=== PATIENT | male | born 1960 | race Caucasian/White ===

== ENCOUNTER 2022-05-17 16:13 | Emergency (ER) | payer OTHER ==
[2022-05-17] MEDS ORDERED: HYDROCODONE/CHLORPHEN 5 ML/OSYR ONE (17:48)
[2022-05-17] MEDS ORDERED: ALBUTEROL 2.5 MG/3 ML NEB SOL ONE (17:49)
[2022-05-17] MEDS ORDERED: IPRATROPIUM BROM 0.5MG/2.5ML ONE (17:49)
--- NOTE | 2022-05-17 19:41 | ER ---
Nurse's Notes [facility] Name: Artem Pena Age: 61 yrs Sex: Male : 1960 Arrival Date: 05/17/2022 Time: 16:15 Bed 9 Private MD: Carlos Young E Diagnosis: Coronavirus infection, unspecified Presentation: 05/17 17:00 Chief complaint: Patient states: tested positive for Covid this morning with a home vg1 test; called [facility] and was told to come to ED for antibodies. Pt c/o headache, body aches, cough and runny nose; denies CP or difficulty breathing, NVD or fever. Coronavirus screen: Vaccine status: Patient reports receiving the 2nd dose of the covid vaccine. Client denies travel out of the [place] in the last 14 days. Ebola Screen: Patient denies exposure to infectious person. Patient denies travel to an Ebola-affected area in the 21 days before illness onset. Initial Sepsis Screen: Does the patient meet any 2 criteria? No. Patient's initial sepsis screen is negative. Does the patient have a suspected source of infection? No. Patient's initial sepsis screen is negative. Risk Assessment: Do you want to hurt yourself or someone else? Patient reports no desire to harm self or others. Onset of symptoms was May 17, 2022. 17:00 Method Of Arrival: Ambulatory vg1 17:00 Acuity: TANGELA 4 vg1 Triage Assessment: 17:03 General: Appears in no apparent distress. uncomfortable, Behavior is calm, cooperative. vg1 Pain: Denies pain. Neuro: Level of Consciousness is awake, alert, obeys commands, Oriented to person, place, time, situation. 21:33 Pain: Also complains of. tw5 Historical: - Allergies: 17:03 Tetanus Vaccines \T\ Toxoid; vg1 - Home Meds: 17:04 Amiodarone Oral [Active]; Furosemide Oral [Active]; vg1 17:06 Insulin [Active]; Jardiance oral [Active]; vg1 - PMHx: 17:03 Diabetes - IDDM; Hypertension; vg1 17:04 Congestive heart failure; vg1 - PSHx: 17:03 Coronary artery bypass graft; vg1 - Immunization history:: Client reports receiving the 2nd dose of the Covid vaccine. - Social history:: Smoking status: Patient denies any tobacco usage or history of. Screenin:21 Abuse screen: Denies threats or abuse. Nutritional screening: No deficits noted. jb4 Tuberculosis screening: No symptoms or risk factors identified. Fall Risk None identified. Assessment: 18:21 General: Appears in no apparent distress. comfortable, Behavior is calm, cooperative, jb4 appropriate for age. Pain: Denies pain. Neuro: Level of Consciousness is awake, alert, obeys commands, Oriented to person, place, time, situation. Cardiovascular: Patient's skin is warm and dry. Respiratory: Airway is patent Respiratory effort is even, unlabored, Respiratory pattern is regular, symmetrical. GI: No signs and/or symptoms were reported involving the gastrointestinal system. : No signs and/or symptoms were reported regarding the genitourinary system. EENT: No signs and/or symptoms were reported regarding the EENT system. Derm: Skin is intact, Skin is pink, warm \T\ dry. Musculoskeletal: Circulation, motion, and sensation intact. Range of motion:. 20:30 Reassessment: Patient appears in no apparent distress at this time. Patient is alert, lp1 oriented x 3, equal unlabored respirations, skin warm/dry/pink. Patient aware of continuing to monitor for s/s of adverse reaction 1 hour after IV infusion. 21:32 Reassessment: Patient states feeling better. Patient states symptoms have improved. tw5 Vital Signs: 17:00 BP 126 / 71; Pulse 78; Resp 16; Temp 98.2(O); Pulse Ox 99% on R/A; Weight 144.24 kg; vg1 Height 6 ft. 4 in. (193.04 cm); Pain 0/10; 19:03 BP 123 / 75; Pulse 85; Resp 16; Pulse Ox 100% on R/A; mb7 20:15 BP 156 / 77; Pulse 79; Resp 18; Temp 97.8(O); Pulse Ox 99% on R/A; lp1 21:32 BP 152 / 72; Pulse Ox 100% on R/A; tw5 17:00 Body Mass Index 38.71 (144.24 kg, 193.04 cm) vg1 ED Course: 16:15 Patient arrived in ED. rg4 16:16 Carlos Young MD is Private Physician. rg4 17:03 Triage completed. vg1 17:04 Arm band placed on. vg1 17:13 Johnathan Nava NP is PHCP. pm1 17:13 Shravan Headley MD is Attending Physician. pm1 17:35 Catrachito Higginbotham, RN is Primary Nurse. jb4 18:21 Patient has correct armband on for positive identification. Bed in low position. Call jb4 light in reach. Side rails up X 1. 19:03 Inserted saline lock: 20 gauge in right forearm, using aseptic technique. mb7 20:18 PHCP role handed off by Johnathan Nava NP [facility] 20:18 Hosea Tavarez PA is PHCP. jmm 20:33 No provider procedures requiring assistance completed. lp1 21:32 IV discontinued, intact, bleeding controlled, No redness/swelling at site. Pressure tw5 dressing applied. Administered Medications: 17:59 Drug: Tussionex Pennkinetic ER (chlorpheniramine-hydrocodone) Suspension 5 ml Route: PO;jb4 18:54 Follow up: Response: No adverse reaction jb4 17:59 Drug: Albuterol 2.5 mg Route: Inhalation; jb4 18:54 Follow up: Response: No adverse reaction jb4 17:59 Drug: AtroVENT (ipratropium) Aerosol 0.5 mg Route: Inhalation; jb4 18:55 Follow up: Response: No adverse reaction jb4 20:25 Drug: Tylenol 1000 mg Route: PO; lp1 20:25 Drug: Benadryl (diphenhydrAMINE) 50 mg Route: IVP; Site: right forearm; lp1 20:30 Drug: Bebtelovimab 175 mg Route: IVP; Site: right forearm; lp1 Medication: 18:21 VIS not applicable for this client. jb4 Outcome: 19:40 Discharge ordered by MD. pm1 21:32 Discharged to home ambulatory. tw5 21:32 Condition: improved 21:32 Discharge instructions given to patient, Instructed on discharge instructions, follow up and referral plans. Demonstrated understanding of instructions, follow-up care, medications, Prescriptions given X 1. 21:33 Patient left the ED. tw5 Signatures: Hosea Tavarez PA PA jmm Pena, Laura, RN RN lp1 Johnathan Nava NP SENIOR UX DEVELOPER pm1 Blanca Sevilla rg4 Catrachito Higginbotham RN RN jb4 Elvia Sevilla RN RN vg1 Celena Magallanes tw5 Cristina Lutz mb7 Corrections: (The following items were deleted from the chart) 17: 17:03 Home Meds: Metoprolol Tartrate Oral; vg1 vg1 17: 17:03 Home Meds: losartan oral; vg1 vg1
--- NOTE | 2022-05-17 19:41 | EDPHYS ---
Physician Documentation [facility] Name: Artem Pena Age: 61 yrs Sex: Male : 1960 Arrival Date: 05/17/2022 Time: 16:15 Bed 9 Private MD: Carlos Young E ED Physician Shravan Headley HPI: 05/17 17:29 This 61 yrs old Male presents to ER via Ambulatory with complaints of Covid+, Headache, pm1 Runny Nose, Cough. 17:29 The patient or guardian reports cough, with no sputum, flu symptoms. Onset: The pm1 symptoms/episode began/occurred yesterday. Modifying factors: The symptoms are alleviated by nothing. the symptoms are aggravated by nothing. Associated signs and symptoms: Pertinent positives: Runny nose, headache, cough, Pertinent negatives: chest pain, ear ache, fever, Shortness of breath. Severity of symptoms: in the emergency department the symptoms are unchanged. The patient has not experienced similar symptoms in the past. The patient has been recently seen by a physician: Patient seen for COVID symptoms by telehealth. Patient took home COVID test and tested positive. Patient was recommended by telehealth medicine to report to the ER for monoclonal antibodies. Historical: - Allergies: 17:03 Tetanus Vaccines \\T\\ Toxoid; vg1 - Home Meds: 17:04 Amiodarone Oral [Active]; Furosemide Oral [Active]; vg1 17:06 Insulin [Active]; Jardiance oral [Active]; vg1 - PMHx: 17:03 Diabetes - IDDM; Hypertension; vg1 17:04 Congestive heart failure; vg1 - PSHx: 17:03 Coronary artery bypass graft; vg1 - Immunization history:: Client reports receiving the 2nd dose of the Covid vaccine. - Social history:: Smoking status: Patient denies any tobacco usage or history of. ROS: 17:29 Cardiovascular: Negative for chest pain, palpitations, and edema. pm1 17:29 Abdomen/GI: Negative for abdominal pain, nausea, vomiting, diarrhea, and constipation, Back: Negative for injury and pain, MS/Extremity: Negative for injury and deformity, Skin: Negative for injury, rash, and discoloration. 17:29 Constitutional: Positive for body aches, Negative for fever, poor PO intake. 17:29 ENT: Positive for sore throat, Negative for ear pain. 17:29 Respiratory: Positive for cough, Negative for shortness of breath. 17:29 Neuro: Positive for headache. 17:29 All other systems are negative. Exam: 17:29 Constitutional: This is a well developed, well nourished patient who is awake, alert, pm1 and in no acute distress. Head/Face: Normocephalic, atraumatic. 17:29 Abdomen/GI: Soft, non-tender, with normal bowel sounds. No distension or tympany. No guarding or rebound. No evidence of tenderness throughout. Back: No spinal tenderness. No costovertebral tenderness. Full range of motion. Skin: Warm, dry with normal turgor. Normal color with no rashes, no lesions, and no evidence of cellulitis. MS/ Extremity: Pulses equal, no cyanosis. Neurovascular intact. Full, normal range of motion. 17:29 Cardiovascular: Exam negative for acute changes, Rate: normal, Rhythm: regular, Pulses: no pulse deficits are appreciated. 17:29 Respiratory: Exam negative for acute changes, respiratory distress, shortness of breath, Breath sounds: are clear throughout. 17:29 Neuro: Exam negative for acute changes, Orientation: is normal, Mentation: is normal, Motor: is normal, moves all fours. Vital Signs: 17:00 BP 126 / 71; Pulse 78; Resp 16; Temp 98.2(O); Pulse Ox 99% on R/A; Weight 144.24 kg; vg1 Height 6 ft. 4 in. (193.04 cm); Pain 0/10; 19:03 BP 123 / 75; Pulse 85; Resp 16; Pulse Ox 100% on R/A; mb7 20:15 BP 156 / 77; Pulse 79; Resp 18; Temp 97.8(O); Pulse Ox 99% on R/A; lp1 21:32 BP 152 / 72; Pulse Ox 100% on R/A; tw5 17:00 Body Mass Index 38.71 (144.24 kg, 193.04 cm) vg1 MDM: 17:15 Patient medically screened. pm1 18:56 ED course: Patient came to the ER with the recommendation from a physician via pm1 telehealth visit to come to the ER for monoclonal antibodies. Patient informed that the medication is authorized by the FDA for emergency use for treatment of high risk coronavirus patients who are not hospitalized and it is currently an investigational drug and not approved for any indication. Patient consents to receiving the medication. 19:38 Data reviewed: vital signs. Data interpreted: Pulse oximetry: on room air is 100 %. pm1 Interpretation: normal. Counseling: I had a detailed discussion with the patient and/or guardian regarding: the historical points, exam findings, and any diagnostic results supporting the discharge/admit diagnosis, lab results, the need for outpatient follow up, to return to the emergency department if symptoms worsen or persist or if there are any questions or concerns that arise at home. 05/17 17:14 Order name: COVID-19 SARS RT PCR (Document "Date of Onset" if Symptomatic); Complete pm1 Time: 18:51 05/17 17:14 Order name: Flu; Complete Time: 18:37 pm1 05/17 17:25 Order name: Strep; Complete Time: 18:37 pm1 05/17 18:09 Order name: Throat Culture EDMS 05/17 18:51 Order name: IV Saline Lock; Complete Time: 19:04 pm1 Administered Medications: 17:59 Drug: Tussionex Pennkinetic ER (chlorpheniramine-hydrocodone) Suspension 5 ml Route: PO;jb4 18:54 Follow up: Response: No adverse reaction jb4 17:59 Drug: Albuterol 2.5 mg Route: Inhalation; jb4 18:54 Follow up: Response: No adverse reaction jb4 17:59 Drug: AtroVENT (ipratropium) Aerosol 0.5 mg Route: Inhalation; jb4 18:55 Follow up: Response: No adverse reaction jb4 20:25 Drug: Tylenol 1000 mg Route: PO; lp1 20:25 Drug: Benadryl (diphenhydrAMINE) 50 mg Route: IVP; Site: right forearm; lp1 20:30 Drug: Bebtelovimab 175 mg Route: IVP; Site: right forearm; lp1 Disposition: 05/18 07:07 Co-signature as Attending Physician, Shravan Headley MD I agree with the assessment and kdr plan of care. Disposition Summary: 05/17/22 19:40 Discharge Ordered Location: Home pm1 Problem: new pm1 Symptoms: have improved pm1 Condition: Stable pm1 Diagnosis - Coronavirus infection, unspecified pm1 Followup: pm1 - With: Emergency Department - When: As needed - Reason: Worsening of condition Followup: pm1 - With: Private Physician - When: 2 - 3 days - Reason: Recheck today's complaints, Continuance of care, Re-evaluation by your physician Discharge Instructions: - Discharge Summary Sheet pm1 - COVID-19 pm1 - COVID-19 Frequently Asked Questions pm1 - 10 Things You Can Do to Manage Your COVID-19 Symptoms at Home - [facility] pm1 - COVID-19: Quarantine vs. Isolation - [facility] pm1 Forms: - Medication Reconciliation Form pm1 - Thank You Letter pm1 - Antibiotic Education pm1 - Prescription Opioid Use pm1 Prescriptions: - Guaifenesin AC 10-100 mg/5 mL Oral Liquid - take 5 milliliter by ORAL route every 4 hours As needed; 120 milliliter; m Refills: 0, Product Selection Permitted Signatures: Dispatcher [employer] EDMS Shravan Headley MD MD kdr Pena, Laura RN RN lp1 Johnathan Nava NP MEDICAL FRONT DESK COORDINATOR pm1 Catrachito Higginbotham, RA RN jb4 Elvia Sevilla, RN RN vg1 Corrections: (The following items were deleted from the chart) 05/17 17:04 17:03 Home Meds: Metoprolol Tartrate Oral; vg1 vg1 17:04 17:03 Home Meds: losartan oral; vg1 vg1
[2022-05-17] MEDS ORDERED: DIPHENHYDRAMINE 50 MG/ML VIAL ONE (20:06)
[2022-05-17] MEDS ORDERED: ACETAMINOPHEN 500 MG TAB ONE (20:06)
[2022-05-17] MEDS ORDERED: BEBTELOVIMAB 175 MG/2 ML VIAL IV ONE (20:24)
[2022-05-17 21:48] VITALS: TEMP 97.8
[2022-05-17 21:50] VITALS: BP 152/72; O2SAT 100
== END 2022-05-17 21:33 | disposition home or self-care (01) ==
LOC: ER 16:13
DX: U07.1 COVID-19 (principal); E11.9 Type 2 diabetes mellitus without complications; I10 Essential (primary) hypertension; I50.9 Heart failure, unspecified; Z79.4 Long term (current) use of insulin; Z88.7 Allergy status to serum and vaccine; Z95.1 Presence of aortocoronary bypass graft
CPT/HCPCS: 87070; 87081; 87804 ×2; 99284; U0003; J1200

== ENCOUNTER 2022-12-19 13:16 | Emergency (ER) | payer OTHER ==
--- OUTSIDE RECORDS SUMMARY | 2022-12-19 13:31 | XMS REPORT | Continuity of Care Document ---
:[address] [facility] t Address [address] [place] [address] Dr. Ju[address]. [address] [place] [address] Care Team Providers Name Role Phone Kj Lopez MD Primary Care Physician KJ LOPEZ Attending Clinician Unavailable MOI ESTRADA Attending Clinician Unavailable MOI ESTRADA Attending Clinician Unavailable MK PORTER Attending Clinician Unavailable KJ LOPEZ Attending Clinician Unavailable Dia Attending Clinician Unavailable Paulette Harris MA Attending Clinician Unavailable AIMEE MCGOWAN Attending Clinician Unavailable Danial KNAPP, Fany Attending Clinician Unavailable Doctor Unassigned, Gaston Attending Clinician Unavailable JUAREZ GAO Attending Clinician Unavailable RAEANN BRAND Attending Clinician Unavailable Juarez Gao MD Attending Clinician [phone] Huy Judge DO Attending Clinician Draw, [facility] Attending Clinician Unavailable Blaise Rebollar Attending Clinician BLAISE CROUCH Attending Clinician Unavailable Angelo KNAPP, Cristina Sheridan Attending Clinician Petrona Padilla Attending Clinician Maya Jessica RN Attending Clinician Jeramy SAFETY PHYSICIAN, Elisabet Rinaldi Attending Clinician Oleksandr Santiago MD Attending Clinician [phone] Dia Admitting Clinician Unavailable AIMEE MCGOWAN Admitting Clinician Unavailable Vishal ASENCIO, Moi Admitting Clinician Oleksandr Santiago MD Admitting Clinician [phone] Payers Payer Name Policy Type Policy Number Effective Date Expiration Date S megan [employer] [id number] 2021 2024 [facility] 00:00:00 00:00:00 OTHER CI [id number] [facility] [id number] [facility] FROM [facility] Problems Condition Condition Condition Status Onset Resolution Last Treating Co mments Source Name Details Category Date Date Treatment Clinician Date Morbid Morbid Problem Active [place] obesity Obesity 07-25 Family 00:00: Practic 00 e Retinopath Retinopath Problem Active [place] y due to y Due to 07-25 Family type 2 Type 2 00:00: Practic diabetes Diabetes 00 e mellitus Mellitus Bilateral Bilateral Problem Active Hilario jada cataracts Cataracts 04 Fami ly 00:00: Practic 00 e Long-term Long-term Problem Active Hilario jada current Current 304 Family use of Use of 00:00: Practic insulin Insulin 00 e 5 MONTH 5 MONTH Diagnosis Active 2022-07-18 Memoria FOLLOW UP FOLLOW UP 12-27 16:05:00 l Active 00:00: Max 12/27/2021 00 [facility] I25.10 I25.10 Diagnosis Active 2020-112021-12-04 Me moria ECHO ECHO 0-26 08:34:00 l COMPLETE COMPLETE 00:00: Riaz sullivan Active 00 09/10/2021 [facility] 3 MONTHS 3 MONTHS Diagnosis Active 2020-112021-12-27 [facility] FOLLOW FOLLOW 0-14 10:07:00 l UP/ECHO UP/ECHO 00:00: Max Active 00 08/29/2021 [facility] P22.0 - P22.0 - Diagnosis Active 2021-07-23 [facility] RESPIRATOR RESPIRATOR 9 14:01:00 l Y DISTRESS Y DISTRESS 00:01: He rmann SYNDROME SYNDROME 00 Active 07/23/2021 OPID [facility] SOB SOB Diagnosis Active 2021 Mem oria Active 07-16 15:20:00 l 07/16/2021 00:00: Riaz sullivan 00 [facility] N/A N/A Diagnosis Active 2021-07-28 Mem oria Active 07-16 12:53:00 l 07/16/2021 00:00: Riaz sullivan 00 [facility] Aspartate Aspartate Problem Active Hilario jada aminotrans Aminotrans 06-23 Fa eliz ferase ferase 00:00: Practic serum Serum 00 e level Level raised Raised I25.10 - I25.10 - Diagnosis Active 2021-06-26 [facility] ATHSCL ATHSCL 06-19 13:26:00 l HEART HEART 00:01: Max DISEASE OF DISEASE OF 00 GAKONA GAKONA Active 06/19/2021 OPID [facility] I25.10 I25.10 Diagnosis Active 2021-06-21 Me moria Active 06-19 09:32:00 l 06/19/2021 00:00: Riaz sullivan 00 [facility] Foot Foot Problem Active [place] callus Callus 06-18 Family 00:00: Practic 00 e Body mass Body Mass Problem Active Hilario jada index 40+ Index 40+ 8-03 Fami ly - severely - Severely 00:00: Pr actic obese Obese 00 e Atheroscle Atheroscle Problem Active [place] ill[place] rosis of rosis of 06-18 Family coronary Coronary 00:00: Practi c artery Artery 00 e without without angina Angina pectoris Pectoris Type 2 Type 2 Problem Active [place] diabetes Diabetes 06-18 Family mellitus Mellitus 00:00: Practi c 00 e Hyperlipid Hyperlipid Problem Active [place] illage emia emia 8- Family 00:00: Practic 00 e Hypertensi Hypertensi Problem Active V illage ve ve 06-18 Family disorder Disorder 00:00: Practi c 00 e Atrial Atrial Problem Active [place] fibrillati Fibrillati 06-18 Fa eliz on on 00:00: Practic 00 e 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 R07.9,I25 Diagnosis Active 2021-06-05 Memoria 10,I25.10, .10,I25.10 05-29 10:50:00 l I50.22 ,I50.22 00:00: Enochs Active 00 05/29/2021 [place] 6WK FOLLOW 6WK Diagnosis Active 2021-08-29 Memoria UP FOLLOW UP 05-23 14:00:00 l Active 00:00: Max 05/23/2021 00 [facility] NSTEMI NSTEMI Disease Active [place] (non-ST (non-ST 05-23 Health elevated elevated 00:00: myocardial myocardial 00 infarction infarction ) ) Acute Acute Disease Active [facility] congestive congestive 05-23 He alth heart heart 00:00: failure failure 00 New onset New onset Disease Active [facility] atrial atrial 05-23 Health fibrillati fibrillati 00:00: on on 00 I50.22 I50.22 Diagnosis Active 2021-05-22 Me moria I25.10 I25.10 05-08 08:25:00 l I48.91 I48.91 00:00: Enochs Active 00 05/08/2021 [facility] I25.10,I50 I25.10,I5 Diagnosis Active 2021-04-18 Memoria .22,I48.91 0.22,I48.9 04-02 07:40:00 l 1 Active 00:00: Max 04/02/2021 00 [place] 2 MO F/U 2 MO F/U Diagnosis Active 2021-05-23 Memoria Active 03-22 10:08:00 l 03/22/2021 00:00: Riaz sullivan [address] FRANCISCO J PT/ NEW Diagnosis Active 2021-03-22 [place] BECKER PT/ 03-04 10:48:00 l VANDERGRIF ROSITA 00:00: Riaz sullivan FT/CHF/UNS VANDERGRIF 00 PE FT/CHF/UNS PE Active 03/04/2021 [facility] Morbid Morbid Disease Active 2019-11 [place] obesity obesity 1-13 Health with body with body 00:00: mass index mass index 00 of of 40.0-49.9 40.0-49.9 Class 3 Class 3 Disease Active 2019-11 [place] severe severe 1-13 Health obesity obesity 00:00: due to due to 00 excess excess calories calories with body with body mass index mass index (BMI) of (BMI) of 40.0 to 40.0 to 44.9 in 44.9 in adult adult Chest pain Chest pain Disease Active 2019-11 U nivers 1-12 ity of 00:00: [address] Branch Congestive Congestiv Problem Resolve 2021-12-29 Memoria heart e heart d 23:48:14 l failure failure Max (disorder) (disorder) Resolved Problem 12/29/2021 [facility], Cammy Alcantar [facility], [facility] [place] Atheroscle Atheroscl Problem Active 2021-12-29 Memoria rosis of erosis of 23:48:14 l coronary coronary Riaz n artery artery (disorder) (disorder) Active Problem 12/29/2021 [facility], Cammy Alcantar [facility] Diabetes Diabetes Problem Active 2021-12-29 Memoria mellitus mellitus 23:48:14 l (disorder) (disorder) He rmann Active Problem 12/29/2021 [facility], NATALIYA Drake,M NATALIYA [facility], [facility] Neuropathy Neuropath Problem Active 2021-12-29 Memoria (disorder) y 23:48:14 l (disorder) Riaz n Active Problem 12/29/2021 [facility], NATALIYA Drake,M NATALIYA [facility], [facility] ATHSCL ATHSCL Diagnosis Active 2021-07-28 Hi moria HEART HEART 12:53:00 l DISEASE OF DISEASE OF He rmada GAKONA GAKONA CORONARY CORONARY Active [facility] Z95.1 - Z95.1 - Diagnosis Active 2021-12-23 Memoria PRESENCE PRESENCE 13:15:00 l OF OF Max AORTOCORON AORTOCORON NAVNEET BYPA NAVNEET BYPA Active NATALIYA Drake,M Radha AN [facility] Allergies, Adverse Reactions, Alerts Allergy Allergy Status Severity Reaction(s) Onset Inactive Treating Comm ents Source Name Type Date Date Clinician Metformi Propensi Active Nausea 2019-11 Univer s n ty to and/or 12-10 ity of adverse Vomiting 00:00: [place] reaction 00 [facility] METFORMI DRUG Active N/V 2019-11 Univers N INGREDI 25 ity of 00:00: [place] 00 Medical Branch Lisinopr Propensi Active Cough 2019-11 Univer s il ty to -14 ity of adverse 00:00: [place] reaction 00 Medical s [facility] LISINOPR DRUG Active COUGH 2019-11 Univers IL INGREDI 14 ity of 00:00: [place] 00 [facility] NO KNOWN Drug Active Univers ALLERGIE Class ity of S [facility] Trulicit Allergy Active Moderate Headache Hilario jada y to Family substanc Practic e e lisinopr lisinopr Active Memori a il il l Max metFORMI metFORMI Active Memori a N N l Max Social History Social Habit Start Date Stop Date Quantity Comments Source Exposure to Not sure [facility] SARS-CoV-2 (event) Alcohol intake 2021-08-08 2021-08-08 Ex-drinker [facility] 00:00:00 00:00:00 (finding) Social History 2021-05-23 2021-05-23 Radha triana 15:18:29 15:18:29 Tobacco use and 2021-05-23 2021-05-23 Smokeless tobacco [place] [facility] exposure 00:00:00 00:00:00 non-user Sex Ass[birth year] At [birth year] [facility] y of 00:00:00 00:00:00 [facility] Smoking Status Start Date Stop Date Source Tobacco smoking consumption unknown [facility] Never smoked tobacco [facility] Medications Ordered Filled Start Stop Current Ordering Indication Dosage Frequency Signature Comments Components Source Medication Medication Date Date Medication? Clinician (SIG) Name Name 24 HR Yes 100 mg = 1 Memori a Metoprolol 2-11 tab, PO, l Tartrate 17:36: Daily, # Debra nn 100 MG 00 90 tab, 3 Extended Refill(s), Release Pharmacy: [facility], 193.04, cm, 08/29/21 17:30:00 CDT, Height, 157.727, kg, 08/29/21 17:30:00 CDT, Weight atorvastati Yes 20 mg = 1 M emoria n 20 MG 2-11 tab, PO, l Oral Tablet 17:36: Bedtime, # Eno[place] [Lipitor] 00 90 tab, 3 Refill(s), Pharmacy: [facility], 193.04, cm, 08/29/21 17:30:00 CDT, Height, 157.727, kg, 08/29/21 17:30:00 CDT, Weight losartan 25 Yes 25 mg = 1 M emoria mg oral 2-11 tab, PO, l tablet 17:34: Daily, # Enochs 00 90 tab, 3 Refill(s), Pharmacy: [facility], 193.04, cm, 08/29/21 17:30:00 CDT, Height, 157.727, kg, 08/29/21 17:30:00 CDT, Weight AMIODarone Yes 200 mg = 1 M emoria 200 mg oral 2-11 tab, PO, l tablet 17:30: Daily, # Max 00 90 tab, 3 Refill(s), Pharmacy: [facility], 193.04, cm, 08/29/21 17:30:00 CDT, Height, 157.727, kg, 08/29/21 17:30:00 CDT, Weight apixaban 5 2021-0 Yes 5 mg = 1 Mem oria MG Oral 2-11 tab, PO, l Tablet 17:30: Q12H, # Max [Eliquis] 00 180 tab, 3 Refill(s), Pharmacy: [facility], 193.04, cm, 08/29/21 17:30:00 CDT, Height, 157.727, kg, 08/29/21 17:30:00 CDT, Weight Furosemide Yes 40 mg = 1 Me moria 40 MG Oral 2-11 tab, PO, l Tablet 17:30: BID Enochs 00 Diuretic, # 180 tab, 3 Refill(s), Pharmacy: [facility], 193.04, cm, 08/29/21 17:30:00 CDT, Height, 157.727, kg, 08/29/21 17:30:00 CDT, Weight apixaban 5 No 5 mg, PO, Me moria MG Oral 2-11 Q12H, tab, l Tablet 16:37: 0 Max [Eliquis] 00 Refill(s), For Atrial Fibrilatio n 3 ML Yes 2 unit, 0 Memoria Insulin, 2-11 Refill(s) l Aspart, 16:36: Enochs Human 100 00 UNT/ML Pen Injector [NovoLog] 3 ML Yes 40 unit, Memoria Insulin 2-11 SUB-Q, l Glargine 16:36: Bedtime, # Her baer 100 UNT/ML 00 12 mL, 3 Pen Refill(s) Injector [Basaglar] apixaban Yes 5mg Q.5D Take 5 mg UT (Eliquis) 5 2-01 by mouth 2 He alth MG tablet 11:31: (two) 02 times a day. empaglifloz Yes 1{tbl} QD Take 1 UT in 2-01 tablet by Health (Jardiance) 11:31: mouth 1 25 MG 02 (one) time each day. levothyroxi Yes 50ug Take 50 UT ne 2-01 mcg by Health (Synthroid, 11:31: mouth 1 Levoxyl) 50 02 (one) time MCG tablet each day before breakfast. apixaban Yes 5mg Q.5D Take 5 mg UT (Eliquis) 5 2-01 by mouth 2 He alth MG tablet 11:31: (two) 02 times a day. empaglifloz Yes 1{tbl} QD Take 1 UT in 2-01 tablet by Health (Jardiance) 11:31: mouth 1 25 MG 02 (one) time each day. levothyroxi Yes 50ug Take 50 UT ne 2-01 mcg by Health (Synthroid, 11:31: mouth 1 Levoxyl) 50 02 (one) time MCG tablet each day before breakfast. losartan 25 2020-11 Yes 25 mg = 1 M emoria mg oral 0-14 tab, PO, l tablet 20:40: Daily, # Enochs 00 90 tab, 1 Refill(s), Pharmacy: [facility], 193.04, cm, 07/25/21 3:56:00 CDT, Height, 161.534, kg, 07/23/21 9:12:00 CDT, Weight Furosemide 2020-11 Yes 40 mg = 1 Me moria 40 MG Oral 0-14 tab, PO, l Tablet 20:38: BID Enochs 00 Diuretic, # 180 tab, 3 Refill(s), Pharmacy: [facility], 193.04, cm, 07/25/21 3:56:00 CDT, Height, 161.534, kg, 07/23/21 9:12:00 CDT, Weight AMIODarone 2020-11 Yes 400 mg = 2 M emoria 200 mg oral 0-14 tab, PO, l tablet 20:38: BID, # 360 Debra nn 00 tab, 3 Refill(s), Pharmacy: [facility], 193.04, cm, 07/25/21 3:56:00 CDT, Height, 161.534, kg, 07/23/21 9:12:00 CDT, Weight clopidogrel 2020-11 Yes 75 mg = 1 M emoria 75 mg oral 0-14 tab, PO, l tablet 20:37: Daily, # Enochs 00 90 tab, 3 Refill(s), Pharmacy: [facility], 193.04, cm, 07/25/21 3:56:00 CDT, Height, 161.534, kg, 07/23/21 9:12:00 CDT, Weight levothyroxi 0 Yes 50ug Take 50 UT ne 9-23 mcg by Health (Synthroid, 09:14: mouth 1 Levoxyl) 50 13 (one) time MCG tablet each day before breakfast. levothyroxi 0 Yes 50ug Take 50 UT ne 9-23 mcg by Health (Synthroid, 09:14: mouth 1 Levoxyl) 50 13 (one) time MCG tablet each day before breakfast. No known No No known UT medications 9- medication He alth 09:14: s 13 levothyroxi 0 Yes 50ug Take 50 UT ne 9-23 mcg by Health (Synthroid, 09:14: mouth 1 Levoxyl) 50 13 (one) time MCG tablet each day before breakfast. levothyroxi 0 Yes 50ug Take 50 UT ne 9-23 mcg by Health (Synthroid, 09:14: mouth 1 Levoxyl) 50 13 (one) time MCG tablet each day before breakfast. No known No No known UT medications 9-23 medication He alth 09:14: s 13 levothyroxi 0 Yes 50ug Take 50 UT ne 9-23 mcg by Health (Synthroid, 09:14: mouth 1 Levoxyl) 50 13 (one) time MCG tablet each day before breakfast. levothyroxi 0 Yes 50ug Take 50 UT ne 9-23 mcg by Health (Synthroid, 09:14: mouth 1 Levoxyl) 50 13 (one) time MCG tablet each day before breakfast. apixaban 0 Yes 5mg Q.5D Take 5 mg UT (Eliquis) 5 - by mouth 2 He alth MG tablet 09:10: (two) 00 times a day. empaglifloz 0 Yes 1{tbl} QD Take 1 UT in 9- tablet by Health (Jardiance) 09:10: mouth 1 25 MG 00 (one) time each day. apixaban 0 Yes 5mg Q.5D Take 5 mg UT (Eliquis) 5 08-08 by mouth 2 He alth MG tablet 09:10: (two) 00 times a day. empaglifloz 2021-0 Yes 1{tbl} QD Take 1 UT in 08-08 tablet by [employer] (Posterousdiance) 09:10: mouth 1 25 MG 00 (one) time each day. apixaban 2021-0 Yes 5mg Q.5D Take 5 mg UT (Eliquis) 5 08-08 by mouth 2 He alth MG tablet 09:10: (two) 00 times a day. empaglifloz 2021-0 Yes 1{tbl} QD Take 1 UT in 08-08 tablet by [employer] (Within[employer]) 09:10: mouth 1 25 MG 00 (one) time each day. apixaban 2021-0 Yes 5mg Q.5D Take 5 mg UT (Eliquis) 5 08-08 by mouth 2 He alth MG tablet 09:10: (two) 00 times a day. empaglifloz 2021-0 Yes 1{tbl} QD Take 1 UT in 08-08 tablet by [employer] (Posterousdiance) 09:10: mouth 1 25 MG 00 (one) time each day. apixaban 2021-0 Yes 5mg Q.5D Take 5 mg UT (Eliquis) 5 08-08 by mouth 2 He alth MG tablet 09:10: (two) 00 times a day. empaglifloz 2021-0 Yes 1{tbl} QD Take 1 UT in 08-08 tablet by [employer] (Within[employer]) 09:10: mouth 1 25 MG 00 (one) time each day. apixaban 2021-0 Yes 5mg Q.5D Take 5 mg UT (Eliquis) 5 08-08 by mouth 2 He alth MG tablet 09:10: (two) 00 times a day. apixaban 2021-0 Yes 5mg Q.5D Take 5 mg UT (Eliquis) 5 08-08 by mouth 2 He alth MG tablet 09:10: (two) 00 times a day. apixaban 2021-0 Yes 5mg Q.5D Take 5 mg UT (Eliquis) 5 08-08 by mouth 2 He alth MG tablet 09:10: (two) 00 times a day. empaglifloz 2021-0 Yes 1{tbl} QD Take 1 UT in 08-08 tablet by [employer] ([employer]) 09:10: mouth 1 25 MG 00 (one) time each day. apixaban 2021-0 Yes 5mg Q.5D Take 5 mg UT (Eliquis) 5 08-08 by mouth 2 He alth MG tablet 09:10: (two) 00 times a day. empaglifloz 2021-0 Yes 1{tbl} QD Take 1 UT in - tablet by [employer] ([employer]) 09:10: mouth 1 25 MG 00 (one) time each day. apixaban 2021-0 Yes 5mg Q.5D Take 5 mg UT (Eliquis) 5 08-08 by mouth 2 He alth MG tablet 09:10: (two) 00 times a day. apixaban 2021-0 Yes 5mg Q.5D Take 5 mg UT (Eliquis) 5 08-08 by mouth 2 He alth MG tablet 09:10: (two) 00 times a day. empaglifloz 2021-0 Yes 1{tbl} QD Take 1 UT in 08-08 tablet by [employer] ([facility]) 09:10: mouth 1 25 MG 00 (one) time each day. apixaban 2021-0 Yes 5mg Q.5D Take 5 mg UT (Eliquis) 5 08-08 by mouth 2 He alth MG tablet 09:10: (two) 00 times a day. empaglifloz 2021-0 Yes 1{tbl} QD Take 1 UT in - tablet by [employer]) 09:10: mouth 1 25 MG 00 (one) time each day. apixaban 2021-0 Yes 5mg Q.5D Take 5 mg UT (Eliquis) 5 08-08 by mouth 2 He alth MG tablet 09:10: (two) 00 times a day. empaglifloz 2021-0 Yes 1{tbl} QD Take 1 UT in - tablet by [employer] ([facility]) 09:10: mouth 1 25 MG 00 (one) time each day. apixaban 2021-0 Yes 5mg Q.5D Take 5 mg UT (Eliquis) 5 08-08 by mouth 2 He alth MG tablet 09:10: (two) 00 times a day. empaglifloz 2021-0 Yes 1{tbl} QD Take 1 UT in - tablet by Health (Jardiance) 09:10: mouth 1 25 MG 00 (one) time each day. apixaban Yes 5mg Q.5D Take 5 mg UT (Eliquis) 5 08-08 by mouth 2 He alth MG tablet 09:10: (two) 00 times a day. empaglifloz Yes 1{tbl} QD Take 1 UT in 08-08 tablet by Health (Jardiance) 09:10: mouth 1 25 MG 00 (one) time each day. apixaban Yes 5mg Q.5D Take 5 mg UT (Eliquis) 5 08-08 by mouth 2 He alth MG tablet 09:10: (two) 00 times a day. Jardiance No Notes: Memori a -14 (Same as: l 14:00: Jardiance) Enochs 00 Lipitor No Notes: Memoria 14 (Same as: l 02:00: Lipitor) Max potassium No Notes: Memori a chloride 20 07-29 (Same as: l mEq oral 22:00: K-Dur 20) Herm ada tablet, 00 "Do Not extended Crush" release Give with (KCL) food and full glass of water For patients unable to swallow tablet, dissolve in one half glass of water. Allow about 2 minutes for the tablets to disintegra te. Stir before giving to prepare slurry and administer . Please exclude Patient s with feeding tube less than 14 Amharic (Dobhoff, J-tube etc) and pediatric and patients. Furosemide No Notes: Memor ia 07-29 (Same as: l 21:00: Lasix) May cause GI upset. Give with food or milk. tramadol Yes 50 mg = 1 Ross shannon hydrochlori 9-13 tab, PO, l de 50 MG 17:22: Q6H, # 10 Herm ada Oral Tablet 00 tab, 0 Refill(s), Pharmacy: [facility], 193.04, cm, 07/25/21 3:56:00 CDT, Height, 161.534, kg, 07/23/21 9:12:00 CDT, Weight levothyroxi Yes 50 Memori a ne 50 mcg 9-13 microgram l (0.05 mg) 15:04: = 1 tab, Herm ada oral tablet 00 PO, Q630AM, # 30 tab, 0 Refill(s), Pharmacy: [facility], 193.04, cm, 07/25/21 3:56:00 CDT, Height, 161.534, kg, 07/23/21 9:12:00 CDT, Weight sacubitril 2020-0 Yes 1 tab, PO, M emoria 24 MG / 9-13 Q12H, # 60 l valsartan 15:04: tab, 0 Riaz n 26 MG Oral 00 Refill(s), Tablet Pharmacy: [Entresto] [facility], 193.04, cm, 07/25/21 3:56:00 CDT, Height, 161.534, kg, 07/23/21 9:12:00 CDT, Weight tamsulosin 2020-0 Yes 0.4 mg = 1 M emoria 0.4 mg oral 9-13 cap, PO, l capsule 15:04: After Max 00 Breakfast, # 30 cap, 0 Refill(s), Pharmacy: [facility], 193.04, cm, 07/25/21 3:56:00 CDT, Height, 161.534, kg, 07/23/21 9:12:00 CDT, Weight Furosemide 2020-0 Yes 40 mg = 1 Me moria 40 MG Oral 9-13 tab, PO, l Tablet 15:03: BID Enochs 00 Diuretic, # 60 tab, 0 Refill(s), Pharmacy: [facility], 193.04, cm, 07/25/21 3:56:00 CDT, Height, 161.534, kg, 07/23/21 9:12:00 CDT, Weight carvedilol 2020-0 Yes 6.25 mg = Me moria 6.25 mg 9-13 1 tab, PO, l oral tablet 15:03: Q12H, # 60 Enochs 00 tab, 0 Refill(s), Pharmacy: [facility], 193.04, cm, 07/25/21 3:56:00 CDT, Height, 161.534, kg, 07/23/21 9:12:00 CDT, Weight clopidogrel Yes 75 mg = 1 M emoria 75 mg oral 9-13 tab, PO, l tablet 15:03: Daily, # Max 00 60 tab, 0 Refill(s), Pharmacy: [facility], 193.04, cm, 07/25/21 3:56:00 CDT, Height, 161.534, kg, 07/23/21 9:12:00 CDT, Weight ferrous Yes 325 mg = 1 Ross shannon sulfate 325 9-13 tab, PO, l MG Oral 15:03: Daily, # Riaz n Tablet 00 30 tab, 0 Refill(s), Pharmacy: [facility], 193.04, cm, 07/25/21 3:56:00 CDT, Height, 161.534, kg, 07/23/21 9:12:00 CDT, Weight apixaban 5 Yes 5 mg = 1 Mem oria mg oral 9-13 tab, PO, l tablet 15:02: Q12H, For Riaz n 00 Atrial Fibrillati on, # 60 tab, 0 Refill(s), Pharmacy: [facility], 193.04, cm, 07/25/21 3:56:00 CDT, Height, 161.534, kg, 07/23/21 9:12:00 CDT, Weight AMIODarone Yes 400 mg = 2 M emoria 200 mg oral 9-13 tab, PO, l tablet 15:01: BID, # 90 Riaz n 00 tab, 0 Refill(s), Pharmacy: [facility], 193.04, cm, 07/25/21 3:56:00 CDT, Height, 161.534, kg, 07/23/21 9:12:00 CDT, Weight Plavix No Notes: Memoria 9-13 (Same As: l 14:00: Plavix) ferrous No Notes: Memoria sulfate -13 Give with l 14:00: food. iron elemental [id number] as ferrous sulfate Dose=___mg elemental iron Furosemide No Notes: Memor ia 9-13 (Same as: l 13:09: Lasix) MEDICATION WASTE Product Size: 40 mg Product Wasted: ___ mg Potassium No Notes: Memori a Chloride 07-29 (Same as: l 13:04: K-Dur 20) "Do Not Crush" Give with food and full glass of water For patients unable to swallow tablet, dissolve in one half glass of water. Allow about 2 minutes for the tablets to disintegra te. Stir before giving to prepare slurry and administer . Please exclude Patient s with feeding tube less than 14 Amharic (Dobhoff, J-tube etc) and pediatric and patients. Lasix No Notes: Memoria 07-29 (Same as: l 02:00: Lasix) carvedilol Yes 1{tbl} Q12H Take 1 UT (Coreg) 9-13 tablet by Health 6.25 MG 00:00: mouth tablet 00 every 12 (twelve) hours. clopidogrel Yes 1{tbl} QD Take 1 UT (Plavix) 75 9-13 tablet by Hea lth MG tablet 00:00: mouth 1 00 (one) time each day. tamsulosin Yes 1{capsu QD Take 1 UT (Flomax) 9-13 le} capsule by Healt h 0.4 MG 24 00:00: mouth 1 hr capsule 00 (one) time each day. traMADol Yes 1{tbl} Q6H Take 1 UT (Ultram) 50 9-13 tablet by Hea lth MG tablet 00:00: mouth 00 every 6 (six) hours. carvedilol Yes 1{tbl} Q12H Take 1 UT (Coreg) 9-13 tablet by Health 6.25 MG 00:00: mouth tablet 00 every 12 (twelve) hours. clopidogrel Yes 1{tbl} QD Take 1 UT (Plavix) 75 9-13 tablet by Hea lth MG tablet 00:00: mouth 1 00 (one) time each day. tamsulosin Yes 1{capsu QD Take 1 UT (Flomax) 9-13 le} capsule by Healt h 0.4 MG 24 00:00: mouth 1 hr capsule 00 (one) time each day. traMADol 2021-0 Yes 1{tbl} Q6H Take 1 UT (Ultram) 50 9-13 tablet by Hea lth MG tablet 00:00: mouth 00 every 6 (six) hours. carvedilol 2021-0 Yes 1{tbl} Q12H Take 1 UT (Coreg) 9-13 tablet by Health 6.25 MG 00:00: mouth tablet 00 every 12 (twelve) hours. clopidogrel 202-0 Yes 1{tbl} QD Take 1 UT (Plavix) 75 9-13 tablet by Hea lth MG tablet 00:00: mouth 1 00 (one) time each day. tamsulosin 2020-0 Yes 1{capsu QD Take 1 UT (Flomax) 9-13 le} capsule by [facility] 0.4 MG 24 00:00: mouth 1 hr capsule 00 (one) time each day. traMADol 2020-0 Yes 1{tbl} Q6H Take 1 UT (Ultram) 50 9-13 tablet by [facility]a [facility] MG tablet 00:00: mouth 00 every 6 (six) hours. carvedilol 2020-0 Yes 1{tbl} Q12H Take 1 UT (Coreg) 9-13 tablet by Health 6.25 MG 00:00: mouth tablet 00 every 12 (twelve) hours. clopidogrel 2020-0 Yes 1{tbl} QD Take 1 UT (Plavix) 75 9-13 tablet by [facility] MG tablet 00:00: mouth 1 00 (one) time each day. tamsulosin 2020-0 Yes 1{capsu QD Take 1 UT (Flomax) 9-13 le} capsule by Healt [facility] 0.4 MG 24 00:00: mouth 1 hr capsule 00 (one) time each day. traMADol 202-0 Yes 1{tbl} Q6H Take 1 UT (Ultram) 50 9-13 tablet by [facility] MG tablet 00:00: mouth 00 every 6 (six) hours. carvedilol 2021-0 Yes 1{tbl} Q12H Take 1 UT (Coreg) 9-13 tablet by Health 6.25 MG 00:00: mouth tablet 00 every 12 (twelve) hours. clopidogrel 2020-0 Yes 1{tbl} QD Take 1 UT (Plavix) 75 9-13 tablet by [facility] MG tablet 00:00: mouth 1 00 (one) time each day. tamsulosin 2020-0 Yes 1{capsu QD Take 1 UT (Flomax) 9-13 le} capsule by Healt [facility] 0.4 MG 24 00:00: mouth 1 hr capsule 00 (one) time each day. traMADol 2020-0 Yes 1{tbl} Q6H Take 1 UT (Ultram) 50 9-13 tablet by [facility] MG tablet 00:00: mouth 00 every 6 (six) hours. carvedilol 2020-0 Yes 1{tbl} Q12H Take 1 UT (Coreg) 9-13 tablet by Health 6.25 MG 00:00: mouth tablet 00 every 12 (twelve) hours. clopidogrel 2020-0 Yes 1{tbl} QD Take 1 UT (Plavix) 75 9-13 tablet by [facility] MG tablet 00:00: mouth 1 00 (one) time each day. tamsulosin 2020-0 Yes 1{capsu QD Take 1 UT (Flomax) 9-13 le} capsule by Healt [facility] 0.4 MG 24 00:00: mouth 1 hr capsule 00 (one) time each day. traMADol 2020-0 Yes 1{tbl} Q6H Take 1 UT (Ultram) 50 9-13 tablet by [facility] MG tablet 00:00: mouth 00 every 6 (six) hours. carvedilol 2020-0 Yes 1{tbl} Q12H Take 1 UT (Coreg) 9-13 tablet by Health 6.25 MG 00:00: mouth tablet 00 every 12 (twelve) hours. clopidogrel 2020-0 Yes 1{tbl} QD Take 1 UT (Plavix) 75 9-13 tablet by [facility] MG tablet 00:00: mouth 1 00 (one) time each day. tamsulosin 2020-0 Yes 1{capsu QD Take 1 UT (Flomax) 9-13 le} capsule by Healt [facility] 0.4 MG 24 00:00: mouth 1 hr capsule 00 (one) time each day. traMADol 2020-0 Yes 1{tbl} Q6H Take 1 UT (Ultram) 50 9-13 tablet by [facility] MG tablet 00:00: mouth 00 every 6 (six) hours. carvedilol Yes 1{tbl} Q12H Take 1 UT (Coreg) 9-13 tablet by Health 6.25 MG 00:00: mouth tablet 00 every 12 (twelve) hours. clopidogrel Yes 1{tbl} QD Take 1 UT (Plavix) 75 9-13 tablet by [facility] MG tablet 00:00: mouth 1 00 (one) time each day. tamsulosin Yes 1{capsu QD Take 1 UT (Flomax) 9-13 le} capsule by Healt [facility] 0.4 MG 24 00:00: mouth 1 hr capsule 00 (one) time each day. traMADol Yes 1{tbl} Q6H Take 1 UT (Ultram) 50 9-13 tablet by [facility] MG tablet 00:00: mouth 00 every 6 (six) hours. Lasix No Notes: Memoria 9-12 (Same as: l 21:00: Lasix) May cause GI upset. Give with food or milk. Potassium No Notes: Memori a Chloride 9-12 (Same as: l 16:31: K-Dur 20) "Do Not Crush" Give with food and full glass of water For patients unable to swallow tablet, dissolve in one half glass of water. Allow about 2 minutes for the tablets to disintegra te. Stir before giving to prepare slurry and administer . Please exclude Patient s with feeding tube less than 14 Amharic (Dobhoff, J-tube etc) and pediatric and patients. Flomax No Notes: Memoria 9-12 (Same As: l 13:30: Flomax) Enochs "Do Not Crush" Eliquis No Notes: Memoria 9-12 Same as: l 02:00: Eliquis Max 00 Furosemide No Notes: Memor ia 9-11 (Same as: l 21:00: Lasix) Enochs 00 Thyroxine No Notes: Memori a 9-11 Take 1 l 11:30: hour Max 00 before or 2 hours after meal; Enteral feeds may interefere with the absorption of this medication .(Same as:Levothr oid, Synthroid) carvedilol No Notes: Memor ia 9-11 Give with l 02:00: food. (Same As: Coreg) sacubitril No Notes: Memor ia 24 MG / 9-11 (Same as: l valsartan 02:00: Entresto) Her baer 26 MG Oral 00 Avoid in Tablet patients [Entresto] with history of angioedema due to MIKE inhibitor or ARB therapy. Do not use concomitan tly or within 36 hours of MIKE inhibitors BD Normal No Notes: Memori a Saline 9-10 (Same as: l Flush 21:52: BD Posiflush) Sodium No 250 mL, Memoria Chloride - Route: l 0.9% IV 21:52: IVPB, Start date: 07/26/21 16:52:00 CDT, Duration: 30 day, Stop date: 08/25/21 16:51:00 CDT, PRN Line Flush, 0 heparin No Notes: Memoria sodium, 9-10 porcine l porcine 21:00: heparin Enochs 2500 UNT/ML 00 Injectable Solution Losartan No 25 mg, Memoria 9-10 Route: PO, l 20:27: Daily, Dosing Weight 161.534, kg, Priority: NOW, Start date: 07/26/21 15:27:00 CDT, Duration: 30 day, Stop date: 08/25/21 9:00:00 CDT Lasix No Notes: Memoria 9-10 (Same as: l 18:49: Lasix) Insulin No Notes: Memoria Lispro 9-10 (Same as: l 16:30: Humalog) Roll in palms of hands gently; Do not shake vigorously . WASTE: F/P - Black; E - Municipal Trash Bin Stable for 28 days at room temperatur e. Expires in days from ____Date carvedilol No Notes: Memor ia 9-10 Give with l 14:29: food. (Same As: Coreg) Insulin 2021-0 No 40 unit, Memori a Glargine 07-26 Route: l 14:00: SUB-Q, Daily, Dosing Weight 161.534, kg, Start date: 07/26/21 9:00:00 CDT, Duration: 30 day, Stop date: 08/24/21 9:00:00 CDT gabapentin No Notes: Memor ia 07-26 (Same as: l 14:00: Neurontin) Bisacodyl No Notes: Memori a 07-26 (Same As: l 13:57: Dulcolax, Bisco-Lax) Furosemide No Notes: Memor ia 07-26 (Same as: l 13:54: Lasix) atorvastati No Notes: Ross shannon n 07-26 (Same as: l 02:00: Lipitor) Insulin No Notes: Memoria Glargine 07-25 (Same as: l 23:15: Lantus) Do not hold insulin without contacting prescriber WASTE: F/P - Black; E - Municipal Trash Bin "single patient use only" Stable for 28 days at room temperatur e Expires in days from ____Date Dextrose No 12.5 gm, Memor ia 50% Syringe 07-25 25 mL, l (D50W) 22:43: Route: IVP, Drug Form: INJ, Dosing Weight 161.534, kg, PRN, PRN Blood Glucose Results, Start date: 07/25/21 17:43:00 CDT, Duration: 30 day, Stop date: 08/24/21 17:42:00 CDT, 0 Glucagon No 1 mg, Memoria 07-25 Route: IM, l 22:43: Drug form: PDR/INJ, PRN, Dosing Weight 161.534, kg, PRN Blood Glucose Results, Start date: 07/25/21 17:43:00 CDT, Duration: 30 day, Stop date: 08/24/21 17:42:00 CDT, 0 Insulin No Notes: Memoria Lispro 07-25 (Same as: l 22:43: Humalog) Enochs 00 Roll in palms of hands gently; Do not shake vigorously . WASTE: F/P - Black; E - Municipal Trash Bin Stable for 28 days at room temperatur e. Expires in days from ____Date Tramadol No Notes: Not Mem oria 07-25 to exceed l 21:00: 400mg/day. Max (Same As: Ultram) albumin No 250 mL, Memoria human 5% 07-25 Route: IV, l intravenous 17:32: Dosing Herm ada solution 00 Weight 161.534, kg, ONCE, Start date: 07/25/21 12:32:00 CDT, Stop date: 07/25/21 12:32:00 CDT, Indication : Non-hemorr hagic shock Reglan No Notes: Memoria 07-25 (Same as: l 17:00: Reglan) Max 00 Acetaminoph No Notes: Do M emoria en 07-25 not exceed l 15:51: 4 gm/day. Enochs (Same as: Tylenol) Zofran No Notes: Memoria 07-25 (Same as: l 15:51: Zofran) MEDICATION WASTE Product Size: 4 mg Product Wasted: ___ mg Fentanyl No 50 Memoria 07-25 microgram, l 15:48: Route: IV, Max 00 ONCE, Dosing Weight 161.534, kg, Start date: 07/25/21 10:48:00 CDT, Stop date: 07/25/21 10:48:00 CDT Ipratropium No Notes: SEE Memoria [place] 0.2 07-25 RT l MG/ML 15:06: DOCUMENTAT Riaz n Inhalant 00 ION (Same Solution as:Atroven t) Thyroxine No Notes: Memori a 07-25 (Same as: l 14:00: Synthroid) Enochs Reconstitu te with 5ml of NS. Final concentrat ion = 20 micrograms /ml. Use immediatel y after reconstitu tion and discard remaining solution. heparin No Notes: Memoria sodium, 07-25 porcine l porcine 14:00: heparin Enochs 2500 UNT/ML 00 Injectable Solution docusate No Notes: Memoria sodium 07-25 (Same as: l 14:00: Colace) Enochs 00 (Do Not Crush) Miralax No Notes: Memoria 07-25 Dissolve l 14:00: in 8 oz of Enochs 00 water or juice. (Same as: Miralax) sennosides, No Notes: Ross shannon [facility] 8.6 MG 07-25 (Same as: l Oral Tablet 14:00: Senokot) He rmann Aspirin 81 No Notes: Do Me moria MG Enteric 07-25 not crush l Coated 14:00: or chew. Enochs Tablet 00 (Same As: Ecotrin) Amiodarone No Notes: Memor ia 07-25 (Same as: l 14:00: Cordarone) Max 00 Flexeril No Notes: Memoria 07-25 (Same As: l 14:00: Flexeril) Enochs 00 Lasix No Notes: Memoria 07-25 (Same as: l 13:33: Lasix) Enochs 00 72 HR No Notes: Memoria Scopolamine 07-25 Remove old l 0.0139 13:22: patch Max MG/HR 00 before Transdermal applicatio Patch n of new patch Change patch every 72 hours (Same as: Transderm- Scop) Vasopressin No Notes: Ross shannon ([facility]URSING HOME) 07-25 (Same As: l 02:46: Pitressin, Max 00 Vasostrict ) albumin No Notes: Lot Ross shannon human 25% 07-25 #: l intravenous 02:46: Max solution 00 ___ Mfg: (Same as: Plasbumin- 25) "blood product derivative " WASTE: F/P - Red; E -Red MEDICATION WASTE Product Size: 25 gm Product Wasted: ___ gm vancomycin No 2000 mg: Me moria + Sodium 07-25 infuse l Chloride 02:00: over 2.5 Debra nn 0.9% IV 500 00 hours For mL adult patients only: Round to nearest 250 mg per Medical Staff approval MEDICATION WASTE Product Size: 1000 mg Product Wasted: ___ mg albumin No Notes: Tex human 5% 07-24 LOT#: l intravenous 23:45: Max solution 00 ___ Mfg: WASTE: F/P - Red; E -Red (Same as: Albuminar) "blood product derivative " Aspirin No Notes: Memoria 07-24 Take with l 23:22: food. Maxipime No Notes: Memoria 07-24 (Same As: l 23:00: Maxipime) MEDICATION WASTE Product Size: 1000 mg Product Wasted: ___ mg Fentanyl No 1,000 Memoria 07-24 microgram, l 22:00: 20 mL, Rate: Titrate, Start Dose: 50 microgram/ hr, Titration: 25 microgram/ hour every 15 minutes, Goal(s): RASS -1, Max Dose: 300 microgram/ hr, Route: IV, Dosing Weight 161.534 kg, Total Volume: 20, Start date: 07/24/21 17:00:00 CDT,... albumin No Notes: Tex human 25% 07-24 LOT#: l intravenous 21:39: Max solution 00 ___ Mfg: WASTE: F/P - Red; E -Red (Same as: Albuminar) "blood product derivative " albumin No Notes: Lot Ross ortega human 25% 07-24 #: l intravenous 21:30: Max solution 00 ___ Mfg: (Same as: Plasbumin- 25) "blood product derivative " WASTE: F/P - Red; E -Red MEDICATION WASTE Product Size: 25 gm Product Wasted: ___ gm DDAVP No Notes: Memoria 07-24 (Same As: l 21:00: DDAVP) MEDICATION WASTE Product Size: 4 microgram Product Wasted: ___ microgram sodium No Notes: Memoria bicarbonate 07-24 (sodium l 8.4% 21:00: bicarb 8.4% (1 mEq/ml) 50 ml syringe) Norepinephr No Notes: Ross shannon ine 07-24 Same as: l 20:30: Levophed. Administer by either central venous catheter or peripheral ly-inserte d central catheter (PICC) line. Epinephrine No Notes: Ross shannon 07-24 (Same as: l 20:30: Adrenalin) Suremed - Injectable drug used as inhalation treatment. MEDICATION WASTE Product Size: 1 mg Product Wasted: ___ mg Milrinone No Notes: Memori a 07-24 (Same l 20:30: as:Primaco r) Final conc = 0.2 mg/ml. Premix solution. Dexmedetomi No Notes: Use Memoria dine 07-24 the l 20:30: following cdm for [id number]. vecuronium No Route: IV, M emoria (ANES) 07-24 Drug form: l 20:20: INJ, ONCE, Stop date: 07/24/21 15:20:00 CDT Potassium No Notes: Memori a Chloride 07-24 (Same as: l 20:13: KCL) 10 mEq/100ml product recommende d for peripheral line administra tion. Infuse no faster than 10 mEq/hr if given peripheral ly. sodium No Notes: Memoria phosphate 07-24 Infuse l 20:13: over 4 hour. Do not infuse phosphorou s concurrent ly in the same line as TPN or IVF that contains calcium. For double lumen central lines, phosphorou s may be infused in a separate lumen from TPN. potassium No Notes: Memori a phosphate 07-24 (Same as: l 20:13: K Max 00 Phosphate. ) Do not infuse phosphorou s concurrent ly in the same line as TPN or IVF that contains calcium. For double lumen central lines, phosphorou s may be infused in a separate lumen from TPN. 1 mMol phoshate has 1.47 mEq potassium Infuse over 4 hours potassium No Notes: Memori a phosphate-s 07-24 (Same as: l odium 20:13: Phos-NaK) Max phosphate 00 Each 1.5 250 mg-280 gm pkt has mg-160 mg 250mg oral powder phosphorou for s. Mix reconstitut w/2.5oz ion water and stir. Magnesium No Notes: Memori a Sulfate 07-24 WASTE: F/P l 20:13: - Sink; E - Municipal Trash Bin Magnesium No Notes: Memori a Oxide 07-24 (Same as: l 20:13: Mag-Ox Enochs 00 400) Magnesium oxide [id number] g elemental magnesium Dose=____m g magnesium oxide (___mg elemental magnesium) Calcium No Notes: Memoria Gluconate 07-24 WASTE: F/P l 20:13: - Sink; E - Municipal Trash Bin calcium No Notes: Memoria carbonate 07-24 (Same As: l 500 mg (200 20:13: Tums) Debra nn mg 00 Calcium elemental Carbonate calcium) 500 mg = oral tablet 200 mg elemental calcium Dose = mg calcium carbonate ( mg elemental calcium) protamine No Route: IV, Me moria (ANES) 07-24 Drug form: l 19:54: INJ, ONCE, Max Stop date: 07/24/21 14:54:00 CDT potassium No Route: IV, Me moria chloride 07-24 Drug form: l (ANES) 19:28: INJ, ONCE, Debra nn Stop date: 07/24/21 14:28:00 CDT DDAVP No Notes: Memoria 07-24 (Same As: l 19:18: DDAVP) Enochs 00 MEDICATION WASTE Product Size: 4 microgram Product Wasted: ___ microgram cefepime No Route: IV, Mem oria (ANES) 07-24 Drug form: l 19:17: INJ, ONCE, Enochs Stop date: 07/24/21 14:17:00 CDT vancomycin No Route: IV, M emoria (ANES) 07-24 Drug form: l 19:17: INJ, ONCE, Max Stop date: 07/24/21 14:17:00 CDT Insulin No Notes: Memoria regular 100 07-24 (Same as: l unit + 19:14: Humulin R) Debra nn Sodium 00 Roll in Chloride palms of 0.9% hands (titrate) gently; Do 99 mL not shake vigorously . WASTE: F/P - Black; E - Municipal Trash Bin Stable for 31 days at room temperatur e Expires in days from ____Date Dextrose No 25 gm, 50 Ross shannon 50% Syringe 07-24 mL, Route: l (D50W) 19:14: IVP, Drug Riaz n Form: INJ, Dosing Weight 161.534, kg, PRN, PRN Blood Glucose Results, Start date: 07/24/21 14:14:00 CDT, Duration: 30 day, Stop date: 08/23/21 14:13:00 CDT, 0 norepinephr No Route: IV, Memoria ine (ANES) 07-24 Drug form: l 32 19:05: INJ, Start Max microgram date: 07/24/21 14:05:00 CDT, Stop date: 07/24/21 15:05:00 CDT calcium No Route: IV, Ross shannon chloride 07-24 Drug form: l (ANES) 18:51: INJ, ONCE, Debra nn 00 Stop date: 07/24/21 13:51:00 CDT protamine No Route: IV, Me moria (ANES) 10 07-24 Drug form: l mg 18:24: INJ, Start Enochs 00 date: 07/24/21 13:24:00 CDT, Stop date: 07/24/21 14:24:00 CDT EPINEPHrine No Route: IV, Memoria (ANES) 16 07-24 Drug form: l microgram 18:13: INJ, Start He rmann 00 date: 07/24/21 13:13:00 CDT, Stop date: 07/24/21 14:13:00 CDT sodium No Route: IV, Memor ia chloride 07-24 Drug form: l (ANES) 48 18:01: INJ, Start He rmann mL + 00 date: dexmedetomi 07/24/21 dine (ANES) 13:01:00 200 CDT, Stop microgram date: 07/24/21 14:01:00 CDT irrigation No Route: IV, M emoria solution 07-24 Total l (ANES) 1000 17:16: Volume: Her baer mL 00 1,000, Start date: 07/24/21 12:16:00 CDT, Stop date: 07/24/21 13:16:00 CDT Insulin No Route: IV, Ross shannon regular 07-24 Drug form: l (ANES) 16:22: INJ, ONCE, Stop date: 07/24/21 11:22:00 CDT heparin No Route: IV, Ross shannon (ANES) 07-24 Drug form: l 16:12: INJ, ONCE, Stop date: 07/24/21 11:12:00 CDT AMIODarone No Route: IV, M emoria (ANES) 50 07-24 Drug form: l mg 16:12: INJ, Start Max 00 date: 07/24/21 11:12:00 CDT, Stop date: 07/24/21 12:12:00 CDT phenylephri No Route: IV, Memoria ne (ANES) 07-24 Drug form: l 15:40: INJ, ONCE, Stop date: 07/24/21 10:40:00 CDT Amicar No Route: IV, Memor ia (ANES) 07-24 Drug form: l 15:40: INJ, ONCE, Stop date: 07/24/21 10:40:00 CDT propofol 0 No Route: IV, Mem oria (ANES) 07-24 Drug form: l 15:35: INJ, ONCE, Stop date: 07/24/21 10:35:00 CDT succinylcho No Route: IV, Memoria line (ANES) 07-24 Drug form: l 15:35: INJ, ONCE, Stop date: 07/24/21 10:35:00 CDT midazolam No Route: IV, Me moria (ANES) 07-24 Drug form: l 15:02: SOLN, ONCE, Stop date: 07/24/21 10:02:00 CDT fentaNYL No Route: IV, Mem oria (ANES) 07-24 Drug form: l 15:02: INJ, ONCE, Stop date: 07/24/21 10:02:00 CDT vecuronium No Route: IV, M emoria (ANES) 07-24 Drug form: l 15:02: INJ, ONCE, Stop date: 07/24/21 10:02:00 CDT AMIODarone No Route: IV, M emoria (ANES) 900 07-24 Drug form: l mg 14:08: INJ, Start date: 07/24/21 9:08:00 CDT, Stop date: 07/24/21 10:08:00 CDT milrinone No Route: IV, Me moria (ANES) 0.2 07-24 Drug form: l mg 13:54: INJ, Start date: 07/24/21 8:54:00 CDT, Stop date: 07/24/21 9:54:00 CDT Insulin 0 No Route: IV, Ross shannon regular 07-24 Drug form: l (ANES) 1 13:47: INJ, Start Her baer date: 07/24/21 8:47:00 CDT, Stop date: 07/24/21 9:47:00 CDT Amicar 0 No Route: IV, Memor ia (ANES) 5000 07-24 Drug form: l mg + sodium 13:26: INJ, Riaz n chloride 00 Dosing (ANES) 105 Weight mL 161.5, kg, Start date: 07/24/21 8:26:00 CDT, Stop date: 07/24/21 9:26:00 CDT AMIODarone No 2 mg/ml. Me moria 900 mg + 07-24 Use Glass l Dextrose 5% 12:49: Bottle or H ermann in Water IV 00 Non PVC 482 mL Bag "Use 0.22 micron in-line filter" MEDICATION WASTE Product Size: 900 mg Product Wasted: ___ mg Bupivacaine No Notes: Ross shannon 07-24 (Same as: l 12:39: Exparel) Enochs 00 NOT FOR IV use Postoperat hannah analgesia: Infiltrati on (local): Dose is based on surgical site and volume required to cover the area (in general, the maximum total dose is 266 mg). Bunionecto my: 7 mL into the tissues surroundin g the osteotomy and 1 mL into the subcutaneo us tissue of the surgical site (total dose = 8 mL [106 mg]) Hemorrhoid ectomy: 30 mL (20 mL vial diluted with 10 mL NS) divided and administer ed as 6 injections of 5 mL each (total dose = 30 mL [266 mg]) Interscale ne brachial plexus nerve block: Single dose: Total shoulder arthroplas ty or rotator cuff repair: 133 mg (10 mL) Isolyte S No Route: IV, Me moria PH 7.4 07-24 Total l (ANES) 1000 12:35: Volume: Her baer mL 00 1,000, Start date: 07/24/21 7:35:00 CDT, Stop date: 07/24/21 8:35:00 CDT Sodium No 250 mL, Memoria Chloride 07-23 Rate: To l 0.9% 14:47: prime line Max (titrate) 00 and flush 250 mL remaining blood products., Dosing Weight 161.534, kg, Route: IV, Total Volume: 250, Priority: Routine, Start Date: 07/23/21 9:47:00 CDT, Duration: 1 day, Stop date: 07/24/21 9:46:00 CDT, Replace Every: 24 hr, 0 empaglifloz Yes 25 mg = 1 M emoria in 25 MG 07-19 tab, PO, l Oral Tablet 15:36: QAM, 0 Herm ada [Jardiance] 00 Refill(s) 0.25 MG, Yes 0.5 mg =, Ross shannon 0.5 MG Dose 07-19 SUB-Q, l 1.5 ML 15:35: qWeek, 0 Enochs semaglutide 00 Refill(s) 1.34 MG/ML Pen Injector [Ozempic] Tresiba Yes 40 unit, Memori a 07-19 SUB-Q, l 15:34: Daily, 0 Max 00 Refill(s) empaglifloz 0 Yes 1{tbl} QD Take 1 UT in 07-16 tablet by [employer] (Posterousdiance) 14:23: mouth 1 25 MG 03 (one) time each day. empaglifloz 0 Yes 1{tbl} QD Take 1 UT in 07-16 tablet by [employer] (Posterousdiance) 14:23: mouth 1 25 MG 03 (one) time each day. empaglifloz 0 Yes 1{tbl} QD Take 1 UT in 07-16 tablet by [employer] (Jardiance) 14:23: mouth 1 25 MG 03 (one) time each day. apixaban 2020-0 Yes 5mg Q.5D Take 5 mg UT (Eliquis) 5 07-16 by mouth 2 He alth MG tablet 14:21: (two) 39 times a day. apixaban 2020-0 Yes 5mg Q.5D Take 5 mg UT (Eliquis) 5 - by mouth 2 He alth MG tablet 14:21: (two) 39 times a day. apixaban 2020-0 Yes 5mg Q.5D Take 5 mg UT (Eliquis) 5 - by mouth 2 He alth MG tablet 14:21: (two) 39 times a day. Insulin 2020-0 2021- No 20U Q.5D Inject 20 UT Regular 07-16- Units as [facility] 14:21: 00:00 directed 2 (RELION R 11 :00 (two) IJ) times a day. empaglifloz 2021-0 Yes 1{tbl} QD Take 1 UT in 8-31 tablet by [employer] (Posterousdiance) 09:23: mouth 1 25 MG 03 (one) time each day. empaglifloz 2021-0 Yes 1{tbl} QD Take 1 UT in 8-31 tablet by [employer] (Jardiance) 09:23: mouth 1 25 MG 03 (one) time each day. empaglifloz 2021-0 Yes 1{tbl} QD Take 1 UT in 8-31 tablet by [employer] (Jardiance) 09:23: mouth 1 25 MG 03 (one) time each day. empaglifloz 2021-0 Yes 1{tbl} QD Take 1 UT in 8-31 tablet by [employer] (Jardiance) 09:23: mouth 1 25 MG 03 (one) time each day. empaglifloz 2021-0 Yes 1{tbl} QD Take 1 UT in 8-31 tablet by [employer] (Jardiance) 09:23: mouth 1 25 MG 03 (one) time each day. empaglifloz 2021-0 Yes 1{tbl} QD Take 1 UT in 8-31 tablet by [employer] (Posterousdiance) 09:23: mouth 1 25 MG 03 (one) time each day. apixaban 2021-0 Yes 5mg Q.5D Take 5 mg UT (Eliquis) 5 8 by mouth 2 He alth MG tablet 09:21: (two) 39 times a day. apixaban 2021-0 Yes 5mg Q.5D Take 5 mg UT (Eliquis) 5 8 by mouth 2 He alth MG tablet 09:21: (two) 39 times a day. apixaban 2021-0 Yes 5mg Q.5D Take 5 mg UT (Eliquis) 5 8- by mouth 2 He alth MG tablet 09:21: (two) 39 times a day. apixaban 2021-0 Yes 5mg Q.5D Take 5 mg UT (Eliquis) 5 8- by mouth 2 He alth MG tablet 09:21: (two) 39 times a day. apixaban 2021-0 Yes 5mg Q.5D Take 5 mg UT (Eliquis) 5 8- by mouth 2 He alth MG tablet 09:21: (two) 39 times a day. apixaban 0 Yes 5mg Q.5D Take 5 mg UT (Eliquis) 5 8-31 by mouth 2 He alth MG tablet 09:21: (two) 39 times a day. Ozempic, Yes .5mg Inject 0.5 UT 0.25 or 0.5 8-24 mg under Heal th MG/DOSE, 2 00:00: the skin 1 MG/1.5ML 00 (one) time solution per week. pen-injecto r Ozempic, 0 Yes .5mg Inject 0.5 UT 0.25 or 0.5 8-24 mg under Heal th MG/DOSE, 2 00:00: the skin 1 MG/1.5ML 00 (one) time solution per week. pen-injecto r Ozempic, 0 Yes .5mg Inject 0.5 UT 0.25 or 0.5 8-24 mg under Heal th MG/DOSE, 2 00:00: the skin 1 MG/1.5ML 00 (one) time solution per week. pen-injecto r Ozempic, Yes .5mg Inject 0.5 UT 0.25 or 0.5 8-24 mg under Heal th MG/DOSE, 2 00:00: the skin 1 MG/1.5ML 00 (one) time solution per week. pen-injecto r Ozempic, Yes .5mg Inject 0.5 UT 0.25 or 0.5 8-24 mg under Heal th MG/DOSE, 2 00:00: the skin 1 MG/1.5ML 00 (one) time solution per week. pen-injecto r Ozempic, 0 Yes .5mg Inject 0.5 UT 0.25 or 0.5 8-24 mg under Heal th MG/DOSE, 2 00:00: the skin 1 MG/1.5ML 00 (one) time solution per week. pen-injecto r Ozempic, 0 Yes .5mg Inject 0.5 UT 0.25 or 0.5 8-24 mg under Heal th MG/DOSE, 2 00:00: the skin 1 MG/1.5ML 00 (one) time solution per week. pen-injecto r Ozempic, 0 Yes .5mg Inject 0.5 UT 0.25 or 0.5 8-24 mg under Heal th MG/DOSE, 2 00:00: the skin 1 MG/1.5ML 00 (one) time solution per week. pen-injecto r Ozempic, Yes .5mg Inject 0.5 UT 0.25 or 0.5 8-24 mg under Heal th MG/DOSE, 2 00:00: the skin 1 MG/1.5ML 00 (one) time solution per week. pen-injecto r Ozempic, Yes .5mg Inject 0.5 UT 0.25 or 0.5 8-24 mg under Heal th MG/DOSE, 2 00:00: the skin 1 MG/1.5ML 00 (one) time solution per week. pen-injecto r Ozempic, Yes .5mg Inject 0.5 UT 0.25 or 0.5 8-24 mg under Heal th MG/DOSE, 2 00:00: the skin 1 MG/1.5ML 00 (one) time solution per week. pen-injecto r Ozempic, Yes .5mg Inject 0.5 UT 0.25 or 0.5 8-24 mg under [facility] MG/DOSE, 2 00:00: the skin 1 MG/1.5ML 00 (one) time solution per week. pen-injecto r Ozempic, Yes .5mg Inject 0.5 UT 0.25 or 0.5 8-24 mg under [facility] MG/DOSE, 2 00:00: the skin 1 MG/1.5ML 00 (one) time solution per week. pen-injecto r Ozempic, Yes .5mg Inject 0.5 UT 0.25 or 0.5 8-24 mg under [facility] MG/DOSE, 2 00:00: the skin 1 MG/1.5ML 00 (one) time solution per week. pen-injecto r Ozempic, Yes .5mg Inject 0.5 UT 0.25 or 0.5 8-24 mg under [facility] MG/DOSE, 2 00:00: the skin 1 MG/1.5ML 00 (one) time solution per week. pen-injecto r Ozempic, Yes .5mg Inject 0.5 UT 0.25 or 0.5 8-24 mg under [facility] MG/DOSE, 2 00:00: the skin 1 MG/1.5ML 00 (one) time solution per week. pen-injecto r Ozempic, 0 Yes .5mg Inject 0.5 UT 0.25 or 0.5 8-24 mg under [facility] MG/DOSE, 2 00:00: the skin 1 MG/1.5ML 00 (one) time solution per week. pen-injecto r Ozempic, Yes .5mg Inject 0.5 UT 0.25 or 0.5 8-24 mg under [facility] MG/DOSE, 2 00:00: the skin 1 MG/1.5ML 00 (one) time solution per week. pen-injecto r Ozempic, Yes .5mg Inject 0.5 UT 0.25 or 0.5 8-24 mg under [facility] MG/DOSE, 2 00:00: the skin 1 MG/1.5ML 00 (one) time solution per week. pen-injecto r Ozempic, Yes .5mg Inject 0.5 UT 0.25 or 0.5 8-24 mg under [facility] MG/DOSE, 2 00:00: the skin 1 MG/1.5ML 00 (one) time solution per week. pen-injecto r Ozempic, Yes .5mg Inject 0.5 UT 0.25 or 0.5 8-24 mg under Heal [facility] MG/DOSE, 2 00:00: the skin 1 MG/1.5ML 00 (one) time solution per week. pen-injecto r Ozempic, 0 Yes .5mg Inject 0.5 UT 0.25 or 0.5 8-24 mg under [facility] MG/DOSE, 2 00:00: the skin 1 MG/1.5ML 00 (one) time solution per week. pen-injecto r Ozempic, 0 Yes .5mg Inject 0.5 UT 0.25 or 0.5 8-24 mg under [facility] MG/DOSE, 2 00:00: the skin 1 MG/1.5ML 00 (one) time solution per week. pen-injecto r semaglutide 0 Yes .5mg 0.5 mg. [facility] (Ozempic, 06-18 Health 0.25 or 0.5 00:00: MG/DOSE,) 2 00 MG/1.5ML solution pen-injecto r insulin 2021-0 Yes 38U QD Inject 38 UT degludec 8-03 Units Health ([place] 00:00: under the FlexTouch) 00 skin 1 200 UNIT/ML (one) time injection each day. semaglutide 2021-0 Yes .5mg 0.5 mg. UT (Ozempic, 06-18 Health 0.25 or 0.5 00:00: MG/DOSE,) 2 00 MG/1.5ML solution pen-injecto r insulin 2021-0 Yes 38U QD Inject 38 UT degludec 8-03 Units Health ([place] 00:00: under the FlexTouch) 00 skin 1 200 UNIT/ML (one) time injection each day. semaglutide 2021-0 Yes .5mg 0.5 mg. UT (Ozempic, 06-18 Health 0.25 or 0.5 00:00: MG/DOSE,) 2 00 MG/1.5ML solution pen-injecto r insulin 2021-0 Yes 38U QD Inject 38 UT degludec 8-03 Units Health ([place] 00:00: under the FlexTouch) 00 skin 1 200 UNIT/ML (one) time injection each day. semaglutide 2021-0 Yes .5mg 0.5 mg. UT (Ozempic, 06-18 Health 0.25 or 0.5 00:00: MG/DOSE,) 2 00 MG/1.5ML solution pen-injecto r insulin 2021-0 Yes 38U QD Inject 38 UT degludec 8-03 Units [facility] ([place] 00:00: under the FlexTouch) 00 skin 1 200 UNIT/ML (one) time injection each day. semaglutide 2021-0 Yes .5mg 0.5 mg. UT (Ozempic, 06-18 Health 0.25 or 0.5 00:00: MG/DOSE,) 2 00 MG/1.5ML solution pen-injecto r insulin 2021-0 Yes 38U QD Inject 38 UT degludec 8-03 Units [facility] ([place] 00:00: under the FlexTouch) 00 skin 1 200 UNIT/ML (one) time injection each day. semaglutide 2021-0 Yes .5mg 0.5 mg. UT (Ozempic, 06-18 Health 0.25 or 0.5 00:00: MG/DOSE,) 2 00 MG/1.5ML solution pen-injecto r insulin 2021-0 Yes 38U QD Inject 38 UT degludec 8-03 Units [facility] ([place] 00:00: under the FlexTouch) 00 skin 1 200 UNIT/ML (one) time injection each day. semaglutide 2021-0 Yes .5mg 0.5 mg. UT (Ozempic, 06-18 Health 0.25 or 0.5 00:00: MG/DOSE,) 2 00 MG/1.5ML solution pen-injecto r insulin 2021-0 Yes 38U QD Inject 38 UT degludec 8-03 Units [facility] ([place] 00:00: under the FlexTouch) 00 skin 1 200 UNIT/ML (one) time injection each day. semaglutide 2021-0 Yes .5mg 0.5 mg. UT (Ozempic, 06-18 Health 0.25 or 0.5 00:00: MG/DOSE,) 2 00 MG/1.5ML solution pen-injecto r insulin 2021-0 Yes 38U QD Inject 38 UT degludec 8-03 Units [facility] ([place] 00:00: under the FlexTouch) 00 skin 1 200 UNIT/ML (one) time injection each day. semaglutide 2021-0 Yes .5mg 0.5 mg. UT (Ozempic, 06-18 Health 0.25 or 0.5 00:00: MG/DOSE,) 2 00 MG/1.5ML solution pen-injecto r insulin 2021-0 Yes 38U QD Inject 38 UT degludec 8-03 Units [facility] ([place] 00:00: under the FlexTouch) 00 skin 1 200 UNIT/ML (one) time injection each day. semaglutide 2021-0 Yes .5mg 0.5 mg. UT (Ozempic, 8 Health 0.25 or 0.5 00:00: MG/DOSE,) 2 00 MG/1.5ML solution pen-injecto r insulin 2021-0 Yes 38U QD Inject 38 UT degludec 8-03 Units [facility] ([place] 00:00: under the FlexTouch) 00 skin 1 200 UNIT/ML (one) time injection each day. semaglutide 2021-0 Yes .5mg 0.5 mg. UT (Ozempic, 8 Health 0.25 or 0.5 00:00: MG/DOSE,) 2 00 MG/1.5ML solution pen-injecto r insulin 2021-0 Yes 38U QD Inject 38 UT degludec 8-03 Units [facility] ([place] 00:00: under the FlexTouch) 00 skin 1 200 UNIT/ML (one) time injection each day. semaglutide 2021-0 Yes .5mg 0.5 mg. UT (Ozempic, 8 Health 0.25 or 0.5 00:00: MG/DOSE,) 2 00 MG/1.5ML solution pen-injecto r insulin 2021-0 Yes 38U QD Inject 38 UT degludec 8-03 Units [facility] ([place] 00:00: under the FlexTouch) 00 skin 1 200 UNIT/ML (one) time injection each day. semaglutide 2021-0 Yes .5mg 0.5 mg. UT (Ozempic, 8 Health 0.25 or 0.5 00:00: MG/DOSE,) 2 00 MG/1.5ML solution pen-injecto r insulin 2021-0 Yes 38U QD Inject 38 UT degludec 8-03 Units [facility] ([place] 00:00: under the FlexTouch) 00 skin 1 200 UNIT/ML (one) time injection each day. semaglutide 2021-0 Yes .5mg 0.5 mg. UT (Ozempic, 803 Health 0.25 or 0.5 00:00: MG/DOSE,) 2 00 MG/1.5ML solution pen-injecto r insulin 2021-0 Yes 38U QD Inject 38 UT degludec 8-03 Units [facility] ([place] 00:00: under the FlexTouch) 00 skin 1 200 UNIT/ML (one) time injection each day. semaglutide 2021-0 Yes .5mg 0.5 mg. UT (Ozempic, 06-18 Health 0.25 or 0.5 00:00: MG/DOSE,) 2 00 MG/1.5ML solution pen-injecto r insulin 2021-0 Yes 38U QD Inject 38 UT degludec 8-03 Units [facility] ([place] 00:00: under the FlexTouch) 00 skin 1 200 UNIT/ML (one) time injection each day. semaglutide 2021-0 Yes .5mg 0.5 mg. UT (Ozempic, 06-18 Health 0.25 or 0.5 00:00: MG/DOSE,) 2 00 MG/1.5ML solution pen-injecto r insulin 2021-0 Yes 38U QD Inject 38 UT degludec 8-03 Units [facility] ([place] 00:00: under the FlexTouch) 00 skin 1 200 UNIT/ML (one) time injection each day. semaglutide 2021-0 Yes .5mg 0.5 mg. UT (Ozempic, 06-18 Health 0.25 or 0.5 00:00: MG/DOSE,) 2 00 MG/1.5ML solution pen-injecto r insulin 2021-0 Yes 38U QD Inject 38 UT degludec 8-03 Units [facility] ([place] 00:00: under the FlexTouch) 00 skin 1 200 UNIT/ML (one) time injection each day. semaglutide 2021-0 Yes .5mg 0.5 mg. UT (Ozempic, 06-18 Health 0.25 or 0.5 00:00: MG/DOSE,) 2 00 MG/1.5ML solution pen-injecto r insulin 2021-0 Yes 38U QD Inject 38 UT degludec 8-03 Units [facility] ([place] 00:00: under the FlexTouch) 00 skin 1 200 UNIT/ML (one) time injection each day. semaglutide 2021-0 Yes .5mg 0.5 mg. UT (Ozempic, 06-18 Health 0.25 or 0.5 00:00: MG/DOSE,) 2 00 MG/1.5ML solution pen-injecto r insulin 2021-0 Yes 38U QD Inject 38 UT degludec 8-03 Units [facility] ([place] 00:00: under the FlexTouch) 00 skin 1 200 UNIT/ML (one) time injection each day. semaglutide 2021-0 Yes .5mg 0.5 mg. UT (Ozempic, 8 Health 0.25 or 0.5 00:00: MG/DOSE,) 2 00 MG/1.5ML solution pen-injecto r insulin 2021-0 Yes 38U QD Inject 38 UT degludec 8-03 Units Health ([place] 00:00: under the FlexTouch) 00 skin 1 200 UNIT/ML (one) time injection each day. semaglutide 2021-0 Yes .5mg 0.5 mg. UT (Ozempic, 06-18 Health 0.25 or 0.5 00:00: MG/DOSE,) 2 00 MG/1.5ML solution pen-injecto r insulin 2021-0 Yes 38U QD Inject 38 UT degludec 8-03 Units Health ([place] 00:00: under the FlexTouch) 00 skin 1 200 UNIT/ML (one) time injection each day. semaglutide 2021-0 Yes .5mg 0.5 mg. UT (Ozempic, 06-18 Health 0.25 or 0.5 00:00: MG/DOSE,) 2 00 MG/1.5ML solution pen-injecto r insulin 2021-0 Yes 38U QD Inject 38 UT degludec 8-03 Units Health ([place] 00:00: under the FlexTouch) 00 skin 1 200 UNIT/ML (one) time injection each day. semaglutide 2021-0 Yes .5mg 0.5 mg. UT (Ozempic, 06-18 Health 0.25 or 0.5 00:00: MG/DOSE,) 2 00 MG/1.5ML solution pen-injecto r insulin 2021-0 Yes 38U QD Inject 38 UT degludec 8-03 Units Health ([place] 00:00: under the FlexTouch) 00 skin 1 200 UNIT/ML (one) time injection each day. apixaban 2021-0 Yes 5mg Q.5D Take 5 mg UT (Eliquis) 5 7-27 by mouth 2 He alth MG tablet 14:25: (two) 25 times a day. insulin 2020-0 Yes Inject UT N[facility]-insulin 7-27 under the [facility] regular 14:25: skin 2 (NovoLIN) 25 (two) (70-30) 100 times a UNIT/ML day before injection meals. Insulin 2020-0 Yes 20U Q.5D Inject 20 UT Regular 7-27 Units as [facility] 14:25: directed 2 (RELION R 25 (two) IJ) times a day. apixaban 1-0 Yes 5mg Q.5D Take 5 mg UT (Eliquis) 5 7-27 by mouth 2 He alth MG tablet 14:25: (two) 25 times a day. insulin 2020-0 Yes Inject UT NPH-insulin 7-27 under the [facility] regular 14:25: skin 2 (NovoLIN) 25 (two) (70-30) 100 times a UNIT/ML day before injection meals. Insulin 2020-0 Yes 20U Q.5D Inject 20 UT Regular 7-27 Units as [facility] 14:25: directed 2 (RELION R 25 (two) IJ) times a day. apixaban 2020-0 Yes 5mg Q.5D Take 5 mg UT (Eliquis) 5 7-27 by mouth 2 He alth MG tablet 14:25: (two) 25 times a day. insulin 2020-0 Yes Inject UT NPH-insulin 7-27 under the [facility] regular 14:25: skin 2 (NovoLIN) 25 (two) (70-30) 100 times a UNIT/ML day before injection meals. Insulin 2020-0 Yes 20U Q.5D Inject 20 UT Regular 7-27 Units as [facility] 14:25: directed 2 (RELION R 25 (two) IJ) times a day. apixaban 2020-0 Yes 5mg Q.5D Take 5 mg UT (Eliquis) 5 7-27 by mouth 2 He alth MG tablet 14:25: (two) 25 times a day. insulin 2020-0 Yes Inject UT NPH-insulin 7-27 under the [facility] regular 14:25: skin 2 (NovoLIN) 25 (two) (70-30) 100 times a UNIT/ML day before injection meals. Insulin 2020-0 Yes 20U Q.5D Inject 20 UT Regular 7-27 Units as [facility] 14:25: directed 2 (RELION R 25 (two) IJ) times a day. insulin 2020-0 Yes Inject UT NPH-insulin 7-27 under the [facility] regular 14:25: skin 2 (NovoLIN) 25 (two) (70-30) 100 times a UNIT/ML day before injection meals. insulin 2020-0 Yes Inject UT NPH-insulin 7-27 under the [facility] regular 14:25: skin 2 (NovoLIN) 25 (two) (70-30) 100 times a UNIT/ML day before injection meals. insulin 0 Yes Inject UT NPH-insulin 7-27 under the [facility] regular 14:25: skin 2 (NovoLIN) 25 (two) (70-30) 100 times a UNIT/ML day before injection meals. Insulin NPH 2020- No Inject UT Isophane & 7-27 07-27 under the [facility] Regular 14:21: 00:00 skin. (NOVOLIN 45 :00 70/30 SC) insulin 2020-0 Yes Inject UT NPH-insulin 7-27 under the [facility] regular 09:25: skin 2 (NovoLIN) 25 (two) (70-30) 100 times a UNIT/ML day before injection meals. insulin 0 Yes Inject UT NPH-insulin 7-27 under the [facility] regular 09:25: skin 2 (NovoLIN) 25 (two) (70-30) 100 times a UNIT/ML day before injection meals. insulin 2020-0 Yes Inject UT NPH-insulin 7-27 under the [facility] regular 09:25: skin 2 (NovoLIN) 25 (two) (70-30) 100 times a UNIT/ML day before injection meals. insulin 2020-0 Yes Inject UT NPH-insulin 7-27 under the [facility] regular 09:25: skin 2 (NovoLIN) 25 (two) (70-30) 100 times a UNIT/ML day before injection meals. insulin 2020-0 Yes Inject UT NPH-insulin 7-27 under the [facility] regular 09:25: skin 2 (NovoLIN) 25 (two) (70-30) 100 times a UNIT/ML day before injection meals. insulin 2020-0 Yes Inject UT NPH-insulin 7-27 under the [facility] regular 09:25: skin 2 (NovoLIN) 25 (two) (70-30) 100 times a UNIT/ML day before injection meals. insulin 2020-0 Yes Inject UT NPH-insulin 7-27 under the [facility] regular 09:25: skin 2 (NovoLIN) 25 (two) (70-30) 100 times a UNIT/ML day before injection meals. insulin 2020-0 Yes Inject UT NPH-insulin 7-27 under the [facility] regular 09:25: skin 2 (NovoLIN) 25 (two) (70-30) 100 times a UNIT/ML day before injection meals. insulin 2020-0 Yes Inject UT NPH-insulin 7-27 under the [facility] regular 09:25: skin 2 (NovoLIN) 25 (two) (70-30) 100 times a UNIT/ML day before injection meals. insulin 2020-0 Yes Inject UT NPH-insulin 7-27 under the [facility] regular 09:25: skin 2 (NovoLIN) 25 (two) (70-30) 100 times a UNIT/ML day before injection meals. insulin 2020-0 Yes Inject UT NPH-insulin 7-27 under the [facility] regular 09:25: skin 2 (NovoLIN) 25 (two) (70-30) 100 times a UNIT/ML day before injection meals. insulin 2020-0 Yes Inject UT NPH-insulin 7-27 under the [facility] regular 09:25: skin 2 (NovoLIN) 25 (two) (70-30) 100 times a UNIT/ML day before injection meals. insulin 2020-0 Yes Inject UT NPH-insulin 7-27 under the [facility] regular 09:25: skin 2 (NovoLIN) 25 (two) (70-30) 100 times a UNIT/ML day before injection meals. insulin 2020-0 Yes Inject UT NPH-insulin 7-27 under the [facility] regular 09:25: skin 2 (NovoLIN) 25 (two) (70-30) 100 times a UNIT/ML day before injection meals. insulin 2020-0 Yes Inject UT NPH-insulin 7-27 under the [facility] regular 09:25: skin 2 (NovoLIN) 25 (two) (70-30) 100 times a UNIT/ML day before injection meals. insulin 2020-0 Yes Inject UT NPH-insulin 7-27 under the [facility] regular 09:25: skin 2 (NovoLIN) 25 (two) (70-30) 100 times a UNIT/ML day before injection meals. insulin 2020-0 Yes Inject UT NPH-insulin 7-27 under the [facility] regular 09:25: skin 2 (NovoLIN) 25 (two) (70-30) 100 times a UNIT/ML day before injection meals. insulin 2020-0 Yes Inject UT NPH-insulin 7-27 under the [facility] regular 09:25: skin 2 (NovoLIN) 25 (two) (70-30) 100 times a UNIT/ML day before injection meals. insulin 2020-0 Yes Inject UT NPH-insulin 7-27 under the [facility] regular 09:25: skin 2 (NovoLIN) 25 (two) (70-30) 100 times a UNIT/ML day before injection meals. insulin 2020- Yes Inject UT NPH-insulin 7-27 under the [facility] regular 09:25: skin 2 (NovoLIN) 25 (two) (70-30) 100 times a UNIT/ML day before injection meals. insulin 2020- Yes Inject UT NPH-insulin 7-27 under the [facility] regular 09:25: skin 2 (NovoLIN) 25 (two) (70-30) 100 times a UNIT/ML day before injection meals. insulin 2020- Yes Inject UT NPH-insulin 7-27 under the [facility] regular 09:25: skin 2 (NovoLIN) 25 (two) (70-30) 100 times a UNIT/ML day before injection meals. insulin 2020- Yes Inject UT NPH-insulin 7-27 under the [facility] regular 09:25: skin 2 (NovoLIN) 25 (two) (70-30) 100 times a UNIT/ML day before injection meals. insulin 2020- Yes Inject UT NPH-insulin 7-27 under the [facility] regular 09:25: skin 2 (NovoLIN) 25 (two) (70-30) 100 times a UNIT/ML day before injection meals. Sodium 2020-0 No 750 mL, Memoria Chloride 06-05 Rate: 75 l 0.9% IV 750 17:42: ml/hr, Herm ada mL 00 Infuse over: 10 hr, Route: IV, Dosing Weight 166.273 kg, Total Volume: 750, Start date: 06/05/21 12:42:00 CDT, Duration: 10 hr, Stop date: 06/05/21 22:41:00 CDT, BSA: 3.02 m2, 0 NovoLIN Yes 50 unit, Memori a 70/30 7-21 SUB-Q, l 15:45: BID, 0 Enochs 00 Refill(s) Rhiannon No See Memoria 06-05 Instructio l 15:44: ns, PO, 0 Enochs 00 Refill(s) insulin Yes Inject [facility] NPH-insulin 7-20 under the [facility] regular 18:30: skin 2 (NovoLIN) 53 (two) (70-30) 100 times a UNIT/ML day before injection meals. Insulin NPH Yes Inject UT Isophane & 7-20 under the [facility] Regular 18:30: skin. (NOVOLIN 53 70/30 SC) apixaban Yes 5mg Q.5D Take 5 mg UT (Eliquis) 5 7-20 by mouth 2 He alth MG tablet 18:29: (two) 13 times a day. apixaban Yes 5mg Q.5D Take 5 mg UT (Eliquis) 5 7-08 by mouth 2 He alth MG tablet 16:36: (two) 01 times a day. atorvastati Yes 40mg Take 40 mg UT n (Lipitor) 6-13 by mouth Heal th 40 MG 00:00: every tablet 00 night. furosemide Yes 1{tbl} Q.5D Take 1 UT (Lasix) 80 6-13 tablet by Heal [facility] MG tablet 00:00: mouth 2 00 (two) times a day. losartan Yes .5{tbl} QD Take 0.5 UT (Cozaar) 25 6-13 tablets by He alth MG tablet 00:00: mouth 1 00 (one) time each day. atorvastati Yes 40mg Take 40 mg UT n (Lipitor) 6-13 by mouth Heal th 40 MG 00:00: every tablet 00 night. furosemide Yes 1{tbl} Q.5D Take 1 UT (Lasix) 40 6-13 tablet by Heal th MG tablet 00:00: mouth 2 00 (two) times a day. losartan Yes .5{tbl} QD Take 0.5 UT (Cozaar) 25 6-13 tablets by He alth MG tablet 00:00: mouth 1 00 (one) time each day. atorvastati 2020-0 Yes 40mg Take 40 mg UT n (Lipitor) 6-13 by mouth Heal th 40 MG 00:00: every tablet 00 night. furosemide 2020-0 Yes 1{tbl} Q.5D Take 1 UT (Lasix) 80 6-13 tablet by Heal th MG tablet 00:00: mouth 2 00 (two) times a day. losartan 2020-0 Yes .5{tbl} QD Take 0.5 UT (Cozaar) 25 6-13 tablets by He alth MG tablet 00:00: mouth 1 00 (one) time each day. atorvastati 2020-0 Yes 40mg Take 40 mg UT n (Lipitor) 6-13 by mouth Heal th 40 MG 00:00: every tablet 00 night. furosemide 2020-0 Yes 1{tbl} Q.5D Take 1 UT (Lasix) 80 6-13 tablet by Heal th MG tablet 00:00: mouth 2 00 (two) times a day. losartan 2020-0 Yes .5{tbl} QD Take 0.5 UT (Cozaar) 25 6-13 tablets by He alth MG tablet 00:00: mouth 1 00 (one) time each day. atorvastati 2020-0 Yes 40mg Take 40 mg UT n (Lipitor) 6-13 by mouth Heal th 40 MG 00:00: every tablet 00 night. furosemide 2020-0 Yes 1{tbl} Q.5D Take 1 UT (Lasix) 80 6-13 tablet by Heal th MG tablet 00:00: mouth 2 00 (two) times a day. losartan 2020-0 Yes .5{tbl} QD Take 0.5 UT (Cozaar) 25 6-13 tablets by He alth MG tablet 00:00: mouth 1 00 (one) time each day. atorvastati 2020-0 Yes 40mg Take 40 mg UT n (Lipitor) 6-13 by mouth Heal th 40 MG 00:00: every tablet 00 night. furosemide 2020-0 Yes 1{tbl} Q.5D Take 1 UT (Lasix) 80 6-13 tablet by Heal th MG tablet 00:00: mouth 2 00 (two) times a day. losartan 2021-0 Yes .5{tbl} QD Take 0.5 UT (Cozaar) 25 6-13 tablets by He alth MG tablet 00:00: mouth 1 00 (one) time each day. atorvastati 2020-0 Yes 40mg Take 40 mg UT n (Lipitor) 6-13 by mouth Heal th 40 MG 00:00: every tablet 00 night. furosemide 2020-0 Yes 1{tbl} Q.5D Take 1 UT (Lasix) 80 6-13 tablet by Heal th MG tablet 00:00: mouth 2 00 (two) times a day. losartan 2020-0 Yes .5{tbl} QD Take 0.5 UT (Cozaar) 25 6-13 tablets by He alth MG tablet 00:00: mouth 1 00 (one) time each day. atorvastati 0 Yes 40mg Take 40 mg UT n (Lipitor) 6-13 by mouth Heal th 40 MG 00:00: every tablet 00 night. furosemide 2020-0 Yes 1{tbl} Q.5D Take 1 UT (Lasix) 80 6-13 tablet by Heal th MG tablet 00:00: mouth 2 00 (two) times a day. losartan 2020-0 Yes .5{tbl} QD Take 0.5 UT (Cozaar) 25 6-13 tablets by He alth MG tablet 00:00: mouth 1 00 (one) time each day. atorvastati 0 Yes 40mg Take 40 mg UT n (Lipitor) 6-13 by mouth Heal th 40 MG 00:00: every tablet 00 night. furosemide 2020-0 Yes 1{tbl} Q.5D Take 1 UT (Lasix) 80 6-13 tablet by Heal th MG tablet 00:00: mouth 2 00 (two) times a day. losartan 2020-0 Yes .5{tbl} QD Take 0.5 UT (Cozaar) 25 6-13 tablets by He alth MG tablet 00:00: mouth 1 00 (one) time each day. atorvastati 0 Yes 40mg Take 40 mg UT n (Lipitor) 6-13 by mouth Heal th 40 MG 00:00: every tablet 00 night. furosemide 2020-0 Yes 1{tbl} Q.5D Take 1 UT (Lasix) 80 6-13 tablet by Heal th MG tablet 00:00: mouth 2 00 (two) times a day. losartan 2020-0 Yes .5{tbl} QD Take 0.5 UT (Cozaar) 25 6-13 tablets by He alth MG tablet 00:00: mouth 1 00 (one) time each day. atorvastati 2020-0 Yes 40mg Take 40 mg UT n (Lipitor) 6-13 by mouth Heal th 40 MG 00:00: every tablet 00 night. furosemide 2020-0 Yes 1{tbl} Q.5D Take 1 UT (Lasix) 80 6-13 tablet by Heal [facility] MG tablet 00:00: mouth 2 00 (two) times a day. losartan 2020-0 Yes .5{tbl} QD Take 0.5 UT (Cozaar) 25 6-13 tablets by He alth MG tablet 00:00: mouth 1 00 (one) time each day. atorvastati 2020-0 Yes 40mg Take 40 mg UT n (Lipitor) 6-13 by mouth Heal th 40 MG 00:00: every tablet 00 night. furosemide 2020-0 Yes 1{tbl} Q.5D Take 1 UT (Lasix) 80 6-13 tablet by Heal [facility] MG tablet 00:00: mouth 2 00 (two) times a day. losartan 2020-0 Yes .5{tbl} QD Take 0.5 UT (Cozaar) 25 6-13 tablets by He alth MG tablet 00:00: mouth 1 00 (one) time each day. atorvastati 2020-0 Yes 40mg Take 40 mg UT n (Lipitor) 6-13 by mouth Heal th 40 MG 00:00: every tablet 00 night. furosemide 2020-0 Yes 1{tbl} Q.5D Take 1 UT (Lasix) 80 6-13 tablet by Heal [facility] MG tablet 00:00: mouth 2 00 (two) times a day. losartan 2020-0 Yes .5{tbl} QD Take 0.5 UT (Cozaar) 25 6-13 tablets by He alth MG tablet 00:00: mouth 1 00 (one) time each day. atorvastati 2020-0 Yes 40mg Take 40 mg UT n (Lipitor) 6-13 by mouth Heal th 40 MG 00:00: every tablet 00 night. furosemide 2020-0 Yes 1{tbl} Q.5D Take 1 UT (Lasix) 80 6-13 tablet by Heal [facility] MG tablet 00:00: mouth 2 00 (two) times a day. losartan 2020-0 Yes .5{tbl} QD Take 0.5 UT (Cozaar) 25 6-13 tablets by He alth MG tablet 00:00: mouth 1 00 (one) time each day. atorvastati 2020-0 Yes 40mg Take 40 mg UT n (Lipitor) 6-13 by mouth Heal th 40 MG 00:00: every tablet 00 night. furosemide 2020-0 Yes 1{tbl} Q.5D Take 1 UT (Lasix) 80 6-13 tablet by Heal th MG tablet 00:00: mouth 2 00 (two) times a day. losartan 2020-0 Yes .5{tbl} QD Take 0.5 UT (Cozaar) 25 6-13 tablets by He alth MG tablet 00:00: mouth 1 00 (one) time each day. atorvastati 2020-0 Yes 40mg Take 40 mg UT n (Lipitor) 6-13 by mouth Heal th 40 MG 00:00: every tablet 00 night. furosemide 2020-0 Yes 1{tbl} Q.5D Take 1 UT (Lasix) 40 6-13 tablet by Heal th MG tablet 00:00: mouth 2 00 (two) times a day. losartan 2020-0 Yes .5{tbl} QD Take 0.5 UT (Cozaar) 25 6-13 tablets by He alth MG tablet 00:00: mouth 1 00 (one) time each day. atorvastati 2020-0 Yes 40mg Take 40 mg UT n (Lipitor) 6-13 by mouth Heal th 40 MG 00:00: every tablet 00 night. furosemide 2020-0 Yes 1{tbl} Q.5D Take 1 UT (Lasix) 40 6-13 tablet by Heal th MG tablet 00:00: mouth 2 00 (two) times a day. losartan 2020-0 Yes .5{tbl} QD Take 0.5 UT (Cozaar) 25 6-13 tablets by He alth MG tablet 00:00: mouth 1 00 (one) time each day. atorvastati 2020-0 Yes 40mg Take 40 mg UT n (Lipitor) 6-13 by mouth Heal th 40 MG 00:00: every tablet 00 night. furosemide 2020-0 Yes 1{tbl} Q.5D Take 1 UT (Lasix) 40 6-13 tablet by Heal th MG tablet 00:00: mouth 2 00 (two) times a day. losartan 0 Yes .5{tbl} QD Take 0.5 UT (Cozaar) 25 6-13 tablets by He alth MG tablet 00:00: mouth 1 00 (one) time each day. atorvastati 0 Yes 40mg Take 40 mg UT n (Lipitor) 6-13 by mouth Heal th 40 MG 00:00: every tablet 00 night. furosemide Yes 1{tbl} Q.5D Take 1 UT (Lasix) 40 6-13 tablet by Heal th MG tablet 00:00: mouth 2 00 (two) times a day. losartan 0 Yes .5{tbl} QD Take 0.5 UT (Cozaar) 25 6-13 tablets by He alth MG tablet 00:00: mouth 1 00 (one) time each day. atorvastati 0 Yes 40mg Take 40 mg UT n (Lipitor) 6-13 by mouth Heal th 40 MG 00:00: every tablet 00 night. furosemide Yes 1{tbl} Q.5D Take 1 UT (Lasix) 40 6-13 tablet by Heal th MG tablet 00:00: mouth 2 00 (two) times a day. losartan Yes .5{tbl} QD Take 0.5 UT (Cozaar) 25 6-13 tablets by He alth MG tablet 00:00: mouth 1 00 (one) time each day. atorvastati 0 Yes 40mg Take 40 mg UT n (Lipitor) 6-13 by mouth Heal th 40 MG 00:00: every tablet 00 night. furosemide 2020-0 Yes 1{tbl} Q.5D Take 1 UT (Lasix) 40 6-13 tablet by Heal th MG tablet 00:00: mouth 2 00 (two) times a day. losartan 0 Yes .5{tbl} QD Take 0.5 UT (Cozaar) 25 6-13 tablets by He alth MG tablet 00:00: mouth 1 00 (one) time each day. atorvastati 2020-0 Yes 40mg Take 40 mg UT n (Lipitor) 6-13 by mouth Heal th 40 MG 00:00: every tablet 00 night. furosemide 2020-0 Yes 1{tbl} Q.5D Take 1 UT (Lasix) 40 6-13 tablet by Heal th MG tablet 00:00: mouth 2 00 (two) times a day. losartan 2020-0 Yes .5{tbl} QD Take 0.5 UT (Cozaar) 25 6-13 tablets by He alth MG tablet 00:00: mouth 1 00 (one) time each day. atorvastati 2020-0 Yes 40mg Take 40 mg UT n (Lipitor) 6-13 by mouth [facility] 40 MG 00:00: every tablet 00 night. furosemide 2020-0 Yes 1{tbl} Q.5D Take 1 [facility] (Lasix) 40 6-13 tablet by [facility] MG tablet 00:00: mouth 2 00 (two) times a day. losartan 2020-0 Yes .5{tbl} QD Take 0.5 [facility] (Cozaar) 25 6-13 tablets by alth MG tablet 00:00: mouth 1 00 (one) time each day. atorvastati 2020-0 Yes 40mg Take 40 mg UT n (Lipitor) 6-13 by [facility] 40 MG 00:00: every tablet 00 night. furosemide 2020-0 Yes 1{tbl} Q.5D Take 1 [facility] (Lasix) 40 6-13 tablet by [facility] tablet 00:00: mouth 2 00 (two) times a day. losartan 2020-0 Yes .5{tbl} QD Take 0.5 [facility] (Cozaar) 25 6-13 tablets by alth MG tablet 00:00: mouth 1 00 (one) time each day. atorvastati 2020-0 Yes 40mg Take 40 mg [facility] (Lipitor) 6-13 by [facility] 40 MG 00:00: every tablet 00 night. furosemide 2020-0 Yes 1{tbl} Q.5D Take 1 [facility] (Lasix) 40 6-13 tablet by [facility] tablet 00:00: mouth 2 00 (two) times a day. losartan 2020-0 Yes .5{tbl} QD Take 0.5 [facility] (Cozaar) 25 6-13 tablets by [facility] MG tablet 00:00: mouth 1 00 (one) time each day. atorvastati 2020-0 Yes 40mg Take 40 mg [facility] (Lipitor) 6-13 by [facility] 40 MG 00:00: every tablet 00 night. furosemide 2020-0 Yes 1{tbl} Q.5D Take 1 [facility] (Lasix) 40 6-13 tablet by [facility] tablet 00:00: mouth 2 00 (two) times a day. losartan 2020-0 Yes .5{tbl} QD Take 0.5 [facility] (Cozaar) 25 6-13 tablets by [facility] MG tablet 00:00: mouth 1 00 (one) time each day. atorvastati 2020-0 Yes 40mg Take 40 mg [facility] (Lipitor) 6-13 by [facility] 40 MG 00:00: every tablet 00 night. furosemide 2020-0 Yes 1{tbl} Q.5D Take 1 [facility] (Lasix) 40 6-13 tablet by [facility] tablet 00:00: mouth 2 00 (two) times a day. losartan 2020-0 Yes .5{tbl} QD Take 0.5 [facility] (Cozaar) 25 6-13 tablets by [facility] MG tablet 00:00: mouth 1 00 (one) time each day. atorvastati 2020-0 Yes 40mg Take 40 mg [facility] (Lipitor) 6-13 by [facility] 40 MG 00:00: every tablet 00 night. furosemide 2020-0 Yes 1{tbl} Q.5D Take 1 [facility] (Lasix) 40 6-13 tablet by [facility] MG tablet 00:00: mouth 2 00 (two) times a day. losartan 2020-0 Yes .5{tbl} QD Take 0.5 [facility] (Cozaar) 25 6-13 tablets by [facility] MG tablet 00:00: mouth 1 00 (one) time each day. atorvastati 2020-0 Yes 40mg Take 40 mg [facility] (Lipitor) 6-13 by [facility] 40 MG 00:00: every tablet 00 night. furosemide 2020-0 Yes 1{tbl} Q.5D Take 1 [facility] (Lasix) 80 6-13 tablet by [facility] MG tablet 00:00: mouth 2 00 (two) times a day. losartan 2020-0 Yes .5{tbl} QD Take 0.5 [facility] (Cozaar) 25 6-13 tablets by [facility] MG tablet 00:00: mouth 1 00 (one) time each day. atorvastati 2020-0 Yes 40mg Take 40 mg [facility] (Lipitor) 6-13 by [facility] 40 MG 00:00: every tablet 00 night. furosemide 2020-0 Yes 1{tbl} Q.5D Take 1 [facility] (Lasix) 40 6-13 tablet by [facility] tablet 00:00: mouth 2 00 (two) times a day. losartan 0 Yes .5{tbl} QD Take 0.5 [facility] (Cozaar) 25 6-13 tablets by [facility] MG tablet 00:00: mouth 1 00 (one) time each day. atorvastati 0 Yes 40mg Take 40 mg [facility] (Lipitor) 6-13 by [facility] 40 MG 00:00: every tablet 00 night. furosemide 2020-0 Yes 1{tbl} Q.5D Take 1 [facility] (Lasix) 40 6-13 tablet by [facility] MG tablet 00:00: mouth 2 00 (two) times a day. losartan 2020-0 Yes .5{tbl} QD Take 0.5 [facility] (Cozaar) 25 6-13 tablets by [facility] MG tablet 00:00: mouth 1 00 (one) time each day. atorvastati 0 Yes 40mg Take 40 mg [facility] n (Lipitor) 6-13 by mouth [facility] 40 MG 00:00: every tablet 00 night. furosemide 2020-0 Yes 1{tbl} Q.5D Take 1 [facility] (Lasix) 40 6-13 tablet by [facility] MG tablet 00:00: mouth 2 00 (two) times a day. losartan 2020-0 Yes .5{tbl} QD Take 0.5 [facility] (Cozaar) 25 6-13 tablets by [facility] MG tablet 00:00: mouth 1 00 (one) time each day. atorvastati 2020-0 Yes 40mg Take 40 mg [facility] n (Lipitor) 6-13 by [facility] 40 MG 00:00: every tablet 00 night. furosemide 2020-0 Yes 1{tbl} Q.5D Take 1 [facility] (Lasix) 40 6-13 tablet by [facility] MG tablet 00:00: mouth 2 00 (two) times a day. losartan Yes .5{tbl} QD Take 0.5 [facility] (Cozaar) 25 6-13 tablets by [facility] MG tablet 00:00: mouth 1 00 (one) time each day. Saline No Notes: [facility] Flush 0.9% 6-03 (Same as: l 14:00: BD Enochs Posiflush) Saline No Notes: [facility] Flush 0.9% 6-03 (Same as: l 12:50: BD Max Posiflush) AMIODarone Yes 200 mg = 1 M emoria 200 mg oral 5-07 tab, PO, l tablet 17:58: Daily, # Enochs 00 90 tab, 1 Refill(s), Pharmacy: [id number], 185.42, cm, 03/22/21 11:01:00 CDT, Height, 164.545, kg, 03/22/21 11:01:00 CDT, Weight Regular Yes 10 unit, Memori a Insulin, 5-07 SUB-Q, l Human 100 16:09: BID, # 10 Her baer UNT/ML 00 mL, 0 Injectable Refill(s) Solution Aspirin 81 Yes 81 mg = 1 Me moria MG Enteric 5-07 tab, PO, l Coated 16:08: Daily, # Enochs Tablet 00 90 tab, 3 Refill(s) Metoprolol Yes 100 mg = 1 M emoria Succinate 5-07 tab, PO, l ER 100 mg 16:07: BID, # 90 Her baer oral 00 tab, 3 tablet, Refill(s) extended release losartan 25 Yes 12.5 mg = M emoria mg oral 5-07 0.5 tab, l tablet 16:07: PO, Daily, Debra nn 00 # 90 tab, 1 Refill(s) furosemide Yes 80 mg = 1 Me moria 80 mg oral 5-07 tab, PO, l tablet 16:07: BID, # 90 Riaz n 00 tab, 0 Refill(s) spironolact Yes 25 mg = 1 M emoria one 25 mg 5-07 tab, PO, l oral tablet 16:07: Daily, # He rmann 00 90 tab, 1 Refill(s) atorvastati Yes 40 mg = 1 M emoria n 40 MG 5-07 tab, PO, l Oral Tablet 16:06: Bedtime, # Enochs [Lipitor] 00 90 tab, 0 Refill(s) Digoxin 2020-0 Yes 125 Memoria 0.125 MG 5-07 microgram l Oral Tablet 16:06: = 1 tab, He rmann 00 PO, Daily, Hold if HR <50., # 90 tab, 1 Refill(s) apixaban 5 2020- Yes 5 mg, PO, Me moria MG Oral 5-07 Q12H, tab, l Tablet 16:04: 0 Max [Eliquis] 00 Refill(s), For Atrial Fibrilatio n Pacerone Yes 200mg QD Take 200 [facility] 200 MG 5-07 mg by Health tablet 00:00: mouth 1 00 (one) time each day. Pacerone 2020-0 Yes 200mg QD Take 200 [facility] 200 MG 5-07 mg by Health tablet 00:00: mouth 1 00 (one) time each day. Pacerone 2020-0 Yes 200mg QD Take 200 [facility] 200 MG 5-07 mg by Health tablet 00:00: mouth 1 00 (one) time each day. Pacerone 2020-0 Yes 200mg QD Take 200 UT 200 MG 5-07 mg by Health tablet 00:00: mouth 1 00 (one) time each day. Pacerone 2020-0 Yes 200mg QD Take 200 UT 200 MG 5-07 mg by Health tablet 00:00: mouth 1 00 (one) time each day. Pacerone 2020-0 Yes 200mg QD Take 200 UT 200 MG 5-07 mg by Health tablet 00:00: mouth 1 00 (one) time each day. Pacerone 2020-0 Yes 200mg QD Take 200 UT 200 MG 5-07 mg by Health tablet 00:00: mouth 1 00 (one) time each day. Pacerone 2020-0 Yes 200mg QD Take 200 UT 200 MG 5-07 mg by Health tablet 00:00: mouth 1 00 (one) time each day. Pacerone 2020-0 Yes 200mg QD Take 200 UT 200 MG 5-07 mg by Health tablet 00:00: mouth 1 00 (one) time each day. Pacerone 2021-0 Yes 200mg QD Take 200 UT 200 MG 5-07 mg by Health tablet 00:00: mouth 1 00 (one) time each day. Pacerone 2021-0 Yes 200mg QD Take 200 UT 200 MG 5-07 mg by Health tablet 00:00: mouth 1 00 (one) time each day. Pacerone 2021-0 Yes 200mg QD Take 200 UT 200 MG 5-07 mg by Health tablet 00:00: mouth 1 00 (one) time each day. Pacerone 2021-0 Yes 200mg QD Take 200 UT 200 MG 5-07 mg by Health tablet 00:00: mouth 1 00 (one) time each day. Pacerone 2021-0 Yes 200mg QD Take 200 [facility] 200 MG 5-07 mg by Health tablet 00:00: mouth 1 00 (one) time each day. Pacerone 2021-0 Yes 200mg QD Take 200 UT 200 MG 5-07 mg by Health tablet 00:00: mouth 1 00 (one) time each day. Pacerone 2021-0 Yes 200mg QD Take 200 UT 200 MG 5-07 mg by Health tablet 00:00: mouth 1 00 (one) time each day. Pacerone 2021-0 Yes 200mg QD Take 200 UT 200 MG 5-07 mg by Health tablet 00:00: mouth 1 00 (one) time each day. Pacerone 2021-0 Yes 200mg QD Take 200 UT 200 MG 5-07 mg by Health tablet 00:00: mouth 1 00 (one) time each day. Pacerone 2021-0 Yes 200mg QD Take 200 UT 200 MG 5-07 mg by Health tablet 00:00: mouth 1 00 (one) time each day. Pacerone 2021-0 Yes 200mg QD Take 200 UT 200 MG 5-07 mg by Health tablet 00:00: mouth 1 00 (one) time each day. Pacerone 2021-0 Yes 200mg QD Take 200 UT 200 MG 5-07 mg by Health tablet 00:00: mouth 1 00 (one) time each day. Pacerone 2021-0 Yes 200mg QD Take 200 UT 200 MG 5-07 mg by Health tablet 00:00: mouth 1 00 (one) time each day. Pacerone 2021-0 Yes 200mg QD Take 200 UT 200 MG 5-07 mg by Health tablet 00:00: mouth 1 00 (one) time each day. Pacerone 1-0 Yes 200mg QD Take 200 UT 200 MG 5-07 mg by Health tablet 00:00: mouth 1 00 (one) time each day. Pacerone 2020-0 Yes 200mg QD Take 200 UT 200 MG 5-07 mg by Health tablet 00:00: mouth 1 00 (one) time each day. Pacerone 2020-0 Yes 200mg QD Take 200 UT 200 MG 5-07 mg by Health tablet 00:00: mouth 1 00 (one) time each day. Pacerone 2020-0 Yes 200mg QD Take 200 UT 200 MG 5-07 mg by Health tablet 00:00: mouth 1 00 (one) time each day. Pacerone 2020-0 Yes 200mg QD Take 200 UT 200 MG 5-07 mg by Health tablet 00:00: mouth 1 00 (one) time each day. Pacerone 2020-0 Yes 200mg QD Take 200 UT 200 MG 5-07 mg by Health tablet 00:00: mouth 1 00 (one) time each day. Pacerone 2020-0 Yes 200mg QD Take 200 UT 200 MG 5-07 mg by Health tablet 00:00: mouth 1 00 (one) time each day. Pacerone 2020-0 Yes 200mg QD Take 200 UT 200 MG 5-07 mg by Health tablet 00:00: mouth 1 00 (one) time each day. Pacerone 2020-0 Yes 200mg QD Take 200 UT 200 MG 5-07 mg by Health tablet 00:00: mouth 1 00 (one) time each day. Pacerone 2020-0 Yes 200mg QD Take 200 UT 200 MG 5-07 mg by Health tablet 00:00: mouth 1 00 (one) time each day. aspirin 81 Yes [id number] 81mg Take 1 U nivers mg chewable 1-28 tablet by [facility] of tablet 00:00: mouth [place] 00 daily. [facility] atorvastati 0 Yes [id number] 40mg Take 1 [facility] n 40 mg 1-28 tablet by [facility] of tablet 00:00: mouth at [place] 00 bedtime. [facility] digoxin 125 2020-0 Yes [id number] 125ug Take 1 [facility] mcg (0.125 1-28 tablet by ity of mg) tablet 00:00: mouth [place] 00 daily. [facility] furosemide 2020-0 Yes [id number] 80mg Take 1 U nivers 80 mg 1-28 tablet by it[facility] of tablet 00:00: mouth [place] 00 every Medical morning Branch and evening. losartan 25 2020-0 Yes [id number] 12.5mg Take 0.5 [facility] mg tablet 1-28 tablets by ity of 00:00: mouth [place] 00 daily. [facility] metoprolol 2020-0 Yes [id number] 100mg Take 1 [facility] succinate 1-28 tablet by ity o f XL 100 mg 00:00: mouth 2 [place] 24 hr 00 (two) Medical tablet times Branch daily. spironolact 2020-0 Yes [id number] 25mg Take 1 [facility] one 25 mg 1-28 tablet by ity o f tablet 00:00: mouth [place] 00 daily. [facility] aspirin 81 0 Yes [id number] 81mg Take 1 U nivers mg chewable 1-28 tablet by ity of tablet 00:00: mouth [place] 00 daily. [facility] atorvastati 0 Yes [id number] 40mg Take 1 [facility] n 40 mg 1-28 tablet by [facility] of tablet 00:00: mouth at [place] 00 bedtime. [facility] digoxin 125 2020-0 Yes [id number] 125ug Take 1 [facility] mcg (0.125 1-28 tablet by [facility] of mg) tablet 00:00: mouth [place] 00 daily. [facility] furosemide 2020-0 Yes [id number] 80mg Take 1 U nivers 80 mg 1-28 tablet by it[facility] of tablet 00:00: mouth [place] 00 every Medical morning Branch and evening. losartan 25 2020-0 Yes [id number] 12.5mg Take 0.5 [facility] mg tablet 1-28 tablets by ity of 00:00: mouth [place] 00 daily. [facility] metoprolol 2020-0 Yes [id number] 100mg Take 1 [facility] succinate 1-28 tablet by ity o f XL 100 mg 00:00: mouth 2 [place] 24 hr 00 (two) Medical tablet times Branch daily. spironolact 2020-0 Yes [id number] 25mg Take 1 [facility] one 25 mg 1-28 tablet by ity o f tablet 00:00: mouth [place] 00 daily. [facility] aspirin 81 2021-0 Yes [id number] 81mg Take 1 U nivers mg chewable 1-28 tablet by ity of tablet 00:00: mouth [place] 00 daily. [facility] atorvastati Yes [id number] 40mg Take 1 [facility] n 40 mg 1-28 tablet by ity of tablet 00:00: mouth at [place] 00 bedtime. [facility] digoxin 125 2020-0 Yes [id number] 125ug Take 1 [facility] mcg (0.125 1-28 tablet by ity of mg) tablet 00:00: mouth [place] 00 daily. [facility] furosemide 0 Yes [id number] 80mg Take 1 U nivers 80 mg 1-28 tablet by ity of tablet 00:00: mouth [place] 00 every Medical morning Branch and evening. losartan 25 Yes [id number] 12.5mg Take 0.5 [facility] mg tablet 1-28 tablets by ity of 00:00: mouth [place] 00 daily. [facility] metoprolol Yes [id number] 100mg Take 1 [facility] succinate 1-28 tablet by ity o f XL 100 mg 00:00: mouth 2 [place] 24 hr 00 (two) Medical tablet times Branch daily. spironolact Yes [id number] 25mg Take 1 [facility] one 25 mg 1-28 tablet by ity o f tablet 00:00: mouth [place] 00 daily. [facility] aspirin 81 0 Yes [id number] 81mg Take 1 U nivers mg chewable 1-28 tablet by ity of tablet 00:00: mouth [place] 00 daily. [facility] atorvastati Yes [id number] 40mg Take 1 [facility] n 40 mg 1-28 tablet by ity of tablet 00:00: mouth at [place] 00 bedtime. [facility] digoxin 125 2020-0 Yes [id number] 125ug Take 1 [facility] mcg (0.125 1-28 tablet by ity of mg) tablet 00:00: mouth [place] 00 daily. [facility] furosemide 0 Yes [id number] 80mg Take 1 U nivers 80 mg 1-28 tablet by ity of tablet 00:00: mouth [place] 00 every Medical morning Branch and evening. losartan 25 0 Yes [id number] 12.5mg Take 0.5 [facility] mg tablet 1-28 tablets by ity of 00:00: mouth [place] 00 daily. [facility] metoprolol 2021-0 Yes [id number] 100mg Take 1 [facility] succinate 1-28 tablet by ity o f XL 100 mg 00:00: mouth 2 [place] 24 hr 00 (two) Medical tablet times Branch daily. spironolact Yes [id number] 25mg Take 1 [facility] one 25 mg 1-28 tablet by ity o f tablet 00:00: mouth [place] 00 daily. [facility] aspirin 81 Yes [id number] 81mg Take 1 U nivers mg chewable 1-28 tablet by ity of tablet 00:00: mouth [place] 00 daily. [facility] atorvastati Yes [id number] 40mg Take 1 [facility] n 40 mg 1-28 tablet by ity of tablet 00:00: mouth at [place] 00 bedtime. [facility] digoxin 125 Yes [id number] 125ug Take 1 [facility] mcg (0.125 1-28 tablet by ity of mg) tablet 00:00: mouth [place] 00 daily. [facility] furosemide Yes [id number] 80mg Take 1 U nivers 80 mg 1-28 tablet by ity of tablet 00:00: mouth [place] 00 every Medical morning Branch and evening. losartan 25 Yes [id number] 12.5mg Take 0.5 [facility] mg tablet 1-28 tablets by ity of 00:00: mouth [place] 00 daily. [facility] metoprolol Yes [id number] 100mg Take 1 [facility] succinate 1-28 tablet by ity o f XL 100 mg 00:00: mouth 2 [place] 24 hr 00 (two) Medical tablet times Branch daily. spironolact Yes [id number] 25mg Take 1 [facility] one 25 mg 1-28 tablet by ity o f tablet 00:00: mouth [place] 00 daily. [facility] aspirin 81 0 Yes [id number] 81mg Take 1 U nivers mg chewable 1-28 tablet by ity of tablet 00:00: mouth [place] 00 daily. [facility] atorvastati Yes [id number] 40mg Take 1 [facility] n 40 mg 1-28 tablet by ity of tablet 00:00: mouth at [place] 00 bedtime. [facility] digoxin 125 0 Yes [id number] 125ug Take 1 [facility] mcg (0.125 1-28 tablet by ity of mg) tablet 00:00: mouth [place] 00 daily. [facility] furosemide Yes [id number] 80mg Take 1 U nivers 80 mg 1-28 tablet by ity of tablet 00:00: mouth [place] 00 every Medical morning Branch and evening. losartan 25 Yes [id number] 12.5mg Take 0.5 [facility] mg tablet 1-28 tablets by ity of 00:00: mouth [place] 00 daily. [facility] metoprolol Yes [id number] 100mg Take 1 [facility] succinate 1-28 tablet by ity o f XL 100 mg 00:00: mouth 2 [place] 24 hr 00 (two) Medical tablet times Branch daily. spironolact Yes [id number] 25mg Take 1 [facility] one 25 mg 1-28 tablet by ity o f tablet 00:00: mouth [place] 00 daily. [facility] aspirin 81 Yes [id number] 81mg Take 1 U nivers mg chewable 1-28 tablet by ity of tablet 00:00: mouth [place] 00 daily. [facility] atorvastati Yes [id number] 40mg Take 1 [facility] n 40 mg 1-28 tablet by ity of tablet 00:00: mouth at [place] 00 bedtime. [facility] digoxin 125 0 Yes [id number] 125ug Take 1 [facility] mcg (0.125 1-28 tablet by ity of mg) tablet 00:00: mouth [place] 00 daily. [facility] furosemide Yes [id number] 80mg Take 1 U nivers 80 mg 1-28 tablet by ity of tablet 00:00: mouth [place] 00 every Medical morning Branch and evening. losartan 25 Yes [id number] 12.5mg Take 0.5 [facility] mg tablet 1-28 tablets by ity of 00:00: mouth [place] 00 daily. [facility] metoprolol Yes [id number] 100mg Take 1 [facility] succinate 1-28 tablet by ity o f XL 100 mg 00:00: mouth 2 [place] 24 hr 00 (two) Medical tablet times Branch daily. spironolact Yes [id number] 25mg Take 1 [facility] one 25 mg 1-28 tablet by ity o f tablet 00:00: mouth [place] 00 daily. [facility] aspirin 81 Yes [id number] 81mg Take 1 [facility] nivers mg chewable 1-28 tablet by ity of tablet 00:00: mouth [place] 00 daily. [facility] atorvastati 0 Yes [id number] 40mg Take 1 [facility] n 40 mg 1-28 tablet by [facility] of tablet 00:00: mouth at [place] 00 bedtime. [facility] digoxin 125 0 Yes [id number] 125ug Take 1 [facility] mcg (0.125 1-28 tablet by ity of mg) tablet 00:00: mouth [place] 00 daily. [facility] furosemide 0 Yes [id number] 80mg Take 1 [facility] nivers 80 mg 1-28 tablet by it[facility] of tablet 00:00: mouth [place] 00 every Medical morning Branch and evening. losartan 25 Yes [id number] 12.5mg Take 0.5 [facility] mg tablet 1-28 tablets by it[facility] of 00:00: mouth [place] 00 daily. [facility] metoprolol Yes [id number] 100mg Take 1 [facility] succinate 1-28 tablet by ity o f XL 100 mg 00:00: mouth 2 [place] 24 hr 00 (two) Medical tablet times Branch daily. spironolact Yes [id number] 25mg Take 1 [facility] one 25 mg 1-28 tablet by ity o f tablet 00:00: mouth [place] 00 daily. [facility] aspirin 81 0 Yes [id number] 81mg Take 1 [facility] nivers mg chewable 1-28 tablet by it[facility] of tablet 00:00: mouth [place] 00 daily. [facility] atorvastati Yes [id number] 40mg Take 1 [facility] n 40 mg 1-28 tablet by it[facility] of tablet 00:00: mouth at [place] 00 bedtime. [facility] digoxin 125 0 Yes [id number] 125ug Take 1 [facility] mcg (0.125 1-28 tablet by ity of mg) tablet 00:00: mouth [place] 00 daily. [facility] furosemide 0 Yes [id number] 80mg Take 1 [facility] nivers 80 mg 1-28 tablet by [facility] of tablet 00:00: mouth [place] 00 every Medical morning Branch and evening. losartan 25 2020-0 Yes [id number] 12.5mg Take 0.5 [facility] mg tablet 1-28 tablets by [facility] of 00:00: mouth [place] 00 daily. [facility] metoprolol Yes [id number] 100mg Take 1 [facility] succinate 1-28 tablet by ity o f XL 100 mg 00:00: mouth 2 [place] 24 hr 00 (two) Medical tablet times Branch daily. spironolact Yes [id number] 25mg Take 1 [facility] one 25 mg 1-28 tablet by it[facility] o f tablet 00:00: mouth [place] 00 daily. [facility] aspirin 81 0 Yes [id number] 81mg Take 1 [facility] nivers mg chewable 1-28 tablet by [facility] of tablet 00:00: mouth [place] 00 daily. [facility] atorvastati Yes [id number] 40mg Take 1 [facility] n 40 mg 1-28 tablet by [facility] of tablet 00:00: mouth at [place] 00 bedtime. [facility] digoxin 125 0 Yes [id number] 125ug Take 1 [facility] mcg (0.125 1-28 tablet by [facility] of mg) tablet 00:00: mouth [place] 00 daily. [facility] furosemide Yes [id number] 80mg Take 1 [facility] nivers 80 mg 1-28 tablet by [facility] of tablet 00:00: mouth [place] 00 every Medical morning Branch and evening. losartan 25 Yes [id number] 12.5mg Take 0.5 [facility] mg tablet 1-28 tablets by [facility] of 00:00: mouth [place] 00 daily. [facility] metoprolol Yes [id number] 100mg Take 1 [facility] succinate 1-28 tablet by it[facility] o f XL 100 mg 00:00: mouth 2 [place] 24 hr 00 (two) Medical tablet times Branch daily. spironolact Yes [id number] 25mg Take 1 [facility] one 25 mg 1-28 tablet by it[facility] o f tablet 00:00: mouth [place] 00 daily. [facility] aspirin 81 0 Yes 81mg QD Chew 81 mg U T MG chewable 1-28 1 (one) Healt h tablet 00:00: time each 00 day. metoprolol 0 Yes 100mg Q.5D Take 100 [facility] succinate 1-28 mg by [facility] XL 00:00: mouth 2 (Toprol-XL) 00 (two) 100 MG 24 times a hr tablet day. spironolact 0 Yes 25mg QD Take 25 mg [facility] one 1-28 by mouth 1 [facility] (Aldactone) 00:00: (one) time 25 MG 00 each day. tablet aspirin 81 Yes 81mg QD Chew 81 mg U T MG chewable 1-28 1 (one) Healt h tablet 00:00: time each 00 day. metoprolol 1-0 Yes 100mg Q.5D Take 100 [facility] succinate 1-28 mg by [facility] XL 00:00: mouth 2 (Toprol-XL) 00 (two) 100 MG 24 times a hr tablet day. spironolact 1-0 Yes 25mg QD Take 25 mg [facility] one 1-28 by mouth 1 [facility] (Aldactone) 00:00: (one) time 25 MG 00 each day. tablet aspirin 81 1-0 Yes 81mg Chew 81 [facility] MG chewable 1-28 mg. Health tablet 00:00: 00 metoprolol 1-0 Yes 100mg Q.5D Take 100 [facility] succinate 1-28 mg by Health XL 00:00: mouth 2 (Toprol-XL) 00 (two) 100 MG 24 times a hr tablet day. spironolact 2020-0 Yes 25mg QD Take 25 mg [facility] one 1-28 by mouth 1 [facility] (Aldactone) 00:00: (one) time 25 MG 00 each day. tablet aspirin 81 2020-0 Yes 81mg QD Chew 81 mg U T MG chewable 1-28 1 (one) Healt h tablet 00:00: time each 00 day. metoprolol 2020-0 Yes 100mg Q.5D Take 100 [facility] succinate 1-28 mg by Health XL 00:00: mouth 2 (Toprol-XL) 00 (two) 100 MG 24 times a hr tablet day. spironolact 1-0 Yes 25mg QD Take 25 mg [facility] one 1-28 by mouth 1 [facility] (Aldactone) 00:00: (one) time 25 MG 00 each day. tablet aspirin 81 1-0 Yes 81mg QD Chew 81 mg U T MG chewable 1-28 1 (one) Healt h tablet 00:00: time each 00 day. metoprolol 1-0 Yes 100mg Q.5D Take 100 [facility] succinate 1-28 mg by [facility] XL 00:00: mouth 2 (Toprol-XL) 00 (two) 100 MG 24 times a hr tablet day. spironolact 1-0 Yes 25mg QD Take 25 mg [facility] one 1-28 by mouth 1 [facility] (Aldactone) 00:00: (one) time 25 MG 00 each day. tablet aspirin 81 1-0 Yes 81mg QD Chew 81 mg U T MG chewable 1-28 1 (one) Healt h tablet 00:00: time each 00 day. metoprolol 2021-0 Yes 100mg Q.5D Take 100 [facility] succinate 1-28 mg by [facility] XL 00:00: mouth 2 (Toprol-XL) 00 (two) 100 MG 24 times a hr tablet day. spironolact 2021-0 Yes 25mg QD Take 25 mg [facility] one 1-28 by mouth 1 [facility] (Aldactone) 00:00: (one) time 25 MG 00 each day. tablet aspirin 81 2021-0 Yes 81mg QD Chew 81 mg U T MG chewable 1-28 1 (one) Healt h tablet 00:00: time each 00 day. metoprolol 2021-0 Yes 100mg Q.5D Take 100 [facility] succinate 1-28 mg by Health XL 00:00: mouth 2 (Toprol-XL) 00 (two) 100 MG 24 times a hr tablet day. spironolact 2021-0 Yes 25mg QD Take 25 mg [facility] one 1-28 by mouth 1 [facility] (Aldactone) 00:00: (one) time 25 MG 00 each day. tablet aspirin 81 2021-0 Yes 81mg QD Chew 81 mg U T MG chewable 1-28 1 (one) Healt h tablet 00:00: time each 00 day. metoprolol 2021-0 Yes 100mg Q.5D Take 100 [facility] succinate 1-28 mg by [facility] XL 00:00: mouth 2 (Toprol-XL) 00 (two) 100 MG 24 times a hr tablet day. spironolact 2021-0 Yes 25mg QD Take 25 mg [facility] one 1-28 by mouth 1 [facility] (Aldactone) 00:00: (one) time 25 MG 00 each day. tablet aspirin 81 2021-0 Yes 81mg QD Chew 81 mg U T MG chewable 1-28 1 (one) Healt h tablet 00:00: time each 00 day. metoprolol 2021-0 Yes 100mg Q.5D Take 100 [facility] succinate 1-28 mg by [facility] XL 00:00: mouth 2 (Toprol-XL) 00 (two) 100 MG 24 times a hr tablet day. spironolact 2021-0 Yes 25mg QD Take 25 mg [facility] one 1-28 by mouth 1 [facility] (Aldactone) 00:00: (one) time 25 MG 00 each day. tablet aspirin 81 2021-0 Yes 81mg QD Chew 81 mg U T MG chewable 1-28 1 (one) Healt h tablet 00:00: time each 00 day. metoprolol 2021-0 Yes 100mg Q.5D Take 100 [facility] succinate 1-28 mg by [facility] XL 00:00: mouth 2 (Toprol-XL) 00 (two) 100 MG 24 times a hr tablet day. spironolact 2021-0 Yes 25mg QD Take 25 mg [facility] one 1-28 by mouth 1 [facility] (Aldactone) 00:00: (one) time 25 MG 00 each day. tablet aspirin 81 2021-0 Yes 81mg QD Chew 81 mg U T MG chewable 1-28 1 (one) Healt h tablet 00:00: time each 00 day. metoprolol 2021-0 Yes 100mg Q.5D Take 100 [facility] succinate 1-28 mg by Health XL 00:00: mouth 2 (Toprol-XL) 00 (two) 100 MG 24 times a hr tablet day. spironolact 2021-0 Yes 25mg QD Take 25 mg [facility] one 1-28 by mouth 1 [facility] (Aldactone) 00:00: (one) time 25 MG 00 each day. tablet aspirin 81 2021-0 Yes 81mg QD Chew 81 mg U T MG chewable 1-28 1 (one) Healt h tablet 00:00: time each 00 day. metoprolol 2021-0 Yes 100mg Q.5D Take 100 [facility] succinate 1-28 mg by [facility] XL 00:00: mouth 2 (Toprol-XL) 00 (two) 100 MG 24 times a hr tablet day. spironolact 2021-0 Yes 25mg QD Take 25 mg [facility] one 1-28 by mouth 1 [facility] (Aldactone) 00:00: (one) time 25 MG 00 each day. tablet aspirin 81 2021-0 Yes 81mg QD Chew 81 mg U T MG chewable 1-28 1 (one) Healt h tablet 00:00: time each 00 day. metoprolol 2021-0 Yes 100mg Q.5D Take 100 [facility] succinate 1-28 mg by Health XL 00:00: mouth 2 (Toprol-XL) 00 (two) 100 MG 24 times a hr tablet day. spironolact 2021-0 Yes 25mg QD Take 25 mg [facility] one 1-28 by mouth 1 [facility] (Aldactone) 00:00: (one) time 25 MG 00 each day. tablet aspirin 81 2021-0 Yes 81mg QD Chew 81 mg U T MG chewable 1-28 1 (one) Healt h tablet 00:00: time each 00 day. metoprolol 2021-0 Yes 100mg Q.5D Take 100 [facility] succinate 1-28 mg by Health XL 00:00: mouth 2 (Toprol-XL) 00 (two) 100 MG 24 times a hr tablet day. spironolact 2021-0 Yes 25mg QD Take 25 mg [facility] one 1-28 by mouth 1 [facility] (Aldactone) 00:00: (one) time 25 MG 00 each day. tablet aspirin 81 2021-0 Yes 81mg QD Chew 81 mg U T MG chewable 1-28 1 (one) Healt h tablet 00:00: time each 00 day. metoprolol 2021-0 Yes 100mg Q.5D Take 100 [facility] succinate 1-28 mg by Health XL 00:00: mouth 2 (Toprol-XL) 00 (two) 100 MG 24 times a hr tablet day. spironolact 2021-0 Yes 25mg QD Take 25 mg [facility] one 1-28 by mouth 1 [facility] (Aldactone) 00:00: (one) time 25 MG 00 each day. tablet aspirin 81 1-0 Yes 81mg QD Chew 81 mg U T MG chewable 1-28 1 (one) Healt h tablet 00:00: time each 00 day. metoprolol 2021-0 Yes 100mg Q.5D Take 100 [facility] succinate 1-28 mg by [facility] XL 00:00: mouth 2 (Toprol-XL) 00 (two) 100 MG 24 times a hr tablet day. spironolact 2021-0 Yes 25mg QD Take 25 mg [facility] one 1-28 by mouth 1 [facility] (Aldactone) 00:00: (one) time 25 MG 00 each day. tablet aspirin 81 2021-0 Yes 81mg QD Chew 81 mg U T MG chewable 1-28 1 (one) [facility]alt h tablet 00:00: time each 00 day. metoprolol 2021-0 Yes 100mg Q.5D Take 100 [facility] succinate 1-28 mg by [facility] XL 00:00: mouth 2 (Toprol-XL) 00 (two) 100 MG 24 times a hr tablet day. spironolact 2021-0 Yes 25mg QD Take 25 mg [facility] one 1-28 by mouth 1 [facility] (Aldactone) 00:00: (one) time 25 MG 00 each day. tablet aspirin 81 2021-0 Yes 81mg QD Chew 81 mg U T MG chewable 1-28 1 (one) [facility]alt h tablet 00:00: time each 00 day. metoprolol 1-0 Yes 100mg Q.5D Take 100 [facility] succinate 1-28 mg by [facility] XL 00:00: mouth 2 (Toprol-XL) 00 (two) 100 MG 24 times a hr tablet day. spironolact 1-0 Yes 25mg QD Take 25 mg [facility] one 1-28 by mouth 1 [facility] (Aldactone) 00:00: (one) time 25 MG 00 each day. tablet aspirin 81 1-0 Yes 81mg QD Chew 81 mg U T MG chewable 1-28 1 (one) Healt h tablet 00:00: time each 00 day. metoprolol 1-0 Yes 100mg Q.5D Take 100 [facility] succinate 1-28 mg by [facility] XL 00:00: mouth 2 (Toprol-XL) 00 (two) 100 MG 24 times a hr tablet day. spironolact 1-0 Yes 25mg QD Take 25 mg [facility] one 1-28 by mouth 1 [facility] (Aldactone) 00:00: (one) time 25 MG 00 each day. tablet aspirin 81 1-0 Yes 81mg QD Chew 81 mg U T MG chewable 1-28 1 (one) [facility]alt h tablet 00:00: time each 00 day. metoprolol 2021-0 Yes 100mg Q.5D Take 100 [facility] succinate 1-28 mg by [facility] XL 00:00: mouth 2 (Toprol-XL) 00 (two) 100 MG 24 times a hr tablet day. spironolact 2021-0 Yes 25mg QD Take 25 mg [facility] one 1-28 by mouth 1 [facility] (Aldactone) 00:00: (one) time 25 MG 00 each day. tablet aspirin 81 2021-0 Yes 81mg QD Chew 81 mg U T MG chewable 1-28 1 (one) [facility]alt h tablet 00:00: time each 00 day. metoprolol 2021-0 Yes 100mg Q.5D Take 100 [facility] succinate 1-28 mg by [facility] XL 00:00: mouth 2 (Toprol-XL) 00 (two) 100 MG 24 times a hr tablet day. spironolact 2021-0 Yes 25mg QD Take 25 mg [facility] one 1-28 by mouth 1 [facility] (Aldactone) 00:00: (one) time 25 MG 00 each day. tablet aspirin 81 2021-0 Yes 81mg QD Chew 81 mg U T MG chewable 1-28 1 (one) Healt h tablet 00:00: time each 00 day. metoprolol 2021-0 Yes 100mg Q.5D Take 100 [facility] succinate 1-28 mg by [facility] XL 00:00: mouth 2 (Toprol-XL) 00 (two) 100 MG 24 times a hr tablet day. spironolact 2021-0 Yes 25mg QD Take 25 mg [facility] one 1-28 by mouth 1 [facility] (Aldactone) 00:00: (one) time 25 MG 00 each day. tablet aspirin 81 2021-0 Yes 81mg QD Chew 81 mg U T MG chewable 1-28 1 (one) Healt h tablet 00:00: time each 00 day. metoprolol 2021-0 Yes 100mg Q.5D Take 100 [facility] succinate 1-28 mg by [facility] XL 00:00: mouth 2 (Toprol-XL) 00 (two) 100 MG 24 times a hr tablet day. spironolact 2021-0 Yes 25mg QD Take 25 mg [facility] one 1-28 by mouth 1 [facility] (Aldactone) 00:00: (one) time 25 MG 00 each day. tablet aspirin 81 2021-0 Yes 81mg QD Chew 81 mg U T MG chewable 1-28 1 (one) Healt h tablet 00:00: time each 00 day. metoprolol 2021-0 Yes 100mg Q.5D Take 100 [facility] succinate 1-28 mg by [facility] XL 00:00: mouth 2 (Toprol-XL) 00 (two) 100 MG 24 times a hr tablet day. spironolact 2021-0 Yes 25mg QD Take 25 mg [facility] one 1-28 by mouth 1 [facility] (Aldactone) 00:00: (one) time 25 MG 00 each day. tablet aspirin 81 2021-0 Yes 81mg QD Chew 81 mg U T MG chewable 1-28 1 (one) Healt h tablet 00:00: time each 00 day. metoprolol 2021-0 Yes 100mg Q.5D Take 100 [facility] succinate 1-28 mg by [facility] XL 00:00: mouth 2 (Toprol-XL) 00 (two) 100 MG 24 times a hr tablet day. spironolact 2021-0 Yes 25mg QD Take 25 mg [facility] one 1-28 by mouth 1 [facility] (Aldactone) 00:00: (one) time 25 MG 00 each day. tablet aspirin 81 2021-0 Yes 81mg QD Chew 81 mg U T MG chewable 1-28 1 (one) Healt h tablet 00:00: time each 00 day. metoprolol 1-0 Yes 100mg Q.5D Take 100 [facility] succinate 1-28 mg by [facility] XL 00:00: mouth 2 (Toprol-XL) 00 (two) 100 MG 24 times a hr tablet day. spironolact 1-0 Yes 25mg QD Take 25 mg [facility] one 1-28 by mouth 1 [facility] (Aldactone) 00:00: (one) time 25 MG 00 each day. tablet aspirin 81 1-0 Yes 81mg QD Chew 81 mg U T MG chewable 1-28 1 (one) Healt h tablet 00:00: time each 00 day. metoprolol 1-0 Yes 100mg Q.5D Take 100 [facility] succinate 1-28 mg by [facility] XL 00:00: mouth 2 (Toprol-XL) 00 (two) 100 MG 24 times a hr tablet day. spironolact 1-0 Yes 25mg QD Take 25 mg [facility] one 1-28 by mouth 1 [facility] (Aldactone) 00:00: (one) time 25 MG 00 each day. tablet aspirin 81 1-0 Yes 81mg QD Chew 81 mg U T MG chewable 1-28 1 (one) Healt h tablet 00:00: time each 00 day. metoprolol 2021-0 Yes 100mg Q.5D Take 100 [facility] succinate 1-28 mg by [facility] XL 00:00: mouth 2 (Toprol-XL) 00 (two) 100 MG 24 times a hr tablet day. spironolact 2021-0 Yes 25mg QD Take 25 mg [facility] one 1-28 by mouth 1 [facility] (Aldactone) 00:00: (one) time 25 MG 00 each day. tablet aspirin 81 2021-0 Yes 81mg QD Chew 81 mg U T MG chewable 1-28 1 (one) Healt h tablet 00:00: time each 00 day. metoprolol 2021-0 Yes 100mg Q.5D Take 100 [facility] succinate 1-28 mg by [facility] XL 00:00: mouth 2 (Toprol-XL) 00 (two) 100 MG 24 times a hr tablet day. spironolact 2021-0 Yes 25mg QD Take 25 mg [facility] one 1-28 by mouth 1 [facility] (Aldactone) 00:00: (one) time 25 MG 00 each day. tablet aspirin 81 2021-0 Yes 81mg QD Chew 81 mg U T MG chewable 1-28 1 (one) Healt h tablet 00:00: time each 00 day. metoprolol 2021-0 Yes 100mg Q.5D Take 100 [facility] succinate 1-28 mg by [facility] XL 00:00: mouth 2 (Toprol-XL) 00 (two) 100 MG 24 times a hr tablet day. spironolact 2021-0 Yes 25mg QD Take 25 mg [facility] one 1-28 by mouth 1 [facility] (Aldactone) 00:00: (one) time 25 MG 00 each day. tablet aspirin 81 2021-0 Yes 81mg QD Chew 81 mg U T MG chewable 1-28 1 (one) Healt h tablet 00:00: time each 00 day. metoprolol 2021-0 Yes 100mg Q.5D Take 100 [facility] succinate 1-28 mg by [facility] XL 00:00: mouth 2 (Toprol-XL) 00 (two) 100 MG 24 times a hr tablet day. spironolact 2021-0 Yes 25mg QD Take 25 mg [facility] one 1-28 by mouth 1 [facility] (Aldactone) 00:00: (one) time 25 MG 00 each day. tablet aspirin 81 2021-0 Yes 81mg QD Chew 81 mg U T MG chewable 1-28 1 (one) Healt h tablet 00:00: time each 00 day. metoprolol 2021-0 Yes 100mg Q.5D Take 100 [facility] succinate 1-28 mg by [facility] XL 00:00: mouth 2 (Toprol-XL) 00 (two) 100 MG 24 times a hr tablet day. spironolact 2021-0 Yes 25mg QD Take 25 mg [facility] one 1-28 by mouth 1 [facility] (Aldactone) 00:00: (one) time 25 MG 00 each day. tablet aspirin 81 2021-0 Yes 81mg QD Chew 81 mg U T MG chewable -28 1 (one) Healt h tablet 00:00: time each 00 day. metoprolol Yes 100mg Q.5D Take 100 [facility] succinate 1-28 mg by [facility] XL 00:00: mouth 2 (Toprol-XL) 00 (two) 100 MG 24 times a hr tablet day. spironolact Yes 25mg QD Take 25 mg [facility] one -28 by mouth 1 [facility] (Aldactone) 00:00: (one) time 25 MG 00 each day. tablet metoprolol 2019-11 Yes 100mg Take 1 [facility] ers succinate 1-25 tablet by ity o f XL 100 mg 00:00: mouth 2 [place] 24 hr 00 (two) Medical tablet times Branch daily. metoprolol 2019-11 Yes 100mg Take 1 [facility] ers succinate 1-25 tablet by ity o f XL 100 mg 00:00: mouth 2 [place] 24 hr 00 (two) Medical tablet times Branch daily. metoprolol 2019-11 Yes 100mg Take 1 [facility] ers succinate 1-25 tablet by ity o f XL 100 mg 00:00: mouth 2 [place] 24 hr 00 (two) Medical tablet times Branch daily. metoprolol 2019-11 Yes 100mg Take 1 [facility] ers succinate 1-25 tablet by ity o f XL 100 mg 00:00: mouth 2 [place] 24 hr 00 (two) Medical tablet times Branch daily. metoprolol 2019-11 No 100mg Take 1 Uni vers succinate 1-25 -28 tablet by ity of XL 100 mg 00:00: 00:00 mouth 2 [place] 24 [place] 00 :00 (two) Medical tablet times Branch daily. metoprolol 2019-11 No 100mg Take 1 Uni vers succinate 1-25 -28 tablet by ity of XL 100 mg 00:00: 00:00 mouth 2 [place] 24 [place] 00 :00 (two) Medical tablet times Branch daily. metoprolol 2019-11 No 100mg Take 1 Uni vers succinate 1-25 -28 tablet by ity of XL 100 mg 00:00: 00:00 mouth 2 [place] 24 [place] 00 :00 (two) Medical tablet times Branch daily. digoxin 125 2019- Yes [id number] 125ug Take 1 [facility] mcg (0.125 1-20 tablet by ity of mg) tablet 00:00: mouth [place] 00 daily. Medical Branch digoxin 125 2019-11 Yes [id number] 125ug Take 1 [facility] mcg (0.125 1-20 tablet by ity of mg) tablet 00:00: mouth [place] 00 daily. [facility] Branch digoxin 125 2019-11 Yes [id number] 125ug Take 1 [facility] mcg (0.125 1-20 tablet by ity of mg) tablet 00:00: mouth [place] 00 daily. [facility] Branch digoxin 125 2019-11 Yes [id number] 125ug Take 1 [facility] mcg (0.125 1-20 tablet by ity of mg) tablet 00:00: mouth [place] 00 daily. [facility] Branch digoxin 125 2019-11 Yes [id number] 125ug Take 1 [facility] mcg (0.125 1-20 tablet by ity of mg) tablet 00:00: mouth [place] 00 daily. [facility] digoxin 125 2019-11- No [id number] 125ug Take 1 Univers mcg (0.125 1-20 01-28 tablet by ity of mg) tablet 00:00: 00:00 mouth [place] 00 :00 daily. [facility] digoxin 125 2019-11- No [id number] 125ug Take 1 [facility] mcg (0.125 1-20 -28 tablet by ity of mg) tablet 00:00: 00:00 mouth [place] 00 :00 daily. [facility] digoxin 125 2019-11- No [id number] 125ug Take 1 [facility] mcg (0.125 1-20 -28 tablet by ity of mg) tablet 00:00: 00:00 mouth [place] 00 :00 daily. [facility] spironolact 2019-11 Yes 12.5mg 12.5 mg, [facility] one 12-04 Oral, ity of (ALDACTONE) 15:00: DAILY, [place] half tablet 00 First dose Me dical 12.5 mg (after Branch last modificati on) on Mariaelena 10/04/20 at 0900, Until Discontinu ed, Routine insulin NPH 2019-11 Yes 40U 40 Units, U nivers and regular 12-04 Subcutaneo it y of human 70-30 02:00: us, BID, [place] (HUMULIN 00 First dose Medic al 70-30 U-100 (after Branch INSULIN) last 100 unit/mL modificati (70-30) on) on Wed injection 10/03/20 40 Units at 2000, Until Discontinu ed, Routine digoxin 125 2019-11 Yes [id number] .125mg Take 1 [facility] mcg tablet 1-19 tablet by ity of 00:00: mouth [place] 00 daily. Medical Branch losartan 25 2019-11 Yes [id number] 12.5mg Take 0.5 [facility] mg tablet 1-19 tablets by ity of 00:00: mouth [place] 00 daily. Medical Branch spironolact 2019-11 Yes [id number] 12.5mg Take 0.5 [facility] one 25 mg 1-19 tablets by ity of tablet 00:00: mouth [place] 00 daily. Medical Branch digoxin 125 2019-11 Yes [id number] .125mg Take 1 [facility] mcg tablet 1-19 tablet by ity of 00:00: mouth [place] 00 daily. Medical Branch losartan 25 2019-11 Yes [id number] 12.5mg Take 0.5 [facility] mg tablet 1-19 tablets by ity of 00:00: mouth [place] 00 daily. Medical Branch spironolact 2019-11 Yes [id number] 12.5mg Take 0.5 [facility] one 25 mg 1-19 tablets by ity of tablet 00:00: mouth [place] 00 daily. Medical Branch digoxin 125 2019-11 Yes [id number] .125mg Take 1 [facility] mcg tablet 1-19 tablet by ity of 00:00: mouth [place] 00 daily. Medical Branch losartan 25 2019-11 Yes [id number] 12.5mg Take 0.5 [facility] mg tablet 1-19 tablets by ity of 00:00: mouth [place] 00 daily. Medical Branch spironolact 2019-11 Yes [id number] 12.5mg Take 0.5 [facility] one 25 mg 1-19 tablets by ity of tablet 00:00: mouth [place] 00 daily. Medical Branch digoxin 125 2019-11 Yes [id number] .125mg Take 1 [facility] mcg tablet 1-19 tablet by ity of 00:00: mouth [place] 00 daily. Medical Branch losartan 25 2019-11 Yes [id number] 12.5mg Take 0.5 [facility] mg tablet 1-19 tablets by ity of 00:00: mouth [place] 00 daily. Medical Branch spironolact 2019-11 Yes [id number] 12.5mg Take 0.5 [facility] one 25 mg 1-19 tablets by ity of tablet 00:00: mouth [place] 00 daily. Medical Branch digoxin 125 2019-11 Yes [id number] .125mg Take 1 [facility] mcg tablet 1-19 tablet by ity of 00:00: mouth [place] 00 daily. Medical Branch losartan 25 2019-11 Yes [id number] 12.5mg Take 0.5 [facility] mg tablet 1-19 tablets by ity of 00:00: mouth [place] 00 daily. Medical Branch spironolact 2019-11 Yes [id number] 12.5mg Take 0.5 [facility] one 25 mg 1-19 tablets by ity of tablet 00:00: mouth [place] 00 daily. Medical Branch digoxin 125 2019-11 Yes [id number] .125mg Take 1 [facility] mcg tablet 1-19 tablet by ity of 00:00: mouth [place] 00 daily. Medical Branch losartan 25 2019-11 Yes [id number] 12.5mg Take 0.5 [facility] mg tablet 1-19 tablets by ity of 00:00: mouth [place] 00 daily. Medical Branch spironolact 2019-11 Yes [id number] 12.5mg Take 0.5 [facility] one 25 mg 1-19 tablets by ity of tablet 00:00: mouth [place] 00 daily. Medical Branch digoxin 125 2019-11 Yes [id number] .125mg Take 1 [facility] mcg tablet 1-19 tablet by ity of 00:00: mouth [place] 00 daily. Medical Branch losartan 25 2019-11 Yes [id number] 12.5mg Take 0.5 [facility] mg tablet 1-19 tablets by ity of 00:00: mouth [place] 00 daily. Medical Branch spironolact 2019-11 Yes [id number] 12.5mg Take 0.5 [facility] one 25 mg 1-19 tablets by ity of tablet 00:00: mouth [place] 00 daily. Medical Branch digoxin 125 2019-11 Yes [id number] .125mg Take 1 [facility] mcg tablet 1-19 tablet by ity of 00:00: mouth [place] 00 daily. Medical Branch losartan 25 2019-11 Yes [id number] 12.5mg Take 0.5 [facility] mg tablet 1-19 tablets by ity of 00:00: mouth [place] 00 daily. Medical Branch spironolact 2019-11 Yes [id number] 12.5mg Take 0.5 [facility] one 25 mg 1-19 tablets by ity of tablet 00:00: mouth [place] 00 daily. Medical Branch digoxin 125 2019-11- No [id number] .125mg Take 1 [facility] mcg tablet 1-19 12-13 tablet by ity of 00:00: 00:00 mouth [place] 00 :00 daily. Medical Branch losartan 25 2019-11- No [id number] 12.5mg Take 0.5 [facility] mg tablet 12-04 tablets by ity of 00:00: 00:00 mouth [place] 00 :00 daily. Medical Branch spironolact 2019-11- No [id number] 12.5mg Take 0.5 [facility] one 25 mg 12-04 tablets by ity of tablet 00:00: 00:00 mouth [place] 00 :00 daily. Medical Branch digoxin 125 2019-11- No [id number] .125mg Take 1 [facility] mcg tablet 12-04 tablet by ity of 00:00: 00:00 mouth [place] 00 :00 daily. Medical Branch losartan 25 2019-11- No [id number] 12.5mg Take 0.5 [facility] mg tablet 12-04 tablets by ity of 00:00: 00:00 mouth [place] 00 :00 daily. Medical Branch spironolact 2019-11- No [id number] 12.5mg Take 0.5 [facility] one 25 mg 12-04 tablets by ity of tablet 00:00: 00:00 mouth [place] 00 :00 daily. Medical Branch digoxin 125 2019-11- No [id number] .125mg Take 1 [facility] mcg tablet 12-04 tablet by ity of 00:00: 00:00 mouth [place] 00 :00 daily. Medical Branch losartan 25 2019-11- No [id number] 12.5mg Take 0.5 [facility] mg tablet 12-04 tablets by ity of 00:00: 00:00 mouth [place] 00 :00 daily. Medical Branch spironolact 2019-11- No [id number] 12.5mg Take 0.5 [facility] one 25 mg 12-04 tablets by ity of tablet 00:00: 00:00 mouth [place] 00 :00 daily. Medical Branch digoxin 125 2019-11- No [id number] .125mg Take 1 [facility] mcg tablet 12-04 tablet by ity of 00:00: 00:00 mouth [place] 00 :00 daily for Medical 90 days. Branch spironolact 2019-11- No [id number] 12.5mg Take 0.5 [facility] one 25 mg 12-04 tablets by ity of tablet 00:00: 00:00 mouth [place] 00 :00 daily for Medical 90 days. Branch losartan 25 2019-11 2020- No [id number] 12.5mg Take 0.5 [facility] mg tablet 19 -18 tablets by ity of 00:00: 00:00 mouth [place] 00 :00 daily for Medical 90 days. Branch Sliding 2019-11 Yes Subcutaneo Univ ers Scale -18 us, TIDAC, ity of Insulin - 20:00: First dose [place] Lispro 00 (after Medical (HumaLOG) + last Branch Fsbg modificati Testing on) on Thu10/03/20 at 1400, Until Discontinu ed, Routine insulin 2019-11 2020- No 5U 5 Units, Unive rs lispro 12-03 Subcutaneo ity of (human) 18:45: 17:45 us, ONCE, [place] (HumaLOG 00 :00 1 dose, Medical U-100) Thu Branch injection 5 10/03/20 Units at 1245, Routine KCL 2019-11- No 20meq 20 mEq, Univers (KLOR-CON -18 18 Oral, ity of M20) tablet 18:15: 17:47 ONCE, 1 [place] 20 mEq 00 :00 dose, [facility] Medical 10/03/20 Branch at 1215, Routine KCL 2019-11 Yes 20meq 20 mEq, Univers (KLOR-CON -18 Oral, ity of M20) tablet 15:00: DAILY, [place] 20 mEq 00 First dose Medical on Thu Branch 10/03/20 at 0900, Until Discontinu ed, Routine potassium 2019-11 2020- No 20meq 20 mEq, IV [facility] chloride 20 12-03 Piggyback, i ty of mEq/100 mL 13:30: 13:40 ONCE, 1 [place] as (KCL) 20 00 :00 dose, [facility] Medica l mEq/100 mL 10/03/20 Branc h 20 mEq at 0730 piggyback apixaban 5 2019-11 Yes [id number] 5mg Take 1 Unive rs mg tablet -18 tablet by ity o f 00:00: mouth 2 [place] 00 (two) Medical times Branch daily. Indication s: prevention of thromboemb olism in paroxysmal atrial fibrillati on aspirin 81 2019- Yes [id number] 81mg Take 1 U nivers mg chewable 1-18 tablet by ity of tablet 00:00: mouth [place] 00 daily. Medical Branch atorvastati 2019-11 Yes [id number] 40mg Take 1 Univers n 40 mg 1-18 tablet by ity of tablet 00:00: mouth at [place] 00 bedtime. Medical Branch furosemide 2019-11 Yes [id number] 80mg Take 2 U nivers 40 mg 1-18 tablets by ity of tablet 00:00: mouth [place] 00 every Medical morning Branch and evening. metoprolol 2019-11 Yes [id number] 75mg Take 1.5 [facility] succinate 1-18 tablets by ity of XL 50 mg 24 00:00: mouth 2 [place] hr tablet 00 (two) Medical times Branch daily. nitroglycer 2019-[id number] 1 [facility] in 0.4 mg 1-18 tablet ity of sublingual 00:00: under the [place] tablet 00 tongue Medical every 5 Branch (five) minutes as needed for Chest pain. apixaban 5 2019-11 Yes [id number] 5mg Take 1 Unive rs mg tablet 1-18 tablet by ity o f 00:00: mouth 2 [place] 00 (two) Medical times Branch daily. Indication s: prevention of thromboemb olism in paroxysmal atrial fibrillati on aspirin 81 2019-11 Yes [id number] 81mg Take 1 U nivers mg chewable 1-18 tablet by ity of tablet 00:00: mouth [place] 00 daily. Medical Branch atorvastati 2019-11 Yes [id number] 40mg Take 1 [facility] n 40 mg 1-18 tablet by ity of tablet 00:00: mouth at [place] 00 bedtime. Medical Branch furosemide 2019-11 Yes [id number] 80mg Take 2 U nivers 40 mg 1-18 tablets by ity of tablet 00:00: mouth [place] 00 every Medical morning Branch and evening. metoprolol 2019-11 Yes [id number] 75mg Take 1.5 [facility] succinate 1-18 tablets by ity of XL 50 mg 24 00:00: mouth 2 [place] hr tablet 00 (two) Medical times Branch daily. nitroglycer 2019-[id number] 1 [facility] in 0.4 mg 1-18 tablet ity of sublingual 00:00: under the [place] tablet 00 tongue Medical every 5 Branch (five) minutes as needed for Chest pain. apixaban 5 2019-11 Yes [id number] 5mg Take 1 Unive rs mg tablet 1-18 tablet by ity o f 00:00: mouth 2 [place] 00 (two) Medical times Branch daily. Indication s: prevention of thromboemb olism in paroxysmal atrial fibrillati on aspirin 81 2019-11 Yes [id number] 81mg Take 1 U nivers mg chewable 1-18 tablet by ity of tablet 00:00: mouth [place] 00 daily. Medical Branch atorvastati 2019-11 Yes [id number] 40mg Take 1 [facility] n 40 mg 1-18 tablet by ity of tablet 00:00: mouth at [place] 00 bedtime. Medical Branch furosemide 2019-11 Yes [id number] 80mg Take 2 U nivers 40 mg 1-18 tablets by ity of tablet 00:00: mouth [place] 00 every Medical morning Branch and evening. metoprolol 2019-11 Yes [id number] 75mg Take 1.5 [facility] succinate 1-18 tablets by ity of XL 50 mg 24 00:00: mouth 2 [place] hr tablet 00 (two) Medical times Branch daily. nitroglycer 2019-[id number] 1 [facility] in 0.4 mg 1-18 tablet ity of sublingual 00:00: under the [place] tablet 00 tongue Medical every 5 Branch (five) minutes as needed for Chest pain. apixaban 5 2019-11 Yes [id number] 5mg Take 1 Unive rs mg tablet 1-18 tablet by ity o f 00:00: mouth 2 [place] 00 (two) Medical times Branch daily. Indication s: prevention of thromboemb olism in paroxysmal atrial fibrillati on aspirin 81 2019-11 Yes [id number] 81mg Take 1 U nivers mg chewable 1-18 tablet by ity of tablet 00:00: mouth [place] 00 daily. Medical Branch atorvastati 2019-11 Yes [id number] 40mg Take 1 Univers n 40 mg 1-18 tablet by ity of tablet 00:00: mouth at [place] 00 bedtime. Medical Branch furosemide 2019-11 Yes [id number] 80mg Take 2 U nivers 40 mg 1-18 tablets by ity of tablet 00:00: mouth [place] 00 every Medical morning Branch and evening. nitroglycer 2019-[id number] 1 [facility] in 0.4 mg 1-18 tablet ity of sublingual 00:00: under the [place] tablet 00 tongue Medical every 5 Branch (five) minutes as needed for Chest pain. apixaban 2019-11 Yes [id number] 5mg Take 1 Unive rs mg tablet 1-18 tablet by ity o f 00:00: mouth 2 [place] 00 (two) Medical times Branch daily. Indication s: prevention of thromboemb olism in paroxysmal atrial fibrillati on aspirin 81 2019-11 Yes [id number] 81mg Take 1 U nivers mg chewable 1-18 tablet by ity of tablet 00:00: mouth [place] 00 daily. Medical Branch atorvastati 2019-11 Yes [id number] 40mg Take 1 Univers n 40 mg 1-18 tablet by ity of tablet 00:00: mouth at [place] 00 bedtime. Medical Branch furosemide 2019-11 Yes [id number] 80mg Take 2 U nivers 40 mg 1-18 tablets by ity of tablet 00:00: mouth [place] 00 every Medical morning Branch and evening. nitroglycer 2019-[id number] 1 [facility] in 0.4 mg 1-18 tablet ity of sublingual 00:00: under the [place] tablet 00 tongue Medical every 5 Branch (five) minutes as needed for Chest pain. apixaban 2019-11 Yes [id number] 5mg Take 1 Unive rs mg tablet 1-18 tablet by ity o f 00:00: mouth 2 (two) Medical times Branch daily. Indication s: prevention of thromboemb olism in paroxysmal atrial fibrillati on aspirin 2019-11 Yes [id number] 81mg Take 1 U nivers mg chewable 1-18 tablet by ity of tablet 00:00: mouth [place] 00 daily. Medical Branch atorvastati 2019-11 Yes [id number] 40mg Take 1 Univers n 40 mg 1-18 tablet by ity of tablet 00:00: mouth at [place] 00 bedtime. Medical Branch furosemide 2019-11 Yes [id number] 80mg Take 2 U nivers 40 mg 1-18 tablets by ity of tablet 00:00: mouth [place] 00 every Medical morning Branch and evening. nitroglycer 2019-[id number] 1 [facility] in 0.4 mg 1-18 tablet ity of sublingual 00:00: under the [place] tablet 00 tongue Medical every 5 Branch (five) minutes as needed for Chest pain. apixaban 2019-11 Yes [id number] 5mg Take 1 Unive rs mg tablet 1-18 tablet by ity o f 00:00: mouth 2 [place] 00 (two) Medical times Branch daily. Indication s: prevention of thromboemb olism in paroxysmal atrial fibrillati on aspirin 81 2019-11 Yes [id number] 81mg Take 1 U nivers mg chewable 1-18 tablet by ity of tablet 00:00: mouth [place] 00 daily. Medical Branch atorvastati 2019-11 Yes [id number] 40mg Take 1 Univers n 40 mg 1-18 tablet by ity of tablet 00:00: mouth at [place] 00 bedtime. Medical Branch furosemide 2019-11 Yes [id number] 80mg Take 2 U nivers 40 mg 1-18 tablets by ity of tablet 00:00: mouth [place] 00 every Medical morning Branch and evening. nitroglycer 2019-[id number] 1 [facility] in 0.4 mg 1-18 tablet ity of sublingual 00:00: under the [place] tablet 00 tongue Medical every 5 Branch (five) minutes as needed for Chest pain. apixaban 2019-11 Yes [id number] 5mg Take 1 Unive rs mg tablet 1-18 tablet by ity o f 00:00: mouth 2 (two) Medical times Branch daily. Indication s: prevention of thromboemb olism in paroxysmal atrial fibrillati on nitroglycer 2019-[id number] 1 [facility] in 0.4 mg 1-18 tablet ity of sublingual 00:00: under the [place] tablet 00 tongue Medical every 5 Branch (five) minutes as needed for Chest pain. apixaban 2019-11 Yes [id number] 5mg Take 1 Unive rs mg tablet 1-18 tablet by ity o f 00:00: mouth 2 (two) Medical times Branch daily. Indication s: prevention of thromboemb olism in paroxysmal atrial fibrillati on nitroglycer 2019-[id number] 1 [facility] in 0.4 mg 1-18 tablet ity of sublingual 00:00: under the [place] tablet 00 tongue Medical every 5 Branch (five) minutes as needed for Chest pain. apixaban 2019-11 Yes [id number] 5mg Take 1 Unive rs mg tablet 1-18 tablet by ity o f 00:00: mouth 2 (two) Medical times Branch daily. Indication s: prevention of thromboemb olism in paroxysmal atrial fibrillati on nitroglycer 2019-[id number] 1 [facility] in 0.4 mg 1-18 tablet ity of sublingual 00:00: under the [place] tablet 00 tongue Medical every 5 Branch (five) minutes as needed for Chest pain. apixaban 2019-11 Yes [id number] 5mg Take 1 Unive rs mg tablet 1-18 tablet by ity o f 00:00: mouth 2 [place] 00 (two) Medical times Branch daily. Indication s: prevention of thromboemb olism in paroxysmal atrial fibrillati on nitroglycer 2019-[id number] 1 [facility] in 0.4 mg 1-18 tablet ity of sublingual 00:00: under the [place] tablet 00 tongue Medical every 5 Branch (five) minutes as needed for Chest pain. apixaban 2019-11 Yes [id number] 5mg Take 1 Unive rs mg tablet 1-18 tablet by ity o f 00:00: mouth 2 [place] (two) Medical times Branch daily. Indication s: prevention of thromboemb olism in paroxysmal atrial fibrillati on nitroglycer 2019-[id number] 1 [facility] in 0.4 mg 1-18 tablet ity of sublingual 00:00: under the [place] tablet 00 tongue Medical every 5 Branch (five) minutes as needed for Chest pain. apixaban 2019-11 Yes [id number] 5mg Take 1 Unive rs mg tablet 1-18 tablet by ity o f 00:00: mouth 2 [place] (two) Medical times Branch daily. Indication s: prevention of thromboemb olism in paroxysmal atrial fibrillati on aspirin 81 2019-11 Yes [id number] 81mg Take 1 U nivers mg chewable 1-18 tablet by ity of tablet 00:00: mouth [place] 00 daily. Medical Branch apixaban 2019-11 Yes [id number] 5mg Take 1 Un[facility] rs mg tablet 1-18 tablet by ity o f 00:00: mouth 2 [place] 00 (two) Medical times Branch daily. Indication s: prevention of thromboemb olism in paroxysmal atrial fibrillati on nitroglycer 2019-[id number] 1 [facility] in 0.4 mg 1-18 tablet ity of sublingual 00:00: under the [place] tablet 00 tongue Medical every 5 Branch (five) minutes as needed for Chest pain. atorvastati 2019-11 Yes [id number] 40mg Take 1 [facility] n 40 mg 1-18 tablet by ity of tablet 00:00: mouth at [place] 00 bedtime. Medical Branch apixaban 2019-11 Yes [id number] 5mg Take 1 Un[facility] rs mg tablet 1-18 tablet by ity o f 00:00: mouth 2 [place] 00 (two) Medical times Branch daily. Indication s: prevention of thromboemb olism in paroxysmal atrial fibrillati on nitroglycer 2019-[id number] 1 [facility] in 0.4 mg 1-18 tablet ity of sublingual 00:00: under the [place] tablet 00 tongue Medical every 5 Branch (five) minutes as needed for Chest pain. apixaban 2019-11 Yes [id number] 5mg Take 1 Unive rs mg tablet 1-18 tablet by ity o f 00:00: mouth 2 [place] 00 (two) Medical times Branch daily. Indication s: prevention of thromboemb olism in paroxysmal atrial fibrillati on furosemide 2019-11 Yes [id number] 80mg Take 2 U nivers 40 mg 1-18 tablets by ity of tablet 00:00: mouth [place] 00 every Medical morning Branch and evening. nitroglycer 2019-[id number] 1 [facility] in 0.4 mg 1-18 tablet ity of sublingual 00:00: under the [place] tablet 00 tongue Medical every 5 Branch (five) minutes as needed for Chest pain. apixaban 2019-11 Yes [id number] 5mg Take 1 Un[facility] rs mg tablet 1-18 tablet by ity o f 00:00: mouth 2 [place] 00 (two) Medical times Branch daily. Indication s: prevention of thromboemb olism in paroxysmal atrial fibrillati on nitroglycer 2019-[id number] 1 [facility] in 0.4 mg 1-18 tablet ity of sublingual 00:00: under the [place] tablet 00 tongue Medical every 5 Branch (five) minutes as needed for Chest pain. metoprolol 2019-11 Yes [id number] 75mg Take 1.5 [facility] succinate 1-18 tablets by ity of XL 50 mg 24 00:00: mouth 2 [place] as hr tablet 00 (two) Medical times Branch daily. apixaban 2019-11 Yes [id number] 5mg Take 1 Unive rs mg tablet 1-18 tablet by ity o f 00:00: mouth 2 [place] 00 (two) Medical times Branch daily. Indication s: prevention of thromboemb olism in paroxysmal atrial fibrillati on nitroglycer 2019-[id number] 1 [facility] in 0.4 mg 1-18 tablet ity of sublingual 00:00: under the [place] tablet 00 tongue Medical every 5 Branch (five) minutes as needed for Chest pain. nitroglycer 2019-[id number] 1 [facility] in 0.4 mg 1-18 tablet ity of sublingual 00:00: under the [place] tablet 00 tongue Medical every 5 Branch (five) minutes as needed for Chest pain. apixaban 5 2019-11 Yes [id number] 5mg Take 1 Unive rs mg tablet 1-18 tablet by ity o f 00:00: mouth 2 [place] 00 (two) Medical times Branch daily. Indication s: prevention of thromboemb olism in paroxysmal atrial fibrillati on nitroglycer 2019-[id number] 1 [facility] in 0.4 mg 1-18 tablet ity of sublingual 00:00: under the [place] tablet 00 tongue Medical every 5 Branch (five) minutes as needed for Chest pain. aspirin 81 2019-11- No [id number] 81mg Take 1 [facility] mg chewable -12-13 tablet by it y of tablet 00:00: 00:00 mouth [place] 00 :00 daily. Medical Branch atorvastati 2019-11- No [id number] 40mg Take 1 [facility] n 40 mg -12-13 tablet by ity of tablet 00:00: 00:00 mouth at [place] 00 :00 bedtime. Medical Branch furosemide 2019-11- No [id number] 80mg Take 2 [facility] 40 mg 12-03 tablets by ity of tablet 00:00: 00:00 mouth [place] 00 :00 every Medical morning Branch and evening. aspirin 81 2019-11- No [id number] 81mg Take 1 [facility] mg chewable -12-13 tablet by it y of tablet 00:00: 00:00 mouth [place] 00 :00 daily. Medical Branch atorvastati 2019-11- No [id number] 40mg Take 1 [facility] n 40 mg -18 12-13 tablet by ity of tablet 00:00: 00:00 mouth at [place] 00 :00 bedtime. Medical Branch furosemide 2019-11- No [id number] 80mg Take 2 [facility] 40 mg -18 12-13 tablets by ity of tablet 00:00: 00:00 mouth [place] 00 :00 every Medical morning Branch and evening. aspirin 81 2019-11- No [id number] 81mg Take 1 [facility] mg chewable 12-03 tablet by it y of tablet 00:00: 00:00 mouth [place] 00 :00 daily. Medical Branch atorvastati 2019-11- No [id number] 40mg Take 1 [facility] n 40 mg 12-03 tablet by ity of tablet 00:00: 00:00 mouth at [place] 00 :00 bedtime. Medical Branch furosemide 2019-11 No [id number] 80mg Take 2 [facility] 40 mg 12-03 tablets by ity of tablet 00:00: 00:00 mouth [place] 00 :00 every Medical morning Branch and evening. metoprolol 2019-11 No [id number] 75mg Take 1.5 Univers succinate 12-03-25 tablets by ity of XL 50 mg 24 00:00: 00:00 mouth 2 [place] hr tablet 00 :00 (two) Medical times Branch daily. metoprolol 2019-11 No [id number] 75mg Take 1.5 [facility] succinate 12-0325 tablets by ity of XL 50 mg 24 00:00: 00:00 mouth 2 [place] hr tablet 00 :00 (two) Medical times Branch daily. apixaban 5 2019-11- No [id number] 5mg Take 1 Univ ers mg tablet 12-03 tablet by ity of 00:00: 00:00 mouth 2 [place] 00 :00 (two) Medical times Branch daily for 90 days. Indication s: prevention of thromboemb olism in paroxysmal atrial fibrillati on aspirin 81 2019-11- No [id number] 81mg Take 1 [facility] mg chewable 12-03 tablet by it y of tablet 00:00: 00:00 mouth [place] 00 :00 daily for Medical 90 days. Branch atorvastati 2019-11- No [id number] 40mg Take 1 Univers n 40 mg -10-03 tablet by ity of tablet 00:00: 00:00 mouth at [place] 00 :00 bedtime Medical for 90 Branch days. furosemide 2019-11- No [id number] 80mg Take 1 [facility] 80 mg -03 10- tablet by ity of tablet 00:00: 00:00 mouth [place] 00 :00 every Medical morning Branch and evening for 90 days. metoprolol 2019-11- No [id number] 75mg Take 3 [facility] succinate 12-03 tablets by ity of XL 25 mg 24 00:00: 00:00 mouth 2 [place] hr tablet 00 :00 (two) Medical times Branch daily for 90 days. nitroglycer 2019-11- No [id number] .4mg Place 1 [facility] in 0.4 mg 12-03 tablet ity of sublingual 00:00: 00:00 under the [place] tablet 00 :00 tongue Medical every 5 Branch (five) minutes as needed for Chest pain. Sliding 2019-11- No Subcutaneo Uni vers Scale 12-02 us, TID, ity of Insulin - 20:00: 19:16 First dose [place] Lispro 00 :39 (after Medical (HumaLOG) + last Branch Fsbg modificati Testing on) on Thu10/02/20 at 1400, Until Discontinu ed, Routine insulin NPH 2019-11 No 40U 40 Units, Univers and regular 12-02 Subcutaneo i ty of human 70-30 15:30: 19:16 , [place] (HUMULIN 00 :39 QAM+PM, Medical 70-30 U-100 First dose Br anch INSULIN) (after 100 unit/mL last (70-30) modificati injection on) on Thu 40 Units 10/02/20 at 0930, Until Discontinu ed, Routine furosemide 2019-11 Yes 80mg 80 mg, Unive rs (LASIX) 12-02 Oral, ity of tablet 80 15:00: QAM+PM, [place] mg 00 First dose Medical on [facility] 10/02/20 at 0900, Until Discontinu ed, Routine spironolact 2019-11- No 12.5mg 12.5 mg, Univers one 12-02 Oral, ity of (ALDACTONE) 15:00: 14:16 DAILY, [place] as half tablet 00 :21 First dose Me dical 12.5 mg on [facility] 10/02/20 at 0900, Until Discontinu ed, Routine furosemide 2019-11- No 80mg 80 mg, IV U nivers (LASIX) 12-01 Push, TID, ity o f injection 20:00: 14:59 First dose [place] 80 mg 00 :44 (after Medical last Branch modificati on) on 10/01/20 at 1400, Until Discontinu ed, ANTON tc 2019-11- No 35mCi 35 Univers 99m-tetrofo 12-01 millicurie i ty of smin 19:15: 19:05 , [place] (MYOVIEW) 00 :00 Intravenou Medi trinh injection s, ONCE, 1 Bran ch 35 dose, Mon millicurie 10/01/20 at 1315, Routine insulin NPH 2019-11- No 40U 40 Units, Univers and regular 12-01 Subcutaneo i ty of human 70-30 15:00: 15:21 , [place] (HUMULIN 00 :14 QAM+PM, Medical 70-30 U-100 First dose Br anch INSULIN) on Thu 100 unit/mL 10/01/20 (70-30) at 0900, injection Until 40 Units Discontinu ed, Routine KCL 2019-11 No 20meq 20 mEq, Univers (KLOR-CON 12-01 Oral, ity of M20) tablet 14:15: 13:43 ONCE, 1 [place] 20 mEq 00 :00 dose, [facility] Medical 10/01/20 Branch at 0815, Routine magnesium 2019-11- No 2g 2 g, IV Univ ers sulfate in 12-01 Piggyback, it y of water 2 14:00: 13:42 ONCE, 1 [place] gram/50 mL 00 :00 dose, [facility] Medi trinh (4 %) 10/01/20 Branch infusion 2 at 0800, g Routine metoprolol 2019-11 Yes 75mg 75 mg, Unive rs succinate 12-01 Oral, BID, ity of [place] (TOPROL 02:00: First dose [place] XL) tablet 00 (after Medical 75 mg last Branch modificati on) on 09/30/20 at 2000, Until Discontinu ed, Routine sulfur 2019-11- No 5mL 5 mL, Univers hexafluorid 11-30 Intravenou i ty of e microsphr 18:30: 16:00 s, ONCE, 1 [place] (LUMASON) 00 :00 dose, Sun Medic al injection 5 11/15/20 Bran ch mL at 1230, Routine
archeology faculty member approving Restricted medication : SHANITA EH, TAREQ digoxin 2019-11 Yes 125ug 125 mcg, Unive rs (LANOXIN) 15 Oral, ity of tablet 125 15:45: DAILY, [place] mcg 00 First dose Medical on [place] [facility] 09/30/20 at 0945, Until Discontinu ed, Routine metoprolol 2019-11- No 25mg 25 mg, Univ ers succinate 11-30 Oral, ity of XL (TOPROL 15:28: 15:46 ONCE, 1 [place] as XL) tablet 00 :00 dose, [place] Medi trinh 25 mg 09/30/20 Branch at 0930, Routine Polyethylen 2019-11- No 17g 17 g, Univ ers e Glycol 11-30 Oral, BID, ity of 3350 14:15: 20:22 First dose [place] (MIRALAX) 00 :36 on [place] Medical powder 17 g 09/30/20 Bran ch at 0815, Until Discontinu ed, Routine insulin 2019-11- No 16U 16 Units, [facility] ers glargine 11-30 Subcutaneo ity of (LANTUS 03:00: 14:16 us, [facility], [place] U-100) 00 :00 First dose Medical injection on [facility] [[email or web address] Branch 16 Units 09/29/20 at 2100, Until Discontinu ed, Routine apixaban 2019-11 Yes 5mg 5 mg, Univers (ELIQUIS) 11-30 Oral, BID, ity of tablet 5 mg 02:00: First dose [place] 00 on [facility] [[email or web address]] Medical 09/29/20 Branch at 2000, Until Discontinu ed, Routine furosemide 2019-11- No 80mg 80 mg, IV U nivers (LASIX) 11-30 Push, ity of injection 02:00: 17:11 Q12H, [place] 80 mg 00 :54 First dose Medical (after Branch last modificati on) on [facility] [[email or web address]] 09/29/20 at 2000, Until Discontinu ed, ANTON metoprolol 2019-11- No 50mg 50 mg, Univ ers succinate 11-30 Oral, BID, ity of XL (TOPROL 02:00: 15:28 First dose [place] XL) tablet 00 :45 (after Medical 50 mg last Branch modificati on) on [facility] [[email or web address]] 09/29/20 at 2000, Until Discontinu ed, Routine insulin 2019-11- No 4U 4 Units, Unive rs lispro -16 Subcutaneo ity of (human) 23:00: 14:16 us, TID [place] (HumaLOG 00 :00 MEALS, Medical U-100) First dose Branch injection 4 on Sat Units 09/29/20 at 1700, Until Discontinu ed, Routine Sliding 2019-11- No Subcutaneo Uni vers Scale 1-14 10-02 us, Q4H, ity of Insulin - 22:30: 14:18 First dose [place] Lispro 00 :31 on [facility] [[email or web address]] Medical (HumaLOG) + 09/29/20 Bran ch Fsbg at 1630, Testing Until Discontinu ed, Routine metoprolol 2019-11- No 12.5mg 12.5 mg, Univers succinate 11-29 Oral, ity of XL (TOPROL 17:04: 19:00 ONCE, 1 [place] as XL) tablet 00 :00 dose, Sat Medi trinh 12.5 mg 09/29/20 Branch at 1115, Routine furosemide 2019-11- No 40mg 40 mg, Univ ers (LASIX) 11-29 Slow IV ity of injection 15:41: 17:11 Push, [place] 40 mg 00 :00 ONCE, 1 Medical dose, Sat Branch 09/29/20 at 0945, Routine losartan 2019-11 Yes 12.5mg 12.5 mg, Uni vers (COZAAR) 11-29 Oral, ity of tablet 12.5 15:00: DAILY, [place] mg 00 First dose Medical on [facility] [[email or web address]] Branch 09/29/20 at 0900, Until Discontinu ed, Routine Sliding 2019-11- No Subcutaneo Uni vers Scale -14 09-29 us, TID ity of Insulin - 14:00: 22:24 MEALS+HS, [place] Lispro 00 :01 First dose Medical (HumaLOG) + (after Branch Fsbg last Testing modificati on) on [facility] [[email or web address]] 09/29/20 at 0800, Until Discontinu ed, Routine metoprolol 2019-11- No 37.5mg 37.5 mg, Univers succinate 11-29 Oral, BID, ity of XL (TOPROL 14:00: 17:04 First dose [place] XL) tablet 00 :42 (after Medical 37.5 mg last Branch modificati on) on 09/29/20 at 0800, Until Discontinu ed, Routine heparin STD 2019-11- No 1000U/h 1,000 U nivers 25,000 -14 11-14 Units/hr ity of units/250ml 13:33: 17:07 (10 [place] in NS 38 :11 mL/hr), IV Medical Infusion, Branch TITRATE, Parameters in Admin. Instr., Starting 09/29/20 at 0733, For 7 hours
C AUTION - If LMWH given in ER, AVOID bolus and start next dose/drip 12 hrs after ER dosage.&nb sp; M ust program rate using programmab le infusion pump.&nbsp ;&nbsp ;Check with the ordering provider first prior to any administra tion should the patient be on existing/a dditional anticoagul ant therapy. Rang e, Dosing and Testing: &nbs p;FOR [place], [facility], AND [facility] ONLY &nbs p; - aPTT < 35: & nbsp;Bolus 5000 units, increase rate 300 units/hr&n bsp; - aPTT 35-44:&nbs p; Jakob jesus 3000 units, increase rate 200 units/hr&n bsp; - aPTT 45-54:&nbs p; In crease rate 100 units/hr&n bsp; - aPTT 55-85:&nbs p; NO CHANGE&nbs p; - aPTT 86-95:&nbs p; De crease rate 100 units/hr&n bsp; - aPTT 96-120:&nb sp; H old 30 minutes, decrease rate 150 units/hr&n bsp; - aPTT > 120: Hold 60 minutes, decrease rate 200 units/hr&n bsp; Check aPTT 6 hours after initiation , then Q6H after every change, aPTT Q12H once therapeuti c levels are reached.&n bsp; &nbs p; __ &n bsp;FOR [facility] ONLY - aPTT < 40: & amp;nbsp;B olus 5000 units, increase rate 300 units/hr&n bsp; - aPTT 40-49:&nbs p; Jakob jesus 3000 units, increase rate 200 units/hr&n bsp; - aPTT 50-59:&nbs p; In crease rate 100 units/hr&n bsp; - aPTT 60-85:&nbs p; NO CHANGE&nbs p; - aPTT 86-95:&nbs p; De crease rate 100 units/hr&n bsp; - aPTT 96-120:&nb sp; H old 30 minutes, decrease rate 150 units/hr&n bsp; - aPTT > 120: Hold 60 minutes, decrease rate 200 units/hr&n bsp; Check aPTT 6 hours after initiation , then Q6H after every change, aPTT Q12H once therapeuti c levels are reached.&n bsp; DO NOT ADJUST INITIAL BOLUS OR INITIAL INFUSION RATE.
KCL 2019-11 2020- No 20meq 20 mEq, Univers (KLOR-CON 11-29 Oral, ity of M20) tablet 12:00: 11:35 ONCE, 1 [place] 20 mEq 00 :00 dose, Sat Medical 09/29/20 Branch at 0600, Routine acetaminoph 2019-11 Yes 325mg 325 mg, Un win en 1-14 Oral, ity of (TYLENOL) 00:30: Q6HPRN, [place] tablet 325 33 Starting Medic al mg Fri Branch 09/28/20 at 1830, Until Discontinu ed, Routine, headache heparin 2019-11- No Slow IV Univer s 1,000 11-28 Push, ity of unit/mL 18:32: 18:32 TITRATE - [place] injection 00 :00 FOR Medical PROCEDURE Branch USE, 1 dose, Starting Thu09/28/20 at 1232, Until Thu09/28/20 at 1232, Routine nitroglycer 2019-11- No Intravenou Univers in (TRIDIL) 11-28 s, TITRATE i ty of 2 mg in 10 18:32: 18:32 - FOR [place] mL D5W for 00 :00 PROCEDURE Medi trinh Cardiac USE, 1 Branch Cath dose, Starting Thu09/28/20 at 1232, Until Thu09/28/20 at 1232, Routine midazolam 2019-11- No IV Push, Uni vers (VERSED) 11-28 TITRATE - ity o f injection 18:31: 18:31 FOR [place] 00 :00 PROCEDURE Medical USE, 1 Branch dose, Starting Thu09/28/20 at 1231, Until Thu09/28/20 at 1231, Routine FENTanyl PF 2019-11- No Slow IV Un win (SUBLIMAZE 11-28 Push, ity of (PF)) 18:28: 18:28 TITRATE - [place] injection 20 :20 FOR Medical PROCEDURE Branch USE, 1 dose, Starting Thu09/28/20 at 1228, Until Thu09/28/20 at 1228, Routine lidocaine 2019-11- No Infiltrati U nivers 1% (PF) 11-28 on, ity of (XYLOCAINE) 18:14: 18:14 TITRATE - [place] injection 00 :00 FOR Medical PROCEDURE Branch USE, 1 dose, Starting Thu09/28/20 at 1214, Until Thu09/28/20 at 1214, Routine FENTanyl PF 2019-11- No Slow IV Un win (SUBLIMAZE 11-28 Push, ity of (PF)) 18:00: 18:00 TITRATE - [place] injection 00 :00 FOR Medical PROCEDURE Branch USE, 1 dose, Starting Thu09/28/20 at 1200, Until Thu09/28/20 at 1200, Routine midazolam 2019-11 IV Push, Uni vers (VERSED) 11-28 TITRATE - ity o f injection 18:00: 18:00 FOR [place] 00 :00 PROCEDURE Medical USE, 1 Branch dose, Starting Thu09/28/20 at 1200, Until Thu09/28/20 at 1200, Routine metoprolol 2019-11 No 25mg 25 mg, Univ ers succinate 11-28 Oral, BID, ity of XL (TOPROL 15:15: 13:32 First dose [place] XL) tablet 00 :40 on Thu Medical 25 mg 09/28/20 Branch at 0915, Until Discontinu ed, Routine aspirin 2019-11 Yes 81mg 81 mg, Univers chewable 11-28 Oral, ity of tablet 81 15:00: DAILY, [place] mg 00 First dose Medical on Thu09/28/20 at 0900, Until Discontinu ed, Routine pantoprazol 2019-11 Yes 40mg 40 mg, Univ ers e 11-28 Oral, ity of (PROTONIX) 15:00: DAILY, [place] EC tablet 00 First dose Medi trinh 40 mg on Thu Branch 09/28/20 at 0900, Until Discontinu ed, Routine atorvastati 2019-11 Yes 40mg 40 mg, Univ ers n (LIPITOR) 11-28 Oral, QHS, it y of tablet 40 08:15: First dose [place] mg 00 on Thu Medical 09/28/20 Branch at 0215, Until Discontinu ed, Routine nitroglycer 2019-11 Yes .4mg 0.4 mg, Uni vers in 11-28 Sublingual ity of (NITROSTAT) 08:02: , Q5MIN [place] as sublingual 39 PRN, Medical tablet 0.4 Starting Branc h mg Thu09/28/20 at 0202, Until Discontinu ed, Routine, Chest pain furosemide 2019-11 No 40mg 40 mg, IV U nivers (LASIX) 11-28 Push, ity of injection 08:00: 15:41 Q12H, [place] 40 mg 00 :59 First dose Medical (after Branch last reorder) on Thu09/28/20 at 0200, Until Discontinu ed, ANTON Sliding 2019-11 Subcutaneo Uni vers Scale 11-28 us, Q6H ity of Insulin - 06:00: 13:30 ABX, First [place] Lispro 00 :59 dose on Medical (HumaLOG) + Fri Branch Fsbg 09/28/20 Testing at 0000, Until Discontinu ed, Routine metoprolol 2019-11- No 25mg 25 mg, Univ ers tartrate 11-28 Oral, BID, ity of (LOPRESSOR) 05:00: 15:12 First dose [place] tablet 25 00 :41 on [place] Medical mg 09/27/20 Branch at 2300, Until Discontinu ed, Routine heparin STD 2019-11- No 1000U/h 1,000 U nivers 25,000 11-28 Units/hr ity of units/250ml 04:46: 13:33 (10 [place] in NS 23 :56 mL/hr), IV Medical Infusion, Branch TITRATE, Parameters in Admin. Instr., Starting [place] 09/27/20 at 2246
CA UTION - If LMWH given in ER, AVOID bolus and start next dose/drip 12 hrs after ER dosage.&nb sp; M ust program rate using programmab le infusion pump.&nbsp ; Leticia ck with the ordering provider first prior to any administra tion should the patient be on existing/a dditional anticoagul ant therapy. Rang e, Dosing and Testing: &nbs p;FOR [facility], AND [facility] ONLY - aPTT < 35: & nbsp;Bolus 5000 units, increase rate 300 units/hr&n bsp; - aPTT 35-44:&nbs p; Jakob jesus 3000 units, increase rate 200 units/hr&n bsp; - aPTT 45-54:&nbs p; In crease rate 100 units/hr&n bsp; - aPTT 55-85:&nbs p; NO CHANGE&nbs p; - aPTT 86-95:&nbs p; De crease rate 100 units/hr&n bsp; - aPTT 96-120:&nb sp; H old 30 minutes, decrease rate 150 units/hr&n bsp; - aPTT > 120:&n bsp; Hold 60 minutes, decrease rate 200 units/hr&n bsp; Check aPTT 6 hours after initiation , then Q6H after every change, aPTT Q12H once therapeuti c levels are reached.&n bsp;&n bsp; ____ &amp ;nbsp;&nbs p;FOR [facility] ONLY - aPTT < 40: & nbsp;Bolus 5000 units, increase rate 300 units/hr&n bsp; - aPTT 40-49:&nbs p; Jakob jesus 3000 units, increase rate 200 units/hr&n bsp; - aPTT 50-59:&nbs p; In crease rate 100 units/hr&a mp;nbsp; - aPTT 60-85:&nbs p; NO CHANGE&nbs p; - aPTT 86-95:&nbs p; De crease rate 100 units/hr&n bsp; - aPTT 96-120:&nb sp; H old 30 minutes, decrease rate 150 units/hr&n bsp; - aPTT > 120: Hold 60 minutes, decrease rate 200 units/hr&a mp;nbsp;&n bsp;Check aPTT 6 hours after initiation , then Q6H after every change, aPTT Q12H once therapeuti c levels are reached.&n bsp; DO NOT ADJUST INITIAL BOLUS OR INITIAL INFUSION RATE.
aspirin 2019-11- No 325mg 325 mg, Unive rs tablet 325 11-28 Oral, ity of mg 04:15: 03:38 ONCE, 1 [place] 00 :00 dose, [facility] Medical 09/27/20 Branch at 2215, Routine iohexol 2019-11- No 100mL 100 mL, Unive rs (OMNIPAQUE 11-27 Intravenou it y of 350 21:45: 21:45 s, ONCE, 1 [place] BULK-100 00 :00 dose, [facility] Medica l mL) 09/27/20 Branch injection at 1545, 100 mL Routine furosemide 2019-11- No 40mg 40 mg, IV U nivers (LASIX) 11-27 Push, ity of injection 21:45: 21:04 ONCE, 1 [place] 40 mg 00 :00 dose, [facility] Medical 09/27/20 Branch at 1545, ANTON heparin 2019-11- No 1000U/h 1,000 Unive rs 25,000 11-27 Units/hr ity of Units/250 21:38: 04:46 (10 [place] mL 12 :34 mL/hr), IV Medical (Premixed Infusion, Branc h Bag) in TITRATE, 0.45 % NS Parameters in Admin. Instr., Starting [facility] 09/27/20 at 1538
CA UTION - If LMWH given in ER, AVOID bolus and start next dose/drip 12 hrs after ER dosage.&nb sp; M ust program rate using programmab le infusion pump.&nbsp ; Leticia ck with the ordering provider first prior to any administra tion should the patient be on existing/a dditional anticoagul ant therapy. Rang e, Dosing and Testing: &nbs p;FOR [facility], [facility], AND [facility] ONLY - aPTT < 35: & nbsp;Bolus 5000 units, increase rate 300 units/hr&n bsp; - aPTT 35-44:&nbs p; Jakob jesus 3000 units, increase rate 200 units/hr&n bsp; - aPTT 45-54:&nbs p; In crease rate 100 units/hr&n bsp; - aPTT 55-85:&nbs p; NO CHANGE&nbs p; - aPTT 86-95:&nbs p; De crease rate 100 units/hr&n bsp; - aPTT 96-120:&nb sp; H old 30 minutes, decrease rate 150 units/hr&n bsp; - aPTT > 120:&n bsp; Hold 60 minutes, decrease rate 200 units/hr&n bsp; Check aPTT 6 hours after initiation , then Q6H after every change, aPTT Q12H once therapeuti c levels are reached.&n bsp;&n bsp; ____ &amp ;nbsp;&nbs p;FOR [facility] ONLY - aPTT < 40: & nbsp;Bolus 5000 units, increase rate 300 units/hr&n bsp; - aPTT 40-49:&nbs p; Jakob jesus 3000 units, increase rate 200 units/hr&n bsp; - aPTT 50-59:&nbs p; In crease rate 100 units/hr&a mp;nbsp; - aPTT 60-85:&nbs p; NO CHANGE&nbs p; - aPTT 86-95:&nbs p; De crease rate 100 units/hr&n bsp; - aPTT 96-120:&nb sp; H old 30 minutes, decrease rate 150 units/hr&n bsp; - aPTT > 120: Hold 60 minutes, decrease rate 200 units/hr&a mp;nbsp;&n bsp;Check aPTT 6 hours after initiation , then Q6H after every change, aPTT Q12H once therapeuti c levels are reached.&n bsp; DO NOT ADJUST INITIAL BOLUS OR INITIAL INFUSION RATE.
heparin 2019-11 2020- No 4000U 4,000 Univers 1000 -12 11-12 Units, IV ity of unit/mL 20:45: 20:45 Push, [place] injection 00 :00 ONCE, 1 Medical Soln 4,000 dose, [place] Bran ch Units 09/27/20 at 1445, Routine amiodarone amiodarone No amiodarone [place] 200 mg 200 mg 200 mg Family tablet TAKE tablet TAKE tablet [facility] 1 TABLET BY 1 TABLET BY TAKE 1 e MOUTH ONCE MOUTH ONCE TABLET BY DAILY DAILY MOUTH ONCE DAILY aspirin 81 aspirin 81 No 1capsul Q1D aspirin 81 [place] mg capsule mg capsule e(s) mg capsule Family Take 1 Take 1 Take 1 Practic capsule capsule capsule e every day every day every day by oral by oral by oral route. route. route. Basaglar Basaglar No Basaglar Hilario jada MarcusPen MarcusPen [facility] U-100 U-100 U-100 Practic Insulin 100 Insulin 100 Insulin e unit/mL (3 unit/mL (3 100 mL) mL) unit/mL (3 subcutaneou subcutaneou mL) s INJ 48 s INJ 48 subcutaneo UNITS IN UNITS IN us INJ 48 THE MORNING THE MORNING UNITS IN AND AND THE INCREASE INCREASE MORNING DIRECTED. DIRECTED. AND TDD50 TDD50 INCREASE DIRECTED. TDD50 BD BD No BD [facility] Ultra-Fine Ultra-Fine Ultra-Fine Family Short Pen Short Pen Short Pen Practic Needle 31 Needle 31 Needle 31 e gauge x gauge x gauge x 03/31" USE 03/31" USE 03/31" USE DIRECTED DIRECTED FIVE TIMES FIVE TIMES DIRECTED DAILY DAILY FIVE TIMES DAILY Eliquis 5 Eliquis 5 No Eliquis 5 [facility] mg tablet mg tablet mg tablet Family Take 1 Take 1 Take 1 Practic tablet tablet tablet e twice a day twice a day twice a by oral by oral day by route. route. oral route. FreeStyle FreeStyle No FreeStyle [facility] Tobin 2 Tobin 2 Tobin 2 Family Sensor kit Sensor kit Sensor kit Practic USE USE USE e DIRECTED DIRECTED DIRECTED CHANGE CHANGE CHANGE EVERY 14 EVERY 14 EVERY 14 DAYS DAYS DAYS furosemide furosemide No furosemide [facility] 80 mg 80 mg 80 mg Family tablet TAKE tablet TAKE tablet Practic 1 TABLET BY 1 TABLET BY TAKE 1 e MOUTH TWICE MOUTH TWICE TABLET BY DAILY DAILY MOUTH TWICE DAILY Jardiance Jardiance No 1 Q1D Jardiance [facility] 25 mg 25 mg 25 mg Family tablet Take tablet Take tablet Practic 1 tablet 1 tablet Take 1 e every day every day tablet by oral by oral every day route in route in by oral the morning the morning route in for 90 for 90 the days. days. morning for 90 days. levofloxaci levofloxaci No levofloxac [facility] n 250 mg n 250 mg in 250 mg Fa eliz tablet TAKE tablet TAKE tablet Practic 1 TABLET BY 1 TABLET BY TAKE 1 e MOUTH ONCE MOUTH ONCE TABLET BY DAILY WITH DAILY WITH MOUTH ONCE DINNER DINNER DAILY WITH DINNER losartan 25 losartan 25 No losartan [facility] mg tablet mg tablet 25 mg Fami ly TAKE 1 TAKE 1 tablet Practic TABLET BY TABLET BY TAKE 1 e MOUTH ONCE MOUTH ONCE TABLET BY DAILY DAILY MOUTH ONCE DAILY metoprolol metoprolol No metoprolol [facility] succinate succinate succinate Family Pract[facility] e Novolog Novolog No Novolog [facility] Flexpen Flexpen Flexpen Family U-100 U-100 U-100 Practic Insulin Insulin Insulin e aspart 100 aspart 100 aspart 100 unit/mL (3 unit/mL (3 unit/mL (3 mL) mL) mL) subcutaneou subcutaneou subcutaneo s Give s Give us Give before before before meals for meals for meals for glucose glucose glucose >200 >200 >200 using CF using CF using CF 1:20: TDD 1:20: TDD 1:20: TDD 50 50 50 Ozempic 1 Ozempic 1 No Ozempic 1 [facility] mg/dose (4 mg/dose (4 mg/dose (4 Family mg/3 mL) mg/3 mL) mg/3 mL) Pra ctic subcutaneou subcutaneou subcutaneo e s pen s pen us pen injector injector injector INJECT 1MG INJECT 1MG INJECT 1MG SUBCUTANEOU SUBCUTANEOU SUBCUTANEO SLY ONCE A SLY ONCE A USLY ONCE WEEK WEEK A WEEK Ozempic 2 Ozempic 2 No 2mg Q1W Ozempic 2 [facility] mg/dose (8 mg/dose (8 mg/dose (8 Family mg/3 mL) mg/3 mL) mg/3 mL) Pra ctic subcutaneou subcutaneou subcutaneo e s pen s pen us pen injector injector injector Inject 2 mg Inject 2 mg Inject 2 every week every week mg every by by week by subcutaneou subcutaneou subcutaneo s route for s route for us route 30 days. 30 days. for 30 days. spironolact spironolact No spironolac [facility] one 25 mg one 25 mg tone 25 mg Family tablet Take tablet Take tablet Practic 1 tablet 1 tablet Take 1 e every day every day tablet by oral by oral every day route. route. by oral route. Immunizations Ordered Immunization Filled Immunization Date Status Commen ts Source Name Name [id number] 2021-02-13 Completed [facility] [id number]<perez 00:00:00 Herm ada p>1</sup> COVID-19 COVID-19 2021-02-13 Completed [facility] Family (SARS-COV-2) (SARS-COV-2) 00:00:00 Practice vaccine, unspecified vaccine, unspecified COVID-19 COVID-19 2021-01-20 Completed [facility] Family (SARS-COV-2) (SARS-COV-2) 00:00:00 Practice vaccine, unspecified vaccine, unspecified Vital Signs Vital Name Observation Time Observation Value Comments Source Systolic blood 2021-06-11 14:21:00 131 mm[facility]Hg[facility] Diastolic blood 2021-06-11 14:21:00 74 mm[facility]Hg[facility] Heart rate 2021-06-11 14:21:00 65 [facility] height 2021-06-11 14:21:00 193 [facility] Body weight 2021-06-11 14:21:00 [facility]109 [facility] BMI 2021-06-11 14:21:00 44.31 [facility]m2 [facility] Systolic blood 2021-05-23 16:31:00 120 mm[Hg] [facility] Diastolic blood 2021-05-23 16:31:00 71 mm[Hg] [facility] Heart rate 2021-05-23 16:31:00 76 /min [facility] height 2021-05-23 16:31:00 193 [facility] Body weight 2021-05-23 16:31:00 [facility]377 [facility] BMI 2021-05-23 16:31:00 44.92 kg[facility]m2 [facility] Systolic blood 2021-06-04 18:30:00 132 mm[Hg] [facility] Diastolic blood 2021-06-04 18:30:00 81 mm[Hg] [facility] Heart rate 2021-06-04 18:30:00 80 /min [facility] Body height 2021-06-04 18:30:00 193 [facility] Body weight 2021-06-04 18:30:00 167[facility]377 [facility] BMI 2021-06-04 18:30:00 44.92 [facility]m2 [facility] BP Diastolic 2022-07-25 00:00:00 82 mm[Hg] [facility] Height 2022-07-25 00:00:00 76 [in_i] [facility] BMI (Body Mass 2022-07-25 00:00:00 37.7 kg/m2 [facility] BP Systolic 2022-07-25 00:00:00 134 mm[Hg] [facility] Body Weight 2022-07-25 00:00:00 310 [lb_av] [facility] BP Diastolic 2022-01-17 00:00:00 86 mm[Hg] [facility] Height 2022-01-17 00:00:00 76 [in_i] [facility] BMI (Body Mass 2022-01-17 00:00:00 41.1 kg/m2 [facility] BP Systolic 2022-01-17 00:00:00 149 mm[Hg] [facility] Body Weight 2022-01-17 00:00:00 338 [lb_av] [facility] Systolic blood 2021-12-17 17:27:00 139 mm[Hg] [facility] Diastolic blood 2021-12-17 17:27:00 77 mm[Hg] [facility] Heart rate 2021-12-17 17:27:00 87 /min [facility] Body temperature 2021-12-17 17:27:00 [facility].89 [facility] 2021-12-17 17:27:00 193 [facility] Body weight 2021-12-17 17:27:00 153.407 [facility] BMI 2021-12-17 17:27:00 41.17 kg[facility]m2 [facility] Systolic blood 2021-08-08 14:15:00 133 mm[Hg] [facility] Diastolic blood 2021-08-08 14:15:00 78 mm[Hg] [facility] Heart rate 2021-08-08 14:15:00 76 /min [facility] Body temperature 2021-08-08 14:15:00 36.72 [facility] height 2021-08-08 14:15:00 193 [facility] Body weight 2021-08-08 14:15:00 158.305 [facility] BMI 2021-08-08 14:15:00 42.48 kg[facility]m2 [facility] Systolic blood 2021-07-16 14:21:00 118 mm[Hg] [facility] Diastolic blood 2021-07-16 14:21:00 77 mm[Hg] [facility] Heart rate 2021-07-16 14:21:00 82 /min [facility] height 2021-07-16 14:21:00 193 [facility] Body weight 2021-07-16 14:21:00 163.295 [facility] BMI 2021-07-16 14:21:00 43.82 kg[facility]m2 [facility] Systolic blood 2021-07-16 14:21:00 118 mm[Hg] [facility] Diastolic blood 2021-07-16 14:21:00 77 mm[Hg] [facility] Heart rate 2021-07-16 14:21:00 82 /min [facility] height 2021-07-16 14:21:00 193 [facility] Body weight 2021-07-16 14:21:00 163.295 [facility] BMI 2021-07-16 14:21:00 43.82 kg[facility]m2 [facility] BP Diastolic 2021-06-18 00:00:00 64 mm[Hg] [facility] Height 2021-06-18 00:00:00 76 [in_i] [facility] Practice BMI (Body Mass 2021-06-18 00:00:00 44.1 kg/m2 [facility] Family Index) Practice BP Systolic 2021-06-18 00:00:00 106 mm[Hg] [facility] Body Weight 2021-06-18 00:00:00 362.2 [lb_av] [facility] Systolic blood 2021-06-11 14:21:00 131 mm[Hg] [facility] Diastolic blood 2021-06-11 14:21:00 74 mm[Hg] [facility] Heart rate 2021-06-11 14:21:00 65 /min [facility] height 2021-06-11 14:21:00 193 [facility] Body weight 2021-06-11 14:21:00 165.109 [facility] BMI 2021-06-11 14:21:00 44.31 kg[facility]m2 [facility] Systolic blood 2021-06-04 18:30:00 132 mm[Hg] [facility] Diastolic blood 2021-06-04 18:30:00 81 mm[Hg] [facility] Heart rate 2021-06-04 18:30:00 80 /min [facility] height 2021-06-04 18:30:00 193 [facility] Body weight 2021-06-04 18:30:00 167.377 [facility] BMI 2021-06-04 18:30:00 44.92 kg[facility]m2 [facility] Systolic blood 2021-05-23 16:31:00 120 mm[Hg] [facility] Diastolic blood 2021-05-23 16:31:00 71 mm[Hg] [facility] Heart rate 2021-05-23 16:31:00 76 /min [facility] height 2021-05-23 16:31:00 193 [facility] Body weight 2021-05-23 16:31:00 167[facility]377 [facility] BMI 2021-05-23 16:31:00 44.92 kg/m2 [facility] h Systolic blood 2021-01-09 20:45:00 132 mm[Hg] [facility] Diastolic blood 2021-01-09 20:45:00 82 mm[Hg] [facility] Heart rate 2021-01-09 20:45:00 78 /min [facility] Body temperature 2021-01-09 20:45:00 36.72 [place] [facility] Body height 2021-01-09 20:45:00 193 cm [facility] Body weight 2021-01-09 20:45:00 163.93 kg [facility] BMI 2021-01-09 20:45:00 43.99 kg/m2 [facility] Oxygen saturation in 2021-01-09 20:45:00 97 /min [facility] blood by [employer] trinh Pulse oximetry Branch Systolic blood 2021-01-09 20:45:00 132 mm[Hg] [facility] Diastolic blood 2021-01-09 20:45:00 82 mm[Hg] [facility] Heart rate 2021-01-09 20:45:00 78 /min [facility] Body temperature 2021-01-09 20:45:00 36.72 [place] [facility] Body height 2021-01-09 20:45:00 193 cm [facility] Body weight 2021-01-09 20:45:00 163.93 kg [facility] BMI 2021-01-09 20:45:00 43.99 kg/m2 [facility] Oxygen saturation in 2021-01-09 20:45:00 97 /min [facility] blood by [employer] trinh Pulse oximetry Branch Systolic blood 2020-12-13 21:25:00 128 mm[Hg] [facility] Diastolic blood 2020-12-13 21:25:00 82 mm[Hg] [facility] Heart rate 2020-12-13 21:25:00 95 /min [facility] Body temperature 2020-12-13 21:25:00 36.78 [place] [facility] Body height 2020-12-13 21:25:00 193 cm [facility] Body weight 2020-12-13 21:25:00 165.518 kg [facility] BMI 2020-12-13 21:25:00 44.42 kg/m2 [facility] Oxygen saturation in 2020-12-13 21:25:00 96 /min [facility] Systolic blood 2020-10-10 21:52:00 117 mm[Hg] [facility] Diastolic blood 2020-10-10 21:52:00 82 mm[Hg] [facility] Heart rate 2020-10-10 21:52:00 81 /min [facility] Body temperature 2020-10-10 21:52:00 36.39 [place] [facility] Respiratory rate 2020-10-10 21:52:00 18 /min [facility] Body height 2020-10-10 21:52:00 193 cm [facility] Body weight 2020-10-10 21:52:00 159.802 kg [facility] BMI 2020-10-10 21:52:00 42.88 kg/m2 [facility] Oxygen saturation in 2020-10-10 21:52:00 98 /min [facility] blood by [facility] trinh Pulse oximetry Branch Systolic blood 2020-10-03 21:56:00 105 mm[Hg] [facility] Diastolic blood 2020-10-03 21:56:00 56 mm[Hg] [facility] Heart rate 2020-10-03 21:56:00 87 /min [facility] Body temperature 2020-10-03 21:56:00 37 [place] [facility] Respiratory rate 2020-10-03 21:56:00 20 /min [facility] Oxygen saturation in 2020-10-03 21:56:00 96 /min [facility] Body weight 2020-10-03 01:52:00 156.31 kg [facility] BMI 2020-10-03 01:52:00 41.95 kg/m2 [facility] Body height 2020-10-02 20:10:00 193 cm [facility] Heart Rate 2021-12-27 18:23:00 [facility] Systolic (mm Hg) 2021-12-27 18:23:00 [facility] Max Diastolic (mm Hg) 2021-12-27 18:23:00 [facility] Height 2021-12-27 18:23:00 193.04 cm [facility] Weight 2021-12-27 18:23:00 [facility] BMI Calculated 2021-12-27 18:23:00 [facility] Systolic (mm Hg) 2021-08-29 22:30:00 [facility] Diastolic (mm Hg) 2021-08-29 22:30:00 [facility] Height 2021-08-29 22:30:00 193.04 cm [facility] Weight 2021-08-29 22:30:00 [facility] BMI Calculated 2021-08-29 22:30:00 [facility] Heart Rate 2021-07-29 17:00:00 [facility] Respitory Rate 2021-07-29 17:00:00 [facility] Systolic (mm Hg) 2021-07-29 17:00:00 Ross rial Max Diastolic (mm Hg) 2021-07-29 17:00:00 [facility] Heart Rate 2021-07-29 13:00:00 [facility] Respitory Rate 2021-07-29 13:00:00 Memori al Max Systolic (mm Hg) 2021-07-29 13:00:00 Ross rial Max Diastolic (mm Hg) 2021-07-29 13:00:00 Mem orial Max Temperature Oral (F) 2021-07-29 09:00:00 98.4 F [facility] Temperature Oral (F) 2021-07-29 05:00:00 97.4 F [facility] Heart Rate 2021-07-29 05:00:00 [facility] Respitory Rate 2021-07-29 05:00:00 [facility] Systolic (mm Hg) 2021-07-29 05:00:00 Ross [facility] Diastolic (mm Hg) 2021-07-29 05:00:00 [facility] Temperature Oral (F) 2021-07-29 01:00:00 97.9 F [facility] Heart Rate 2021-07-29 01:00:00 [facility] Respitory Rate 2021-07-29 01:00:00 [facility] Systolic (mm Hg) 2021-07-29 01:00:00 Ross rial Max Diastolic (mm Hg) 2021-07-29 01:00:00 [facility] Temperature Oral (F) 2021-07-28 20:55:00 97.9 F [facility] Heart Rate 2021-07-28 20:55:00 [facility] Respitory Rate 2021-07-28 20:55:00 Memori [facility] Max Systolic (mm Hg) 2021-07-28 20:55:00 Ross rial Max Diastolic (mm Hg) 2021-07-28 20:55:00 Mem orial Max Height 2021-07-25 08:56:00 193.04 cm [facility] Height 2021-07-25 04:45:00 193.04 cm [facility] Height 2021-07-25 00:56:00 193.04 cm [facility] Weight 2021-07-23 14:12:00 [facility] BMI Calculated 2021-07-23 14:12:00 [facility] Systolic (mm Hg) 2021-06-05 19:30:00 [facility] Diastolic (mm Hg) 2021-06-05 19:30:00 [facility] Respitory Rate 2021-06-05 19:30:00 [facility] Max Systolic (mm Hg) 2021-06-05 19:00:00 [facility] Diastolic (mm Hg) 2021-06-05 19:00:00 [facility] Respitory Rate 2021-06-05 19:00:00 Mem[facility] Max Systolic (mm Hg) 2021-06-05 18:30:00 Ross rial Max Diastolic (mm Hg) 2021-06-05 18:30:00 [facility] Respitory Rate 2021-06-05 18:30:00 [facility] Heart Rate 2021-06-05 17:30:00 [facility] Heart Rate 2021-06-05 17:25:00 [facility] Heart Rate 2021-06-05 17:20:00 [facility] Height 2021-06-05 15:33:00 193.04 cm [facility] Weight 2021-06-05 15:33:00 [facility] BMI Calculated 2021-06-05 15:33:00 Memori [facility] Max Systolic (mm Hg) 2021-05-23 15:14:00 Ross rial Max Diastolic (mm Hg) 2021-05-23 15:14:00 Mem o[facility] Max Heart Rate 2021-05-23 15:14:00 [facility] Height 2021-05-23 15:14:00 182.88 cm [facility] Weight 2021-05-23 15:14:00 [facility] BMI Calculated 2021-05-23 15:14:00 [facility] Systolic (mm Hg) 2021-04-18 17:15:00 Ross [facility] Max Diastolic (mm Hg) 2021-04-18 17:15:00 Mem o[facility] Max Systolic (mm Hg) 2021-04-18 17:00:00 Ross [facility] Max Diastolic (mm Hg) 2021-04-18 17:00:00 [facility] Systolic (mm Hg) 2021-04-18 16:45:00 Ross rial Max Diastolic (mm Hg) 2021-04-18 16:45:00 [facility] Respitory Rate 2021-04-18 16:30:00 [facility] Respitory Rate 2021-04-18 16:15:00 [facility] Respitory Rate 2021-04-18 16:00:00 [facility] Height 2021-04-18 12:47:00 152.4 cm [facility] Weight 2021-04-18 12:47:00 [facility] BMI Calculated 2021-04-18 12:47:00 Memori al Max Systolic (mm Hg) 2021-03-22 16:01:00 Ross [facility] Diastolic (mm Hg) 2021-03-22 16:01:00 [facility] Heart Rate 2021-03-22 16:01:00 Radha Santana Height 2021-03-22 16:01:00 185.42 cm Radha Santana Weight 2021-03-22 16:01:00 Radha Santana BMI Calculated 2021-03-22 16:01:00 Jorge Addison Procedures Procedure Date / Time Performing Clinician Source Performed ECG 12-LEAD 2021-08-29 19:24:52 System, Provider Not [facility] In ECG 12-LEAD 2021-08-29 19:24:52 System, Provider Not [facility] In ECG 12-LEAD 2021-08-08 00:00:00 Vishal [facility] XR CHEST 2 VIEWS 2021-08-07 14:03:54 Vishal [facility] XR CHEST 2 VIEWS 2021-08-07 14:03:54 Vishal [facility] XR CHEST 2 VIEWS 2021-07-23 17:27:31 Vishal [facility] XR CHEST 2 VIEWS 2021-07-23 17:27:31 Vishal [facility] BREATHING CAPACITY TEST 2021-07-23 15:25:28 Vishal Moi [facility]alth ECG 12-LEAD 2021-07-16 [facility]:00[facility] 2021-06-26 19:01:34 Vishal [facility] BILATERAL US CAROTID DOPPLER 2021-06-26 19:01:[facility]ST [facility] CONTRAST 2021-06-26 18:26:52 Vishal Moi [facility] CT CHEST WO CONTRAST 2021-06-26 18:26:52 Vishal Moi [facility] US DUP-SCAN HEMO COMPL UNI 2021-06-21 14:56:36 [facility] US DUP-SCAN HEMO COMPL UNI 2021-06-21 14:56:36 Vishal Mo[address] [facility] ECG 12-LEAD 2021-06-11 00:00:00 Vishal [facility] ECG 12-LEAD 2021-06-04 18:33:00 Mk Porter [facility] MRI CARDIAC MORPHOLOGY AND 2021-05-11 22:26:00 Kj Lopez [facility] FUNCTION W AND WO IV CONTRAST MRI CARDIAC MORPHOLOGY AND 2021-05-11 22:26:00 [facility] FUNCTION W AND WO IV CONTRAST DME/SUPPLY JUSTIFICATION 2021-04-25 05:01:00 Doctor Unassigned, [facility] Name [facility] DME/SUPPLY JUSTIFICATION 2021-04-10 05:01:00 Doctor Unassigned, [facility] Name [facility] ASSIGNMENT OF BENEFITS 2020-10-10 21:36:15 Doctor Unassigned, [facility] POCT GLUCOSE (AUTOMATED) 2020-10-03 22:51:00 [facility] POCT GLUCOSE (AUTOMATED) 2020-10-03 21:03:00 [facility] POCT GLUCOSE (AUTOMATED) 2020-10-03 20:02:00 [facility] POCT GLUCOSE (AUTOMATED) 2020-10-03 17:25:00 [facility] POCT GLUCOSE (AUTOMATED) 2020-10-03 13:40:00 [facility] MAGNESIUM 2020-10-03 11:08:00 [facility] BASIC METABOLIC PANEL (NA, 2020-10-03 11:08:00 Shira Lund [facility] K, CL, CO2, GLUCOSE, BUN, Medica l Branch CREATININE, CA) N-TERMINAL PRO-BNP 2020-10-03 11:08:00 [facility] ([facility]OMATED) 2020-10-03 02:16:00 [facility] POCT GLUCOSE (AUTOMATED) 2020-10-03 00:28:00 [facility] TRANSESOPHAGEAL ECHO 2020-10-02 21:32:30 Emily Kendall [facility] POCT GLUCOSE (AUTOMATED) 2020-10-02 20:07:00 [facility] POCT GLUCOSE (AUTOMATED) 2020-10-02 16:10:00 [facility] POCT GLUCOSE (AUTOMATED) 2020-10-02 14:11:00 [facility] MAGNESIUM 2020-10-02 11:34:00 Ashely, [facility] BASIC METABOLIC PANEL (NA, 2020-10-02 11:34:00 [facility], CO2, GLUCOSE, BUN, Medica l Branch CREATININE, CA) POCT GLUCOSE (AUTOMATED) 2020-10-02 10:34:00 [facility] POCT GLUCOSE (AUTOMATED) 2020-10-02 06:06:00 [facility] Echocardiogram<sup>1</sup> 2020-10-02 06:00:00 M heather Santana POCT GLUCOSE (AUTOMATED) 2020-10-02 02:19:00 [facility] POCT GLUCOSE (AUTOMATED) 2020-10-01 23:01:00 [facility] NM MYOCARDIAL VIABILITY 2020-10-01 21:55:48 [facility] POCT GLUCOSE (AUTOMATED) 2020-10-01 16:26:00 [facility] POCT GLUCOSE (AUTOMATED) 2020-10-01 13:39:00 [facility] MAGNESIUM 2020-10-01 11:14:00 Ashely [facility] BASIC METABOLIC PANEL (NA, 2020-10-01 11:14:00 [facility], [facility], CO2, GLUCOSE, BUN, Medica l Branch CREATININE, CA) POCT GLUCOSE (AUTOMATED) 2020-10-01 10:38:00 [facility] POCT GLUCOSE (AUTOMATED) 2020-10-01 05:48:00 [facility] POCT GLUCOSE (AUTOMATED) 2020-10-01 01:14:00 [facility] POCT GLUCOSE (AUTOMATED) 2020-09-30 22:43:00 [facility] POCT GLUCOSE (AUTOMATED) 2020-09-30 18:40:00 [facility] POCT GLUCOSE (AUTOMATED) 2020-09-30 15:22:00 [facility] ECHO ROUTINE W/DOPPLER 2020-09-30 15:07:37 Eva Limon [facility] MAGNESIUM 2020-09-30 10:50:00 [facility] BASIC METABOLIC PANEL (NA, 2020-09-30 10:50:00 Shira Lund [facility] K, CL, CO2, GLUCOSE, BUN, Medica l Branch CREATININE, CA) ACTIVATED PARTIAL THRMPLAS 2020-09-30 10:50:00 Huy [facility] POCT GLUCOSE (AUTOMATED) 2020-09-30 10:46:00 [facility] POCT GLUCOSE (AUTOMATED) 2020-09-30 05:37:00 [facility] POCT GLUCOSE (AUTOMATED) 2020-09-30 03:06:00 [facility] POCT GLUCOSE (AUTOMATED) 2020-09-30 00:32:00 [facility] POCT GLUCOSE (AUTOMATED) 2020-09-29 21:52:00 [facility] POCT GLUCOSE (AUTOMATED) 2020-09-29 18:30:00 [facility] POCT GLUCOSE (AUTOMATED) 2020-09-29 14:48:00 [facility] POCT GLUCOSE (AUTOMATED) 2020-09-29 11:31:00 [facility] POCT GLUCOSE (AUTOMATED) 2020-09-29 07:37:00 [facility] MAGNESIUM 2020-09-29 07:30:00 [facility] 2020-09-29 07:30[facility]00 [facility]OLIC PANEL (NA, 2020-09-29 07:30:00 Shira Lund [facility] K, CL, CO2, GLUCOSE, BUN, Medica l Branch CREATININE, CA) GLYCOSYLATED HEMOGLOBIN 2020-09-29 07:30:00 [facility] ACTIVATED PARTIAL THRMPLAS 2020-09-29 07:30:00 Eva Limon [facility] POCT GLUCOSE (AUTOMATED) 2020-09-29 04:36:00 [facility] POCT GLUCOSE (AUTOMATED) 2020-09-29 01:31:00 [facility] ACTIVATED PARTIAL THRMPLAS 2020-09-28 22:33:00 [facility] & RHYTHM 2020-09-28 20:09:53 Emily Kendall [facility] STRIP [facility] POCT GLUCOSE (AUTOMATED) 2020-09-28 12:15:00 [facility] TROPONIN I 2020-09-28 09:42:00 [facility] ACTIVATED PARTIAL THRMPLAS 2020-09-28 09:42:00 [facility]SE (AUTOMATED) 2020-09-28 06:29:00 [facility] Cardiac catheterization, 2020-09-28 06:00:00 Hali Santana left heart<sup>2</sup> EKG-12 LEAD 2020-09-28 04:44:41 Jack [facility] TROPONIN I 2020-09-28 03:26:00 [facility] LIPID PANEL ([id number])(TOTAL 2020-09-28 03:26:00 [facility] CHOLE[facility], [facility] TRIGLYCERIDES, HDL) ACTIVATED PARTIAL THRMPLAS 2020-09-28 03:26:00 [facility] 2020-09-27 21:31:11 Elisabet Deshpande [facility] ANGIOGRAM Medical Branch LACTATE DEHYDROGENASE 2020-09-27 21:05:00 Elisabet Deshpande [facility] LIPASE 2020-09-27 19:09:00 Elisabet Deshpande [facility] TROPONIN I 2020-09-27 19:09:00 Elisabet Deshpande [facility] HEPATIC FUNCTION PANEL 2020-09-27 19:09:00 Elisabet Deshpande [facility] ([id number]) (ALB,T.PRO,BILI [facility] T,BU/BC,ALT,AST,ALK PHOS) BASIC METABOLIC PANEL (NA, 2020-09-27 19:09:00 Elisabet Deshpande [facility] K, CL, CO2, GLUCOSE, BUN, Medica l Branch CREATININE, CA) CBC WITH DIFF 2020-09-27 19:09:00 Elisabet Deshpande [facility] PROTHROMBIN TIME / INR 2020-09-27 19:09:00 Elisabet Deshpande [facility] acute hospital D-DIMER 2020-09-27 19:09:00 Elisabet Deshpande [facility] ACTIVATED PARTIAL THRMPLAS 2020-09-27 19:09:00 Elisabet Deshpande [facility] N-TERMINAL PRO-BNP 2020-09-27 19:09:00 Elisabet Deshpande [facility] COVID-19 (ID NOW RAPID 2020-09-27 19:09:00 Elisabet Deshpande [facility] TESTING) Medical Branch LAB ONLY COVID 2020-09-27 19:09:00 Elisabet Deshpande [facility] INTERPRETATION [facility] HB ECG ROUTINE & RHYTHM 2020-09-27 18:52:44 Elisabet Deshpande [facility] XR CHEST 1 VW 2020-09-27 18:52:03 Elisabet Deshpande [facility] NOTICE OF PRIVACY 2020-09-27 18:03:30 Doctor Unassigned, [facility] PRACTICES [facility] CARDIAC CATHETERIZATION 2019-11-16 00:00:00 Ross Santana RIGHT SHOULDER SURGERY [facility] RIGHT FOOT SURGERY [facility] APPENDECTOMY [facility] Plan of Care Planned Activity Planned Date Details Comments Source Diagnostic Test 2022-07-25 glucose, fingerstick, Hilario elias Family Pending 00:00:00 blood [code = Practice glucose, fingerstick, blood] Diagnostic Test 2022-07-25 hemoglobin A1C, Village F key Pending 00:00:00 fingerstick [code = Practice hemoglobin A1C, fingerstick] Future Appointment 2023-01-22 Garth Rios, Genia Mcmahan Family 10:15:[address]; Practice [address], [place] [address] Future Appointment 2023-01-22 Genia Mehta Family 00:00:[address]; Practice [address], [place] [address] Encounters Start End Encounter Admission Attending Care Care Encounter Source Date/Time Date/Time Type Type Clinicians Facility Department ID 2022-08-27 Outpatient [facility] [id number] [place] 18:04:34 [id number] [facility] 2022-05-20 Outpatient ZOILA, [facility] CAR [id number] HH 18:18:22 [facility] 2022-02-14 Outpatient BAYTN BAYTN [id number] [place] 14:40:31 [id number] [facility] 2022-02-12 Outpatient BAYTN BAYTN [id number] [place] 13:10:48 [id number] [facility] 2021-12-04 Outpatient ZOILA [facility] CAR [id number] HH 08:31:55 [facility] 2021-10-23 Outpatient VISHAL [facility] [id number] [place] 01:04:21 [facility] 2021-07-29 Outpatient VISHALNICKLAUS [facility] [id number] [place] 09:32:19 [facility] 2021-07-19 Outpatient ZORAN ESTRADA [facility] [id number] HSW 09:55:12 [facility] 2021-06-10 Outpatient VISHAL, [facility] [id number] [place] 10:07:33 [facility] 2021-05-23 Outpatient VISHAL, [facility] [id number] [place] 10:39:56 [facility] 2021-05-21 Outpatient GERMAN, [facility] [id number] [place] 08:47:00 MK Gaona 2021-03-26 Outpatient ZOILA, [facility] [id number] [place] 01:03:33 [facility] 2022-09-10 2022-09-10 Outpatient ZOILA, [facility] CAR [id number] [facility] 09:39:00 23:59:00 [facility] 2022-08-26 2022-08-26 Outpatient ZOILA, [facility] CAR [id number] [facility] 10:09:00 23:59:00 [facility] 2022-08-26 2022-08-26 Office ZOILA, EXT [facility] [id number] [place] 10:15:00 10:15:00 Visit [facility] 350.1.13.58 [facility] 9.2.7.2.686 [id number] 2022-07-28 2022-07-28 Outpatient Daniel_T VFP VFP [id number] [address] [place] [address] 00:00:00 00:00:00 [id number] Family Practic e 2022-07-25 2022-07-25 Outpatient Daniel_T VFP VFP [id number] [address] [place] [address] 00:00:00 00:00:00 [id number] Family Practic e 2022-07-25 2022-07-25 Garth VFP [place] - [id number] V illage 00:00:00 00:00:00 [facility] Family RiosBogdan - Pracstacey braswell MD: [id number] VM_LIAN_Seth e [facility], [address], [place] [address] , Ph. 2022-07-24 2022-07-24 Outpatient Daniel_T VFP VFP [id number] [address] [place] [address] 00:00:00 00:00:00 [id number] Family Practic e 2022-02-24 2022-02-24 Outpatient Daniel_T VFP VFP [id number] -[id number] [facility] 00:00:00 00:00:00 [id number] Family Practic e 2022-01-30 2022-01-30 Outpatient Daniel_T VFP VFP [id number] 20 [facility] 05:03:00 05:03:00 [id number] Family Practic e 2022-01-17 2022-01-17 Garth Rios_T VFP [place] - [id number] 0 Village 00:00:00 00:00:00 [facility] [id number] Family Rios, Bogdan - Pracstacey braswell MD: [id number] VM_HOU_Shad e [address], [place] [address] , Ph. 2021-12-27 2021-12-28 Outpatient nullFlavo [id number] Memoria 15:53:00 05:59:00 r Community 09 l Cardiology Debra nn [place] 2021-12-27 2021-12-27 Outpatient ZOILA, [facility] CAR [id number] [facility] 09:53:00 23:59:00 KJ 2021-12-25 2021-12-25 Outpatient Getel_T VFP VFP [id number] - [facility] 07:43:00 07:43:00 [id number] Family Practic e 2021-12-23 2021-12-24 Outpt Diag nullFlavo [facility] [id number] Memoria 19:05:00 05:59:00 Services r Outpatient 03 l Imaging [facility] 2021-12-17 2021-12-17 Office JOI Estrada [facility] 1.2.840.114 [id number] [place] 11:00:00 13:01:59 Visit Moi [facility] 350.1.13.58 He alth [place] 4 9.2.7.2.686 [id number] 4 2021-09-10 2021-09-10 EXT MH OP EXT MSRDP 1.2.840.114 1 [id number] [place] 00:00:00 00:00:00 LOCATION 350.1.13.58 H ealth 9.2.7.2.686 [id number] 0 2021-09-10 2021-09-10 EXT MH OP EXT MSRDP 1.2.840.114 1 [id number] [place] 00:00:00 00:00:00 LOCATION 350.1.13.58 H ealth 9.2.7.2.686 [id number] 0 2021-08-29 2021-08-30 Outpatient nullFlavo [id number] Memoria 18:52:00 04:59:00 r Community 04 l Cardiology Debra nn [place] 2021-08-29 2021-08-29 Outpatient ZOILA, [facility] CAR [id number] [facility] 13:52:00 23:59:00 KJ 2021-08-29 2021-08-29 Office ZOILA, EXT MSRDP 1.2.779.738 [id number] [place] 13:57:55 14:12:55 Visit KJ LOCATION 350.1.13.58 H ealth 9.2.7.2.686 [id number] 0 2021-08-29 2021-08-29 Office Zoila, EXT MSRDP 1.2.455.329 [id number] [place] 13:57:55 14:12:55 Visit Kj LOCATION 350.1.13.58 H ealth 9.2.7.2.686 [id number] 0 2021-08-08 2021-08-08 Office Vishal [facility] 1.2.840.114 [id number] [place] 08:55:09 10:19:56 Visit Moi MED 350.1.13.58 He alth [place] 4 9.2.7.2.686 [id number] 4 2021-08-07 2021-08-08 Outpt Diag nullFlavo [facility] [id number] [facility] 13:55:00 04:59:00 Services r Outpatient 02 l Imaging [facility] 2021-08-07 2021-08-07 Telephone Paulette Harris [facility] 1.2. 840.114 [id number] [place] 00:00:00 00:00:00 Paulette Harris SW MED 350.1.13.5 8 Health PLAZA 4 9.2.7.2.686 [id number] 4 2021-08-07 2021-08-07 EXT MHH OP Vishal, EXT MSRDP 1.2.840.114 [id number] [place] 00:00:00 00:00:00 Moi LOCATION 350.1.13.58 H ealth 9.2.7.2.686 [id number] 0 2021-08-07 2021-08-07 EXT MHH OP Vishal, EXT MSRDP 1.2.840.114 [id number] [place] 00:00:00 00:00:00 Moi LOCATION 350.1.13.58 H ealth 9.2.7.2.686 [id number] 0 2021-07-24 2021-07-29 Inpatient [facility] [id number] [facility] 10:12:00 21:27:00 Max 07 l [facility] 2021-07-24 2021-07-29 Inpatient [facility], [facility] PUL [id number] [facility] 05:12:00 16:27:00 AIMEE 2021-07-29 2021-07-29 Telephone Fany Barrow [facility] 1.2.840. 114 [id number] [place] 00:00:00 00:00:00 Fany Barrow SW MED 350.1.13.58 Health PLAZA 4 9.2.7.2.686 [id number] 4 2021-07-29 2021-07-29 Telephone Fany Barrow UTP [facility] 1.2.840. 114 [id number] [place] 00:00:00 00:00:00 Fany Barrow SW MED 350.1.13.58 Health [place] 4 9.2.7.2.686 [id number] 4 2021-07-29 2021-07-29 Orders Fany Barrow UTP [facility] 1.2.840.11 4 [id number] [place] 00:00:00 00:00:00 Only Fany Barrow SW MED 350.1.13.58 Health [place] 4 9.2.7.2.686 [id number] 4 2021-07-29 2021-07-29 Telephone Fany aBrrow [facility] 1.2.840. 114 [id number] [place] 00:00:00 00:00:00 Fany Barrow MED 350.1.13.58 Health PLAZA 4 9.2.7.2.686 [id number] 4 2021-07-29 2021-07-29 Telephone Fany Barrow UTP [facility] 1.2.840. 114 [id number] [place] 00:00:00 00:00:00 Fany Barrow MED 350.1.13.58 Health PLAZA 4 9.2.7.2.686 [id number] 4 2021-07-29 2021-07-29 [facility] Fany Barrow UTP [facility] 1.2.840.11 4 [id number] [place] 00:00:00 00:00:00 Only Fany Barrow MED 350.1.13.58 Health PLAZA 4 9.2.7.2.686 [id number] 4 2021-07-24 2021-07-24 EXT [facility] OP Vishal, EXT MSRDP 1.2.840.114 [id number] [place] 07:13:11 12:13:11 Moi LOCATION 350.1.13.58 H ealth 9.2.7.2.686 [id number] 1 2021-07-24 2021-07-24 EXT [facility] OP Vishal, EXT MSRDP 1.2.840.114 [id number] [place] 07:13:11 12:13:11 Moi LOCATION 350.1.13.58 H ealth 9.2.7.2.686 [id number] 1 2021-07-23 2021-07-24 Outpt Diag nullFlavo [facility] [id number] [facility] 17:10:00 04:59:00 Services r [facility] 2021-07-23 2021-07-23 EXT [facility] OP Vishal, EXT MSRDP 1.2.840.114 [id number] [place] 00:00:00 00:00:00 Moi LOCATION 350.1.13.58 H ealth 9.2.7.2.686 [id number] 0 2021-07-23 2021-07-23 EXT MHH OP Vishal, EXT MSRDP 1.2.840.114 [id number] [place] 00:00:00 00:00:00 Moi LOCATION 350.1.13.58 H ealth 9.2.7.2.686 [id number] 2021-07-17 2021-07-17 EXT MHH OP Vishal, EXT MSRDP 1.2.840.114 [id number] [place] 00:00:00 00:00:00 Moi LOCATION 350.1.13.58 H ealth 9.2.7.2.686 [id number] 0 2021-07-17 2021-07-17 EXT MHH OP Vishal, EXT MSRDP 1.2.840.114 [id number] [place] 00:00:00 00:00:00 Moi LOCATION 350.1.13.58 H ealth 9.2.7.2.686 [id number] 0 2021-07-16 2021-07-16 Office Vishal [facility] 1.2.840.114 [id number] [place] 09:09:17 10:52:16 Visit Moi MED 350.1.13.58 He alth PLA[place] 4 9.2.7.2.686 [id number] 4 2021-07-16 2021-07-16 Office Vishal [facility] 1.2.840.114 [id number] [place] 09:09:17 10:52:16 Visit Moi SW MED 350.1.13.58 He alth [place] 4 9.2.7.2.686 [id number] 4 2021-07-16 2021-07-16 Telephone Fany Barrow [facility] 1.2.840. 114 [id number] [place] 00:00:00 00:00:00 Fany Barrow SW MED 350.1.13.58 Health PLAZA 4 9.2.7.2.686 [id number] 4 2021-07-16 2021-07-16 Telephone Fany Barrow [facility] 1.2.840. 114 [id number] [place] 00:00:00 00:00:00 Fany Barrow [facility] 350.1.13.58 Health PLAZA 4 9.2.7.2.686 [id number] 4 2021-06-26 2021-06-[address] [facility] [id number] [facility] 18:08:00 04:59:00 Services r Outpatient 00 l [facility] 2021-06-26 2021-06-26 EXT [facility] OP Vishal, EXT MSRDP 1.2.840.114 [id number] [place] 00:00:00 00:00:00 Moi LOCATION 350.1.13.58 H ealth 9.2.7.2.686 [id number] 2021-06-26 2021-06-26 EXT [facility] OP Vishal, EXT MSRDP 1.2.840.114 [id number] [place] 00:00:00 00:00:00 Moi LOCATION 350.1.13.58 H ealth 9.2.7.2.686 [id number] 0 2021-06-21 2021-06-22 Outpatient [facility] 4699 [id number] [facility] 14:22:00 04:59:00 [facility] 06 l [facility] 2021-06-21 2021-06-21 Outpatient VISHAL POORNIMA [facility] [id number] [facility] 09:22:00 23:59:00 MOI 2021-06-21 2021-06-21 Outpatient Daniel_T VFP P [id number] [facility] 05:45:00 05:45:00 [id number] Family Practic e 2021-06-19 2021-06-19 Telephone Fany Barrow [facility] 1.2.840. 114 [id number] [place] 00:00:00 00:00:00 Fany Barrow [facility] 350.1.13.58 Health PLAZA 4 9.2.7.2.686 [id number] 4 2021-06-19 2021-06-19 EXT [facility] OP Vishal, EXT MSRDP 1.2.840.114 [id number] [place] 00:00:00 00:00:00 Moi LOCATION 350.1.13.58 H ealth 9.2.7.2.686 [id number] 0 2021-06-19 2021-06-19 EXT [facility] OP Vishal, EXT MSRDP 1.2.840.114 [id number] [place] 00:00:00 00:00:00 [facility] [place] 350.1.13.58 H ealth 9.2.7.2.686 [id number] 0 2021-06-18 2021-06-18 Garth Rios_T P [place] - [id number] 0 Village 00:00:00 00:00:00 [facility] [id number] Family Rios, Bogdan - Pracstacey braswell MD: [id number] VM_HOU_Shagudelia e [address], [place] [address] , Ph. 2021-06-14 2021-06-14 Telephone Fany Barrow [facility] 1.2.840. 114 [id number] [place] 00:00:00 00:00:00 Fany Barrow [facility] 350.1.13.58 Health PLAZA 4 9.2.7.2.686 [id number] 4 2021-06-14 2021-06-14 Telephone Fany Barrow [facility] 1.2.840. 114 [id number] [place] 00:00:00 00:00:00 Fany Barrow MED 350.1.13.58 Health PLAZA 4 9.2.7.2.686 [id number] 2021-06-11 2021-06-11 Office JOI Estrada [facility] 1.2.840.114 [id number] [place] 09:03:20 10:29:18 Visit Moi [facility] 350.1.13.58 He alth [place] 4 9.2.7.2.686 [id number] 4 2021-06-05 2021-06-05 Bedded [facility] [id number] [facility] 15:19:00 20:30:00 Outpatient sumi Santana 05 l [place] Debra abdul 2021-06-05 2021-06-05 Outpatient ZOILA, FB CAR [id number] [facility] 10:19:00 15:30:00 KJ 2021-06-04 2021-06-04 Office JOI Porter ZHEN 1.2.840.114 [id number] [place] 13:24:03 14:16:53 Visit Mk MAGAÑA 350.1.13.58 Health MULTI 9.2.7.2.686 SPECIALTY [id number] CLINIC 1 2021-05-23 2021-05-24 [id number] Memoria 14:59:00 04:59:[address] [place] 2021-05-23 2021-05-23 Outpatient ZOILA, [facility] CAR [id number] [facility] 09:59:00 23:59:00 KJ 2021-05-23 2021-05-23 Office Vishal [facility] 1.2.840.114 [id number] [place] 11:22:49 12:23:40 Visit Moi [facility] 350.1.13.58 [facility] 9.2.7.2.686 [id number] 4 2021-05-21 2021-05-21 Telephone JOI Porter ZHEN 1.2.840.114 1 [id number] [place] 00:00:00 00:00:00 Mk MAGAÑA 350.1.13.[address] [facility] 9.2.7.2.686 SPECIALTY [id number] CLINIC 1 2021-05-11 2021-05-12 Outpatient nullFlavo [facility] [id number] Memoria 21:02:00 04:59:[address] 2021-05-11 2021-05-11 Outpatient ZOILA, [facility] [id number] [facility] 16:02:00 23:59:00 KJ 2021-05-09 2021-05-09 EXT [facility] OP Zoila, EXT MSRDP 1.2.840.114 1 [id number] [place] 00:00:00 [facility]:00[facility] 350.[facility].13.58 H ealt 9.2.7.2.686 [id number] 0 2021-05-09 2021-05-09 EXT [facility] OP Zoila, EXT MSRDP 1.2.840.114 1 [id number] [place] 00:00:00 00:00:00 Kj LOCATION [facility].13.58 [facility] 9.2.7.2.686 [id number] 0 2021-04-25 2021-04-25 Orders Doctor CYNTHIA [place]2.840.114 [id number] Univers 00:00:00 00:00:00 Only Unassigned, SUNNY 350.1.13.10 ity [facility] [place] 4.2.7.2.686 [place] as [id number] [address] 2021-04-25 2021-04-25 Orders Doctor CYNTHIA 1.2.840.114 [id number] 00:00:00 00:00:00 Only Unassigned, SUNNY 350.1.13.10 [place] [facility] 4.2.7.2.686 [id number] 2021-04-18 2021-04-18 Bedded [facility] [id number] Memoria 12:29:00 17:55:00 Outpatient r Max 02 l [place] Debra 2021-04-18 2021-04-18 Outpatient ZOILA, [facility] CAR [id number] FB 07:29:00 12:55:00 KJ 2021-04-10 2021-04-10 Orders Doctor CYNTHIA Valdez.2.840.114 [id number] Univers 00:00:00 00:00:00 Only Unassigned, SUNNY 350.1.13.10 ity of [place] [facility] 4.2.7.2.686 [place] as [id number] [address] 2021-04-10 2021-04-10 Orders Doctor CYNTHIA [place]2.[place].114 [id number] 00:00:00 00:00:00 Only Unassigned, SUNNY 350.1.13.10 [facility] 4.2.7.2.686 [id number] 2021-03-22 2021-03-23 Outpatient [facility] [id number] Memoria 15:30:00 04:59:00 r Community 00 l Cardiology Debra nn [place] 2021-03-22 2021-03-22 Outpatient ZOILA, [facility] CAR [id number] [facility] 10:30:00 23:59:00 KJ 2021-03-13 2021-03-13 Outpatient R MURRAY [facility] [id number] Univers 14:00:00 14:00:00 [facility] 2021-03-11 2021-03-11 [facility] [id number] Univers 10:00:00 10:00:00 SANTHISRI [facility] 2021-01-28 2021-01-28 Telephone [facility] 1.2.840.114 [id number] Univers 00:00:00 00:00:00 [facility] [employer] 350.1.13.10 it y [place].7.2.[place] [id number] [facility] [address] 2021-01-28 2021-01-28 Telephone [facility] 1.2.840.114 [id number] 00:00:00 00:00:00 [facility] Health 350.1.13.10 [place] 4.2.7.2.686 [place] [id number] [place] [address] Office Building 2021-01-25 2021-01-25 Outpatient R MURRAY [facility] [id number] Univers 15:00:00 15:00:00 [facility] 2021-01-23 2021-01-23 Patient Alfie [facility] 1.2.840.114 [id number] Univers 00:00:00 00:00:00 Outreach Huy PRIMARY 350.1.13.10 i ty of [place] C[place].7.2.[place] [id number] Hi dical [address] 2021-01-23 2021-01-23 Patient Alfie [facility] 1.2.840.114 [id number] 00:00:00 00:00:00 Outreach Huy PRIMARY 350.1.13.10 [place] CARE 4.2.7.2.686 PAVILLION [id number] 388 2021-01-09 2021-01-09 Outpatient R MURRAY [facility] [id number] Univers 16:00:00 16:00:00 WILLIAM esmer [facility] 2021-01-09 2021-01-09 Office Murray [facility] 1.2.840.114 [id number] Univers 14:27:31 14:57:31 Visit [facility] 350.1.13.10 it y [place].2.686 [place] [id number] [address] Office Building 2021-01-09 2021-01-09 Office [facility] 1.2.840.114 [id number] 14:27:31 14:57:31 Visit [facility] 350.1.13.10 [facility] Clear 4.2.7.2.686 [place] [phone] [place] [address] Office Building 2020-12-21 2020-12-21 Outpatient R MEDINAErnesto [facility] [id number] [facility] 15:00:00 15:00:00 [facility] 2020-12-21 2020-12-21 Control Operator Flow Coat Draw, Clc-Bls Lab [facility] 1.2.8 40.114 [id number] Univers 13:50:24 14:05:24 Visit [facility]arez G[facility] 350.1. 13.10 ity [place].7.2.686 [place] [id number] [address] Office Building 2020-12-13 2020-12-13 Control Operator Flow Coat Draw, Clc-Bls Lab [facility] 1.2.8 40.114 [id number] Univers 16:20:50 16:35:50 Visit Blaise Crouch [facility] 350.1.13.10 ity of [place] 4[place]2.7.2.686 [place] [phone] [address] Office Building 2020-12-13 2020-12-13 Office [facility] 1.2.840.114 [id number] Univers 15:03:01 16:19:17 Visit [facility] 350.1.13.10 ity of [place] 4.[place].7.2.686 [place] [id number] [address] Office Building 2020-12-13 2020-12-13 Outpatient R CROUCH [facility] [id number] Univers 15:15:00 15:15:00 BLAISE chowdhury of [facility] 2020-11-23 2020-11-23 Refill Murray [facility] 1.2.840.114 [id number] Univers 00:00:00 00:00:00 [facility] 350.1.13.10 it y [place].7.2.[place] [phone] [address] Office Building 2020-10-18 2020-10-18 Patient Cristina Stephens 1.2.840.114 [id number] Univers 00:00:00 00:00:00 Outreach E [place] 350.1.13.10 i ty [place] 4.2.7.2.686 [place] [phone] [address] 2020-10-10 2020-10-10 Control Operator Flow Coat Draw, Clc-Bls Lab [facility] 1.2.8 40.114 [id number] Univers 16:44:39 16:59:39 Visit Juarez Gao [facility] [employer] 350.1. 13.10 [id number] [phone] [facility] [address] 2020-10-10 2020-10-10 Office Murray [facility] 1.2.840.114 [id number] Univers 15:37:28 16:46:12 Visit [facility] [id number] it y [id number] [phone] [address] Office Building 2020-10-10 2020-10-10 Outpatient R [facility] [id number] Univers 16:00:00 16:00:00 KAILEYWILLIAM chowdhury [facility] 2020-10-10 2020-10-10 Orders Doctor CYNTHIA 1.2.840.114 [id number] Univers 00:00:00 00:00:00 Only Unassigned, SUNNY [id number] ity of [facility] [id number] [place] [phone] [facility] [address] 2020-10-08 2020-10-08 Outpatient Gabriel_Jamar VFP VFP [id number] [id number] [facility] 03:15:00 03:15:00 [id number] Family Practic e 2020-10-04 2020-10-04 Transition Shiv Padilla 1.2.840.114 [id number] Univers 00:00:00 00:00:00 of Care Petrona Arriagay [id number] [id number] [phone] [facility] [address] 2020-10-04 2020-10-04 Transition Shiv Jessica 1.2.840.114 [id number] Univers 00:00:00 00:00:00 of Care Maya Arriagay [id number] it [id number] [phone] [facility] [address] 2020-09-27 2020-10-03 Hospital Elisabet Deshpande 1.2.840. 114 [id number] Univers 12:25:00 20:29:00 Encounter Rosendo-Paola Oleksandr Braswell Sunny [id number] ity of [facility] [id number] [place] [phone] [facility] [address] 2020-09-27 2020-09-27 Emergency X [facility] ERT [id number] Univers 12:06:00 12:06:00 ity [facility] Results Test Description Test Time Test Comments Results Result Comments Source Hemoglobin A1c measurement device panel 2022-07-25 10:40:31 Test Item Value Reference Range Interpretation Comme nts Hemoglobin A1c/Hemoglobin.total in Blood (test code = 4548-4) 6.7 % 5.7-6.4 [facility] PracticeGlucose [Mass/volume] in Capillary [id number] 10:37:30 Test Item Value Reference Range Interpretation Comments Blood Glucose: mg/dl (test code = Blood 149 Glucose: mg/dl) [facility] [id number] 08:51:25 Test Item Value Reference Range Interpretation Comments Hemoglobin A1C Fingerstick: (test code 6.2 = Hemoglobin A1C Fingerstick:) [facility] in Capillary [id number] 08:51:14 Test Item Value Reference Range Interpretation Comments Blood Glucose: mg/dl (test code = Blood 127 Glucose: mg/dl) [place] [id number] 09:59:00 Test Item Value Reference Range Interpretation Comments Glucose Lvl (test code = Glucose Lvl) 101 70-99 [place] [id number] 09:59:00 Test Item Value Reference Range Interpretation Comments BUN (test code = BUN) 15 7-22 [place] [id number] 09:59:00 Test Item Value Reference Range Interpretation Comments Creatinine Lvl (test code = Creatinine 0.70 0.50-1.40 Lvl) [place] 362331-09-13 09:59:00 Test Item Value Reference Range Interpretation Comments Sodium Lvl (test code = Sodium Lvl) 135 135-145 [place] 362331-09-13 09:59:00 Test Item Value Reference Range Interpretation Comments Potassium Lvl (test code = Potassium 3.4 3.5-5.1 Lvl) [place] 362331-09-13 09:59:00 Test Item Value Reference Range Interpretation Comments Chloride Lvl (test code = Chloride Lvl) 101 95-109 [place] 362331-09-13 09:59:00 Test Item Value Reference Range Interpretation Comments CO2 (test code = CO2) 28 24-32 [place] 362331-09-13 09:59:00 Test Item Value Reference Range Interpretation Comments AGAP (test code = AGAP) 9.4 10.0-20.0 [place] 362331-09-13 09:59:00 Test Item Value Reference Range Interpretation Comments Calcium Lvl (test code = Calcium Lvl) 8.6 8.5-10.5 [place] 362331-09-13 09:59:00 Test Item Value Reference Range Interpretation Comments eGFR (test code = eGFR) 101 [place] 362331-09-13 09:59:00 Test Item Value Reference Range Interpretation Comments Magnesium Lvl (test code = Magnesium 2.3 1.8-2.4 Lvl) [facility]FPI[facility]66[facility] 09:59:00 Test Item Value Reference Range Interpretation Comments Segs (test code = Segs) 53.1 45.0-75.0 [place] 811651-09-13 09:59:00 Test Item Value Reference Range Interpretation Comments Lymphocytes (test code = Lymphocytes) 31.0 20.0-40.0 [place] 811651-09-13 09:59:00 Test Item Value Reference Range Interpretation Comments Monocytes (test code = Monocytes) 11.9 2.0-12.0 [place] 811651-09-13 09:59:00 Test Item Value Reference Range Interpretation Comments Eosinophils (test code = 3.5 See_Comment [A utomated message] The Eosinophils) system which ge nerated this result tra nsmitted reference range : <=4.0. The reference r qi was not used to int erpret this result as normal/abnormal . [place] 811651-09-13 09:59:00 Test Item Value Reference Range Interpretation Comments Basophils (test code = 0.5 See_Comment [Aut omated message] The Basophils) system which ge nerated this result tra nsmitted reference range : <=1.0. The reference r qi was not used to int erpret this result as normal/abnormal . [place] 811651-09-13 09:59:00 Test Item Value Reference Range Interpretation Comments Neutrophils # (test code = Neutrophils 3.5 1.5-8.1 #) [place] 811651-09-13 09:59:00 Test Item Value Reference Range Interpretation Comments Lymphocytes # (test code = Lymphocytes 2.0 1.0-5.5 #) [place] 811651-09-13 09:59:00 Test Item Value Reference Range Interpretation Comments Monocytes # (test code 0.8 See_Comment [Aut omated message] The = Monocytes #) system which generated this result tra nsmitted reference range : <=0.8. The reference r qi was not used to int erpret this result as normal/abnormal . [place] 811651-09-13 09:59:00 Test Item Value Reference Range Interpretation Comments Eosinophils # (test code 0.2 See_Comment [A utomated message] The = Eosinophils #) system whic h generated this result tra nsmitted reference range : <=0.5. The reference r qi was not used to int erpret this result as normal/abnormal . [place] 811651-09-13 09:59:00 Test Item Value Reference Range Interpretation Comments WBC X 10x3 (test code = WBC X 10x3) 6.6 3.7-10.4 [place] 811651-09-13 09:59:00 Test Item Value Reference Range Interpretation Comments RBC X 10x6 (test code = RBC X 10x6) 2.93 4.70-6.10 [place] 811651-09-13 09:59:00 Test Item Value Reference Range Interpretation Comments Hgb (test code = Hgb) 9.3 14.0-18.0 [place] 811651-09-13 09:59:00 Test Item Value Reference Range Interpretation Comments Hct (test code = Hct) 27.5 42.0-54.0 [place] 811651-09-13 09:59:00 Test Item Value Reference Range Interpretation Comments MCV (test code = MCV) 93.9 80.0-94.0 [place] 811651-09-13 09:59:00 Test Item Value Reference Range Interpretation Comments MCH (test code = MCH) 31.8 pg 27.0-31.0 [place] 811651-09-13 09:59:00 Test Item Value Reference Range Interpretation Comments MCHC (test code = MCHC) 33.9 32.0-36.0 [place] 811651-09-13 09:59:00 Test Item Value Reference Range Interpretation Comments RDW (test code = RDW) 13.6 11.5-14.5 [place] 811651-09-13 09:59:00 Test Item Value Reference Range Interpretation Comments Platelet (test code = Platelet) 161 133-450 [place] 811651-09-13 09:59:00 Test Item Value Reference Range Interpretation Comments MPV (test code = MPV) 9.1 7.4-10.4 [facility]2021-09-12 15:37:00 Test Item Value Reference Range Interpretation Comments Glucose Lvl (test code = Glucose Lvl) 190 70-99 [facility]2021-09-12 15:37:00 Test Item Value Reference Range Interpretation Comments BUN (test code = BUN) 20 7-22 [place] 362331-09-12 15:37:00 Test Item Value Reference Range Interpretation Comments Creatinine Lvl (test code = Creatinine 0.80 0.50-1.40 Lvl) [place] 362331-09-12 15:37:00 Test Item Value Reference Range Interpretation Comments Sodium Lvl (test code = Sodium Lvl) 135 135-145 [place] 362331-09-12 15:37:00 Test Item Value Reference Range Interpretation Comments Potassium Lvl (test code = Potassium 3.3 3.5-5.1 Lvl) [place] 362331-09-12 15:37:00 Test Item Value Reference Range Interpretation Comments Chloride Lvl (test code = Chloride Lvl) 101 95-109 [place] 362331-09-12 15:37:00 Test Item Value Reference Range Interpretation Comments CO2 (test code = CO2) 29 24-32 [place] 362331-09-12 15:37:00 Test Item Value Reference Range Interpretation Comments Calcium Lvl (test code = Calcium Lvl) 8.5 8.5-10.5 [place] 362331-09-12 15:37:00 Test Item Value Reference Range Interpretation Comments AGAP (test code = AGAP) 8.3 10.0-20.0 [place] 362331-09-12 15:37:00 Test Item Value Reference Range Interpretation Comments eGFR (test code = eGFR) 96 [place] 362331-09-12 15:37:00 Test Item Value Reference Range Interpretation Comments Magnesium Lvl (test code = Magnesium 2.3 1.8-2.4 Lvl) [place] 811651-09-12 15:37:00 Test Item Value Reference Range Interpretation Comments WBC X 10x3 (test code = WBC X 10x3) 7.4 3.7-10.4 [place] 67727-09-12 15:37:00 Test Item Value Reference Range Interpretation Comments RBC X 10x6 (test code = RBC X 10x6) 3.03 4.70-6.10 [place] 811651-09-12 15:37:00 Test Item Value Reference Range Interpretation Comments Hgb (test code = Hgb) 9.6 14.0-18.0 [place] 67727-09-12 15:37:00 Test Item Value Reference Range Interpretation Comments Hct (test code = Hct) 28.3 42.0-54.0 [place] 811651-09-12 15:37:00 Test Item Value Reference Range Interpretation Comments MCV (test code = MCV) 93.4 80.0-94.0 [place] 677[address]-09-12 15:37:00 Test Item Value Reference Range Interpretation Comments MCH (test code = MCH) 31.7 pg 27.0-31.0 [place] 811651-09-12 15:37:00 Test Item Value Reference Range Interpretation Comments MCHC (test code = MCHC) 33.9 32.0-36.0 [place] 811651-09-12 15:37:00 Test Item Value Reference Range Interpretation Comments RDW (test code = RDW) 13.3 11.5-14.5 [place] 811651-09-12 15:37:00 Test Item Value Reference Range Interpretation Comments Platelet (test code = Platelet) 148 133-450 [place] 811651-09-12 15:37:00 Test Item Value Reference Range Interpretation Comments MPV (test code = MPV) 9.0 7.4-10.4 [place] 362331-09-11 07:38:00 Test Item Value Reference Range Interpretation Comments Glucose Lvl (test code = Glucose Lvl) 127 70-99 [place] 362331-09-11 07:38:00 Test Item Value Reference Range Interpretation Comments BUN (test code = BUN) 21 7-22 [place] 362331-09-11 07:38:00 Test Item Value Reference Range Interpretation Comments Creatinine Lvl (test code = Creatinine 0.80 0.50-1.40 Lvl) [place] 362331-09-11 07:38:00 Test Item Value Reference Range Interpretation Comments Sodium Lvl (test code = Sodium Lvl) 136 135-145 [place] 362331-09-11 07:38:00 Test Item Value Reference Range Interpretation Comments Potassium Lvl (test code = Potassium 3.7 3.5-5.1 Lvl) [place] 362331-09-11 07:38:00 Test Item Value Reference Range Interpretation Comments Chloride Lvl (test code = Chloride Lvl) 104 95-109 [place] 362331-09-11 07:38:00 Test Item Value Reference Range Interpretation Comments CO2 (test code = CO2) 28 24-32 [place] 362331-09-11 07:38:00 Test Item Value Reference Range Interpretation Comments Calcium Lvl (test code = Calcium Lvl) 8.0 8.5-10.5 [place] 362331-09-11 07:38:00 Test Item Value Reference Range Interpretation Comments AGAP (test code = AGAP) 7.7 10.0-20.0 [place] 362331-09-11 07:38:00 Test Item Value Reference Range Interpretation Comments eGFR (test code = eGFR) 96 [place] 362331-09-11 07:38:00 Test Item Value Reference Range Interpretation Comments Magnesium Lvl (test code = Magnesium 2.3 1.8-2.4 Lvl) [place] 362331-09-11 07:38:00 Test Item Value Reference Range Interpretation Comments Phosphorus (test code = Phosphorus) 1.6 2.5-4.5 [place] 811651-09-11 07:38:00 Test Item Value Reference Range Interpretation Comments Segs (test code = Segs) 63.3 45.0-75.0 [place] 811651-09-11 07:38:00 Test Item Value Reference Range Interpretation Comments Lymphocytes (test code = Lymphocytes) 24.5 20.0-40.0 [place] [address]77[address]-09-11 07:38:00 Test Item Value Reference Range Interpretation Comments Monocytes (test code = Monocytes) 11.2 2.0-12.0 [place] 67727-09-11 07:38:00 Test Item Value Reference Range Interpretation Comments Eosinophils (test code = 0.7 See_Comment [A utomated message] The Eosinophils) system which ge nerated this result tra nsmitted reference range : <=4.0. The reference r qi was not used to int erpret this result as normal/abnormal . [place] 6[address]27-09-11 07:38:00 Test Item Value Reference Range Interpretation Comments Basophils (test code = 0.3 See_Comment [Aut omated message] The Basophils) system which ge nerated this result tra nsmitted reference range : <=1.0. The reference r qi was not used to int erpret this result as normal/abnormal . [place] 811651-09-11 07:38:00 Test Item Value Reference Range Interpretation Comments Neutrophils # (test code = Neutrophils 5.5 1.5-8.1 #) [facility]WjqrlpxJHOTYUMXQO7273-04-57 07:38:00 Test Item Value Reference Range Interpretation Comments Lymphocytes # (test code = Lymphocytes 2.1 1.0-5.5 #) [place] 811651-09-11 07:38:00 Test Item Value Reference Range Interpretation Comments Monocytes # (test code 1.0 See_Comment [Aut omated message] The = Monocytes #) system which generated this result tra nsmitted reference range : <=0.8. The reference r qi was not used to int erpret this result as normal/abnormal . [place] 811651-09-11 07:38:00 Test Item Value Reference Range Interpretation Comments Eosinophils # (test code 0.1 See_Comment [A utomated message] The = Eosinophils #) system whic h generated this result tra nsmitted reference range : <=0.5. The reference r qi was not used to int erpret this result as normal/abnormal . [facility] CenterJpcngjrCTSRDVEZVA3881-37-53 07:38:00 Test Item Value Reference Range Interpretation Comments WBC X 10x3 (test code = WBC X 10x3) 8.7 3.7-10.4 [place] 811651-09-11 07:38:00 Test Item Value Reference Range Interpretation Comments RBC X 10x6 (test code = RBC X 10x6) 2.99 4.70-6.10 [place] 811651-09-11 07:38:00 Test Item Value Reference Range Interpretation Comments Hgb (test code = Hgb) 9.7 14.0-18.0 [place] 811651-09-11 07:38:00 Test Item Value Reference Range Interpretation Comments Hct (test code = Hct) 28.3 42.0-54.0 [place] 811651-09-11 07:38:00 Test Item Value Reference Range Interpretation Comments MCV (test code = MCV) 94.7 80.0-94.0 [place] 811651-09-11 07:38:00 Test Item Value Reference Range Interpretation Comments MCH (test code = MCH) 32.3 pg 27.0-31.0 [facility] CenterVdbvfwwZOLQMBRPHD4452-02-70 07:38:00 Test Item Value Reference Range Interpretation Comments MCHC (test code = MCHC) 34.1 32.0-36.0 [facility] CenterCfhbpkiPVMCHLWKFK6657-83-80 07:38:00 Test Item Value Reference Range Interpretation Comments RDW (test code = RDW) 13.5 11.5-14.5 [facility] CenterEdnihphKTMTMOTOBT6484-94-75 07:38:00 Test Item Value Reference Range Interpretation Comments Platelet (test code = Platelet) 116 133-450 [facility] CenterSuwsymuBRJWMNIOYX4978-87-03 07:38:00 Test Item Value Reference Range Interpretation Comments MPV (test code = MPV) 9.8 7.4-10.4 [id number] 07:38:00 Test Item Value Reference Range Interpretation Comments Ca Ion WB (test code = Ca Ion WB) 1.15 1.05-1.25 [facility] [id number] 07:38:00 Test Item Value Reference Range Interpretation Comments Ca Norm WB (test code = Ca Norm WB) 1.15 1.05-1.25 [facility]ballFalofycEDJASMWCIWTA0997-18-85 21:20:00 Test Item Value Reference Range Interpretation Comments Potassium Lvl (test code = Potassium 3.8 3.5-5.1 Lvl) [facility]2021-09-10 07:51:00 Test Item Value Reference Range Interpretation Comments Glucose Lvl (test code = Glucose Lvl) 178 70-99 [facility]2021-09-10 07:51:00 Test Item Value Reference Range Interpretation Comments BUN (test code = BUN) 20 7-22 [facility]2021-09-10 07:51:00 Test Item Value Reference Range Interpretation Comments Creatinine Lvl (test code = Creatinine 0.90 0.50-1.40 Lvl) [facility]2021-09-10 07:51:00 Test Item Value Reference Range Interpretation Comments Sodium Lvl (test code = Sodium Lvl) 142 135-145 [facility]2021-09-10 07:51:00 Test Item Value Reference Range Interpretation Comments Chloride Lvl (test code = Chloride Lvl) 109 95-109 [place] 362331-09-10 07:51:00 Test Item Value Reference Range Interpretation Comments CO2 (test code = CO2) 26 24-32 [place] 362331-09-10 07:51:00 Test Item Value Reference Range Interpretation Comments AGAP (test code = AGAP) 11.3 10.0-20.0 [place] 362331-09-10 07:51:00 Test Item Value Reference Range Interpretation Comments Calcium Lvl (test code = Calcium Lvl) 8.3 8.5-10.5 [place] 362331-09-10 07:51:00 Test Item Value Reference Range Interpretation Comments eGFR (test code = eGFR) 91 [place] 362331-09-10 07:51:00 Test Item Value Reference Range Interpretation Comments Magnesium Lvl (test code = Magnesium 2.7 1.8-2.4 Lvl) [place] 362331-09-10 07:51:00 Test Item Value Reference Range Interpretation Comments Phosphorus (test code = Phosphorus) 3.0 2.5-4.5 [place] 811651-09-10 07:51:00 Test Item Value Reference Range Interpretation Comments WBC X 10x3 (test code = WBC X 10x3) 8.9 3.7-10.4 [place] 811651-09-10 07:51:00 Test Item Value Reference Range Interpretation Comments RBC X 10x6 (test code = RBC X 10x6) 3.03 4.70-6.10 [place] 811651-09-10 07:51:00 Test Item Value Reference Range Interpretation Comments Hgb (test code = Hgb) 9.8 14.0-18.0 [place] 811651-09-10 07:51:00 Test Item Value Reference Range Interpretation Comments Hct (test code = Hct) 28.9 42.0-54.0 [place] 811651-09-10 07:51:00 Test Item Value Reference Range Interpretation Comments MCV (test code = MCV) 95.2 80.0-94.0 [place] 811651-09-10 07:51:00 Test Item Value Reference Range Interpretation Comments MCH (test code = MCH) 32.3 pg 27.0-31.0 [facility] CenterHgsmiuzBEGSBWERPX4186-57-49 07:51:00 Test Item Value Reference Range Interpretation Comments MCHC (test code = MCHC) 33.9 32.0-36.0 [facility] CenterByhtepyEJZELMVSRJ7276-28-51 07:51:00 Test Item Value Reference Range Interpretation Comments RDW (test code = RDW) 13.5 11.5-14.5 [facility] CenterIbrequeEAPQBHANVH6181-17-04 07:51:00 Test Item Value Reference Range Interpretation Comments Platelet (test code = Platelet) 99 133-450 [facility] CenterFfugpqnOTKZZQTYZV5362-23-73 07:51:00 Test Item Value Reference Range Interpretation Comments MPV (test code = MPV) 9.9 7.4-10.4 [place] 811651-09-10 07:51:00 Test Item Value Reference Range Interpretation Comments Segs (test code = Segs) 69.9 45.0-75.0 [facility] CenterLsqysesHAOSGFITVQ9179-17-12 07:51:00 Test Item Value Reference Range Interpretation Comments Lymphocytes (test code = Lymphocytes) 16.6 20.0-40.0 [facility] CenterMnsbgxoVCFVQUAYAS7517-65-39 07:51:00 Test Item Value Reference Range Interpretation Comments Monocytes (test code = Monocytes) 13.4 2.0-12.0 [facility] CenterPncdcriPPOWTBZNIS2128-68-81 07:51:00 Test Item Value Reference Range Interpretation Comments Basophils (test code = 0.1 See_Comment [Aut omated message] The Basophils) system which ge nerated this result tra nsmitted reference range : <=1.0. The reference r qi was not used to int erpret this result as normal/abnormal . [facility] CenterVbrnhkmVYXZTSKAHE4939-59-45 07:51:00 Test Item Value Reference Range Interpretation Comments Neutrophils # (test code = Neutrophils 6.2 1.5-8.1 #) [facility] CenterOhosnnzMFNMIDVGYO9078-41-27 07:51:00 Test Item Value Reference Range Interpretation Comments Lymphocytes # (test code = Lymphocytes 1.5 1.0-5.5 #) [facility] CenterDdsjkcyYGJDXYWOEH5023-33-35 07:51:00 Test Item Value Reference Range Interpretation Comments Monocytes # (test code 1.2 See_Comment [Aut omated message] The = Monocytes #) system which generated this result tra nsmitted reference range : <=0.8. The reference r qi was not used to int erpret this result as normal/abnormal . [facility]2021-09-10 07:51:00 Test Item Value Reference Range Interpretation Comments Ca Ion WB (test code = Ca Ion WB) 1.21 1.05-1.25 [facility]2021-09-10 07:51:00 Test Item Value Reference Range Interpretation Comments Ca Norm WB (test code = Ca Norm WB) 1.19 1.05-1.25 [facility]2021-09-10 02:59:00 Test Item Value Reference Range Interpretation Comments Lactic Acid Lvl (test code = Lactic 1.2 0.5-2.2 Acid Lvl) [facility]2021-09-09 20:42:00 Test Item Value Reference Range Interpretation Comments Lactic Acid Lvl (test code = Lactic 3.4 0.5-2.2 Acid Lvl) [facility]2021-09-09 14:34:00 Test Item Value Reference Range Interpretation Comments Lactic Acid Lvl (test code = Lactic 6.8 0.5-2.2 Acid Lvl) [place] 362331-09-09 14:34:00 Test Item Value Reference Range Interpretation Comments Phosphorus (test code = Phosphorus) 4.6 2.5-4.5 [place] 811651-09-09 14:34:00 Test Item Value Reference Range Interpretation Comments Segs (test code = Segs) 83.9 45.0-75.0 [place] 811651-09-09 14:34:00 Test Item Value Reference Range Interpretation Comments Lymphocytes (test code = Lymphocytes) 4.4 20.0-40.0 [place] 811651-09-09 14:34:00 Test Item Value Reference Range Interpretation Comments Monocytes (test code = Monocytes) 11.5 2.0-12.0 [place] 811651-09-09 14:34:00 Test Item Value Reference Range Interpretation Comments Basophils (test code = 0.2 See_Comment [Aut omated message] The Basophils) system which ge nerated this result tra nsmitted reference range : <=1.0. The reference r qi was not used to int erpret this result as normal/abnormal . [place] 811651-09-09 14:34:00 Test Item Value Reference Range Interpretation Comments Neutrophils # (test code = Neutrophils 12.6 1.5-8.1 #) [facility] CenterHcmbbkxVPLTKCQYYM8005-11-47 14:34:00 Test Item Value Reference Range Interpretation Comments Lymphocytes # (test code = Lymphocytes 0.7 1.0-5.5 #) [place] 811651-09-09 14:34:00 Test Item Value Reference Range Interpretation Comments Monocytes # (test code 1.7 See_Comment [Aut omated message] The = Monocytes #) system which generated this result tra nsmitted reference range : <=0.8. The reference r qi was not used to int erpret this result as normal/abnormal . [facility]2021-09-09 14:34:00 Test Item Value Reference Range Interpretation Comments Ca Ion WB (test code = Ca Ion WB) 1.19 1.05-1.25 [place] 312051-09-09 14:34:00 Test Item Value Reference Range Interpretation Comments Ca Norm WB (test code = Ca Norm WB) 1.14 1.05-1.25 [place] 811651-09-09 07:44:00 Test Item Value Reference Range Interpretation Comments POC Activated Clotting Time (test code 154 s = POC Activated Clotting Time) [place] 362331-09-09 07:19:00 Test Item Value Reference Range Interpretation Comments Total Protein (test code = Total 6.1 6.4-8.4 Protein) [place] 362331-09-09 07:19:00 Test Item Value Reference Range Interpretation Comments Albumin Lvl (test code = Albumin Lvl) 3.9 3.5-5.0 [place] 362331-09-09 07:19:00 Test Item Value Reference Range Interpretation Comments ALT (test code = ALT) 38 See_Comment [Auto mated message] The system which ge nerated this result transmit miriam reference range : <=65. The reference range was not used to interpr et this result as phillip l/abnormal. [place] 362331-09-09 07:19:00 Test Item Value Reference Range Interpretation Comments AST (test code = AST) 61 See_Comment [Auto mated message] The system which ge nerated this result transmit miriam reference range : <=37. The reference range was not used to interpr et this result as phillip l/abnormal. [facility] [id number] 07:19:00 Test Item Value Reference Range Interpretation Comments Alk Phos (test code = Alk Phos) 33 39-136 [facility] [id number] 07:19:00 Test Item Value Reference Range Interpretation Comments Bili Total (test code = Bili Total) 1.4 0.2-1.3 [facility] [id number] 07:19:00 Test Item Value Reference Range Interpretation Comments B/C Ratio (test code = B/C Ratio) 18 1 6-25 [facility] [id number] 07:19:00 Test Item Value Reference Range Interpretation Comments Globulin (test code = Globulin) 2.2 2.7-4.2 [facility] [id number] 07:19:00 Test Item Value Reference Range Interpretation Comments A/G Ratio (test code = A/G Ratio) 1.8 1 0.7-1.6 [place] 811651-09-09 07:19:00 Test Item Value Reference Range Interpretation Comments PT (test code = PT) 16.4 s 12.0-14.7 [facility] HospitalRexlnswCXRURLQJDP0412-83-11 07:19:00 Test Item Value Reference Range Interpretation Comments INR (test code = INR) 1.35 1 0.85-1.17 [facility] HospitalWltcxvmSOWLXUZVRI9101-85-99 01:01:00 Test Item Value Reference Range Interpretation Comments PTT (test code = PTT) 33.1 s 22.9-35.8 [place] 811651-09-09 01:01:00 Test Item Value Reference Range Interpretation Comments PT (test code = PT) 17.2 s 12.0-14.7 [facility] HospitalEbdlvcjUPSGCUPPLT7634-69-51 01:01:00 Test Item Value Reference Range Interpretation Comments INR (test code = INR) 1.44 1 0.85-1.17 [facility] HospitalVvpsenvTRRGCIZQAY3538-68-39 01:01:00 Test Item Value Reference Range Interpretation Comments RBC Morph (test code = Normal (07/24/21 8:01 PM) RBC Morph) [facility] CenterVktpqsiRZYRAHJGRR1432-56-33 01:01:00 Test Item Value Reference Range Interpretation Comments Plt Morph (test code = Normal (07/24/21 8:01 PM) Plt Morph) [facility] CenterEnoklzwDILGXQCXZY5797-66-10 01:01:00 Test Item Value Reference Range Interpretation Comments Basophils # (test code 0.2 See_Comment [Aut omated message] The = Basophils #) system which generated this result tra nsmitted reference range : <=0.2. The reference r qi was not used to int erpret this result as normal/abnormal . [facility] [id number] 20:48:00 Test Item Value Reference Range Interpretation Comments Total Protein (test code = Total 5.9 6.4-8.4 Protein) [facility] [id number] 20:48:00 Test Item Value Reference Range Interpretation Comments Albumin Lvl (test code = Albumin Lvl) 3.4 3.5-5.0 [facility] [id number] 20:48:00 Test Item Value Reference Range Interpretation Comments ALT (test code = ALT) 49 See_Comment [Auto mated message] The system which ge nerated this result transmit miriam reference range : <=65. The reference range was not used to interpr et this result as phillip l/abnormal. [facility] [id number] 20:48:00 Test Item Value Reference Range Interpretation Comments AST (test code = AST) 78 See_Comment [Auto mated message] The system which ge nerated this result transmit miriam reference range : <=37. The reference range was not used to interpr et this result as phillip l/abnormal. [facility] EdPuzzle [id number] 20:48:00 Test Item Value Reference Range Interpretation Comments Alk Phos (test code = Alk Phos) 42 39-136 [facility] [id number] 20:48:00 Test Item Value Reference Range Interpretation Comments Bili Total (test code = Bili Total) 2.1 0.2-1.3 [facility] [id number] 20:48:00 Test Item Value Reference Range Interpretation Comments B/C Ratio (test code = B/C Ratio) 17 1 6-25 [facility] [id number] 20:48:00 Test Item Value Reference Range Interpretation Comments Globulin (test code = Globulin) 2.5 2.7-4.2 [facility] [id number] 20:48:00 Test Item Value Reference Range Interpretation Comments A/G Ratio (test code = A/G Ratio) 1.4 1 0.7-1.6 [facility]KsrlihqSPRKTIBYQV6826-18-44 20:44:00 Test Item Value Reference Range Interpretation Comments PTT (test code = PTT) 29.3 s 22.9-35.8 [facility] HospitalBpimlpcOUDEGUCRLF5192-62-58 20:44:00 Test Item Value Reference Range Interpretation Comments PT (test code = PT) 17.4 s 12.0-14.7 [facility] CenterTlrxsbiZPXJJBLKNF5996-31-42 20:44:00 Test Item Value Reference Range Interpretation Comments INR (test code = INR) 1.46 1 0.85-1.17 [facility] CenterApfiucwQEDFWTPMOE1836-08-05 20:44:00 Test Item Value Reference Range Interpretation Comments RBC Morph (test code = Normal (07/24/21 3:44 PM) RBC Morph) [facility] CenterYvjkabdSRATKWKKHR0402-93-60 20:44:00 Test Item Value Reference Range Interpretation Comments Plt Morph (test code = Normal (07/24/21 3:44 PM) Plt Morph) [facility] CenterOkjfuidXAHXZMJCDF3024-69-40 20:44:00 Test Item Value Reference Range Interpretation Comments Eosinophils (test code = 0.2 See_Comment [A utomated message] The Eosinophils) system which ge nerated this result tra nsmitted reference range : <=4.0. The reference r qi was not used to int erpret this result as normal/abnormal . [facility] CenterRuzkefkTQGWRFRFNE5718-45-30 20:44:00 Test Item Value Reference Range Interpretation Comments Basophils # (test code 0.1 See_Comment [Aut omated message] The = Basophils #) system which generated this result tra nsmitted reference range : <=0.2. The reference r qi was not used to int erpret this result as normal/abnormal . [facility] HospitalArrogeneOOD BANK [id number] 19:21:00 Test Item Value Reference Range Interpretation Comments FFP product (test code Product available = FFP product) (07/24/21 2:21 PM) [facility] HospitalBACTERIAL - [id number] 14:50:00 Test Item Value Reference Range Interpretation Comments MRSA by PCR (test Negative (07/23/21 9:50 code = MRSA by PCR) AM) [facility] [id number] 14:50:00 Test Item Value Reference Range Interpretation Comments ABO/Rh (test code = ABO/Rh) A POS [facility] [id number] 14:50:00 Test Item Value Reference Range Interpretation Comments Antibody Scrn (test Negative (07/23/21 9:50 code = Antibody Scrn) AM) [facility] HospitalRoedqxxDSQMMWJUWY4386-27-72 14:50:00 Test Item Value Reference Range Interpretation Comments PTT (test code = PTT) 31.6 s 22.9-35.8 [facility] CenterYeypuskYUEFULPQLY7458-02-52 14:50:00 Test Item Value Reference Range Interpretation Comments Eosinophils (test code = 2.1 See_Comment [A utomated message] The Eosinophils) system which ge nerated this result tra nsmitted reference range : <=4.0. The reference r qi was not used to int erpret this result as normal/abnormal . [facility] CenterIhqiwosLAQWUVPBPB3459-62-47 14:50:00 Test Item Value Reference Range Interpretation Comments Eosinophils # (test code 0.1 See_Comment [A utomated message] The = Eosinophils #) system whic h generated this result tra nsmitted reference range : <=0.5. The reference r qi was not used to int erpret this result as normal/abnormal . [facility] HospitalGxofopbXVKNIW6936-77-64 14:50:00 Test Item Value Reference Range Interpretation Comments Trig (test code = Trig) 118 [facility] HospitalAbsmeglSQAQXI5596-10-52 14:50:00 Test Item Value Reference Range Interpretation Comments Chol (test code = Chol) 116 [facility] HospitalJyophguXLGHVS3920-57-50 14:50:00 Test Item Value Reference Range Interpretation Comments HDL (test code = HDL) 36 [facility] HospitalHeufgsvGWMZXA4367-05-96 14:50:00 Test Item Value Reference Range Interpretation Comments CHD Risk (test code = CHD Risk) 3.22 1 4.00-7.30 [facility] HospitalOodxyfkXWVXZI5827-72-91 14:50:00 Test Item Value Reference Range Interpretation Comments LDL (Calculated) (test code = LDL 56 (Calculated)) [facility] HospitalGxxfpawJAEFJC6392-26-79 14:50:00 Test Item Value Reference Range Interpretation Comments VLDL (test code = VLDL) 24 [facility] OFMFBFUAQ8732-15-43 14:50:00 Test Item Value Reference Range Interpretation Comments Hgb A1C (test code = Hgb A1C) 7.2 [facility] BANK [id number] 14:47:00 Test Item Value Reference Range Interpretation Comments RBC product (test code Product available = RBC product) (07/23/21 9:47 AM) [facility] BANK [id number] 14:47:00 Test Item Value Reference Range Interpretation Comments Platelet product (test Product available code = Platelet (07/23/21 9:47 AM) product) [facility] [id number] 14:47:00 Test Item Value Reference Range Interpretation Comments FFP product (test code Product available = FFP product) (07/23/21 9:47 AM) [facility] HospitalZuixumhBNFDERVWLU2280-51-68 13:23:00 Test Item Value Reference Range Interpretation Comments Coronavirus (COVID-19) Not Detected (07/23/21 JANNA (test code = 8:23 AM) Coronavirus (COVID-19) JANNA) [facility] HospitalBreathing capacity [id number] 05:00:00SEE IMAGELINKInterface, [facility] Imaging Results - 07/23/2021 12:02 PM CDT SEE IMAGELINKUT Health SQXCCJPPKLCA7786-88-53 15:47:00 Test Item Value Reference Range Interpretation Comments POC Sodium (test code = POC Sodium) 141 135-145 [facility]aMferlnyDBAFHIRMAIVN4993-46-27 15:47:00 Test Item Value Reference Range Interpretation Comments POC Potassium (test code = POC 4.1 3.5-5.1 Potassium) [facility]aGrmjsmjXNLRJNQABKWC9518-54-51 15:47:00 Test Item Value Reference Range Interpretation Comments POC Chloride (test code = POC Chloride) 99 95-109 [facility]MolxsraHRXKKLGXFESR5532-29-42 15:47:00 Test Item Value Reference Range Interpretation Comments POC Carbon Dioxide (test code = POC 28 24-32 Carbon Dioxide) [facility]aIequwfvFKPBFJDILRKH8777-11-54 15:47:00 Test Item Value Reference Range Interpretation Comments POC BUN (test code = POC BUN) 25 - [facility]VkjiwsuGJFKEALNBRET4053-42-59 15:47:00 Test Item Value Reference Range Interpretation Comments POC Creatinine (test code = POC 1.1 0.5-1.4 Creatinine) [facility] HospitalDmwspexSRGCTDEZIUZP7196-00-37 15:47:00 Test Item Value Reference Range Interpretation Comments POC Glucose (test code = POC Glucose) 206 70-99 [facility] HospitalFowtdgeTZANSRPRCJIO3423-71-42 15:47:00 Test Item Value Reference Range Interpretation Comments POC Ion Ca (test code = POC Ion Ca) 1.14 1.05-1.25 [facility] HospitalUudaxcgHSDOZBBIOLMX0074-82-93 15:47:00 Test Item Value Reference Range Interpretation Comments POC Hemoglobin (test code = POC 15.6 14.0-18.0 Hemoglobin) [facility] HospitalXbsubesXONQUUSQTGRX6062-70-78 15:47:00 Test Item Value Reference Range Interpretation Comments POC Hematocrit (test code = POC 46.0 42.0-54.0 Hematocrit) [facility] HospitalDgusspbTFFUFKIPPYJC4407-40-52 15:47:00 Test Item Value Reference Range Interpretation Comments POC AGAP (test code = POC AGAP) 19.0 10.0-20.0 [facility] HospitalIbfpcpcRGRDSTQGHRTD5660-52-51 15:47:00 Test Item Value Reference Range Interpretation Comments eGFR (test code = eGFR) 72 [facility] HospitalTwtypowXTILOJZHSHEC8291-53-72 15:47:00 Test Item Value Reference Range Interpretation Comments POC Disclaimer (test code See Note = POC Disclaimer) *NA*(06/05/21 10:47 AM) [facility] [id number] 15:37:00 Test Item Value Reference Range Interpretation Comments Glucose Lvl (test code = Glucose Lvl) 196 70-99 [facility]Easy[facility] [id number] 15:37:00 Test Item Value Reference Range Interpretation Comments BUN (test code = BUN) 22 06-06 [facility] [id number] 15:37:00 Test Item Value Reference Range Interpretation Comments Creatinine Lvl (test code = Creatinine 1.19 0.50-1.40 Lvl) [facility] [id number] 15:37:00 Test Item Value Reference Range Interpretation Comments Sodium Lvl (test code = Sodium Lvl) 138 135-145 [place] 362331-07-21 15:37:00 Test Item Value Reference Range Interpretation Comments Potassium Lvl (test code = Potassium 4.0 3.5-5.1 Lvl) [place] 362331-07-21 15:37:00 Test Item Value Reference Range Interpretation Comments Chloride Lvl (test code = Chloride Lvl) 103 95-109 [place] 362331-07-21 15:37:00 Test Item Value Reference Range Interpretation Comments CO2 (test code = CO2) 28 24-32 [place] 362331-07-21 15:37:00 Test Item Value Reference Range Interpretation Comments Calcium Lvl (test code = Calcium Lvl) 9.2 8.5-10.5 [place] 362331-07-21 15:37:00 Test Item Value Reference Range Interpretation Comments AGAP (test code = AGAP) 11.0 10.0-20.0 [place] 362331-07-21 15:37:00 Test Item Value Reference Range Interpretation Comments eGFR (test code = eGFR) 65 [place] 811651-07-21 15:37:00 Test Item Value Reference Range Interpretation Comments WBC (test code = WBC) 7.7 3.7-10.4 [place] 811651-07-21 15:37:00 Test Item Value Reference Range Interpretation Comments RBC (test code = RBC) 4.71 4.70-6.10 [place] 811651-07-21 15:37:00 Test Item Value Reference Range Interpretation Comments Hgb (test code = Hgb) 14.8 14.0-18.0 [place] 811651-07-21 15:37:00 Test Item Value Reference Range Interpretation Comments Hct (test code = Hct) 44.8 42.0-54.0 [place] 811651-07-21 15:37:00 Test Item Value Reference Range Interpretation Comments MCV (test code = MCV) 95.2 80.0-94.0 [place] 811651-07-21 15:37:00 Test Item Value Reference Range Interpretation Comments MCH (test code = MCH) 31.3 pg 27.0-31.[address]07-21 15:37:00 Test Item Value Reference Range Interpretation Comments MCHC (test code = MCHC) 32.9 32.0-36.0 [place] 811651-07-21 15:37:00 Test Item Value Reference Range Interpretation Comments RDW (test code = RDW) 13.3 11.5-14.5 [place] 811651-07-21 15:37:00 Test Item Value Reference Range Interpretation Comments Platelet (test code = Platelet) 220 133-450 [place] 811651-07-21 15:37:00 Test Item Value Reference Range Interpretation Comments MPV (test code = MPV) 9.3 7.4-10.4 [place] 811651-07-21 15:37:00 Test Item Value Reference Range Interpretation Comments PT (test code = PT) 13.4 s 12.0-14.7 [place] 811651-07-21 15:37:00 Test Item Value Reference Range Interpretation Comments INR (test code = INR) 1.03 1 0.85-1.17 [place] 811651-07-21 15:37:00 Test Item Value Reference Range Interpretation Comments PTT (test code = PTT) 30.0 s 22.9-35.8 [place] 811651-07-21 15:37:00 Test Item Value Reference Range Interpretation Comments Segs (test code = Segs) 55.1 45.0-75.0 [facility] CenterKzjblmfVVHZXALILT9763-08-31 15:37:00 Test Item Value Reference Range Interpretation Comments Lymphocytes (test code = Lymphocytes) 28.2 20.0-40.0 [place] 811651-07-21 15:37:00 Test Item Value Reference Range Interpretation Comments Monocytes (test code = Monocytes) 10.6 2.0-12.0 [place] 811651-07-21 15:37:00 Test Item Value Reference Range Interpretation Comments Eosinophils (test code = 5.5 See_Comment [A utomated message] The Eosinophils) system which ge nerated this result tra nsmitted reference range : <=4.0. The reference r qi was not used to int erpret this result as normal/abnormal . [place] 811651-07-21 15:37:00 Test Item Value Reference Range Interpretation Comments Basophils (test code = 0.6 See_Comment [Aut omated message] The Basophils) system which ge nerated this result tra nsmitted reference range : <=1.0. The reference r qi was not used to int erpret this result as normal/abnormal . [facility] CenterVqsplrfKAMQTDPOQX5137-61-46 15:37:00 Test Item Value Reference Range Interpretation Comments Neutrophils # (test code = Neutrophils 4.3 1.5-8.1 #) [facility] CenterVfdttciHVMEJJQTWS0906-80-72 15:37:00 Test Item Value Reference Range Interpretation Comments Lymphocytes # (test code = Lymphocytes 2.2 1.0-5.5 #) [facility] CenterAqzbkxpDCEIITPLRK5253-47-50 15:37:00 Test Item Value Reference Range Interpretation Comments Monocytes # (test code 0.8 See_Comment [Aut omated message] The = Monocytes #) system which generated this result tra nsmitted reference range : <=0.8. The reference r qi was not used to int erpret this result as normal/abnormal . [facility] CenterIygasidMQYUSBGCJZ2611-17-01 15:37:00 Test Item Value Reference Range Interpretation Comments Eosinophils # (test code 0.4 See_Comment [A utomated message] The = Eosinophils #) system whic h generated this result tra nsmitted reference range : <=0.5. The reference r qi was not used to int erpret this result as normal/abnormal . [facility] CenterEtpdccsWDCKCEJAUW1274-11-24 15:37:00 Test Item Value Reference Range Interpretation Comments Basophils # (test code 0.1 See_Comment [Aut omated message] The = Basophils #) system which generated this result tra nsmitted reference range : <=0.2. The reference r qi was not used to int erpret this result as normal/abnormal . [facility] LZQQK9508-64-22 22:03:00 Test Item Value Reference Range Interpretation Comments POC Creatinine (test code = POC 1.0 0.5-1.4 Creatinine) [facility] [id number] 22:03:00 Test Item Value Reference Range Interpretation Comments eGFR (test code = eGFR) 80 [facility]ballYyjoixzQCZKGJGOZMLC9641-50-30 13:28:00 Test Item Value Reference Range Interpretation Comments POC Sodium (test code = POC Sodium) 140 135-145 [facility] HospitalOtxnhypLHZYILVKFGYW9703-46-20 13:28:00 Test Item Value Reference Range Interpretation Comments POC Potassium (test code = POC 4.2 3.5-5.1 Potassium) [place] 087971-06-03 13:28:00 Test Item Value Reference Range Interpretation Comments POC Chloride (test code = POC Chloride) 99 95-109 [place] 087971-06-03 13:28:00 Test Item Value Reference Range Interpretation Comments POC Carbon Dioxide (test code = POC 32 24-32 Carbon Dioxide) [facility] HospitalKlutlglREKMTOETEWRF8794-23-27 13:28:00 Test Item Value Reference Range Interpretation Comments POC BUN (test code = POC BUN) 24 7-22 [place] [address]-06-03 13:28:00 Test Item Value Reference Range Interpretation Comments POC Creatinine (test code = POC 1.1 0.5-1.4 Creatinine) [facility] HospitalWqyxufqONHFQREFUYNO1888-06-67 13:28:00 Test Item Value Reference Range Interpretation Comments POC Glucose (test code = POC Glucose) 165 70-99 [facility] HospitalTpofwfrBCCIYAONWDTJ7652-48-39 13:28:00 Test Item Value Reference Range Interpretation Comments POC Ion Ca (test code = POC Ion Ca) 1.28 1.05-1.25 [place] [address]-06-03 13:28:00 Test Item Value Reference Range Interpretation Comments POC Hemoglobin (test code = POC 14.3 14.0-18.0 Hemoglobin) [place] 087971-06-03 13:28:00 Test Item Value Reference Range Interpretation Comments POC Hematocrit (test code = POC 42.0 42.0-54.0 Hematocrit) [facility] HospitalRsaudvqLSEPSPXHEGUV0554-24-06 13:28:00 Test Item Value Reference Range Interpretation Comments POC AGAP (test code = POC AGAP) 14.0 10.0-20.0 [place] 087971-06-03 13:28:00 Test Item Value Reference Range Interpretation Comments eGFR (test code = eGFR) 72 [place] 087971-06-03 13:28:00 Test Item Value Reference Range Interpretation Comments POC Disclaimer (test code See Note *NA*(04/18/21 = POC Disclaimer) 8:28 AM) [place] 362331-06-03 12:54:00 Test Item Value Reference Range Interpretation Comments Glucose Lvl (test code = Glucose Lvl) 158 70-99 [place] 362331-06-03 12:54:00 Test Item Value Reference Range Interpretation Comments BUN (test code = BUN) 20 7-22 [place] 362331-06-03 12:54:00 Test Item Value Reference Range Interpretation Comments Creatinine Lvl (test code = Creatinine 1.08 0.50-1.40 Lvl) [place] 362331-06-03 12:54:00 Test Item Value Reference Range Interpretation Comments Sodium Lvl (test code = Sodium Lvl) 138 135-145 [place] 362331-06-03 12:54:00 Test Item Value Reference Range Interpretation Comments Potassium Lvl (test code = Potassium 4.1 3.5-5.1 Lvl) [place] 362331-06-03 12:54:00 Test Item Value Reference Range Interpretation Comments Chloride Lvl (test code = Chloride Lvl) 104 95-109 [place] 362331-06-03 12:54:00 Test Item Value Reference Range Interpretation Comments CO2 (test code = CO2) 29 24-32 [place] 362331-06-03 12:54:00 Test Item Value Reference Range Interpretation Comments Calcium Lvl (test code = Calcium Lvl) 9.3 8.5-10.5 [place] 362331-06-03 12:54:00 Test Item Value Reference Range Interpretation Comments AGAP (test code = AGAP) 9.1 10.0-20.0 [place] 362331-06-03 12:54:00 Test Item Value Reference Range Interpretation Comments eGFR (test code = eGFR) 73 [place] 811651-06-03 12:54:00 Test Item Value Reference Range Interpretation Comments WBC (test code = WBC) 6.9 3.7-10.4 [place] [address]-06-03 12:54:00 Test Item Value Reference Range Interpretation Comments RBC (test code = RBC) 4.52 4.70-6.10 [place] 811651-06-03 12:54:00 Test Item Value Reference Range Interpretation Comments Hgb (test code = Hgb) 14.3 14.0-18.0 [facility] CenterQtuqnioLKUJNYHORC2447-87-79 12:54:00 Test Item Value Reference Range Interpretation Comments Hct (test code = Hct) 41.7 42.0-54.0 [facility] CenterQpuvpvvAADUNETMMC0612-44-04 12:54:00 Test Item Value Reference Range Interpretation Comments MCV (test code = MCV) 92.4 80.0-94.0 [facility] CenterOpslyxgTWOYSQDYHY9697-26-80 12:54:00 Test Item Value Reference Range Interpretation Comments MCH (test code = MCH) 31.5 pg 27.0-31.0 [facility] CenterIeufvczAVGLSSLTVH4065-39-40 12:54:00 Test Item Value Reference Range Interpretation Comments MCHC (test code = MCHC) 34.2 32.0-36.0 [place] 811651-06-03 12:54:00 Test Item Value Reference Range Interpretation Comments RDW (test code = RDW) 13.6 11.5-14.5 [facility] CenterItembbbQVPTIAJNLA2652-28-94 12:54:00 Test Item Value Reference Range Interpretation Comments Platelet (test code = Platelet) 169 133-450 [facility] CenterVsvsxuuMPXNXLSEHM7589-84-09 12:54:00 Test Item Value Reference Range Interpretation Comments MPV (test code = MPV) 9.6 7.4-10.4 [place] 811651-06-03 12:54:00 Test Item Value Reference Range Interpretation Comments PTT (test code = PTT) 35.1 s 22.9-35.8 [place] 811651-06-03 12:54:00 Test Item Value Reference Range Interpretation Comments PT (test code = PT) 16.2 s 12.0-14.7 [place] [address]-06-03 12:54:00 Test Item Value Reference Range Interpretation Comments INR (test code = INR) 1.33 1 0.85-1.17 [place] [address]-06-03 12:54:00 Test Item Value Reference Range Interpretation Comments Segs (test code = Segs) 50.4 45.0-75.0 [place] 811651-06-03 12:54:00 Test Item Value Reference Range Interpretation Comments Lymphocytes (test code = Lymphocytes) 32.1 20.0-40.0 [place] [address]-06-03 12:54:00 Test Item Value Reference Range Interpretation Comments Monocytes (test code = Monocytes) 13.2 2.0-12.0 [place] [address]-06-03 12:54:00 Test Item Value Reference Range Interpretation Comments Eosinophils (test code = 3.5 See_Comment [A utomated message] The Eosinophils) system which ge nerated this result tra nsmitted reference range : <=4.0. The reference r qi was not used to int erpret this result as normal/abnormal . [place] 811651-06-03 12:54:00 Test Item Value Reference Range Interpretation Comments Basophils (test code = 0.8 See_Comment [Aut omated message] The Basophils) system which ge nerated this result tra nsmitted reference range : <=1.0. The reference r qi was not used to int erpret this result as normal/abnormal . [place] [address]-06-03 12:54:00 Test Item Value Reference Range Interpretation Comments Neutrophils # (test code = Neutrophils 3.5 1.5-8.1 #) [place] 811651-06-03 12:54:00 Test Item Value Reference Range Interpretation Comments Lymphocytes # (test code = Lymphocytes 2.2 1.0-5.5 #) [place] 811651-06-03 12:54:00 Test Item Value Reference Range Interpretation Comments Monocytes # (test code 0.9 See_Comment [Aut omated message] The = Monocytes #) system which generated this result tra nsmitted reference range : <=0.8. The reference r qi was not used to int erpret this result as normal/abnormal . [place] [address]-06-03 12:54:00 Test Item Value Reference Range Interpretation Comments Eosinophils # (test code 0.2 See_Comment [A utomated message] The = Eosinophils #) system whic h generated this result tra nsmitted reference range : <=0.5. The reference r qi was not used to int erpret this result as normal/abnormal . [place] [address]-06-03 12:54:00 Test Item Value Reference Range Interpretation Comments Basophils # (test code 0.1 See_Comment [Aut omated message] The = Basophils #) system which generated this result tra nsmitted reference range : <=0.2. The reference r qi was not used to int erpret this result as normal/abnormal . [facility] HospitalMcjnoquYWGTEADIBH1265-02-41 18:43:00 Test Item Value Reference Range Interpretation Comments Coronavirus (COVID-19) Not Detected (04/16/21 JANNA (test code = 1:43 PM) Coronavirus (COVID-19) JANNA) [facility] GLUCOSE (AUTOMATED)2020-10-03 22:57:00 Test Item Value Reference Range Interpretation Comments POCT GLU (test code = 233 mg/dL 70-110 H Notifi ed Provider [id number]) Lab Interpretation (test Abnormal code = 42785-8) [facility] GLUCOSE (AUTOMATED)2020-10-03 21:05:00 Test Item Value Reference Range Interpretation Comments POCT GLU (test code = 9092047163) 282 mg/dL 70-110 H Lab Interpretation (test code = Abnormal 24732-6) [facility] GLUCOSE (AUTOMATED)2020-10-03 20:12:00 Test Item Value Reference Range Interpretation Comments POCT GLU (test code = 9461093121) 307 mg/dL 70-110 H Lab Interpretation (test code = Abnormal 26325-3) [facility] GLUCOSE (AUTOMATED)2020-10-03 17:27:00 Test Item Value Reference Range Interpretation Comments POCT GLU (test code = 302 mg/dL 70-110 H Notifi ed Provider [id number]) Lab Interpretation (test Abnormal code = 68982-6) [facility] GLUCOSE (AUTOMATED)2020-10-03 13:41:00 Test Item Value Reference Range Interpretation Comments POCT GLU (test code = 140 mg/dL 70-110 H Notifi ed Provider [id number]) Lab Interpretation (test Abnormal code = 61500-7) [facility] NFD-[id number] 12:14:00 Test Item Value Reference Range Interpretation Comments NT-proBNP (test code 722 pg/mL See_Comment H [Autom ated = [id number]) message] The system which generated this result transmitted reference range : <=125. The reference range was not used to interpret this result as normal/abnormal . KARSON (test code = KARSON) Biotin has been reported to cause a negative bias, interpret results relative to patient's use of biotin. Lab Interpretation Abnormal (test code = 26679-8) [facility] (NA, K, CL, CO2, GLUCOSE, BUN, CREATININE, CA)2020-10-03 12:01:00 Test Item Value Reference Range Interpretation Comments NA (test code = 135 mmol/L 135-145 6365781646) K (test code = 3.5 mmol/L 3.5-5 4111104289) CL (test code = 102 mmol/L 98-108 5816116472) CO2 TOTAL (test code = 30 mmol/L 23-31 3168460351) AGAP (test code = 2-16 1932746618) BUN (test code = 28 mg/dL 7-23 H 6914008246) GLUCOSE (test code = 140 mg/dL 70-110 H 7341931865) CREATININE (test code = 0.96 mg/dL 0.6-1.25 2263669751) CALCIUM (test code = 8.6 mg/dL 8.6-10.6 5086998649) eGFR Calculation mL/min/1.73m2 (Non-) (test code = 6516599831) eGFR Calculation mL/min/1.73m2 () (test code = 1923978087) KARSON (test code = KARSON) Association of Glomerular Filtration Rate (GFR) and Staging of Kidney Disease* + --+ --+ ------+| GFR (mL/min/1.73 m2) ?| With Kidney Damage ?| ?Without Kidney Damage+ --------+ --------+ +| ?>90 ?| ?Stage one ?| ? Normal ?+ ---+ ---+ -------+| ?60-89 ?| ?Stage two ?| ? Decreased GFR ? + --+ --+ ------+| ?30-59 ?| ?Stage three ?| ? Stage three ? + --+ --+ ------+| ?15-29 ?| ?Stage four ? | ? Stage four ?+ ---+ ---+ -------+| ?<15 (or dialysis) ? ?| ?Stage five ? | ? Stage five ?+ ---+ ---+ -------+ *Each stage assumes the associated GFR level has been in effect for at least three months. ?Stages 1 to 5, with or without kidney disease, indicate chronic kidney disease. Notes: Determination of stages one and two (with eGFR >59mL/min/1.73 m2) requires estimation of kidney damage for at least three months as defined by structural or functional abnormalities of the kidney, manifested by either:Pathological abnormalities or Markers of kidney damage (including abnormalities in the composition of the blood or urine or abnormalities in imaging tests). Lab Interpretation Abnormal (test code = 54944-5) [facility] 12:01:00 Test Item Value Reference Range Interpretation Comments MAGNESIUM (test code = 6292860272) 2.2 mg/dL 1.7-2.4 Lab Interpretation (test code = Normal 80356-3) [facility] COVID [id number] 11:39:00COVID DMT InterpretationInterpretation/Recommendations: Molecular NAAT Test Results for Active Infection by SARS-CoV-2 Virus: This result indicates that the patient has tested negative on one occasion for the SARS-CoV-2 virus that causes COVID-19 illness. The most likely interpretation for approximately two-thirds of patients with a negative test is that the patient is truly negative and has not beeninfected with the SARS-CoV-2 virus. However, for those tested using a nasopharyngeal sample, there is approximately a vza-jf-chwte chance that the patient was infected and the result of the first test is a "false" negative. This occurs because the virus is predominantly in the lung and out of reach ofthe nasopharyngeal swab. If the patient continues to have persistent or worsening symptoms, a repeatNAAT test (PCR, Rapid ID Now, etc.) should be performed. Tests for IgM and/or IgG Antibodies to SARS-CoV-2 Virus: Testing for IgM and IgG antibodies 1-3 weeks after illness onset will indicate whether the patient has produced antibodies to the virus. At this time, it is not known if the production of antibodies indicates whether the patient is immune to future infections with the SARS-CoV-2 virus. ? ? Interpretation Result Comments:These interpretation comments are based upon aggregate COVID-19 test results pooled from [facility]. They apply to the following tests offered at [facility] and assume the acceptable specimen type(s) were used:A. Tests for the Identification of SARS-CoV-2 RNA (Molecular NAAT Tests):SARS-CoV-2 PCR assays including [place] Aptima, [place] Fusion, Mullins RealTime, and Momspot Xpert Xpress. SARS-CoV-2 Rapid ID NOW by the ID NOW assay.? B. Tests for the Identification of SARS-CoV-2 Antibodies: Chemiluminescent immunoassays including Access SARS-CoV-2 IgM (DXI 600), Inspire CommerceS Iioq-DKKZ-VkC-2 IgG (Vitros 5600 and Vitros 3600), and Mullins SARS-CoV-2 IgG (CURTAIN WORKER I System). ?These interpretations are autopopulated into [facility] based on computerized algorithms matching an interpretation code to the patient's set of test results, and a clinical pathologist evaluates the comments for accuracy. However, these comments do not consider testing a patient may have had outside of the [facility] system. If results for COVID-19 infection continue to be negative in the context of a suspected viral respiratory illness, it is possible the patient may have an infection with another respiratory virus. Influenza testing and a respiratory pathogen panel if clinically indicated may be beneficial in this setting. If there continues to nicole high degree of clinical suspicion for COVID-19 illness despite multiple negative tests on nasopharyngeal specimens, then it may be necessary to test the patient for the SARS-CoV-2 virus using lower respiratory tract samples (such as sputum, bronchoalveolar lavage fluid (BAL), tracheal aspirate, etc.). ?[facility] LABORATORY SERVICESCOVID SuccytbUCGN-XiV-3 Rapid ID NOW (no units) ? ? Date ? Value ? 09/27/2020 ? Not Detected ? [facility]2020-10-03 02:18:00 Test Item Value Reference Range Interpretation Comments POCT GLU (test code = 6663997268) 253 mg/dL 70-110 H Lab Interpretation (test code = Abnormal 58771-4) [facility] GLUCOSE (AUTOMATED)2020-10-03 00:29:00 Test Item Value Reference Range Interpretation Comments POCT GLU (test code = 203 mg/dL 70-110 H Notifi ed Provider [id number]) Lab Interpretation (test Abnormal code = 69265-8) [facility] GLUCOSE (AUTOMATED)2020-10-02 20:08:00 Test Item Value Reference Range Interpretation Comments POCT GLU (test code = 7868993567) 207 mg/dL 70-110 H Lab Interpretation (test code = Abnormal 08572-2) [facility] GLUCOSE (AUTOMATED)2020-10-02 16:11:00 Test Item Value Reference Range Interpretation Comments POCT GLU (test code = 0540758275) 230 mg/dL 70-110 H Lab Interpretation (test code = Abnormal 22742-4) [facility] GLUCOSE (AUTOMATED)2020-10-02 14:12:00 Test Item Value Reference Range Interpretation Comments POCT GLU (test code = 165 mg/dL 70-110 H Notifi ed Provider [id number]) Lab Interpretation (test Abnormal code = 31502-9) [facility] METABOLIC PANEL (NA, K, CL, CO2, GLUCOSE, BUN, CREATININE, CA)2020-10-02 13:48:00 Test Item Value Reference Range Interpretation Comments NA (test code = 136 mmol/L 135-145 7182460881) K (test code = 4.0 mmol/L 3.5-5 7784860953) CL (test code = 98 mmol/L 98-108 1981924319) CO2 TOTAL (test code = 31 mmol/L 23-31 3018490364) AGAP (test code = 2-16 7910933384) BUN (test code = 29 mg/dL 7-23 H 5002334094) GLUCOSE (test code = 148 mg/dL 70-110 H 8283995138) CREATININE (test code = 1.11 mg/dL 0.6-1.25 0556615950) CALCIUM (test code = 8.9 mg/dL 8.6-10.6 5248927861) eGFR Calculation mL/min/1.73m2 (Non-) (test code = 9220462046) eGFR Calculation mL/min/1.73m2 () (test code = 0477516973) KARSON (test code = KARSON) Association of Glomerular Filtration Rate (GFR) and Staging of Kidney Disease* + --+ --+ ------+| GFR (mL/min/1.73 m2) ?| With Kidney Damage ?| ?Without Kidney Damage+ --------+ --------+ +| ?>90 ?| ?Stage one ?| ? Normal ?+ ---+ ---+ -------+| ?60-89 ?| ?Stage two ?| ? Decreased GFR ? + --+ --+ ------+| ?30-59 ?| ?Stage three ?| ? Stage three ? + --+ --+ ------+| ?15-29 ?| ?Stage four ? | ? Stage four ?+ ---+ ---+ -------+| ?<15 (or dialysis) ? ?| ?Stage five ? | ? Stage five ?+ ---+ ---+ -------+ *Each stage assumes the associated GFR level has been in effect for at least three months. ?Stages 1 to 5, with or without kidney disease, indicate chronic kidney disease. Notes: Determination of stages one and two (with eGFR >59mL/min/1.73 m2) requires estimation of kidney damage for at least three months as defined by structural or functional abnormalities of the kidney, manifested by either:Pathological abnormalities or Markers of kidney damage (including abnormalities in the composition of the blood or urine or abnormalities in imaging tests). Lab Interpretation Abnormal (test code = 73057-7) [facility]2020-11-17 13:48:00 Test Item Value Reference Range Interpretation Comments MAGNESIUM (test code = 4761593048) 2.2 mg/dL 1.7-2.4 Lab Interpretation (test code = Normal 93499-6) [facility] GLUCOSE (AUTOMATED)2020-10-02 10:37:00 Test Item Value Reference Range Interpretation Comments POCT GLU (test code = 4691986368) 150 mg/dL 70-110 H Lab Interpretation (test code = Abnormal 64977-3) [facility] GLUCOSE (AUTOMATED)2020-10-02 06:07:00 Test Item Value Reference Range Interpretation Comments POCT GLU (test code = 4529089147) 176 mg/dL 70-110 H Lab Interpretation (test code = Abnormal 36331-5) [facility] GLUCOSE (AUTOMATED)2020-10-02 02:30:00 Test Item Value Reference Range Interpretation Comments POCT GLU (test code = 2008616051) 246 mg/dL 70-110 H Lab Interpretation (test code = Abnormal 47829-2) [facility] GLUCOSE (AUTOMATED)2020-10-01 23:06:00 Test Item Value Reference Range Interpretation Comments POCT GLU (test code = 7675672446) 243 mg/dL 70-110 H Lab Interpretation (test code = Abnormal 39723-0) [facility] MYOCARDIAL VIABILITY [id number] 22:15:07Impression: 1) 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 Images interpreted by ?Dr Malhotra ar Final interpretation by Reji Randall MD. Resting myocardial perfusion imaging report Type:NTG enhanced resting GATED SPECT IMAGING WITH ?Technetium 99 labeledtetrofosmin. Indication: Chest Pain Clinical history: Viability eval Please perform NTG enhanced rest 1stprotocol ( give 1-2 SL NTG prior to rest imaging). Procedure: Gated SPECT imaging was acquired ?five minutes after 2 SL NTGadministration following ?the injection of 35 millicuries of technetiumlabeled tetrofosmin.Resting EKG revealed afib with septal/ anterior infarct pattern ? Findings: The overall quality of the study was Adequate. SPECT images demonstrate severely reduced ?uptake at the apex, apicalsegments, and mid anteriorwall with aneurysmal apex. Gated SPECT images demonstrate akinesis of the hypoperfused segments, withsevere hypokinesis in the other segments. Stress Values: ?EDV = 228 mL; ESV = 180 mL; EF = 21%. [facility], Radiant Results Inft User - 10/01/2020 4:16 PM CSTResting myocardial perfusion imaging reportType: NTG enhanced resting GATED SPECT IMAGING WITH Technetium 99 labeledtetrofosmin.Indication: Chest PainClinical history: Viability eval Please perform NTG enhanced rest 1stprotocol ( give 1-2 SL NTG priorto rest imaging).Procedure:Gated SPECT imaging was acquired five minutes after 2 SL NTGadministration following the injection of 35 millicuries of technetiumlabeled tetrofosmin.Resting EKG revealed afib with septal/ anterior infarct pattern Findings:The overall quality of the study was Adequate.SPECT images demonstrate severely reduced uptake at the apex, apicalsegments, and mid anterior wall with aneurysmal apex. Gated SPECT images demonstrate akinesis of the hypoperfused segments, withsevere hypokinesis in the other segments. Stress Values: EDV = 228 mL; ESV = 180 mL; EF = 21%.IMPRESSIONImpression: 1) Evidence of complete viability in the RCA and LCX territory.2) Non-viable scar at the apex, apical segment and mid anterior wall3) Moderately dilated LV, with severely reduced function, with aneurysmalapical segments, and wall motion abnormalities as above.Images interpreted by Dr Rey interpretation by Reji Randall MD.[facility] GLUCOSE (AUTOMATED)2020-10-01 16:35:00 Test Item Value Reference Range Interpretation Comments POCT GLU (test code = 6516332220) 229 mg/dL 70-110 H Lab Interpretation (test code = Abnormal 35829-7) [facility] GLUCOSE (AUTOMATED)2020-10-01 13:40:00 Test Item Value Reference Range Interpretation Comments POCT GLU (test code = 6940310793) 244 mg/dL 70-110 H Lab Interpretation (test code = Abnormal 49541-0) [facility] (NA, K, CL, CO2, GLUCOSE, BUN, CREATININE, CA)2020-10-01 12:51:00 Test Item Value Reference Range Interpretation Comments NA (test code = 134 mmol/L 135-145 L 8441062116) K (test code = 3.9 mmol/L 3.5-5 5580565877) CL (test code = 97 mmol/L 98-108 L 3313055381) CO2 TOTAL (test code = 32 mmol/L 23-31 H 2542145363) AGAP (test code = 2-16 1430604896) BUN (test code = 23 mg/dL 7-23 7301066935) GLUCOSE (test code = 237 mg/dL 70-110 H 4911168555) CREATININE (test code = 1.01 mg/dL 0.6-1.25 8894593827) CALCIUM (test code = 8.6 mg/dL 8.6-10.6 6110953430) eGFR Calculation mL/min/1.73m2 (Non-) (test code = 4089178164) eGFR Calculation mL/min/1.73m2 () (test code = 2108692294) KARSON (test code = KARSON) Association of Glomerular Filtration Rate (GFR) and Staging of Kidney Disease* + --+ --+ ------+| GFR (mL/min/1.73 m2) ?| With Kidney Damage ?| ?Without Kidney Damage+ --------+ --------+ +| ?>90 ?| ?Stage one ?| ? Normal ?+ ---+ ---+ -------+| ?60-89 ?| ?Stage two ?| ? Decreased GFR ? + --+ --+ ------+| ?30-59 ?| ?Stage three ?| ? Stage three ? + --+ --+ ------+| ?15-29 ?| ?Stage four ? | ? Stage four ?+ ---+ ---+ -------+| ?<15 (or dialysis) ? ?| ?Stage five ? | ? Stage five ?+ ---+ ---+ -------+ *Each stage assumes the associated GFR level has been in effect for at least three months. ?Stages 1 to 5, with or without kidney disease, indicate chronic kidney disease. Notes: Determination of stages one and two (with eGFR >59mL/min/1.73 m2) requires estimation of kidney damage for at least three months as defined by structural or functional abnormalities of the kidney, manifested by either:Pathological abnormalities or Markers of kidney damage (including abnormalities in the composition of the blood or urine or abnormalities in imaging tests). Lab Interpretation Abnormal (test code = 53943-1) [facility]2020-[facility]-16 12:51:00 Test Item Value Reference Range Interpretation Comments MAGNESIUM (test code = 5574031428) 1.9 mg/dL 1.7-2.4 Lab Interpretation (test code = Normal 19809-3) [facility]2020-10-01 10:40:00 Test Item Value Reference Range Interpretation Comments POCT GLU (test code = 3235683219) 230 mg/dL 70-110 H Lab Interpretation (test code = Abnormal 38025-2) [facility] GLUCOSE (AUTOMATED)2020-10-01 06:00:00 Test Item Value Reference Range Interpretation Comments POCT GLU (test code = 1990925931) 281 mg/dL 70-110 H Lab Interpretation (test code = Abnormal 74054-5) [facility] GLUCOSE (AUTOMATED)2020-10-01 01:18:00 Test Item Value Reference Range Interpretation Comments POCT GLU (test code = 7478046588) 201 mg/dL 70-110 H Lab Interpretation (test code = Abnormal 80079-2) [facility] GLUCOSE (AUTOMATED)2020-09-30 22:45:00 Test Item Value Reference Range Interpretation Comments POCT GLU (test code = 4681310992) 239 mg/dL 70-110 H Lab Interpretation (test code = Abnormal 97742-6) [facility] GLUCOSE (AUTOMATED)2020-09-30 18:42:00 Test Item Value Reference Range Interpretation Comments POCT GLU (test code = 305 mg/dL 70-110 H Notifi ed Provider [id number]) Lab Interpretation (test Abnormal code = 99065-8) [facility] GLUCOSE (AUTOMATED)2020-09-30 15:23:00 Test Item Value Reference Range Interpretation Comments POCT GLU (test code = 7577791081) 259 mg/dL 70-110 H Lab Interpretation (test code = Abnormal 17045-9) [facility] METABOLIC PANEL (NA, K, CL, CO2, GLUCOSE, BUN, CREATININE, CA)2020-09-30 11:28:00 Test Item Value Reference Range Interpretation Comments NA (test code = 133 mmol/L 135-145 L 5084934581) K (test code = 4.1 mmol/L 3.5-5 8783395052) CL (test code = 98 mmol/L 98-108 1790489769) CO2 TOTAL (test code = 29 mmol/L 23-31 9180090508) AGAP (test code = 2-16 1761952106) BUN (test code = 23 mg/dL 7-23 5303841645) GLUCOSE (test code = 275 mg/dL 70-110 H 0374111257) CREATININE (test code = 0.91 mg/dL 0.6-1.25 0197983954) CALCIUM (test code = 8.6 mg/dL 8.6-10.6 1646756989) eGFR Calculation mL/min/1.73m2 (Non-) (test code = 4856544908) eGFR Calculation mL/min/1.73m2 () (test code = 0229796305) KARSON (test code = KARSON) Association of Glomerular Filtration Rate (GFR) and Staging of Kidney Disease* + --+ --+ ------+| GFR (mL/min/1.73 m2) ?| With Kidney Damage ?| ?Without Kidney Damage+ --------+ --------+ +| ?>90 ?| ?Stage one ?| ? Normal ?+ ---+ ---+ -------+| ?60-89 ?| ?Stage two ?| ? Decreased GFR ? + --+ --+ ------+| ?30-59 ?| ?Stage three ?| ? Stage three ? + --+ --+ ------+| ?15-29 ?| ?Stage four ? | ? Stage four ?+ ---+ ---+ -------+| ?<15 (or dialysis) ? ?| ?Stage five ? | ? Stage five ?+ ---+ ---+ -------+ *Each stage assumes the associated GFR level has been in effect for at least three months. ?Stages 1 to 5, with or without kidney disease, indicate chronic kidney disease. Notes: Determination of stages one and two (with eGFR >59mL/min/1.73 m2) requires estimation of kidney damage for at least three months as defined by structural or functional abnormalities of the kidney, manifested by either:Pathological abnormalities or Markers of kidney damage (including abnormalities in the composition of the blood or urine or abnormalities in imaging tests). Lab Interpretation Abnormal (test code = 27185-7) [facility]2020-[facility]-15 11:28:00 Test Item Value Reference Range Interpretation Comments MAGNESIUM (test code = 7017150132) 1.9 mg/dL 1.7-2.4 Lab Interpretation (test code = Normal 47402-8) [facility] (for use with Heparin Drip)2020-09-30 11:23:00 Test Item Value Reference Range Interpretation Comments APTT Patient (test code = See_Comment [ Automated message] 3173-2) The system [employer] generated this result transmitted ref erence range: 26 - 36 Seconds. The re ference range was not u sed to interpret this result as normal/abnor mal. Lab Interpretation (test Normal code = 25867-0) [facility] GLUCOSE (AUTOMATED)2020-09-30 10:54:00 Test Item Value Reference Range Interpretation Comments POCT GLU (test code = 2920907826) 267 mg/dL 70-110 H Lab Interpretation (test code = Abnormal 11460-5) [facility] GLUCOSE (AUTOMATED)2020-09-30 05:38:00 Test Item Value Reference Range Interpretation Comments POCT GLU (test code = 8755956489) 217 mg/dL 70-110 H Lab Interpretation (test code = Abnormal 13994-6) [facility] GLUCOSE (AUTOMATED)2020-09-30 03:07:00 Test Item Value Reference Range Interpretation Comments POCT GLU (test code = 3513513182) 234 mg/dL 70-110 H Lab Interpretation (test code = Abnormal 28969-2) [facility] GLUCOSE (AUTOMATED)2020-09-30 00:33:00 Test Item Value Reference Range Interpretation Comments POCT GLU (test code = 292 mg/dL 70-110 H Notifi ed Provider [id number]) Lab Interpretation (test Abnormal code = 25812-2) [facility] GLUCOSE (AUTOMATED)2020-09-29 21:54:00 Test Item Value Reference Range Interpretation Comments POCT GLU (test code = 0395377464) 414 mg/dL 70-110 H Lab Interpretation (test code = Abnormal 76248-1) [facility] GLUCOSE (AUTOMATED)2020-09-29 18:31:00 Test Item Value Reference Range Interpretation Comments POCT GLU (test code = 341 mg/dL 70-110 H Notifi ed Provider [id number]) Lab Interpretation (test Abnormal code = 89990-8) [facility] GLUCOSE (AUTOMATED)2020-09-29 14:49:00 Test Item Value Reference Range Interpretation Comments POCT GLU (test code = 0890988383) 146 mg/dL 70-110 H Lab Interpretation (test code = Abnormal 53631-8) [facility] GLUCOSE (AUTOMATED)2020-09-29 11:44:00 Test Item Value Reference Range Interpretation Comments POCT GLU (test code = 6494034832) 139 mg/dL 70-110 H Lab Interpretation (test code = Abnormal 19848-1) [facility]YCOSYLATED HEMOGLOBIN (A1C)2020-09-29 09:15:00 Test Item Value Reference Range Interpretation Comments HGB A1C (test code = 4548-4) 8.8 % 4-6 H Lab Interpretation (test code = Abnormal 00474-1) [facility] CampusTroponin [id number] 08:42:00 Test Item Value Reference Range Interpretation Comments TROPONIN I (test 0.101 ng/mL See_Comment H [Automated code = 5739110641) message] The system which generated this result transmitted reference range : <=0.034. The reference range was not used to interpret this result as normal/abnormal . KARSON (test code = Equal or Less than KARSON) 0.034 ng/ml---Normal ?Note: Cardiac troponin begins to rise 3-4 hours after the onset of ischemia. Repeat in 4-6 hours if the sample was drawn within 3-4 hours of the onset of the symptom and found normal. Between 0.035 and 0.120 ng/mL--- Borderline. Questionable myocardial injury or necrosis ? ?Note: Serial measurement may be necessary to confirm or exclude the diagnosis of myocardial injury or necrosis; Clinical correlation (symptoms, EKGs, imaging studies, and others) required; Repeat in 4-6 hours if clinically indicated. ? Equal or Higher than 0.121 ng/mL---Abnormal. Myocardial Injury or Necrosis Likely ? Biotin has been reported to cause a negative bias, interpret results relative to patient's use of biotin. ? Lab Interpretation Abnormal (test code = 47504-1) [facility] (NA, K, CL, CO2, GLUCOSE, BUN, CREATININE, CA)2020-09-29 08:25:00 Test Item Value Reference Range Interpretation Comments NA (test code = 135 mmol/L 135-145 4515161443) K (test code = 3.9 mmol/L 3.5-5 9021771130) CL (test code = 100 mmol/L 98-108 4053372840) CO2 TOTAL (test code = 32 mmol/L 23-31 H 6504887363) AGAP (test code = 2-16 1465876159) BUN (test code = 17 mg/dL 7-23 5481897060) GLUCOSE (test code = 213 mg/dL 70-110 H 3475090058) CREATININE (test code = 0.76 mg/dL 0.6-1.25 7748593270) CALCIUM (test code = 8.8 mg/dL 8.6-10.6 1563873707) eGFR Calculation mL/min/1.73m2 (Non-) (test code = 7131026868) eGFR Calculation mL/min/1.73m2 () (test code = 9107445922) KARSON (test code = KARSON) Association of Glomerular Filtration Rate (GFR) and Staging of Kidney Disease* + --+ --+ ------+| GFR (mL/min/1.73 m2) ?| With Kidney Damage ?| ?Without Kidney Damage+ --------+ --------+ +| ?>90 ?| ?Stage one ?| ? Normal ?+ ---+ ---+ -------+| ?60-89 ?| ?Stage two ?| ? Decreased GFR ? + --+ --+ ------+| ?30-59 ?| ?Stage three ?| ? Stage three ? + --+ --+ ------+| ?15-29 ?| ?Stage four ? | ? Stage four ?+ ---+ ---+ -------+| ?<15 (or dialysis) ? ?| ?Stage five ? | ? Stage five ?+ ---+ ---+ -------+ *Each stage assumes the associated GFR level has been in effect for at least three months. ?Stages 1 to 5, with or without kidney disease, indicate chronic kidney disease. Notes: Determination of stages one and two (with eGFR >59mL/min/1.73 m2) requires estimation of kidney damage for at least three months as defined by structural or functional abnormalities of the kidney, manifested by either:Pathological abnormalities or Markers of kidney damage (including abnormalities in the composition of the blood or urine or abnormalities in imaging tests). Lab Interpretation Abnormal (test code = 29076-8) [facility] Test Item Value Reference Range Interpretation Comments MAGNESIUM (test code = 2020321482) 2.0 mg/dL 1.7-2.4 Lab Interpretation (test code = Normal 33807-3) [facility] (for use with Heparin Drip)2020-09-29 08:02:00 Test Item Value Reference Range Interpretation Comments APTT Patient (test code See_Comment H [Au tomated message] = 3173-2) The system [employer] generated this result transmitted ref erence range: 26 - 36 Seconds. The reference range was not used to int erpret this result as normal/abnormal . Lab Interpretation (test Abnormal code = 48077-1) [facility] GLUCOSE (AUTOMATED)2020-09-29 07:46:00 Test Item Value Reference Range Interpretation Comments POCT GLU (test code = 6585258731) 213 mg/dL 70-110 H Lab Interpretation (test code = Abnormal 29425-6) [facility] GLUCOSE (AUTOMATED)2020-09-29 04:38:00 Test Item Value Reference Range Interpretation Comments POCT GLU (test code = 8650158104) 335 mg/dL 70-110 H Lab Interpretation (test code = Abnormal 23576-0) [facility] GLUCOSE (AUTOMATED)2020-09-29 01:41:00 Test Item Value Reference Range Interpretation Comments POCT GLU (test code = 9142386764) 326 mg/dL 70-110 H Lab Interpretation (test code = Abnormal 15519-7) [facility] (for use with Heparin Drip)2020-09-28 23:01:00 Test Item Value Reference Range Interpretation Comments APTT Patient (test code = See_Comment [ Automated message] 3173-2) The system [employer] generated this result transmitted ref erence range: 26 - 36 Seconds. The re ference range was not u sed to interpret this result as normal/abnor mal. Lab Interpretation (test Normal code = 92300-2) [facility] GLUCOSE (AUTOMATED)2020-09-28 13:53:00 Test Item Value Reference Range Interpretation Comments POCT GLU (test code = 4349446761) 192 mg/dL 70-110 H Lab Interpretation (test code = Abnormal 49857-8) [facility] [id number] 11:02:00 Test Item Value Reference Range Interpretation Comments TROPONIN I (test 0.184 ng/mL See_Comment H [Automated code = 7745375672) message] The system which generated this result transmitted reference range : <=0.034. The reference range was not used to interpret this result as normal/abnormal . KARSON (test code = Equal or Less than KARSON) 0.034 ng/ml---Normal ?Note: Cardiac troponin begins to rise 3-4 hours after the onset of ischemia. Repeat in 4-6 hours if the sample was drawn within 3-4 hours of the onset of the symptom and found normal. Between 0.035 and 0.120 ng/mL--- Borderline. Questionable myocardial injury or necrosis ? ?Note: Serial measurement may be necessary to confirm or exclude the diagnosis of myocardial injury or necrosis; Clinical correlation (symptoms, EKGs, imaging studies, and others) required; Repeat in 4-6 hours if clinically indicated. ? Equal or Higher than 0.121 ng/mL---Abnormal. Myocardial Injury or Necrosis Likely ? Biotin has been reported to cause a negative bias, interpret results relative to patient's use of biotin. ? Lab Interpretation Abnormal (test code = 12395-3) [facility] (14455)(TOTAL CHOLESTEROL, TRIGLYCERIDES, HDL)2020-09-28 10:35:00 Test Item Value Reference Range Interpretation Comments CHOL (test code = 150 mg/dL 120-200 1773901982) HDL (test code = 40 mg/dL >40 L 8811436521) HDLC RATIO (test code = See_Comment [Au tomated message] 6149982838) The system [employer] generated this result transmit miriam reference range : <=5.0. The refe rence range was not u sed to interpret th is result as normal/abnormal . TRIG (test code = 134 mg/dL 30-170 0984143046) LDL CHOL (test code = 83 mg/dL See_Comment [Auto mated message] 71753-1) The system [employer] generated this result transmit miriam reference range : <=160. The refe rence range was not u sed to interpret th is result as normal/abnormal . VLDL (test code = 27 mg/dL 5-60 7990147561) Lab Interpretation (test Abnormal code = 52346-6) [facility] use with Heparin Drip[facility]2020-09-28 09:57:00 Test Item Value Reference Range Interpretation Comments APTT Patient (test code See_Comment H [Au tomated message] = 3173-2) The system [employer] generated this result transmitted ref erence range: 26 - 36 Seconds. The reference range was not used to int erpret this result as normal/abnormal . Lab Interpretation (test Abnormal code = 33541-6) [facility]2020-09-28 06:35:00 Test Item Value Reference Range Interpretation Comments POCT GLU (test code = 5984146621) 271 mg/dL 70-110 H Lab Interpretation (test code = Abnormal 79968-8) [facility]rop[facility] [id number] 05:06:00 Test Item Value Reference Range Interpretation Comments TROPONIN I (test 0.189 ng/mL See_Comment H [Automated code = 6280084651) message] The system which generated this result transmitted reference range : <=0.034. The reference range was not used to interpret this result as normal/abnormal . KARSON (test code = Equal or Less than KARSON) 0.034 ng/ml---Normal ?Note: Cardiac troponin begins to rise 3-4 hours after the onset of ischemia. Repeat in 4-6 hours if the sample was drawn within 3-4 hours of the onset of the symptom and found normal. Between 0.035 and 0.120 ng/mL--- Borderline. Questionable myocardial injury or necrosis ? ?Note: Serial measurement may be necessary to confirm or exclude the diagnosis of myocardial injury or necrosis; Clinical correlation (symptoms, EKGs, imaging studies, and others) required; Repeat in 4-6 hours if clinically indicated. ? Equal or Higher than 0.121 ng/mL---Abnormal. Myocardial Injury or Necrosis Likely ? Biotin has been reported to cause a negative bias, interpret results relative to patient's use of biotin. ? Lab Interpretation Abnormal (test code = 70300-6) [facility] use with Heparin Drip[facility]2020-09-28 03:55:00 Test Item Value Reference Range Interpretation Comments APTT Patient (test code See_Comment H [Au tomated message] = 3173-2) The system [employer] generated this result transmitted ref erence range: 26 - 36 Seconds. The reference range was not used to int erpret this result as normal/abnormal . Lab Interpretation (test Abnormal code = 54694-2) [facility] PULMON[facility] [id number] 21:42:18HISTORY: Positive d-dimer, rule out P.E. TECHNIQUE: Contrast-enhanced 64-mutidetector CT [facility] wascompleted with intravenous injection of ?non ionic contrast medium.Subsequently numerous sagittal, coronal and MIP reformations weregenerated. FINDINGS: Included portions of the thyroid gland are unremarkable. Tracheaand central bronchial airways appear normal. Some of the peripheralbronchialairways in the lower lungs showed wall thickening. Congestion isseen in both lower lungs. Groundglass haziness noted predominantly in theright lung with bilateral pleural effusion, slightly larger on the rightside.Cardiomegaly noted with triple-vessel coronary atherosclerosis.Calcification is seen also in some of the medium-sized arteries in theabdomen.No acute pulmonary thromboembolism. No aortic aneurysm or aorticdissection. Scattered subcentimeter lymph nodes are seen near the tracheaand in the naomi. Next No aggressive bone lesions or any compression deformity detected in thethoracic vertebral bodies. CONCLUSIONS:1. No acute pulmonary thromboembolism.2. Mild cardiomegaly, triple-vessel coronary atherosclerosis, mildpulmonary edema, bilateral pleural effusion, slightly more on the rightside.3. Bronchial wall thickening and some groundglass haziness changes in theright lung base concerning for possible reactive airway diseaseprocess/nonspecific viral infection. Please correlate.4. Calcifications in coronary arteries and some of the arteries in theabdomen raise concern for possibility of chronic history of poorlycontrolled diabetes. Please correlate. [facility], Radiant Results Inft User - 09/27/2020 3:43 PM CSTHISTORY: Positive d- dimer, rule out P.E.TECHNIQUE: Contrast-enhanced 64-mutidetector CTscan of the chest wascompleted with intravenous injection of non ionic contrast medium.Subsequently numerous sagittal, coronal and MIP reformations weregenerated.FINDINGS: Included portions of the thyroid gland are unremarkable. Tracheaand central bronchial airways appear normal. Some of the peripheral bronchial airways in the lower lungs showed wall thickening. Congestion isseen in both lower lungs. Groundglass haziness noted predominantly in theright lung with bilateral pleural effusion, slightly larger on the rightside.Cardiomegaly noted with triple-vessel coronary atherosclerosis.Calcification is seen also in some of the medium-sized arteries in theabdomen.No acute pulmonary thromboembolism. Noaortic aneurysm or aorticdissection. Scattered subcentimeter lymph nodes are seen near the tracheaand in the naomi. NextNo aggressive bone lesions or any compression deformity detected in thethoracic vertebral bodies.CONCLUSIONS:1. No acute pulmonary thromboembolism.2. Mild cardiomegaly, triple-vessel coronary atherosclerosis, mildpulmonary edema, bilateral pleural effusion, slightly more on the rightside.3. Bronchial wall thickening and some groundglass haziness changes in theright lung base concerning for possible reactive airway diseaseprocess/nonspecific viral infection. Please correlate.4. Calcifications in coronary arteries and some of the arteries in theabdomen raise concern for possibility of chronic history of poorlycontrolled diabetes. Please correlate.[facility] CampusLACTATE [id number] 21:42:00 Test Item Value Reference Range Interpretation Comments LDH (test code = 7101715556) 678 U/L 300-600 H Lab Interpretation (test code = Abnormal 30004-3) [facility]COVID[facility] (ID NOW RAPID TESTING)2020-09-27 19:56:00 Test Item Value Reference Range Interpretation Comments SARS-CoV-2 Rapid ID NOW Not Detected Not Detected (test code = 10703-7) KARSON (test code = KARSON) ID NOW COVID-19 Assay is an isothermal nucleic acid amplification test intended for the qualitative detection of nucleic acid from SARS-CoV-2 viral RNA in nasopharyngeal (SAFETY PHYSICIAN) specimens. It is used under Emergency Use Authorization (EUA) by FDA. The limit of detection (LOD) of the assay is 125 Genome Equivalents/mL. A positive result is indicative of the presence of SARS-CoV-2 RNA. ?Clinical correlation with patient history and other diagnostic information is necessary to determine patient infection status. A negative (Not Detected) result does not preclude SARS-CoV-2 infection. In patients with clinical symptoms and other tests that are consistent with SARS-CoV-2 infection, negative results should be treated as presumptive negative and a new specimen should be tested with alternative PCR molecular test. Invalid: Please collect a new specimen for repeat patient testing if clinically indicated. Lab Interpretation Normal (test code = 47803-7) [facility]2020-11-12 19:50:00 Test Item Value Reference Range Interpretation Comments APTT Patient (test See_Comment [Automat ed code = 3173-2) message] The system which generated this result transmitted reference range : 23 - 38 Seconds . The reference range was not used to interpr et this result as normal/abnormal . KARSON (test code = KARSON) The [facility] patient population mean normal value for aPTT is 30 seconds. Lab Interpretation Normal (test code = 27749-4) [facility] CampusProthrombin Time (PT) / [id number] 19:50:00 Test Item Value Reference Range Interpretation Comments PROTIME PATIENT (test See_Comment [Auto mated message] code = 5964-2) The system wh ich generated this result transmitted ref erence range: 12.0 - 1 4.7 Seconds. The re ference range was not u sed to interpret this result as normal/abnor mal. INR (test code = 6301-6) Nor mal INR <1.1; Warfarin Therap eutic range 2.0 to 3. 0 or 2.5 to 3.5, dep ending upon the indica tions. Lab Interpretation (test Normal code = 55967-8) [facility] CampusTroponin [id number] 19:48:00 Test Item Value Reference Range Interpretation Comments TROPONIN I (test 0.207 ng/mL See_Comment H [Automated code = 9700813781) message] The system which generated this result transmitted reference range : <=0.034. The reference range was not used to interpret this result as normal/abnormal . KARSON (test code = Equal or Less than KARSON) 0.034 ng/ml---Normal ?Note: Cardiac troponin begins to rise 3-4 hours after the onset of ischemia. Repeat in 4-6 hours if the sample was drawn within 3-4 hours of the onset of the symptom and found normal. Between 0.035 and 0.120 ng/mL--- Borderline. Questionable myocardial injury or necrosis ? ?Note: Serial measurement may be necessary to confirm or exclude the diagnosis of myocardial injury or necrosis; Clinical correlation (symptoms, EKGs, imaging studies, and others) required; Repeat in 4-6 hours if clinically indicated. ? Equal or Higher than 0.121 ng/mL---Abnormal. Myocardial Injury or Necrosis Likely ? Biotin has been reported to cause a negative bias, interpret results relative to patient's use of biotin. ? Lab Interpretation Abnormal (test code = 34059-5) [facility] CampusN-TERMINAL [id number] 19:46:00 Test Item Value Reference Range Interpretation Comments NT-proBNP (test code 1370 pg/mL See_Comment H [Autom ated = 6593410007) message] The system which generated this result transmitted reference range : <=125. The reference range was not used to interpret this result as normal/abnormal . KARSON (test code = KARSON) Biotin has been reported to cause a negative bias, interpret results relative to patient's use of biotin. Lab Interpretation Abnormal (test code = 44593-8) [facility] CampusD-[id number] 19:37:00 Test Item Value Reference Interpretation Comments Range D-DIMER (test code = See_Comment H [Autom ated 6956140513) message] The system which generated this result transmitted reference range : <0.41 ?g/mL (FEU). The reference range was not used to interpret this result as normal/abnormal . KARSON (test code = This test may be KARSON) used in conjunction with a clinical pretest probability (PTP) assessment model to exclude venous thromboembolism (VTE) in patients suspected of deep venous thrombosis (DVT) and pulmonary embolism (PE) A D-Dimer value less than 0.50 ?g/ml (FEU) has a negative predicative value of 96 to 100% (95% CI)and 97 to 100% (95% CI) as an aid in the diagnosis of deep vein thrombosis (DVT) and pulmonary embolism when there is low or moderate pretest probability of PE or DVT. D-Dimer values are expressed in initial fibrinogen equivalent units (FEU)" The assay results should be used with other information, including the clinical context, in forming a diagnosis. Lab Interpretation Abnormal (test code = 41472-3) [facility] Metabolic Panel (NA, K, CL, CO2, GLUCOSE, BUN, CREATININE, CA)2020-09-27 19:36:00 Test Item Value Reference Range Interpretation Comments NA (test code = 134 mmol/L 135-145 L 9353461920) K (test code = 4.9 mmol/L 3.5-5 4874095941) CL (test code = 99 mmol/L 98-108 4392128387) CO2 TOTAL (test code = 30 mmol/L 23-31 5843988479) AGAP (test code = 2-16 9778475218) BUN (test code = 22 mg/dL 7-23 8021240771) GLUCOSE (test code = 216 mg/dL 70-110 H 0481676270) CREATININE (test code = 0.78 mg/dL 0.6-1.25 2196666412) CALCIUM (test code = 9.3 mg/dL 8.6-10.6 1377303527) eGFR Calculation mL/min/1.73m2 (Non-) (test code = 3737425668) eGFR Calculation mL/min/1.73m2 () (test code = 4227601322) KARSON (test code = KARSON) Association of Glomerular Filtration Rate (GFR) and Staging of Kidney Disease* + --+ --+ ------+| GFR (mL/min/1.73 m2) ?| With Kidney Damage ?| ?Without Kidney Damage+ --------+ --------+ +| ?>90 ?| ?Stage one ?| ? Normal ?+ ---+ ---+ -------+| ?60-89 ?| ?Stage two ?| ? Decreased GFR ? + --+ --+ ------+| ?30-59 ?| ?Stage three ?| ? Stage three ? + --+ --+ ------+| ?15-29 ?| ?Stage four ? | ? Stage four ?+ ---+ ---+ -------+| ?<15 (or dialysis) ? ?| ?Stage five ? | ? Stage five ?+ ---+ ---+ -------+ *Each stage assumes the associated GFR level has been in effect for at least three months. ?Stages 1 to 5, with or without kidney disease, indicate chronic kidney disease. Notes: Determination of stages one and two (with eGFR >59mL/min/1.73 m2) requires estimation of kidney damage for at least three months as defined by structural or functional abnormalities of the kidney, manifested by either:Pathological abnormalities or Markers of kidney damage (including abnormalities in the composition of the blood or urine or abnormalities in imaging tests). Lab Interpretation Abnormal (test code = 16853-4) [facility] Campus[facility] (ALB, T.PRO, BILI T, BU/BC, ALT, AST, ALK PHOS)2020-09-27 19:36:00 Test Item Value Reference Range Interpretation Comments TOTAL BILI (test code = 7246503398) 1.4 mg/dL 0.1-1.1 H BILI UNCON (test code = 0571660484) 0.8 mg/dL 0.1-1.1 BILI CONJ (test code = 3726105877) 0.0 mg/dL 0-0.3 T PROTEIN (test code = 8144878482) 7.2 g/dL 6.3-8.2 ALBUMIN (test code = 4739571703) 4.2 g/dL 3.5-5 ALK PHOS (test code = 4734235336) 53 U/L 34-122 ALTv (test code = 1742-6) 106 U/L 5-50 H AST(SGOT) (test code = 4663742299) 61 U/L 13-40 H Lab Interpretation (test code = Abnormal 82036-9) [facility] CampusLipase [id number] 19:35:00 Test Item Value Reference Range Interpretation Comments LIPASE (test code = 1701922359) 41 U/L 0-220 Lab Interpretation (test code = Normal 75923-4) [facility] with [id number] 19:19:00 Test Item Value Reference Range Interpretation Comments WBC (test code = See_Comment [Automated message] 6690-2) The system [employer] generated this result transmitted ref erence range: 4.20 - 1 0.70 10*3/?L. The re ference range was not u sed to interpret this result as normal/abnor mal. RBC (test code = See_Comment [Automated message] 789-8) The system [employer] generated this result transmitted ref erence range: 4.26 - 5 .52 10*6/?L. The re ference range was not u sed to interpret this result as normal/abnor mal. HGB (test code = 14.7 g/dL 12.2-16.4 718-7) HCT (test code = 43.7 % 38.4-49.3 4544-3) MCV (test code = 91.0 fL 81.7-95.6 787-2) MCH (test code = 30.6 pg 26.1-32.7 785-6) MCHC (test code = 33.6 g/dL 31.2-35 786-4) RDW-SD (test code 44.4 fL 38.5-51.6 = 71988-9) RDW-CV (test code 13.2 % 12.1-15.4 = 788-0) PLT (test code = See_Comment [Automated message] 777-3) The system [employer] generated this result transmitted ref erence range: 150 - 32 8 10*3/?L. The re ference range was not u sed to interpret this result as normal/abnor mal. MPV (test code = 11.4 fL 9.8-13 26122-9) NRBC/100 WBC (test See_Comment [Automat ed message] code = 4759798676) The syste [employer] which generated this result transmitted ref erence range: 0.0 - 10 .0 /100 WBCs. The refer ence range was not u sed to interpret this result as normal/abnor mal. NRBC x10^3 (test <0.01 See_Comment [Automated message] code = 4575978817) The syste m which generated this result transmitted ref erence range: 10*3/?L. The reference range was not used to interpr et this result as normal/abnormal . GRAN MAT (NEUT) % 60.5 % (test code = 770-8) IMM GRAN % (test 0.60 % code = 6589121193) LYMPH % (test code 27.0 % = 736-9) MONO % (test code 8.4 % = 5905-5) EOS % (test code = 2.9 % 713-8) BASO % (test code 0.6 % = 706-2) GRAN MAT 4.80 10*3/uL 1.99-6.95 x10^3(ANC) (test code = 3460490618) IMM GRAN x10^3 0.05 10*3/uL 0-0.06 (test code = 9272791337) LYMPH x10^3 (test 2.14 10*3/uL 1.09-3.23 code = 731-0) MONO x10^3 (test 0.67 10*3/uL 0.36-1.02 code = 742-7) EOS x10^3 (test 0.23 10*3/uL 0.06-0.53 code = 711-2) BASO x10^3 (test 0.05 10*3/uL 0.01-0.09 code = 704-7) [facility] CampusChes 1 [id number] 19:01:56CHEST PORTABLE ONE VIEW HISTORY:CP, SOB TECHNIQUE: Frontal, portable projection of the chest is obtained. FINDINGS: Slight prominence of the vascular lung markings is noted. Heart size isborderline enlarged. No pleural effusion or pneumothorax is seen. CONCLUSIONS:1. Mild pulmonary edema and borderline cardiomegalyUtmb, Radiant Results Inft User - 09/27/2020 1:03 PM CSTCHEST PORTABLE ONE VIEWHISTORY:CP, SOBTECHNIQUE: Frontal, portable projection of the chest is obtained.FINDINGS:Slight prominence ofthe vascular lung markings is noted. Heart size isborderline enlarged. No pleural effusion or pneumothorax is seen.CONCLUSIONS:1. Mild pulmonary edema and borderline cardiomegalyUnHouston Methodist Hospital
[2022-12-19 14:23] LABS: SARS-COV-2 RT PCR NEGATIVE (NEGATIVE)
--- NOTE | 2022-12-19 15:08 | ER ---
Nurse's Notes [facility] Name: Artem Pena Age: 62 yrs Sex: Male : 1960 Arrival Date: 12/19/2022 Time: 13:20 Bed IW1 Private MD: Diagnosis: Acute upper respiratory infection, unspecified Presentation: 12/19 13:28 Chief complaint: Patient states: sore throat for a couple of days, left ear hurts today ko1 and has developed sinus drainage. Coronavirus screen: At this time, the client does not indicate any symptoms associated with coronavirus-19. Ebola Screen: No symptoms or risks identified at this time. Initial Sepsis Screen: Does the patient meet any 2 criteria? No. Patient's initial sepsis screen is negative. Does the patient have a suspected source of infection? No. Patient's initial sepsis screen is negative. Risk Assessment: Do you want to hurt yourself or someone else? Patient reports no desire to harm self or others. Onset of symptoms was December 19, 2022. 13:28 Method Of Arrival: Ambulatory ko1 13:28 Acuity: TANGELA 4 ko1 Triage Assessment: 13:31 General: Appears in no apparent distress. comfortable, Behavior is calm, cooperative, ko1 appropriate for age. Pain: Denies pain. EENT: Throat is reddened Reports nasal congestion. Historical: - Allergies: 13:31 Latex, Natural Rubber; ko1 13:31 Lisinopril; ko1 13:31 metformin; ko1 - Home Meds: 13:31 Amiodarone Oral [Active]; Furosemide Oral [Active]; Jardiance Oral [Active]; ko1 - PMHx: 13:31 Congestive heart failure; Diabetes - IDDM; Hypertension; ko1 - PSHx: 13:31 Coronary artery bypass graft; ko1 - Immunization history:: Adult Immunizations unknown. - Social history:: Smoking status: Patient denies any tobacco usage or history of. Screenin:59 [facility] ED Fall Risk Assessment (Adult) History of falling in the last 3 months, ko1 including since admission No falls in past 3 months (0 pts) Confusion or Disorientation No (0 pts) Intoxicated or Sedated No (0 pts) Impaired Gait No (0 pts) Mobility Assist Device Used No (0 pt) Altered Elimination No (0 pt) Score/Fall Risk Level 0 - 2 = Low Risk Oriented to surroundings, Maintained a safe environment, Educated pt \T\ family on fall prevention, incl call for assistance when getting out of bed, Assessed \T\ reinforced patient's understanding of fall precautions, Provided non-skid footwear, Hourly rounding (assess needs \T\ fall precautionary measures) done, Used ambulatory aids as needed (educated on \T\ assisted with), Used gait belt as appropriate. Abuse screen: Denies threats or abuse. Denies injuries from another. Nutritional screening: No deficits noted. Tuberculosis screening: No symptoms or risk factors identified. Assessment: 14:59 General: Appears in no apparent distress. comfortable, Behavior is calm, cooperative, ko1 appropriate for age. Pain: Denies pain. Neuro: No deficits noted. Cardiovascular: No deficits noted. Respiratory: Airway is patent Respiratory effort is even, unlabored, Breath sounds are clear bilaterally. GI: No deficits noted. : No deficits noted. EENT: No deficits noted. Derm: No deficits noted. Musculoskeletal: No deficits noted. Vital Signs: 13:28 BP 115 / 76; Pulse 78; Resp 18; Temp 97.7; Pulse Ox 100% ; Pain 0/10; ko1 ED Course: 13:20 Patient arrived in ED. as 13:28 Bev Gross FNP-C is [facility]. kb 13:28 Bijan Garcia MD is Attending Physician. kb 13:31 Triage completed. ko1 13:31 Arm band placed on left wrist. Patient placed in waiting room, Patient notified of wait ko1 time. 13:38 Strep Sent. ko1 13:38 COVID-19/FLU A+B/RSV Sent. ko1 14:59 Patient has correct armband on for positive identification. ko1 14:59 No provider procedures requiring assistance completed. Patient did not have IV access ko1 during this emergency room visit. Administered Medications: 15:15 Drug: Decadron (dexamethasone) 10 mg Route: IM; Site: right deltoid; ko1 Medication: 14:59 VIS not applicable for this client. ko1 Outcome: 15:08 Discharge ordered by . kb 15:08 Discharged to home ambulatory. ko1 15:08 Condition: stable 15:08 Discharge instructions given to patient, Instructed on discharge instructions, follow up and referral plans. medication usage, Demonstrated understanding of instructions, follow-up care, medications, Prescriptions given X 1. 15:15 Patient left the ED. ko1 Signatures: Bev Gross, SEJALC TAMARA-Marisol Steele Kathy, RN RN ko1
--- NOTE | 2022-12-19 15:09 | EDPHYS ---
Physician Documentation [facility] Name: Artem Pena Age: 62 yrs Sex: Male : 1960 Arrival Date: 12/19/2022 Time: 13:20 Bed IW1 Private MD: ED Physician Bijan Garcia HPI: 12/19 14:05 This 62 yrs old Male presents to ER via Ambulatory with complaints of Sore Throat, kb Drainage. 14:05 The patient presents with sore throat. The patient describes throat pain as constant. kb Onset: The symptoms/episode began/occurred 2 day(s) ago. Severity of symptoms: At their worst the symptoms were mild, moderate, in the emergency department the symptoms are unchanged. Modifying factors: The symptoms are alleviated by nothing, the symptoms are aggravated by swallowing, Patient's oral intake status: good. Associated signs and symptoms: Pertinent positives: earache, rhinorrhea, Sore throat. The patient has not experienced similar symptoms in the past. The patient has not recently seen a physician. Pt reports sore throat, congestion and left ear pain that started 2 days ago. Reports he was recently around his 4 year old nephew that had "the crud.". Historical: - Allergies: 13:31 Latex, Natural Rubber; ko1 13:31 Lisinopril; ko1 13:31 metformin; ko1 - Home Meds: 13:31 Amiodarone Oral [Active]; Furosemide Oral [Active]; Jardiance Oral [Active]; ko1 - PMHx: 13:31 Congestive heart failure; Diabetes - IDDM; Hypertension; ko1 - PSHx: 13:31 Coronary artery bypass graft; ko1 - Immunization history:: Adult Immunizations unknown. - Social history:: Smoking status: Patient denies any tobacco usage or history of. ROS: 14:13 Constitutional: Negative for fever, chills, and weight loss. kb 14:13 ENT: Positive for ear pain, sinus congestion, sore throat. 14:13 Respiratory: Positive for cough. 14:13 All other systems are negative. Exam: 14:13 Constitutional: This is a well developed, well nourished patient who is awake, alert, kb and in no acute distress. Head/Face: Normocephalic, atraumatic. ENT: Moist Mucous membranes Cardiovascular: Regular rate and rhythm with a normal S1 and S2. No gallops, murmurs, or rubs. No pulse deficits. Respiratory: Respirations even and unlabored. No increased work of breathing. Talking in full sentences Abdomen/GI: Soft, non-tender. No distention Skin: Warm, dry with normal turgor. Normal color. MS/ Extremity: Pulses equal, no cyanosis. Neurovascular intact. Full, normal range of motion. Neuro: Awake and alert, GCS 15, oriented to person, place, time, and situation. Moves all extremities. Normal gait. Psych: Awake, alert, with orientation to person, place and time. Behavior, mood, and affect are within normal limits. Vital Signs: 13:28 BP 115 / 76; Pulse 78; Resp 18; Temp 97.7; Pulse Ox 100% ; Pain 0/10; ko1 MDM: 13:28 Patient medically screened. 14:13 Differential diagnosis: upper respiratory infection, viral syndrome Strep, flu, COVID, kb RSV. Data reviewed: vital signs, nurses notes. 14:55 I considered the following discharge prescriptions or medication management in the emergency department Antibiotics: At this time antibiotics are not recommended. Counseling: I had a detailed discussion with the patient and/or guardian regarding: the historical points, exam findings, and any diagnostic results supporting the discharge/admit diagnosis, lab results, the need for outpatient follow up, a family practitioner, to return to the emergency department if symptoms worsen or persist or if there are any questions or concerns that arise at home. 12/19 13:34 Order name: Strep; Complete Time: 13:56 12/19 13:34 Order name: COVID-19/FLU A+B/RSV; Complete Time: 14:55 12/19 13:57 Order name: Throat Culture EDMS Administered Medications: 15:15 Drug: Decadron (dexamethasone) 10 mg Route: IM; Site: right deltoid; ko1 Disposition: 12/20 07:16 Co-signature as Attending Physician, Bijan Garcia MD I reviewed the patient's care rn provided by the Advanced Practice Provider and agree with the diagnosis and treatment plan. Disposition Summary: 12/19/22 15:08 Discharge Ordered Location: Home Condition: Stable Diagnosis - Acute upper respiratory infection, unspecified Followup: - With: Emergency Department - When: As needed - Reason: Worsening of condition Followup: kb - With: Private Physician - When: 2 - 3 days - Reason: Recheck today's complaints, Continuance of care, Re-evaluation by your physician Discharge Instructions: - Discharge Summary Sheet kb - Upper Respiratory Infection, Adult, [id number] kb - Viral Respiratory Infection, [id number] kb Forms: - Medication Reconciliation Form kb - Thank You Letter kb - Antibiotic Education kb - Prescription Opioid Use kb Signatures: Dispatcher [employer] EDBev Beatty, SAHRA MCDONALD-Bijan Hollis MD MD rn Mayuri Roldan RN RN ko1
[2022-12-19] MEDS ORDERED: dexAMETHasone 10 MG/ML VIAL ONE (15:15)
[2022-12-19 15:23] VITALS: BP 115/76; TEMP 97.7; O2SAT 100
== END 2022-12-19 15:15 | disposition home or self-care (01) ==
LOC: ER 13:16
DX: J06.9 Acute upper respiratory infection, unspecified (principal); Z20.822 Contact with and (suspected) exposure to COVID-19; I10 Essential (primary) hypertension; I50.9 Heart failure, unspecified; E11.9 Type 2 diabetes mellitus without complications; Z88.8 Allergy status to other drugs, medicaments and biological substances; Z91.040 Latex allergy status; Z91.048 Other nonmedicinal substance allergy status
CPT/HCPCS: 87070; 87081; 0241U; 96372; 99283; J1100

== ENCOUNTER 2023-05-11 10:00 | Emergency (ER) | payer OTHER ==
--- OUTSIDE RECORDS SUMMARY | 2023-05-11 10:28 | XMS REPORT | Continuity of Care Document ---
:1960 Author Organization [facility] t Address [address] [facility] [address] [place] [address] Care Team Providers Name Role Phone Kj Lopez MD Primary Care Physician KJ LOPEZ Attending Clinician Unavailable MOI ESTRADA Attending Clinician Unavailable MOI ESTRADA Attending Clinician Unavailable MK PORTER Attending Clinician Unavailable KJ LOPEZ Attending Clinician Unavailable Dia Attending Clinician Unavailable Paulette Harris MA Attending Clinician Unavailable AIMEE MCGOWAN Attending Clinician Unavailable Danial KNAPP, Fany Attending Clinician Unavailable Doctor Unassigned, [place] Attending Clinician Unavailable JUAREZ GAO Attending Clinician Unavailable RAEANN BRAND Attending Clinician Unavailable Juarez Gao MD Attending Clinician [phone] Huy Judge DO Attending Clinician Draw, [facility] Attending Clinician Unavailable Blaise Rebollar Attending Clinician BLAISE CROUCH Attending Clinician Unavailable Angelo KNAPP, Cristina Sheridan Attending Clinician Petrona Padilla Attending Clinician Maya Jessica RN Attending Clinician Jeramy WIND TECHNICIAN, Elisabet Rinaldi Attending Clinician Oleksandr Santiago MD Attending Clinician [phone] Dia Admitting Clinician Unavailable AIMEE MCGOWAN Admitting Clinician Unavailable Vishal ASENCIO, Moi Admitting Clinician Oleksandr Santiago MD Admitting Clinician [phone] Payers Payer Name Policy Type Policy Number Effective Date Expiration Date S megan [employer] [place] [id number] 2021 2024 [facility] 00:00:00 00:00:00 OTHER CI [id number] [facility] [id number] [facility] FROM [facility] Problems Condition Condition Condition Status Onset [...] 5 MONTH 5 MONTH Diagnosis [facility]22[facility]07-18 [facility] FOLLOW UP 12-27 16:05:00 l Active 00:00: Max 12/27/2021 00 [facility] I25.10 I25.10 Diagnosis Active 2020-112021-12-04 M erasmo ECHO ECHO 0-26 08:34:00 l COMPLETE COMPLETE 00:00: Riaz sullivan Active 00 09/10/2021 [facility] 3 MONTHS 3 MONTHS Diagnosis Active 2020-112021-12-27 [facility] FOLLOW FOLLOW 0-14 10:07:00 l UP/ECHO UP/ECHO 00:00: Max Active 00 08/29/2021 [facility] P22.0 - P22.0 - Diagnosis Active 2021-07-23 [facility] RESPIRATOR RESPIRATOR 9 14:01:00 l Y DISTRESS Y DISTRESS 00:01: He rmann SYNDROME SYNDROME 00 Active 07/23/2021 OPID [facility] SOB SOB Diagnosis Active 2021 Mem oria Active 07-16 15:20:00 l 07/16/2021 00:00: Riaz sullivan 00 [facility] N/A N/A Diagnosis Active 2021-07-28 Mem oria Active 07-16 12:53:00 l 07/16/2021 00:00: Riaz sullivan 00 [facility] Aspartate Aspartate Problem Active Hilario jada aminotrans Aminotrans 06-23 Fa eliz ferase ferase 00:00: Practic serum Serum 00 e level Level raised Raised I25.10 - I25.10 - Diagnosis Active 2021-06-26 [facility] ATHSCL ATHSCL 06-19 13:26:00 l HEART HEART 00:01: Max DISEASE OF DISEASE OF 00 [place] Active 06/19/2021 OPID [facility] I25.10 I25.10 Diagnosis Active 2021-06-21 Me moria Active 06-19 09:32:00 l 06/19/2021 00:00: Riaz sullivan 00 [facility] Foot Foot Problem Active [place] callus Callus [...] Hypertensi Problem Active V illage ve ve 8 Family disorder Disorder 00:00: Practi c 00 [...] Health disease disease 00:00: involving involving 00 council council heart heart without without angina angina pectoris pectoris Obstructiv Obstructiv Disease Active U T e sleep e sleep 06-05 Health apnea apnea 00:00: 00 Essential Essential Disease Active [place] hypertensi hypertensi 06-05 He alth on on 00:00: 00 R07.9,I25. R07.9,I25 Diagnosis Active 2021-06-05 Memoria 10,I25.10, .10,I25.10 05-29 10:50:00 l I50.22 ,I50.22 00:00: [place] Active 00 05/29/2021 [place] 6WK FOLLOW 6WK Diagnosis Active 2021-08-29 Memoria UP FOLLOW UP 05-23 14:00:00 l Active 00:00: Max 05/23/2021 00 [facility] NSTEMI NSTEMI Disease Active [place] (non-ST (non-ST [...] I25.10 05-08 08:25:00 l I48.91 I48.91 00:00: Max Active 00 05/08/2021 [facility] I25.10,I50 I25.10,I5 Diagnosis Active 2021-04-18 Memoria .22,I48.91 0.22,I48.9 04-02 07:40:00 l 1 Active 00:00: [place] 04/02/2021 00 [place] 2 MO F/U 2 MO F/U Diagnosis Active 2021-05-23 Memoria Active 03-22 10:08:00 l 03/22/2021 00:00: Riaz sullivan [address] FRANCISCO J PT/ NEW Diagnosis Active 2021-03-22 [place] BECKER PT/ 03-04 10:48:00 l VANDERGRIF ROSITA 00:00: Riaz sullivan FT/CHF/UNS VANDERGRIF 00 PE FT/CHF/UNS PE Active 03/04/2021 [facility] Morbid Morbid Disease Active 2019-11 [place] obesity [...] 2019-11 U nivers 1-12 ity of 00:00: [place] [id number] [facility] Congestive Problem Resolve 2021-12-29 Memoria heart Congestive d 23:48:14 l failure heart Max (disorder) failure (disorder) Resolved Problem 12/29/2021 [facility], Cammy Alcantar [facility], [facility] [place] Atheroscle Atheroscl Problem Active 2021-12-29 Memoria rosis of erosis of 23:48:14 l coronary coronary Riaz n artery artery (disorder) (disorder) Active Problem 12/29/2021 [facility], Cammy Alcantar [facility] Diabetes Diabetes Problem Active 2021-12-29 Memoria mellitus mellitus 23:48:14 l (disorder) (disorder) He rmann Active Problem 12/29/2021 [facility], NATALIYA Drake,M NATALIYA [facility], [facility] Neuropathy Neuropath Problem Active 2021-12-29 Memoria (disorder) y 23:48:14 l (disorder) Riaz n Active Problem 12/29/2021 [facility], NATALIYA Drake,M NATALIYA [facility], [facility] ATHSCL ATHSCL Diagnosis Active 2021-07-28 Il moria HEART HEART 12:53:00 l DISEASE OF DISEASE OF He rmada [place] CORONARY CORONARY Active [facility] Z95.1 - Z95.1 - Diagnosis Active 2021-12-23 Memoria PRESENCE PRESENCE 13:15:00 l OF OF [place] AORTOCORON AORTOCORON NAVNEET BYPA NAVNEET BYPA Active NATALIYA Drake,M Radha NATALIYA [facility] Allergies, Adverse Reactions, Alerts Allergy Allergy Status [...] Univers ALLERGIE Class ity of [facility] Lisinopr Allergy Active Other Village il to Family substanc Practic e e Metformi Allergy Active Nausea, Villag e n to Vomiting Family substanc Practic e e Trulicit Allergy Active Nausea, Villag e y to Vomiting Family substanc Practic e e Social History Social Habit Start Date Stop Date Quantity Comments Source Exposure to Not sure [facility] SARS-CoV-2 (event) Alcohol intake 2021-08-08 2021-08-08 Ex-drinker [facility] 00:00:00 00:00:00 (finding) Social History 2021-05-23 2021-05-23 [facility] kong 15:18:29 15:18:29 Tobacco use and 2021-05-23 2021-05-23 Smokeless tobacco [place] [facility] exposure 00:00:00 00:00:00 non-user Sex Assigned At [birth year] [facility] y of 00:00:00 00:00:00 [facility] Smoking Status Start Date Stop Date Source Never Smoker [place] Family P aureliano Tobacco smoking consumption unknown [facility] Medications Ordered Filled Start Stop Current Ordering Indication Dosage Frequency Signature Comments Components Source Medication Medication Date Date Medication? Clinician (SIG) Name Name 24 HR Yes 100 mg = 1 Memori a Metoprolol 2-11 tab, PO, l Tartrate 17:36: Daily, # Debra nn 100 MG 00 90 tab, 3 Extended Refill(s), Release Pharmacy: [facility], 193.04, cm, 08/29/21 17:30:00 CDT, Height, 157.727, kg, 08/29/21 17:30:00 CDT, Weight atorvastati Yes 20 mg = 1 M emoria n 20 MG 2-11 tab, PO, l Oral Tablet 17:36: Bedtime, # Max [Lipitor] 00 90 tab, 3 Refill(s), Pharmacy: [facility], 193.04, cm, 08/29/21 17:30:00 CDT, Height, 157.727, kg, 08/29/21 17:30:00 CDT, Weight losartan 25 Yes 25 mg = 1 M emoria mg oral 2-11 tab, PO, l tablet 17:34: Daily, # Max 00 90 tab, 3 Refill(s), Pharmacy: [facility], 193.04, cm, 08/29/21 17:30:00 CDT, Height, 157.727, kg, 08/29/21 17:30:00 CDT, Weight AMIODarone Yes 200 mg = 1 M emoria 200 mg oral 2-11 tab, PO, l tablet 17:30: Daily, # Max 00 90 tab, 3 Refill(s), Pharmacy: [facility], 193.04, cm, 08/29/21 17:30:00 CDT, Height, 157.727, kg, 08/29/21 17:30:00 CDT, Weight apixaban 5 0 Yes 5 mg = 1 Mem oria MG Oral 2-11 tab, PO, l Tablet 17:30: Q12H, # [place] [Eliquis] 00 180 tab, 3 Refill(s), Pharmacy: [facility], 193.04, cm, 08/29/21 17:30:00 CDT, Height, 157.727, kg, 08/29/21 17:30:00 CDT, Weight Furosemide Yes 40 mg = 1 Me moria 40 MG Oral 2-11 tab, PO, l Tablet 17:30: BID [place] 00 Diuretic, # 180 tab, 3 Refill(s), Pharmacy: [facility], 193.04, cm, 08/29/21 17:30:00 CDT, Height, 157.727, kg, 08/29/21 17:30:00 CDT, Weight apixaban 5 No 5 mg, PO, Me moria MG Oral 2-11 Q12H, tab, l Tablet 16:37: 0 Max [Eliquis] 00 Refill(s), For Atrial Fibrilatio n 3 ML Yes 2 unit, 0 Memoria Insulin, 2-11 Refill(s) l Aspart, 16:36: Max Human 100 00 UNT/ML Pen Injector [NovoLog] 3 ML 0 Yes 40 unit, Memoria Insulin 2-11 SUB-Q, [...] MCG tablet each day before breakfast. apixaban 2-0 Yes 5mg Q.5D Take 5 mg UT (Eliquis) 5 2-01 by mouth 2 He alth MG tablet 11:31: (two) 02 times a day. empaglifloz 2021-0 Yes 1{tbl} QD Take 1 UT in 2-01 tablet by Health (Jardiance) 11:31: mouth 1 25 MG 02 (one) time each day. levothyroxi 2021-0 Yes 50ug Take 50 UT ne 2-01 mcg by Health (Synthroid, 11:31: mouth 1 Levoxyl) 50 02 (one) time MCG tablet each day before breakfast. apixaban 2021-0 Yes 5mg Q.5D Take 5 mg UT (Eliquis) 5 2-01 by mouth 2 He alth MG tablet 11:31: (two) 02 times a day. empaglifloz 2021-0 Yes 1{tbl} QD Take 1 UT in 2-01 tablet by Health (Jardiance) 11:31: mouth 1 25 MG 02 (one) time each day. levothyroxi 2021-0 Yes 50ug Take 50 UT ne 2-01 mcg by Health (Synthroid, 11:31: mouth 1 Levoxyl) 50 02 (one) time MCG tablet each day before breakfast. losartan 25 2020-11 Yes 25 mg = 1 M emoria mg oral 0-14 tab, PO, l tablet 20:40: Daily, # Max 00 90 tab, 1 Refill(s), Pharmacy: [facility], 193.04, cm, 07/25/21 3:56:00 CDT, Height, 161.534, kg, 07/23/21 9:12:00 CDT, Weight Furosemide 2020-11 Yes 40 mg = 1 Me moria 40 MG Oral 0-14 tab, PO, l Tablet 20:38: BID Max 00 Diuretic, # 180 tab, 3 Refill(s), Pharmacy: [facility], 193.04, cm, 07/25/21 3:56:00 CDT, Height, 161.534, kg, 07/23/21 9:12:00 CDT, Weight AMIODarone 2020-11 Yes 400 mg = 2 M emoria 200 mg oral 0-14 tab, PO, l tablet 20:38: BID, # 360 Debra nn 00 tab, 3 Refill(s), Pharmacy: [facility], 193.04, cm, 07/25/21 3:56:00 CDT, Height, 161.534, kg, 07/23/21 9:12:00 CDT, Weight clopidogrel 2020-11 Yes 75 mg = 1 M emoria 75 mg oral 0-14 tab, PO, l tablet 20:37: Daily, # [place] 00 90 tab, 3 Refill(s), Pharmacy: [facility], 193.04, cm, 07/25/21 3:56:00 CDT, Height, 161.534, kg, 07/23/21 9:12:00 CDT, Weight levothyroxi Yes 50ug Take 50 UT ne 9-23 mcg by Health (Synthroid, 09:14: mouth 1 Levoxyl) 50 13 (one) time MCG tablet each day before breakfast. levothyroxi Yes 50ug Take 50 UT ne 9-23 mcg by Health (Synthroid, 09:14: mouth 1 Levoxyl) 50 13 (one) time MCG tablet each day before breakfast. No known No No known UT medications 9-23 medication He alth 09:14: s 13 levothyroxi Yes 50ug Take 50 UT ne 9-23 mcg by Health (Synthroid, 09:14: mouth 1 Levoxyl) 50 13 (one) time MCG tablet each day before breakfast. levothyroxi Yes 50ug Take 50 UT ne 9-23 mcg by Health (Synthroid, 09:14: mouth 1 Levoxyl) 50 13 (one) time MCG tablet each day before breakfast. No known No No known UT medications 9-23 medication He alth 09:14: s 13 levothyroxi Yes 50ug Take 50 UT ne 9-23 mcg by Health (Synthroid, 09:14: mouth 1 Levoxyl) 50 13 (one) time MCG tablet each day before breakfast. levothyroxi 2021-0 Yes 50ug Take 50 UT ne 9-23 mcg by Health (Synthroid, 09:14: mouth 1 Levoxyl) 50 13 (one) time MCG tablet each day before breakfast. apixaban 1-0 Yes 5mg Q.5D Take 5 mg UT (Eliquis) 5 08-08 by mouth 2 He alth MG tablet 09:10: (two) 00 times a day. empaglifloz 1-0 Yes 1{tbl} QD Take 1 UT in - tablet by [employer] (Jardiance) 09:10: mouth 1 25 MG 00 (one) time each day. apixaban 1-0 Yes 5mg Q.5D Take 5 mg UT (Eliquis) 5 08-08 by mouth 2 He alth MG tablet 09:10: (two) 00 times a day. empaglifloz 1-0 Yes 1{tbl} QD Take 1 UT in 08-08 tablet by [employer] (Jardiance) 09:10: mouth 1 25 MG 00 (one) time each day. apixaban 1-0 Yes 5mg Q.5D Take 5 mg UT (Eliquis) 5 08-08 by mouth 2 He alth MG tablet 09:10: (two) 00 times a day. empaglifloz 1-0 Yes 1{tbl} QD Take 1 UT in - tablet by [employer] (Jardiance) 09:10: mouth 1 25 MG 00 (one) time each day. apixaban 1-0 Yes 5mg Q.5D Take 5 mg UT (Eliquis) 5 08-08 by mouth 2 He alth MG tablet 09:10: (two) 00 times a day. empaglifloz 2021-0 Yes 1{tbl} QD Take 1 UT in 08-08 tablet by [employer] (Jardiance) 09:10: mouth 1 25 MG 00 (one) time each day. apixaban 2021-0 Yes 5mg Q.5D Take 5 mg UT (Eliquis) 5 08-08 by mouth 2 He alth MG tablet 09:10: (two) 00 times a day. empaglifloz 2021-0 Yes 1{tbl} QD Take 1 UT in -23 tablet by [employer] (Jardiance) 09:10: mouth 1 25 MG 00 [...] Take 1 UT in 08-08 tablet by [employer] ([employer]) 09:10: mouth 1 25 MG 00 (one) time each day. apixaban 1-0 Yes 5mg Q.5D Take 5 mg UT (Eliquis) 5 08-08 by mouth 2 He alth MG tablet 09:10: (two) 00 times a day. empaglifloz 2021-0 Yes 1{tbl} QD Take 1 UT in 08-08 tablet by [employer] (Jardiance) 09:10: mouth 1 25 MG 00 (one) time each day. apixaban 1-0 Yes 5mg Q.5D Take 5 mg UT (Eliquis) 5 08-08 by mouth 2 He alth MG tablet 09:10: (two) 00 times a day. apixaban 1-0 Yes 5mg Q.5D Take 5 mg UT (Eliquis) 5 08-08 by mouth 2 He alth MG tablet 09:10: (two) 00 times a day. empaglifloz 2021-0 Yes 1{tbl} QD Take 1 UT in 08-08 tablet by [employer] (Jardiance) 09:10: mouth 1 25 MG 00 (one) time each day. apixaban 1-0 Yes 5mg Q.5D Take 5 mg UT (Eliquis) 5 08-08 by mouth 2 He alth MG tablet 09:10: (two) 00 times a day. empaglifloz 2021-0 Yes 1{tbl} QD Take 1 UT in 08-08 tablet by [employer] (Jardiance) 09:10: mouth 1 25 MG 00 (one) time each day. apixaban 2021-0 Yes 5mg Q.5D Take 5 mg UT (Eliquis) 5 08-08 by mouth 2 He alth MG tablet 09:10: (two) 00 times a day. empaglifloz 2020-0 Yes 1{tbl} QD Take 1 UT in 08-08 tablet by [employer] (Jardiance) 09:10: mouth 1 25 MG 00 (one) time each day. apixaban 2020-0 Yes 5mg Q.5D Take 5 mg UT (Eliquis) 5 08-08 by mouth 2 He alth MG tablet 09:10: (two) 00 times a day. empaglifloz 2020-0 Yes 1{tbl} QD Take 1 UT in 08-08 tablet by Health (Jardiance) 09:10: mouth 1 25 MG 00 (one) time each day. apixaban 2020-0 Yes 5mg Q.5D Take 5 mg UT (Eliquis) 5 08-08 by mouth 2 He alth MG tablet 09:10: (two) 00 times a day. empaglifloz 2020-0 Yes 1{tbl} QD Take 1 UT in 08-08 tablet by Health ([employer]) 09:10: mouth 1 25 MG 00 (one) time each day. apixaban 2020-0 Yes 5mg Q.5D Take 5 mg UT (Eliquis) 5 08-08 by mouth 2 He alth MG tablet 09:10: (two) 00 times a day. Jardiance No Notes: Memori a 07-30 (Same as: l 14:00: Jardiance) Max 00 Lipitor No Notes: Memoria 07-30 (Same as: l 02:00: Lipitor) [place] 00 potassium No Notes: Memori a chloride 20 [...] s with feeding tube less than 14 [place] (Dobhoff, J-tube etc) and pediatric and patients. Furosemide No Notes: Memor ia 9-13 (Same as: l 21:00: Lasix) May 00 cause GI upset. Give with food or milk. tramadol Yes 50 mg = 1 Ross shannon hydrochlori 9-13 tab, PO, l de 50 MG 17:22: Q6H, # 10 Herm ada Oral Tablet 00 tab, 0 Refill(s), Pharmacy: [facility], 193.04, cm, 07/25/21 3:56:00 CDT, Height, 161.534, kg, 07/23/21 9:12:00 CDT, Weight levothyroxi Yes 50 Memori a ne 50 mcg 9-13 microgram l (0.05 mg) 15:04: = 1 tab, Herm ada oral tablet 00 PO, Q630AM, # 30 tab, 0 Refill(s), Pharmacy: [facility], 193.04, cm, 07/25/21 3:56:00 CDT, Height, 161.534, kg, 07/23/21 9:12:00 CDT, Weight sacubitril Yes 1 tab, PO, M emoria 24 MG / 9-13 Q12H, # 60 l valsartan 15:04: tab, 0 Riaz n 26 MG Oral 00 Refill(s), Tablet Pharmacy: [Entresto] [facility], 193.04, cm, 07/25/21 3:56:00 CDT, Height, 161.534, kg, 07/23/21 9:12:00 CDT, Weight tamsulosin Yes 0.4 mg = 1 M emoria 0.4 mg oral 9-13 cap, PO, l capsule 15:04: After Max 00 Breakfast, # 30 cap, 0 Refill(s), Pharmacy: [facility], 193.04, cm, 07/25/21 3:56:00 CDT, Height, 161.534, kg, 07/23/21 9:12:00 CDT, Weight Furosemide 0 Yes 40 mg = 1 Me moria 40 MG Oral 9-13 tab, PO, l Tablet 15:03: BID [place] 00 Diuretic, # 60 tab, 0 Refill(s), Pharmacy: [facility], 193.04, cm, 07/25/21 3:56:00 CDT, Height, 161.534, kg, 07/23/21 9:12:00 CDT, Weight carvedilol 2020-0 Yes 6.25 mg = Me moria 6.25 mg 9-13 1 tab, PO, l oral tablet 15:03: Q12H, # 60 Max 00 tab, 0 Refill(s), Pharmacy: [facility], 193.04, cm, 07/25/21 3:56:00 CDT, Height, 161.534, kg, 07/23/21 9:12:00 CDT, Weight clopidogrel 2020-0 Yes 75 mg = 1 M emoria 75 mg oral 9-13 tab, PO, l tablet 15:03: Daily, # Max 00 60 tab, 0 Refill(s), Pharmacy: [facility], 193.04, cm, 07/25/21 3:56:00 CDT, Height, 161.534, kg, 07/23/21 9:12:00 CDT, Weight ferrous 0 Yes 325 mg = 1 Ross shannon sulfate 325 9-13 tab, PO, l MG Oral 15:03: Daily, # Riaz n Tablet 00 30 tab, 0 Refill(s), Pharmacy: [facility], 193.04, cm, 07/25/21 3:56:00 CDT, Height, 161.534, kg, 07/23/21 9:12:00 CDT, Weight apixaban 5 0 Yes 5 mg = 1 Mem oria mg oral 9-13 tab, PO, l tablet 15:02: Q12H, For Riaz n 00 Atrial Fibrillati on, # 60 tab, 0 Refill(s), Pharmacy: [facility], 193.04, cm, 07/25/21 3:56:00 CDT, Height, 161.534, kg, 07/23/21 9:12:00 CDT, Weight AMIODarone 2020-0 Yes 400 mg = 2 M emoria 200 mg oral 9-13 tab, PO, l tablet 15:01: BID, # 90 Riaz n 00 tab, 0 Refill(s), Pharmacy: [facility], 193.04, cm, 07/25/21 3:56:00 CDT, Height, 161.534, kg, 07/23/21 9:12:00 CDT, Weight Plavix No Notes: Memoria 07-29 (Same As: l 14:00: Plavix) ferrous No Notes: Memoria sulfate 07-29 Give with l 14:00: food. iron elemental 32ul=724xg as ferrous sulfate Dose=___mg elemental iron Furosemide No Notes: Memor ia 07-29 (Same as: l 13:09: Lasix) MEDICATION WASTE [...] s with feeding tube less than 14 [place] (Dobhoff, J-tube etc) and pediatric and patients. [...] 1 UT (Flomax) 9-13 [facility]:00: mouth 1 hr [...] 1 00 (one) time each day. tamsulosin 202-0 Yes 1{capsu QD Take 1 UT (Flomax) [...] s with feeding tube less than 14 [place] (Dobhoff, J-tube etc) and pediatric and patients. Flomax No Notes: Memoria 9-12 (Same As: l 13:30: Flomax) [place] "Do Not Crush" Eliquis No Notes: Memoria 9-12 Same as: l 02:00: Eliquis Furosemide No Notes: Memor ia 9-11 (Same as: l 21:00: Lasix) [place] 00 Thyroxine No Notes: Memori a 9-11 Take 1 l 11:30: hour before or 2 hours after meal; Enteral feeds may interefere with the absorption of this medication .(Same as:Levothr oid, Synthroid) carvedilol No Notes: Memor ia 9-11 Give with l 02:00: food. Max 00 (Same As: Coreg) sacubitril No Notes: Memor [...] Posiflush) Sodium No 250 mL, Memoria Chloride 9-10 Route: l 0.9% IV 21:52: IVPB, Start date: 07/26/21 16:52:00 CDT, Duration: 30 day, Stop date: 08/25/21 16:51:00 CDT, PRN Line Flush, 0 heparin No Notes: Memoria sodium, 9-10 porcine l porcine 21:00: heparin Max 2500 UNT/ML 00 Injectable Solution Losartan No [...] l 14:29: food. (Same As: Coreg) Insulin No 40 unit, Memori a Glargine 10 Route: l 14:00: SUB-Q, Daily, Dosing Weight 161.534, kg, Start date: 07/26/21 9:00:00 CDT, Duration: 30 day, Stop date: 08/24/21 9:00:00 CDT gabapentin No Notes: Memor ia 9-10 (Same as: l 14:00: Neurontin) Bisacodyl No Notes: Memori a 9-10 (Same As: l 13:57: Dulcolax, Bisco-Lax) Furosemide No Notes: Memor ia 9-10 (Same as: l 13:54: Lasix) atorvastati No [...] Lispro 07-25 (Same as: l 22:43: Humalog) Roll in palms of hands gently; Do not shake vigorously . WASTE: F/P - Black; E - Municipal Trash Bin Stable for 28 days at room temperatur e. Expires in days from ____Date Tramadol No Notes: Not Mem oria 07-25 to exceed l 21:00: 400mg/day. (Same As: Ultram) albumin No 250 mL, Memoria human 5% 07-25 Route: IV, l intravenous 17:32: Dosing Herm ada solution Weight 161.534, kg, ONCE, Start date: 07/25/21 12:32:00 CDT, Stop date: 07/25/21 12:32:00 CDT, Indication : Non-hemorr hagic shock Reglan No Notes: Memoria 07-25 (Same as: l 17:00: Reglan) [place] 00 Acetaminoph No Notes: Do M emoria en 07-25 not exceed l 15:51: 4 gm/day. [place] (Same as: Tylenol) Zofran No Notes: Memoria 07-25 (Same as: l 15:51: Zofran) [place] 00 MEDICATION WASTE Product Size: 4 mg Product Wasted: ___ mg Fentanyl No 50 Memoria 07-25 microgram, l 15:48: Route: IV, Max 00 ONCE, Dosing Weight 161.534, kg, Start date: 07/25/21 10:48:00 CDT, Stop date: 07/25/21 10:48:00 CDT Ipratropium No Notes: SEE Memoria [place] 0.2 07-25 RT l MG/ML 15:06: DOCUMENTAT Riaz n Inhalant 00 ION (Same Solution as:Atroven t) Thyroxine No Notes: Memori a 07-25 (Same as: l 14:00: Synthroid) Reconstitu te with 5ml of NS. Final concentrat ion = 20 micrograms /ml. Use immediatel y after reconstitu tion and discard remaining solution. heparin No Notes: Memoria sodium, 07-25 porcine l porcine 14:00: heparin [place] 2500 UNT/ML 00 Injectable Solution docusate No Notes: Memoria sodium 07-25 (Same as: l 14:00: Colace) [place] (Do Not Crush) Miralax No Notes: Memoria 07-25 Dissolve l 14:00: in 8 oz of [place] water or juice. (Same as: Miralax) sennosides, No Notes: Ross shannon SHELTER 8.6 MG 07-25 (Same as: l Oral Tablet 14:00: Senokot) He rm Aspirin 81 No Notes: Do Me moria MG Enteric 07-25 not crush l Coated 14:00: or chew. Max Tablet (Same As: Ecotrin) Amiodarone No Notes: Memor ia 07-25 (Same as: l 14:00: Cordarone) [place] 00 Flexeril No Notes: Memoria 07-25 (Same As: l 14:00: Flexeril) [place] 00 Lasix No Notes: Memoria 07-25 (Same as: l 13:33: Lasix) [place] 00 72 HR No Notes: Memoria Scopolamine 07-25 Remove old l 0.0139 13:22: patch Max MG/HR 00 before Transdermal applicatio Patch n of new patch Change patch every 72 hours (Same as: Transderm- Scop) Vasopressin No Notes: Ross shannon (SHELTER) 07-25 (Same As: l 02:46: Pitressin, Max 00 Vasostrict ) albumin No Notes: Lot Ross shannon human 25% 07-25 #: l intravenous 02:46: Max solution 00 ___ Mfg: (Same as: Plasbumin- 25) "blood product derivative " WASTE: F/P - Red; E -Red MEDICATION WASTE Product Size: 25 gm Product Wasted: ___ gm vancomycin 2000 mg: Me moria + Sodium 07-25 infuse l Chloride 02:00: over 2.5 Debra nn 0.9% IV 500 00 hours For mL adult patients only: Round to nearest 250 mg per Medical Staff approval MEDICATION WASTE Product Size: 1000 mg Product Wasted: ___ mg albumin No Notes: Memoria human 5% 07-24 LOT#: l intravenous 23:45: [...] date: 07/24/21 17:00:00 CDT,... albumin No Notes: Memoria human 25% 07-24 LOT#: l intravenous 21:39: Max solution 00 ___ Mfg: WASTE: F/P - Red; E -Red (Same as: Albuminar) "blood product derivative " albumin No Notes: Lot Ross shannon human 25% 07-24 #: l intravenous 21:30: [...] Memori a 07-24 (Same l 20:30: as:[facility] [place] 00 r) Final conc = 0.2 mg/ml. Premix solution. Dexmedetomi No Notes: Use Memoria dine 07-24 the l 20:30: following cdm for [id number]. vecuronium No Route: IV, M emoria (ANES) 07-24 Drug form: l 20:20: INJ, ONCE, Stop date: 07/24/21 15:20:00 CDT Potassium No Notes: Memori a Chloride 07-24 (Same as: l 20:13: KCL) 10 00 mEq/100ml product recommende d for peripheral line administra tion. Infuse no faster than 10 mEq/hr if given peripheral ly. sodium No Notes: Memoria phosphate 07-24 Infuse l 20:13: over 4 00 hour. Do not infuse phosphorou s concurrent ly in the same line as TPN or IVF that contains calcium. For double lumen central lines, phosphorou s may be infused in a separate lumen from TPN. potassium No Notes: Memori a phosphate 07-24 (Same as: l 20:13: K Phosphate. ) Do not infuse phosphorou s concurrent ly in the same line as TPN or IVF that contains calcium. For double lumen central lines, phosphorou s may be infused in a separate lumen from TPN. 1 mMol phoshate has 1.47 mEq potassium Infuse over 4 hours potassium No Notes: Memori a phosphate-s 07-24 (Same as: l odium 20:13: Phos-NaK) [place] phosphate 00 Each 1.5 250 mg-280 gm pkt has mg-160 mg 250mg oral powder phosphorou for s. Mix reconstitut w/2.5oz ion water and stir. Magnesium No Notes: Memori a Sulfate 07-24 WASTE: F/P l 20:13: - Sink; E - Municipal Trash Bin Magnesium No Notes: Memori a Oxide 07-24 (Same as: l 20:13: Mag-Ox Max 00 400) Magnesium oxide 494ax=799u g elemental magnesium Dose=____m g magnesium oxide [...] 07-24 Drug form: l 19:54: INJ, ONCE, [place] 00 Stop date: 07/24/21 14:54:00 CDT potassium No Route: IV, Me moria chloride 07-24 Drug form: l (ANES) 19:28: INJ, ONCE, Debra nn Stop date: 07/24/21 14:28:00 CDT DDAVP No Notes: Memoria 07-24 (Same As: l 19:18: DDAVP) MEDICATION WASTE Product Size: 4 microgram Product Wasted: ___ microgram cefepime No Route: IV, Mem oria (ANES) 07-24 Drug form: l 19:17: INJ, ONCE, [place] Stop date: 07/24/21 14:17:00 CDT vancomycin No Route: IV, M emoria (ANES) 07-24 Drug form: l 19:17: INJ, ONCE, [place] 00 Stop date: 07/24/21 14:17:00 CDT Insulin No [...] 25 gm, 50 Ross shannon 50% Syringe 9-08 mL, Route: l (D50W) 19:14: IVP, Drug Riaz n 00 Form: INJ, Dosing Weight 161.534, kg, PRN, PRN Blood Glucose Results, Start date: 07/24/21 14:14:00 CDT, Duration: 30 day, Stop date: 08/23/21 14:13:00 CDT, 0 norepinephr No Route: IV, Memoria ine (ANES) 07-24 Drug form: l 32 19:05: INJ, Start [place] microgram 00 date: 07/24/21 14:05:00 CDT, Stop date: 07/24/21 15:05:00 CDT calcium No Route: IV, Ross shannon chloride 07-24 Drug form: l (ANES) 18:51: INJ, ONCE, Debra nn 00 Stop date: 07/24/21 13:51:00 CDT protamine No Route: IV, Me moria (ANES) 10 07-24 Drug form: l mg 18:24: INJ, Start [place] 00 date: 07/24/21 13:24:00 CDT, Stop date: [...] Drug form: l (ANES) 16:22: INJ, ONCE, Debra nn Stop date: 07/24/21 11:22:00 CDT heparin No Route: IV, Ross shannon (ANES) 07-24 Drug form: l 16:12: INJ, ONCE, Stop date: 07/24/21 11:12:00 CDT AMIODarone No Route: IV, M emoria (ANES) 50 07-24 Drug form: l mg 16:12: INJ, Start date: 07/24/21 11:12:00 CDT, Stop date: 07/24/21 12:12:00 CDT phenylephri No Route: IV, Memoria ne (ANES) 07-24 Drug form: l 15:40: INJ, ONCE, Stop date: 07/24/21 10:40:00 CDT Amicar No Route: IV, Memor ia (ANES) 07-24 Drug form: l 15:40: INJ, ONCE, Stop date: 07/24/21 10:40:00 CDT propofol No Route: IV, Mem oria (ANES) 07-24 [...] 07-24 Drug form: l 15:02: INJ, ONCE, Max Stop date: 07/24/21 10:02:00 CDT vecuronium No Route: IV, Cammy emoria (ANES) 07-24 Drug form: l 15:02: INJ, ONCE, Max Stop date: 07/24/21 10:02:00 CDT AMIODarone No Route: IV, Cammy emoria (ANES) 900 07-24 Drug form: l mg 14:08: INJ, Start [place] date: 07/24/21 9:08:00 CDT, Stop date: 07/24/21 10:08:00 CDT milrinone No Route: IV, Me moria (ANES) 0.2 07-24 Drug form: l mg 13:54: INJ, Start [place] date: 07/24/21 8:54:00 CDT, Stop date: 07/24/21 9:54:00 CDT Insulin No Route: IV, Ross shannon regular 07-24 Drug form: l (ANES) 1 13:47: INJ, Start Her baer unit date: 07/24/21 8:47:00 CDT, Stop date: 07/24/21 9:47:00 CDT Amicar No Route: IV, Memor ia (ANES) 5000 [...] shannon 07-24 (Same as: l 12:39: Exparel) Max 00 NOT FOR IV use Postoperat hannah [...] SUB-Q, l 1.5 ML 15:35: qWeek, 0 [place] semaglutide 00 Refill(s) 1.34 MG/ML Pen Injector [Ozempic] Tresiba Yes 40 unit, Memori a 07-19 SUB-Q, l 15:34: Daily, 0 [place] 00 Refill(s) empaglifloz 2021-0 Yes 1{tbl} QD Take 1 UT in 07-16 tablet by [employer] ([employer]) 14:23: mouth 1 25 MG 03 (one) time each day. empaglifloz 2021-0 Yes 1{tbl} QD Take 1 UT in 07-16 tablet by [employer] ([employer]) 14:23: mouth 1 25 MG 03 (one) time each day. empaglifloz 2021-0 Yes 1{tbl} QD Take 1 UT in 07-16 tablet by [employer] ([employer]) 14:23: mouth 1 25 MG 03 (one) time each day. apixaban 1-0 Yes 5mg Q.5D Take 5 mg UT (Eliquis) 5 07-16 by mouth 2 He alth MG tablet 14:21: (two) 39 times a day. apixaban 2021-0 Yes 5mg Q.5D Take 5 mg UT (Eliquis) 5 07-16 by mouth 2 He alth MG tablet 14:21: (two) 39 times a day. apixaban 1-0 Yes 5mg Q.5D Take 5 mg UT (Eliquis) 5 07-16 by mouth 2 He alth MG tablet 14:21: (two) 39 times a day. Insulin 2020-0 2021- No 20U Q.5D Inject 20 UT Regular 07-16 Units as [facility] 14:21: 00:00 directed 2 (REL[employer] R 11 :00 (two) IJ) times a day. empaglifloz 2021-0 Yes 1{tbl} QD Take 1 UT in 07-16 tablet by [employer] ([employer]) 09:23: mouth 1 25 MG 03 (one) time each day. empaglifloz 2021-0 Yes 1{tbl} QD Take 1 UT in 07-16 tablet by [employer] ([employer]) 09:23: mouth 1 25 MG 03 (one) time each day. empaglifloz 2021-0 Yes 1{tbl} QD Take 1 UT in 07-16 tablet by [employer] ([employer]) 09:23: mouth 1 25 MG 03 (one) time each day. empaglifloz 2021-0 Yes 1{tbl} QD Take 1 UT in 07-16 tablet by [employer] ([employer]) 09:23: mouth 1 25 MG 03 (one) time each day. empaglifloz 1-0 Yes 1{tbl} QD Take 1 UT in 07-16 tablet by [employer] ([employer]) 09:23: mouth 1 25 MG 03 (one) time each day. empaglifloz 2021-0 Yes 1{tbl} QD Take 1 UT in 07-16 tablet by [employer] ([employer]) 09:23: mouth 1 25 MG 03 (one) time each day. apixaban 1-0 Yes 5mg Q.5D Take [...] 09:21: (two) 39 times a day. apixaban 1-0 Yes 5mg Q.5D Take 5 mg UT (Eliquis) 5 8-31 by mouth 2 He alth MG tablet 09:21: (two) 39 times a day. apixaban 2021-0 Yes 5mg Q.5D Take 5 mg UT (Eliquis) 5 8-31 by mouth 2 He alth MG tablet 09:21: (two) 39 times a day. apixaban 1-0 Yes 5mg Q.5D Take 5 mg UT (Eliquis) 5 8-31 by mouth 2 He alth MG tablet 09:21: (two) 39 times a day. Ozempic, 2020-0 Yes .5mg Inject 0.5 UT 0.25 or 0.5 8-24 mg under [facility] MG/DOSE, 2 00:00: the skin 1 MG/1.5ML 00 (one) time solution per week. pen-injecto r Ozempic, 1-0 Yes .5mg Inject 0.5 UT 0.25 or 0.5 8-24 mg under [facility] MG/DOSE, 2 00:00: the skin 1 MG/1.5ML 00 (one) time solution per week. pen-injecto r Ozempic, 2020-0 Yes .5mg Inject 0.5 UT 0.25 or 0.5 8-24 mg under [facility] MG/DOSE, 2 00:00: the skin 1 MG/1.5ML 00 (one) time solution per week. pen-injecto r Ozempic, 2020-0 Yes .5mg Inject 0.5 UT 0.25 or 0.5 8-24 mg under [facility] MG/DOSE, 2 00:00: the skin 1 MG/1.5ML 00 (one) time solution per week. pen-injecto r Ozempic, 2020-0 Yes .5mg Inject 0.5 UT 0.25 or 0.5 8-24 mg under [facility] MG/DOSE, 2 00:00: the skin 1 MG/1.5ML 00 (one) time solution per week. pen-injecto r Ozempic, 2020-0 Yes .5mg Inject 0.5 UT 0.25 or 0.5 8-24 mg under [facility] MG/DOSE, 2 00:00: the skin 1 MG/1.5ML 00 (one) time solution per week. pen-injecto r Ozempic, 2020-0 Yes .5mg Inject 0.5 UT 0.25 or 0.5 8-24 mg under [facility] MG/DOSE, 2 00:00: the skin 1 MG/1.5ML 00 (one) time solution per week. pen-injecto r Ozempic, 2020-0 Yes .5mg Inject 0.5 UT 0.25 or 0.5 8-24 mg under [facility]al [facility] MG/DOSE, 2 00:00: the skin 1 MG/1.5ML 00 (one) time solution per week. pen-injecto r Ozempic, 2020-0 Yes .5mg Inject 0.5 UT 0.25 or 0.5 8-24 mg under [facility]al [facility] MG/DOSE, 2 00:00: the skin 1 MG/1.5ML 00 (one) time solution per week. pen-injecto r Ozempic, 2020-0 Yes .5mg Inject 0.5 UT 0.25 or 0.5 8-24 mg under [facility] MG/DOSE, 2 00:00: the skin 1 MG/1.5ML 00 (one) time solution per week. pen-injecto r Ozempic, 2020-0 Yes .5mg Inject 0.5 UT 0.25 or 0.5 8-24 mg under [facility]al [facility] MG/DOSE, 2 00:00: the skin 1 MG/1.5ML 00 (one) time solution per week. pen-injecto r Ozempic, 2020-0 Yes .5mg Inject 0.5 UT 0.25 or 0.5 8-24 mg under [facility]al th MG/DOSE, 2 00:00: the skin 1 MG/1.5ML 00 (one) time solution per week. pen-injecto r Ozempic, 2020-0 Yes .5mg Inject 0.5 UT 0.25 or 0.5 8-24 mg under [facility] MG/DOSE, 2 00:00: the skin 1 MG/1.5ML 00 (one) time solution per week. pen-injecto r Ozempic, 2020-0 Yes .5mg Inject 0.5 UT 0.25 or 0.5 8-24 mg under [facility]al [facility] MG/DOSE, 2 00:00: the skin 1 MG/1.5ML 00 (one) time solution per week. pen-injecto r Ozempic, 2020-0 Yes .5mg Inject 0.5 UT 0.25 or 0.5 8-24 mg under [facility]al th MG/DOSE, 2 00:00: the skin 1 MG/1.5ML 00 (one) time solution per week. pen-injecto r Ozempic, 2020-0 Yes .5mg Inject 0.5 UT 0.25 or 0.5 8-24 mg under [facility]al th MG/DOSE, 2 00:00: the skin 1 MG/1.5ML 00 (one) time solution per week. pen-injecto r Ozempic, 2020-0 Yes .5mg Inject 0.5 UT 0.25 or 0.5 8-24 mg under [facility]al th MG/DOSE, 2 00:00: the skin 1 MG/1.5ML 00 (one) time solution per week. pen-injecto r Ozempic, 2020-0 Yes .5mg Inject 0.5 UT 0.25 or [...] time solution per week. pen-injecto r semaglutide Yes .5mg 0.5 mg. UT (Ozempic, 8-03 Health 0.25 or 0.5 00:00: MG/DOSE,) 2 00 MG/1.5ML solution pen-injecto r insulin Yes 38U QD Inject 38 UT degludec [...] Inject UT NPH-insulin 7-27 under the [facility] regular 14:25: skin 2 (NovoLIN) 25 (two) [...] 14:25: (two) 25 times a day. insulin 0 Yes Inject UT NPH-insulin 7-27 under the [facility] regular 14:25: skin 2 (NovoLIN) 25 (two) [...] 14:25: (two) 25 times a day. insulin 0 Yes Inject UT NPH-insulin 7-27 under the [facility] regular 14:25: skin 2 (NovoLIN) 25 (two) [...] Yes Inject UT NPH-insulin 7-27 under the [facility] regular 14:25: skin 2 (NovoLIN) 25 (two) (70-30) 100 times a UNIT/ML day before injection meals. Insulin 2020-0 Yes 20U Q.5D Inject 20 UT Regular 7-27 Units as [facility] 14:25: directed 2 (RELION R 25 (two) IJ) times a day. insulin 2020-0 Yes Inject UT NPH-insulin 7-27 under the [facility] regular 14:25: skin 2 (NovoLIN) 25 (two) (70-30) 100 times a UNIT/ML day before injection meals. insulin 0 Yes Inject UT NPH-insulin 7-27 under the [facility] regular 14:25: skin 2 (NovoLIN) 25 (two) (70-30) 100 times a UNIT/ML day before injection meals. insulin 0 Yes Inject UT NPH-insulin 7-27 under the [facility] regular 14:25: skin 2 (NovoLIN) 25 (two) (70-30) 100 times a UNIT/ML day before injection meals. Insulin NPH 2020- No Inject UT Isophane & 7-27 07-27 under the [facility] Regular 14:21: 00:00 skin. (NOVOLIN 45 :00 70/30 SC) insulin 2020-0 Yes Inject UT NPH-insulin 7-27 under the [facility] regular 09:25: skin 2 (NovoLIN) 25 (two) (70-30) 100 times a UNIT/ML day before injection meals. insulin 0 Yes Inject UT NPH-insulin 7-27 under the [facility] regular 09:25: skin 2 (NovoLIN) 25 (two) (70-30) 100 times a UNIT/ML day before injection meals. insulin 0 Yes Inject UT NPH-insulin 7-27 under the [facility] regular 09:25: skin 2 (NovoLIN) 25 (two) (70-30) 100 times a UNIT/ML day before injection meals. insulin 0 Yes Inject UT NPH-insulin 7-27 under the [facility] regular 09:25: skin 2 (NovoLIN) 25 (two) (70-30) 100 times a UNIT/ML day before injection meals. insulin 2020-0 Yes Inject UT NPH-insulin 7-27 under the [facility] regular 09:25: skin 2 (NovoLIN) 25 (two) (70-30) 100 times a UNIT/ML day before injection meals. insulin 2020-0 Yes Inject UT NPH-insulin 7-27 under the [facility] regular 09:25: skin 2 (NovoLIN) 25 (two) (70-30) 100 times a UNIT/ML day before injection meals. insulin 2020-0 Yes Inject UT NPH-insulin 7-27 under the [facility] regular 09:25: skin 2 (NovoLIN) 25 (two) (70-30) 100 times a UNIT/ML day before injection meals. insulin 2020-0 Yes Inject UT NPH-insulin 7-27 under the [facility] regular 09:25: skin 2 (NovoLIN) 25 (two) (70-30) 100 times a UNIT/ML day before injection meals. insulin 2020-0 Yes Inject UT NPH-insulin 7-27 under the [facility] regular 09:25: skin 2 (NovoLIN) 25 (two) (70-30) 100 times a UNIT/ML day before injection meals. insulin 2020-0 Yes Inject UT NPH-insulin 7-27 under the [facility] regular 09:25: skin 2 (NovoLIN) 25 (two) (70-30) 100 times a UNIT/ML day before injection meals. insulin 0 Yes Inject UT NPH-insulin 7-27 under the [facility] regular 09:25: skin 2 (NovoLIN) 25 (two) (70-30) 100 times a UNIT/ML day before injection meals. insulin 2020-0 Yes Inject UT NPH-insulin 7-27 under the [facility] regular 09:25: skin 2 (NovoLIN) 25 (two) (70-30) 100 times a UNIT/ML day before injection meals. insulin 2020-0 Yes Inject UT NPH-insulin 7-27 under the [facility] regular 09:25: skin 2 (NovoLIN) 25 (two) (70-30) 100 times a UNIT/ML day before injection meals. insulin 2020-0 Yes Inject UT NPH-insulin 7-27 under the [facility] regular 09:25: skin 2 (NovoLIN) 25 (two) (70-30) 100 times a UNIT/ML day before injection meals. insulin 2020-0 Yes Inject UT NPH-insulin 7-27 under the [facility] regular 09:25: skin 2 (NovoLIN) 25 (two) (70-30) 100 times a UNIT/ML day before injection meals. insulin 2020-0 Yes Inject UT NPH-insulin 7-27 under the [facility] regular 09:25: skin 2 (NovoLIN) 25 (two) (70-30) 100 times a UNIT/ML day before injection meals. insulin 2020-0 Yes Inject UT NPH-insulin 7-27 under the [facility] regular 09:25: skin 2 (NovoLIN) 25 (two) (70-30) 100 times a UNIT/ML day before injection meals. insulin 2020-0 Yes Inject UT NPH-insulin 7-27 under the [facility] regular 09:25: skin 2 (NovoLIN) 25 (two) (70-30) 100 times a UNIT/ML day before injection meals. insulin 2020-0 Yes Inject UT NPH-insulin 7-27 under the [facility] regular 09:25: skin 2 (NovoLIN) 25 (two) (70-30) 100 times a UNIT/ML day before injection meals. insulin 2020-0 Yes Inject UT NPH-insulin 7-27 under the [facility] regular 09:25: skin 2 (NovoLIN) 25 (two) (70-30) 100 times a UNIT/ML day before injection meals. insulin 2020-0 Yes Inject UT NPH-insulin 7-27 under the [facility] regular 09:25: skin 2 (NovoLIN) 25 (two) (70-30) 100 times a UNIT/ML day before injection meals. insulin 0 Yes Inject UT NPH-insulin 7-27 under the [facility] regular 09:25: skin 2 (NovoLIN) 25 (two) (70-30) 100 times a UNIT/ML day before injection meals. insulin 2020-0 Yes Inject UT NPH-insulin 7-27 under the [facility] regular 09:25: skin 2 (NovoLIN) 25 (two) (70-30) 100 times a UNIT/ML day before injection meals. insulin 2020-0 Yes Inject UT NPH-insulin 7-27 under the [facility] regular 09:25: skin 2 (NovoLIN) 25 (two) (70-30) 100 times a UNIT/ML day before injection meals. insulin 2020-0 Yes Inject UT NPH-insulin 7-27 under the [facility] regular 09:25: skin 2 (NovoLIN) 25 (two) (70-30) 100 times a UNIT/ML day before injection meals. Sodium 2020-0 No 750 mL, Memoria Chloride 7 Rate: 75 l 0.9% IV 750 17:42: ml/hr, Herm ada mL 00 Infuse over: 10 hr, Route: IV, Dosing Weight 166.273 kg, Total Volume: 750, Start date: 06/05/21 12:42:00 CDT, Duration: 10 hr, Stop date: 06/05/21 22:41:00 CDT, BSA: 3.02 m2, 0 NovoLIN 0 Yes 50 unit, Memori a 70/30 7- SUB-Q, l 15:45: BID, 0 Max 00 Refill(s) Rhiannon No See Memoria 06-05 Instructio l 15:44: ns, PO, 0 Max 00 Refill(s) insulin Yes Inject UT NPH-insulin 7-20 under the [facility] regular 18:30: skin 2 (NovoLIN) 53 (two) (70-30) 100 times a UNIT/ML day before injection meals. Insulin NPH Yes Inject UT Isophane & 7-20 under the [facility] Regular 18:30: skin. (NOVOLIN 53 70/30 SC) apixaban 2020-0 Yes 5mg Q.5D Take 5 mg UT (Eliquis) 5 7-20 by mouth 2 He alth MG tablet 18:29: (two) 13 times a day. apixaban 2020-0 Yes 5mg Q.5D Take 5 mg UT (Eliquis) 5 7-08 by mouth 2 He alth MG tablet 16:36: (two) 01 times a day. atorvastati 0 Yes 40mg Take 40 [...] MG 00:00: every tablet 00 night. furosemide 2021-0 Yes 1{tbl} Q.5D Take 1 UT (Lasix) [...] MG 00:00: every tablet 00 night. furosemide 2020- Yes 1{tbl} Q.5D Take 1 UT (Lasix) [...] 0.9% 6-03 (Same as: l 14:00: BD [place] 00 Posiflush) Saline No Notes: Memoria Flush 0.9% 6-03 (Same as: l 12:50: BD [place] 00 Posiflush) AMIODarone Yes 200 mg = 1 M emoria 200 mg oral 5-07 tab, PO, l tablet 17:58: Daily, # Max 00 90 tab, 1 Refill(s), Pharmacy: [id number], 185.42, cm, 03/22/21 11:01:00 CDT, Height, 164.545, kg, 03/22/21 11:01:00 CDT, Weight Regular Yes 10 unit, Memori a Insulin, 5-07 SUB-Q, l Human 100 16:09: BID, # 10 baer UNT/ML 00 mL, 0 Injectable Refill(s) Solution Aspirin 81 Yes 81 mg = 1 Me moria MG Enteric 5-07 tab, PO, l Coated 16:08: Daily, # Max Tablet 00 90 tab, 3 Refill(s) Metoprolol [...] PO, l Oral Tablet 16:06: Bedtime, # [place] [Lipitor] 00 90 tab, 0 Refill(s) Digoxin Yes 125 Memoria 0.125 MG 5-07 microgram l Oral Tablet 16:06: = 1 tab, [place] 00 PO, Daily, Hold if HR <50., # 90 tab, 1 Refill(s) apixaban 5 Yes 5 mg, PO, Me moria MG Oral 5-07 Q12H, tab, l Tablet 16:04: 0 Max [Eliquis] 00 Refill(s), For Atrial Fibrilatio n Pacerone Yes 200mg QD Take 200 UT 200 MG 5-07 mg by Health tablet 00:00: mouth 1 00 (one) time each day. Pacerone Yes 200mg QD Take 200 UT 200 MG 5-07 mg by Health tablet 00:00: mouth 1 00 (one) time each day. Pacerone Yes 200mg QD Take 200 UT 200 MG 5-07 mg by Health tablet 00:00: mouth 1 00 (one) time each day. Pacerone Yes 200mg QD Take 200 UT [...] 1 00 (one) time each day. Pacerone Yes 200mg QD Take 200 UT 200 MG 5-07 mg by Health tablet 00:00: mouth 1 00 (one) time each day. Pacerone 0 Yes 200mg QD Take 200 UT 200 MG 5-07 mg by Health tablet 00:00: mouth 1 00 (one) time each day. Pacerone Yes 200mg QD Take 200 UT 200 MG 5-07 mg by Health tablet 00:00: mouth 1 00 (one) time each day. aspirin 81 Yes [id number] 81mg Take 1 U nivers mg chewable 1-28 tablet by ity of tablet 00:00: mouth [place] 00 daily. [facility] atorvastati Yes [id number] 40mg Take 1 [facility] n 40 mg 1-28 tablet by ity of tablet 00:00: mouth at [place] 00 bedtime. Medical Branch digoxin 125 Yes [id number] 125ug Take 1 [facility] mcg (0.125 1-28 tablet by ity of mg) tablet 00:00: mouth [place] 00 daily. [facility] Branch furosemide Yes [id number] 80mg Take 1 U nivers 80 mg 1-28 tablet by ity of tablet 00:00: mouth [place] 00 every Medical morning Branch and evening. losartan 25 Yes [id number] 12.5mg Take 0.5 [facility] mg tablet 1-28 tablets by ity of 00:00: mouth [place] 00 daily. Medical Branch metoprolol Yes [id number] 100mg Take 1 [facility] succinate 1-28 tablet by ity o f XL 100 mg 00:00: mouth 2 [place] 24 hr 00 (two) Medical tablet times Branch daily. spironolact Yes [id number] 25mg Take 1 [facility] one 25 mg 1-28 tablet by ity o f tablet 00:00: mouth [place] 00 daily. Medical Branch aspirin 81 Yes [id number] 81mg Take 1 U nivers mg chewable 1-28 tablet by ity of tablet 00:00: mouth [place] 00 daily. [facility] Branch atorvastati Yes [id number] 40mg Take 1 [facility] n 40 mg 1-28 tablet by ity of tablet 00:00: mouth at [place] 00 bedtime. Medical Branch digoxin 125 0 Yes [id number] 125ug Take 1 [facility] mcg (0.125 1-28 tablet by ity of mg) tablet 00:00: mouth [place] 00 daily. Medical Branch furosemide 0 Yes [id number] 80mg Take 1 U nivers 80 mg 1-28 tablet by ity of tablet 00:00: mouth [place] 00 every Medical morning Branch and evening. losartan 25 2020-0 Yes [id number] 12.5mg Take 0.5 [facility] mg tablet 1-28 tablets by ity of 00:00: mouth [place] 00 daily. Medical Branch metoprolol 0 Yes [id number] 100mg Take 1 [facility] succinate 1-28 tablet by ity o f XL 100 mg 00:00: mouth 2 [place] 24 hr 00 (two) Medical tablet times Branch daily. spironolact 2020-0 Yes [id number] 25mg Take 1 [facility] one 25 mg 1-28 tablet by ity o f tablet 00:00: mouth [place] 00 daily. Medical [facility] aspirin 81 0 Yes [id number] 81mg Take 1 U nivers mg chewable 1-28 tablet by ity of tablet 00:00: mouth [place] 00 daily. [facility] Branch atorvastati 0 Yes [id number] 40mg Take 1 [facility] n 40 mg 1-28 tablet by ity of tablet 00:00: mouth at [place] 00 bedtime. Medical Branch digoxin 125 2020-0 Yes [id number] 125ug Take 1 [facility] mcg (0.125 1-28 tablet by ity of mg) tablet 00:00: mouth [place] 00 daily. [facility] Branch furosemide 0 Yes [id number] 80mg Take 1 U nivers 80 mg 1-28 tablet by ity of tablet 00:00: mouth [place] 00 every Medical morning Branch and evening. losartan 25 2020-0 Yes [id number] 12.5mg Take 0.5 [facility] mg tablet 1-28 tablets by ity of 00:00: mouth [place] 00 daily. Medical Branch metoprolol 2020-0 Yes [id number] 100mg Take 1 [facility] succinate 1-28 tablet by ity o f XL 100 mg 00:00: mouth 2 [place] 24 hr 00 (two) Medical tablet times Branch daily. spironolact 2020-0 Yes [id number] 25mg Take 1 [facility] one 25 mg 1-28 tablet by ity o f tablet 00:00: mouth [place] 00 daily. Medical Branch aspirin 81 0 Yes [id number] 81mg Take 1 U nivers mg chewable 1-28 tablet by ity of tablet 00:00: mouth [place] 00 daily. [facility] Branch atorvastati 0 Yes [id number] 40mg Take 1 [facility] n 40 mg 1-28 tablet by ity of tablet 00:00: mouth at [place] 00 bedtime. Medical Branch digoxin 125 0 Yes [id number] 125ug Take 1 [facility] mcg (0.125 1-28 tablet by ity of mg) tablet 00:00: mouth [place] 00 daily. [facility] Branch furosemide 0 Yes [id number] 80mg Take 1 U nivers 80 mg 1-28 tablet by ity of tablet 00:00: mouth [place] 00 every Medical morning Branch and evening. losartan 25 Yes [id number] 12.5mg Take 0.5 [facility] mg tablet 1-28 tablets by ity of 00:00: mouth [place] 00 daily. Medical Branch metoprolol Yes [id number] 100mg Take 1 [facility] succinate 1-28 tablet by ity o f XL 100 mg 00:00: mouth 2 [place] 24 hr 00 (two) Medical tablet times Branch daily. spironolact Yes [id number] 25mg Take 1 [facility] one 25 mg 1-28 tablet by ity o f tablet 00:00: mouth [place] 00 daily. Medical Branch aspirin 81 0 Yes [id number] 81mg Take 1 U nivers mg chewable 1-28 tablet by ity of tablet 00:00: mouth [place] 00 daily. [facility] Branch atorvastati Yes [id number] 40mg Take 1 [facility] n 40 mg 1-28 tablet by ity of tablet 00:00: mouth at [place] 00 bedtime. Medical Branch digoxin 125 0 Yes [id number] 125ug Take 1 [facility] mcg (0.125 1-28 tablet by ity of mg) tablet 00:00: mouth [place] 00 daily. Medical Branch furosemide 0 Yes [id number] 80mg Take 1 U nivers 80 mg 1-28 tablet by ity of tablet 00:00: mouth [place] 00 every Medical morning Branch and evening. losartan 25 Yes [id number] 12.5mg Take 0.5 [facility] mg tablet 1-28 tablets by ity of 00:00: mouth [place] 00 daily. Medical Branch metoprolol 0 Yes [id number] 100mg Take 1 [facility] succinate 1-28 tablet by ity o f XL 100 mg 00:00: mouth 2 [place] 24 hr 00 (two) Medical tablet times Branch daily. spironolact 0 Yes [id number] 25mg Take 1 [facility] one 25 mg 1-28 tablet by ity o f tablet 00:00: mouth [place] 00 daily. Medical Branch aspirin 81 0 Yes [id number] 81mg Take 1 U nivers mg chewable 1-28 tablet by ity of tablet 00:00: mouth [place] 00 daily. [facility] Branch atorvastati Yes [id number] 40mg Take 1 [facility] n 40 mg 1-28 tablet by ity of tablet 00:00: mouth at [place] 00 bedtime. Medical Branch digoxin 125 0 Yes [id number] 125ug Take 1 [facility] mcg (0.125 1-28 tablet by ity of mg) tablet 00:00: mouth [place] 00 daily. Medical Branch furosemide Yes [id number] 80mg Take 1 U nivers 80 mg 1-28 tablet by ity of tablet 00:00: mouth [place] 00 every Medical morning Branch and evening. losartan 25 Yes [id number] 12.5mg Take 0.5 [facility] mg tablet 1-28 tablets by ity of 00:00: mouth [place] 00 daily. Medical Branch metoprolol Yes [id number] 100mg Take 1 [facility] succinate 1-28 tablet by [facility] o f XL 100 mg 00:00: mouth 2 [place] 24 hr 00 (two) Medical tablet times Branch daily. spironolact Yes [id number] 25mg Take 1 [facility] one 25 mg 1-28 tablet by [facility] o f tablet 00:00: mouth [place] 00 daily. [facility] aspirin 81 0 Yes [id number] 81mg Take 1 [facility] nivers mg chewable 1-28 tablet by [facility] of tablet 00:00: mouth [place] 00 daily. [facility] atorvastati 0 Yes [id number] 40mg Take 1 [facility] n 40 mg 1-28 tablet by [facility] of tablet 00:00: mouth at [place] 00 bedtime. [facility] digoxin 125 0 Yes [id number] 125ug Take 1 [facility] mcg (0.125 1-28 tablet by [facility] of mg) tablet 00:00: mouth [place] 00 daily. Medical Branch furosemide 0 Yes [id number] 80mg Take 1 [facility] nivers 80 mg 1-28 tablet by ity of tablet 00:00: mouth [place] 00 every Medical morning Branch and evening. losartan 25 2020-0 Yes [id number] 12.5mg Take 0.5 [facility] mg tablet 1-28 tablets by ity of 00:00: mouth [place] 00 daily. Medical Branch metoprolol 0 Yes [id number] 100mg Take 1 [facility] succinate 1-28 tablet by ity o f XL 100 mg 00:00: mouth 2 [place] 24 hr 00 (two) Medical tablet times Branch daily. spironolact 2020-0 Yes [id number] 25mg Take 1 [facility] one 25 mg 1-28 tablet by ity o f tablet 00:00: mouth [place] 00 daily. Medical Branch aspirin 81 0 Yes [id number] 81mg Take 1 [facility] n[facility] mg chewable 1-28 tablet by ity of tablet 00:00: mouth [place] 00 daily. Medical Branch atorvastati 0 Yes [id number] 40mg Take 1 [facility] n 40 mg 1-28 tablet by ity of tablet 00:00: mouth at [place] 00 bedtime. Medical Branch digoxin 125 2020-0 Yes [id number] 125ug Take 1 [facility] mcg (0.125 1-28 tablet by ity of mg) tablet 00:00: mouth [place] 00 daily. Medical Branch furosemide 0 Yes [id number] 80mg Take 1 [facility] n[facility] 80 mg 1-28 tablet by ity of tablet 00:00: mouth [place] 00 every Medical morning Branch and evening. losartan 25 2020-0 Yes [id number] 12.5mg Take 0.5 [facility] mg tablet 1-28 tablets by ity of 00:00: mouth [place] 00 daily. Medical Branch metoprolol 0 Yes [id number] 100mg Take 1 [facility] succinate 1-28 tablet by ity o f XL 100 mg 00:00: mouth 2 [place] 24 hr 00 (two) Medical tablet times Branch daily. spironolact 2020-0 Yes [id number] 25mg Take 1 [facility] one 25 mg 1-28 tablet by ity o f tablet 00:00: mouth [place] 00 daily. Medical Branch aspirin 81 2020-0 Yes [id number] 81mg Take 1 [facility] nivers mg chewable 1-28 tablet by ity of tablet 00:00: mouth [place] 00 daily. Medical Branch atorvastati Yes [id number] 40mg Take 1 [facility] n 40 mg 1-28 tablet by ity of tablet 00:00: mouth at [place] 00 bedtime. Medical Branch digoxin 125 0 Yes [id number] 125ug Take 1 [facility] mcg (0.125 1-28 tablet by ity of mg) tablet 00:00: mouth [place] 00 daily. Medical Branch furosemide Yes [id number] 80mg Take 1 [facility] 80 mg 1-28 tablet by ity of tablet 00:00: mouth [place] 00 every Medical morning Branch and evening. losartan 25 Yes [id number] 12.5mg Take 0.5 [facility] mg tablet 1-28 tablets by ity of 00:00: mouth [place] 00 daily. Medical Branch metoprolol Yes [id number] 100mg Take 1 [facility] succinate 1-28 tablet by ity o f XL 100 mg 00:00: mouth 2 [place] 24 hr 00 (two) Medical tablet times Branch daily. spironolact Yes [id number] 25mg Take 1 [facility] one 25 mg 1-28 tablet by ity o f tablet 00:00: mouth [place] 00 daily. Medical Branch aspirin 81 0 Yes [id number] 81mg Take 1 [facility] n[facility] mg chewable 1-28 tablet by ity of tablet 00:00: mouth [place] 00 daily. Medical Branch atorvastati Yes [id number] 40mg Take 1 [facility] n 40 mg 1-28 tablet by ity of tablet 00:00: mouth at [place] 00 bedtime. Medical Branch digoxin 125 2020- Yes [id number] 125ug Take 1 [facility] mcg (0.125 1-28 tablet by ity of mg) tablet 00:00: mouth [place] 00 daily. Medical Branch furosemide 2020-0 Yes [id number] 80mg Take 1 [facility] 80 mg 1-28 tablet by ity of tablet 00:00: mouth [place] 00 every Medical morning Branch and evening. losartan 25 2020-0 Yes [id number] 12.5mg Take 0.5 [facility] mg tablet 1-28 tablets by ity of 00:00: mouth [place] 00 daily. Medical Branch metoprolol Yes [id number] 100mg Take 1 [facility] succinate 1-28 tablet by ity o f XL 100 mg 00:00: mouth 2 [place] 24 hr 00 (two) Medical tablet times Branch daily. spironolact 2021-0 Yes [id number] 25mg Take 1 [facility] one 25 mg 1-28 tablet by ity o f tablet 00:00: mouth [place] 00 daily. Medical Branch aspirin 81 2021-0 Yes 81mg QD Chew [...] day. tablet aspirin 81 2021-0 Yes 81mg Chew 81 [facility] chewable 1-28 mg. Health tablet 00:00: 00 metoprolol 2021-0 Yes 100mg Q.5D Take 100 [...] 25 MG 00 each day. tablet metoprolol 2020-1 Yes 100mg Take 1 [facility] ers succinate [...] (two) Medical tablet times Branch daily. metoprolol 2019-11- No 100mg Take 1 [facility] vers succinate 1-25 -28 tablet by ity of XL 100 mg 00:00: 00:00 mouth 2 [place] 24 [place] 00 :00 (two) Medical tablet times Branch daily. metoprolol 2019-11 No 100mg Take 1 [facility] vers succinate 1-25 - tablet by ity of XL 100 mg 00:00: 00:00 mouth 2 [place] 24 [place] 00 :00 (two) Medical tablet times Branch daily. metoprolol 2019-11 No 100mg Take 1 [facility] vers succinate 1-25 - tablet by ity of XL 100 mg 00:00: 00:00 mouth 2 [place] 24 [place] 00 :00 (two) Medical tablet times Branch daily. digoxin 125 2019-11 Yes [id number] 125ug Take 1 [facility] mcg (0.125 1-20 tablet by ity of mg) tablet 00:00: mouth [place] 00 daily. Medical Branch digoxin 125 2019-11 Yes [id number] 125ug Take 1 [facility] mcg (0.125 1-20 tablet by ity of mg) tablet 00:00: mouth [place] 00 daily. Medical Branch digoxin 125 2019-11 Yes [id number] 125ug Take 1 [facility] mcg (0.125 1-20 tablet by ity of mg) tablet 00:00: mouth [place] 00 daily. Medical Branch digoxin 125 2019-11 Yes [id number] 125ug Take 1 [facility] mcg (0.125 1-20 tablet by ity of mg) tablet 00:00: mouth [place] 00 daily. Medical Branch digoxin 125 2019-11 Yes [id number] 125ug Take 1 [facility] mcg (0.125 1-20 tablet by ity of mg) tablet 00:00: mouth [place] 00 daily. Medical Branch digoxin 125 2019-11- No [id number] 125ug Take 1 [facility] mcg (0.125 1-20 -28 tablet by ity of mg) tablet 00:00: 00:00 mouth [place] 00 :00 daily. Medical Branch digoxin 125 2019-11- No [id number] 125ug Take 1 [facility] mcg (0.125 1-20 -28 tablet by ity of mg) tablet 00:00: 00:00 mouth [place] 00 :00 daily. Medical Branch digoxin 125 2019-11- No [id number] 125ug Take 1 [facility] mcg (0.125 1-20 - tablet by ity of mg) tablet 00:00: 00:00 mouth [place] 00 :00 daily. Medical Branch spironolact 2019-11 Yes 12.5mg 12.5 mg, [facility] one -19 Oral, ity of (ALDACTONE) 15:00: DAILY, [place] half tablet 00 First dose Me dical 12.5 mg (after Branch last modificati on) on Mariaelena 10/04/20 at 0900, Until Discontinu ed, Routine insulin NPH 2019-11 Yes 40U 40 Units, U nivers and regular 1-19 Subcutaneo it y of human 70-30 02:00: us, BID, [place] (HUMULIN 00 First dose Medic al 70-30 U-100 (after Branch INSULIN) last 100 unit/mL modificati (70-30) on) on Wed injection 10/03/20 40 Units at 2000, Until Discontinu ed, Routine digoxin 125 2019-11 Yes [id number] .125mg Take 1 [facility] mcg tablet 1-19 tablet by ity of 00:00: mouth [place] 00 daily. Medical Branch losartan 25 2019-11 Yes [id number] 12.5mg Take 0.5 [facility] mg tablet 1-19 tablets by ity of 00:00: mouth [place] 00 daily. Medical Branch spironolact 2019-11 Yes [id number] 12.5mg Take 0.5 [facility] one 25 mg 1-19 tablets by ity of tablet 00:00: mouth [place] 00 daily. Medical Branch digoxin 125 2019-11 Yes [id number] .125mg Take 1 [facility] mcg tablet 1-19 tablet by ity of 00:00: mouth [place] 00 daily. Medical Branch losartan 25 2019-11 Yes [id number] 12.5mg Take 0.5 [facility] mg tablet 1-19 tablets by ity of 00:00: mouth [place] 00 daily. Medical Branch spironolact 2019-11 Yes [id number] 12.5mg Take 0.5 [facility] one 25 mg 1-19 tablets by ity of tablet 00:00: mouth [place] 00 daily. Medical Branch digoxin 125 2019-11 Yes [id number] .125mg Take 1 [facility] mcg tablet 1-19 tablet by ity of 00:00: mouth [place] 00 daily. Medical Branch losartan 25 2019-11 Yes [id number] 12.5mg Take 0.5 [facility] mg tablet 1-19 tablets by ity of 00:00: mouth [place] 00 daily. Medical Branch spironolact 2019-11 Yes [id number] 12.5mg Take 0.5 [facility] one 25 mg 1-19 tablets by ity of tablet 00:00: mouth [place] 00 daily. Medical Branch digoxin 125 2019-11 Yes [id number] .125mg Take 1 [facility] mcg tablet 1-19 tablet by ity of 00:00: mouth [place] 00 daily. Medical Branch losartan 25 2019-11 Yes [id number] 12.5mg Take 0.5 [facility] mg tablet 1-19 tablets by ity of 00:00: mouth [place] 00 daily. Medical Branch spironolact 2019-11 Yes [id number] 12.5mg Take 0.5 [facility] one 25 mg 1-19 tablets by ity of tablet 00:00: mouth [place] 00 daily. Medical Branch digoxin 125 2019-11 Yes [id number] .125mg Take 1 [facility] mcg tablet 1-19 tablet by ity of 00:00: mouth [place] 00 daily. Medical Branch losartan 25 2019-11 Yes [id number] 12.5mg Take 0.5 [facility] mg tablet 1-19 tablets by ity of 00:00: mouth [place] 00 daily. Medical Branch spironolact 2019-11 Yes [id number] 12.5mg Take 0.5 [facility] one 25 mg 1-19 tablets by ity of tablet 00:00: mouth [place] 00 daily. Medical Branch digoxin 125 2019-11 Yes [id number] .125mg Take 1 [facility] mcg tablet 1-19 tablet by ity of 00:00: mouth [place] 00 daily. Medical Branch losartan 25 2019-11 Yes [id number] 12.5mg Take 0.5 [facility] mg tablet 1-19 tablets by ity of 00:00: mouth [place] 00 daily. Medical Branch spironolact 2019-11 Yes [id number] 12.5mg Take 0.5 [facility] one 25 mg 1-19 tablets by ity of tablet 00:00: mouth [place] 00 daily. Medical Branch digoxin 125 2019-11 Yes [id number] .125mg Take 1 [facility] mcg tablet 1-19 tablet by ity of 00:00: mouth [place] 00 daily. Medical Branch losartan 25 2019-11 Yes [id number] 12.5mg Take 0.5 [facility] mg tablet 1-19 tablets by ity of 00:00: mouth [place] 00 daily. Medical Branch spironolact 2019-11 Yes [id number] 12.5mg Take 0.5 [facility] one 25 mg 1-19 tablets by ity of tablet 00:00: mouth [place] 00 daily. Medical Branch digoxin 125 2019-11 Yes [id number] .125mg Take 1 [facility] mcg tablet 1-19 tablet by ity of 00:00: mouth [place] 00 daily. Medical Branch losartan 25 2019-11 Yes [id number] 12.5mg Take 0.5 [facility] mg tablet 1-19 tablets by ity of 00:00: mouth [place] 00 daily. Medical Branch spironolact 2019-11 Yes [id number] 12.5mg Take 0.5 [facility] one 25 mg 1-19 tablets by ity of tablet 00:00: mouth [place] 00 daily. Medical Branch digoxin 125 2019-11- No [id number] .125mg Take 1 [facility] mcg tablet 12-04 tablet by ity of 00:00: 00:00 mouth [place] 00 :00 daily. Medical Branch losartan 25 2019-11- No [id number] 12.5mg Take 0.5 [facility] mg tablet -12-13 tablets by ity of 00:00: 00:00 mouth [place] 00 :00 daily. Medical Branch spironolact 2019-11- No [id number] 12.5mg Take 0.5 [facility] one 25 mg 1-12-13 tablets by ity of tablet 00:00: 00:00 mouth [place] 00 :00 daily. Medical Branch digoxin 125 2019-11- No [id number] .125mg Take 1 [facility] mcg tablet 12-04 tablet by ity of 00:00: 00:00 mouth [place] 00 :00 daily. Medical Branch losartan 25 2019-11- No [id number] 12.5mg Take 0.5 [facility] mg tablet 12-04 tablets by ity of 00:00: 00:00 mouth [place] 00 :00 daily. Medical Branch spironolact 2019-11- No [id number] 12.5mg Take 0.5 [facility] one 25 mg 12-04 tablets by ity of tablet 00:00: 00:00 mouth [place] 00 :00 daily. Medical Branch digoxin 125 2019-11- No [id number] .125mg Take 1 [facility] mcg tablet 12-04 tablet by ity of 00:00: 00:00 mouth [place] 00 :00 daily. Medical Branch losartan 25 2019-11- No [id number] 12.5mg Take 0.5 [facility] mg tablet 12-04 tablets by ity of 00:00: 00:00 mouth [place] 00 :00 daily. Medical Branch spironolact 2019-11- No [id number] 12.5mg Take 0.5 [facility] one 25 mg 12-04 tablets by ity of tablet 00:00: 00:00 mouth [place] 00 :00 daily. Medical Branch digoxin 125 2019-11- No [id number] .125mg Take 1 [facility] mcg tablet 12-04 tablet by ity of 00:00: 00:00 mouth [place] 00 :00 daily for Medical 90 days. Branch spironolact 2019-11- No [id number] 12.5mg Take 0.5 [facility] one 25 mg 12-04 tablets by ity of tablet 00:00: 00:00 mouth [place] 00 :00 daily for Medical 90 days. Branch losartan 25 2019-11- No [id number] 12.5mg Take 0.5 [facility] mg tablet 12-04 tablets by ity of 00:00: 00:00 mouth [place] 00 :00 daily for Medical 90 days. Branch Sliding 2019-11 Yes Subcutaneo Univ ers Scale 1-18 us, TIDAC, ity of Insulin - 20:00: First dose [place] Lispro 00 (after Medical (HumaLOG) + last Branch Fsbg modificati Testing on) on Thu10/03/20 at 1400, Until Discontinu ed, Routine insulin 2019-11 2020- No 5U 5 Units, Unive rs lispro 1-18 10-03 Subcutaneo ity of (human) 18:45: 17:45 [place], ONCE, [place] (HumaLOG 00 :00 1 dose, Medical U-100) [facility] Branch injection 5 10/03/20 Units at 1245, Routine KCL 2019-11 2020- No 20meq 20 mEq, Univers (KLOR-CON -18 -18 Oral, ity of M20) tablet 18:15: 17:47 ONCE, 1 [place] 20 mEq 00 :00 dose, [facility] Medical 10/03/20 Branch at 1215, Routine KCL [...] [place] (KCL) 20 00 :00 dose, [facility] Medica l mEq/100 mL 10/03/20 Branc h 20 mEq at 0730 piggyback apixaban 5 2019-11 Yes [id number] 5mg Take 1 Unive rs mg tablet 1-18 tablet by ity o f 00:00: mouth 2 [place] 00 (two) Medical times Branch daily. Indication s: prevention of thromboemb olism in paroxysmal atrial fibrillati on aspirin 81 2019-11 Yes [id number] 81mg Take 1 U nivers mg chewable 1-18 tablet by ity of tablet 00:00: mouth [place] 00 daily. Medical Branch atorvastati 2019-11 Yes [id number] 40mg Take 1 [facility] n 40 mg 1-18 tablet by ity of tablet 00:00: mouth at [place] 00 bedtime. Medical Branch furosemide 2019-11 Yes [id number] 80mg Take 2 U nivers 40 mg 1-18 tablets by ity of tablet 00:00: mouth [place] 00 every Medical morning Branch and evening. metoprolol 2019-11 Yes [id number] 75mg Take 1.5 [facility] succinate 1-18 tablets by ity of XL 50 mg 24 00:00: mouth 2 [place] hr tablet 00 (two) Medical times Branch daily. nitroglycer 2019-[id number] 1 [facility] in 0.4 mg [...] atrial fibrillati on aspirin 81 2019-11 Yes [id number] 81mg Take 1 [facility] nivers mg chewable 1-18 tablet by ity of tablet 00:00: mouth [place] 00 daily. Medical Branch atorvastati 2019-11 Yes [id number] 40mg Take 1 [facility] n 40 mg 1-18 tablet by ity of tablet 00:00: mouth at [place] 00 bedtime. Medical Branch furosemide 2019-11 Yes [id number] 80mg Take 2 [facility] nivers 40 mg 1-18 tablets by ity of tablet 00:00: mouth [place] 00 every Medical morning Branch and evening. metoprolol 2019-11 Yes [id number] 75mg Take 1.5 [facility] succinate 1-18 tablets by ity of XL 50 mg 24 00:00: mouth 2 [place] hr tablet 00 (two) Medical times Branch daily. nitroglycer 2019-[id number] 1 [facility] in 0.4 mg [...] atrial fibrillati on aspirin 81 2019-11 Yes [id number] 81mg Take 1 [facility] nivers mg chewable 1-18 tablet by ity of tablet 00:00: mouth [place] 00 daily. Medical Branch atorvastati 2019-11 Yes [id number] 40mg Take 1 [facility] n 40 mg 1-18 tablet by ity of tablet 00:00: mouth at [place] 00 bedtime. Medical Branch furosemide 2019-11 Yes [id number] 80mg Take 2 [facility] nivers 40 mg 1-18 tablets by ity of tablet 00:00: mouth [place] 00 every Medical morning Branch and evening. metoprolol 2019-11 Yes [id number] 75mg Take 1.5 [facility] succinate 1-18 tablets by ity of XL 50 mg 24 00:00: mouth 2 [place] hr tablet 00 (two) Medical times Branch daily. nitroglycer 2019-[id number] 1 [facility] in 0.4 mg [...] atrial fibrillati on aspirin 81 2019-11 Yes [id number] 81mg Take 1 U nivers mg chewable 1-18 tablet by ity of tablet 00:00: mouth [place] 00 daily. Medical Branch atorvastati 2019-11 Yes [id number] 40mg Take 1 [facility] n 40 mg 1-18 tablet by ity of tablet 00:00: mouth at [place] 00 bedtime. Medical Branch furosemide 2019-11 Yes [id number] 80mg Take 2 U nivers 40 mg 1-18 tablets by ity of tablet 00:00: mouth [place] 00 every Medical morning Branch and evening. nitroglycer 2019-[id number] 1 [facility] in 0.4 mg [...] atrial fibrillati on aspirin 81 2019-11 Yes [id number] 81mg Take 1 U nivers mg chewable 1-18 tablet by ity of tablet 00:00: mouth [place] 00 daily. Medical Branch atorvastati 2019-11 Yes [id number] 40mg Take 1 [facility] n 40 mg 1-18 tablet by ity of tablet 00:00: mouth at [place] 00 bedtime. Medical Branch furosemide 2019-11 Yes [id number] 80mg Take 2 U nivers 40 mg 1-18 tablets by ity of tablet 00:00: mouth [place] 00 every Medical morning Branch and evening. nitroglycer 2019-[id number] 1 [facility] in 0.4 mg [...] atrial fibrillati on aspirin 81 2019-11 Yes [id number] 81mg Take 1 U nivers mg chewable 1-18 tablet by ity of tablet 00:00: mouth [place] 00 daily. Medical Branch atorvastati 2019-11 Yes [id number] 40mg Take 1 [facility] n 40 mg 1-18 tablet by ity of tablet 00:00: mouth at [place] 00 bedtime. Medical Branch furosemide 2019-11 Yes [id number] 80mg Take 2 U nivers 40 mg 1-18 tablets by ity of tablet 00:00: mouth [place] 00 every Medical morning Branch and evening. nitroglycer 2019-[id number] 1 Univers in 0.4 mg [...] atrial fibrillati on aspirin 81 2019-11 Yes [id number] 81mg Take 1 U nivers mg chewable 1-18 tablet by ity of tablet 00:00: mouth [place] 00 daily. Medical Branch atorvastati 2019-11 Yes [id number] 40mg Take 1 [facility] n 40 mg 1-18 tablet by ity of tablet 00:00: mouth at [place] 00 bedtime. Medical Branch furosemide 2019-11 Yes [id number] 80mg Take 2 U nivers 40 mg 1-18 tablets by ity of tablet 00:00: mouth [place] 00 every Medical morning Branch and evening. nitroglycer 2019-[id number] 1 [facility] in 0.4 mg [...] paroxysmal atrial fibrillati on nitroglycer 2019-[id number] 1 [facility] in 0.4 mg [...] paroxysmal atrial fibrillati on nitroglycer 2019-[id number] 1 [facility] in 0.4 mg [...] paroxysmal atrial fibrillati on nitroglycer 2019-[id number] 1 [facility] in 0.4 mg [...] paroxysmal atrial fibrillati on nitroglycer 2019-[id number] 1 [facility] in 0.4 mg 1-18 tablet ity of sublingual 00:00: under the [place] tablet 00 tongue Medical every 5 Branch (five) minutes as needed for Chest pain. apixaban 5 2020-1 Yes [id number] 5mg Take 1 Unive rs mg tablet 1-18 tablet by ity o f 00:00: mouth 2 [place] (two) Medical times Branch daily. Indication s: prevention of thromboemb olism in paroxysmal atrial fibrillati on nitroglycer 2019-[id number] 1 [facility] in 0.4 mg [...] atrial fibrillati on aspirin 81 2019-11 Yes [id number] 81mg Take 1 U nivers mg chewable 1-18 tablet by ity of tablet 00:00: mouth [place] 00 daily. Medical Branch apixaban 2019-11 Yes [id number] 5mg Take 1 Unive rs mg tablet 1-18 tablet by ity o f 00:00: mouth 2 [place] (two) Medical times Branch daily. Indication s: prevention of thromboemb olism in paroxysmal atrial fibrillati on nitroglycer 2019-[id number] 1 [facility] in 0.4 mg 1-18 tablet ity of sublingual 00:00: under the [place] tablet 00 tongue Medical every 5 Branch (five) minutes as needed for Chest pain. atorvastati 2019-11 Yes [id number] 40mg Take 1 [facility] n 40 mg 1-18 tablet by ity of tablet 00:00: mouth at [place] 00 bedtime. Medical Branch apixaban 2019-11 Yes [id number] 5mg Take 1 Unive rs mg tablet 1-18 tablet by ity o f 00:00: mouth 2 [place] 00 (two) Medical times Branch daily. Indication s: prevention of thromboemb olism in paroxysmal atrial fibrillati on nitroglycer 2019-[id number] 1 [facility] in 0.4 mg [...] paroxysmal atrial fibrillati on furosemide 2019-11 Yes [id number] 80mg Take 2 U nivers 40 mg 1-18 tablets by ity of tablet 00:00: mouth [place] 00 every Medical morning Branch and evening. nitroglycer 2019-[id number] 1 [facility] in 0.4 mg [...] paroxysmal atrial fibrillati on nitroglycer 2019-[id number] 1 [facility] in 0.4 mg 1-18 tablet ity of sublingual 00:00: under the [place] tablet 00 tongue Medical every 5 Branch (five) minutes as needed for Chest pain. metoprolol 2019-11 Yes [id number] 75mg Take 1.5 [facility] succinate 1-18 tablets [...] paroxysmal atrial fibrillati on nitroglycer 2019-[id number] 1 [facility] in 0.4 mg 1-18 tablet ity of sublingual 00:00: under the [place] tablet 00 tongue Medical every 5 Branch (five) minutes as needed for Chest pain. nitroglycer 2019-[id number] 1 [facility] in 0.4 mg [...] paroxysmal atrial fibrillati on nitroglycer 2019-[id number] 1 [facility] in 0.4 mg 1-18 tablet ity of sublingual 00:00: under the [place] tablet 00 tongue Medical every 5 Branch (five) minutes as needed for Chest pain. aspirin 81 2019-11- No [id number] 81mg Take 1 [facility] mg chewable -18 12-13 tablet by it y of tablet 00:00: 00:00 mouth [place] 00 :00 daily. Medical Branch atorvastati 2019-11- No [id number] 40mg Take 1 [facility] n 40 mg -18 12-13 tablet by ity of tablet 00:00: 00:00 mouth at [place] 00 :00 bedtime. Medical Branch furosemide 2019-11- No [id number] 80mg Take 2 [facility] 40 mg -18 12-13 tablets by ity of tablet 00:00: 00:00 mouth [place] 00 :00 every Medical morning Branch and evening. aspirin 81 2019-11- No [id number] 81mg Take 1 [facility] mg chewable 12-03 tablet by it y of tablet 00:00: 00:00 mouth [place] 00 :00 daily. Medical Branch atorvastati 2019-11- No [id number] 40mg Take 1 [facility] n 40 mg -12-13 tablet by ity of tablet 00:00: 00:00 mouth at [place] 00 :00 bedtime. Medical Branch furosemide 2019-11- No [id number] 80mg Take 2 [facility] 40 mg -18 12-13 tablets by ity of tablet 00:00: 00:00 mouth [place] 00 :00 every Medical morning Branch and evening. aspirin 81 2019-11- No [id number] 81mg Take 1 [facility] mg chewable 12-03 tablet by it y of tablet 00:00: 00:00 mouth [place] 00 :00 daily. Medical Branch atorvastati 2019-11- No [id number] 40mg Take 1 [facility] n 40 mg -18 12-13 tablet by ity of tablet 00:00: 00:00 mouth at [place] 00 :00 bedtime. Medical Branch furosemide 2019-11- No [id number] 80mg Take 2 [facility] 40 mg -18 01-28 tablets by ity of tablet 00:00: 00:00 mouth [place] 00 :00 every Medical morning Branch and evening. metoprolol 2019-11- No [id number] 75mg Take 1.5 [facility] succinate -18 -25 tablets by ity of XL 50 mg 24 00:00: 00:00 mouth 2 [place] hr tablet 00 :00 (two) Medical times Branch daily. metoprolol 2019-11- No [id number] 75mg Take 1.5 [facility] succinate -18 -25 tablets by ity of XL 50 mg [...] atrial fibrillati on aspirin 81 2019-11- No [id number] 81mg Take 1 [facility] mg chewable -10-03 tablet by it y of tablet 00:00: 00:00 mouth [place] 00 :00 daily for Medical 90 days. Branch atorvastati 2019-11- No [id number] 40mg Take 1 [facility] n 40 mg -03 10- tablet by ity of tablet 00:00: 00:00 mouth at [place] 00 :00 bedtime Medical for 90 Branch days. furosemide 2019-11- No [id number] 80mg Take 1 [facility] 80 mg -03 10-18 tablet by ity of tablet 00:00: 00:00 mouth [place] 00 :00 every Medical morning Branch and evening for 90 days. metoprolol 2019-11- No [id number] 75mg Take 3 [facility] succinate -03 10-18 tablets by ity of XL 25 mg 24 00:00: 00:00 mouth 2 [place] hr tablet 00 :00 (two) Medical times Branch daily for 90 days. nitroglycer 2019-11- No [id number] .4mg Place 1 [facility] in 0.4 mg -18 - tablet ity of sublingual 00:00: 00:00 under [...] ty of human 70-30 15:30: 19:16 , [place] (HUMULIN 00 :39 QAM+PM, Medical 70-30 U-100 First dose Br anch INSULIN) (after 100 unit/mL last (70-30) modificati injection on) on Thu 40 Units 10/02/20 at 0930, Until Discontinu ed, Routine furosemide 2019-11 Yes 80mg 80 mg, Unive rs (LASIX) 12-02 Oral, ity of tablet 80 15:00: QAM+PM, [place] mg 00 First dose Medical on Thu10/02/20 at 0900, Until Discontinu ed, Routine spironolact 2019-11- No 12.5mg 12.5 mg, Univers one 12-02 Oral, ity of (ALDACTONE) 15:00: 14:16 DAILY, [place] half tablet 00 :21 First dose Me dical 12.5 mg on Thu10/02/20 at 0900, Until Discontinu ed, Routine furosemide 2019-11- No 80mg 80 mg, IV U nivers (LASIX) 12-01 Push, TID, ity o f injection 20:00: 14:59 First dose [place] 80 mg 00 :44 (after Medical last Branch modificati on) on Thu10/01/20 at 1400, Until Discontinu ed, [place] tc 2019-11- No 35mCi 35 Univers 99m-tetrofo 12-01 millicurie i ty of smin 19:15: 19:05 , [place] (MYOVIEW) 00 :00 Intravenou Medi trinh injection s, ONCE, 1 Bran ch 35 dose, Mon millicurie 10/01/20 at 1315, Routine insulin NPH 2019-11- No 40U 40 Units, Univers and regular 12-01 Subcutaneo i ty of human 70-30 15:00: 15:21 , [place] (HUMULIN 00 :14 QAM+PM, Medical 70-30 U-100 First dose Br anch INSULIN) on [facility] 100 unit/mL 10/01/20 (70-30) at 0900, injection Until 40 Units Discontinu ed, Routine KCL 2019-11 2020- No 20meq 20 mEq, Univers (KLOR-CON 12-01 Oral, ity of M20) tablet 14:15: 13:43 ONCE, 1 [place] 20 mEq 00 :00 dose, Mon Medical 10/01/20 Branch at 0815, Routine magnesium 2019-11- No 2g 2 g, IV Univ ers sulfate in 12-01 Piggyback, it y of water 2 14:00: 13:42 ONCE, 1 [place] gram/50 mL 00 :00 dose, [facility] Medi trinh (4 %) 10/01/20 Branch infusion [...] e microsphr 18:30: 16:00 s, ONCE, 1 [place] (LUMASON) 00 :00 dose, [place] Medic al injection 5 09/30/20 Bran ch mL at 1230, Routine
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 approving Restricted medication : SHANITA EH, TAREQ digoxin 2019-11 Yes 125ug 125 mcg, Unive rs (LANOXIN) 11-30 Oral, ity of tablet 125 15:45: DAILY, [place] mcg 00 First dose Medical on [place] Branch 09/30/20 at 0945, Until Discontinu ed, Routine metoprolol 2019-11 2020- No 25mg 25 mg, Univ ers succinate 11-30 Oral, ity of XL (TOPROL 15:28: 15:46 ONCE, 1 [place] as XL) tablet 00 :00 dose, Sun Medi trinh 25 mg 09/30/20 Branch at 0930, Routine Polyethylen 2019-11- No 17g 17 g, [facility] ers e Glycol 11-30 Oral, BID, ity of 3350 14:15: 20:22 First dose [place] (MIRALAX) 00 :36 on Sun Medical powder 17 g 09/30/20 Bran ch at 0815, Until Discontinu ed, Routine insulin 2019-11- No 16U 16 Units, [facility] ers glargine 11-30 Subcutaneo ity of (LANTUS 03:00: 14:16 us, QHS, [place] U-100) 00 :00 First dose Medical injection on [facility] Branch 16 Units 09/29/20 at 2100, Until Discontinu ed, Routine apixaban 2019-11 Yes 5mg 5 mg, Univers (ELIQUIS) 11-30 Oral, BID, ity of tablet 5 mg 02:00: First dose [place] 00 on [facility] Medical 09/29/20 Branch at 2000, Until Discontinu ed, Routine furosemide 2019-11- No 80mg 80 mg, IV U nivers (LASIX) 11-30 Push, ity of injection 02:00: 17:11 Q12H, [place] 80 mg 00 :54 First dose Medical (after Branch last modificati on) on [facility] 09/29/20 at 2000, Until Discontinu ed, ANTON metoprolol 2019-11- No 50mg 50 mg, [facility] ers succinate 11-30 Oral, BID, ity of XL (TOPROL 02:00: 15:28 First dose [place] XL) tablet 00 :45 (after Medical 50 mg last Branch modificati on) on 09/29/20 at 2000, Until Discontinu ed, Routine insulin 2019-11- No 4U 4 [facility] 11-29 Subcutaneo ity of (human) 23:00: 14:16 us, TID [place] (HumaLOG 00 :00 MEALS, Medical U-100) First dose Branch injection 4 on [facility] Units 09/29/20 at 1700, Until Discontinu ed, Routine Sliding 2019-11- No Subcutaneo Uni vers Scale -10-02 us, Q4H, ity of Insulin - 22:30: 14:18 First [place] Lispro 00 :31 on Sat Medical (HumaLOG) + 09/29/20 Bran Fsbg at 1630, Testing Until Discontinu ed, Routine metoprolol 2019-11- No 12.5mg 12.5 mg, Univers succinate 11-29 Oral, ity of XL (TOPROL 17:04: 19:00 ONCE, 1 [place] as XL) tablet 00 :00 dose, Sat Medi rtinh 12.5 mg 09/29/20 Branch at 1115, Routine [...] s mg 00 First dose Medical on Sat Branch 09/29/20 at 0900, Until Discontinu ed, Routine Sliding 2019-11 No Subcutaneo Uni vers Scale 11-29 us, TID ity of Insulin - 14:00: 22:24 MEALS+HS, [place] Lispro 00 :01 First dose Medical (HumaLOG) + (after Branch Fsbg last Testing modificati on) on 09/29/20 at 0800, Until Discontinu ed, Routine metoprolol 2019-11- No 37.5mg 37.5 mg, Univers succinate 11-29 Oral, BID, ity of XL (TOPROL 14:00: 17:04 First dose [place] XL) tablet 00 :42 (after Medical 37.5 mg last Branch modificati on) on 09/29/20 at 0800, Until Discontinu ed, Routine heparin STD 2019-11- No 1000U/h 1,000 U nivers 25,000 11-29 Units/hr ity of units/250ml 13:33: 17:07 (10 [...] Rang e, Dosing and Testing: &nbs p;FOR [place], [facility], AND [facility] ONLY &nbs p; - aPTT < 35: [...] INITIAL BOLUS OR INITIAL INFUSION RATE.
KCL 2019-11- No 20meq 20 mEq, Univers (KLOR-CON 11-29- Oral, ity of M20) tablet 12:00: 11:35 ONCE, 1 [place] 20 mEq 00 :00 dose, Sat Medical 09/29/20 Branch at 0600, Routine acetaminoph 2019-11 Yes 325mg 325 mg, Un win en 11-29 Oral, ity of (TYLENOL) 00:30: Q6HP, [place] tablet 325 33 Starting Medic al mg Fri Branch 09/28/20 at 1830, Until Discontinu ed, Routine, headache heparin 2019-11- No Slow IV Univer s 1,000 11-28 Push, ity of unit/mL 18:32: 18:32 TITRATE - [place] injection 00 :00 FOR Medical PROCEDURE Branch USE, 1 dose, Starting 09/28/20 at 1232, Until 09/28/20 at 1232, Routine nitroglycer 2019-11- No Intravenou Univers in (TRIDIL) 1-13 11-13 s, TITRATE i ty of 2 mg in 10 18:32: 18:32 - FOR [place] mL D5W for 00 :00 PROCEDURE Medi trinh Cardiac USE, 1 Branch Cath dose, Starting Thu09/28/20 at 1232, Until Thu09/28/20 at 1232, Routine midazolam 2019-11- No IV Push, Uni vers (VERSED) 11-28 TITRATE - ity o f injection 18:31: 18:31 FOR [place] 00 :00 PROCEDURE Medical USE, 1 Branch dose, Starting Thu09/28/20 at 1231, Until Thu09/28/20 at 1231, Routine FENTanyl PF 2019-11- No Slow IV Un win (SUBLIMAZE 11-28 Push, ity of (PF)) 18:28: 18:28 TITRATE - [place] injection 20 :20 FOR Medical PROCEDURE Branch USE, 1 dose, Starting Thu09/28/20 at 1228, Until Thu09/28/20 at 1228, Routine lidocaine 2019-11- No Infiltrati U nivers 1% (PF) 11-28 on, ity of (XYLOCAINE) 18:14: 18:14 TITRATE - [place] injection 00 :00 FOR Medical PROCEDURE Branch USE, 1 dose, Starting Thu09/28/20 at 1214, Until Thu09/28/20 at 1214, Routine FENTanyl PF 2019-11- No Slow IV Un win (SUBLIMAZE 11-28 Push, ity of (PF)) 18:00: 18:00 TITRATE - [place] injection 00 :00 FOR Medical PROCEDURE Branch USE, 1 dose, Starting Thu09/28/20 at 1200, Until Thu09/28/20 at 1200, Routine midazolam 2019-11- No IV Push, Uni vers (VERSED) 11-28 TITRATE - ity o f injection 18:00: 18:00 FOR [place] 00 :00 PROCEDURE Medical USE, 1 Branch dose, Starting Thu09/28/20 at 1200, Until Thu09/28/20 at 1200, Routine metoprolol 2019-11- No 25mg 25 mg, Univ ers succinate 11-28 Oral, BID, ity of XL (TOPROL 15:15: 13:32 First dose [place] XL) tablet 00 :40 on Fri Medical 25 mg 09/28/20 Branch at 0915, Until Discontinu ed, Routine aspirin 2019-11 Yes 81mg 81 mg, Univers chewable 11-28 Oral, ity of tablet 81 15:00: DAILY, [place] mg 00 First dose Medical on Thu Branch 09/28/20 at 0900, Until Discontinu ed, Routine pantoprazol 2019-11 Yes 40mg 40 mg, Univ ers e 13 Oral, ity of (PROTONIX) 15:00: DAILY, [place] EC tablet 00 First dose Medi trinh 40 mg on Thu Branch 09/28/20 at 0900, Until Discontinu ed, Routine atorvastati 2019-11 Yes 40mg 40 mg, Univ ers n (LIPITOR) 13 Oral, QHS, it y of tablet 40 [...] Until Discontinu ed, Routine, Chest pain furosemide 2019-11- No 40mg 40 mg, IV U nivers (LASIX) 11-28 Push, ity of injection 08:00: 15:41 Q12H, [place] 40 mg 00 :59 First dose Medical (after Branch last reorder) on Thu09/28/20 at 0200, Until Discontinu ed, ANTON Sliding 2019-11- No Subcutaneo Uni vers Scale 11-28 us, Q6H ity of Insulin - 06:00: 13:30 ABX, First [place] Lispro 00 :59 dose on Medical (HumaLOG) + Thu Branch Fsbg 09/28/20 Testing at 0000, Until Discontinu ed, Routine metoprolol 2019-11- No 25mg 25 mg, Univ ers tartrate 11-28 Oral, BID, ity of (LOPRESSOR) 05:00: 15:12 First dose [place] tablet 25 00 :41 on [facility] Medical mg 09/27/20 Branch at 2300, Until Discontinu ed, Routine heparin STD 2019-11- No 1000U/h 1,000 U nivers 25,000 1-13 11-14 Units/hr ity of units/250ml 04:46: 13:33 (10 [...] Rang e, Dosing and Testing: &nbs p;FOR [place], [facility], AND [facility] ONLY - aPTT < 35: & nbsp;Bolus [...] 03:38 ONCE, 1 [place] 00 :00 dose, [facility] Medical 09/27/20 Branch at 2215, Routine iohexol 2019-11- No 100mL 100 mL, Unive rs (OMNIPAQUE 11-27 Intravenou it y of 350 21:45: 21:45 s, ONCE, 1 [place] BULK-100 00 :00 dose, [facility] Medica l mL) 09/27/20 Branch injection at 1545, 100 mL Routine furosemide 2019-11- No 40mg 40 mg, IV U nivers (LASIX) 11-27 Push, ity of injection 21:45: 21:04 ONCE, 1 [place] 40 mg 00 :00 dose, [facility] [facility] 09/27/20 Branch at 1545, ANTON heparin 2019-11- No 1000U/h 1,000 Unive rs 25,000 11-27 11-13 Units/hr ity of Units/250 21:38: 04:46 (10 [place] mL 12 :34 mL/hr), IV Medical (Premixed Infusion, Branc h Bag) in TITRATE, 0.45 % NS Parameters in Admin. Instr., Starting [facility] 09/27/20 at 1538
CA UTION - If LMWH given in ER, AVOID bolus and start next dose/drip 12 hrs after ER dosage.&nb sp; M ust program rate using programmab le infusion pump.&nbsp ; Leticia ck with the ordering provider first prior to any administra tion should the patient be on existing/a dditional anticoagul ant therapy. Rang e, Dosing and Testing: &nbs p;FOR [place], [facility], AND [facility] ONLY - aPTT < 35: & nbsp;Bolus [...] INITIAL BOLUS OR INITIAL INFUSION RATE.
heparin 2019-11- No 4000U 4,000 Univers 1000 -12 11-12 Units, IV ity of unit/mL 20:45: 20:45 Push, [place] injection 00 :00 ONCE, 1 Medical Soln 4,000 dose, [place] Bran ch Units 09/27/20 at 1445, Routine amiodarone amiodarone No amiodarone [facility] 200 mg 200 mg 200 mg Family [...] route. route. Basaglar Basaglar No Basaglar Hilario diae KwBella Peguero Family U-100 U-100 U-100 Practic Insulin 100 [...] BD No BD [place] Ultra-Fine Ultra-Fine Ultra-Fine [facility] Short Pen Short Pen Short Pen Practic Needle 31 Needle 31 Needle 31 e gauge x gauge x gauge x /16" USE 16" USE 03/31" USE DIRECTED DIRECTED FIVE TIMES FIVE TIMES DIRECTED DAILY DAILY FIVE TIMES DAILY Eliquis 5 Eliquis 5 No Eliquis 5 [place] mg tablet mg tablet mg tablet Family Take 1 Take 1 Take 1 Practic tablet tablet tablet e twice a day twice a day twice a by oral by oral day by route. route. oral route. FreeStyle FreeStyle No FreeStyle [facility] Tobin 2 Tobin 2 Tobin 2 Family Sensor kit Sensor kit Sensor kit Practic USE USE USE e DIRECTED DIRECTED DIRECTED CHANGE CHANGE CHANGE EVERY 14 EVERY 14 EVERY 14 DAYS DAYS DAYS furosemide furosemide furosemide [facility] 80 mg 80 mg 80 mg Family tablet TAKE tablet TAKE tablet Practic 1 TABLET BY 1 TABLET BY TAKE 1 e MOUTH TWICE MOUTH TWICE TABLET BY DAILY DAILY MOUTH TWICE DAILY Jardiance Jardiance No 1 Q1D Jardiance [facility] 25 mg 25 mg 25 mg Family tablet Take tablet Take tablet Practic 1 tablet 1 tablet Take 1 e every day every day tablet by oral by oral every day route in route in by oral the morning the morning route in for 90 for 90 the days. days. morning for 90 days. levofloxaci levofloxaci No levofloxac [facility] n 250 mg n 250 mg in [...] MOUTH ONCE DAILY metoprolol metoprolol No metoprolol [facility] succinate succinate succinate Family Practic e Novolog [...] Ozempic 1 Ozempic 1 No Ozempic 1 [facility] mg/dose (4 mg/dose (4 mg/dose (4 Family mg/3 mL) mg/3 mL) mg/3 mL) Pra ctic subcutaneou subcutaneou subcutaneo e s pen s pen us pen injector injector injector INJECT 1MG INJECT 1MG INJECT 1MG SUBCUTANEOU SUBCUTANEOU SUBCUTANEO SLY ONCE A SLY ONCE A USLY ONCE WEEK WEEK A WEEK Ozempic 2 Ozempic 2 No 2mg Q1W Ozempic 2 [facility] mg/dose (8 mg/dose (8 mg/dose (8 Family [...] for 30 days. spironolact spironolact No spironolac [facility] one 25 mg one 25 mg tone 25 mg Family tablet Take tablet Take tablet Practic 1 tablet 1 tablet Take 1 e every day every day tablet by oral by oral every day route. route. by oral route. amiodarone amiodarone No amiodarone [facility] 200 mg 200 mg 200 mg Family tablet TAKE tablet TAKE tablet Practic 1 TABLET BY 1 TABLET BY TAKE 1 e MOUTH ONCE MOUTH ONCE TABLET BY DAILY DAILY MOUTH ONCE DAILY amoxicillin amoxicillin No amoxicilli [facility] [phone] [phone] Family mg-potassiu mg-potassiu mg-potassi Practic m m um e clavulanate clavulanate clavulanat 125 mg 125 mg e 125 mg tablet TAKE tablet TAKE tablet 1 TABLET BY 1 TABLET BY TAKE 1 MOUTH EVERY MOUTH EVERY TABLET BY 12 HOURS 12 HOURS MOUTH EVERY 12 HOURS aspirin 81 aspirin 81 No 1capsul Q1D aspirin 81 [place] mg capsule mg capsule e(s) mg capsule Family Take 1 Take 1 Take 1 Practic capsule capsule capsule e every day every day every day by oral by oral by oral route. route. route. Basaglar Basaglar No Basaglar Hilario VelazquezPen KwikPen KwjavedPen [facility] U-100 U-100 U-100 Practic Insulin 100 Insulin 100 Insulin e unit/mL (3 unit/mL (3 100 mL) mL) unit/mL (3 subcutaneou subcutaneou mL) s INJECT 48 s INJECT 48 subcutaneo UNITS UNITS us INJECT SUBCUTANEOU SUBCUTANEOU 48 UNITS SLY IN THE SLY IN THE SUBCUTANEO MORNING AND MORNING AND USLY IN INCREASE INCREASE THE DIRECTED TO DIRECTED TO MORNING A TOTAL A TOTAL AND DAILY DOSE DAILY DOSE INCREASE OF 50 UNITS OF 50 UNITS DIRECTED TO A TOTAL DAILY DOSE OF 50 UNITS BD Deb 2nd BD Deb 2nd No BD Deb [facility] Gen Pen Gen Pen 2nd Gen Family Needle 32 Needle 32 Pen Needle Practic gauge x gauge x 32 gauge x e " USE " USE " USE DIRECTED DIRECTED 4 TIMES 4 TIMES DIRECTED 4 DAILY DAILY TIMES DAILY BD BD No BD [facility] Ultra-Fine Ultra-Fine Ultra-Fine Family Mini Pen Mini Pen Mini Pen Pra ctic Needle 31 Needle 31 Needle 31 e gauge x gauge x gauge x 3/16" 316" 316" BD BD No [facility] Ultra-Fine Ultra-Fine Ultra-Fine Family Short Pen Short Pen Short Pen Practic Needle 31 Needle 31 Needle 31 e gauge x gauge x gauge x 03/31" USE 03/31" USE 03/31" USE DIRECTED DIRECTED FIVE TIMES FIVE TIMES DIRECTED DAILY DAILY FIVE TIMES DAILY clopidogrel clopidogrel No clopidogre [place] 75 mg 75 mg l 75 mg Family tablet TAKE tablet TAKE tablet Practic 1 TABLET BY 1 TABLET BY TAKE 1 e MOUTH ONCE MOUTH ONCE TABLET BY DAILY DAILY MOUTH ONCE DAILY Eliquis 5 Eliquis 5 No Eliquis [...] USE USE USE e DIRECTED DIRECTED DIRECTED BUT CHANGE BUT CHANGE BUT CHANGE EVERY 14 EVERY 14 EVERY 14 DAYS (PT DAYS (PT DAYS (PT NEEDS TO NEEDS TO NEEDS TO MAKE MAKE MAKE APPOINTMENT APPOINTMENT APPOINTMEN ) ) T) furosemide furosemide No furosemide [place] 40 mg 40 mg 40 mg Family tablet TAKE tablet TAKE tablet Practic 1 TABLET BY 1 TABLET BY TAKE 1 e MOUTH TWICE MOUTH TWICE TABLET BY DAILY DAILY MOUTH TWICE DAILY Jardiance Jardiance No Jardiance [place] 25 mg 25 mg 25 mg Family tablet TAKE tablet TAKE tablet Practic 1 TABLET BY 1 TABLET BY TAKE 1 e MOUTH ONCE MOUTH ONCE TABLET BY DAILY IN DAILY IN MOUTH ONCE THE MORNING THE MORNING DAILY IN FOR 90 DAYS FOR 90 DAYS THE MORNING FOR 90 DAYS losartan 25 losartan 25 No losartan [place] mg tablet mg tablet 25 mg Fami ly TAKE 1 TAKE 1 tablet Practic TABLET BY TABLET BY TAKE 1 e MOUTH ONCE MOUTH ONCE TABLET BY DAILY DAILY MOUTH ONCE DAILY metoprolol metoprolol No metoprolol [place] succinate succinate succinate Family ER 100 mg ER 100 mg ER 100 mg Practic tablet,exte tablet,exte tablet,ext e nded nded ended release 24 release 24 release 24 hr TAKE 1 hr TAKE 1 hr TAKE 1 TABLET BY TABLET BY TABLET BY MOUTH ONCE MOUTH ONCE MOUTH ONCE DAILY DAILY DAILY metoprolol metoprolol No metoprolol [place] succinate succinate succinate Family ER 50 mg ER 50 mg ER 50 mg Pra ctic tablet,exte tablet,exte tablet,ext e nded nded ended release 24 release 24 release 24 hr TAKE 1 hr TAKE 1 hr TAKE 1 TABLET BY TABLET BY TABLET BY MOUTH ONCE MOUTH ONCE MOUTH ONCE DAILY DAILY DAILY Novolog Novolog No Novolog [place] FlexPen FlexPen FlexPen Family U-100 U-100 U-100 Practic Insulin Insulin Insulin e aspart 100 aspart 100 aspart 100 unit/mL (3 unit/mL (3 unit/mL (3 mL) mL) mL) subcutaneou subcutaneou subcutaneo s GIVE s GIVE us GIVE DIRECTED DIRECTED DIRECTED BEFORE BEFORE BEFORE MEALS FOR MEALS FOR MEALS FOR WHEN BLOOD WHEN BLOOD WHEN BLOOD GLUCOSE IS GLUCOSE IS GLUCOSE IS OVER 200 OVER 200 OVER 200 MAX DAILY MAX DAILY MAX DAILY DOSE OF 50 DOSE OF 50 DOSE OF 50 UNITS UNITS UNITS Ozempic 2 Ozempic 2 No Ozempic 2 [place] mg/dose (8 mg/dose (8 mg/dose (8 Family mg/3 mL) mg/3 mL) mg/3 mL) Pra ctic subcutaneou subcutaneou subcutaneo e s pen s pen us pen injector injector injector INJECT 2 MG INJECT 2 MG INJECT 2 SUBCUTANEOU SUBCUTANEOU MG SLY ONCE A SLY ONCE A SUBCUTANEO WEEK WEEK USLY ONCE A WEEK prednisolon prednisolon No prednisolo [place] e acetate 1 e acetate 1 ne acetate Family % eye % eye 1 % eye Practic drops,suspe drops,suspe drops,susp e nsion nsion ension INSTILL 1 INSTILL 1 INSTILL 1 DROP INTO DROP INTO DROP INTO RIGHT EYE 4 RIGHT EYE 4 RIGHT EYE TIMES DAILY TIMES DAILY 4 TIMES FOR 4 DAYS FOR 4 DAYS DAILY FOR - SHAKE THE - SHAKE THE 4 DAYS - BOTTLE WELL BOTTLE WELL SHAKE THE BEFORE EACH BEFORE EACH BOTTLE USE USE WELL BEFORE EACH USE spironolact spironolact No spironolac [place] one 25 mg one 25 mg tone 25 mg Family tablet Take tablet Take tablet Practic 1 tablet 1 tablet Take 1 e every day every day tablet by oral by oral every day route. route. by oral route. amiodarone amiodarone No amiodarone [place] 200 mg [...] route. route. Basaglar Basaglar No Basaglar Hilario Gamboa U-100 U-100 U-100 Practic Insulin 100 Insulin 100 Insulin e unit/mL (3 unit/mL (3 100 mL) mL) unit/mL (3 subcutaneou subcutaneou mL) s INJ 20 s INJ 20 subcutaneo UNITS IN UNITS IN us INJ 20 THE MORNING THE MORNING UNITS IN AND AND THE INCREASE INCREASE MORNING DIRECTED. DIRECTED. AND TDD40 TDD40 INCREASE DIRECTED. TDD40 BD Deb 2nd BD Deb 2nd No BD Deb [place] Gen Pen Gen Pen 2nd Gen Family Needle 32 Needle 32 Pen Needle Practic gauge x gauge x 32 gauge x e " USE " USE " USE DIRECTED DIRECTED 4 TIMES 4 TIMES DIRECTED 4 DAILY DAILY TIMES DAILY BD BD No [facility] Ultra-Fine Ultra-Fine Ultra-Fine [facility] Mini Pen Mini Pen Mini Pen Pra ctic Needle 31 Needle 31 Needle 31 e gauge x gauge x gauge x 3/16" 3/16" 3/16" BD BD No [facility] Ultra-Fine Ultra-Fine Ultra-Fine [facility] Short Pen Short Pen Short Pen Practic Needle 31 Needle 31 Needle 31 e gauge x gauge x gauge x 5/16" USE 16" USE 03/31" USE DIRECTED DIRECTED FIVE TIMES FIVE TIMES DIRECTED DAILY DAILY FIVE TIMES DAILY clopidogrel clopidogrel No clopidogre [facility] 75 mg 75 mg l 75 mg Family tablet TAKE tablet TAKE tablet Practic 1 TABLET BY 1 TABLET BY TAKE 1 e MOUTH ONCE MOUTH ONCE TABLET BY DAILY DAILY MOUTH ONCE DAILY Eliquis 5 Eliquis 5 No Eliquis 5 [place] mg tablet mg tablet mg tablet Family Take 1 Take 1 Take 1 Practic tablet tablet tablet e twice a day twice a day twice a by oral by oral day by route. route. oral route. ergocalcife ergocalcife No ergocalcif [facility] ruba yeh d[facility] (vitamin (vitamin (vitamin Pra ctic D2) 1,250 D2) 1,250 D2) 1,250 e mcg (50,000 mcg (50,000 mcg unit) unit) (50,000 capsule capsule unit) TAKE 1 TAKE 1 capsule CAPSULE BY CAPSULE BY TAKE 1 MOUTH ONCE MOUTH ONCE CAPSULE BY A WEEK A WEEK MOUTH ONCE A WEEK FreeStyle FreeStyle No FreeStyle [facility] Tobin 3 Tobin 3 Tobin 3 Family Sensor Sensor Sensor Practic device USE device USE device USE e DIRECTED DIRECTED DAILY BUT DAILY BUT DIRECTED CHANGE CHANGE DAILY BUT EVERY 14 EVERY 14 CHANGE DAYS DAYS EVERY 14 DAYS furosemide furosemide No furosemide [facility] 40 mg 40 mg 40 mg Family tablet TAKE tablet TAKE tablet Practic 1 TABLET BY 1 TABLET BY TAKE 1 e MOUTH ONCE MOUTH ONCE TABLET BY DAILY DAILY MOUTH ONCE DAILY ipratropium ipratropium No ipratropiu [facility] bromide 21 bromide 21 m bromide Family mcg (0.03 mcg (0.03 21 mcg Pra ctic %) nasal %) nasal (0.03 %) e spray spray nasal spray Jardiance Jardiance No 1 Q1D Jardiance [place] 25 mg 25 mg 25 mg Family tablet Take tablet Take tablet Practic 1 tablet 1 tablet Take 1 e every day every day tablet by oral by oral every day route in route in by oral the morning the morning route in for 90 for 90 the days. days. morning for 90 days. losartan 25 losartan 25 No losartan [place] mg tablet mg tablet 25 mg Fami ly TAKE 1/2 TAKE 1/2 tablet Pract ic (ONE-HALF) (ONE-HALF) TAKE 1/2 e TABLET BY TABLET BY (ONE-HALF) MOUTH ONCE MOUTH ONCE TABLET BY DAILY DAILY MOUTH ONCE DAILY metoprolol metoprolol No metoprolol [facility] succinate succinate succinate Family ER 100 mg ER 100 mg ER 100 mg Practic tablet,exte tablet,exte tablet,ext e nded nded ended release 24 release 24 release 24 hr TAKE 1 hr TAKE 1 hr TAKE 1 TABLET BY TABLET BY TABLET BY MOUTH ONCE MOUTH ONCE MOUTH ONCE DAILY DAILY DAILY metoprolol metoprolol No metoprolol [facility] succinate succinate succinate Family ER 50 mg ER 50 mg ER 50 mg Pra ctic tablet,exte tablet,exte tablet,ext e nded nded ended release 24 release 24 release 24 hr TAKE 1 hr TAKE 1 hr TAKE 1 TABLET BY TABLET BY TABLET BY MOUTH ONCE MOUTH ONCE MOUTH ONCE DAILY DAILY DAILY Novolog Novolog No Novolog [facility] [facility] FlexPen FlexPen FlexPen Family U-100 U-100 U-100 Practic Insulin Insulin [...] TDD 1:20: TDD 50 50 50 Ozempic 2 Ozempic 2 No 2mg Q1W [...] 30 days. 30 days. for 30 days. prednisolon prednisolon No prednisolo [place] e acetate 1 e acetate 1 ne acetate Family % eye % eye 1 % eye Practic drops,suspe drops,suspe drops,susp e nsion nsion ension INSTILL 1 INSTILL 1 INSTILL 1 DROP INTO DROP INTO DROP INTO RIGHT EYE RIGHT EYE RIGHT EYE THREE TIMES THREE TIMES THREE DAILY FOR 4 DAILY FOR 4 TIMES DAYS AFTER DAYS AFTER DAILY FOR LASER LASER 4 DAYS AFTER LASER spironolact spironolact No spironolac [place] one 25 mg one 25 mg tone 25 mg Family tablet Take tablet Take tablet Practic 1 tablet 1 tablet Take 1 e every day every day tablet by oral by oral every day route. route. by oral route. Immunizations Ordered Immunization Filled Immunization Date Status Commen ts Source Name Name COVID-19, mRNA, COVID-19, mRNA, 2022-06-06 Completed [facility] LNP-S, PF, 100 LNP-S, PF, 100 00:00:00 Practi ce mcg/0.5 mL dose mcg/0.5 mL dose (Moderna) (Moderna) COVID-19, mRNA, COVID-19, mRNA, 2022-06-06 Completed [facility] Family LNP-S, PF, 100 LNP-S, PF, 100 00:00:00 Practi ce mcg/0.5 mL dose mcg/0.5 mL dose (Moderna) (Moderna) [id number] 2021-02-13 Completed Ross ria [id number]<perez 00:00:00 Herm ada p>1</sup> COVID-19 COVID-19 2021-02-13 Completed [facility] Family (SARS-COV-2) (SARS-COV-2) 00:00:00 Practice vaccine, unspecified vaccine, unspecified COVID-19, mRNA, COVID-19, mRNA, 2021-02-13 Completed [facility] LNP-S, PF, 100 LNP-S, PF, 100 00:00:00 Practi ce mcg/0.5 mL dose mcg/0.5 mL dose (Moderna) - ML (Moderna) - ML COVID-19, mRNA, COVID-19, mRNA, 2021-02-13 Completed [facility] Family LNP-S, PF, 100 LNP-S, PF, 100 00:00:00 Practi ce mcg/0.5 mL dose mcg/0.5 mL dose (Moderna) - ML (Moderna) - ML COVID-19 COVID-19 2021-01-20 Completed [facility] Family (SARS-COV-2) (SARS-COV-2) 00:00:00 Practice vaccine, unspecified vaccine, unspecified COVID-19, mRNA, COVID-19, mRNA, 2021-01-19 Completed [facility] Family LNP-S, PF, 100 LNP-S, PF, 100 00:00:00 Practi ce mcg/0.5 mL dose mcg/0.5 mL dose (Moderna) - ML (Moderna) - ML COVID-19, mRNA, COVID-19, mRNA, 2021-01-19 Completed Vill age Family LNP-S, PF, 100 LNP-S, PF, 100 00:00:00 Practi ce mcg/0.5 mL dose mcg/0.5 mL dose (Moderna) - ML (Moderna) - ML Vital Signs Vital Name Observation Time Observation [...] 44.92 kg/m2 [facility] Diastolic 2023-04-20 00:00:00 92 mm[Hg] [facility] Height 2023-04-20 00:00:00 76 [in_i] [facility] BMI (Body Mass 2023-04-20 00:00:00 36.6 kg/m2 [facility]) Practice BP Systolic 2023-04-20 00:00:00 154 mm[Hg] [facility] Body Weight 2023-04-20 00:00:00 300.6 [lb_av] [facility] BP Diastolic 2023-01-13 00:00:00 73 mm[Hg] [facility] Height 2023-01-13 00:00:00 76 [in_i] [facility] BMI (Body Mass 2023-01-13 00:00:00 37.5 kg/m2 [facility]) Practice BP Systolic 2023-01-13 00:00:00 120 mm[Hg] [facility] Body Weight 2023-01-13 00:00:00 308 [lb_av] [facility] BP Diastolic 2022-07-25 00:00:00 82 mm[Hg] [facility] Height 2022-07-25 00:00:00 76 [in_i] [facility] BMI (Body Mass 2022-07-25 00:00:00 37.7 kg/m2 [facility] Family Index) Practice BP Systolic 2022-07-25 00:00:00 134 mm[Hg] [facility] Body Weight 2022-07-25 00:00:00 310 [lb_av] [facility] BP Diastolic 2022-01-17 00:00:00 86 mm[Hg] [facility] Height 2022-01-17 00:00:00 76 [in_i] [facility] BMI (Body Mass 2022-01-17 00:00:00 41.1 kg/m2 [facility] Family Index) Practice BP Systolic 2022-01-17 00:00:00 149 mm[Hg] [facility] Body Weight 2022-01-17 00:00:00 338 [lb_av] [facility] Systolic blood 2021-12-17 17:27:00 139 [...] h BP Diastolic 2021-06-18 00:00:00 64 mm[Hg] [facility] Height 2021-06-18 00:00:00 76 [in_i] [facility] BMI (Body Mass 2021-06-18 00:00:00 44.1 kg/m2 [facility] Family Index) Practice BP Systolic 2021-06-18 00:00:00 106 mm[Hg] [facility] Body Weight 2021-06-18 00:00:00 362.2 [lb_av] [facility] [facility] Systolic blood 2021-06-11 14:21:00 131 mm[Hg] [...] 44.92 [facility] blood 2021-01-09 20:45:00 132 mm[Hg] Univer sity of pressure [facility] Diastolic blood 2021-01-09 20:45:00 82 mm[Hg] Unive rsity of [facility] Heart rate 2021-01-09 20:45:00 78 /min [facility] Body temperature 2021-01-09 20:45:00 36.72 [place] [facility] ers[facility] Body height 2021-01-09 20:45:00 193 cm [facility] Body weight 2021-01-09 20:45:00 163.93 kg [facility] BMI 2021-01-09 20:45:00 43.99 kg/m2 [facility] Oxygen saturation in 2021-01-09 20:45:00 97 /min [facility] Arterial blood by [facility] Pulse oximetry Branch Systolic blood 2021-01-09 20:45:00 132 mm[Hg] Univer sity of pressure [facility] Diastolic blood 2021-01-09 20:45:00 82 mm[Hg] Unive rsity of [facility] Heart rate 2021-01-09 20:45:00 78 /min [facility] Body temperature 2021-01-09 20:45:00 36.72 [place] [facility] Body height 2021-01-09 20:45:00 193 cm [facility] Body weight 2021-01-09 20:45:00 163.93 kg [facility] BMI 2021-01-09 20:45:00 43.99 kg/m2 [facility] Oxygen saturation in 2021-01-09 20:45:00 97 /min [facility]ial blood by [facility] [place] [facility] Systolic blood 2020-12-13 21:25:00 128 mm[Hg] Univer sity of pressure [facility] Diastolic blood 2020-12-13 21:25:00 82 mm[Hg] Unive rsity of pressure [facility] Heart rate 2020-12-13 21:25:00 95 /min [facility] Body temperature 2020-12-13 21:25:00 36.78 [place] [facility] Body height 2020-12-13 21:25:00 193 cm [facility] Body weight 2020-12-13 21:25:00 165.518 kg [facility] BMI 2020-12-13 21:25:00 44.42 kg/m2 [facility] Oxygen saturation in 2020-12-13 21:25:00 96 /min [facility] Systolic blood 2020-10-10 21:52:00 117 mm[Hg] Univer sity of pressure [facility] Diastolic blood 2020-10-10 21:52:00 82 mm[Hg] Unive rsity of pressure [facility] Heart rate 2020-10-10 21:52:00 81 /min [facility] Body temperature 2020-10-10 21:52:00 36.39 [place] [facility] Respiratory rate 2020-10-10 21:52:00 18 /min Univ ersity of [facility] Body height 2020-10-10 21:52:00 193 cm [facility] Body weight 2020-10-10 21:52:00 159.802 kg Universi ty [facility] BMI 2020-10-10 21:52:00 42.88 kg/m2 Universi ty [facility] Oxygen saturation in 2020-10-10 21:52:00 98 /min University of Arterial blood by [facility] trinh Pulse oximetry Branch Systolic blood 2020-10-03 21:56:00 105 mm[Hg] [facility] Diastolic blood 2020-10-03 21:56:00 56 mm[Hg] Unive rsity of pressure [facility] Heart rate 2020-10-03 21:56:00 87 /min [facility] Body temperature 2020-10-03 21:56:00 37 [place] [facility] 2020-10-03 21:56:00 20 /min [facility] Oxygen saturation in 2020-10-03 21:56:00 96 /min University of Arterial blood by [facility] Pulse oximetry Branch Body weight 2020-10-03 01:52:00 156.31 kg Universi ty [facility] BMI 2020-10-03 01:52:00 41.95 kg/m2 [facility] Body height 2020-10-02 20:10:00 193 cm Universi [facility] Heart Rate 2021-12-27 18:23:00 [facility] Systolic (mm Hg) 2021-12-27 18:23:00 Ross [facility] [place] Diastolic (mm Hg) 2021-12-27 18:23:00 Mem orial Max Height 2021-12-27 18:23:00 193.04 cm [facility] Weight 2021-12-27 18:23:00 [facility] [place] BMI Calculated 2021-12-27 18:23:00 [facility] [place] Systolic (mm Hg) 2021-08-29 22:30:00 Ross rial Max Diastolic (mm Hg) 2021-08-29 22:30:00 Mem o[facility] [place] Height 2021-08-29 22:30:00 193.04 cm [facility] Weight 2021-08-29 22:30:00 [facility] [place] BMI Calculated 2021-08-29 22:30:00 [facility] [place] Heart Rate 2021-07-29 17:00:00 [facility] [place] Respitory Rate 2021-07-29 17:00:00 Memori al Max Systolic (mm Hg) 2021-07-29 17:00:00 Ross rial Max Diastolic (mm Hg) 2021-07-29 17:00:00 Mem orial [place] Heart Rate 2021-07-29 13:00:00 [facility] [place] Respitory Rate 2021-07-29 13:00:00 [facility] [place] Systolic (mm Hg) 2021-07-29 13:00:00 Ross rial Max Diastolic (mm Hg) 2021-07-29 13:00:00 Mem orial Max Temperature Oral (F) 2021-07-29 09:00:00 98.4 F [facility] Temperature Oral (F) 2021-07-29 05:00:00 97.4 F [facility] [place] Heart Rate 2021-07-29 05:00:00 [facility] Respitory Rate 2021-07-29 05:00:00 [facility] [place] Systolic (mm Hg) 2021-07-29 05:00:00 Ross rial Max Diastolic (mm Hg) 2021-07-29 05:00:00 Mem orial Max Temperature Oral (F) 2021-07-29 01:00:00 97.9 F [facility] Heart Rate 2021-07-29 01:00:00 [facility] [place] Respitory Rate 2021-07-29 01:00:00 [facility] [place] Systolic (mm Hg) 2021-07-29 01:00:00 Ross rial [place] Diastolic (mm Hg) 2021-07-29 01:00:00 Mem [facility] [place] Temperature Oral (F) 2021-07-28 20:55:00 97.9 F [facility] [place] Heart Rate 2021-07-28 20:55:00 [facility] [place] Respitory Rate 2021-07-28 20:55:00 Memori al Max Systolic (mm Hg) 2021-07-28 20:55:00 Ross rial Max Diastolic (mm Hg) 2021-07-28 20:55:00 Mem orial Max Height 2021-07-25 08:56:00 193.04 cm [facility] [place] Height 2021-07-25 04:45:00 193.04 cm [facility] [place] Height 2021-07-25 00:56:00 193.04 cm [facility] [place] Weight 2021-07-23 14:12:00 [facility] [place] BMI Calculated 2021-07-23 14:12:00 Memori al Max Systolic (mm Hg) 2021-06-05 19:30:00 Ross rial Max Diastolic (mm Hg) 2021-06-05 19:30:00 Mem orial [place] Respitory Rate 2021-06-05 19:30:00 Mem[facility] [place] Systolic (mm Hg) 2021-06-05 19:00:00 Ross rial Max Diastolic (mm Hg) 2021-06-05 19:00:00 Mem orial [place] Respitory Rate 2021-06-05 19:00:00 [facility] [place] Systolic (mm Hg) 2021-06-05 18:30:00 Ross rial Max Diastolic (mm Hg) 2021-06-05 18:30:00 Mem orial Max Respitory Rate 2021-06-05 18:30:00 [facility] [place] Heart Rate 2021-06-05 17:30:00 [facility] [place] Heart Rate 2021-06-05 17:25:00 [facility] [place] Heart Rate 2021-06-05 17:20:00 [facility] Height 2021-06-05 15:33:00 193.04 cm [facility] Weight 2021-06-05 15:33:00 [facility] [place] BMI Calculated 2021-06-05 15:33:00 Mem[facility] [place] Systolic (mm Hg) 2021-05-23 15:14:00 Ross rial [place] Diastolic (mm Hg) 2021-05-23 15:14:00 Mem orial [place] Heart Rate 2021-05-23 15:14:00 [facility] Height 2021-05-23 15:14:00 182.88 cm [facility] Weight 2021-05-23 15:14:00 [facility] [place] BMI Calculated 2021-05-23 15:14:00 [facility] [place] Systolic (mm Hg) 2021-04-18 17:15:00 Ross rial Max Diastolic (mm Hg) 2021-04-18 17:15:00 Mem o[facility] Max Systolic (mm Hg) 2021-04-18 17:00:00 Ross rial Max Diastolic (mm Hg) 2021-04-18 17:00:00 Mem [facility] [place] Systolic (mm Hg) 2021-04-18 16:45:00 Ross rial [place] Diastolic (mm Hg) 2021-04-18 16:45:00 Mem o[facility] [place] Respitory Rate 2021-04-18 16:30:00 Mem[facility] [place] Respitory Rate 2021-04-18 16:15:00 [facility] [place] Respitory Rate 2021-04-18 16:00:00 [facility] [place] Height 2021-04-18 12:47:00 152.4 cm [facility] [place] Weight 2021-04-18 12:47:00 [facility] BMI Calculated 2021-04-18 12:47:00 Memori al Max Systolic (mm Hg) 2021-03-22 16:01:00 Ross rial Max Diastolic (mm Hg) 2021-03-22 16:01:00 Mem orial Max Heart Rate 2021-03-22 16:01:00 [facility] [place] Height 2021-03-22 16:01:00 185.42 cm [facility] Weight 2021-03-22 16:01:00 [facility] [place] BMI Calculated 2021-03-22 16:01:00 [facility] [place] Procedures Procedure Date / Time Performing Clinician Source Performed ECG 12-LEAD 2023-03-02 16:21:26 Kj Lopez [facility] ECG 12-LEAD 2021-08-29 19:24:52 System[facility] 12-LEAD 2021-08-29 19:24:52 System, [facility] 12-LEAD 2021-08-08 00:00:00 Moi Estrada [facility] XR CHEST 2 VIEWS 2021-08-07 14:03:54 Moi Estrada [facility] XR CHEST 2 VIEWS 2021-08-07 14:03:54 Vishal Moi [facility] XR CHEST 2 VIEWS 2021-07-23 17:27:31 Moi Estrada [facility] XR CHEST 2 VIEWS 2021-07-23 17:27:31 Moi Estrada [facility] BREATHING CAPACITY TEST 2021-07-23 15:25:28 Mo[facility]strada [place] [facility] 12-LEAD 2021-07-16 00:00[facility] 2021-06-26 19:01:34 Moi Estrada [facility] BILATERAL US CAROTID DOPPLER 2021-06-26 19:01:34 Vishal [facility] BILATERAL CT CHEST WO CONTRAST 2021-06-26 18:26:52 Moi Estraad [facility] th CT CHEST WO CONTRAST 2021-06-26 18:26:52 Moi Estrada [place] US DUP-SCAN HEMO COMPL UNI 2021-06-21 14:56:36 Vishal [facility] US DUP-SCAN HEMO COMPL UNI 2021-06-21 14:56:36 Moi Estrada [facility] ECG 12-LEAD 2021-06-11 00:00:00 Vishal [facility] ECG 12-LEAD 2021-06-04 18:33:00 Mk Porter [facility] MRI CARDIAC MORPHOLOGY AND 2021-05-11 22:26:00 Jessica, [facility] FUNCTION W AND WO IV CONTRAST MRI CARDIAC MORPHOLOGY AND 2021-05-11 22:26:00 Jessica, Kj [facility] FUNCTION W AND WO IV CONTRAST DME/SUPPLY JUSTIFICATION 2021-04-25 05:01:00 Doctor Unassigned, [facility] DME/SUPPLY JUSTIFICATION 2021-04-10 05:01:00 Doctor Unassigned, [facility] ASSIGNMENT OF BENEFITS 2020-10-10 21:36:15 Doctor Unassigned, [facility] Name Medical Branch POCT GLUCOSE (AUTOMATED) 2020-10-03 22:51:00 [facility] POCT GLUCOSE (AUTOMATED) 2020-10-03 21:03:00 [facility] POCT GLUCOSE (AUTOMATED) 2020-10-03 20:02:00 [facility] POCT GLUCOSE (AUTOMATED) 2020-10-03 17:25:00 [facility] POCT GLUCOSE (AUTOMATED) 2020-10-03 13:40:00 [facility] MAGNESIUM 2020-10-03 11:08:00 Ashely [facility] BASIC METABOLIC PANEL (NA, 2020-10-03 11:08:00 [facility], CO2, GLUCOSE, BUN, Medica l Branch CREATININE, CA) N-TERMINAL PRO-BNP 2020-10-03 11:08:00 Penny [facility] POCT GLUCOSE (AUTOMATED) 2020-10-03 02:16:00 [facility] POCT GLUCOSE (AUTOMATED) 2020-10-03 00:28:00 [facility] TRANSESOPHAGEAL ECHO 2020-10-02 21:32:30 [facility] ([facility]OMATED) 2020-10-02 20:07:00 [facility] POCT GLUCOSE (AUTOMATED) 2020-10-02 16:10:00 [facility] POCT GLUCOSE (AUTOMATED) 2020-10-02 14:11:00 Jack [facility] MAGNESIUM 2020-10-02 11:34:00 Ashely [facility] BASIC METABOLIC PANEL (NA, 2020-10-02 11:34:00 Shira Lund [facility] K, CL, CO2, GLUCOSE, BUN, Medica l Branch CREATININE, CA) POCT GLUCOSE (AUTOMATED) 2020-10-02 10:34:00 [facility] POCT GLUCOSE (AUTOMATED) 2020-10-02 06:06:00 [facility] Echocardiogram<sup>1</sup> 2020-10-02 06:00:00 M heather Santana POCT GLUCOSE (AUTOMATED) 2020-10-02 02:19:00 [facility] POCT GLUCOSE (AUTOMATED) 2020-10-01 23:01:00 [facility] NM MYOCARDIAL VIABILITY 2020-10-01 21:55:48 Jack [facility] POCT GLUCOSE (AUTOMATED) 2020-10-01 16:26:00 Jack [facility] POCT GLUCOSE (AUTOMATED) 2020-10-01 13:39:00 Jack [facility] MAGNESIUM 2020-10-01 11:14:00 Ashely, [facility] BASIC METABOLIC PANEL (NA, 2020-10-01 11:14:00 Shira Lund [facility] K, CL, CO2, GLUCOSE, BUN, Medica l Branch CREATININE, CA) POCT GLUCOSE (AUTOMATED) 2020-10-01 10:38:00 Jack [facility] POCT GLUCOSE (AUTOMATED) 2020-10-01 05:48:00 Jack [facility] POCT GLUCOSE (AUTOMATED) 2020-10-01 01:14:00 Jack [facility] POCT GLUCOSE (AUTOMATED) 2020-09-30 22:43:00 Jack [facility] POCT GLUCOSE (AUTOMATED) 2020-09-30 18:40:00 Jack [facility] POCT GLUCOSE (AUTOMATED) 2020-09-30 15:22:00 [facility] ECHO ROUTINE W/DOPPLER 2020-09-30 15:07:37 Eva Limon [facility] COLOR [facility] MAGNESIUM 2020-09-30 10:50:00 Ashely [facility] BASIC METABOLIC PANEL (NA, 2020-09-30 10:50:00 Ashely, Shira [facility] K, CL, CO2, GLUCOSE, BUN, Medica l Branch CREATININE, CA) ACTIVATED PARTIAL THRMPLAS 2020-09-30 10:50:00 Huy Clay [facility] POCT GLUCOSE (AUTOMATED) 2020-09-30 10:46:00 Jack , [facility] POCT GLUCOSE (AUTOMATED) 2020-09-30 05:37:00 Jack , [facility] POCT GLUCOSE (AUTOMATED) 2020-09-30 03:06:00 Rosendo-Paola , [facility] POCT GLUCOSE (AUTOMATED) 2020-09-30 00:32:00 Rosendo-Paola , [facility] POCT GLUCOSE (AUTOMATED) 2020-09-29 21:52:00 Jack , [facility] POCT GLUCOSE (AUTOMATED) 2020-09-29 18:30:00 Jack , [facility] POCT GLUCOSE (AUTOMATED) 2020-09-29 14:48:00 RosendoPaola , [facility] POCT GLUCOSE (AUTOMATED) 2020-09-29 11:31:00 Jack , [facility] POCT GLUCOSE (AUTOMATED) 2020-09-29 07:37:00 Jack [facility] MAGNESIUM 2020-09-29 07:30:00 Ashely [facility] TROPONIN I 2020-09-29 07:30:00 Braxton [facility] BASIC METABOLIC PANEL (NA, 2020-09-29 07:30:00 Shira Lund [facility] K, CL, CO2, GLUCOSE, BUN, Medica l Branch CREATININE, CA) GLYCOSYLATED HEMOGLOBIN 2020-09-29 07:30:[address] [facility] (A1C) [facility] Branch ACTIVATED PARTIAL THRMPLAS 2020-09-29 07:30:00 Eva Limon [facility] POCT GLUCOSE (AUTOMATED) 2020-09-29 04:36:00 Jack [facility] POCT GLUCOSE (AUTOMATED) 2020-09-29 01:31:00 Jack [facility] ACTIVATED PARTIAL THRMPLAS 2020-09-28 22:33:00 Eva Limon [facility] HB ECG ROUTINE & RHYTHM 2020-09-28 20:09:53 Emily Kendall [facility] POCT GLUCOSE (AUTOMATED) 2020-09-28 12:15:00 Jack [facility] TROPONIN I 2020-09-28 09:42:[address] [facility] ACTIVATED PARTIAL THRMPLAS 2020-09-28 09:42:00 Eva Limon [facility] POCT GLUCOSE (AUTOMATED) 2020-09-28 06:29:00 Jack [facility] Cardiac catheterization, 2020-09-28 06:00:00 [facility] dionne Santana left heart<sup>2</sup> EKG-12 LEAD 2020-09-28 04:44:41 Jack [facility] TROPONIN I 2020-09-28 03:26:[address] [facility] LIPID PANEL ([id number])(TOTAL 2020-09-28 03:26:[address] [facility], HDL) ACTIVATED PARTIAL THRMPLAS 2020-09-28 03:26:00 Eva Limon [facility] CT CHEST PULMONARY 2020-09-27 21:31:11 Elisabet Deshpande [facility] ANGIOGRAM Medical Branch LACTATE DEHYDROGENASE 2020-09-27 21:05:00 Elisabet Deshpande [facility] LIPASE 2020-09-27 19:09:00 Elisabet Deshpande [facility] TROPONIN I 2020-09-27 19:09:00 Elisabet Deshpande [facility] HEPATIC FUNCTION PANEL 2020-09-27 19:09:[address] [facility] ([id number]) (ALB,T.PRO,BILI Medical Branch T,BU/BC,ALT,AST,ALK PHOS) BASIC METABOLIC PANEL (NA, 2020-09-27 19:09:00 Elisabet Deshpande [facility] K, CL, CO2, GLUCOSE, BUN, Medica l Branch CREATININE, CA) CBC WITH DIFF 2020-09-27 19:09:00 Elisabet Deshpande [facility] PROTHROMBIN TIME / INR 2020-09-27 19:09:00 Elisabet Deshpande [facility] D-DIMER 2020-09-27 19:09:00 Elisabet Deshpande [facility] ACTIVATED PARTIAL THRMPLAS 2020-09-27 19:09:00 Elisabet Deshpande [facility] N-TERMINAL PRO-BNP 2020-09-27 19:09:00 Elisabet Deshpande [facility] COVID-19 (ID NOW RAPID 2020-09-27 19:09:[address] [facility] TESTING) Medical Branch LAB ONLY COVID 2020-09-27 19:09:00 Elisabet Deshpande [facility] INTERPRETATION [facility] HB ECG ROUTINE & RHYTHM 2020-09-27 18:52:44 Elisabet Deshpande [facility] XR CHEST 1 VW 2020-09-27 18:52:03 Elisabet Deshpande [facility] NOTICE OF PRIVACY 2020-09-27 18:03:30 Doctor Unassigned, [facility] PRACTICES [facility] CARDIAC CATHETERIZATION 2019-11-16 00:00:00 Ross jae Max RIGHT SHOULDER SURGERY [facility] RIGHT FOOT SURGERY [facility] APPENDECTOMY [facility] Plan of Care Planned Activity Planned Date Details Comments Source Diagnostic Test 2023-04-20 glucose, fingerstick, Hilario Gamboa Pending 00:00:00 blood [code = Practice glucose, fingerstick, blood] Diagnostic Test 2023-04-20 hemoglobin A1C, Martir mackey Pending 00:00:00 fingerstick [code = Practice hemoglobin A1C, fingerstick] Diagnostic Test 2023-04-20 CBC w/ auto diff Martir Gamboa Pending 00:00:00 [code = CBC w/ auto Practice diff] Diagnostic Test 2023-04-20 CMP, serum or plasma [facility] Pending 00:00:00 [code = CMP, serum or Practi ce plasma] Diagnostic Test 2023-04-20 lipid panel, serum [facility] Pending 00:00:00 [code = lipid panel, Practic e serum] Diagnostic Test 2023-04-20 TSH, serum or plasma [facility] Pending 00:00:00 [code = TSH, serum or Practi ce plasma] Diagnostic Test 2023-04-20 T4, free, serum [code Hilario jada Family Pending 00:00:00 = T4, free, serum] Practice Diagnostic Test 2023-04-20 microalbumin/creatini Hilario jada Family Pending 00:00:00 ne, mass ratio, urine Practi ce [code = microalbumin/creatini ne, mass ratio, urine] Diagnostic Test 2023-04-20 diabetes panel, serum Hilario jada Family Pending 00:00:00 [code = diabetes Practice panel, serum] Diagnostic Test 2023-04-20 C-peptide, serum [facility] Pending 00:00:00 [code = C-peptide, Practice serum] Future Appointment 2023-10-20 Garth Rios, Genia Mcma[facility] 09:00:[address]; Practice [address] [place] [id number] Future Appointment 2023-10-20 Genia Mehta Family 00:00:[address]; Practice [address], [place] [address] Encounters Start End Encounter Admission Attending Care Care Encounter Source Date/Time Date/Time Type Type Clinicians Facility Department ID 2023-03-27 Outpatient [facility] [id number] [place] 11:45:47 [id number] [facility] 2023-01-05 Outpatient [facility] [id number] [place] 12:32:47 [id number] [facility] 2022-12-29 Outpatient [facility] [id number] [place] 18:46:44 [id number] [facility] 2022-08-27 Outpatient [facility] [id number] [place] 18:04:34 [id number] [facility] 2022-05-20 Outpatient JESSICA, [id number] 18:18:22 KJ 2022-02-14 Outpatient [facility] [id number] [place] 14:40:[id number] [facility] 2022-02-12 Outpatient [facility] [id number] [place] 13:10:[id number] [facility] 2021-12-04 Outpatient JESSICA, [facility] CAR [id number] [facility] 08:31:55 [facility] 2021-10-23 Outpatient VISHAL, [facility] [id number] [place] 01:04:21 [facility] 2021-07-29 Outpatient VISHAL, [facility] [id number] [place] 09:32:19 [facility] 2021-07-19 [id number] 09:55:12 [facility] 2021-06-10 Outpatient VISHAL, [facility] [id number] [place] 10:07:33 [facility] 2021-05-23 Outpatient VISHAL, [facility] [id number] [place] 10:39:56 [facility] 2021-05-21 Outpatient GERMAN, [facility] [id number] [place] 08:47:00 [facility] 2021-[facility]-26 Outpatient JESSICA, [facility] [id number] [place] 01:03:33 [facility] 2023-04-20 2023-04-20 Outpatient Daniel_T VFP VFP [id number] [address] [place] [address] 00:00:00 00:00:00 [id number] Family Practic e 2023-04-20 2023-04-20 Outpatient Getel_T VFP VFP [id number] [address] [place] [address] 00:00:00 00:00:00 [id number] Family Practic e 2023-04-20 2023-04-20 Garth VFP [place] - [id number] V illage 00:00:00 00:00:00 [facility] Bogdan Amaya - Pascual floyd MD: [id number] [place] - e Shadow _[facility], [address], [place] [address] , Ph. 2023-04-17 2023-04-17 Outpatient Daniel_T VFP VFP [id number] [address] [place] [address] 00:00:00 00:00:00 [id number] Family Practic e 2023-03-02 2023-03-02 Outpatient JESSICA, [facility] CAR [id number] [facility] 11:03:00 23:59:00 KJ 2023-03-02 2023-03-02 External Jessica, EXT MSRDP [id number] [place] 10:30:00 10:45:00 Contact Kj LOCATION [id number] H ealth [id number] 2023-01-13 2023-01-13 Outpatient Daniel_T VFP VFP [id number] [address] [place] [address] 00:00:00 00:00:00 [id number] Family Practic e 2023-01-13 2023-01-13 Outpatient Daniel_T VFP VFP [id number] [address] [place] [address] 00:00:00 00:00:00 [id number] Family Practic e 2023-01-13 2023-01-13 Garth VFP [place] - [id number] V illage 00:00:00 00:00:00 [facility] Family Rios, Medical - Practi everett ASENCIO: [id number] [place] - e Shadow [facility] [address], [address], [place] [address] , Ph. 2022-09-10 2022-09-10 Outpatient JESSICA, [facility] CAR [id number] [facility] 09:39:00 23:59:00 [facility] 2022-08-26 2022-08-26 Outpatient JESSICA, [facility] CAR [id number] [facility] 10:09:00 23:59:00 [facility] 2022-08-26 2022-08-26 Office JESSICA, EXT MSRDP [id number] [place] 10:15:00 10:15:00 Visit KJ LOCATION [id number] H ealth [id number] 2022-07-28 2022-07-28 Outpatient Daniel_T VFP VFP [id number] [address] [place] [address] 00:00:00 00:00:00 [id number] Family Practic e 2022-07-25 2022-07-25 Outpatient Daniel_T VFP VFP [id number] [address] [place] [address] 00:00:00 00:00:00 [id number] Family Practic e 2022-07-25 2022-07-25 Garth VFP [place] - [id number] V illage 00:00:00 00:00:00 [facility] Family RiosBogdan MD: [id number] SUNIL_LIAN_Dineshd e Shadow [address] [facility], [address], [place] [address] , Ph. 2022-07-24 2022-07-24 Outpatient Daniel_T VFP VFP [id number] [address] [place] [address] 00:00:00 00:00:00 [id number] Family Practic e 2022-02-24 2022-02-24 Outpatient Daniel_T VFP VFP [id number] [address] [place] [address] 00:00:00 00:00:00 [id number] Family Practic e 2022-01-30 2022-01-30 Outpatient Daniel_T VFP VFP [id number] [address] [place] [address] 05:03:00 05:03:00 [id number] Family Practic e 2022-01-17 2022-01-17 Garth Daniel_T VFP [place] - [id number] [facility] 00:00:00 00:00:00 [facility] [id number] Family iRosBogdan - Pascual floyd MD: [id number] SUNIL_LIAN_Dineshd e Shadow ow [facility], [address] [address] , Ph. 2021-12-27 2021-12-28 Outpatient nullFlavo [id number] Memoria 15:53:00 05:59:00 r Community 09 l Cardiology Debra nn [place] 2021-12-27 2021-12-27 Outpatient JESSICA, [facility] CAR 7509 [facility] 09:53:00 23:59:00 KJ 2021-12-25 2021-12-25 Outpatient Daniel_T VFP VFP [id number] [address] [place] [address] 07:43:00 07:43:00 [id number] Family Practic e 2021-12-23 2021-12-24 Outpt Diag nullFlavo [facility] [id number] Memoria 19:05:00 05:59:00 Services r Outpatient 03 l Imaging [place] 2021-12-17 2021-12-17 Office JOI Estrada [facility] 1.2.840.114 [id number] [place] 11:00:00 13:01:59 Visit [facility] 350.1.13.58 He alth [place] 4 9.2.7.2.686 [id number] 4 2021-09-10 2021-09-10 EXT MH OP EXT MSRDP 1.2.840.114 1 [id number] [place] 00:00:00 00:00:00 LOCATION 350.1.13.58 H ealth 9.2.7.2.686 [id number] 0 2021-09-10 2021-09-10 EXT MH OP EXT MSRDP 1.2.840.114 1 [id number] [place] 00:00:00 00:00:00 LOCATION 350.1.13.58 H ealth 9.2.7.2.686 [id number] 0 2021-08-29 2021-08-30 Outpatient nullFlavo [id number] 06515 [facility] 18:52:00 04:59:00 r Community 04 l Cardiology Debra nn [place] 2021-08-29 2021-08-29 Outpatient JESSICA, [facility] CAR 7504 [facility] 13:52:00 23:59:00 KJ 2021-08-29 2021-08-29 Office JESSICA, EXT MSRDP 1.2.036.502 [id number] [place] 13:57:55 14:12:55 Visit KJ LOCATION 350.1.13.58 H ealth 9.2.7.2.686 [id number] 0 2021-08-29 2021-08-29 Office Jessica, EXT MSRDP 1.2.526.433 [id number] [place] 13:57:55 14:12:55 Visit Kj LOCATION 350.1.13.58 H ealth 9.2.7.2.686 [id number] 0 2021-08-08 2021-08-08 Office Vishal [facility] 1.2.840.114 [id number] [place] 08:55:09 10:19:56 Visit [facility] 350.1.13.58 He alth [place] 4 9.2.7.2.686 [id number] 4 2021-08-07 2021-08-08 Outpt Diag nullFlavo [facility] 01203 [id number] [facility] 13:55:00 04:59:00 Services r Outpatient 02 l [facility] 2021-08-07 2021-08-07 Telephone Paulette Harris [facility] 1.2. 840.114 [id number] [place] 00:00:00 00:00:00 Paulette Harris MED 350.1.13.5 8 Health PLA[place] 4 9.2.7.2.686 [id number] 4 2021-08-07 2021-08-07 EXT [facility] OP Vishal, EXT MSR[facility] 1.2.840.114 [id number] [place] 00:00:00 00:00:00 [facility] LOCATION 350.1.13.58 H ealth 9.2.7.2.686 [id number] 0 2021-08-07 2021-08-07 EXT [facility] OP Vishal, EXT MSRDP 1.2.840.114 [id number] [place] 00:00:00 00:00:00 [facility] LOCATION 350.1.13.58 H ealth 9.2.7.2.686 [id number] 0 2021-07-24 2021-07-29 Inpatient [facility] [id number] [facility] 10:12:00 21:27:00 [facility] 2021-07-24 2021-07-29 Inpatient JUAN M, [facility] PUL 7507 [facility] 05:12:00 16:27:00 AIMEE 2021-07-29 2021-07-29 Telephone Fany Barrow [facility] 1.2.840. 114 [id number] [place] 00:00:00 00:00:00 Fany Barrow MED 350.1.13.58 Health PLA[place] 4 9.2.7.2.686 [id number] 4 2021-07-29 2021-07-29 Telephone Fany Barrow UTP [facility] 1.2.840. 114 [id number] [place] 00:00:00 00:00:[address] MED 350.1.13.58 Health PLAZA 4 9.2.7.2.686 [id number] 4 2021-07-29 2021-07-29 Orders Fany Barrow UTP [facility] 1.2.840.11 4 [id number] [place] 00:00:00 00:00:00 Only Larissa Barrowa SW MED 350.1.13.58 Health PLAZA 4 9.2.7.2.686 [id number] 4 2021-07-29 2021-07-29 Telephone Fany Barrow UTP [facility] 1.2.840. 114 [id number] [place] 00:00:00 00:00:00 Larissa Barrowa SW MED 350.1.13.58 Health PLAZA 4 9.2.7.2.686 [id number] 4 2021-07-29 2021-07-29 Telephone Fany Barrow [facility] 1.2.840. 114 [id number] [place] 00:00:00 00:00:00 Larissa Barrowa SW MED 350.1.13.58 Health PLAZA 4 9.2.7.2.686 [id number] 4 2021-07-29 2021-07-29 Orders Fany Barrow UTP [facility] 1.2.840.11 4 [id number] [place] 00:00:00 00:00:00 Only Larissa Barrowa SW MED 350.1.13.58 Health PLAZA 4 9.2.7.2.686 [id number] 4 2021-07-24 2021-07-24 EXT MH OP EMILY Estrada [facility] 1.2.840.114 [id number] [place] 07:13:11 12:13:11 [facility] LOCATION 350.1.13.58 H ealth 9.2.7.2.686 [id number] 1 2021-07-24 2021-07-24 EXT [facility] OP Vishal, EXT MSR[facility] 1.2.840.114 [id number] [place] 07:13:11 12:13:11 Moi LOCATION 350.1.13.58 H ealth 9.2.7.2.686 [id number] 1 2021-07-23 2021-07-24 Outpt Diag Christiano [facility] 63939 [id number] [facility] 17:10:00 04:59:00 Services r [address] 2021-07-23 2021-07-23 EXT [facility] OP Vishal, EXT MSR[facility] 1.2.840.114 [id number] [place] 00:00:00 00:00:00 Moi LOCATION 350.1.13.58 H ealth 9.2.7.2.686 [id number] 0 2021-07-23 2021-07-23 EXT [facility] OP Vishal, EXT MSR[facility] 1.2.840.114 [id number] [place] 00:00:00 00:00:00 Moi LOCATION 350.1.13.58 H ealth 9.2.7.2.686 [id number] 0 2021-07-17 2021-07-17 EXT [facility] OP Vishal, EXT MSR[facility] 1.2.840.114 [id number] [place] 00:00:00 00:00:00 Moi LOCATION 350.1.13.58 H ealth 9.2.7.2.686 [id number] 0 2021-07-17 2021-07-17 EXT [facility] OP Vishal, EXT MSR[facility] 1.2.840.114 [id number] [place] 00:00:00 00:00:00 Moi LOCATION 350.1.13.58 H ealth 9.2.7.2.686 [id number] 0 2021-07-16 2021-07-16 Office JOI Estrada [facility] 1.2.840.114 [id number] [place] 09:09:17 10:52:16 Visit [facility] 350.1.13.58 He alth [place] 4 9.2.7.2.686 [id number] 4 2021-07-16 2021-07-16 Office JOI Estrada [facility] 1.2.840.114 [id number] [place] 09:09:17 10:52:16 Visit Moi [facility] 350.1.13.58 He alth PLA[place] 4 9.2.7.2.686 [id number] 4 2021-07-16 2021-07-16 Telephone Fany Barrow UTP [facility] 1.2.840. 114 [id number] [place] 00:00:00 00:00:00 BarrowFany nur MED 350.1.13.58 Health PLAZA 4 9.2.7.2.686 [id number] 4 2021-07-16 2021-07-16 Telephone Fany Barrow [facility] 1.2.840. 114 [id number] [place] 00:00:00 00:00:00 Fany Barrow MED 350.1.13.58 Health PLAZA 4 9.2.7.2.686 [id number] 4 2021-06-26 2021-06-27 [facility] 034[facility] [id number] [facility] 18:08:00 04:59:00 Services r Outpatient 00 l [facility] 2021-06-26 2021-06-26 EXT [facility] OP Vishal, EMILY M[facility] 1.2.840.114 [id number] [place] 00:00:00 00:00:00 [facility] LOCATION 350.1.13.58 H ealth 9.2.7.2.686 [id number] 0 2021-06-26 2021-06-26 EXT [facility] OP Vishal, EXT MSR[facility] 1.2.840.114 [id number] [place] 00:00:00 00:00:00 Moi LOCATION 350.1.13.58 H ealth 9.2.7.2.686 [id number] 0 2021-06-21 2021-06-22 Outpatient [facility] [id number] [facility] 14:22:00 04:59:00 r Max 06 l [facility] 2021-06-21 2021-06-21 Outpatient VISHAL [facility] 7506 [facility] 09:22:00 23:59:00 MOI 2021-06-21 2021-06-21 Outpatient Gabriel_T VFP P [id number] 3-20 [facility] 05:45:00 05:45:00 [id number] Family Lisa sheridan 2021-06-19 2021-06-19 Telephone Fany Barrow [facility] 1.2.840. 114 [id number] [place] 00:00:00 00:00:00 Fany Barrow MED 350.1.13.58 Health PLAZA 4 9.2.7.2.686 [id number] 4 2021-06-19 2021-06-19 EXT [facility] OP Vishal, EXT MSR[facility] 1.2.840.114 [id number] [place] 00:00:00 00:00:00 Moi LOCATION 350.1.13.58 H ealth 9.2.7.2.686 [id number] 0 2021-06-19 2021-06-19 EXT [facility] OP Vishal, EXT MSR[facility] 1.2.840.114 [id number] [place] 00:00:00 00:00:00 [facility] LOCATION 350.1.13.58 H ealth 9.2.7.2.686 [id number] 0 2021-06-18 2021-06-18 Garthblack Rios_Jamar VFP [place] - [id number] [facility] 00:00:00 00:00:00 [facility] [place] [id number] Family Rios Bogdan - Pracstacey floyd MD: [id number] VM_HOU_Shagudelia e [facility] Southek Chenega [facility], [address], [place] [address] , Ph. 2021-06-14 2021-06-14 Telephone Fany Barrow [facility] 1.2.840. 114 [id number] [place] 00:00:00 00:00:00 Fany Barrow MED 350.1.13.58 Health PLAZA 4 9.2.7.2.686 [id number] 4 2021-06-14 2021-06-14 Telephone Fany Barrow [facility] 1.2.840. 114 [id number] [place] 00:00:00 00:00:00 Danial Fany MED 350.1.13.58 Health PLAZA 4 9.2.7.2.686 [id number] 4 2021-06-11 2021-06-11 Office JOI Estrada [facility] 1.2.840.114 [id number] [place] 09:03:20 10:29:18 Visit [facility] MED 350.1.13.58 He alth PLAZA 4 9.2.7.2.686 [id number] 4 2021-06-05 2021-[id number] Memoria 15:19:00 20:30:00 Outpatient r Max 05 l [place] Debra 2021-06-05 2021-06-05 Outpatient JESSICA [facility] CAR 7505 [facility] 10:19:00 15:30:00 [facility] 2021-06-04 2021-06-04 Office JOI Porter ZHEN 1.2.840.114 [id number] [place] 13:24:03 14:16:53 Visit Mk MAGAÑA 350.1.13.58 Health MULTI 9.2.7.2.686 SPECIALTY [id number] CLINIC 1 2021-05-23 2021-05-24 Outpatient [facility] [id number] Memoria 14:59:00 04:59:00 r Community 01 l Cardiology Debra nn [place] 2021-05-23 2021-05-23 Outpatient JESSICA [facility] CAR 7501 [facility] 09:59:00 23:59:00 [facility] 2021-05-23 2021-05-23 Office JOI Estrada [facility] 1.2.840.114 [id number] [place] 11:22:49 12:23:40 Visit [facility] MED 350.1.13.58 He alth PLAZA 4 9.2.7.2.686 [id number] 4 2021-05-21 2021-05-21 Telephone JOI Porter ZHEN 1.2.840.114 1 [id number] [place] 00:00:00 00:00:00 Mk RANCH 350.1.13.58 Health MULTI 9.2.7.2.686 SPECIALTY [id number] CLINIC 1 2021-05-11 2021-05-12 Outpatient [facility] 4699 [id number] Memoria 21:02:00 04:59:00 r Max 03 l [facility] 2021-05-11 2021-05-11 Outpatient JESSICA, [facility] CAR 7503 [facility] 16:02:00 23:59:00 KJ 2021-05-09 2021-05-09 EXT [facility] OP Jessica, EXT MSR[facility] 1.2.840.114 1 [id number] [place] 00:00:00 00:00:00 Kj LOCATION 350.1.13.58 H ealth 9.2.7.2.686 [id number] 0 2021-05-09 2021-05-09 EXT [facility] OP Jessica, EXT MSRDP 1.2.840.114 1 [id number] [place] 00:00:00 00:00:00 Kj LOCATION 350.1.13.58 H ealth 9.2.7.2.686 [id number] 0 2021-04-25 2021-04-25 Orders Doctor CYNTHIA 1.2.840.114 [id number] Univers 00:00:00 00:00:00 Only Unassigned, CANDELARIO 350.1.13.10 [facility] 4.2.7.2.686 [place] as [phone] [address] 2021-04-25 2021-04-25 Orders Doctor MARIE 1.2.840.114 [id number] 00:00:00 00:00:00 Only Unassigned, CANDELARIO 350.1.13.10 [facility] 4.2.7.2.686 [id number] 009 2021-04-18 2021-04-18 Bedded [facility] [id number] Memoria 12:29:00 17:55:00 Outpatient sumi Santana 02 l [facility] 2021-04-18 2021-04-18 Outpatient JESSICA, [facility] CAR 7502 [facility] 07:29:00 12:55:00 KJ 2021-04-10 2021-04-10 Orders Doctor CYNTHIA [place]2.840.114 [id number] Univers 00:00:00 00:00:00 Only Unassigned, CANDELARIO 350.1.13.10 ity of [place] [facility] 4.2.7.2.686 [place] [phone] [place] [address] [place] 2021-04-10 2021-04-10 Orders Doctor CYNTHIA 1.2.840.114 [id number] 00:00:00 00:00:00 Only Unassigned, CANDELARIO 350.1.13.10 [place] [facility] 4.2.7.2.686 [id number] 009 2021-03-22 2021-03-23 Outpatient nullFlavo [id number] Memoria 15:30:00 04:59:00 r Community 00 l Cardiology Debra nn [place] 2021-03-22 2021-03-22 Outpatient JESSICA, [facility] CAR 7500 [facility] 10:30:00 23:59:00 KJ 2021-03-13 2021-03-13 Outpatient [facility] 1030 [id number] Univers 14:00:00 14:00:00 [facility] 2021-03-11 2021-03-11 Outpatient [facility] [id number] Univers 10:00:00 10:00:00 SANTHISRI [facility] 2021-01-28 2021-01-28 Telephone [facility] 1.2.840.114 [id number] Univers 00:00:00 00:00:00 [facility] Health 350.1.13.10 it [place] [id number] [facility] [address] 2021-01-28 2021-01-28 Telephone [facility] 1.2.840.114 [id number] 00:00:00 00:00:00 Ahmed Health 350.1.13.10 [place] 4.2.7.2.686 [place] [id number] [place] [address] Office Building 2021-01-25 2021-01-25 Outpatient [facility] 1031 [id number] Univers 15:00:00 15:00:00 [facility] 2021-01-23 2021-01-23 Patient Alfie [facility] 1.2.840.114 [id number] Univers 00:00:00 00:00:00 Outreach Huy PRIMARY 350.1.13.10 i ty of [place].2.[place] [id number] Il dical [address] [place] [address] 2021-01-23 2021-01-23 Patient Alfie [facility] 1.2.840.114 [id number] 00:00:00 00:00:00 Outreach Huy PRIMARY 350.1.13.10 [place] CARE 4.2.7.2.686 PAVILLION [id number] 2021-01-09 2021-01-09 Outpatient R MURRAY [facility] 1031 [id number] Univers 16:00:00 16:00:00 [facility] 2021-01-09 2021-01-09 [facility] 1.2.840.114 [id number] Univers 14:27:31 14:57:31 Visit [facility] 350.1.13.10 it y [place].7.2.686 [place] [id number] [facility] [address] 2021-01-09 2021-01-09 Office Murray [facility] 1.2.840.114 [id number] 14:27:31 14:57:31 Visit [facility] 350.1.13.10 [place] 4.2.7.2.686 [place] [id number] [place] [address] Office Building 2020-12-21 2020-12-21 Outpatient R MURRAY [facility] 1030 [id number] Univers 15:00:00 15:00:00 [facility] 2020-12-21 2020-12-21 Collection Systems Consultant Draw, Clc-Bls Lab [facility] 1.2.8 40.114 [id number] Univers 13:50:24 14:05:24 [facility] 350.1. 13.10 ity of [place].7.2.686 [place] [id number] [place] [address] [address] Office Building 2020-12-13 2020-12-13 Collection Systems Consultant Draw, Clc-Bls Lab [facility] 1.2.8 40.114 [id number] Univers 16:20:50 16:35:50 Visit Blaise Crouch [facility] 350.1.13.10 ity [place].2.686 [place] [id number] [address] Office Building 2020-12-13 2020-12-13 Office Marco [facility] 1.2.840.114 [id number] Univers 15:03:01 16:19:17 Visit Blaise [facility] 350.1.13.10 ity of [place].7.2.686 [place] [id number] [address] Office Building 2020-12-13 2020-12-13 Outpatient R MARCO [facility] [id number] Univers 15:15:00 15:15:00 BLAISE ity [facility] 2020-11-23 2020-11-23 Refill Murray [facility] 1.2.840.114 [id number] Univers 00:00:00 00:00:00 [facility] Health 350.1.13.10 it y [place].7.2.686 [place] [phone] [address] Office Building 2020-10-18 2020-10-18 Patient Cristina Stephens 1.2.840.114 [id number] Univers 00:00:00 00:00:00 Outreach E Bonilla 350.1.13.10 i ty [place].2.7.2.686 [place] [id number] [address] 2020-10-10 2020-10-10 Collection Systems Consultant Draw, Clc-Bls Lab [facility] 1.2.8 40.114 [id number] Univers 16:44:39 16:59:39 Visit [facility] 350.1. 13.10 ity [place]2.7.2.686 [place] [id number] [address] Office Building 2020-10-10 2020-10-10 Office Murray KSDEBBY 1.2.840.114 [id number] Univers 15:37:28 16:46:12 Visit [facility] 350.1.13.10 it y of [place] 4.2.7.2.686 [place] [id number] [place] [address] [address] Office Building 2020-10-10 2020-10-10 Outpatient R MURRAY, [facility] 1029 [id number] Univers 16:00:00 16:00:00 AHMED ity of [facility] 2020-10-10 2020-10-10 Orders Doctor CYNTHIA 1.2.840.114 [id number] Univers 00:00:00 00:00:00 Only Unassigned, CANDELARIO 350.1.13.10 it[place] of [place] [facility] 4.2.7.2.686 [place] [id number] [facility] [address] 2020-10-08 2020-10-08 Outpatient Daniel_T VFP [facility] [id number] 3-20 [facility] 03:15:00 03:15:00 [id number] Family Practic e 2020-10-04 2020-10-04 Transition Shiv Padilla 1.2.840.114 [id number] Univers 00:00:00 00:00:00 of Care Petrona Bon[place] 350.1.13.10 ity [place].2.[place] [id number] [facility] [address] 2020-10-04 2020-10-04 Transition Shiv Jessica 1.2.840.114 [id number] Univers 00:00:00 00:00:00 of Care Maya Bonilla 350.1.13.10 it y [place] 4.[place].7.2.[place] [id number] [facility] [address] 2020-09-27 2020-10-03 Hospital Elisabet Deshpande 1.2.840. 114 [id number] Univers 12:25:00 20:29:00 Encounter Oleksandr Santiago 350.1.13.10 ity of [facility] 4.2.7.2.686 [place] [id number] [facility] [address] 2020-09-27 2020-09-27 Emergency X [facility] ERT [id number] Univers 12:06:00 12:06:00 [facility] Results Test Description Test Time Test Comments Results Result Comments Source Hemoglobin A1c measurement device panel 2023-04-20 10:27:06 Test Item Value Reference Range Interpretation Comme nts Hemoglobin A1c/Hemoglobin.total in Blood (test code = 4548-4) 6.9 % 4.0-6.4 [facility] Practice[facility] [Mass/volume] in Capillary [id number] 10:21:18 Test Item Value Reference Range Interpretation Comments Blood Glucose: mg/dl (test code = Blood 153 Glucose: mg/dl) [facility] PracticeHemoglobin A1c measurement device [id number] 13:53:22 Test Item Value Reference Range Interpretation Comments Hemoglobin A1c/Hemoglobin.total in 7.0 % 5.7-6.4 Blood (test code = 4548-4) [facility] PracticeGlucose [Mass/volume] in Capillary [id number] 13:49:10 Test Item Value Reference Range Interpretation Comments Blood Glucose: mg/dl (test code = Blood 149 Glucose: mg/dl) [facility] [id number] 10:40:31 Test Item Value Reference Range Interpretation Comments Hemoglobin A1c/Hemoglobin.total in 6.7 % 5.7-6.4 Blood (test code = 4548-4) [facility] PracticeGlucose [Mass/volume] in Capillary [id number] 10:37:30 Test Item Value Reference Range Interpretation Comments Blood Glucose: mg/dl (test code = Blood 149 Glucose: mg/dl) [facility] [id number] 08:51:25 Test Item Value Reference Range Interpretation Comments Hemoglobin A1C Fingerstick: (test code 6.2 = Hemoglobin A1C Fingerstick:) [facility] PracticeGlucose [Mass/volume] in Capillary [id number] 08:51:14 Test Item Value Reference Range Interpretation Comments Blood Glucose: mg/dl (test code = Blood 127 Glucose: mg/dl) [facility] [id number] 09:59:00 Test Item Value Reference Range Interpretation Comments Glucose Lvl (test code = Glucose Lvl) 101 70-99 [facility] [id number] 09:59:00 Test Item Value Reference Range Interpretation Comments BUN (test code = BUN) 15 - [place] [id number] 09:59:00 Test Item Value Reference Range Interpretation Comments Creatinine Lvl (test code = Creatinine 0.70 0.50-1.40 Lvl) [place] 159351-09-13 09:59:00 Test Item Value Reference Range Interpretation Comments Sodium Lvl (test code = Sodium Lvl) 135 135-145 [place] 159351-09-13 09:59:00 Test Item Value Reference Range Interpretation Comments Potassium Lvl (test code = Potassium 3.4 3.5-5.1 Lvl) [place] 159351-09-13 09:59:00 Test Item Value Reference Range Interpretation Comments Chloride Lvl (test code = Chloride Lvl) 101 95-109 [place] 159351-09-13 09:59:00 Test Item Value Reference Range Interpretation Comments CO2 (test code = CO2) 28 24-32 [place] 159351-09-13 09:59:00 Test Item Value Reference Range Interpretation Comments AGAP (test code = AGAP) 9.4 10.0-20.0 [place] 159351-09-13 09:59:00 Test Item Value Reference Range Interpretation Comments Calcium Lvl (test code = Calcium Lvl) 8.6 8.5-10.5 [place] 159351-09-13 09:59:00 Test Item Value Reference Range Interpretation Comments eGFR (test code = eGFR) 101 [place] 159351-09-13 09:59:00 Test Item Value Reference Range Interpretation Comments Magnesium Lvl (test code = Magnesium 2.3 1.8-2.4 Lvl) [place] [id number] 09:59:00 Test Item Value Reference Range Interpretation Comments Segs (test code = Segs) 53.1 45.0-75.0 [place] [id number] 09:59:00 Test Item Value Reference Range Interpretation Comments Lymphocytes (test code = Lymphocytes) 31.0 20.0-40.0 [place] [id number] 09:59:00 Test Item Value Reference Range Interpretation Comments Monocytes (test code = Monocytes) 11.9 2.0-12.0 [place] [id number] 09:59:00 Test Item Value Reference Range Interpretation Comments Eosinophils (test code = 3.5 See_Comment [A utomated message] The Eosinophils) system which ge nerated this result tra nsmitted reference range : <=4.0. The reference r qi was not used to int erpret this result as normal/abnormal . [id number] 09:59:00 Test Item Value Reference Range Interpretation Comments Basophils (test code = 0.5 See_Comment [Aut omated message] The Basophils) system which ge nerated this result tra nsmitted reference range : <=1.0. The reference r qi was not used to int erpret this result as normal/abnormal . [facility] [id number] 09:59:00 Test Item Value Reference Range Interpretation Comments Neutrophils # (test code = Neutrophils 3.5 1.5-8.1 #) [facility] CampusDlljwdxAIHULRMCLX0703-47-44 09:59:00 Test Item Value Reference Range Interpretation Comments Lymphocytes # (test code = Lymphocytes 2.0 1.0-5.5 #) [facility] CampusIkrtewuYKNKNXWZSS0078-64-80 09:59:00 Test Item Value Reference Range Interpretation Comments Monocytes # (test code 0.8 See_Comment [Aut omated message] The = Monocytes #) system which generated this result tra nsmitted reference range : <=0.8. The reference r qi was not used to int erpret this result as normal/abnormal . [facility]TyyzsmaLLQFQYTGEW8605-41-95 09:59:00 Test Item Value Reference Range Interpretation Comments Eosinophils # (test code 0.2 See_Comment [A utomated message] The = Eosinophils #) system whic h generated this result tra nsmitted reference range : <=0.5. The reference r qi was not used to int erpret this result as normal/abnormal . [facility]LlffkckBJYKPIFCWK2372-34-60 09:59:00 Test Item Value Reference Range Interpretation Comments WBC X 10x3 (test code = WBC X 10x3) 6.6 3.7-10.4 [facility]UbkurslBKLTHPUGMJ3582-86-53 09:59:00 Test Item Value Reference Range Interpretation Comments RBC X 10x6 (test code = RBC X 10x6) 2.93 4.70-6.10 [facility]EzzivnnWHBSCZQGRG7222-61-93 09:59:00 Test Item Value Reference Range Interpretation Comments Hgb (test code = Hgb) 9.3 14.0-18.0 [place] [id number] 09:59:00 Test Item Value Reference Range Interpretation Comments Hct (test code = Hct) 27.5 42.0-54.0 [place] [id number] 09:59:00 Test Item Value Reference Range Interpretation Comments MCV (test code = MCV) 93.9 80.0-94.0 [place] [id number] 09:59:00 Test Item Value Reference Range Interpretation Comments MCH (test code = MCH) 31.8 pg 27.0-31.0 [place] [id number] 09:59:00 Test Item Value Reference Range Interpretation Comments MCHC (test code = MCHC) 33.9 32.0-36.0 [place] [id number] 09:59:00 Test Item Value Reference Range Interpretation Comments RDW (test code = RDW) 13.6 11.5-14.5 [place] [id number] 09:59:00 Test Item Value Reference Range Interpretation Comments Platelet (test code = Platelet) 161 133-450 The [facility]KpwdipxLKSYTTJTEL6967-69-51 09:59:00 Test Item Value Reference Range Interpretation Comments MPV (test code = MPV) 9.1 7.4-10.4 [facility]2021-09-12 15:37:00 Test Item Value Reference Range Interpretation Comments Glucose Lvl (test code = Glucose Lvl) 190 70-99 [place] 159351-09-12 15:37:00 Test Item Value Reference Range Interpretation Comments BUN (test code = BUN) 20 7-22 [place] 159351-09-12 15:37:00 Test Item Value Reference Range Interpretation Comments Creatinine Lvl (test code = Creatinine 0.80 0.50-1.40 Lvl) [facility]2021-09-12 15:37:00 Test Item Value Reference Range Interpretation Comments Sodium Lvl (test code = Sodium Lvl) 135 135-145 [place] 159351-09-12 15:37:00 Test Item Value Reference Range Interpretation Comments Potassium Lvl (test code = Potassium 3.3 3.5-5.1 Lvl) [place] 159351-09-12 15:37:00 Test Item Value Reference Range Interpretation Comments Chloride Lvl (test code = Chloride Lvl) 101 95-109 [place] 159351-09-12 15:37:00 Test Item Value Reference Range Interpretation Comments CO2 (test code = CO2) 29 24-32 [place] 159351-09-12 15:37:00 Test Item Value Reference Range Interpretation Comments Calcium Lvl (test code = Calcium Lvl) 8.5 8.5-10.5 [place] 159351-09-12 15:37:00 Test Item Value Reference Range Interpretation Comments AGAP (test code = AGAP) 8.3 10.0-20.0 [place] 159351-09-12 15:37:00 Test Item Value Reference Range Interpretation Comments eGFR (test code = eGFR) 96 [place] 159351-09-12 15:37:00 Test Item Value Reference Range Interpretation Comments Magnesium Lvl (test code = Magnesium 2.3 1.8-2.4 Lvl) [place] 227981-09-12 15:37:00 Test Item Value Reference Range Interpretation Comments WBC X 10x3 (test code = WBC X 10x3) 7.4 3.7-10.4 [place] 227981-09-12 15:37:00 Test Item Value Reference Range Interpretation Comments RBC X 10x6 (test code = RBC X 10x6) 3.03 4.70-6.10 [place] 227981-09-12 15:37:00 Test Item Value Reference Range Interpretation Comments Hgb (test code = Hgb) 9.6 14.0-18.0 [place] 227981-09-12 15:37:00 Test Item Value Reference Range Interpretation Comments Hct (test code = Hct) 28.3 42.0-54.0 [place] 227981-09-12 15:37:00 Test Item Value Reference Range Interpretation Comments MCV (test code = MCV) 93.4 80.0-94.0 [place] 227981-09-12 15:37:00 Test Item Value Reference Range Interpretation Comments MCH (test code = MCH) 31.7 pg 27.0-31.0 [place] 227981-09-12 15:37:00 Test Item Value Reference Range Interpretation Comments MCHC (test code = MCHC) 33.9 32.0-36.0 [place] 227981-09-12 15:37:00 Test Item Value Reference Range Interpretation Comments RDW (test code = RDW) 13.3 11.5-14.5 [place] 227981-09-12 15:37:00 Test Item Value Reference Range Interpretation Comments Platelet (test code = Platelet) 148 133-450 [place] 227981-09-12 15:37:00 Test Item Value Reference Range Interpretation Comments MPV (test code = MPV) 9.0 7.4-10.4 [place] 159351-09-11 07:38:00 Test Item Value Reference Range Interpretation Comments Glucose Lvl (test code = Glucose Lvl) 127 70-99 [place] 159351-09-11 07:38:00 Test Item Value Reference Range Interpretation Comments BUN (test code = BUN) 21 7-22 [place] 159351-09-11 07:38:00 Test Item Value Reference Range Interpretation Comments Creatinine Lvl (test code = Creatinine 0.80 0.50-1.40 Lvl) [place] 159351-09-11 07:38:00 Test Item Value Reference Range Interpretation Comments Sodium Lvl (test code = Sodium Lvl) 136 135-145 [place] 159351-09-11 07:38:00 Test Item Value Reference Range Interpretation Comments Potassium Lvl (test code = Potassium 3.7 3.5-5.1 Lvl) [place] 159351-09-11 07:38:00 Test Item Value Reference Range Interpretation Comments Chloride Lvl (test code = Chloride Lvl) 104 95-109 [place] 159351-09-11 07:38:00 Test Item Value Reference Range Interpretation Comments CO2 (test code = CO2) 28 24-32 [place] 159351-09-11 07:38:00 Test Item Value Reference Range Interpretation Comments Calcium Lvl (test code = Calcium Lvl) 8.0 8.5-10.5 [place] 159351-09-11 07:38:00 Test Item Value Reference Range Interpretation Comments AGAP (test code = AGAP) 7.7 10.0-20.0 [place] 159351-09-11 07:38:00 Test Item Value Reference Range Interpretation Comments eGFR (test code = eGFR) 96 [place] 159351-09-11 07:38:00 Test Item Value Reference Range Interpretation Comments Magnesium Lvl (test code = Magnesium 2.3 1.8-2.4 Lvl) [place] 159351-09-11 07:38:00 Test Item Value Reference Range Interpretation Comments Phosphorus (test code = Phosphorus) 1.6 2.5-4.5 [place] 227981-09-11 07:38:00 Test Item Value Reference Range Interpretation Comments Segs (test code = Segs) 63.3 45.0-75.0 [place] 227981-09-11 07:38:00 Test Item Value Reference Range Interpretation Comments Lymphocytes (test code = Lymphocytes) 24.5 20.0-40.0 [place] 227981-09-11 07:38:00 Test Item Value Reference Range Interpretation Comments Monocytes (test code = Monocytes) 11.2 2.0-12.0 [place] 227981-09-11 07:38:00 Test Item Value Reference Range Interpretation Comments Eosinophils (test code = 0.7 See_Comment [A utomated message] The Eosinophils) system which nerated this result tra nsmitted reference range : <=4.0. The reference r qi was not used to int erpret this result as normal/abnormal . [place] 227981-09-11 07:38:00 Test Item Value Reference Range Interpretation Comments Basophils (test code = 0.3 See_Comment [Aut omated message] The Basophils) system which ge nerated this result tra nsmitted reference range : <=1.0. The reference r qi was not used to int erpret this result as normal/abnormal . [place] 227981-09-11 07:38:00 Test Item Value Reference Range Interpretation Comments Neutrophils # (test code = Neutrophils 5.5 1.5-8.1 #) [place] 227981-09-11 07:38:00 Test Item Value Reference Range Interpretation Comments Lymphocytes # (test code = Lymphocytes 2.1 1.0-5.5 #) [place] 227981-09-11 07:38:00 Test Item Value Reference Range Interpretation Comments Monocytes # (test code 1.0 See_Comment [Aut omated message] The = Monocytes #) system which generated this result tra nsmitted reference range : <=0.8. The reference r qi was not used to int erpret this result as normal/abnormal . [facility]EqfzekbHDNQORGDIF0198-42-13 07:38:00 Test Item Value Reference Range Interpretation Comments Eosinophils # (test code 0.1 See_Comment [A utomated message] The = Eosinophils #) system whic h generated this result tra nsmitted reference range : <=0.5. The reference r qi was not used to int erpret this result as normal/abnormal . [facility] CampusYfozjsbUMBOTWRSSI3649-96-84 07:38:00 Test Item Value Reference Range Interpretation Comments WBC X 10x3 (test code = WBC X 10x3) 8.7 3.7-10.4 [facility] CampusYtwshasBEPAETONBW6046-00-94 07:38:00 Test Item Value Reference Range Interpretation Comments RBC X 10x6 (test code = RBC X 10x6) 2.99 4.70-6.10 [facility] CampusSmnbgomQNIWDXEHEG3756-05-52 07:38:00 Test Item Value Reference Range Interpretation Comments Hgb (test code = Hgb) 9.7 14.0-18.0 [facility] CampusLaqbjrdWPFCNAIZFJ8813-58-53 07:38:00 Test Item Value Reference Range Interpretation Comments Hct (test code = Hct) 28.3 42.0-54.0 [place] 227981-09-11 07:38:00 Test Item Value Reference Range Interpretation Comments MCV (test code = MCV) 94.7 80.0-94.0 [place] 227981-09-11 07:38:00 Test Item Value Reference Range Interpretation Comments MCH (test code = MCH) 32.3 pg 27.0-31.0 [place] 227981-09-11 07:38:00 Test Item Value Reference Range Interpretation Comments MCHC (test code = MCHC) 34.1 32.0-36.0 [place] 227981-09-11 07:38:00 Test Item Value Reference Range Interpretation Comments RDW (test code = RDW) 13.5 11.5-14.5 [facility] CampusWihetvvOSKLDSARDK5264-45-22 07:38:00 Test Item Value Reference Range Interpretation Comments Platelet (test code = Platelet) 116 133-450 [facility] CampusSyxvnszMMVRLZRDCQ7888-74-67 07:38:00 Test Item Value Reference Range Interpretation Comments MPV (test code = MPV) 9.8 7.4-10.4 [facility]2021-09-11 07:38:00 Test Item Value Reference Range Interpretation Comments Ca Ion WB (test code = Ca Ion WB) 1.15 1.05-1.25 [facility]2021-09-11 07:38:00 Test Item Value Reference Range Interpretation Comments Ca Norm WB (test code = Ca Norm WB) 1.15 1.05-1.[address] [facility]FKPRJBECUNXV5484-[facility]-12 21:20:00 Test Item Value Reference Range Interpretation Comments Potassium Lvl (test code = Potassium 3.8 3.5-5.1 Lvl) [facility]2021-09-10 07:51:00 Test Item Value Reference Range Interpretation Comments Glucose Lvl (test code = Glucose Lvl) 178 70-99 [facility]2021-09-10 07:51:00 Test Item Value Reference Range Interpretation Comments BUN (test code = BUN) 20 7-22 [facility]2021-09-10 07:51:00 Test Item Value Reference Range Interpretation Comments Creatinine Lvl (test code = Creatinine 0.90 0.50-1.40 Lvl) [facility]2021-09-10 07:51:00 Test Item Value Reference Range Interpretation Comments Sodium Lvl (test code = Sodium Lvl) 142 135-145 [facility]2021-09-10 07:51:00 Test Item Value Reference Range Interpretation Comments Chloride Lvl (test code = Chloride Lvl) 109 95-109 [facility]2021-09-10 07:51:00 Test Item Value Reference Range Interpretation Comments CO2 (test code = CO2) 26 24-32 [facility]2021-09-10 07:51:00 Test Item Value Reference Range Interpretation Comments AGAP (test code = AGAP) 11.3 10.0-20.0 [facility]2021-09-10 07:51:00 Test Item Value Reference Range Interpretation Comments Calcium Lvl (test code = Calcium Lvl) 8.3 8.5-10.5 [place] 159351-09-10 07:51:00 Test Item Value Reference Range Interpretation Comments eGFR (test code = eGFR) 91 [place] 159351-09-10 07:51:00 Test Item Value Reference Range Interpretation Comments Magnesium Lvl (test code = Magnesium 2.7 1.8-2.4 Lvl) [place] 159351-09-10 07:51:00 Test Item Value Reference Range Interpretation Comments Phosphorus (test code = Phosphorus) 3.0 2.5-4.5 [place] 227981-09-10 07:51:00 Test Item Value Reference Range Interpretation Comments WBC X 10x3 (test code = WBC X 10x3) 8.9 3.7-10.4 [place] 227981-09-10 07:51:00 Test Item Value Reference Range Interpretation Comments RBC X 10x6 (test code = RBC X 10x6) 3.03 4.70-6.10 [place] 227981-09-10 07:51:00 Test Item Value Reference Range Interpretation Comments Hgb (test code = Hgb) 9.8 14.0-18.0 [place] 227981-09-10 07:51:00 Test Item Value Reference Range Interpretation Comments Hct (test code = Hct) 28.9 42.0-54.0 [place] 227981-09-10 07:51:00 Test Item Value Reference Range Interpretation Comments MCV (test code = MCV) 95.2 80.0-94.0 [place] [address]-09-10 07:51:00 Test Item Value Reference Range Interpretation Comments MCH (test code = MCH) 32.3 pg 27.0-31.0 [place] [address]-09-10 07:51:00 Test Item Value Reference Range Interpretation Comments MCHC (test code = MCHC) 33.9 32.0-36.0 [place] [address]-09-10 07:51:00 Test Item Value Reference Range Interpretation Comments RDW (test code = RDW) 13.5 11.5-14.5 [place] 227981-09-10 07:51:00 Test Item Value Reference Range Interpretation Comments Platelet (test code = Platelet) 99 133-450 [facility] CampusCkrnklwHDSERAXWHT4091-91-99 07:51:00 Test Item Value Reference Range Interpretation Comments MPV (test code = MPV) 9.9 7.4-10.4 [place] 227981-09-10 07:51:00 Test Item Value Reference Range Interpretation Comments Segs (test code = Segs) 69.9 45.0-75.0 [place] 227981-09-10 07:51:00 Test Item Value Reference Range Interpretation Comments Lymphocytes (test code = Lymphocytes) 16.6 20.0-40.0 [place] 227981-09-10 07:51:00 Test Item Value Reference Range Interpretation Comments Monocytes (test code = Monocytes) 13.4 2.0-12.0 [facility] CampusUvszjveRVBPUPWSZW8169-35-50 07:51:00 Test Item Value Reference Range Interpretation Comments Basophils (test code = 0.1 See_Comment [Aut omated message] The Basophils) system which ge nerated this result tra nsmitted reference range : <=1.0. The reference r qi was not used to int erpret this result as normal/abnormal . [facility] CampusDgscmfsEXUJAYGVSR7342-36-13 07:51:00 Test Item Value Reference Range Interpretation Comments Neutrophils # (test code = Neutrophils 6.2 1.5-8.1 #) [facility] CampusAzftghfDQCLAVRWQZ5171-04-32 07:51:00 Test Item Value Reference Range Interpretation Comments Lymphocytes # (test code = Lymphocytes 1.5 1.0-5.5 #) [place] 227981-09-10 07:51:00 Test Item Value Reference Range Interpretation Comments Monocytes # (test code 1.2 See_Comment [Aut omated message] The = Monocytes #) system which generated this result tra nsmitted reference range : <=0.8. The reference r qi was not used to int erpret this result as normal/abnormal . [facility] KBXGBDC7190-60-08 07:51:00 Test Item Value Reference Range Interpretation Comments Ca Ion WB (test code = Ca Ion WB) 1.21 1.05-1.25 [place] 331931-09-10 07:51:00 Test Item Value Reference Range Interpretation Comments Ca Norm WB (test code = Ca Norm WB) 1.19 1.05-1.25 [facility]2021-09-10 02:59:00 Test Item Value Reference Range Interpretation Comments Lactic Acid Lvl (test code = Lactic 1.2 0.5-2.2 Acid Lvl) [place] 159351-09-09 20:42:00 Test Item Value Reference Range Interpretation Comments Lactic Acid Lvl (test code = Lactic 3.4 0.5-2.2 Acid Lvl) [place] 159351-09-09 14:34:00 Test Item Value Reference Range Interpretation Comments Lactic Acid Lvl (test code = Lactic 6.8 0.5-2.2 Acid Lvl) [place] 159351-09-09 14:34:00 Test Item Value Reference Range Interpretation Comments Phosphorus (test code = Phosphorus) 4.6 2.5-4.5 [place] 227981-09-09 14:34:00 Test Item Value Reference Range Interpretation Comments Segs (test code = Segs) 83.9 45.0-75.0 [place] 227981-09-09 14:34:00 Test Item Value Reference Range Interpretation Comments Lymphocytes (test code = Lymphocytes) 4.4 20.0-40.0 [place] 227981-09-09 14:34:00 Test Item Value Reference Range Interpretation Comments Monocytes (test code = Monocytes) 11.5 2.0-12.0 [place] 227981-09-09 14:34:00 Test Item Value Reference Range Interpretation Comments Basophils (test code = 0.2 See_Comment [Aut omated message] The Basophils) system which ge nerated this result tra nsmitted reference range : <=1.0. The reference r qi was not used to int erpret this result as normal/abnormal . [place] 227981-09-09 14:34:00 Test Item Value Reference Range Interpretation Comments Neutrophils # (test code = Neutrophils 12.6 1.5-8.1 #) [place] 227981-09-09 14:34:00 Test Item Value Reference Range Interpretation Comments Lymphocytes # (test code = Lymphocytes 0.7 1.0-5.5 #) [place] 227981-09-09 14:34:00 Test Item Value Reference Range Interpretation Comments Monocytes # (test code 1.7 See_Comment [Aut omated message] The = Monocytes #) system which generated this result tra nsmitted reference range : <=0.8. The reference r qi was not used to int erpret this result as normal/abnormal . [facility]2021-09-09 14:34:00 Test Item Value Reference Range Interpretation Comments Ca Ion WB (test code = Ca Ion WB) 1.19 1.05-1.25 [facility] [id number] 14:34:00 Test Item Value Reference Range Interpretation Comments Ca Norm WB (test code = Ca Norm WB) 1.14 1.05-1.25 [facility] CampusNuxqfmjQVDGBAMPHI4619-59-07 07:44:00 Test Item Value Reference Range Interpretation Comments POC Activated Clotting Time (test code 154 s = POC Activated Clotting Time) [facility] [id number] 07:19:00 Test Item Value Reference Range Interpretation Comments Total Protein (test code = Total 6.1 6.4-8.4 Protein) [facility] [id number] 07:19:00 Test Item Value Reference Range Interpretation Comments Albumin Lvl (test code = Albumin Lvl) 3.9 3.5-5.0 [facility] [id number] 07:19:00 Test Item Value Reference Range Interpretation Comments ALT (test code = ALT) 38 See_Comment [Auto mated message] The system which ge nerated this result transmit miriam reference range : <=65. The reference range was not used to interpr et this result as phillip l/abnormal. [facility] [id number] 07:19:00 Test Item Value Reference Range Interpretation Comments AST (test code = AST) 61 See_Comment [Auto mated message] The system which ge nerated this result transmit miriam reference range : <=37. The reference range was not used to interpr et this result as phillip l/abnormal. [facility] [id number] 07:19:00 Test Item Value Reference Range Interpretation Comments Alk Phos (test code = Alk Phos) 33 39-136 [facility] [id number] 07:19:00 Test Item Value Reference Range Interpretation Comments Bili Total (test code = Bili Total) 1.4 0.2-1.3 [place] 159351-09-09 07:19:00 Test Item Value Reference Range Interpretation Comments B/C Ratio (test code = B/C Ratio) 18 1 6-25 [place] 159351-09-09 07:19:00 Test Item Value Reference Range Interpretation Comments Globulin (test code = Globulin) 2.2 2.7-4.2 [place] 159351-09-09 07:19:00 Test Item Value Reference Range Interpretation Comments A/G Ratio (test code = A/G Ratio) 1.8 1 0.7-1.6 [place] 227981-09-09 07:19:00 Test Item Value Reference Range Interpretation Comments PT (test code = PT) 16.4 s 12.0-14.7 [place] 227981-09-09 07:19:00 Test Item Value Reference Range Interpretation Comments INR (test code = INR) 1.35 1 0.85-1.17 [place] 227981-09-09 01:01:00 Test Item Value Reference Range Interpretation Comments PTT (test code = PTT) 33.1 s 22.9-35.8 [place] 227981-09-09 01:01:00 Test Item Value Reference Range Interpretation Comments PT (test code = PT) 17.2 s 12.0-14.7 [place] [address]-09-09 01:01:00 Test Item Value Reference Range Interpretation Comments INR (test code = INR) 1.44 1 0.85-1.17 [place] 227981-09-09 01:01:00 Test Item Value Reference Range Interpretation Comments RBC Morph (test code = Normal (07/24/21 8:01 PM) RBC Morph) [facility]OcsgmsrMEWDXQHICT5949-63-50 01:01:00 Test Item Value Reference Range Interpretation Comments Plt Morph (test code = Normal (07/24/21 8:01 PM) Plt Morph) [facility] CampusDdudhcnMUENXKUTAL5031-76-60 01:01:00 Test Item Value Reference Range Interpretation Comments Basophils # (test code 0.2 See_Comment [Aut omated message] The = Basophils #) system which generated this result tra nsmitted reference range : <=0.2. The reference r qi was not used to int erpret this result as normal/abnormal . [facility]2021-09-08 20:48:00 Test Item Value Reference Range Interpretation Comments Total Protein (test code = Total 5.9 6.4-8.4 Protein) [facility]2021-09-08 20:48:00 Test Item Value Reference Range Interpretation Comments Albumin Lvl (test code = Albumin Lvl) 3.4 3.5-5.0 [place] 159351-09-08 20:48:00 Test Item Value Reference Range Interpretation Comments ALT (test code = ALT) 49 See_Comment [Auto mated message] The system which ge nerated this result transmit miriam reference range : <=65. The reference range was not used to interpr et this result as phillip l/abnormal. [facility]2021-09-08 20:48:00 Test Item Value Reference Range Interpretation Comments AST (test code = AST) 78 See_Comment [Auto mated message] The system which ge nerated this result transmit miriam reference range : <=37. The reference range was not used to interpr et this result as phillip l/abnormal. [facility]2021-09-08 20:48:00 Test Item Value Reference Range Interpretation Comments Alk Phos (test code = Alk Phos) 42 39-136 [facility]2021-09-08 20:48:00 Test Item Value Reference Range Interpretation Comments Bili Total (test code = Bili Total) 2.1 0.2-1.3 [place] 159351-09-08 20:48:00 Test Item Value Reference Range Interpretation Comments B/C Ratio (test code = B/C Ratio) 17 1 6-25 [place] 159351-09-08 20:48:00 Test Item Value Reference Range Interpretation Comments Globulin (test code = Globulin) 2.5 2.7-4.2 [place] 159351-09-08 20:48:00 Test Item Value Reference Range Interpretation Comments A/G Ratio (test code = A/G Ratio) 1.4 1 0.7-1.6 [facility] CampusUkbzbixVLLXMAWQTB6525-01-31 20:44:00 Test Item Value Reference Range Interpretation Comments PTT (test code = PTT) 29.3 s 22.9-35.8 [facility] ClareGrpwdnrVERPRHRRAF5318-85-35 20:44:00 Test Item Value Reference Range Interpretation Comments PT (test code = PT) 17.4 s 12.0-14.7 [facility] 20:44:00 Test Item Value Reference Range Interpretation Comments INR (test code = INR) 1.46 1 0.85-1.17 [facility]BsflfcaXTRBHBCXVD8266-78-43 20:44:00 Test Item Value Reference Range Interpretation Comments RBC Morph (test code = Normal (07/24/21 3:44 PM) RBC Morph) [facility] ClareJbckgnhIJKUXBLQRN9789-09-13 20:44:00 Test Item Value Reference Range Interpretation Comments Plt Morph (test code = Normal (07/24/21 3:44 PM) Plt Morph) [facility]JjrjgskLTPEQNLCLN6654-61-91 20:44:00 Test Item Value Reference Range Interpretation Comments Eosinophils (test code = 0.2 See_Comment [A utomated message] The Eosinophils) system which ge nerated this result tra nsmitted reference range : <=4.0. The reference r qi was not used to int erpret this result as normal/abnormal . [facility]XongezqZFFQYFLWUQ5174-56-40 20:44:00 Test Item Value Reference Range Interpretation Comments Basophils # (test code 0.1 See_Comment [Aut omated message] The = Basophils #) system which generated this result tra nsmitted reference range : <=0.2. The reference r qi was not used to int erpret this result as normal/abnormal . [facility] [employer] [id number] 19:21:00 Test Item Value Reference Range Interpretation Comments FFP product (test code Product available = FFP product) (07/24/21 2:21 PM) [facility] CenterTopS[facility] ClothesBACTERIAL - [id number] 14:50:00 Test Item Value Reference Range Interpretation Comments MRSA by PCR (test Negative (07/23/21 9:50 code = MRSA by PCR) AM) [facility] [place] [id number] 14:50:00 Test Item Value Reference Range Interpretation Comments ABO/Rh (test code = ABO/Rh) A POS [facility] [place] [id number] 14:50:00 Test Item Value Reference Range Interpretation Comments Antibody Scrn (test Negative (07/23/21 9:50 code = Antibody Scrn) AM) [facility] ClareBhnrlueFRYPMYEREF2407-32-66 14:50:00 Test Item Value Reference Range Interpretation Comments PTT (test code = PTT) 31.6 s 22.9-35.8 [facility] CampusIdiodgeHRMMDXHKTP1855-07-42 14:50:00 Test Item Value Reference Range Interpretation Comments Eosinophils (test code = 2.1 See_Comment [A utomated message] The Eosinophils) system which ge nerated this result tra nsmitted reference range : <=4.0. The reference r qi was not used to int erpret this result as normal/abnormal . [facility] CampusRjmxaevXREUUFFYCZ2567-70-44 14:50:00 Test Item Value Reference Range Interpretation Comments Eosinophils # (test code 0.1 See_Comment [A utomated message] The = Eosinophils #) system whic h generated this result tra nsmitted reference range : <=0.5. The reference r qi was not used to int erpret this result as normal/abnormal . [facility]67[facility] 14:50:00 Test Item Value Reference Range Interpretation Comments Trig (test code = Trig) 118 [facility]FnodnwcQEWJGL5046-79-53 14:50:00 Test Item Value Reference Range Interpretation Comments Chol (test code = Chol) 116 [facility] HospitalSdracopDORGBC6638-49-09 14:50:00 Test Item Value Reference Range Interpretation Comments HDL (test code = HDL) 36 [facility] HospitalQhttpvaUONNWG9252-35-43 14:50:00 Test Item Value Reference Range Interpretation Comments CHD Risk (test code = CHD Risk) 3.22 1 4.00-7.30 [facility] HospitalWobalkiRJCICP2150-65-73 14:50:00 Test Item Value Reference Range Interpretation Comments LDL (Calculated) (test code = LDL 56 (Calculated)) [facility] HospitalTseqcmfFZEFNG9536-75-88 14:50:00 Test Item Value Reference Range Interpretation Comments VLDL (test code = VLDL) 24 [facility] MGYIFANRJ0283-65-97 14:50:00 Test Item Value Reference Range Interpretation Comments Hgb A1C (test code = Hgb A1C) 7.2 [facility] FZVWYMI7695-88-76 14:47:00 Test Item Value Reference Range Interpretation Comments RBC product (test code Product available = RBC product) (07/23/21 9:47 AM) [facility] HRKAPRG7297-52-14 14:47:00 Test Item Value Reference Range Interpretation Comments Platelet product (test Product available code = Platelet (07/23/21 9:47 AM) product) [facility] BANK GTGKTAH3757-28-01 14:47:00 Test Item Value Reference Range Interpretation Comments FFP product (test code Product available = FFP product) (07/23/21 9:47 AM) [facility]CnhpfmjLTVRCCRHWJ6979-28-14 13:23:00 Test Item Value Reference Range Interpretation Comments Coronavirus (COVID-19) Not Detected (07/23/21 JANNA (test code = 8:23 AM) Coronavirus (COVID-19) JANNA) [facility] HospitalBre[facility] rgnu3321-28-93 05:00:00SEE IMAGELINKInterface, [facility] Imaging Results - 07/23/2021 12:02 PM CDT SEE IMAGELINKUT [facility] NNDBVACAKIDK8914-09-53 15:47:00 Test Item Value Reference Range Interpretation Comments POC Sodium (test code = POC Sodium) 141 135-[address] [facility] HospitalOakdzwrGWQLHOETKJRU1148-65-85 15:47:00 Test Item Value Reference Range Interpretation Comments POC Potassium (test code = POC 4.1 3.5-5.1 Potassium) [facility] HospitalMyhrnjwQIBWUKIWVZDE5020-33-78 15:47:00 Test Item Value Reference Range Interpretation Comments POC Chloride (test code = POC Chloride) 99 95-109 [facility] HospitalPtrwulsCSDQPORICPIH9357-49-45 15:47:00 Test Item Value Reference Range Interpretation Comments POC Carbon Dioxide (test code = POC 28 24-32 Carbon Dioxide) [facility] HospitalVaprpyuKRKSGGYJTLAO5020-63-12 15:47:00 Test Item Value Reference Range Interpretation Comments POC BUN (test code = POC BUN) 25 7-[address] [facility] HospitalQcmmtikEUEIWZTPJBWF9303-30-12 15:47:00 Test Item Value Reference Range Interpretation Comments POC Creatinine (test code = POC 1.1 0.5-1.4 Creatinine) [facility] HospitalQgsijrgVOETXMOMBVEP4327-15-77 15:47:00 Test Item Value Reference Range Interpretation Comments POC Glucose (test code = POC Glucose) 206 70-99 [place] 447841-07-21 15:47:00 Test Item Value Reference Range Interpretation Comments POC Ion Ca (test code = POC Ion Ca) 1.14 1.05-1.25 [place] 447841-07-21 15:47:00 Test Item Value Reference Range Interpretation Comments POC Hemoglobin (test code = POC 15.6 14.0-18.0 Hemoglobin) [place] 447841-07-21 15:47:00 Test Item Value Reference Range Interpretation Comments POC Hematocrit (test code = POC 46.0 42.0-54.0 Hematocrit) [place] 447841-07-21 15:47:00 Test Item Value Reference Range Interpretation Comments POC AGAP (test code = POC AGAP) 19.0 10.0-20.0 [place] 447841-07-21 15:47:00 Test Item Value Reference Range Interpretation Comments eGFR (test code = eGFR) 72 [place] 447841-07-21 15:47:00 Test Item Value Reference Range Interpretation Comments POC Disclaimer (test code See Note = POC Disclaimer) *NA*(06/05/21 10:47 AM) [facility]2021-07-21 15:37:00 Test Item Value Reference Range Interpretation Comments Glucose Lvl (test code = Glucose Lvl) 196 70-99 [facility]2021-07-21 15:37:00 Test Item Value Reference Range Interpretation Comments BUN (test code = BUN) 22 7-22 [facility]2021-07-21 15:37:00 Test Item Value Reference Range Interpretation Comments Creatinine Lvl (test code = Creatinine 1.19 0.50-1.40 Lvl) [place] 159351-07-21 15:37:00 Test Item Value Reference Range Interpretation Comments Sodium Lvl (test code = Sodium Lvl) 138 135-145 [place] 159351-07-21 15:37:00 Test Item Value Reference Range Interpretation Comments Potassium Lvl (test code = Potassium 4.0 3.5-5.1 Lvl) [place] 159351-07-21 15:37:00 Test Item Value Reference Range Interpretation Comments Chloride Lvl (test code = Chloride Lvl) 103 95-109 [place] 159351-07-21 15:37:00 Test Item Value Reference Range Interpretation Comments CO2 (test code = CO2) 28 24-32 [place] 159351-07-21 15:37:00 Test Item Value Reference Range Interpretation Comments Calcium Lvl (test code = Calcium Lvl) 9.2 8.5-10.5 [place] 159351-07-21 15:37:00 Test Item Value Reference Range Interpretation Comments AGAP (test code = AGAP) 11.0 10.0-20.0 [place] 159351-07-21 15:37:00 Test Item Value Reference Range Interpretation Comments eGFR (test code = eGFR) 65 [facility] CampusDzbivmsZSELORTXGI9199-85-26 15:37:00 Test Item Value Reference Range Interpretation Comments WBC (test code = WBC) 7.7 3.7-10.4 [place] 227981-07-21 15:37:00 Test Item Value Reference Range Interpretation Comments RBC (test code = RBC) 4.71 4.70-6.10 [place] 227981-07-21 15:37:00 Test Item Value Reference Range Interpretation Comments Hgb (test code = Hgb) 14.8 14.0-18.0 [place] 227981-07-21 15:37:00 Test Item Value Reference Range Interpretation Comments Hct (test code = Hct) 44.8 42.0-54.0 [place] [address]-07-21 15:37:00 Test Item Value Reference Range Interpretation Comments MCV (test code = MCV) 95.2 80.0-94.0 [place] [address]-07-21 15:37:00 Test Item Value Reference Range Interpretation Comments MCH (test code = MCH) 31.3 pg 27.0-31.0 [place] [address]-07-21 15:37:00 Test Item Value Reference Range Interpretation Comments MCHC (test code = MCHC) 32.9 32.0-36.0 [place] 227981-07-21 15:37:00 Test Item Value Reference Range Interpretation Comments RDW (test code = RDW) 13.3 11.5-14.5 [place] 227981-07-21 15:37:00 Test Item Value Reference Range Interpretation Comments Platelet (test code = Platelet) 220 133-450 [facility] CampusQmubihlSFLTULEOYW1062-45-45 15:37:00 Test Item Value Reference Range Interpretation Comments MPV (test code = MPV) 9.3 7.4-10.4 [place] 227981-07-21 15:37:00 Test Item Value Reference Range Interpretation Comments PT (test code = PT) 13.4 s 12.0-14.7 [facility] CampusVdpjyklQRCMHGWWXF5149-05-14 15:37:00 Test Item Value Reference Range Interpretation Comments INR (test code = INR) 1.03 1 0.85-1.17 [place] 227981-07-21 15:37:00 Test Item Value Reference Range Interpretation Comments PTT (test code = PTT) 30.0 s 22.9-35.8 [place] 227981-07-21 15:37:00 Test Item Value Reference Range Interpretation Comments Segs (test code = Segs) 55.1 45.0-75.0 [place] 227981-07-21 15:37:00 Test Item Value Reference Range Interpretation Comments Lymphocytes (test code = Lymphocytes) 28.2 20.0-40.0 [facility] CampusCzdoeldHNZBYOVTQI9070-16-00 15:37:00 Test Item Value Reference Range Interpretation Comments Monocytes (test code = Monocytes) 10.6 2.0-12.0 [facility] CampusBfjqshhLCSBOHPVKJ7860-87-53 15:37:00 Test Item Value Reference Range Interpretation Comments Eosinophils (test code = 5.5 See_Comment [A utomated message] The Eosinophils) system which ge nerated this result tra nsmitted reference range : <=4.0. The reference r qi was not used to int erpret this result as normal/abnormal . [facility] CampusSremhjyXYMYENERUW9595-02-07 15:37:00 Test Item Value Reference Range Interpretation Comments Basophils (test code = 0.6 See_Comment [Aut omated message] The Basophils) system which ge nerated this result tra nsmitted reference range : <=1.0. The reference r qi was not used to int erpret this result as normal/abnormal . [facility] CampusJqmrtzhQMWCXCMGAN3243-13-19 15:37:00 Test Item Value Reference Range Interpretation Comments Neutrophils # (test code = Neutrophils 4.3 1.5-8.1 #) [place] 227981-07-21 15:37:00 Test Item Value Reference Range Interpretation Comments Lymphocytes # (test code = Lymphocytes 2.2 1.0-5.5 #) [place] 227981-07-21 15:37:00 Test Item Value Reference Range Interpretation Comments Monocytes # (test code 0.8 See_Comment [Aut omated message] The = Monocytes #) system which generated this result tra nsmitted reference range : <=0.8. The reference r qi was not used to int erpret this result as normal/abnormal . [facility] CampusIwmcapxNWOKSMDCZR7469-05-94 15:37:00 Test Item Value Reference Range Interpretation Comments Eosinophils # (test code 0.4 See_Comment [A utomated message] The = Eosinophils #) system whic h generated this result tra nsmitted reference range : <=0.5. The reference r qi was not used to int erpret this result as normal/abnormal . [facility] CampusBdmukgjCJNOOIQBGM0584-09-10 15:37:00 Test Item Value Reference Range Interpretation Comments Basophils # (test code 0.1 See_Comment [Aut omated message] The = Basophils #) system which generated this result tra nsmitted reference range : <=0.2. The reference r qi was not used to int erpret this result as normal/abnormal . [facility] PXMGO7041-50-68 22:03:00 Test Item Value Reference Range Interpretation Comments POC Creatinine (test code = POC 1.0 0.5-1.4 Creatinine) [facility] DKAYI5478-70-84 22:03:00 Test Item Value Reference Range Interpretation Comments eGFR (test code = eGFR) 80 [place] 447841-06-03 13:28:00 Test Item Value Reference Range Interpretation Comments POC Ion Ca (test code = POC Ion Ca) 1.28 1.05-1.25 [place] 447841-06-03 13:28:00 Test Item Value Reference Range Interpretation Comments POC Hemoglobin (test code = POC 14.3 14.0-18.0 Hemoglobin) [place] 447841-06-03 13:28:00 Test Item Value Reference Range Interpretation Comments POC Hematocrit (test code = POC 42.0 42.0-54.0 Hematocrit) [place] 447841-06-03 13:28:00 Test Item Value Reference Range Interpretation Comments POC AGAP (test code = POC AGAP) 14.0 10.0-20.0 [facility]WclidpdXNVVVYXYBRLB1591-30-91 13:28:00 Test Item Value Reference Range Interpretation Comments eGFR (test code = eGFR) 72 [facility] HospitalFuezetnFISEWUYIUBGA0306-27-91 13:28:00 Test Item Value Reference Range Interpretation Comments POC Disclaimer (test code See Note *NA*(04/18/21 = POC Disclaimer) 8:28 AM) [facility] HospitalGtgecfhXSMWOPRICLIA9331-80-17 13:28:00 Test Item Value Reference Range Interpretation Comments POC Sodium (test code = POC Sodium) 140 135-145 [place] 447841-06-03 13:28:00 Test Item Value Reference Range Interpretation Comments POC Potassium (test code = POC 4.2 3.5-5.1 Potassium) [facility] HospitalNsbytlqPKSMZUFIMRLC7135-41-78 13:28:00 Test Item Value Reference Range Interpretation Comments POC Chloride (test code = POC Chloride) 99 95-109 [facility] HospitalWmelrcrJCMMQWZOLCOM8836-66-59 13:28:00 Test Item Value Reference Range Interpretation Comments POC Carbon Dioxide (test code = POC 32 24-32 Carbon Dioxide) [facility] HospitalUpwuzmwEAWUAAEUQUDJ2944-48-92 13:28:00 Test Item Value Reference Range Interpretation Comments POC BUN (test code = POC BUN) 24 7-22 [facility] HospitalAeaqfbcWWINFGUVTHYX6291-98-81 13:28:00 Test Item Value Reference Range Interpretation Comments POC Creatinine (test code = POC 1.1 0.5-1.4 Creatinine) [facility] HospitalPbwjaqvKTGNVQRPHPWZ9280-01-22 13:28:00 Test Item Value Reference Range Interpretation Comments POC Glucose (test code = POC Glucose) 165 70-99 [facility]China[facility] PYSGH0378-41-76 12:54:00 Test Item Value Reference Range Interpretation Comments Glucose Lvl (test code = Glucose Lvl) 158 70-99 [facility] CPMML1006-14-27 12:54:00 Test Item Value Reference Range Interpretation Comments BUN (test code = BUN) 20 7-22 [facility]2021-06-03 12:54:00 Test Item Value Reference Range Interpretation Comments Creatinine Lvl (test code = Creatinine 1.08 0.50-1.40 Lvl) [place] 159351-06-03 12:54:00 Test Item Value Reference Range Interpretation Comments Sodium Lvl (test code = Sodium Lvl) 138 135-145 [place] 159351-06-03 12:54:00 Test Item Value Reference Range Interpretation Comments Potassium Lvl (test code = Potassium 4.1 3.5-5.1 Lvl) [place] 159351-06-03 12:54:00 Test Item Value Reference Range Interpretation Comments Chloride Lvl (test code = Chloride Lvl) 104 95-109 [place] 159351-06-03 12:54:00 Test Item Value Reference Range Interpretation Comments CO2 (test code = CO2) 29 24-32 [place] 159351-06-03 12:54:00 Test Item Value Reference Range Interpretation Comments Calcium Lvl (test code = Calcium Lvl) 9.3 8.5-10.5 [place] 159351-06-03 12:54:00 Test Item Value Reference Range Interpretation Comments AGAP (test code = AGAP) 9.1 10.0-20.0 [place] 159351-06-03 12:54:00 Test Item Value Reference Range Interpretation Comments eGFR (test code = eGFR) 73 [place] 227981-06-03 12:54:00 Test Item Value Reference Range Interpretation Comments WBC (test code = WBC) 6.9 3.7-10.4 [place] [address]-06-03 12:54:00 Test Item Value Reference Range Interpretation Comments RBC (test code = RBC) 4.52 4.70-6.10 [place] [address]-06-03 12:54:00 Test Item Value Reference Range Interpretation Comments Hgb (test code = Hgb) 14.3 14.0-18.0 [place] [address]-06-03 12:54:00 Test Item Value Reference Range Interpretation Comments Hct (test code = Hct) 41.7 42.0-54.0 [place] [address]-06-03 12:54:00 Test Item Value Reference Range Interpretation Comments MCV (test code = MCV) 92.4 80.0-94.0 [place] [address]-06-03 12:54:00 Test Item Value Reference Range Interpretation Comments MCH (test code = MCH) 31.5 pg 27.0-31.0 [place] 227981-06-03 12:54:00 Test Item Value Reference Range Interpretation Comments MCHC (test code = MCHC) 34.2 32.0-36.0 [place] 227981-06-03 12:54:00 Test Item Value Reference Range Interpretation Comments RDW (test code = RDW) 13.6 11.5-14.5 [place] 227981-06-03 12:54:00 Test Item Value Reference Range Interpretation Comments Platelet (test code = Platelet) 169 133-450 [facility] CampusIuiojorMGGKYWITDX9698-67-54 12:54:00 Test Item Value Reference Range Interpretation Comments MPV (test code = MPV) 9.6 7.4-10.4 [place] 227981-06-03 12:54:00 Test Item Value Reference Range Interpretation Comments PTT (test code = PTT) 35.1 s 22.9-35.8 [place] [address]-06-03 12:54:00 Test Item Value Reference Range Interpretation Comments PT (test code = PT) 16.2 s 12.0-14.7 [place] [address]-06-03 12:54:00 Test Item Value Reference Range Interpretation Comments INR (test code = INR) 1.33 1 0.85-1.17 [place] [address]-06-03 12:54:00 Test Item Value Reference Range Interpretation Comments Segs (test code = Segs) 50.4 45.0-75.0 [place] 227981-06-03 12:54:00 Test Item Value Reference Range Interpretation Comments Lymphocytes (test code = Lymphocytes) 32.1 20.0-40.0 [place] [address]-06-03 12:54:00 Test Item Value Reference Range Interpretation Comments Monocytes (test code = Monocytes) 13.2 2.0-12.0 [place] [address]-06-03 12:54:00 Test Item Value Reference Range Interpretation Comments Eosinophils (test code = 3.5 See_Comment [A utomated message] The Eosinophils) system which ge nerated this result tra nsmitted reference range : <=4.0. The reference r qi was not used to int erpret this result as normal/abnormal . [facility] CampusCavficqXCBUAQJBXK3448-24-76 12:54:00 Test Item Value Reference Range Interpretation Comments Basophils (test code = 0.8 See_Comment [Aut omated message] The Basophils) system which ge nerated this result tra nsmitted reference range : <=1.0. The reference r qi was not used to int erpret this result as normal/abnormal . [facility] CampusYabinldKTPDBXHGXZ4462-91-57 12:54:00 Test Item Value Reference Range Interpretation Comments Neutrophils # (test code = Neutrophils 3.5 1.5-8.1 #) [facility] CampusRgeugngTRQOUODVWA5310-52-91 12:54:00 Test Item Value Reference Range Interpretation Comments Lymphocytes # (test code = Lymphocytes 2.2 1.0-5.5 #) [facility] CampusYifinpmDKVGCRYSCU7596-09-56 12:54:00 Test Item Value Reference Range Interpretation Comments Monocytes # (test code 0.9 See_Comment [Aut omated message] The = Monocytes #) system which generated this result tra nsmitted reference range : <=0.8. The reference r qi was not used to int erpret this result as normal/abnormal . [facility] CampusLqkyaylOGBVNFDSIU0644-61-91 12:54:00 Test Item Value Reference Range Interpretation Comments Eosinophils # (test code 0.2 See_Comment [A utomated message] The = Eosinophils #) system whic h generated this result tra nsmitted reference range : <=0.5. The reference r qi was not used to int erpret this result as normal/abnormal . [facility] CampusKtybjbcBSUMXBZZXC3096-43-76 12:54:00 Test Item Value Reference Range Interpretation Comments Basophils # (test code 0.1 See_Comment [Aut omated message] The = Basophils #) system which generated this result tra nsmitted reference range : <=0.2. The reference r qi was not used to int erpret this result as normal/abnormal . [facility] HospitalPhbgargKAQHZCINKY0371-80-92 18:43:00 Test Item Value Reference Range Interpretation Comments Coronavirus (COVID-19) Not Detected (04/16/21 JANNA (test code = 1:43 PM) Coronavirus (COVID-19) JANNA) [facility] GLUCOSE (AUTOMATED)2020-10-03 22:57:00 Test Item Value Reference Range Interpretation Comments POCT GLU (test code = 233 mg/dL 70-110 H Notifi ed Provider [id number]) Lab Interpretation (test Abnormal code = 31196-9) [facility] GLUCOSE (AUTOMATED)2020-10-03 21:05:00 Test Item Value Reference Range Interpretation Comments POCT GLU (test code = 5287415417) 282 mg/dL 70-110 H Lab Interpretation (test code = Abnormal 74564-0) [facility] GLUCOSE (AUTOMATED)2020-10-03 20:12:00 Test Item Value Reference Range Interpretation Comments POCT GLU (test code = 3135935573) 307 mg/dL 70-110 H Lab Interpretation (test code = Abnormal 67044-8) [facility] GLUCOSE (AUTOMATED)2020-10-03 17:27:00 Test Item Value Reference Range Interpretation Comments POCT GLU (test code = 302 mg/dL 70-110 H Notifi ed Provider [id number]) Lab Interpretation (test Abnormal code = 59254-3) [facility] GLUCOSE (AUTOMATED)2020-10-03 13:41:00 Test Item Value Reference Range Interpretation Comments POCT GLU (test code = 140 mg/dL 70-110 H Notifi ed Provider [id number]) Lab Interpretation (test Abnormal code = 14293-9) [facility]WD7111-97-18 12:14:00 Test Item Value Reference Range Interpretation Comments NT-proBNP (test code 722 pg/mL See_Comment H [Autom ated = [id number]) message] The system which generated this result transmitted reference range : <=125. The reference range was not used to interpret this result as normal/abnormal . KARSON (test code = KARSON) Biotin has been reported to cause a negative bias, interpret results relative to patient's use of biotin. Lab Interpretation Abnormal (test code = 48751-7) [facility] METABOLIC PANEL (NA, K, CL, CO2, GLUCOSE, BUN, CREATININE, CA)2020-10-03 12:01:00 Test Item Value Reference Range Interpretation Comments NA (test code = 135 mmol/L 135-145 0683756919) K (test code = 3.5 mmol/L 3.5-5 9199194998) CL (test code = 102 mmol/L 98-108 9834497672) CO2 TOTAL (test code = 30 mmol/L 23-31 6950905369) AGAP (test code = 2-16 8575988475) BUN (test code = 28 mg/dL 7-23 H 5822197147) GLUCOSE (test code = 140 mg/dL 70-110 H 8585082905) CREATININE (test code = 0.96 mg/dL 0.6-1.25 4647414711) CALCIUM (test code = 8.6 mg/dL 8.6-10.6 2186388658) eGFR Calculation mL/min/1.73m2 (Non-) (test code = 6063614897) eGFR Calculation mL/min/1.73m2 () (test code = 0101709379) KARSON (test code = KARSON) Association of [...] tests). Lab Interpretation Abnormal (test code = 11260-7) [facility] 12[facility]01[facility]00 Test Item Value Reference Range Interpretation Comments MAGNESIUM (test code = 8609733104) 2.2 mg/dL 1.7-2.4 Lab Interpretation (test code = Normal 45431-0) [facility] IYMCXXASGEKNHJ5797-08-17 11:39:00COVID DMT InterpretationInterpretation/Recommendations: Molecular NAAT Test Results [...] a nasopharyngeal sample, there is approximately a [id number] chance that the patient was infected and [...] upon aggregate COVID-19 test results pooled from [facility]. They apply to the following tests offered at [facility] and assume the acceptable specimen type(s) were used:A. Tests for the Identification of SARS-CoV-2 RNA (Molecular NAAT Tests):SARS-CoV-2 PCR assays including [place] Aptima, [place] Fusion, [employer] RealTime, and [facility] [facility] Xpert Xpress. SARS-CoV-2 Rapid ID NOW by the ID NOW assay.? B. Tests for the Identification of SARS-CoV-2 Antibodies: Chemiluminescent immunoassays including Access SARS-CoV-2 IgM (DXI 600), VITROS Dtbt-QXSR-FhP-2 IgG (Vitros 5600 and Vitros 3600), and [employer]ins SARS-CoV-2 IgG ([employer] System). ?These interpretations are autopopulated into [employer] based on computerized algorithms matching an interpretation code to the patient's set of test results, and a clinical pathologist evaluates the comments for accuracy. However, these comments do not consider testing a patient may have had outside of the [facility] system. If results for COVID-19 [...] bronchoalveolar lavage fluid (BAL), tracheal aspirate, etc.). ?[facility] LABORATORY SERVICESCOVID LkdjxkvACWL-GrA-9 Rapid ID NOW (no units) ? ? Date ? Value ? 09/27/2020 ? Not Detected ? [facility]AT[facility] SERVICESUn[facility]2020-10-03 02:18:00 Test Item Value Reference Range Interpretation Comments POCT GLU (test code = 9435347561) 253 mg/dL 70-110 H Lab Interpretation (test code = Abnormal 18815-0) [facility] GLUCOSE (AUTOMATED)2020-10-03 00:29:00 Test Item Value Reference Range Interpretation Comments POCT GLU (test code = 203 mg/dL 70-110 H Notifi ed Provider [id number]) Lab Interpretation (test Abnormal code = 80708-7) [facility] GLUCOSE (AUTOMATED)2020-10-02 20:08:00 Test Item Value Reference Range Interpretation Comments POCT GLU (test code = 8696336407) 207 mg/dL 70-110 H Lab Interpretation (test code = Abnormal 28837-3) [facility] GLUCOSE (AUTOMATED)2020-10-02 16:11:00 Test Item Value Reference Range Interpretation Comments POCT GLU (test code = 4738892533) 230 mg/dL 70-110 H Lab Interpretation (test code = Abnormal 00352-3) [facility] GLUCOSE (AUTOMATED)2020-10-02 14:12:00 Test Item Value Reference Range Interpretation Comments POCT GLU (test code = 165 mg/dL 70-110 H Notifi ed Provider [id number]) Lab Interpretation (test Abnormal code = 06908-3) [facility] METABOLIC PANEL (NA, K, CL, CO2, GLUCOSE, BUN, CREATININE, CA)2020-10-02 13:48:00 Test Item Value Reference Range Interpretation Comments NA (test code = 136 mmol/L 135-145 7706701417) K (test code = 4.0 mmol/L 3.5-5 7246297961) CL (test code = 98 mmol/L 98-108 0120718520) CO2 TOTAL (test code = 31 mmol/L 23-31 4921195382) AGAP (test code = 2-16 2508132629) BUN (test code = 29 mg/dL 7-23 H 5116060878) GLUCOSE (test code = 148 mg/dL 70-110 H 9565111858) CREATININE (test code = 1.11 mg/dL 0.6-1.25 6672856123) CALCIUM (test code = 8.9 mg/dL 8.6-10.6 4077827421) eGFR Calculation mL/min/1.73m2 (Non-) (test code = 6751111858) eGFR Calculation mL/min/1.73m2 () (test code = 2301755822) KARSON (test code = KARSON) Association of [...] tests). Lab Interpretation Abnormal (test code = 52204-0) [facility] Test Item Value Reference Range Interpretation Comments MAGNESIUM (test code = 0238557086) 2.2 mg/dL 1.7-2.4 Lab Interpretation (test code = Normal 93316-7) [facility] GLUCOSE (AUTOMATED)2020-10-02 10:37:00 Test Item Value Reference Range Interpretation Comments POCT GLU (test code = 0423192075) 150 mg/dL 70-110 H Lab Interpretation (test code = Abnormal 37621-4) [facility] GLUCOSE (AUTOMATED)2020-10-02 06:07:00 Test Item Value Reference Range Interpretation Comments POCT GLU (test code = 1105122286) 176 mg/dL 70-110 H Lab Interpretation (test code = Abnormal 30185-0) [facility] GLUCOSE (AUTOMATED)2020-10-02 02:30:00 Test Item Value Reference Range Interpretation Comments POCT GLU (test code = 0828591059) 246 mg/dL 70-110 H Lab Interpretation (test code = Abnormal 67335-0) [facility] GLUCOSE (AUTOMATED)2020-10-01 23:06:00 Test Item Value Reference Range Interpretation Comments POCT GLU (test code = 5795355256) 243 mg/dL 70-110 H Lab Interpretation (test code = Abnormal 54202-0) [facility] [id number] 22:15:07Impression: 1) 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 Images interpreted by ?Dr Marya hernández Final interpretation by Reji Randall MD. Resting [...] ESV = 180 mL; EF = 21%. [facility], Radiant Results Inft User - 10/01/2020 4:16 [...] by Dr Rey interpretation by Reji Randall MD.[facility] GLUCOSE (AUTOMATED)2020-10-01 16:35:00 Test Item Value Reference Range Interpretation Comments POCT GLU (test code = 1449506866) 229 mg/dL 70-110 H Lab Interpretation (test code = Abnormal 76846-0) [facility] GLUCOSE (AUTOMATED)2020-10-01 13:40:00 Test Item Value Reference Range Interpretation Comments POCT GLU (test code = 6601618400) 244 mg/dL 70-110 H Lab Interpretation (test code = Abnormal 77654-9) [facility] METABOLIC PANEL (NA, K, CL, CO2, GLUCOSE, BUN, CREATININE, CA)2020-10-01 12:51:00 Test Item Value Reference Range Interpretation Comments NA (test code = 134 mmol/L 135-145 L 5423824912) K (test code = 3.9 mmol/L 3.5-5 1040431245) CL (test code = 97 mmol/L 98-108 L 4663957082) CO2 TOTAL (test code = 32 mmol/L 23-31 H 7469620121) AGAP (test code = 2-16 5526340374) BUN (test code = 23 mg/dL 7-23 3443383129) GLUCOSE (test code = 237 mg/dL 70-110 H 3106420291) CREATININE (test code = 1.01 mg/dL 0.6-1.25 4332149865) CALCIUM (test code = 8.6 mg/dL 8.6-10.6 6313716433) eGFR Calculation mL/min/1.73m2 (Non-) (test code = 1601388805) eGFR Calculation mL/min/1.73m2 () (test code = 8599787194) KARSON (test code = KARSON) Association of [...] tests). Lab Interpretation Abnormal (test code = 03786-3) [facility] Test Item Value Reference Range Interpretation Comments MAGNESIUM (test code = 9928877064) 1.9 mg/dL 1.7-2.4 Lab Interpretation (test code = Normal 86181-7) [facility] GLUCOSE (AUTOMATED)2020-10-01 10:40:00 Test Item Value Reference Range Interpretation Comments POCT GLU (test code = 6362585612) 230 mg/dL 70-110 H Lab Interpretation (test code = Abnormal 16534-9) [facility] GLUCOSE (AUTOMATED)2020-10-01 06:00:00 Test Item Value Reference Range Interpretation Comments POCT GLU (test code = 2001215950) 281 mg/dL 70-110 H Lab Interpretation (test code = Abnormal 44745-3) [facility] GLUCOSE (AUTOMATED)2020-10-01 01:18:00 Test Item Value Reference Range Interpretation Comments POCT GLU (test code = 5622524962) 201 mg/dL 70-110 H Lab Interpretation (test code = Abnormal 81279-9) [facility] GLUCOSE (AUTOMATED)2020-09-30 22:45:00 Test Item Value Reference Range Interpretation Comments POCT GLU (test code = 1382294617) 239 mg/dL 70-110 H Lab Interpretation (test code = Abnormal 06970-4) [facility] GLUCOSE (AUTOMATED)2020-09-30 18:42:00 Test Item Value Reference Range Interpretation Comments POCT GLU (test code = 305 mg/dL 70-110 H Notifi ed Provider [id number]) Lab Interpretation (test Abnormal code = 01870-3) [facility] GLUCOSE (AUTOMATED)2020-09-30 15:23:00 Test Item Value Reference Range Interpretation Comments POCT GLU (test code = 2455378467) 259 mg/dL 70-110 H Lab Interpretation (test code = Abnormal 47953-1) [facility] METABOLIC PANEL (NA, K, CL, CO2, GLUCOSE, BUN, CREATININE, CA)2020-09-30 11:28:00 Test Item Value Reference Range Interpretation Comments NA (test code = 133 mmol/L 135-145 L 3308044432) K (test code = 4.1 mmol/L 3.5-5 9450119614) CL (test code = 98 mmol/L 98-108 0544028392) CO2 TOTAL (test code = 29 mmol/L 23-31 0663563198) AGAP (test code = 2-16 1610542523) BUN (test code = 23 mg/dL 7-23 2589634170) GLUCOSE (test code = 275 mg/dL 70-110 H 2222349180) CREATININE (test code = 0.91 mg/dL 0.6-1.25 3544450649) CALCIUM (test code = 8.6 mg/dL 8.6-10.6 9917401568) eGFR Calculation mL/min/1.73m2 (Non-) (test code = 1284747014) eGFR Calculation mL/min/1.73m2 () (test code = 7333426578) KARSON (test code = KARSON) Association of [...] tests). Lab Interpretation Abnormal (test code = 50609-0) [facility] 11:28:00 Test Item Value Reference Range Interpretation Comments MAGNESIUM (test code = 9222199235) 1.9 mg/dL 1.7-2.4 Lab Interpretation (test code = Normal 20603-1) [facility] use with Heparin Drip)2020-09-30 11:23:00 Test Item Value Reference Range Interpretation Comments APTT Patient (test code = See_Comment [ Automated message] 3173-2) The system [employer] generated this result transmitted ref erence range: 26 - 36 Seconds. The re ference range was not u sed to interpret this result as normal/abnor mal. Lab Interpretation (test Normal code = 10475-4) [facility]2020-09-30 10:54:00 Test Item Value Reference Range Interpretation Comments POCT GLU (test code = 9081205313) 267 mg/dL 70-110 H Lab Interpretation (test code = Abnormal 72520-4) [facility] GLUCOSE (AUTOMATED)2020-09-30 05:38:00 Test Item Value Reference Range Interpretation Comments POCT GLU (test code = 4871183200) 217 mg/dL 70-110 H Lab Interpretation (test code = Abnormal 97806-4) [facility] GLUCOSE (AUTOMATED)2020-09-30 03:07:00 Test Item Value Reference Range Interpretation Comments POCT GLU (test code = 4894992335) 234 mg/dL 70-110 H Lab Interpretation (test code = Abnormal 78816-3) [facility] GLUCOSE (AUTOMATED)2020-09-30 00:33:00 Test Item Value Reference Range Interpretation Comments POCT GLU (test code = 292 mg/dL 70-110 H Notifi ed Provider [id number]) Lab Interpretation (test Abnormal code = 68282-7) [facility] GLUCOSE (AUTOMATED)2020-09-29 21:54:00 Test Item Value Reference Range Interpretation Comments POCT GLU (test code = 5217244378) 414 mg/dL 70-110 H Lab Interpretation (test code = Abnormal 52996-0) [facility] GLUCOSE (AUTOMATED)2020-09-29 18:31:00 Test Item Value Reference Range Interpretation Comments POCT GLU (test code = 341 mg/dL 70-110 H Notifi ed Provider [id number]) Lab Interpretation (test Abnormal code = 17086-7) [facility] GLUCOSE (AUTOMATED)2020-09-29 14:49:00 Test Item Value Reference Range Interpretation Comments POCT GLU (test code = 1101254068) 146 mg/dL 70-110 H Lab Interpretation (test code = Abnormal 00849-2) [facility] GLUCOSE (AUTOMATED)2020-09-29 11:44:00 Test Item Value Reference Range Interpretation Comments POCT GLU (test code = 1081545540) 139 mg/dL 70-110 H Lab Interpretation (test code = Abnormal 93300-5) [facility]GLYCOSYLATED [facility]EMOGLOBIN (A1C)2020-09-29 09:15:00 Test Item Value Reference Range Interpretation Comments HGB A1C (test code = 4548-4) 8.8 % 4-6 H Lab Interpretation (test code = Abnormal 09277-3) [facility] HospitalTrjarrodn [id number] 08:42:00 Test Item Value Reference Range Interpretation Comments TROPONIN I (test 0.101 ng/mL See_Comment H [Automated code = 0098665773) message] The system which generated this result [...] ? Lab Interpretation Abnormal (test code = 94511-0) [facility] (NA, K, CL, CO2, GLUCOSE, BUN, CREATININE, CA)2020-09-29 08:25:00 Test Item Value Reference Range Interpretation Comments NA (test code = 135 mmol/L 135-145 2633015904) K (test code = 3.9 mmol/L 3.5-5 9771416289) CL (test code = 100 mmol/L 98-108 2556944556) CO2 TOTAL (test code = 32 mmol/L 23-31 H 8623432513) AGAP (test code = 2-16 2579276667) BUN (test code = 17 mg/dL 7-23 3394033264) GLUCOSE (test code = 213 mg/dL 70-110 H 0878255218) CREATININE (test code = 0.76 mg/dL 0.6-1.25 3611793039) CALCIUM (test code = 8.8 mg/dL 8.6-10.6 9480543385) eGFR Calculation mL/min/1.73m2 (Non-) (test code = 3922698163) eGFR Calculation mL/min/1.73m2 () (test code = 7370947309) KARSON (test code = KARSON) Association of [...] tests). Lab Interpretation Abnormal (test code = 04895-8) [facility]2020-11-14 08:25:00 Test Item Value Reference Range Interpretation Comments MAGNESIUM (test code = 9369744049) 2.0 mg/dL 1.7-2.4 Lab Interpretation (test code = Normal 50698-9) [facility] use with Heparin Drip)2020-09-29 08:02:00 Test Item Value Reference Range Interpretation Comments APTT Patient (test code See_Comment H [Au tomated message] = 3173-2) The system [employer] generated this result transmitted ref erence range: 26 - 36 Seconds. The reference range was not used to int erpret this result as normal/abnormal . Lab Interpretation (test Abnormal code = 81696-9) [facility] GLUCOSE (AUTOMATED)2020-09-29 07:46:00 Test Item Value Reference Range Interpretation Comments POCT GLU (test code = 2293735798) 213 mg/dL 70-110 H Lab Interpretation (test code = Abnormal 86154-1) [facility] GLUCOSE (AUTOMATED)2020-09-29 04:38:00 Test Item Value Reference Range Interpretation Comments POCT GLU (test code = 2587250359) 335 mg/dL 70-110 H Lab Interpretation (test code = Abnormal 97125-8) [facility] GLUCOSE (AUTOMATED)2020-09-29 01:41:00 Test Item Value Reference Range Interpretation Comments POCT GLU (test code = 5682415243) 326 mg/dL 70-110 H Lab Interpretation (test code = Abnormal 28663-3) [facility] use with Heparin Drip)2020-09-28 23:01:00 Test Item Value Reference Range Interpretation Comments APTT Patient (test code = See_Comment [ Automated message] 3173-2) The system [employer] generated this result transmitted ref erence range: 26 - 36 Seconds. The re ference range was not u sed to interpret this result as normal/abnor mal. Lab Interpretation (test Normal code = 15916-7) [facility] GLUCOSE (AUTOMATED)2020-09-28 13:53:00 Test Item Value Reference Range Interpretation Comments POCT GLU (test code = 2365268601) 192 mg/dL 70-110 H Lab Interpretation (test code = Abnormal 23972-6) [facility] HospitalTroponin [id number] 11:02:00 Test Item Value Reference Range Interpretation Comments TROPONIN I (test 0.184 ng/mL See_Comment H [Automated code = 1076612513) message] The system which generated this result [...] ? Lab Interpretation Abnormal (test code = 29618-1) [facility] HospitalLIPID PANEL (20673)(TOTAL CHOLESTEROL, TRIGLYCERIDES, HDL)2020-09-28 10:35:00 Test Item Value Reference Range Interpretation Comments CHOL (test code = 150 mg/dL 120-200 9496095805) HDL (test code = 40 mg/dL >40 L 0023740419) HDLC RATIO (test code = See_Comment [Au tomated message] 5429481370) The system [employer] generated this result transmit miriam reference range : <=5.0. The refe rence range was not u sed to interpret th is result as normal/abnormal . TRIG (test code = 134 mg/dL 30-170 2128077385) LDL CHOL (test code = 83 mg/dL See_Comment [Auto mated message] 78775-3) The system [employer] generated this result transmit miriam reference range : <=160. The refe rence range was not u sed to interpret th is result as normal/abnormal . VLDL (test code = 27 mg/dL 5-60 7848906921) Lab Interpretation (test Abnormal code = 68717-7) [facility] use with Heparin Drip)2020-09-28 09:57:00 Test Item Value Reference Range Interpretation Comments APTT Patient (test code See_Comment H [Au tomated message] = 3173-2) The system [employer] generated this result transmitted ref erence range: 26 - 36 Seconds. The reference range was not used to int erpret this result as normal/abnormal . Lab Interpretation (test Abnormal code = 99412-0) [facility]2020-09-28 06:35:00 Test Item Value Reference Range Interpretation Comments POCT GLU (test code = 6723867984) 271 mg/dL 70-110 H Lab Interpretation (test code = Abnormal 43314-8) [facility] HospitalTroponin [id number] 05:06:00 Test Item Value Reference Range Interpretation Comments TROPONIN I (test 0.189 ng/mL See_Comment H [Automated code = 6307646462) message] The system which generated this result [...] ? Lab Interpretation Abnormal (test code = 40180-3) [facility] use with Heparin Drip)2020-09-28 03:55:00 Test Item Value Reference Range Interpretation Comments APTT Patient (test code See_Comment H [Au tomated message] = 3173-2) The system [employer] generated this result transmitted ref erence range: 26 - 36 Seconds. The reference range was not used to int erpret this result as normal/abnormal . Lab Interpretation (test Abnormal code = 79028-5) [facility] HospitalCT CHEST PULMONARY [id number] 21:42:18HISTORY: Positive d-dimer, rule out P.E. TECHNIQUE: Contrast-enhanced 64-mutidetector CT scan of thechest wascompleted with intravenous injection of ?non ionic [...] chronic history of poorlycontrolled diabetes. Please correlate. [facility], Radiant Results Inft User - 09/27/2020 3:43 [...] of chronic history of poorlycontrolled diabetes. Please correlate.[facility] HospitalLACTATE [id number] 21:42:00 Test Item Value Reference Range Interpretation Comments LDH (test code = 1426872974) 678 U/L 300-600 H Lab Interpretation (test code = Abnormal 54079-5) [facility] HospitalCOVID-19 (ID NOW RAPID TESTING)2020-09-27 19:56:00 Test Item Value Reference Range Interpretation Comments SARS-CoV-2 Rapid ID NOW Not Detected Not Detected (test code = 88623-6) KARSON (test code = KARSON) ID NOW COVID-19 Assay is an isothermal nucleic acid amplification test intended for the qualitative detection of nucleic acid from SARS-CoV-2 viral RNA in nasopharyngeal (WIND TECHNICIAN) specimens. It is used under Emergency Use [...] indicated. Lab Interpretation Normal (test code = 82474-0) [facility]PTT2020-11-12 19:50:00 Test Item Value Reference Range Interpretation Comments APTT Patient (test See_Comment [Automat ed code = 3173-2) message] The system which generated this result transmitted reference range : 23 - 38 Seconds . The reference range was not used to interpr et this result as normal/abnormal . KARSON (test code = KARSON) The [facility] patient population mean normal value for aPTT is 30 seconds. Lab Interpretation Normal (test code = 36661-3) [facility] HospitalProthrombin Time (PT) / [id number] 19:50:00 Test Item Value Reference Range Interpretation [...] tions. Lab Interpretation (test Normal code = 59598-7) [facility] HospitalTroponin [id number] 19:48:00 Test Item Value Reference Range Interpretation Comments TROPONIN I (test 0.207 ng/mL See_Comment H [Automated code = 9649295847) message] The system which generated this result [...] ? Lab Interpretation Abnormal (test code = 46915-0) [facility] HospitalN-TERMINAL [id number] 19:46:00 Test Item Value Reference Range Interpretation Comments NT-proBNP (test code 1370 pg/mL See_Comment H [Autom ated = 0346176790) message] The system which generated this result transmitted reference range : <=125. The reference range was not used to interpret this result as normal/abnormal . KARSON (test code = KARSON) Biotin has been reported to cause a negative bias, interpret results relative to patient's use of biotin. Lab Interpretation Abnormal (test code = 80364-0) [facility] HospitalD-[id number] 19:37:00 Test Item Value Reference Interpretation Comments Range D-DIMER (test code = See_Comment H [Autom ated 1708155764) message] The system which generated this result [...] diagnosis. Lab Interpretation Abnormal (test code = 65329-7) [facility] Metabolic Panel (NA, K, CL, CO2, GLUCOSE, BUN, CREATININE, CA)2020-09-27 19:36:00 Test Item Value Reference Range Interpretation Comments NA (test code = 134 mmol/L 135-145 L 1927657036) K (test code = 4.9 mmol/L 3.5-5 2640558870) CL (test code = 99 mmol/L 98-108 7468680829) CO2 TOTAL (test code = 30 mmol/L 23-31 2188002679) AGAP (test code = 2-16 1260345096) BUN (test code = 22 mg/dL 7-23 3161450201) GLUCOSE (test code = 216 mg/dL 70-110 H 3980501202) CREATININE (test code = 0.78 mg/dL 0.6-1.25 3820820350) CALCIUM (test code = 9.3 mg/dL 8.6-10.6 7133287796) eGFR Calculation mL/min/1.73m2 (Non-) (test code = 4336068278) eGFR Calculation mL/min/1.73m2 () (test code = 4097511591) KARSON (test code = KARSON) Association of [...] tests). Lab Interpretation Abnormal (test code = 21995-2) [facility] HospitalHepatic Function Panel (ALB, T.PRO, BILI T, BU/BC, ALT, AST, ALK PHOS)2020-09-27 19:36:00 Test Item Value Reference Range Interpretation Comments TOTAL BILI (test code = 8752879227) 1.4 mg/dL 0.1-1.1 H BILI UNCON (test code = 5433847773) 0.8 mg/dL 0.1-1.1 BILI CONJ (test code = 9824870047) 0.0 mg/dL 0-0.3 T PROTEIN (test code = 6458511523) 7.2 g/dL 6.3-8.2 ALBUMIN (test code = 0765135106) 4.2 g/dL 3.5-5 ALK PHOS (test code = 4103435230) 53 U/L 34-122 ALTv (test code = 1742-6) 106 U/L 5-50 H AST(SGOT) (test code = 0263594719) 61 U/L 13-40 H Lab Interpretation (test code = Abnormal 49358-6) [facility] HospitalLipase [id number] 19:35:00 Test Item Value Reference Range Interpretation Comments LIPASE (test code = 0493557786) 41 U/L 0-220 Lab Interpretation (test code = Normal 16747-8) [facility] HospitalCBC with [id number] 19:19:00 Test Item Value Reference Range Interpretation Comments WBC (test code = See_Comment [Automated message] 6690-2) The system [employer] generated this result transmitted ref erence range: 4.20 - 1 0.70 10*3/?L. The re ference range was not u sed to interpret this result as normal/abnor mal. RBC (test code = See_Comment [Automated message] 789-8) The system [employer] generated this result transmitted ref erence range: [...] RDW-SD (test code 44.4 fL 38.5-51.6 = 44244-2) RDW-CV (test code 13.2 % 12.1-15.4 = 788-0) PLT (test code = See_Comment [Automated message] 777-3) The system [employer] generated this result transmitted ref erence range: 150 - 32 8 10*3/?L. The re ference range was not u sed to interpret this result as normal/abnor mal. MPV (test code = 11.4 fL 9.8-13 03780-8) NRBC/100 WBC (test See_Comment [Automat ed message] code = 8137816239) The syste m which generated this result transmitted ref erence range: 0.0 - 10 .0 /100 WBCs. The refer ence range was not u sed to interpret this result as normal/abnor mal. NRBC x10^3 (test <0.01 See_Comment [Automated message] code = 3288846322) The syste m which generated this result transmitted ref erence range: 10*3/?L. The reference range was not used to interpr et this result as normal/abnormal . GRAN MAT (NEUT) % 60.5 % (test code = 770-8) IMM GRAN % (test 0.60 % code = 6635288077) LYMPH % (test code 27.0 % = 736-9) MONO % (test code 8.4 % = 5905-5) EOS % (test code = 2.9 % 713-8) BASO % (test code 0.6 % = 706-2) GRAN MAT 4.80 10*3/uL 1.99-6.95 x10^3(ANC) (test code = 4657682890) IMM GRAN x10^3 0.05 10*3/uL 0-0.06 (test code = 3743285770) LYMPH x10^3 (test 2.14 10*3/uL 1.09-3.23 code = 731-0) MONO x10^3 (test 0.67 10*3/uL 0.36-1.02 code = 742-7) EOS x10^3 (test 0.23 10*3/uL 0.06-0.53 code = 711-2) BASO x10^3 (test 0.05 10*3/uL 0.01-0.09 code = 704-7) [facility] HospitalChes 1 [id number] 19:01:56CHEST PORTABLE ONE VIEW HISTORY:CP, SOB TECHNIQUE: [...] is seen.CONCLUSIONS:1. Mild pulmonary edema and borderline cardiomegalyUnUT Health [facility] Campus [facility]
[2023-05-11 11:22] LABS: Absolute Lymphocytes (CBC) 1.4 K/uL (0.7-4.9); Hematocrit 44.5 % (39.6-49.0); Lymphocytes % 30.8 % (15.3-44.8); MCV 92.3 fL (80-100); MPV 9.4 fL (7.6-11.3); RBC Red Blood Cell Count 4.82 M/uL (4.33-5.43)
[2023-05-11 11:35] LABS: Albumin 3.6 g/dL (3.4-5.0); Bilirubin Total 0.7 mg/dL (0.2-1.0); Potassium 3.9 mEq/L (3.5-5.1); Protein, Total 7.2 g/dL (6.4-8.2); Troponin High Sensitivity 9.3 pg/mL (<58.9)
--- NOTE | 2023-05-11 12:27 | RAD REPORT ---
EXAM DESCRIPTION: CT - Chest For Pe Angio - 05/11/2023 12:00 pm CLINICAL HISTORY: SOB COMPARISON: Chest Single View dated 08/24/2022 TECHNIQUE: Thin axial CT images of the chest were obtained following administration of 100 mL Isovue 370 IV contrast. Multiplanar reconstructions, and maximum intensity projection reconstructions were generated and reviewed. Exam utilizes a protocol for optimal evaluation of pulmonary arterial tree. All CT scans are performed using dose optimization technique as appropriate and may include automated exposure control or mA/KV adjustment according to patient size. FINDINGS: Pulmonary arteries are normal. No emboli or other suspicious finding. No acute or signific ant aorta findings. Sequelae of prior median sternotomy and CABG. Heart is mildly enlarged. Patchy ground-glass opacities throughout the right upper and middle lobes. No other suspicious mass or infiltrate in the lung pare nchyma, apart from left lingular atelectasis. No pleural thickening or pleural effusion. No pneumotho rax. No abnormal mediastinal or hilar masses or lymphadenopathy seen. No chest wall mass or abnormal axill iary lymphadenopathy. IMPRESSION: No evidence of acute central pulmonary emboli. Patchy ground-glass opacities throughout the right upper and middle lobes, concerning for multifocal pneumonia.
[2023-05-11 13:38] LABS: SARS-CoV-2 Antigen Rapid Res Positive (Negative)
[2023-05-11] MEDS ORDERED: ACETAMINOPHEN 325 MG TABLET ONE (13:39)
--- NOTE | 2023-05-11 13:57 | EDPHYS ---
Physician Documentation [facility] Name: Artem Pena Age: 62 yrs Sex: Male : 1960 Arrival Date: 05/11/2023 Time: 10:00 Bed 10 Private MD: Carlos Young E ED Physician Bijan Garcia HPI: 05/11 10:34 This 62 yrs old Male presents to ER via Ambulatory with complaints of Covid+, Flu jmm Symptoms. 10:34 The patient or guardian reports cough. Onset: The symptoms/episode began/occurred jmm gradually, 2 day(s) ago. Modifying factors: The symptoms are alleviated by nothing. the symptoms are aggravated by nothing. This is a 62 year old male with a history of CHF, htn, dm, that presents to the ED with complaints of cough, fever, sob beginning this past Thursday. patient states having a positive home covid test. . Historical: - Allergies: 10:26 Latex, Natural Rubber; nj1 10:26 Lisinopril; nj1 10:26 metformin; nj1 10:26 Yyztjei-TKA-PbY Reductase Inhibitors; nj1 - PMHx: 10:26 Congestive heart failure; Hypertension; Diabetes mellitus; nj1 - PSHx: 10:26 Coronary artery bypass graft; nj1 - Immunization history:: Client reports receiving the 2nd dose of the Covid vaccine. - Social history:: Smoking status: Patient denies any tobacco usage or history of. ROS: 10:34 Constitutional: Positive for body aches, fatigue. jmm 10:34 Respiratory: Positive for cough, shortness of breath. 10:34 All other systems are negative. Exam: 10:34 Constitutional: This is a well developed, well nourished patient who is awake, alert, jmm and in no acute distress. Head/Face: atraumatic. Eyes: EOMI, no conjunctival erythema appreciated ENT: Moist Mucus Membranes Neck: Trachea midline, Supple Chest/axilla: Normal chest wall appearance and motion. Cardiovascular: Regular rate and rhythm. No edema appreciated Respiratory: Normal respirations, no respiratory distress appreciated Abdomen/GI: Non distended Back: Normal ROM Skin: General appearance color normal 10:34 Musculoskeletal/extremity: ROM: intact in all extremities. 10:34 Skin: Appearance: Color: normal in color. 10:34 Neuro: Orientation: is normal, Mentation: is normal, Memory: is normal. 10:34 Psych: Behavior/mood is pleasant, cooperative. Vital Signs: 10:22 BP 157 / 81; Pulse 74; Resp 18; Temp 98.3(O); Pulse Ox 99% ; Weight 131.54 kg; Height 6 ss ft. 4 in. ; Pain 5/10; 13:22 BP 177 / 87; Pulse 67; Resp 16; Pulse Ox 98% on R/A; cm10 14:15 Pain 2/10; cm10 14:16 BP 158 / 82; Pulse 65; Resp 16; Pulse Ox 99% on R/A; Pain 2/10; cm10 10:22 Body Mass Index 35.30 (131.54 kg, 193.04 cm) ss 10:22 Pain Scale: Adult ss 14:15 Pain Scale: Adult cm10 14:16 Pain Scale: Adult cm10 MDM: 10:34 Patient medically screened. [facility] 15:04 Differential diagnosis: flu, pneumonia. Data reviewed: vital signs, nurses notes, lab [facility] test result(s), radiologic studies, CT scan. Consideration of Admission/Observation Escalation of care including admission/observation considered. I considered the following discharge prescriptions or medication management in the emergency department Medications were administered in the Emergency Department. See MAR. Counseling: I had a detailed discussion with the patient and/or guardian regarding: the historical points, exam findings, and any diagnostic results supporting the discharge/admit diagnosis, lab results, radiology results, the need for outpatient follow up, to return to the emergency department if symptoms worsen or persist or if there are any questions or concerns that arise at home. 05/11 10:34 Order name: CBC with Diff; Complete Time: 11:27 [facility] 05/11 10:34 Order name: CMP; Complete Time: 11:36 [facility] 05/11 10:34 Order name: Troponin High Sensitivity; Complete Time: 11:36 [facility] 05/11 12:34 Order name: Blood Culture Adult (2) [facility] 05/11 12:34 Order name: SARS-COV-2 Antigen Rapid; Complete Time: 13:38 [facility] 05/11 11:36 Order name: CT Chest For PE Angio; Complete Time: 12:33 [facility] 05/11 10:34 Order name: Saline Lock; Complete Time: 11:07 [facility] 05/11 10:37 Order name: EKG - Nurse/Tech; Complete Time: 11:07 [facility] Administered Medications: 13:35 Drug: Acetaminophen PO 650 mg Route: PO; cm10 14:15 Follow up: Pain 10 Adult; Response: No adverse reaction; Pain is decreased cm10 Disposition: 15:27 Co-signature as Attending Physician, Bijan Garcia MD I reviewed the patient's care rn provided by the Advanced Practice Provider and agree with the diagnosis and treatment plan. Disposition Summary: 05/11/23 13:57 Discharge Ordered Location: Home [facility] Condition: Stable jm Diagnosis - Pneumonia [facility] - Coronavirus infection, unspecified jmm Followup: [facility] - With: Private Physician - When: 2 - 3 days - Reason: Recheck today's complaints, Continuance of care, Re-evaluation by your physician Discharge Instructions: - Discharge Summary Sheet [facility] - Community-Acquired Pneumonia, Adult [facility] Forms: - Medication Reconciliation Form [facility] - Thank You Letter [facility] - Antibiotic Education [facility] - Prescription Opioid Use [facility] - [email or web address] [facility] Prescriptions: - cefdinir 300 mg Oral capsule - take 1 capsule by ORAL route 2 times per day for 10 days; 20 capsule; Refills: jmm 0, Product Selection Permitted - albuterol sulfate 90 mcg/actuation Inhalation HFA Aerosol Inhaler - inhale 2 puff by INHALATION route every 4-6 hours As needed as needed for jmm bronchospasm; administer via ventilator; 1 unit; Refills: 0, Product Selection Permitted Signatures: Dispatcher [employer] EDHosea Townsend PA PA [facility] Bijan Garcia MD MD rn Jaco, Norma, RN RN nj1 Dayna Villarreal RN RN cm10 Corrections: (The following items were deleted from the chart) 10: 10:26 PMHx: Diabetes - IDDM; nj1 nj1
--- NOTE | 2023-05-11 13:57 | ER ---
Nurse's Notes [facility] Name: Artem Pena Age: 62 yrs Sex: Male : 1960 Arrival Date: 05/11/2023 Time: 10:00 Bed 10 Private MD: Carlos Young E Diagnosis: Pneumonia;Coronavirus infection, unspecified Presentation: 05/11 10:22 Chief complaint: Patient states: Fever, chills, body aches, cough since Thursday, nj1 getting worse. Fatigued. Pt states he took an in home test this morning and was positive for COVID. Coronavirus screen: Vaccine status: Patient reports receiving the 2nd dose of the covid vaccine. Ebola Screen: Patient denies travel to an Ebola-affected area in the 21 days before illness onset. Initial Sepsis Screen: Does the patient meet any 2 criteria? No. Patient's initial sepsis screen is negative. Does the patient have a suspected source of infection? No. Patient's initial sepsis screen is negative. Risk Assessment: Do you want to hurt yourself or someone else? Patient reports no desire to harm self or others. Onset of symptoms was May 09, 2023. 10:22 Method Of Arrival: Ambulatory nj1 10:22 Acuity: TANGELA 3 nj1 Triage Assessment: 14:17 General: Behavior is calm, cooperative. cm10 Historical: - Allergies: 10:26 Latex, Natural Rubber; nj1 10:26 Lisinopril; nj1 10:26 metformin; nj1 10:26 Akxvdbd-SRJ-ZdM Reductase Inhibitors; nj1 - PMHx: 10:26 Congestive heart failure; Hypertension; Diabetes mellitus; nj1 - PSHx: 10:26 Coronary artery bypass graft; nj1 - Immunization history:: Client reports receiving the 2nd dose of the Covid vaccine. - Social history:: Smoking status: Patient denies any tobacco usage or history of. Screenin:07 [facility] ED Fall Risk Assessment (Adult) History of falling in the last 3 months, ss including since admission No falls in past 3 months (0 pts). Abuse screen: Denies threats or abuse. Denies injuries from another. Nutritional screening: No deficits noted. Tuberculosis screening: Never had TB. Assessment: 11:07 General: Appears in no apparent distress. comfortable. General: Reports feeling ill for ss > 3 days. Neuro: Level of Consciousness is awake, alert, obeys commands. Cardiovascular: Capillary refill < 3 seconds is brisk in bilateral fingers. Respiratory: Airway is patent Respiratory effort is even, unlabored, Respiratory pattern is regular, symmetrical. GI: Patient currently denies nausea. Derm: Skin is intact, is healthy with good turgor, Skin is dry, Skin is pink, warm \T\ dry. normal. 12:19 Reassessment: No changes from previously documented assessment. Patient and/or family cm10 updated on plan of care and expected duration. Pain level reassessed. Patient is alert, oriented x 3, equal unlabored respirations, skin warm/dry/pink. Pt back from CT. Pt reports feeling better, no chest pain or shortness of breath. Updated on plan of care. Patient states feeling better. Patient states symptoms have improved. Pain: Denies pain. 13:21 Reassessment: Pt reports headache. Provider made aware. cm10 Vital Signs: 10:22 BP 157 / 81; Pulse 74; Resp 18; Temp 98.3(O); Pulse Ox 99% ; Weight 131.54 kg; Height 6 ss ft. 4 in. ; Pain 5/10; 13:22 BP 177 / 87; Pulse 67; Resp 16; Pulse Ox 98% on R/A; cm10 14:15 Pain 2/10; cm10 14:16 BP 158 / 82; Pulse 65; Resp 16; Pulse Ox 99% on R/A; Pain 2/10; cm10 10:22 Body Mass Index 35.30 (131.54 kg, 193.04 cm) ss 10:22 Pain Scale: Adult ss 14:15 Pain Scale: Adult cm10 14:16 Pain Scale: Adult cm10 ED Course: 10:03 Patient arrived in ED. mr 10:03 Carlos Young MD is Private Physician. mr 10:08 Hosea Tavarez PA is PHCP. [facility] 10:08 Bijan Garcia MD is Attending Physician. [facility] 10:26 Triage completed. nj1 10:27 Arm band placed on right wrist. nj1 11:07 Ivory Davidson, RA is Primary Nurse. ss 11:07 Patient has correct armband on for positive identification. Bed in low position. ss 11:07 Troponin High Sensitivity Sent. em1 11:07 CMP Sent. em1 11:07 CBC with Diff Sent. em1 11:07 Initial lab(s) drawn, by me, sent to lab. EKG done, by ED staff, reviewed by Hosea HERNANDEZ. Inserted saline lock: 20 gauge in right forearm, using aseptic technique. Blood collected. 11:47 Primary Nurse role handed off by Ivory Davidson, RN cm10 11:47 Dayna Villarreal, RN is Primary Nurse. cm10 11:[address] cm10 12:01 CT Chest For PE Angio In Process Unspecified. EDMS 12:19 Patient moved back from CT. cm10 13:21 Blood Culture Adult (2) Sent. cm10 14:16 No provider procedures requiring assistance completed. IV discontinued, intact, cm10 bleeding controlled, No redness/swelling at site. Pressure dressing applied. Administered Medications: 13:35 Drug: Acetaminophen PO 650 mg Route: PO; cm10 14:15 Follow up: Pain 2/10 Adult; Response: No adverse reaction; Pain is decreased cm10 Medication: 11:07 VIS not applicable for this client. Outcome: 13:57 Discharge ordered by MD. [facility] 14:16 Discharged to home ambulatory. cm10 14:16 Condition: good 14:16 Discharge instructions given to patient, Instructed on discharge instructions, follow up and referral plans. medication usage, Demonstrated understanding of instructions, follow-up care, medications, Prescriptions given X 2. 14:17 Patient left the ED. cm10 Signatures: Dispatcher [employer] EDMO Hosea Tavarez PA PA jmm Dexter, Ricci De Leon em1 Ivory Davidson RN RN Tete Perez RN RN nj1 Dayna Villarreal, RA RN cm10 Corrections: (The following items were deleted from the chart) 10:27 10:26 PMHx: Diabetes - IDDM; [place] [address] 10:32 10:22 Acuity: TANGELA 4 [place] [address] 10:52 10:22 BP 157 / 81; Pulse 18bpm; Resp 18bpm; Pulse Ox 99%; Temp 98.3F Oral; 131.54 kg; ss Height 6 ft. 4 in.; BMI: 35.3; Pain 5/10, Adult; [facility]
[2023-05-11 14:25] VITALS: TEMP 98.3
[2023-05-11 14:29] VITALS: BP 158/82; O2SAT 99
--- NOTE | 2023-05-12 20:41 | EKG ---
Test Date: 2023-05-11 Test Time: 10:58:04 Qual Research Manager: NATY MEASUREMENT RESULTS: Intervals: Rate: 71 VT: 226 QRSD: 100 QT: 428 QTc: 465 Forbes: P: 47 VT: 226 QRS: 13 T: 64 INTERPRETIVE STATEMENTS: Sinus rhythm with 1st degree AV block Prolonged QT Abnormal ECG Compared to ECG 08/24/2022 02:39:06 Prolonged QT interval now present Myocardial infarct finding no longer present Electronically Signed On 05-12-23 20:33:21 CDT by Altaf Daly
== END 2023-05-11 14:17 | disposition home or self-care (01) ==
LOC: ER 10:00
DX: U07.1 COVID-19 (principal); J12.82 Pneumonia due to coronavirus disease 2019; I10 Essential (primary) hypertension; I50.9 Heart failure, unspecified; E11.9 Type 2 diabetes mellitus without complications; Z95.1 Presence of aortocoronary bypass graft; Z88.8 Allergy status to other drugs, medicaments and biological substances; Z91.040 Latex allergy status; Z91.048 Other nonmedicinal substance allergy status
CPT/HCPCS: 87040 ×2; 85025; 36415; 84484; 80053; 71275; 87811; Q9967; 93005

== ENCOUNTER 2024-10-17 10:12 | Emergency (ER) | payer OTHER, BC ==
--- OUTSIDE RECORDS SUMMARY | 2024-10-17 10:19 | XMS REPORT | Continuity of Care Document ---
Author Name Unknown Address [address] [facility] [address] [place] [address] [facility] Address [address] [facility]. [address] [place] [address] Care Team Providers Care Winder Tender Name Role Phone Hannah Muñoz MD, Carlos Aguirre Primary [facility] KJ LOPEZ Attending Clinician Unavailable MOI ESTRADA Attending Clinician Unavailable MOI ESTRADA Attending Clinician MK Martines Attending Clinician Unavailab KJ Oneill Attending Clinician Unavailable Collin Attending Clinician Unavailable Paulette Harris MA Attending Clinician AIMEE Wood Attending Clinician Malini Barrow RN, Fany Attending Clinician Unavailab le Doctor Unassigned, [place] Attending Clinician U JUAREZ Carbajal Attending Clinician RAEANN Howe Attending Clinician Rivas Gao MD, Juarez Vásquez Attending Clinician + Huy Judge DO Attending Clinician Draw, [facility] Attending Clinician Stephenie MCDONALD, Blaise Guillen Attending Clinician [phone] BLAISE CROUCH Attending Clinician Rivas Stephens RN, Cristina Sheridan Attending Clinician [phone] Petrona Padilla Attending Clinician [phone] Aracely KNAPP, Maya Attending Clinician [phone] Jeramy PUBLISHER ASSISTANT, Elisabet Rinaldi Attending Clinician [phone] Jack ASENCIO, Oleksandr Braswell Attending Clinici an Collin Admitting Clinician Unavailable AIMEE MCGOWAN Admitting Clinician Malini Estrada MD, Moi Admitting Clinician [phone] Jack ASENCIO, Oleksandr Braswell Admitting Clinici an Payers Payer Name Policy Type Policy Number Effective Date Expirati on Date Source [facility] [id number] 2021 00:00:00 2024 00:00:00 OTHER CI [id number] [place] [email or web address] [id number] 2023 00:00:00 [place] [id number] 2023 00:00:00 JEROME REYNOLDS FROM [facility] ([facility]) [id number] Problems Condition Name Condition Details Condition Category Status Onset Date Resolution Date Last Treatment Date Treating Clinician Comments Source Atheroscle rosis of coronary artery Atheroscle rosis of coronary artery Disease Active 2023-11 00:00: 00 Tex Swenson DM (diabetes mellitus) DM (diabetes mellitus) Disease Active 2023-11 0- 00:00: 00 Tex Swenson Neuropathy Neuropathy Disease Active 2023-11 0-01 00:00: 00 Tex Swenson Screening for malignant neoplasm of prostate Screening for Malignant Neoplasm of Prostate Problem Active 6-03 00:00: 00 [facility] Secondary polycythem ia Secondary Polycythem ia Problem Active 6- 00:00: 00 [facility] Hypernatre keenan Hypernatre keenan Problem Active 6 00:00: 00 [facility] Morbid obesity Morbid Obesity Problem Active 07-25 00:00: 00 [facility] 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 Due to Type 2 Diabetes Mellitus Problem Active 07-25 00:00: 00 [facility] Bilateral cataracts Bilateral Cataracts Problem Active 3-04 00:00: 00 [facility] Long-term current use of insulin Long-term Current Use of Insulin Problem Active 3-04 00:00: 00 [facility] 5 MONTH FOLLOW UP 5 MONTH FOLLOW UP Active 12/27/2021 [facility] Diagnosis Active 2-11 00:00: 00 2022-07-18 16:05:00 [place] Santana I25.10 ECHO COMPLETE I25.10 ECHO COMPLETE Active 09/10/2021 [facility] Diagnosis Active 2020-11 0-26 00:00: 00 2021-12-04 08:34:00 [place] Santana 3 MONTHS FOLLOW UP/ECHO 3 MONTHS FOLLOW UP/ECHO Active 08/29/2021 [facility] Diagnosis Active 2020-11 0-14 00:00: 00 2021-12-27 10:07:00 [place] Santana P22.0 - RESPIRATOR Y DISTRESS SYNDROME P22.0 - RESPIRATOR Y DISTRESS SYNDROME Active 07/23/2021 [facility] Diagnosis Active 9 00:01: 00 2021-07-23 14:01:00 [place] Santana SOB SOB Active 07/16/2021 [facility] Active 07-16 00:00: 00 2021 15:20:00 [place] Santana N/A N/A Active 07/16/2021 [facility] Diagnosis Active 07-16 00:00: 00 2021-07-28 12:53:00 [place] Santana Aspartate aminotrans ferase serum level above reference range Aspartate Aminotrans ferase Serum Level above Reference Range Problem Active 8 00:00: 00 [facility] 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 Active 06/19/2021 [facility] Diagnosis Active 8 00:01: 00 2021-06-26 13:26:00 [place] Santana I25.10 I25.10 Active 06/19/2021 [facility] Diagnosis Active 8 00:00: 00 2021-06-21 09:32:00 [place] Santana Foot callus Foot Callus Problem Active 8 00:00: 00 [facility] Body mass index 40+ - severely obese Body Mass Index 40+ - Severely Obese Problem Active 8 00:00: 00 [facility] Atheroscle rosis of coronary artery without angina pectoris Atheroscle rosis of Coronary Artery without Angina Pectoris Problem Active 8 00:00: 00 [facility] Type 2 diabetes mellitus Type 2 Diabetes Mellitus Problem Active 8 00:00: 00 [facility] Hyperlipid emia Hyperlipid emia Problem Active 8 00:00: 00 [facility] Hypertensi ve disorder Hypertensi ve Disorder Problem Active 8 00:00: 00 [facility] Atrial fibrillati on Atrial Fibrillati on Problem Active 8 00:00: 00 [facility] Longstandi ng persistent atrial fibrillati on Longstandi ng persistent atrial fibrillati on Disease Active 06-05 00:00: 00 [facility] Anticoagul ation management encounter Anticoagul ation management encounter Disease Active 06-05 00:00: 00 [facility] Coronary artery disease involving inaja heart without angina pectoris Coronary artery disease involving inaja heart without angina pectoris Disease Active 06-05 00:00: 00 [facility] Obstructiv e sleep apnea Obstructiv e sleep apnea Disease Active 06-05 00:00: [address] [facility] Essential hypertensi on Essential hypertensi on Disease Active 06-05 00:00: [address] [facility] R07.9,I25. 10,I25.10, I50.22 R07.9,I25. 10,I25.10, I50.22 Active 05/29/2021 [place] Diagnosis Active 05-29 00:00: 00 2021-06-05 10:50:00 [place] Santana 6WK FOLLOW UP 6WK FOLLOW UP Active 05/23/2021 [facility] Diagnosis Active 05-23 00:00: 00 2021-08-29 14:00:00 [place] Santana NSTEMI (non-ST elevated myocardial infarction ) NSTEMI (non-ST elevated myocardial infarction ) Disease Active 05-23 00:00: [address] [facility] Acute congestive heart failure Acute congestive heart failure Disease Active 05-23 00:00: [address] [facility] New onset atrial fibrillati on New onset atrial fibrillati on Disease Active 05-23 00:00: [address] [facility] I50.22 I25.10 I48.91 I50.22 I25.10 I48.91 Active 05/08/2021 [facility] Diagnosis Active 05-08 00:00: 00 2021-05-22 08:25:00 [place] I25.10,I50 .22,I48.91 I25.10,I50 .22,I48.91 Active 04/02/2021 [place] Diagnosis Active 04-02 00:00: 00 2021-04-18 07:40:00 [place] Santana 2 MO F/U 2 MO F/U Active 03/22/2021 [facility] Diagnosis Active 03-22 00:00: 00 2021-05-23 10:08:00 [place] Santa[place] NEW PT/DR. ROSITA POLO FT/CHF/UNS PE NEW PT/DR. ROSITA POLO FT/CHF/UNS PE Active 03/04/2021 [facility] Diagnosis Active 4-19 00:00: 00 2021-03-22 10:48:00 [place] Santana Class 3 severe obesity due to excess calories with body mass index (BMI) of 40.0 to 44.9 in adult Class 3 severe obesity due to excess calories with body mass index (BMI) of 40.0 to 44.9 in adult Disease Active 2019-11 00:00: 00 [facility] Morbid obesity with body mass index of 40.0-49.9 Morbid obesity with body mass index of 40.0-49.9 Disease Active 2019-11 00:00: [address] [facility] Chest pain Chest pain Disease Active 2019-11 00:00: 00 [facility] Congestive heart failure (disorder) Congestive heart failure (disorder) Resolved Problem 12/29/2021 [facility], Cammy Alcantar [facility], [facility], [place] Problem Resolve d 2021-12-29 23:48:14 [place] Santana ATHSCL HEART DISEASE OF THREE AFFILIATED CORONARY ATHSCL HEART DISEASE OF THREE AFFILIATED CORONARY Active [facility] Diagnosis Active 2021-07-28 12:53:00 [place] Santana Z95.1 - PRESENCE OF AORTOCORON NAVNEET BYPA Z95.1 - PRESENCE OF AORTOCORON NAVNEET BYPA Active Cammy Alcantar [facility] Diagnosis Active 2021-12-23 13:15:00 [place] Santana Allergies, Adverse Reactions, Alerts Allergy Name Allergy Type Status Severity Reaction(s) Onset Date Inactive Date Treating Clinician Comments Source Lisinopr il Allergy to substanc e Active 2023-11 0 00:00: 00 Memoria pearl Thida Epic Metformi n Allergy to substanc e Active 2023-11 0 00:00: 00 Memoria pearl HenryMax Epic Rosuvast atin Allergy to substanc e Active 2023-11 0 00:00: 00 Memoria l Max Epic Metformi n Allergy to substanc e Active Nausea And Vomiting 2019-11 00:00: [address] [facility] Metformi n Propensi ty to adverse reaction s Active Nausea and/or Vomiting 2019-11 00:00: 00 [facility] METFORMI N DRUG INGREDI Active N/V 2019-11 00:00: 00 [facility] Lisinopr il Propensi ty to adverse reaction s Active Cough 2019-11 00:00: 00 [facility] LISINOPR IL DRUG INGREDI Active COUGH 2019-11 00:00: 00 [facility] NO KNOWN ALLERGIE S Drug Class Active [facility] Lisinopr il Allergy to substanc e Active [facility] Trulicit y Allergy to substanc e Active Nausea, Vomiting [facility] Social History Social Habit Start Date Stop Date Quantity Comments Source Gender identity 2024-02-06 15:56:21 Identifies as male gender (finding) [facility] Exposure to SARS-CoV-2 (event) Not sure [facility] Sexual orientation [facility] History of Social function 2024-03-08 00:00:00 2024-03-08 00:00:00 [facility] Alcoholic beverage intake 2021-12-17 00:00:00 2021-12-17 00:00:00 Ex-drinker (finding) [facility] Alcohol intake 2021-08-08 00:00:00 2021-08-08 00:00:00 Ex-drinker (finding) [facility] Social History 2021-05-23 15:18:29 2021-05-23 15:18:29 [facility] Tobacco use and exposure 2021-05-23 00:00:00 2021-05-23 00:00:00 Smokeless tobacco non-user [facility] Sex Ass[birth year] At 1960 00:00:00 1960 00:00:00 [facility] Smoking Status Start Date Stop Date Source Tobacco smoking consumption unknown [facility] Never smoked tobacco Tex Santana [facility] Medications Ordered Medication Name Filled Medication Name Start Date Stop Date Current Medication? Ordering Clinician Indication Dosage Frequency Signature (SIG) Comments Components Source amiodarone (Pacerone) 200 MG tablet amiodarone (Pacerone) 200 MG tablet 2023-11 00:00: 00 04-04 23:59 :00 No 200mg QD Take 1 tablet by mouth 1 time each day. Tex Santana [facility] furosemide (Lasix) 40 MG tablet furosemide (Lasix) 40 MG tablet 2023-11 00:00: 00 04-04 23:59 :00 No 40mg QD Take 1 tablet by mouth 1 time each day. Tex kang Max Swenson metoprolol succinate XL (Toprol-XL) 50 MG 24 hr tablet metoprolol succinate XL (Toprol-XL) 50 MG 24 hr tablet 2023-11 00:00: 00 04-04 23:59 :00 No 50mg QD Take 1 tablet by mouth 1 time each day. Do not crush or chew. Tex Santana Epic losartan (Cozaar) 25 MG tablet losartan (Cozaar) 25 MG tablet 2023-11 00:00: 00 04-04 23:59 :00 No 12.5mg QD Take 0.5 tablets by mouth 1 time each day. [place] Santana Epic amiodarone (Pacerone) 200 MG tablet amiodarone (Pacerone) 200 MG tablet 5- 00:00: 00 10-06 00:00 :00 No = 1 tab, PO, Daily, # 90 tab, 3 Refill(s), Pharmacy: [facility], 193.04, cm, 03/08/24 16:57:00 CDT, Height, 131.227, kg, 03/08/24 16:57:00 CDT, Weight Tex kang Max Epic losartan (Cozaar) 25 MG tablet losartan (Cozaar) 25 MG tablet -23 00:00: 00 Yes 25mg 25 mg. Tex kang Thida Epic amiodarone (Pacerone) 200 MG tablet amiodarone (Pacerone) 200 MG tablet 0 2-08 00:00: 00 Yes = 1 tab, PO, Daily, # 90 tab, 0 Refill(s), Pharmacy: [facility], 193.04, cm, 09/01/23 9:58:00 CDT, Height, 135.318, kg, 09/01/23 9:58:00 CDT, Weight [place] Santana Epic losartan (Cozaar) 25 MG tablet losartan (Cozaar) 25 MG tablet 2022-11 2-14 00:00: 00 10-06 00:00 :00 No = 0.5 tab, PO, Daily, # 45 tab, 2 Refill(s), Pharmacy: [facility], 193.04, cm, 09/01/23 9:58:00 CDT, Height, 135.318, kg, 09/01/23 9:58:00 CDT, Weight Memoria l Max Epic evolocumab (Repatha SureClick) 140 MG/ML injection evolocumab (Repatha SureClick) 140 MG/ML injection 2022-11 0- 00:00: 00 Yes 140mg 140 mg = 1 mL, SUB-Q, Q14D, # 6 mL, 3 Refill(s), Pharmacy: [facility], 193.04, cm, 09/01/23 9:58:00 CDT, Height, 135.318, kg, 09/01/23 9:58:00 CDT, Weight Memoria pearl Santana Epic metoprolol succinate XL (Toprol-XL) 50 MG 24 hr tablet metoprolol succinate XL (Toprol-XL) 50 MG 24 hr tablet 08-07 00:00: 00 10-06 00:00 :00 No = 1 tab, PO, Daily, # 90 tab, 2 Refill(s), Pharmacy: [facility], 193.04, cm, 03/02/23 17:38:00 CDT, Height, 135.455, kg, 03/02/23 17:38:00 CDT, Weight Memoria pearl Santana Epic furosemide (Lasix) 40 MG tablet furosemide (Lasix) 40 MG tablet 3-12 00:00: 00 10-06 00:00 :00 No = 1 tab, PO, Daily, # 180 tab, 2 Refill(s), Pharmacy: [facility], 193.04, cm, 08/26/22 15:09:00 CDT, Height, 141.591, kg, 08/26/22 15:09:00 CDT, Weight Memoria l Max Epic 24 HR Metoprolol Tartrate 100 MG Extended Release Tablet [Toprol] 2021-- 17:36: 00 Yes 100 mg = 1 tab, PO, Daily, # 90 tab, 3 Refill(s), Pharmacy: [facility], 193.04, cm, 08/29/21 17:30:00 CDT, Height, 157.727, kg, 08/29/21 17:30:00 CDT, Weight Memoria pearl HenryMax atorvastati n 20 MG Oral Tablet [Lipitor] 12-27 17:36: 00 Yes 20 mg = 1 tab, PO, Bedtime, # 90 tab, 3 Refill(s), Pharmacy: [facility], 193.04, cm, 08/29/21 17:30:00 CDT, Height, 157.727, kg, 08/29/21 17:30:00 CDT, Weight Memoria l Max losartan 25 mg oral tablet 12-27 17:34: 00 Yes 25 mg = 1 tab, PO, Daily, # 90 tab, 3 Refill(s), Pharmacy: [facility], 193.04, cm, 08/29/21 17:30:00 CDT, Height, 157.727, kg, 08/29/21 17:30:00 CDT, Weight Memoria l Max AMIODarone 200 mg oral tablet 12-27 17:30: 00 Yes 200 mg = 1 tab, PO, Daily, # 90 tab, 3 Refill(s), Pharmacy: [facility], 193.04, cm, 08/29/21 17:30:00 CDT, Height, 157.727, kg, 08/29/21 17:30:00 CDT, Weight Memoria l Max apixaban 5 MG Oral Tablet [Eliquis] 12-27 17:30: 00 Yes 5 mg = 1 tab, PO, Q12H, # 180 tab, 3 Refill(s), Pharmacy: [facility], 193.04, cm, 08/29/21 17:30:00 CDT, Height, 157.727, kg, 08/29/21 17:30:00 CDT, Weight Memoria l Max Furosemide 40 MG Oral Tablet 12-27 17:30: 00 Yes 40 mg = 1 tab, PO, BID Diuretic, # 180 tab, 3 Refill(s), Pharmacy: [facility], 193.04, cm, 08/29/21 17:30:00 CDT, Height, 157.727, kg, 08/29/21 17:30:00 CDT, Weight Tex Henryann apixaban 5 MG Oral Tablet [Eliquis] 12-27 16:37: 00 No 5 mg, PO, Q12H, tab, 0 Refill(s), For Atrial Fibrilatio n Tex kang Max 3 ML Insulin, Aspart, Human 100 UNT/ML Pen Injector [NovoLog] 12-27 16:36: 00 Yes 2 unit, 0 Refill(s) Tex pearl Santana 3 ML Insulin Glargine 100 UNT/ML Pen Injector [Basaglar] 12-27 16:36: 00 Yes 40 unit, SUB-Q, Bedtime, # 12 mL, 3 Refill(s) Halishyla pearl Santana insulin aspart (NovoLOG FLEXPEN) 100 UNIT/ML pen insulin aspart (NovoLOG FLEXPEN) 100 UNIT/ML pen 12-27 00:00: 00 Yes 2 unit, 0 Refill(s) Tex pearl Santana Epic insulin glargine (Basaglar KwikPen) 100 UNIT/ML pen insulin glargine (Basaglar KwikPen) 100 UNIT/ML pen 12-27 00:00: 00 Yes 20 unit, SUB-Q, Bedtime, # 12 mL, 3 Refill(s) Tex pearl Santana Epic apixaban (Eliquis) 5 MG tablet 12-17 11:31: 02 Yes 5mg Q.5D Take 5 mg by mouth 2 (two) times a day. [facility] empaglifloz in (Jardiance) 25 MG 12-17 11:31: 02 Yes 1{tbl} QD Take 1 tablet by mouth 1 (one) time each day. [facility] levothyroxi ne (Synthroid, Levoxyl) 50 MCG tablet 12-17 11:31: 02 Yes 50ug Take 50 mcg by mouth 1 (one) time each day before breakfast. [facility] losartan 25 mg oral tablet 2020-11 20:40: 00 Yes 25 mg = 1 tab, PO, Daily, # 90 tab, 1 Refill(s), Pharmacy: [facility], 193.04, cm, 07/25/21 3:56:00 CDT, Height, 161.534, kg, 07/23/21 9:12:00 CDT, Weight Tex pearl Santana Furosemide 40 MG Oral Tablet 2020-11 20:38: 00 Yes 40 mg = 1 tab, PO, BID Diuretic, # 180 tab, 3 Refill(s), Pharmacy: [facility], 193.04, cm, 07/25/21 3:56:00 CDT, Height, 161.534, kg, 07/23/21 9:12:00 CDT, Weight Tex pearl Santana AMIODarone 200 mg oral tablet 2020-11 20:38: 00 Yes 400 mg = 2 tab, PO, BID, # 360 tab, 3 Refill(s), Pharmacy: [facility], 193.04, cm, 07/25/21 3:56:00 CDT, Height, 161.534, kg, 07/23/21 9:12:00 CDT, Weight Tex pearl Santana clopidogrel 75 mg oral tablet 2020-11 20:37: 00 Yes 75 mg = 1 tab, PO, Daily, # 90 tab, 3 Refill(s), Pharmacy: [facility], 193.04, cm, 07/25/21 3:56:00 CDT, Height, 161.534, kg, 07/23/21 9:12:00 CDT, Weight Tex kang Max levothyroxi ne (Synthroid, Levoxyl) 50 MCG tablet 08-08 09:14: 13 Yes 50ug Take 50 mcg by mouth 1 (one) time each day before breakfast. [facility] No known medications 08-08 09:14: 13 No No known medication s [facility] apixaban (Eliquis) 5 MG tablet 08-08 09:10: 00 Yes 5mg Q.5D Take 5 mg by mouth 2 (two) times a day. [facility] empaglifloz in (Jardiance) 25 MG 08-08 09:10: 00 Yes 1{tbl} QD Take 1 tablet by mouth 1 (one) time each day. [facility] Jardiance 07-30 14:00: 00 No Notes: (Same as: Jardiance) Halishyla pearl Max Lipitor 07-30 02:00: 00 No Notes: (Same as: Lipitor) [place] Santana potassium chloride 20 mEq oral tablet, extended release (KCL) 07-29 22:00: 00 No Notes: (Same as: K-Dur 20) "Do Not Crush" Give with food and full glass of water For patients unable to swallow tablet, dissolve in one half glass of water. Allow about 2 minutes for the tablets to disintegra te. Stir before giving to prepare slurry and administer . Please exclude Patient s with feeding tube less than 14 German (Dobhoff, J-tube etc) and pediatric and patients. [place] Santana Furosemide 07-29 21:00: 00 No Notes: (Same as: Lasix) May cause GI upset. Give with food or milk. Tex Santana tramadol hydrochlori de 50 MG Oral Tablet 07-29 17:22: 00 Yes 50 mg = 1 tab, PO, Q6H, # 10 tab, 0 Refill(s), Pharmacy: [facility], 193.04, cm, 07/25/21 3:56:00 CDT, Height, 161.534, kg, 07/23/21 9:12:00 CDT, Weight [place] Santana levothyroxi ne 50 mcg (0.05 mg) oral tablet 07-29 15:04: 00 Yes 50 microgram = 1 tab, PO, Q630AM, # 30 tab, 0 Refill(s), Pharmacy: [facility], 193.04, cm, 07/25/21 3:56:00 CDT, Height, 161.534, kg, 07/23/21 9:12:00 CDT, Weight [place] Santana sacubitril 24 MG / valsartan 26 MG Oral Tablet [Entresto] 07-29 15:04: 00 Yes 1 tab, PO, Q12H, # 60 tab, 0 Refill(s), Pharmacy: [facility], 193.04, cm, 07/25/21 3:56:00 CDT, Height, 161.534, kg, 07/23/21 9:12:00 CDT, Weight Memoria l Max tamsulosin 0.4 mg oral capsule 07-29 15:04: 00 Yes 0.4 mg = 1 cap, PO, After Breakfast, # 30 cap, 0 Refill(s), Pharmacy: [facility], 193.04, cm, 07/25/21 3:56:00 CDT, Height, 161.534, kg, 07/23/21 9:12:00 CDT, Weight Memoria l Max Furosemide 40 MG Oral Tablet 07-29 15:03: 00 Yes 40 mg = 1 tab, PO, BID Diuretic, # 60 tab, 0 Refill(s), Pharmacy: [facility], 193.04, cm, 07/25/21 3:56:00 CDT, Height, 161.534, kg, 07/23/21 9:12:00 CDT, Weight Memoria l Max carvedilol 6.25 mg oral tablet 07-29 15:03: 00 Yes 6.25 mg = 1 tab, PO, Q12H, # 60 tab, 0 Refill(s), Pharmacy: [facility], 193.04, cm, 07/25/21 3:56:00 CDT, Height, 161.534, kg, 07/23/21 9:12:00 CDT, Weight Memoria l Max clopidogrel 75 mg oral tablet 07-29 15:03: 00 Yes 75 mg = 1 tab, PO, Daily, # 60 tab, 0 Refill(s), Pharmacy: [facility], 193.04, cm, 07/25/21 3:56:00 CDT, Height, 161.534, kg, 07/23/21 9:12:00 CDT, Weight Memoria l Max ferrous sulfate 325 MG Oral Tablet 07-29 15:03: 00 Yes 325 mg = 1 tab, PO, Daily, # 30 tab, 0 Refill(s), Pharmacy: [facility], 193.04, cm, 07/25/21 3:56:00 CDT, Height, 161.534, kg, 07/23/21 9:12:00 CDT, Weight [place] Santana apixaban 5 mg oral tablet 07-29 15:02: 00 Yes 5 mg = 1 tab, PO, Q12H, For Atrial Fibrillati on, # 60 tab, 0 Refill(s), Pharmacy: [facility], 193.04, cm, 07/25/21 3:56:00 CDT, Height, 161.534, kg, 07/23/21 9:12:00 CDT, Weight [place] Santana AMIODarone 200 mg oral tablet 07-29 15:01: 00 Yes 400 mg = 2 tab, PO, BID, # 90 tab, 0 Refill(s), Pharmacy: [facility], 193.04, cm, 07/25/21 3:56:00 CDT, Height, 161.534, kg, 07/23/21 9:12:00 CDT, Weight Tex Santana Plavix 07-29 14:00: 00 No Notes: (Same As: Plavix) [place] Santana ferrous sulfate 07-29 14:00: 00 No Notes: Give with food. iron elemental [id number] as ferrous sulfate Dose=___mg elemental iron Tex Santana Furosemide 07-29 13:09: 00 No Notes: (Same as: Lasix) MEDICATION WASTE Product Size: 40 mg Product Wasted: ___ mg [place] Santana Potassium Chloride 07-29 13:04: 00 No Notes: (Same as: K-Dur 20) "Do Not Crush" Give with food and full glass of water For patients unable to swallow tablet, dissolve in one half glass of water. Allow about 2 minutes for the tablets to disintegra te. Stir before giving to prepare slurry and administer . Please exclude Patient s with feeding tube less than 14 German (Dobhoff, J-tube etc) and pediatric and patients. Tex Snatana Lasix 07-29 02:00: 00 No Notes: (Same as: Lasix) Tex Henryann carvedilol (Coreg) 6.25 MG tablet 07-29 00:00: 00 Yes 1{tbl} Q12H Take 1 tablet by mouth every 12 (twelve) hours. [facility] clopidogrel (Plavix) 75 MG tablet 07-29 00:00: 00 Yes 1{tbl} QD Take 1 tablet by mouth 1 (one) time each day. [facility] tamsulosin (Flomax) 0.4 MG 24 hr capsule 07-29 00:00: 00 Yes 1{capsu le} QD Take 1 capsule by mouth 1 (one) time each day. [facility] traMADol (Ultram) 50 MG tablet 07-29 00:00: 00 Yes 1{tbl} Q6H Take 1 tablet by mouth every 6 (six) hours. [facility] Lasix 07-28 21:00: 00 No Notes: (Same as: Lasix) May cause GI upset. Give with food or milk. [place] Santana Potassium Chloride 07-28 16:31: 00 No Notes: (Same as: K-Dur 20) "Do Not Crush" Give with food and full glass of water For patients unable to swallow tablet, dissolve in one half glass of water. Allow about 2 minutes for the tablets to disintegra te. Stir before giving to prepare slurry and administer . Please exclude Patient s with feeding tube less than 14 German (Dobhoff, J-tube etc) and pediatric and patients. [place] Santana Flomax 07-28 13:30: 00 No Notes: (Same As: Flomax) "Do Not Crush" Tex Santana Eliquis 07-28 02:00: 00 No Notes: Same as: Eliquis [place] Furosemide 07-27 21:00: 00 No Notes: (Same as: Lasix) Halishyla pearl Santana Thyroxine 07-27 11:30: 00 No Notes: Take 1 hour before or 2 hours after meal; Enteral feeds may interefere with the absorption of this medication .(Same as:Levothr oid, Synthroid) Tex Santana carvedilol 07-27 02:00: 00 No Notes: Give with food. (Same As: Coreg) Tex Santana sacubitril 24 MG / valsartan 26 MG Oral Tablet [Entresto] 07-27 02:00: 00 No Notes: (Same as: Entresto) Avoid in patients with history of angioedema due to MIKE inhibitor or ARB therapy. Do not use concomitan tly or within 36 hours of MIKE inhibitors Tex kang Thida BD Normal Saline Flush 07-26 21:52: 00 No Notes: (Same as: BD Posiflush) Tex pearl Max Sodium Chloride 0.9% IV 07-26 21:52: 00 No 250 mL, Route: IVPB, Start date: 07/26/21 16:52:00 CDT, Duration: 30 day, Stop date: 08/25/21 16:51:00 CDT, PRN Line Flush, 0 Tex Santana heparin sodium, porcine 2500 UNT/ML Injectable Solution 07-26 21:00: 00 No Notes: porcine heparin Halishyla kang Max Losartan 07-26 20:27: 00 No 25 mg, Route: PO, Daily, Dosing Weight 161.534, kg, Priority: NOW, Start date: 07/26/21 15:27:00 CDT, Duration: 30 day, Stop date: 08/25/21 9:00:00 CDT Tex Santana Lasix 07-26 18:49: 00 No Notes: (Same as: Lasix) Halishyla pearl Santana Insulin Lispro 07-26 16:30: 00 No Notes: (Same as: Humalog) Roll in palms of hands gently; Do not shake vigorously . WASTE: F/P - Black; E - Municipal Trash Bin Stable for 28 days at room temperatur e. Expires in days from ____Date Tex Santana carvedilol 07-26 14:29: 00 No Notes: Give with food. (Same As: Coreg) Tex Santana Insulin Glargine 07-26 14:00: 00 No 40 unit, Route: SUB-Q, Daily, Dosing Weight 161.534, kg, Start date: 07/26/21 9:00:00 CDT, Duration: 30 day, Stop date: 08/24/21 9:00:00 CDT Tex Santana gabapentin 07-26 14:00: 00 No Notes: (Same as: Neurontin) Tex Santana Bisacodyl 07-26 13:57: 00 No Notes: (Same As: Dulcolax, Bisco-Lax) Tex Santana Furosemide 07-26 13:54: 00 No Notes: (Same as: Lasix) Tex Santana atorvastati n 07-26 02:00: 00 No Notes: (Same as: Lipitor) Tex Santana Insulin Glargine 07-25 23:15: 00 No Notes: (Same as: Lantus) Do not hold insulin without contacting prescriber WASTE: F/P - Black; E - Municipal Trash Bin "single patient use only" Stable for 28 days at room temperatur e Expires in days from ____Date Tex Santana Dextrose 50% Syringe (D50W) 07-25 22:43: 00 No 12.5 gm, 25 mL, Route: IVP, Drug Form: INJ, Dosing Weight 161.534, kg, PRN, PRN Blood Glucose Results, Start date: 07/25/21 17:43:00 CDT, Duration: 30 day, Stop date: 08/24/21 17:42:00 CDT, 0 [place] Santana Glucagon 07-25 22:43: 00 No 1 mg, Route: IM, Drug form: PDR/INJ, PRN, Dosing Weight 161.534, kg, PRN Blood Glucose Results, Start date: 07/25/21 17:43:00 CDT, Duration: 30 day, Stop date: 08/24/21 17:42:00 CDT, 0 [place] Santana Insulin Lispro 07-25 22:43: 00 No Notes: (Same as: Humalog) Roll in palms of hands gently; Do not shake vigorously . WASTE: F/P - Black; E - Municipal Trash Bin Stable for 28 days at room temperatur e. Expires in days from ____Date Tex Santana Tramadol 07-25 21:00: 00 No Notes: Not to exceed 400mg/day. (Same As: Ultram) Tex Santana albumin human 5% intravenous solution 07-25 17:32: 00 No 250 mL, Route: IV, Dosing Weight 161.534, kg, ONCE, Start date: 07/25/21 12:32:00 CDT, Stop date: 07/25/21 12:32:00 CDT, Indication : Non-hemorr hagic shock Tex Santana Reglan 07-25 17:00: 00 No Notes: (Same as: Reglan) Tex Santana Acetaminoph en 07-25 15:51: 00 No Notes: Do not exceed 4 gm/day. (Same as: Tylenol) Tex Santana Zofran 07-25 15:51: 00 No Notes: (Same as: Zofran) MEDICATION WASTE Product Size: 4 mg Product Wasted: ___ mg Tex Santana Fentanyl 07-25 15:48: 00 No 50 microgram, Route: IV, ONCE, Dosing Weight 161.534, kg, Start date: 07/25/21 10:48:00 CDT, Stop date: 07/25/21 10:48:00 CDT Tex Santana Ipratropium [place] 0.2 MG/ML Inhalant Solution 07-25 15:06: 00 No Notes: SEE RT DOCUMENTAT ION (Same as:Atroven t) Tex Santana Thyroxine 07-25 14:00: 00 No Notes: (Same as: Synthroid) Reconstitu te with 5ml of NS. Final concentrat ion = 20 micrograms /ml. Use immediatel y after reconstitu tion and discard remaining solution. Tex Santana heparin sodium, porcine 2500 UNT/ML Injectable Solution 07-25 14:00: 00 No Notes: porcine heparin Tex Santana docusate sodium 07-25 14:00: 00 No Notes: (Same as: Colace) (Do Not Crush) Tex Santana Miralax 07-25 14:00: 00 No Notes: Dissolve in 8 oz of water or juice. (Same as: Miralax) Tex Santana sennosides, MCC 8.6 MG Oral Tablet 07-25 14:00: 00 No Notes: (Same as: Senokot) Tex Santana Aspirin 81 MG Enteric Coated Tablet 07-25 14:00: 00 No Notes: Do not crush or chew. (Same As: Ecotrin) Tex Santana Amiodarone 07-25 14:00: 00 No Notes: (Same as: Cordarone) Tex Santana Flexeril 07-25 14:00: 00 No Notes: (Same As: Flexeril) Tex Santana Lasix 07-25 13:33: 00 No Notes: (Same as: Lasix) Tex Santana 72 HR Scopolamine 0.0139 MG/HR Transdermal Patch 07-25 13:22: 00 No Notes: Remove old patch before applicatio n of new patch Change patch every 72 hours (Same as: Transderm- Scop) Tex Santana Vasopressin (MCC) 07-25 02:46: 00 No Notes: (Same As: Pitressin, Vasostrict ) Tex Santana albumin human 25% intravenous solution 07-25 02:46: 00 No Notes: Lot #: ___ Mfg: (Same as: Plasbumin- 25) "blood product derivative " WASTE: F/P - Red; E -Red MEDICATION WASTE Product Size: 25 gm Product Wasted: ___ gm Tex Santana vancomycin + Sodium Chloride 0.9% IV 500 mL 07-25 02:00: 00 No 2001 mg: infuse over 2.5 hours For adult patients only: Round to nearest 250 mg per Medical Staff approval MEDICATION WASTE Product Size: 1000 mg Product Wasted: ___ mg Tex Santana albumin human 5% intravenous solution 07-24 23:45: 00 No Notes: LOT#: ___ Mfg: WASTE: F/P - Red; E -Red (Same as: Albuminar) "blood product derivative " Tex Santana Aspirin 07-24 23:22: 00 No Notes: Take with food. Tex Santana Maxipime 07-24 23:00: 00 No Notes: (Same As: Maxipime) MEDICATION WASTE Product Size: 1000 mg Product Wasted: ___ mg Tex Santana Fentanyl 07-24 22:00: 00 No 1,000 microgram, 20 mL, Rate: Titrate, Start Dose: 50 microgram/ hr, Titration: 25 microgram/ hour every 15 minutes, Goal(s): RASS -1, Max Dose: 300 microgram/ hr, Route: IV, Dosing Weight 161.534 kg, Total Volume: 20, Start date: 07/24/21 17:00:00 CDT,... Tex Santana albumin human 25% intravenous solution 07-24 21:39: 00 No Notes: LOT#: ___ Mfg: WASTE: F/P - Red; E -Red (Same as: Albuminar) "blood product derivative " Tex Santana albumin human 25% intravenous solution 07-24 21:30: 00 No Notes: Lot #: ___ Mfg: (Same as: Plasbumin- 25) "blood product derivative " WASTE: F/P - Red; E -Red MEDICATION WASTE Product Size: 25 gm Product Wasted: ___ gm Tex Santana DDAVP 07-24 21:00: 00 No Notes: (Same As: DDAVP) MEDICATION WASTE Product Size: 4 microgram Product Wasted: ___ microgram Tex Santana sodium bicarbonate 8.4% 07-24 21:00: 00 No Notes: (sodium bicarb 8.4% (1 mEq/ml) 50 ml syringe) Tex Santana Norepinephr ine 07-24 20:30: 00 No Notes: Same as: Levophed. Administer by either central venous catheter or peripheral ly-inserte d central catheter (PICC) line. Tex Santana Epinephrine 07-24 20:30: 00 No Notes: (Same as: Adrenalin) Suremed - Injectable drug used as inhalation treatment. MEDICATION WASTE Product Size: 1 mg Product Wasted: ___ mg Tex Santana Milrinone 07-24 20:30: 00 No Notes: (Same as:Primaco r) Final conc = 0.2 mg/ml. Premix solution. Tex Santana Dexmedetomi dine 07-24 20:30: 00 No Notes: Use the following cdm for [id number]. Tex Santana vecuronium (ANES) 07-24 20:20: 00 No Route: IV, Drug form: INJ, ONCE, Stop date: 07/24/21 15:20:00 CDT Tex Santana Potassium Chloride 07-24 20:13: 00 No Notes: (Same as: KCL) 10 mEq/100ml product recommende d for peripheral line administra tion. Infuse no faster than 10 mEq/hr if given peripheral ly. Tex Santana sodium phosphate 07-24 20:13: 00 No Notes: Infuse over 4 hour. Do not infuse phosphorou s concurrent ly in the same line as TPN or IVF that contains calcium. For double lumen central lines, phosphorou s may be infused in a separate lumen from TPN. Tex Santana potassium phosphate 07-24 20:13: 00 No Notes: (Same as: K Phosphate. ) Do not infuse phosphorou s concurrent ly in the same line as TPN or IVF that contains calcium. For double lumen central lines, phosphorou s may be infused in a separate lumen from TPN. 1 mMol phoshate has 1.47 mEq potassium Infuse over 4 hours Tex Santana potassium phosphate-s odium phosphate 250 mg-280 mg-160 mg oral powder for reconstitut ion 07-24 20:13: 00 No Notes: (Same as: Phos-NaK) Each 1.5 gm pkt has 250mg phosphorou s. Mix w/2.5oz water and stir. Tex Santana Magnesium Sulfate 07-24 20:13: 00 No Notes: WASTE: F/P - Sink; E - Municipal Trash Bin Tex Santana Magnesium Oxide 07-24 20:13: 00 No Notes: (Same as: Mag-Ox 400) Magnesium oxide 504ub=534v g elemental magnesium Dose=____m g magnesium oxide (___mg elemental magnesium) Tex Santana Calcium Gluconate 07-24 20:13: 00 No Notes: WASTE: F/P - Sink; E - Municipal Trash Bin Tex Santana calcium carbonate 500 mg (200 mg elemental calcium) oral tablet 07-24 20:13: 00 No Notes: (Same As: Tums) Calcium Carbonate 500 mg = 200 mg elemental calcium Dose = mg calcium carbonate ( mg elemental calcium) Tex Santana protamine (ANES) 07-24 19:54: 00 No Route: IV, Drug form: INJ, ONCE, Stop date: 07/24/21 14:54:00 CDT Tex Santana potassium chloride (ANES) 07-24 19:28: 00 No Route: IV, Drug form: INJ, ONCE, Stop date: 07/24/21 14:28:00 CDT Tex Santana DDAVP 07-24 19:18: 00 No Notes: (Same As: DDAVP) MEDICATION WASTE Product Size: 4 microgram Product Wasted: ___ microgram Tex Henryann cefepime (ANES) 07-24 19:17: 00 No Route: IV, Drug form: INJ, ONCE, Stop date: 07/24/21 14:17:00 CDT Tex Santana vancomycin (ANES) 07-24 19:17: 00 No Route: IV, Drug form: INJ, ONCE, Stop date: 07/24/21 14:17:00 CDT Tex Santana Insulin regular 100 unit + Sodium Chloride 0.9% (titrate) 99 mL 07-24 19:14: 00 No Notes: (Same as: Humulin R) Roll in palms of hands gently; Do not shake vigorously . WASTE: F/P - Black; E - Municipal Trash Bin Stable for 31 days at room temperatur e Expires in days from ____Date Tex Santana Dextrose 50% Syringe (D50W) 07-24 19:14: 00 No 25 gm, 50 mL, Route: IVP, Drug Form: INJ, Dosing Weight 161.534, kg, PRN, PRN Blood Glucose Results, Start date: 07/24/21 14:14:00 CDT, Duration: 30 day, Stop date: 08/23/21 14:13:00 CDT, 0 Tex Santana norepinephr ine (ANES) 32 microgram 07-24 19:05: 00 No Route: IV, Drug form: INJ, Start date: 07/24/21 14:05:00 CDT, Stop date: 07/24/21 15:05:00 CDT Tex Santana calcium chloride (ANES) 07-24 18:51: 00 No Route: IV, Drug form: INJ, ONCE, Stop date: 07/24/21 13:51:00 CDT Tex Santana protamine (ANES) 10 mg 07-24 18:24: 00 No Route: IV, Drug form: INJ, Start date: 07/24/21 13:24:00 CDT, Stop date: 07/24/21 14:24:00 CDT Tex Santana EPINEPHrine (ANES) 16 microgram 07-24 18:13: 00 No Route: IV, Drug form: INJ, Start date: 07/24/21 13:13:00 CDT, Stop date: 07/24/21 14:13:00 CDT Memshyla pearl Max sodium chloride (ANES) 48 mL + dexmedetomi dine (ANES) 200 microgram 07-24 18:01: 00 No Route: IV, Drug form: INJ, Start date: 07/24/21 13:01:00 CDT, Stop date: 07/24/21 14:01:00 CDT Memshyla kang Thida irrigation solution (ANES) 1000 mL 07-24 17:16: 00 No Route: IV, Total Volume: 1,000, Start date: 07/24/21 12:16:00 CDT, Stop date: 07/24/21 13:16:00 CDT Tex Santana Insulin regular (ANES) 07-24 16:22: 00 No Route: IV, Drug form: INJ, ONCE, Stop date: 07/24/21 11:22:00 CDT Memshyla kang Max heparin (ANES) 07-24 16:12: 00 No Route: IV, Drug form: INJ, ONCE, Stop date: 07/24/21 11:12:00 CDT Tex Santana AMIODarone (ANES) 50 mg 07-24 16:12: 00 No Route: IV, Drug form: INJ, Start date: 07/24/21 11:12:00 CDT, Stop date: 07/24/21 12:12:00 CDT Memshyla Santana phenylephri ne (ANES) 07-24 15:40: 00 No Route: IV, Drug form: INJ, ONCE, Stop date: 07/24/21 10:40:00 CDT Memshyla Santana Amicar (ANES) 07-24 15:40: 00 No Route: IV, Drug form: INJ, ONCE, Stop date: 07/24/21 10:40:00 CDT Memshyla Santana propofol (ANES) 07-24 15:35: 00 No Route: IV, Drug form: INJ, ONCE, Stop date: 07/24/21 10:35:00 CDT Memshyla pearl Max succinylcho line (ANES) 07-24 15:35: 00 No Route: IV, Drug form: INJ, ONCE, Stop date: 07/24/21 10:35:00 CDT Memshyla Santana midazolam (ANES) 07-24 15:02: 00 No Route: IV, Drug form: SOLN, ONCE, Stop date: 07/24/21 10:02:00 CDT Memshyla Santana fentaNYL (ANES) 07-24 15:02: 00 No Route: IV, Drug form: INJ, ONCE, Stop date: 07/24/21 10:02:00 CDT Tex Santana vecuronium (ANES) 07-24 15:02: 00 No Route: IV, Drug form: INJ, ONCE, Stop date: 07/24/21 10:02:00 CDT Tex Santana AMIODarone (ANES) 900 mg 07-24 14:08: 00 No Route: IV, Drug form: INJ, Start date: 07/24/21 9:08:00 CDT, Stop date: 07/24/21 10:08:00 CDT Tex Santana milrinone (ANES) 0.2 mg 07-24 13:54: 00 No Route: IV, Drug form: INJ, Start date: 07/24/21 8:54:00 CDT, Stop date: 07/24/21 9:54:00 CDT Tex Santana Insulin regular (ANES) 1 unit 07-24 13:47: 00 No Route: IV, Drug form: INJ, Start date: 07/24/21 8:47:00 CDT, Stop date: 07/24/21 9:47:00 CDT Tex Santana Amicar (ANES) 5000 mg + sodium chloride (ANES) 105 mL 07-24 13:26: 00 No Route: IV, Drug form: INJ, Dosing Weight 161.5, kg, Start date: 07/24/21 8:26:00 CDT, Stop date: 07/24/21 9:26:00 CDT Tex Santana AMIODarone 900 mg + Dextrose 5% in Water IV 482 mL 07-24 12:49: 00 No 2 mg/ml. Use Glass Bottle or Non PVC Bag "Use 0.22 micron in-line filter" MEDICATION WASTE Product Size: 900 mg Product Wasted: ___ mg Tex Santana Bupivacaine 07-24 12:39: 00 No Notes: (Same as: Exparel) NOT FOR IV use Postoperat hannah analgesia: [...] rotator cuff repair: 133 mg (10 mL) Tex Santana Isolyte S PH 7.4 (ANES) 1000 mL 07-24 12:35: 00 No Route: IV, Total Volume: 1,000, Start date: 07/24/21 7:35:00 CDT, Stop date: 07/24/21 8:35:00 CDT Tex Santana Sodium Chloride 0.9% (titrate) 250 mL 07-23 14:47: 00 No 250 mL, Rate: To prime line and flush remaining blood products., Dosing Weight 161.534, kg, Route: IV, Total Volume: 250, Priority: Routine, Start Date: 07/23/21 9:47:00 CDT, Duration: 1 day, Stop date: 07/24/21 9:46:00 CDT, Replace Every: 24 hr, 0 Tex Santana empaglifloz in 25 MG Oral Tablet [Jardiance] 07-19 15:36: 00 Yes 25 mg = 1 tab, PO, QAM, 0 Refill(s) Tex Santana 0.25 MG, 0.5 MG Dose 1.5 ML semaglutide 1.34 MG/ML Pen Injector [Ozempic] 07-19 15:35: 00 Yes 0.5 mg =, SUB-Q, qWeek, 0 Refill(s) Tex Santana Tresiba 07-19 15:34: 00 Yes 40 unit, SUB-Q, Daily, 0 Refill(s) Tex Santana semaglutide (Ozempic, 0.25 or 0.5 MG/DOSE,) 2 MG/1.5ML solution pen-injecto r semaglutide (Ozempic, 0.25 or 0.5 MG/DOSE,) 2 MG/1.5ML solution pen-injecto r 07-19 00:00: 00 Yes .5mg 0.5 mg =, SUB-Q, qWeek, 0 Refill(s) Tex Santana Epic empaglifloz in (Jardiance) 25 MG empaglifloz in (Jardiance) 25 MG 07-19 00:00: 00 Yes 25mg 25 mg = 1 tab, PO, QAM, 0 Refill(s) Tex Santana Epic empaglifloz in (Jardiance) 25 MG 07-16 14:23: 03 Yes 1{tbl} QD Take 1 tablet by mouth 1 (one) time each day. [facility] apixaban (Eliquis) 5 MG tablet 07-16 14:21: 39 Yes 5mg Q.5D Take 5 mg by mouth 2 (two) times a day. [facility] Insulin Regular Human (RELION R IJ) 07-16 14:21: 11 07-16 00:00 :00 No 20U Q.5D Inject 20 Units as directed 2 (two) times a day. [facility] empaglifloz in (Jardiance) 25 MG 07-16 09:23: 03 Yes 1{tbl} QD Take 1 tablet by mouth 1 (one) time each day. [facility] apixaban (Eliquis) 5 MG tablet 07-16 09:21: 39 Yes 5mg Q.5D Take 5 mg by mouth 2 (two) times a day. [facility] Ozempic, 0.25 or 0.5 MG/DOSE, 2 MG/1.5ML solution pen-injecto r 07-09 00:00: 00 Yes .5mg Inject 0.5 mg under the skin 1 (one) time per week. [facility] insulin degludec (Tresiba FlexTouch) 200 UNIT/ML injection 06-18 00:00: 00 Yes 38U QD Inject 38 Units under the skin 1 (one) time each day. [facility] semaglutide (Ozempic, 0.25 or 0.5 MG/DOSE,) 2 MG/1.5ML solution pen-injecto r 06-18 00:00: 00 Yes .5mg 0.[address] [facility] apixaban (Eliquis) 5 MG tablet 06-11 14:25: 25 Yes 5mg Q.5D Take 5 mg by mouth 2 (two) times a day. [facility] insulin NPH-insulin regular (NovoLIN) (70-30) 100 UNIT/ML injection 06-11 14:25: 25 Yes Inject under the skin 2 (two) times a day before meals. [facility] Insulin Regular Human (RELION R IJ) 06-11 14:25: 25 Yes 20U Q.5D Inject 20 Units as directed 2 (two) times a day. [facility] Insulin NPH Isophane & Regular (NOVOLIN 70/30 SC) 06-11 14:21: 45 06-11 00:00 :00 No Inject under the skin. [facility] insulin NPH-insulin regular (NovoLIN) (70-30) 100 UNIT/ML injection 06-11 09:25: 25 Yes Inject under the skin 2 (two) times a day before meals. [facility] Sodium Chloride 0.9% IV 750 mL 06-05 17:42: 00 No 750 mL, Rate: 75 ml/hr, Infuse over: 10 hr, Route: IV, Dosing Weight 166.273 kg, Total Volume: 750, Start date: 06/05/21 12:42:00 CDT, Duration: 10 hr, Stop date: 06/05/21 22:41:00 CDT, BSA: 3.02 m2, 0 [place] Santana NovoLIN 70/30 06-05 15:45: 00 Yes 50 unit, SUB-Q, BID, 0 Refill(s) Tex Santana Rhiannon 06-05 15:44: 00 No See Instructio ns, PO, 0 Refill(s) [place] Santana insulin NPH-insulin regular (NovoLIN) (70-30) 100 UNIT/ML injection 06-04 18:30: 53 Yes Inject under the skin 2 (two) times a day before meals. [facility] Insulin NPH Isophane & Regular (NOVOLIN 70/30 SC) 06-04 18:30: 53 Yes Inject under the skin. [facility] apixaban (Eliquis) 5 MG tablet 06-04 18:29: 13 Yes 5mg Q.5D Take 5 mg by mouth 2 (two) times a day. [facility] apixaban (Eliquis) 5 MG tablet 05-23 16:36: 01 Yes 5mg Q.5D Take 5 mg by mouth 2 (two) times a day. [facility] furosemide (Lasix) 80 MG tablet 04-28 00:00: 00 Yes 1{tbl} Q.5D Take 1 tablet by mouth 2 (two) times a day. [facility] atorvastati n (Lipitor) 40 MG tablet 04-28 00:00: 00 Yes 40mg Take 40 mg by mouth every night. [facility] losartan (Cozaar) 25 MG tablet 04-28 00:00: 00 Yes .5{tbl} QD Take 0.5 tablets by mouth 1 (one) time each day. [facility] furosemide (Lasix) 40 MG tablet 04-28 00:00: 00 Yes 1{tbl} Q.5D Take 1 tablet by mouth 2 (two) times a day. [facility] Saline Flush 0.9% 04-18 14:00: 00 No Notes: (Same as: BD Posiflush) [place] Santana Saline Flush 0.9% 04-18 12:50: 00 No Notes: (Same as: BD Posiflush) Tex Santana AMIODarone 200 mg oral tablet 03-22 17:58: 00 Yes 200 mg = 1 tab, PO, Daily, # 90 tab, 1 Refill(s), Pharmacy: [id number], 185.42, cm, 03/22/21 11:01:00 CDT, Height, 164.545, kg, 03/22/21 11:01:00 CDT, Weight Tex Santana Regular Insulin, Human 100 UNT/ML Injectable Solution 03-22 16:09: 00 Yes 10 unit, SUB-Q, BID, # 10 mL, 0 Refill(s) Tex Santana Aspirin 81 MG Enteric Coated Tablet 03-22 16:08: 00 Yes 81 mg = 1 tab, PO, Daily, # 90 tab, 3 Refill(s) Tex Santana Metoprolol Succinate ER 100 mg oral tablet, extended release 03-22 16:07: 00 Yes 100 mg = 1 tab, PO, BID, # 90 tab, 3 Refill(s) Tex Santana losartan 25 mg oral tablet 03-22 16:07: 00 Yes 12.5 mg = 0.5 tab, PO, Daily, # 90 tab, 1 Refill(s) Tex Santana furosemide 80 mg oral tablet 03-22 16:07: 00 Yes 80 mg = 1 tab, PO, BID, # 90 tab, 0 Refill(s) Tex Santana atorvastati n 40 MG Oral Tablet [Lipitor] 03-22 16:06: 00 Yes 40 mg = 1 tab, PO, Bedtime, # 90 tab, 0 Refill(s) Tex Santana Digoxin 0.125 MG Oral Tablet 03-22 16:06: 00 Yes 125 microgram = 1 tab, PO, Daily, Hold if HR <50., # 90 tab, 1 Refill(s) Tex Santana apixaban 5 MG Oral Tablet [Eliquis] 03-22 16:04: 00 Yes 5 mg, PO, Q12H, tab, 0 Refill(s), For Atrial Fibrilatio n Tex Santana Pacerone 200 MG tablet 2021-0 5-07 00:00: 00 Yes 200mg QD Take 200 mg by mouth 1 (one) time each day. [facility] atorvastati n 40 mg tablet 12-13 00:00: 00 Yes [id number] 40mg Take 1 tablet by mouth at bedtime. [facility] digoxin 125 mcg (0.125 mg) tablet 12-13 00:00: 00 Yes [id number] 125ug Take 1 tablet by mouth daily. [facility] furosemide 80 mg tablet 12-13 00:00: 00 Yes [id number] 80mg Take 1 tablet by mouth every morning and evening. [facility] losartan 25 mg tablet 12-13 00:00: 00 Yes [id number] 12.5mg Take 0.5 tablets by mouth daily. [facility] aspirin 81 MG chewable tablet 12-13 00:00: 00 Yes 81mg QD Chew 81 mg 1 (one) time each day. [facility] digoxin 125 mcg (0.125 mg) tablet 2019-11 00:00: 00 12-13 00:00 :00 No [id number] 125ug Take 1 tablet by mouth daily. [facility] insulin NPH and regular human 70-30 (HUMULIN 70-30 U-100 INSULIN) 100 unit/mL (70-30) injection 40 Units 2019-11 02:00: 00 Yes 40U 40 Units, Subcutaneo us, BID, First dose (after last modificati on) on Thu10/03/20 at 2000, Until Discontinu ed, Routine [facility] digoxin 125 mcg tablet 2019-11 00:00: 00 12-13 00:00 :00 No [id number] .125mg Take 1 tablet by mouth daily. [facility] losartan 25 mg tablet 2019-11 00:00: 00 12-13 00:00 :00 No [id number] 12.5mg Take 0.5 tablets by mouth daily. [facility] Sliding Scale Insulin - Lispro (HumaLOG) + Fsbg Testing 2019-11 20:00: 00 Yes Subcutaneo us, TIDAC, First dose (after last modificati on) on Thu10/03/20 at 1400, Until Discontinu ed, Routine [facility] insulin lispro (human) (HumaLOG U-100) injection 5 Units 2019-11 18:45: 00 10-03 17:45 :00 No 5U 5 Units, Subcutaneo us, ONCE, 1 dose, Thu10/03/20 at 1245, Routine [facility] KCL (KLOR-CON M20) tablet 20 mEq 2019-11 18:15: 00 10-03 17:47 :00 No 20meq 20 mEq, Oral, ONCE, 1 dose, Thu10/03/20 at 1215, Routine [facility] KCL (KLOR-CON M20) tablet 20 mEq 2019-11 15:00: 00 Yes 20meq 20 mEq, Oral, DAILY, First dose on Thu10/03/20 at 0900, Until Discontinu ed, Routine [facility] potassium chloride 20 mEq/100 mL (KCL) 20 mEq/100 mL 20 mEq piggyback 2019-11 13:30: 00 10-03 13:40 :00 No 20meq 20 mEq, IV Piggyback, ONCE, 1 dose, Thu10/03/20 at 0730 [facility] apixaban 5 mg tablet 2019-11 00:00: 00 Yes [id number] 5mg Take 1 tablet by mouth 2 (two) times daily. Indication s: prevention of thromboemb olism in paroxysmal atrial fibrillati on [facility] nitroglycer in 0.4 mg sublingual tablet 2019-11 00:00: [id number] 1 tablet under the tongue every 5 (five) minutes as needed for Chest pain. [facility] aspirin 81 mg chewable tablet 2019-11 00:00: 00 12-13 00:00 :00 No [id number] 81mg Take 1 tablet by mouth daily. [facility] atorvastati n 40 mg tablet 2019-11 00:00: 00 12-13 00:00 :00 No [id number] 40mg Take 1 tablet by mouth at bedtime. [facility] furosemide 40 mg tablet 2019-11 00:00: 00 12-13 00:00 :00 No [id number] 80mg Take 2 tablets by mouth every morning and evening. [facility] metoprolol succinate XL 50 mg 24 hr tablet 2019-11 00:00: 00 10-10 00:00 :00 No [id number] 75mg Take 1.5 tablets by mouth 2 (two) times daily. [facility] furosemide 80 mg tablet 2019-11 00:00: 00 10-03 00:00 :00 No [id number] 80mg Take 1 tablet by mouth every morning and evening for 90 days. [facility] metoprolol succinate XL 25 mg 24 hr tablet 2019-11 00:00: 00 10-03 00:00 :00 No [id number] 75mg Take 3 tablets by mouth 2 (two) times daily for 90 days. [facility] Sliding Scale Insulin - Lispro (HumaLOG) + Fsbg Testing 2019-11 20:00: 00 10-03 19:16 :39 No Subcutaneo us, TID, First dose (after last modificati on) on Thu10/02/20 at 1400, Until Discontinu ed, Routine [facility] insulin NPH and regular human 70-30 (HUMULIN 70-30 U-100 INSULIN) 100 unit/mL (70-30) injection 40 Units 2019-11 15:30: 00 10-03 19:16 :39 No 40U 40 Units, Subcutaneo us, QAM+PM, First dose (after last modificati on) on Thu10/02/20 at 0930, Until Discontinu ed, Routine [facility] furosemide (LASIX) tablet 80 mg 2019-11 15:00: 00 Yes 80mg 80 mg, Oral, QAM+PM, First dose on Thu10/02/20 at 0900, Until Discontinu ed, [facility] 80 mg 2019-11 20:00: 00 10-02 14:59 :44 No 80mg 80 mg, IV Push, TID, First dose (after last modificati on) on Thu10/01/20 at 1400, Until Discontinu ed, [facility] tc 99m-tetrofo smin (MYOVIEW) injection 35 millicurie 2019-11 19:15: 00 10-01 19:05 :00 No 35mCi 35 millicurie , Intravenou s, ONCE, 1 dose, Thu10/01/20 at 1315, Routine [facility] insulin NPH and regular human 70-30 (HUMULIN 70-30 U-100 INSULIN) 100 unit/mL (70-30) injection 40 Units 2019-11 15:00: 00 10-02 15:21 :14 No 40U 40 Units, Subcutaneo us, QAM+PM, First dose on Thu10/01/20 at 0900, Until Discontinu ed, Routine [facility] KCL (KLOR-CON M20) tablet 20 mEq 2019-11 14:15: 00 10-01 13:43 :00 No 20meq 20 mEq, Oral, ONCE, 1 dose, Thu10/01/20 at 0815, Routine [facility] magnesium sulfate in water 2 gram/50 mL (4 %) infusion 2 g 2019-11 14:00: 00 10-01 13:42 :00 No 2g 2 g, IV Piggyback, ONCE, 1 dose, Thu10/01/20 at 0800, Routine [facility] metoprolol succinate XL (TOPROL XL) tablet 75 mg 2019-11 02:00: 00 Yes 75mg 75 mg, Oral, BID, First dose (after last modificati on) on Thu09/30/20 at 2000, Until Discontinu ed, Routine [facility] sulfur hexafluorid e microsphr (LUMASON) injection 5 mL 2019-11 18:30: 00 09-30 16:00 :00 No 5mL 5 mL, Intravenou s, ONCE, 1 dose, Elsie 09/30/20 at 1230, Routine
member of parliament approving Restricted medication : REJI NOBLES [facility] digoxin (LANOXIN) tablet 125 mcg 2019-11 15:45: 00 Yes 125ug 125 mcg, Oral, DAILY, First dose on Elsie 09/30/20 at 0945, Until Discontinu ed, Routine [facility] metoprolol succinate XL (TOPROL XL) tablet 25 mg 2019-11 15:28: 00 09-30 15:46 :00 No 25mg 25 mg, Oral, ONCE, 1 dose, Elsie 09/30/20 at 0930, Routine [facility] Polyethylen e Glycol 3350 (MIRALAX) powder 17 g 2019-11 14:15: 00 10-02 20:22 :36 No 17g 17 g, Oral, BID, First dose on Elsie 09/30/20 at 0815, Until Discontinu ed, Routine [facility] insulin glargine (LANTUS U-100) injection 16 Units 2019-11 03:00: 00 10-01 14:16 :00 No 16U 16 Units, Subcutaneo us, QHS, First dose on 09/29/20 at 2100, Until Discontinu ed, Routine [facility] apixaban (ELIQUIS) tablet 5 mg 2019-11 02:00: 00 Yes 5mg 5 mg, Oral, BID, First dose on [facility] 09/29/20 at 2000, Until Discontinu ed, Routine [facility] furosemide (LASIX) injection 80 mg 2019-11 02:00: 00 10-01 17:11 :54 No 80mg 80 mg, IV Push, Q12H, First dose (after last modificati on) on 09/29/20 at 2000, Until Discontinu ed, [facility] metoprolol succinate XL (TOPROL XL) tablet 50 mg 2019-11 02:00: 00 09-30 15:28 :45 No 50mg 50 mg, Oral, BID, First dose (after last modificati on) on 09/29/20 at 2000, Until Discontinu ed, Routine [facility] insulin lispro (human) (HumaLOG U-100) injection 4 Units 2019-11 23:00: 00 10-01 14:16 :00 No 4U 4 Units, Subcutaneo us, TID MEALS, First dose on 09/29/20 at 1700, Until Discontinu ed, Routine [facility] Sliding Scale Insulin - Lispro (HumaLOG) + Fsbg Testing 2019-11 22:30: 00 10-02 14:18 :31 No Subcutaneo us, Q4H, First dose on 09/29/20 at 1630, Until Discontinu ed, Routine [facility] metoprolol succinate XL (TOPROL XL) tablet 12.5 mg 2019-11 17:04: 00 09-29 19:00 :00 No 12.5mg 12.5 mg, Oral, ONCE, 1 dose, 09/29/20 at 1115, Routine [facility] furosemide (LASIX) injection 40 mg 2019-11 15:41: 00 09-29 17:11 :00 No 40mg 40 mg, Slow IV Push, ONCE, 1 dose, 09/29/20 at 0945, Routine [facility] losartan (COZAAR) tablet 12.5 mg 2019-11 15:00: 00 Yes 12.5mg 12.5 mg, Oral, DAILY, First dose on 09/29/20 at 0900, Until Discontinu ed, Routine [facility] Sliding Scale Insulin - Lispro (HumaLOG) + Fsbg Testing 2019-11 14:00: 00 09-29 22:24 :01 No Subcutaneo us, TID MEALS+HS, First dose (after last modificati on) on 09/29/20 at 0800, Until Discontinu ed, Routine [facility] metoprolol succinate XL (TOPROL XL) tablet 37.5 mg 2019-11 14:00: 00 09-29 17:04 :42 No 37.5mg 37.5 mg, Oral, BID, First dose (after last modificati on) on 09/29/20 at 0800, Until Discontinu ed, Rout[facility] heparin STD 25,000 units/250ml in NS 2019-11 13:33: 38 09-29 17:07 :11 No 1000U/h 1,000 Units/hr (10 mL/hr), IV Infusion, TITRATE, Parameters in Admin. Instr., Starting 09/29/20 [...] Rang e, Dosing and Testing: &nbs p;FOR [place], [facility], AND [facility] ONLY &nbs p; - aPTT < [...] ADJUST INITIAL BOLUS OR INITIAL INFUSION RATE.
[facility] KCL (KLOR-CON M20) tablet 20 mEq 2019-11 12:00: 00 09-29 11:35 :00 No 20meq 20 mEq, Oral, ONCE, 1 dose, 09/29/20 at 0600, Routine [facility] acetaminoph en (TYLENOL) tablet 325 mg 2019-11 00:30: 33 Yes 325mg 325 mg, Oral, Q6HPRN, Starting 09/28/20 at 1830, Until Discontinu ed, Routine, headache [facility] heparin 1,000 unit/mL injection 2019-11 18:32: 00 09-28 18:32 :00 No Slow IV Push, TITRATE - FOR PROCEDURE USE, 1 dose, Starting Thu09/28/20 at 1232, Until Thu09/28/20 at 1232, Routine [facility] nitroglycer in (TRIDIL) 2 mg in 10 mL D5W for Cardiac Cath 2019-11 18:32: 00 09-28 18:32 :00 No Intravenou s, TITRATE - FOR PROCEDURE USE, 1 dose, Starting Thu09/28/20 at 1232, Until Thu09/28/20 at 1232, Routine [facility] midazolam (VERSED) injection 2019-11 18:31: 00 09-28 18:31 :00 No IV Push, TITRATE - FOR PROCEDURE USE, 1 dose, Starting Thu09/28/20 at 1231, Until Thu09/28/20 at 1231, Routine [facility] FENTanyl PF (SUBLIMAZE (PF)) injection 2019-11 18:28: 20 09-28 18:28 :20 No Slow IV Push, TITRATE - FOR PROCEDURE USE, 1 dose, Starting Thu09/28/20 at 1228, Until Thu09/28/20 at 1228, Routine [facility] lidocaine 1% (PF) (XYLOCAINE) injection 2019-11 18:14: 00 09-28 18:14 :00 No Infiltrati on, TITRATE - FOR PROCEDURE USE, 1 dose, Starting Thu09/28/20 at 1214, Until Thu09/28/20 at 1214, Routine [facility] FENTanyl PF (SUBLIMAZE (PF)) injection 2019-11 18:00: 00 09-28 18:00 :00 No Slow IV Push, TITRATE - FOR PROCEDURE USE, 1 dose, Starting Thu09/28/20 at 1200, Until Thu09/28/20 at 1200, Routine [facility] midazolam (VERSED) injection 2019-11 18:00: 00 09-28 18:00 :00 No IV Push, TITRATE - FOR PROCEDURE USE, 1 dose, Starting Thu09/28/20 at 1200, Until Thu09/28/20 at 1200, Routine [facility] metoprolol succinate XL (TOPROL XL) tablet 25 mg 2019-11 15:15: 00 09-29 13:32 :40 No 25mg 25 mg, Oral, BID, First dose on Thu09/28/20 at 0915, Until Discontinu ed, Routine [facility] aspirin chewable tablet 81 mg 2019-11 15:00: 00 Yes 81mg 81 mg, Oral, DAILY, First dose on Thu09/28/20 at 0900, Until Discontinu ed, Routine [facility] pantoprazol e (PROTONIX) EC tablet 40 mg 2019-11 15:00: 00 Yes 40mg 40 mg, Oral, DAILY, First dose on Thu09/28/20 at 0900, Until Discontinu ed, Routine [facility] atorvastati n (LIPITOR) tablet 40 mg 2019-11 08:15: 00 Yes 40mg 40 mg, Oral, QHS, First dose on Thu09/28/20 at 0215, Until Discontinu ed, Routine [facility] nitroglycer in (NITROSTAT) sublingual tablet 0.4 mg 2019-11 08:02: 39 Yes .4mg 0.4 mg, Sublingual , Q5MIN PRN, Starting Thu09/28/20 at 0202, Until Discontinu ed, Routine, Chest pain [facility] furosemide (LASIX) injection 40 mg 2019-11 08:00: 00 09-29 15:41 :59 No 40mg 40 mg, IV Push, Q12H, First dose (after last reorder) on Thu09/28/20 at 0200, Until Discontinu ed, [facility] Sliding Scale Insulin - Lispro (HumaLOG) + Fsbg Testing 2019-11 06:00: 00 09-29 13:30 :59 No Subcutaneo us, Q6H ABX, First dose on Thu09/28/20 at 0000, Until Discontinu ed, Routine [facility] metoprolol tartrate (LOPRESSOR) tablet 25 mg 2019-11 05:00: 00 09-28 15:12 :41 No 25mg 25 mg, Oral, BID, First dose on Mariaelena 09/27/20 at 2300, Until Discontinu ed, Routine [facility] heparin STD 25,000 units/250ml in NS 2019-11 04:46: 23 09-29 13:33 :56 No 1000U/h 1,000 Units/hr (10 mL/hr), IV Infusion, TITRATE, Parameters in Admin. Instr., Starting Mariaelena [...] Rang e, Dosing and Testing: &nbs p;FOR [place], [facility], AND [facility] ONLY &nbs p; - aPTT < 35: & nbsp;Bolus 5000 units, increase rate 300 units/hr&n bsp; - aPTT 35-44:&nbs p; Jakob jesus 3000 units, increase rate 200 units/hr&n bsp; - aPTT 45-54:&nbs p; In crease rate 100 units/hr&n bsp; - aPTT 55-85:&nbs p;&nbs p;NO CHANGE&nbs p; - aPTT 86-95:&nbs p; De [...] ADJUST INITIAL BOLUS OR INITIAL INFUSION RATE.
[facility] aspirin tablet 325 mg 2019-11 04:15: 00 09-28 03:38 :00 No 325mg 325 mg, Oral, ONCE, 1 dose, Mariaelena 09/27/20 at 2215, Routine [facility] iohexol (OMNIPAQUE 350 BULK-100 mL) injection 100 mL 2019-11 21:45: 00 09-27 21:45 :00 No 100mL 100 mL, Intravenou s, ONCE, 1 dose, Mariaelena 09/27/20 at 1545, Routine [facility] furosemide (LASIX) injection 40 mg 2019-11 21:45: 00 09-27 21:04 :00 No 40mg 40 mg, IV Push, ONCE, 1 dose, Mariaelena 09/27/20 at 1545, [facility] heparin 25,000 Units/250 mL (Premixed Bag) in 0.45 % NS 2019-11 21:38: 12 09-28 04:46 :34 No 1000U/h 1,000 Units/hr (10 mL/hr), IV Infusion, TITRATE, Parameters in Admin. Instr., Starting Mariaelena 09/27/20 at 1538
CA UTION - If LMWH given in ER, AVOID bolus and start next dose/drip 12 hrs after ER dosage.&nb sp; M ust program rate using programmab le infusion pump.&nbsp ; Leticia ck with the ordering provider first prior to any administra tion should the patient be on existing/a dditional anticoagul ant therapy. Rang e, Dosing and Testing: &nbs p;FOR [place], [facility], AND [facility] ONLY &nbs p; - aPTT < 35: & nbsp;Bolus 5000 units, increase rate 300 units/hr&n bsp; - aPTT 35-44:&nbs p; Jakob jesus 3000 units, increase rate 200 units/hr&n bsp; - aPTT 45-54:&nbs p; In crease rate 100 units/hr&n bsp; - aPTT 55-85:&nbs p;&nbs p;NO CHANGE&nbs p; - aPTT 86-95:&nbs p; De [...] ADJUST INITIAL BOLUS OR INITIAL INFUSION RATE.
[facility] heparin 1000 unit/mL injection Soln 4,000 Units 2019-11 20:45: 00 09-27 20:45 :00 No 4000U 4,000 Units, IV Push, ONCE, 1 dose, Mariaelena 09/27/20 at 1445, Routine [facility] aspirin 81 mg capsule Take 1 capsule every day by oral route. aspirin 81 mg capsule Take 1 capsule every day by oral route. No 1capsul e(s) Q1D aspirin 81 mg capsule Take 1 capsule every day by oral route. [facility] BD Ultra-Fine Short Pen Needle 31 gauge x 5/16" USE DIRECTED FIVE TIMES DAILY BD Ultra-Fine Short Pen Needle 31 gauge x 5/16" USE DIRECTED FIVE TIMES DAILY No BD Ultra-Fine Short Pen Needle 31 gauge x 5/16" USE DIRECTED FIVE TIMES DAILY [facility] Jardiance 25 mg tablet Take 1 tablet every day by oral route in the morning for 30 days. Jardiance 25 mg tablet Take 1 tablet every day by oral route in the morning for 30 days. No 1 Q1D Jardiance 25 mg tablet Take 1 tablet every day by oral route in the morning for 30 days. [facility] spironolact one 25 mg tablet Take 1 tablet every day by oral route. spironolact one 25 mg tablet Take 1 tablet every day by oral route. No spironolac tone 25 mg tablet Take 1 tablet every day by oral route. [facility] BD Deb 2nd Gen Pen Needle 32 gauge x 5/32" USE DIRECTED 4 TIMES DAILY BD Deb 2nd Gen Pen Needle 32 gauge x 5/32" USE DIRECTED 4 TIMES DAILY No BD Deb 2nd Gen Pen Needle 32 gauge x 5/32" USE DIRECTED 4 TIMES DAILY [facility] BD Ultra-Fine Mini Pen Needle 31 gauge x 3/16" BD Ultra-Fine Mini Pen Needle 31 gauge x 3/16" No BD Ultra-Fine Mini Pen Needle 31 gauge x 3/16" [facility] metoprolol succinate ER 100 mg tablet,exte nded release 24 hr TAKE 1 TABLET BY MOUTH ONCE DAILY metoprolol succinate ER 100 mg tablet,exte nded release 24 hr TAKE 1 TABLET BY MOUTH ONCE DAILY No metoprolol succinate ER 100 mg tablet,ext ended release 24 hr TAKE 1 TABLET BY MOUTH ONCE DAILY [facility] ergocalcife rol (vitamin D2) 1,250 mcg (50,000 unit) capsule TAKE 1 CAPSULE BY MOUTH ONCE A WEEK ergocalcife rol (vitamin D2) 1,250 mcg (50,000 unit) capsule TAKE 1 CAPSULE BY MOUTH ONCE A WEEK No ergocalcif douglas (vitamin D2) 1,250 mcg (50,000 unit) capsule TAKE 1 CAPSULE BY MOUTH ONCE A WEEK [facility] FreeStyle Tobin 3 Sensor device USE DIRECTED - CHANGE EVERY 14 DAYS FreeStyle Tobin 3 Sensor device USE DIRECTED - CHANGE EVERY 14 DAYS No FreeStyle Tobin 3 Sensor device USE DIRECTED - CHANGE EVERY 14 DAYS [facility] ipratropium bromide 21 mcg (0.03 %) nasal spray ipratropium bromide 21 mcg (0.03 %) nasal spray No ipratropiu m bromide 21 mcg (0.03 %) nasal spray [facility] albuterol sulfate HFA 90 mcg/actuati on aerosol inhaler INHALE 2 PUFFS BY MOUTH EVERY 4 TO 6 HOURS NEEDED albuterol sulfate HFA 90 mcg/actuati on aerosol inhaler INHALE 2 PUFFS BY MOUTH EVERY 4 TO 6 HOURS NEEDED No albuterol sulfate HFA 90 mcg/actuat ion aerosol inhaler INHALE 2 PUFFS BY MOUTH EVERY 4 TO 6 HOURS NEEDED [facility] cefdinir 300 mg capsule TAKE 1 CAPSULE BY MOUTH TWICE DAILY FOR 10 DAYS cefdinir 300 mg capsule TAKE 1 CAPSULE BY MOUTH TWICE DAILY FOR 10 DAYS No cefdinir 300 mg capsule TAKE 1 CAPSULE BY MOUTH TWICE DAILY FOR 10 DAYS [facility] sulfamethox azole 800 mg-trimetho prim 160 mg tablet TAKE 1 TABLET BY MOUTH TWICE DAILY FOR 14 DAYS sulfamethox azole 800 mg-trimetho prim 160 mg tablet TAKE 1 TABLET BY MOUTH TWICE DAILY FOR 14 DAYS No sulfametho xazole 800 mg-trimeth oprim 160 mg tablet TAKE 1 TABLET BY MOUTH TWICE DAILY FOR 14 DAYS [facility] Fiasp FlexTouch U-100 Insulin 100 unit/mL (3 mL) subcutaneou s pen Give before meals for glucose >200 using Cf 1:20; TDD 50 Fiasp FlexTouch U-100 Insulin 100 unit/mL (3 mL) subcutaneou s pen Give before meals for glucose >200 using Cf 1:20; TDD 50 No Fiasp FlexTouch U-100 Insulin 100 unit/mL (3 mL) subcutaneo us pen Give before meals for glucose >200 using Cf 1:20; TDD 50 [facility] levofloxaci n 500 mg tablet TAKE 1 TABLET BY MOUTH ONCE DAILY levofloxaci n 500 mg tablet TAKE 1 TABLET BY MOUTH ONCE DAILY No levofloxac in 500 mg tablet TAKE 1 TABLET BY MOUTH ONCE DAILY [facility] Mounjaro 12.5 mg/0.5 mL subcutaneou s pen injector Inject 12.5 mg every week by subcutaneou s route for 30 days. Mounjaro 12.5 mg/0.5 mL subcutaneou s pen injector Inject 12.5 mg every week by subcutaneou s route for 30 days. No 12.5mg Q1W Mounjaro 12.5 mg/0.5 mL subcutaneo us pen injector Inject 12.5 mg every week by subcutaneo us route for 30 days. [facility] Mounjaro 15 mg/0.5 mL subcutaneou s pen injector Inject 15 mg every week by subcutaneou s route for 30 days. Mounjaro 15 mg/0.5 mL subcutaneou s pen injector Inject 15 mg every week by subcutaneou s route for 30 days. No 15mg Q1W Mounjaro 15 mg/0.5 mL subcutaneo us pen injector Inject 15 mg every week by subcutaneo us route for 30 days. [facility] omeprazole 40 mg capsule,del ayed release TAKE 1 CAPSULE BY MOUTH ONCE DAILY DO NOT START UNTIL ALL ANTIBIOTICS ARE FINISHED omeprazole 40 mg capsule,del ayed release TAKE 1 CAPSULE BY MOUTH ONCE DAILY DO NOT START UNTIL ALL ANTIBIOTICS ARE FINISHED No omeprazole 40 mg capsule,de layed release TAKE 1 CAPSULE BY MOUTH ONCE DAILY DO NOT START UNTIL ALL ANTIBIOTIC S ARE FINISHED [facility] Immunizations Ordered Immunization Name Filled Immunization Name Date Status Comments Source [id number]< sup>1</sup> 2021-02-13 00:00:00 Completed Radha Santana COVID-19, mRNA, LNP-S, PF, 100 mcg/0.5 mL dose (Moderna) - ML COVID-19, mRNA, LNP-S, PF, 100 mcg/0.5 mL dose (Moderna) - ML Unknown Completed [facility] Vital Signs Vital Name Observation Time Observation Value Comments S ource Systolic blood pressure 2021-06-11 14:21:00 131 mm[Hg] [facility] Diastolic blood pressure 2021-06-11 14:21:00 74 mm[Hg] [facility] Heart rate 2021-06-11 14:21:00 65 /min [facility] height 2021-06-11 14:21:00 193 [facility] weight 2021-06-11 14:21:00 [facility]109 [facility] BMI 2021-06-11 14:21:00 44.31 kg[facility]m2 [facility] Systolic blood pressure 2021-05-23 16:31:00 120 mm[Hg] [facility] Diastolic blood pressure 2021-05-23 16:31:00 71 mm[Hg] [facility] Heart rate 2021-05-23 16:31:00 76 /min [facility] Body height 2021-05-23 16:31:00 193 [facility] Body weight 2021-05-23 16:31:00 167[facility]377 [facility] BMI 2021-05-23 16:31:00 44.92 kg/m2 [facility] Systolic blood pressure 2021-06-04 18:30:00 132 mm[Hg] [facility] Diastolic blood pressure 2021-06-04 18:30:00 81 mm[Hg] [facility] Heart rate 2021-06-04 18:30:00 80 /min [facility] Body height 2021-06-04 18:30:00 193 [facility] Body weight 2021-06-04 18:30:00 167.377 [facility] BMI 2021-06-04 18:30:00 44.92 kg/m2 [facility] Weight 2024-04-18 00:00:00 290 [lb_av] [facility] BMI (Body Mass Index) 2024-04-18 00:00:00 35.3 [facility]m2 [facility] Height 2024-04-18 00:00:00 76 [in_i] [facility] BP Systolic 2023-10-20 00:00:00 143 mm[Hg] [facility] BMI (Body Mass Index) 2023-10-20 00:00:00 35.9 kg/m2 [facility] BP Diastolic 2023-10-20 00:00:00 85 mm[Hg] [facility] Body Weight 2023-10-20 00:00:00 295 [lb_av] [facility] Height 2023-10-20 00:00:00 76 [in_i] [facility] BP Diastolic 2023-04-20 00:00:00 92 mm[Hg] [facility] Height 2023-04-20 00:00:00 76 [in_i] [facility] BMI (Body Mass Index) 2023-04-20 00:00:00 36.6 kg/m2 [facility] BP Systolic 2023-04-20 00:00:00 154 mm[Hg] [facility] Body Weight 2023-04-20 00:00:00 300.6 [lb_av] [facility] Diastolic 2023-01-13 00:00:00 73 mm[Hg] [facility] Height 2023-01-13 00:00:00 76 [in_i] [facility] BMI (Body Mass Index) 2023-01-13 00:00:00 37.5 kg/m2 [facility] BP Systolic 2023-01-13 00:00:00 120 mm[Hg] [facility] Body Weight 2023-01-13 00:00:00 308 [lb_av] [facility] BP Diastolic 2022-07-25 00:00:00 82 mm[Hg] [facility] Height 2022-07-25 00:00:00 76 [in_i] [facility] BMI (Body Mass Index) 2022-07-25 00:00:00 37.7 kg/m2 [facility] BP Systolic 2022-07-25 00:00:00 134 mm[Hg] [facility] Body Weight 2022-07-25 00:00:00 310 [lb_av] [facility] Diastolic 2022-01-17 00:00:00 86 mm[Hg] [facility] Height 2022-01-17 00:00:00 76 [in_i] [facility] BMI (Body Mass Index) 2022-01-17 00:00:00 41.1 kg/m2 [facility] BP Systolic 2022-01-17 00:00:00 149 mm[Hg] [facility] Body Weight 2022-01-17 00:00:00 338 [lb_av] [facility] Systolic blood pressure 2021-12-17 17:27:00 139 mm[Hg] [facility] Diastolic blood pressure 2021-12-17 17:27:00 77 mm[Hg] [facility] Heart rate 2021-12-17 17:27:00 87 /min [facility] Body temperature 2021-12-17 17:27:00 36.89 [place] Body height 2021-12-17 17:27:00 193 [facility] Body weight 2021-12-17 17:27:00 153.407 [facility] BMI 2021-12-17 17:27:00 41.17 kg/m2 [facility] Systolic blood pressure 2021-08-08 14:15:00 133 mm[Hg] [facility] Diastolic blood pressure 2021-08-08 14:15:00 78 mm[Hg] [facility] Heart rate 2021-08-08 14:15:00 76 /min [facility] Body temperature 2021-08-08 14:15:00 36.72 [place] Body height 2021-08-08 14:15:00 193 [facility] Body weight 2021-08-08 14:15:00 158.305 [facility] BMI 2021-08-08 14:15:00 42.48 kg/m2 [facility] Systolic blood pressure 2021-07-16 14:21:00 118 mm[Hg] [facility] Diastolic blood pressure 2021-07-16 14:21:00 77 mm[Hg] [facility] Heart rate 2021-07-16 14:21:00 82 /min [facility] height 2021-07-16 14:21:00 193 [facility] Body weight 2021-07-16 14:21:00 163.295 [facility] BMI 2021-07-16 14:21:00 43.82 kg/m2 [facility] Systolic blood pressure 2021-07-16 14:21:00 118 mm[Hg] [facility] Diastolic blood pressure 2021-07-16 14:21:00 77 mm[Hg] [facility] Heart rate 2021-07-16 14:21:00 82 /min [facility] height 2021-07-16 14:21:00 193 [facility] Body weight 2021-07-16 14:21:00 163.295 [facility] BMI 2021-07-16 14:21:00 43.82 kg/m2 [facility] BP Diastolic 2021-06-18 00:00:00 64 mm[Hg] [facility] Height 2021-06-18 00:00:00 76 [in_i] [facility] BMI (Body Mass Index) 2021-06-18 00:00:00 44.1 kg/m2 [facility] BP Systolic 2021-06-18 00:00:00 106 mm[Hg] [facility] Body Weight 2021-06-18 00:00:00 362.2 [lb_av] [facility] Systolic blood pressure 2021-06-11 14:21:00 131 mm[Hg] [facility] Diastolic blood pressure 2021-06-11 14:21:00 74 mm[Hg] [facility] Heart rate 2021-06-11 14:21:00 65 /min [facility] height 2021-06-11 14:21:00 193 [facility] Body weight 2021-06-11 14:21:00 165.109 [facility] BMI 2021-06-11 14:21:00 44.31 kg/m2 [facility] Systolic blood pressure 2021-06-04 18:30:00 132 mm[Hg] [facility] Diastolic blood pressure 2021-06-04 18:30:00 81 mm[Hg] [facility] Heart rate 2021-06-04 18:30:00 80 /min [facility] height 2021-06-04 18:30:00 193 [facility] Body weight 2021-06-04 18:30:00 167.377 [facility] BMI 2021-06-04 18:30:00 44.92 kg/m2 [facility] Systolic blood pressure 2021-05-23 16:31:00 120 mm[Hg] [facility] Diastolic blood pressure 2021-05-23 16:31:00 71 mm[Hg] [facility] Heart rate 2021-05-23 16:31:00 76 /min [facility] height 2021-05-23 16:31:00 193 cm [facility] weight 2021-05-23 16:31:00 167.377 [facility] BMI 2021-05-23 16:31:00 44.92 kg/m2 [facility] Systolic blood pressure 2021-01-09 20:45:00 132 mm[Hg] [facility] Diastolic blood pressure 2021-01-09 20:45:00 82 mm[Hg] [facility] Heart rate 2021-01-09 20:45:00 78 /min [facility] Body temperature 2021-01-09 20:45:00 36.72 [place] [facility] Body height 2021-01-09 20:45:00 193 cm [facility] Body weight 2021-01-09 20:45:00 163.93 kg [facility] BMI 2021-01-09 20:45:00 43.99 kg/m2 [facility] Oxygen saturation in Arterial blood by Pulse oximetry 2021-01-09 20:45:00 97 /min [facility] Systolic blood pressure 2021-01-09 20:45:00 132 mm[Hg] [facility] Diastolic blood pressure 2021-01-09 20:45:00 82 mm[Hg] [facility] Heart rate 2021-01-09 20:45:00 78 /min [facility] Body temperature 2021-01-09 20:45:00 36.72 [place] [facility] Body height 2021-01-09 20:45:00 193 cm [facility] Body weight 2021-01-09 20:45:00 163.93 kg [facility] BMI 2021-01-09 20:45:00 43.99 kg/m2 [facility] Oxygen saturation in Arterial blood by Pulse oximetry 2021-01-09 20:45:00 97 /min [facility] Systolic blood pressure 2020-12-13 21:25:00 128 mm[Hg] [facility] Diastolic blood pressure 2020-12-13 21:25:00 82 mm[Hg] [facility] Heart rate 2020-12-13 21:25:00 95 /min [facility] Body temperature 2020-12-13 21:25:00 36.78 [facility] Body height 2020-12-13 21:25:00 193 cm [facility] Body weight 2020-12-13 21:25:00 165.518 kg [facility] BMI 2020-12-13 21:25:00 44.42 kg/m2 [facility] Oxygen saturation in Arterial blood by Pulse oximetry 2020-12-13 21:25:00 96 /min [facility] Systolic blood pressure 2020-10-10 21:52:00 117 mm[Hg] [facility] Diastolic blood pressure 2020-10-10 21:52:00 82 mm[Hg] [facility] Heart rate 2020-10-10 21:52:00 81 /min [facility] Body temperature 2020-10-10 21:52:00 36.39 [facility] Respiratory rate 2020-10-10 21:52:00 18 /min [facility] Body height 2020-10-10 21:52:00 193 cm [facility] Body weight 2020-10-10 21:52:00 159.802 kg [facility] BMI 2020-10-10 21:52:00 42.88 kg/m2 [facility] Oxygen saturation in Arterial blood by Pulse oximetry 2020-10-10 21:52:00 98 /min [facility] Systolic blood pressure 2020-10-03 21:56:00 105 mm[Hg] [facility] Diastolic blood pressure 2020-10-03 21:56:00 56 mm[Hg] [facility] Heart rate 2020-10-03 21:56:00 87 /min [facility] Body temperature 2020-10-03 21:56:00 37 [facility] Respiratory rate 2020-10-03 21:56:00 20 /min [facility] Oxygen saturation in Arterial blood by Pulse oximetry 2020-10-03 21:56:00 96 /min [facility] Body weight 2020-10-03 01:52:00 156.31 kg [facility] BMI 2020-10-03 01:52:00 41.95 kg/m2 [facility] Body height 2020-10-02 20:10:00 193 cm [facility] Heart Rate 2021-12-27 18:23:00 [facility] Systolic (mm Hg) 2021-12-27 18:23:00 [facility] Diastolic (mm Hg) 2021-12-27 18:23:00 [facility] Height 2021-12-27 18:23:00 193.04 cm [facility] Weight 2021-12-27 18:23:00 [facility] BMI Calculated 2021-12-27 18:23:00 [facility] Systolic (mm Hg) 2021-08-29 22:30:00 [facility] Diastolic (mm Hg) 2021-08-29 22:30:00 [facility] Height 2021-08-29 22:30:00 193.04 cm [facility] Weight 2021-08-29 22:30:00 [facility] BMI Calculated 2021-08-29 22:30:00 [facility] Heart Rate 2021-07-29 17:00:00 [facility] Respitory Rate 2021-07-29 17:00:00 [facility] Systolic (mm Hg) 2021-07-29 17:00:00 [facility] Diastolic (mm Hg) 2021-07-29 17:00:00 [facility] Heart Rate 2021-07-29 13:00:00 [facility] Respitory Rate 2021-07-29 13:00:00 [facility] Systolic (mm Hg) 2021-07-29 13:00:00 [facility] Diastolic (mm Hg) 2021-07-29 13:00:00 [facility] Temperature Oral (F) 2021-07-29 09:00:00 98.4 F [facility] Temperature Oral (F) 2021-07-29 05:00:00 97.4 F [facility] Heart Rate 2021-07-29 05:00:00 [facility] Respitory Rate 2021-07-29 05:00:00 [facility] Systolic (mm Hg) 2021-07-29 05:00:00 [facility] Diastolic (mm Hg) 2021-07-29 05:00:00 [facility] Temperature Oral (F) 2021-07-29 01:00:00 97.9 F [facility] Heart Rate 2021-07-29 01:00:00 [facility] Respitory Rate 2021-07-29 01:00:00 [facility] Systolic (mm Hg) 2021-07-29 01:00:00 [facility] Diastolic (mm Hg) 2021-07-29 01:00:00 [facility] Temperature Oral (F) 2021-07-28 20:55:00 97.9 F [facility] Heart Rate 2021-07-28 20:55:00 [facility] Respitory Rate 2021-07-28 20:55:00 [facility] Systolic (mm Hg) 2021-07-28 20:55:00 [facility] Diastolic (mm Hg) 2021-07-28 20:55:00 [facility] Height 2021-07-25 08:56:00 193.04 cm [facility] Height 2021-07-25 04:45:00 193.04 cm [facility] Height 2021-07-25 00:56:00 193.04 cm [facility] Weight 2021-07-23 14:12:00 [facility] BMI Calculated 2021-07-23 14:12:00 [facility] Systolic (mm Hg) 2021-06-05 19:30:00 [facility] Diastolic (mm Hg) 2021-06-05 19:30:00 [facility] Respitory Rate 2021-06-05 19:30:00 [facility] Systolic (mm Hg) 2021-06-05 19:00:00 [facility] Diastolic (mm Hg) 2021-06-05 19:00:00 [facility] Respitory Rate 2021-06-05 19:00:00 [facility] Systolic (mm Hg) 2021-06-05 18:30:00 [facility] Diastolic (mm Hg) 2021-06-05 18:30:00 [facility] Respitory Rate 2021-06-05 18:30:00 [facility] Heart Rate 2021-06-05 17:30:00 [facility] Heart Rate 2021-06-05 17:25:00 [facility] Heart Rate 2021-06-05 17:20:00 [facility] Height 2021-06-05 15:33:00 193.04 cm [facility] Weight 2021-06-05 15:33:00 [facility] BMI Calculated 2021-06-05 15:33:00 [facility] Systolic (mm Hg) 2021-05-23 15:14:00 [facility] Diastolic (mm Hg) 2021-05-23 15:14:00 [facility] Heart Rate 2021-05-23 15:14:00 [facility] Height 2021-05-23 15:14:00 182.88 cm [facility] Weight 2021-05-23 15:14:00 [facility] BMI Calculated 2021-05-23 15:14:00 [facility] Systolic (mm Hg) 2021-04-18 17:15:00 [facility] Diastolic (mm Hg) 2021-04-18 17:15:00 [facility] Systolic (mm Hg) 2021-04-18 17:00:00 [facility] Diastolic (mm Hg) 2021-04-18 17:00:00 [facility] Systolic (mm Hg) 2021-04-18 16:45:00 [facility] Diastolic (mm Hg) 2021-04-18 16:45:00 [facility] Respitory Rate 2021-04-18 16:30:00 [facility] Respitory Rate 2021-04-18 16:15:00 [facility] Respitory Rate 2021-04-18 16:00:00 [facility] Height 2021-04-18 12:47:00 152.4 cm [facility] Weight 2021-04-18 12:47:00 [facility] BMI Calculated 2021-04-18 12:47:00 [facility] Systolic (mm Hg) 2021-03-22 16:01:00 [facility] Diastolic (mm Hg) 2021-03-22 16:01:00 [facility] Heart Rate 2021-03-22 16:01:00 [facility] Height 2021-03-22 16:01:00 185.42 cm [facility] Weight 2021-03-22 16:01:00 [facility] BMI Calculated 2021-03-22 16:01:00 M yoditrial Max Procedures Procedure Date / Time Performed Performing Clinician Source ECG 12-LEAD 2024-03-08 15:28:52 Kj Lopez [facility] h ECG 12-LEAD 2023-03-02 16:21:26 JessicaKj [facility] h ECG 12-LEAD 2021-08-29 19:24:52 System, Prov ider Not In [facility] ECG 12-LEAD 2021-08-29 19:24:52 System, Prov ider Not In [facility] ECG 12-LEAD 2021-08-08 00:00:00 Moi Estrada [facility] XR CHEST 2 VIEWS 2021-08-07 14:03:54 Vishal On license of [facility] XR CHEST 2 VIEWS 2021-08-07 14:03:54 Vishal On license of [facility] XR CHEST 2 VIEWS 2021-07-23 17:27:31 Vishal On license of [facility] XR CHEST 2 VIEWS 2021-07-23 17:27:31 Vishal On license of [facility] BREATHING CAPACITY TEST 2021-07-23 15:25:[address] [facility] ECG 12-LEAD 2021-07-16 00:00:00 Moi Estrada [facility] US CAROTID DOPPLER BILATERAL 2021-06-26 19:01:34 Vishal On license of [facility] US CAROTID DOPPLER BILATERAL 2021-06-26 19:01:34 Vishal On license of [facility] CT CHEST WO CONTRAST 2021-06-26 18:26:52 Vishal On license of [facility] CT CHEST WO CONTRAST 2021-06-26 18:26:52 Vishal On license of [facility] US DUP-SCAN HEMO COMPL UNI 2021-06-21 14:56:[address] [facility] DUP-SCAN HEMO COMPL [facility] 2021-06-21 14:56:[address] [facility] ECG 12-LEAD 2021-06-11 00:00:00 Moi Estrada [facility] ECG 12-LEAD 2021-06-04 18:33:[address] [facility] MRI CARDIAC MORPHOLOGY AND FUNCTION W AND WO IV CONTRAST 2021-05-11 22:26:[address] [facility] MRI CARDIAC MORPHOLOGY AND FUNCTION W AND WO IV CONTRAST 2021-05-11 22:26:00 [facility] JUSTIF[facility] 2021-04-25 05:01:00 Doc emmanuelle Unassigned, [place] [facility] DME/SUPPLY JUSTIFICATION 2021-04-10 05:01:00 Doc emmanuelle Unassigned, [place] [facility] ASSIGNMENT OF BENEFITS 2020-10-10 21:36:15 Ifeoma jonas Unassigned, [place] [facility] POCT GLUCOSE (AUTOMATED) 2020-10-03 22:51:00 Itu Oleksandr Mejía [facility] POCT GLUCOSE (AUTOMATED) 2020-10-03 21:03:00 Itu Oleksandr Mejía [facility] POCT GLUCOSE (AUTOMATED) 2020-10-03 20:02:00 Itu Oleksandr Mejía [facility] POCT GLUCOSE (AUTOMATED) 2020-10-03 17:25:00 Itu Oleksandr Mejía [facility] POCT GLUCOSE (AUTOMATED) 2020-10-03 13:40:00 Itu Oleksandr Mejía [facility] MAGNESIUM 2020-10-03 11:08:00 Shira Lund [facility] BASIC METABOLIC PANEL (NA, K, CL, CO2, GLUCOSE, BUN, CREATININE, CA) 2020-10-03 11:08:00 Shira Lund [facility] N-TERMINAL PRO-BNP 2020-10-03 11:08:00 Marlin Francis [facility] POCT GLUCOSE (AUTOMATED) 2020-10-03 02:16:00 Itu Oleksandr Mejía [facility] POCT GLUCOSE (AUTOMATED) 2020-10-03 00:28:00 Itu Oleksandr Mejía [facility] TRANSESOPHAGEAL ECHO 2020-10-02 21:32:30 Emily Kendall [facility] POCT GLUCOSE (AUTOMATED) 2020-10-02 20:07:00 Itu Oleksandr Mejía [facility] POCT GLUCOSE (AUTOMATED) 2020-10-02 16:10:00 Itu Oleksandr Mejía [facility] POCT GLUCOSE (AUTOMATED) 2020-10-02 14:11:00 Itu Oleksandr Mejía [facility] MAGNESIUM 2020-10-02 11:34:00 Shira Lund [facility] BASIC METABOLIC PANEL (NA, K, CL, CO2, GLUCOSE, BUN, CREATININE, CA) 2020-10-02 11:34:00 Shira Lund [facility] POCT GLUCOSE (AUTOMATED) 2020-10-02 10:34:00 Itu Oleksandr Mejía [facility] POCT GLUCOSE (AUTOMATED) 2020-10-02 06:06:00 Itu Oleksandr Mejía [facility] Echocardiogram<sup>1</sup> 2020-10-02 06:00:00 [facility] POCT GLUCOSE (AUTOMATED) 2020-10-02 02:19:00 Itu Oleksandr Mejía [facility] POCT GLUCOSE (AUTOMATED) 2020-10-01 23:01:00 Itu Oleksandr Mejía [facility] NM MYOCARDIAL VIABILITY REST 2020-10-01 21:55:48 Oleksandr Santiago [facility] POCT GLUCOSE (AUTOMATED) 2020-10-01 16:26:00 Itu Oleksandr Mejía [facility] POCT GLUCOSE (AUTOMATED) 2020-10-01 13:39:00 Itu Oleksandr Mejía [facility] MAGNESIUM 2020-10-01 11:14:00 Shira Lund [facility] BASIC METABOLIC PANEL (NA, K, CL, CO2, GLUCOSE, BUN, CREATININE, CA) 2020-10-01 11:14:00 Shira Lund [facility] POCT GLUCOSE (AUTOMATED) 2020-10-01 10:38:00 Itu serenity-Oleksandr Guevara [facility] POCT GLUCOSE (AUTOMATED) 2020-10-01 05:48:00 Itu rrizaga-PaolaOleksandr [facility] POCT GLUCOSE (AUTOMATED) 2020-10-01 01:14:00 Itu rrizaga-AtlantaOleksandr [facility] POCT GLUCOSE (AUTOMATED) 2020-09-30 22:43:00 Itu serenity-Oleksandr Guevara [facility] POCT GLUCOSE (AUTOMATED) 2020-09-30 18:40:00 Itu serenity-Oleksandr Guevara [facility] POCT GLUCOSE (AUTOMATED) 2020-09-30 15:22:00 Itu Oleksandr Mejía [facility] ECHO ROUTINE W/DOPPLER COLOR 2020-09-30 15:07:37 Eva Limon [facility] MAGNESIUM 2020-09-30 10:50:00 Ashely [facility] BASIC METABOLIC PANEL (NA, K, CL, CO2, GLUCOSE, BUN, CREATININE, CA) 2020-09-30 10:50:00 Ashely [facility] ACTIVATED PARTIAL THRMPLAS RAY 2020-09-30 10:50:00 Huy Clay [facility] POCT GLUCOSE (AUTOMATED) 2020-09-30 10:46:00 Itu rrizaga-PaolaOleksandr [facility] POCT GLUCOSE (AUTOMATED) 2020-09-30 05:37:00 Itu serenity-Oleksandr Guevara [facility] POCT GLUCOSE (AUTOMATED) 2020-09-30 03:06:00 Itu serenity-Oleksandr Guevara [facility] POCT GLUCOSE (AUTOMATED) 2020-09-30 00:32:00 Itu rrizaga-PaolaOleksandr [facility] POCT GLUCOSE (AUTOMATED) 2020-09-29 21:52:00 Itu Oleksandr Mejía [facility] POCT GLUCOSE (AUTOMATED) 2020-09-29 18:30:00 Itu Oleksandr Mejía [facility] POCT GLUCOSE (AUTOMATED) 2020-09-29 14:48:00 Itu Oleksandr Mejía [facility] POCT GLUCOSE (AUTOMATED) 2020-09-29 11:31:00 Itu Oleksandr Mejía [facility] POCT GLUCOSE (AUTOMATED) 2020-09-29 07:37:00 Itu Oleksandr Mejía [facility] MAGNESIUM 2020-09-29 07:30:00 Shira Lund [facility] TROPONIN I 2020-09-29 07:30:00 Eva [facility]on [facility] BASIC METABOLIC PANEL (NA, K, CL, CO2, GLUCOSE, BUN, CREATININE, CA) 2020-09-29 07:30:00 Shira Lund [facility] GLYCOSYLATED HEMOGLOBIN (A1C) 2020-09-29 07:30:00 Lucille Raymundo [facility] ACTIVATED PARTIAL THRMPLAS RAY 2020-09-29 07:30:00 [facility] POCT GLUCOSE (AUTOMATED) 2020-09-29 04:36:00 Itu Oleksandr Mejía [facility] POCT GLUCOSE (AUTOMATED) 2020-09-29 01:31:00 Itu Oleksandr Mejía [facility] ACTIVATED PARTIAL THRMPLAS RAY 2020-09-28 22:33:00 Eva Limon [facility] HB ECG ROUTINE & RHYTHM STRIP 2020-09-28 20:09:53 Emily Kendall [facility] POCT GLUCOSE (AUTOMATED) 2020-09-28 12:15:00 Itu Oleksandr Mejía [facility] TROPONIN I 2020-09-28 09:42:00 [facility] ACTIVATED PARTIAL THRMPLAS RAY 2020-09-28 09:42:00 [facility] POCT GLUCOSE (AUTOMATED) 2020-09-28 06:29:00 Oleksandr Harris [facility] Cardiac catheterization, left heart<sup>2</sup> 2020-09-28 06:00:00 [facility] Max EKG-12 LEAD 2020-09-28 04:44:41 Oleksandr Winkler [facility] TROPONIN I 2020-09-28 03:26:00 [facility] LIPID PANEL (80312)(TOTAL CHOLESTEROL, TRIGLYCERIDES, HDL) 2020-09-28 03:26:00 [facility] ACTIVATED PARTIAL THRMPLAS RAY 2020-09-28 03:26:[address] [facility] [address] CHEST PULMONARY ANGIOGRAM 2020-09-27 21:31:11 Elisabet Deshpande [facility] LACTATE DEHYDROGENASE 2020-09-27 21:05:00 Mara Deshpande [facility] LIPASE 2020-09-27 19:09:00 Elisabet Deshpande [facility] TROPONIN I 2020-09-27 19:09:00 Elisabet Deshpande [facility] HEPATIC FUNCTION PANEL ([id number]) (ALB,T.PRO,BILI T,BU/BC,ALT,AST,ALK PHOS) 2020-09-27 19:09:00 Elisabet Deshpande [facility] BASIC METABOLIC PANEL (NA, K, CL, CO2, GLUCOSE, BUN, CREATININE, CA) 2020-09-27 19:09:00 Elisabet Deshpande [facility] CBC WITH DIFF 2020-09-27 19:09:00 Elisabet Deshpande [facility] PROTHROMBIN TIME / INR 2020-09-27 19:09:00 Yesenia Deshpande ala [facility] D-DIMER 2020-09-27 19:09:00 Elisabet Deshpande [facility] ACTIVATED PARTIAL THRMPLAS RAY 2020-09-27 19:09:00 Elisabet Deshpande [facility] N-TERMINAL PRO-BNP 2020-09-27 19:09:00 Elisabet Deshpande [facility] COVID-19 (ID NOW RAPID TESTING) 2020-09-27 19:09:00 Elisabet Deshpande [facility] LAB ONLY COVID INTERPRETATION 2020-09-27 19:09:00 Elisabet Deshpande [facility] HB ECG ROUTINE & RHYTHM STRIP 2020-09-27 18:52:44 Elisabet Deshpande [facility] XR CHEST 1 VW 2020-09-27 18:52:03 [facility] PR[facility] 2020-09-27 18:03:30 Doctor Unassigned, [place] [facility] CARDIAC CATHETERIZATION 2019-11-16 00:00:00 [facility] RIGHT SHOULDER SURGERY [facility] RIGHT FOOT SURGERY [facility] APPENDECTOMY [facility] Encounters Start Date/Time End Date/Time Encounter Type Admission Type Attending [facility] Care Facility Care Department Encounter ID Source 2023-03-27 11:45:47 Outpatient [facility] [id number] [facility] 2023-01-05 12:32:47 Outpatient [facility] [id number] [facility] 2022-12-29 18:46:44 Outpatient [facility] [id number] [facility] 2022-08-27 18:04:34 Outpatient [facility] [id number] [facility] 2022-05-20 18:18:22 Outpatient KJ LOPEZ [facility] CAR [id number] [facility] 2022-02-14 14:40:31 Outpatient [facility] [id number] [facility] 2022-02-12 13:10:48 Outpatient BAYTN B[facility] [id number] [facility] 2021-12-04 08:31:55 Outpatient KJ LOPEZ [facility] CAR [id number] 2021-10-23 01:04:21 Outpatient MOI ESTRADA [facility] [id number] [facility] 2021-07-29 09:32:19 Outpatient MOI ESTRADA [facility] [id number] [facility] 2021-07-19 09:55:12 Outpatient MOI ESTRADA [facility] [id number] [facility] 2021-06-10 10:07:33 Outpatient MOI ESTRADA [facility] [id number] [facility] 2021-05-23 10:39:56 Outpatient MOI ESTRADA [facility] [id number] [facility] 2021-05-21 08:47:00 Outpatient MK PORTER [facility] [id number] [facility] 2021-03-26 01:03:33 Outpatient KJ LOPEZ [facility] [id number] [facility] 2024-10-06 00:00:00 2024-10-06 14:18:56 Refill Kj Lopez [facility] [place] [address] [facility] [id number] [facility] 2024-04-18 00:00:00 2024-04-18 00:00:00 Garth Rios MD: [id number] [facility] [place] [facility], [address], [place] [address] , Ph. [facility] - [facility] - [place] - VM_HOU_Shad [facility] [id number] [facility] 2024-03-08 09:49:00 2024-03-08 23:59:00 Outpatient KJ LOPEZ [facility] CAR [id number] 2024-03-08 09:45:00 2024-03-08 09:45:00 External Contact KJ LOPEZ EXT [facility] LOCATION ..[id number] [facility] 2024-02-25 00:00:00 2024-02-25 00:00:00 Outpatient Getel_T_HO U_MD VFP [facility] [id number] [facility] 2023-10-21 00:00:00 2023-10-21 00:00:00 Outpatient Daniel_T_HO U_MD VFP VF [id number] [facility] 2023-10-20 00:00:00 2023-10-20 00:00:00 Outpatient Daniel_T_HO U_MD VFP VFP [id number] [facility] 2023-10-20 00:00:00 2023-10-20 00:00:00 Garth Rios MD: [id number], [address], [place] [address] , Ph. VFP [place] - [facility] - [place] - VM_HOU_Shad ow [place] [id number] [facility] 2023-10-17 00:00:00 2023-10-17 00:00:00 Outpatient Daniel_T_HO U_MD VFP VFP [id number] [facility] 2023-09-01 09:31:00 2023-09-01 23:59:00 Outpatient KJ LOPEZ [facility] CAR [id number] 2023-09-01 10:45:00 2023-09-01 10:45:00 External Contact KJ LOPEZ EXT [facility] LOCATION [id number] [facility] 2023-04-20 00:00:00 2023-04-20 00:00:00 Outpatient Daniel_T VFP VFP [id number] [facility] 2023-04-20 00:00:00 2023-04-20 00:00:00 Outpatient Daniel_T VFP VFP [id number] [facility] 2023-04-20 00:00:00 2023-04-20 00:00:00 Garth Rios MD: [id number] [address], [address], [place] [address] , Ph. VFP [facility] - [place] - VM_HOU_Shad [place] [id number] [facility] 2023-04-17 00:00:00 2023-04-17 00:00:00 Outpatient Daniel_T VFP VFP [id number] [facility] e 2023-03-02 11:03:00 2023-03-02 23:59:00 Outpatient KJ LOPEZ [facility] CAR [id number] 2023-03-02 10:30:00 2023-03-02 10:30:00 External Contact KJ LOPEZ EXT [facility] LOCATION [id number] [facility] 2023-01-13 00:00:00 2023-01-13 00:00:00 Outpatient Daniel_T VFP VFP [id number] [facility] e 2023-01-13 00:00:00 2023-01-13 00:00:00 Outpatient Daniel_T VFP VFP [id number] [facility] 2023-01-13 00:00:00 2023-01-13 00:00:00 Garth Rios MD: [id number] [facility], [address], [place] [address] , Ph. [facility] - [facility] [place] - _HOU_Shagudelia [facility] [id number] [facility] e 2022-09-10 09:39:00 2022-09-10 23:59:00 Outpatient JESSICACELSOIT [id number] [facility] 2022-08-26 10:09:00 2022-08-26 23:59:00 Outpatient JESSICAKJ BOCANEGRA [facility] CAR [id number] 2022-08-26 10:15:00 2022-08-26 10:15:00 Office Visit KJ LOPEZ EXT [facility] LOCATION [id number] [facility] 2022-07-28 00:00:00 2022-07-28 00:00:00 Outpatient Daniel_T VFP VFP [id number] [facility] 2022-07-25 00:00:00 2022-07-25 00:00:00 Outpatient Daniel_T VFP VFP [id number] [facility] 2022-07-25 00:00:00 2022-07-25 00:00:00 Garth Rios MD: [id number] [address], [address] [address] , Ph. VFP [place] [facility] [id number] [facility] 2022-07-24 00:00:00 2022-07-24 00:00:00 Outpatient Daniel_T VFP VFP [id number] [facility] 2022-02-24 00:00:00 2022-02-24 00:00:00 Outpatient Daniel_T VFP VFP [id number] [facility] 2022-01-30 05:03:00 2022-01-30 05:03:00 Outpatient Daniel_T VFP VFP [id number] [facility] 2022-01-17 00:00:00 2022-01-17 00:00:00 Garth Rios MD: [id number], [address] [address] , Ph. Daniel_T VFP [place] - [facility] - [facility] [id number] [facility] 2021-12-27 15:53:00 2021-12-28 05:59:00 Outpatient Ryan jonas [facility] [place] [id number] [place] 2021-12-27 09:53:00 2021-12-27 23:59:00 Outpatient KJ LOPEZ [facility] CAR [address] [facility] 2021-12-25 07:43:00 2021-12-25 07:43:00 Outpatient Daniel_T VFP VFP [id number] [facility] 2021-12-23 19:05:00 2021-12-24 05:59:00 Outpt Diag Services nullFlavo r [facility] Outpatient Imaging [facility] [place] [id number] [place] 2021-12-17 11:00:00 2021-12-17 13:01:59 Office Visit Moi Estrada [facility] 4 1.2.840.114 350.1.13.58 9.2.7.2.[id number] [facility] 2021-09-10 00:00:00 2021-09-10 00:00:00 EXT [facility] OP EXT MSRDP LOCATION 1.2.840.114 350.1.13.58 9.2.7.2.[id number] [facility] 2021-09-10 00:00:00 2021-09-10 00:00:00 EXT [facility] OP EXT MSRDP LOCATION 1.2.840.114 350.1.13.58 9.2.7.2.[id number] [facility] 2021-08-29 18:52:00 2021-08-30 04:59:00 Outpatient nullFlavo r [facility] [place] [id number] [place] 2021-08-29 13:52:00 2021-08-29 23:59:00 Outpatient KJ LOPEZ [facility] CAR [address] [facility] 2021-08-29 13:57:55 2021-08-29 14:12:55 Office Visit Kj Lopez EXT MSRDP LOCATION 1.2.840.114 350.1.13.58 9.2.7.2.[id number] [facility] 2021-08-29 13:57:55 2021-08-29 14:12:55 Office Visit KJ LOPEZ EXT MSRDP LOCATION 1.2.840.114 350.1.13.58 9.2.7.2.[id number] [facility] 2021-08-08 08:55:09 2021-08-08 10:19:56 Office Visit Moi Estrada [facility] 4 1.2840.114 350.1.13.58 9.2.7.2.[id number] [facility] 2021-08-07 13:55:00 2021-08-08 04:59:00 Outpt Diag Services nullFlavo r [facility] Outpatient Imaging [facility] [id number] [place] 2021-08-07 00:00:00 2021-08-07 00:00:00 EXT [facility] OP Moi Estrada EXT MSRDP LOCATION 1.2.840.114 350.1.13.58 9.2.7.2.[id number] [facility] 2021-08-07 00:00:00 2021-08-07 00:00:00 Telephone Paulette Harris Jacqueline [facility] 4 1.2840.114 350.1.13.58 9.2.7.2.[id number] [facility] 2021-08-07 00:00:00 2021-08-07 00:00:00 EXT [facility] OP VishalDanaan EXT MSRDP LOCATION 1.2.840.114 350.1.13.58 9.2.7.2.[id number] [facility] 2021-07-24 10:12:00 2021-07-29 21:27:00 Inpatient nullFlavo r [facility] [id number] [place] 2021-07-24 05:12:00 2021-07-29 16:27:00 Inpatient AIMEE MCGOWAN [facility] PUL [address] [facility] 2021-07-29 00:00:00 2021-07-29 00:00:00 Telephone Fany Barrow Deanna [facility] 4 1.2840.114 350.1.13.58 9.2.7.2.[id number] [facility] 2021-07-29 00:00:00 2021-07-29 00:00:00 Telephone Fany Barrowblanc, Fany UTP [facility] 4 1.2.840.114 350.1.13.58 9.2.7.2.[id number] [facility] 2021-07-29 00:00:00 2021-07-29 00:00:00 Orders Only Danial, Fany Blancoblanc, Fany UTP [facility] 4 1.2.840.114 350.1.13.58 9.2.7.2.[id number] [facility] 2021-07-29 00:00:00 2021-07-29 00:00:00 Telephone Fany Barrowblanc, Fany UTP [facility] 4 1.2.840.114 350.1.13.58 9.2.7.2.[id number] [facility] 2021-07-29 00:00:00 2021-07-29 00:00:00 Telephone Fany Barrowblanc, Fany UTP [facility] 4 1.2.840.114 350.1.13.58 9.2.7.2.[id number] [facility] 2021-07-29 00:00:00 2021-07-29 00:00:00 Orders Only Fany Barrowblanc, Fany UTP [facility] 4 1.2.840.114 350.1.13.58 9.2.7.2.[id number] [facility] 2021-07-24 07:13:11 2021-07-24 12:13:11 EXT [facility] OP Moi Estrada EXT MSRDP LOCATION 1.2.840.114 350.1.13.58 9.2.7.2.[id number] [facility] 2021-07-24 07:13:11 2021-07-24 12:13:11 EXT [facility] OP Moi Estrada EXT MSRDP LOCATION 1.2.840.114 350.1.13.58 9.2.7.2.[id number] [facility] 2021-07-23 17:10:00 2021-07-24 04:59:00 Outpt Diag Services nullFlavo r [facility] Outpatient Imaging [facility] [id number] [place] 2021-07-23 00:00:00 2021-07-23 00:00:00 EXT [facility] OP Moi Estrada EXT MSRDP LOCATION 1.2.840.114 350.1.13.58 9.2.7.2.[id number] [facility] 2021-07-23 00:00:00 2021-07-23 00:00:00 EXT [facility] OP Moi Estrada EXT MSRDP LOCATION 1.2.840.114 350.1.13.58 9.2.7.2.[id number] [facility] 2021-07-17 00:00:00 2021-07-17 00:00:00 EXT [facility] OP Moi Estrada EXT MSRDP LOCATION 1.2.840.114 350.1.13.58 9.2.7.2.[id number] [facility] 2021-07-17 00:00:00 2021-07-17 00:00:00 EXT [facility] OP Moi Estrada EXT MSRDP LOCATION 1.2.840.114 350.1.13.58 9.2.7.2.[id number] [facility] 2021-07-16 09:09:17 2021-07-16 10:52:16 Office Visit Vishal Moi [facility] 4 1.2.840.114 350.1.13.58 9.2.7.2.[id number] [facility] 2021-07-16 09:09:17 2021-07-16 10:52:16 Office Visit Moi Estrada [facility] 4 1.2.840.114 350.1.13.58 9.2.7.2.[id number] [facility] 2021-07-16 00:00:00 2021-07-16 00:00:00 Telephone Danial FanyFany Simons UTP [facility] 4 1.2.840.114 350.1.13.58 9.2.7.2.[id number] [facility] 2021-07-16 00:00:00 2021-07-16 00:00:00 Telephone BarrowFany Deanna UTP [facility] 4 1.2.840.114 350.1.13.58 9.2.7.2.[id number] [facility] 2021-06-26 18:08:00 2021-06-27 04:59:00 Outpt Diag Services nullFlavo r [facility] Outpatient [facility] [id number] [place] 2021-06-26 00:00:00 2021-06-26 00:00:00 EXT [facility] OP Moi Estrada EXT MSRDP LOCATION 1.2.840.114 350.1.13.58 9.2.7.2.[id number] [facility] 2021-06-26 00:00:00 2021-06-26 00:00:00 EXT [facility] OP Moi Estrada EXT MSRDP LOCATION 1.2.840.114 350.1.13.58 9.2.7.2.[id number] [facility] 2021-06-21 14:22:00 2021-06-22 04:59:00 Outpatient nullFlavo r [facility] [id number] Halishyla pearl Max 2021-06-21 09:22:00 2021-06-21 23:59:00 Outpatient MOI ESTRADA [facility] [id number] [facility] 2021-06-21 05:45:00 2021-06-21 05:45:00 Outpatient Gabriel_Jamar VFP [facility] [id number] [facility] 2021-06-19 00:00:00 2021-06-19 00:00:00 EXT [facility] OP Moi Estrada EXT MSRDP LOCATION 1.2840.114 350.1.13.58 9.2.7.2.[id number] [facility] 2021-06-19 00:00:00 2021-06-19 00:00:00 Telephone Fany Barrow Deanna [facility] 4 1..114 350.1.13.58 9.2.7.2.[id number] [facility] 2021-06-19 00:00:00 2021-06-19 00:00:00 EXT [facility] OP Moi Estrada EXT MSRDP LOCATION 1.2840.114 350.1.13.58 9.2.7.2.[id number] [facility] 2021-06-18 00:00:00 2021-06-18 00:00:00 Garth Rios MD: [id number] [facility], [address], [place] [address] , Ph. Gabriel_Jamar [facility] - VM_HOU_Shad [facility] [id number] [facility] 2021-06-14 00:00:00 2021-06-14 00:00:00 Telephone Fany Barrow Deanna [facility] 4 1..114 350.1.13.58 9.2.7.2.[id number] [facility] 2021-06-14 00:00:00 2021-06-14 00:00:00 Telephone Fany Barrow Deanna [facility] 4 1..114 350.1.13.58 9.2.7.2.[id number] [facility] 2021-06-11 09:03:20 2021-06-11 10:29:18 Office Visit Moi Estrada [facility] 4 1.840.114 350.1.13.58 9.2.7.2.[id number] [facility] 2021-06-05 15:19:00 2021-06-05 20:30:00 Bedded Outpatient nullFlavo r [facility] [place] [id number] [place] [facility] 2021-06-05 10:19:00 2021-06-05 15:30:00 Outpatient KJ LOPEZ [facility] CAR [address] [facility] 2021-06-04 13:24:03 2021-06-04 14:16:53 Office Visit Mk Porter [facility] 1.84114 350.1.13.58 9.2.7.2.[id number] [facility] 2021-05-23 14:59:00 2021-05-24 04:59:00 Outpatient nullFlavo r [facility] [id number] 2021-05-23 09:59:00 2021-05-23 23:59:00 Outpatient KJ LOPEZ [facility] CAR [address] [facility] 2021-05-23 11:22:49 2021-05-23 12:23:40 Office Visit Moi Estrada [facility] 4 1.84.114 350.1.13.58 9.2.7.2.[id number] [facility] 2021-05-21 00:00:00 2021-05-21 00:00:00 Telephone Mk Porter [facility] 1.84.114 350.1.13.58 9.2.7.2.[id number] [facility] 2021-05-11 21:02:00 2021-05-12 04:59:00 Outpatient nullFlavo r [facility] [id number] [facility] 2021-05-11 16:02:00 2021-05-11 23:59:00 Outpatient KJ LOPEZ [facility] CAR [address] [facility] 2021-05-09 00:00:00 2021-05-09 00:00:00 EXT [facility] OP Kj Lopez EXT MSRDP LOCATION 1.2.840.114 350.1.13.58 9.2.7.2.[id number] [facility] 2021-05-09 00:00:00 2021-05-09 00:00:00 EXT MH OP Kj Lopez EXT MSRDP LOCATION 1.2.840.114 350.1.13.58 9.2.7.2.[id number] [facility] 2021-04-25 00:00:00 2021-04-25 00:00:00 Orders Only Doctor Unassigned, [place] [facility] 1.2.840.114 350.1.13.10 4.2.7.2.686 [id number] [facility] 2021-04-25 00:00:00 2021-04-25 00:00:00 Orders Only Doctor Unassigned, [place] [facility] 1.2.840.114 350.1.13.10 4.2.7.2.686 [id number] 2021-04-18 12:29:00 2021-04-18 17:55:00 Bedded Outpatient [facility] [id number] [place] 2021-04-18 07:29:00 2021-04-18 12:55:00 Outpatient KJ LOPEZ [facility] CAR 7502 [facility] 2021-04-10 00:00:00 2021-04-10 00:00:00 Orders Only Doctor Unassigned, [place] [facility] 1.2.840.114 350.1.13.10 4.2.7.2.686 [id number] [facility] 2021-04-10 00:00:00 2021-04-10 00:00:00 Orders Only Doctor Unassigned, [place] [facility] 1.2.840.114 350.1.13.10 4.2.7.2.686 [id number] 2021-03-22 15:30:00 2021-03-23 04:59:00 Outpatient Ryan jose luis [facility] [place] [id number] [place] 2021-03-22 10:30:00 2021-03-22 23:59:00 Outpatient JESSICA KJ [facility] CAR [address] [facility] 2021-03-13 14:00:00 2021-03-13 14:00:00 Outpatient JUAREZ BAI [facility] [id number] [facility] 2021-03-11 10:00:00 2021-03-11 10:00:00 Outpatient RAEANN JEFFERS [facility] [id number] [facility] 2021-01-28 00:00:00 2021-01-28 00:00:00 Telephone Murray Cristianobiju [facility] 1.2.840.114 350.1.13.10 4.2.7.2.686 [id number] [facility] 2021-01-28 00:00:00 2021-01-28 00:00:00 Telephone Murray Juarez [facility] 1.2.840.114 350.1.13.10 4.2.7.2.686 [id number] 2021-01-25 15:00:00 2021-01-25 15:00:00 Outpatient JUAREZ BAI [facility] [id number] [facility] 2021-01-23 00:00:00 2021-01-23 00:00:00 Patient Outreach Huy Judge [facility] 1.2.840.114 350.1.13.10 4.2.7.2.686 [id number] [facility] 2021-01-23 00:00:00 2021-01-23 00:00:00 Patient Outreach AlfieHuy [facility] 1.2840.114 350.1.13.10 4.2.7.2.686 [id number] 2021-01-09 16:00:00 2021-01-09 16:00:00 Outpatient Jose Luis GAO [facility] [id number] [facility] 2021-01-09 14:27:31 2021-01-09 14:57:31 Office Visit Murray [facility] Office Building 1.2840.114 350.1.13.10 4.2.7.2.686 [id number] [facility] 2021-01-09 14:27:31 2021-01-09 14:57:31 Office Visit Musaelaine [facility] 1.2840.114 350.1.13.10 4.2.7.2.686 [id number] 2020-12-21 15:00:00 2020-12-21 15:00:00 Outpatient Jose Luis VILLALOBOSLATHAErnesto [facility] [id number] [facility] 2020-12-21 13:50:24 2020-12-21 14:05:24 Rebeamer Visit Draw, [facility] Lab Murray [facility] 1.2840.114 350.1.13.10 4.2.7.2.686 [id number] [facility] 2020-12-13 16:20:50 2020-12-13 16:35:50 Rebeamer Visit Draw, Clc-Bls Lab Blaise Crouch [facility] Office Building 1.2840.114 350.1.13.10 4.2.7.2.686 [id number] [facility] 2020-12-13 15:03:01 2020-12-13 16:19:17 Office Visit Crouch Blaiseesmer Guillen [facility] 1.2.840.114 350.1.13.10 4.2.7.2.686 [id number] [facility] 2020-12-13 15:15:00 2020-12-13 15:15:00 Outpatient R BLAISE CROUCH [facility] [id number] [facility] 2020-11-23 00:00:00 2020-11-23 00:00:00 Refill Murray [facility] 1.2.840.114 350.1.13.10 4.2.7.2.686 [id number] [facility] 2020-10-18 00:00:00 2020-10-18 00:00:00 Patient Outreach Cristina Stephens Bonilla Jose 1.2.840.114 350.1.13.10 4.2.7.2.686 [id number] [facility] 2020-10-10 16:44:39 2020-10-10 16:59:39 Rebeamer Visit Draw, Clc-Bls Lab Musalathaernesto [facility] 1.2.840.114 350.1.13.10 4.2.7.2.686 [id number] [facility] 2020-10-10 15:37:28 2020-10-10 16:46:12 Office Visit Murray biju [facility] Office Building 1.2.840.114 350.1.13.10 4.2.7.2.686 [id number] [facility] 2020-10-10 16:00:00 2020-10-10 16:00:00 Outpatient R JUAREZ GAO [facility] [id number] [facility] 2020-10-10 00:00:00 2020-10-10 00:00:00 Orders Only Doctor Unassigned, [place] [facility] 1.2.840.114 350.1.13.10 4.2.7.2.686 [id number] [facility] 2020-10-08 03:15:00 2020-10-08 03:15:00 Outpatient Gabriel_Jamar VFP VF [id number] [facility] 2020-10-04 00:00:00 2020-10-04 00:00:00 Transition of Care Petrona Padilla 1.2.840.114 350.1.13.10 4.2.7.2.686 [id number] [facility] 2020-10-04 00:00:00 2020-10-04 00:00:00 Transition of Care Maya Jessica 1.2.840.114 350.1.13.10 4.2.7.2.686 [id number] [facility] 2020-09-27 12:25:00 2020-10-03 20:29:00 Hospital Encounter Elisabet Deshpande Jose C [facility] 1.2.840.114 350.1.13.10 4.2.7.2.686 [id number] [facility] 2020-09-27 12:06:00 2020-09-27 12:06:00 Emergency X [facility] ERT [id number] [facility] Results Test Description Test Time Test Comments Results Result Co mments Source [facility] Practice[facility] 12 [id number] 00:52:54SEE [employer] Hemoglobin A1c measurement device [id number] 09:30:58* Test Item Value Reference Range Interpretation Comme nts Hemoglobin A1c/Hemoglobin.to rocky in Blood (test code = 4548-4) 6.5 % 4.0-6.4 [facility] PracticeGlucose [Mass/volume] in Capillary [id number] 09:26:40* Test Item Value Reference Range Interpretation Comme nts Blood Glucose: mg/dl (test c ode = Blood Glucose: mg/dl) 131 [facility] [id number] 10:27:06* Test Item Value Reference Range Interpretation Comme nts Hemoglobin A1c/Hemoglobin.to rocky in Blood (test code = 4548-4) 6.9 % 4.0-6.4 [facility] PracticeGlucose [Mass/volume] in Capillary [id number] 10:21:18* Test Item Value Reference Range Interpretation Comme nts Blood Glucose: mg/dl (test c ode = Blood Glucose: mg/dl) 153 [facility] A1c measurement device [id number] 13:53:22* Test Item Value Reference Range Interpretation Comme nts Hemoglobin A1c/Hemoglobin.to rocky in Blood (test code = 4548-4) 7.0 % 5.7-6.4 [facility] PracticeGlucose [Mass/volume] in Capillary [id number] 13:49:10* Test Item Value Reference Range Interpretation Comme nts Blood Glucose: mg/dl (test c ode = Blood Glucose: mg/dl) 149 [facility] Center[facility] A1c measurement device [id number] 10:40:31* Test Item Value Reference Range Interpretation Comme nts Hemoglobin A1c/Hemoglobin.to rocky in Blood (test code = 4548-4) 6.7 % 5.7-6.4 [facility] PracticeGlucose [Mass/volume] in Capillary [id number] 10:37:30* Test Item Value Reference Range Interpretation Comme nts Blood Glucose: mg/dl (test c ode = Blood Glucose: mg/dl) 149 [facility] Center[facility] A1c measurement device knhgz0045-48-86 08:51:25* Test Item Value Reference Range Interpretation Comme nts Hemoglobin A1C Fingerstick: (test code = Hemoglobin A1C Fingerstick:) 6.2 [facility] PracticeGlucose [Mass/volume] in Capillary itqpv0826-11-28 08:51:14* Test Item Value Reference Range Interpretation Comme nts Blood Glucose: mg/dl (test c ode = Blood Glucose: mg/dl) 127 [facility] CenterCHEM [id number] 09:59:00* Test Item Value Reference Range Interpretation Comme nts Glucose Lvl (test code = Glucose Lvl) 101 70-99 [facility]ggcxxwACWFVZJKUG6442-24-01 09:59:00* Test Item Value Reference Range Interpretation Comme nts Segs (test code = Segs) 53.1 45.0-75.0 [facility] [id number] 15:37:00* Test Item Value Reference Range Interpretation Comme nts Glucose Lvl (test code = Glucose Lvl) 190 70- [facility] HospitalAtpojdqACBJRMUZOU0549-48-57 15:37:00* Test Item Value Reference Range Interpretation Comme nts WBC X 10x3 (test code = WBC X 10x3) 7.4 3.7-10.4 [facility]2021-09-11 07:38:00* Test Item Value Reference Range Interpretation Comme nts Glucose Lvl (test code = Glucose Lvl) 127 70- [facility] HospitalHnfxeldNELWHRMBBA5419-61-16 07:38:00* Test Item Value Reference Range Interpretation Comme nts Segs (test code = Segs) 63.3 45.0-75.0 [id number] 07:38:00* Test Item Value Reference Range Interpretation Comme nts Ca Ion WB (test code = Ca Ion WB) 1.15 1.05-1.25 [facility] CenterMbxwbflMYIGZICBOSED9830-73-07 21:20:00* Test Item Value Reference Range Interpretation Comme nts Potassium Lvl (test code = P otassium Lvl) 3.8 3.5-5.1 [facility] [id number] 07:51:00* Test Item Value Reference Range Interpretation Comme nts Glucose Lvl (test code = Glucose Lvl) 178 70- [facility] HospitalUqtazlaNDPJRKQWYP7798-74-36 07:51:00* Test Item Value Reference Range Interpretation Comme nts WBC X 10x3 (test code = WBC X 10x3) 8.9 3.7-10.4 [facility] [id number] 07:51:00* Test Item Value Reference Range Interpretation Comme nts Ca Ion WB (test code = Ca Ion WB) 1.21 1.05-1.25 [facility] Centerinvi [id number] 02:59:00* Test Item Value Reference Range Interpretation Comme nts Lactic Acid Lvl (test code = Lactic Acid Lvl) 1.2 0.5-2.2 [facility] [id number] 20:42:00* Test Item Value Reference Range Interpretation Comme nts Lactic Acid Lvl (test code = Lactic Acid Lvl) 3.4 0.5-2.2 [facility]2021-09-09 14:34:00* Test Item Value Reference Range Interpretation Comme nts Lactic Acid Lvl (test code = Lactic Acid Lvl) 6.8 0.5-2.2 [id number] 14:34:00* Test Item Value Reference Range Interpretation Comme nts Segs (test code = Segs) 83.9 45.0-75.0 [facility] [id number] 14:34:00* Test Item Value Reference Range Interpretation Comme nts Ca Ion WB (test code = Ca Ion WB) 1.19 1.05-1.25 [id number] 07:44:00* Test Item Value Reference Range Interpretation Comme nts POC Activated Clotting Time (test code = POC Activated Clotting Time) 154 s [facility] [id number] 07:19:00* Test Item Value Reference Range Interpretation Comme nts Total Protein (test code = T otal Protein) 6.1 6.4-8.4 [id number] 07:19:00* Test Item Value Reference Range Interpretation Comme nts PT (test code = PT) 16.4 s 12.0-14.7 [id number] 01:01:00* Test Item Value Reference Range Interpretation Comme nts PTT (test code = PTT) 33.1 s 22.9-35.8 [facility] [id number] 20:48:00* Test Item Value Reference Range Interpretation Comme nts Total Protein (test code = T otal Protein) 5.9 6.4-8.4 [id number] 20:44:00* Test Item Value Reference Range Interpretation Comme nts PTT (test code = PTT) 29.3 s 22.9-35.8 [facility] [id number] 19:21:00* Test Item Value Reference Range Interpretation Comme nts FFP product (test code = FFP product) Product available (07/24/21 2:21 PM) [facility] [id number] 14:50:00* Test Item Value Reference Range Interpretation Comme nts MRSA by PCR (test code = MRSA by PCR) Negative (07/23/21 9:50 AM) [facility] [id number] 14:50:00* Test Item Value Reference Range Interpretation Comme nts ABO/Rh (test code = ABO/Rh) A POS [facility] [id number] 14:50:00* Test Item Value Reference Range Interpretation Comme nts PTT (test code = PTT) 31.6 s 22.9-35.8 [facility] CenterYefjusmRPKWJF8235-68-27 14:50:00* Test Item Value Reference Range Interpretation Comme nts Trig (test code = Trig) 118 [facility] URTLWZFDH0749-74-00 14:50:00* Test Item Value Reference Range Interpretation Comme nts Hgb A1C (test code = Hgb A1C) 7.2 [facility] HTARDDW5623-93-46 14:47:00* Test Item Value Reference Range Interpretation Comme nts RBC product (test code = RBC product) Product available (07/23/21 9:47 AM) [facility] CenterZbnozmhSWVRTTMYLT6787-55-30 13:23:00* Test Item Value Reference Range Interpretation Comme nts Coronavirus (COVID-19) JANNA (test code = Coronavirus (COVID-19) JANNA) Not Detected (07/23/21 8:23 AM) [facility] CenteriWOPIBreathing capacity mejd7535-58-66 05:00:00SEE IMAGELINKInterface, [facility] Imaging Results - 07/23/2021 12:02 PM CDTFormatting of this note mightbe different from the original.SEE IMAGELINKUT HealthELECTROLYTES 2021-06-05 15:47:00* Test Item Value Reference Range Interpretation Comme nts POC Sodium (test code = POC Sodium) 141 135-145 [facility] CenterCHEM [id number] 15:37:00* Test Item Value Reference Range Interpretation Comme nts Glucose Lvl (test code = Glucose Lvl) 196 70-99 [facility] HospitalVifxbtiEPBENUCKHL8931-47-73 15:37:00* Test Item Value Reference Range Interpretation Comme nts WBC (test code = WBC) 7.7 3.7-10.4 [facility] [id number] 22:03:00* Test Item Value Reference Range Interpretation Comme nts POC Creatinine (test code = POC Creatinine) 1.0 0.5-1.4 [facility] CenterGdbykqzAYMUVBNYZLIV0976-76-53 13:28:00* Test Item Value Reference Range Interpretation Comme nts POC Sodium (test code = POC Sodium) 140 135-145 [facility] [id number] 12:54:00* Test Item Value Reference Range Interpretation Comme nts Glucose Lvl (test code = Glucose Lvl) 158 70-99 [facility]NekjpvbFZXMPGCUDW9103-27-15 12:54:00* Test Item Value Reference Range Interpretation Comme nts WBC (test code = WBC) 6.9 3.7-10.4 [facility] CenterMcangmfGKPYPWVTWE8391-00-56 18:43:00* Test Item Value Reference Range Interpretation Comme nts Coronavirus (COVID-19) JANNA (test code = Coronavirus (COVID-19) JANNA) Not Detected (04/16/21 1:43 PM) [facility] GLUCOSE (AUTOMATED)2020-10-03 22:57:00* Test Item Value Reference Range Interpretation Comme nts POCT GLU (test code = 5708417728) 233 mg/dL 70-110 H Notified Provide r Lab Interpretation (test code = 24111-1) Abnormal [facility] GLUCOSE (AUTOMATED)2020-10-03 21:05:00* Test Item Value Reference Range Interpretation Comme nts POCT GLU (test code = 4949070590) 282 mg/dL 70-110 H Lab Interpretation (test cod e = 19404-9) Abnormal [facility] GLUCOSE (AUTOMATED)2020-10-03 20:12:00* Test Item Value Reference Range Interpretation Comme nts POCT GLU (test code = 9214809846) 307 mg/dL 70-110 H Lab Interpretation (test cod e = 27576-5) Abnormal [facility] GLUCOSE (AUTOMATED)2020-10-03 17:27:00* Test Item Value Reference Range Interpretation Comme [facility] POCT GLU (test code = 2179568843) 302 mg/dL 70-110 H Notified Provide r Lab Interpretation (test code = 02895-0) [facility]normal [facility])2020-10-03 13:41:00* Test Item Value Reference Range Interpretation Comme [facility] POCT GLU (test code = 4397491571) 140 mg/dL 70-110 H Notified Provide r Lab Interpretation (test code = 79890-9) Abnormal [facility] ArlingtonN-TERMINAL [id number]-[id number] 12:14:00* Test Item Value Reference Range Interpretation Comme [facility] NT-proBNP (test code = 3518728075) 722 pg/mL See_Comment H [Automated message] The system which generated this result transmitted reference range: <=125. The reference range was not used to interpret this result as normal/abnormal. KARSON (test code = KARSON) Biotin has been reported to cause a negative bias, interpret results relative to patient's use of biotin. Lab Interpretation (test code = 55860-7) Abnormal [facility] METABOLIC PANEL (NA, K, CL, CO2, GLUCOSE, BUN, CREATININE, CA)2020-10-03 12:01:00* Test Item Value Reference Range Interpretation Comme [facility] NA (test code = 4461294232) 135 mmol/L 135-145 K (test code = 0022134079) 3.5 mmol/L 3.5-5 CL (test code = 0578914608) 102 mmol/L 98-108 CO2 TOTAL (test code = 1881498189) 30 mmol/L 23-31 AGAP (test code = 7984521174) 2-16 BUN (test code = 2633797455) 28 mg/dL 7-23 H GLUCOSE (test code = 9765051926) 140 mg/dL 70-110 H CREATININE (test code = 3958124134) 0.96 mg/dL 0.6-1.25 CALCIUM (test code = 3863256780) 8.6 mg/dL 8.6-10.6 eGFR Calculation (Non-) (test code = 4070410108) mL/min/1.73m2 eGFR Calculation () (test code = 3257326012) mL/min/1.73m2 KARSON (test code = KARSON) Association of [...] or abnormalities in imaging tests). Lab Interpretation (test code = 24041-3) Abnormal [facility]2020-11-18 12:01:00* Test Item Value Reference Range Interpretation Comme nts MAGNESIUM (test code = 0596931463) 2.2 mg/dL 1.7-2.4 Lab Interpretation (test cod e = 98863-4) Normal [facility] ONLY COVID SDYWTNHUUZTVUL8925-23-44 11:39:00COVID DMT InterpretationInterpretation/Recommendations: Molecular NAAT Test Results for Active Infection by SARS-CoV-2 Virus: This result indicates that the patient has tested negative on one occasion for the SARS-CoV-2 virus that causes COVID-19 illness. The most likely interpretation for approximately two-thirds of patients with a negative test is that the patient is truly negative and has not been infected with the SARS-CoV-2 virus. However, for those tested using a nasopharyngeal sample, there is approximately a olb-kq-qbhjp chance that the patient was infected and the result of the firsttest is a "false" negative. This occurs because the virus is predominantly in the lung and out of reach of the nasopharyngeal swab. If the patient continues to have persistent or worsening symptoms, a repeat NAAT test (PCR, Rapid ID Now, etc.) should [...] infections with the SARS-CoV-2 virus. ? ? InterpretationResult Comments:These interpretation comments are based upon aggregate COVID-19 test results pooledfrom [facility]. They apply to the following tests offered at [facility] and assume the acceptable specimen type(s) were used: A. Tests for the Identification of SARS-CoV-2 RNA (Molecular NAAT Tests):SARS-CoV-2 PCR assays including [place] Aptima, [place] Fusion, Mullins RealTime, and [facility] Xpert Xpress. SARS-CoV-2 Rapid ID NOW by the ID NOW assay.? B. Tests for the Identification of SARS-CoV-2 Antibodies: Chemiluminescent immunoassays including Access SARS-CoV-2 IgM (DXI 600), VITROS Lkcc-WGEY-GkG-2 IgG (Vitros 5600 and Vitros 3600), and Mullins SARS-CoV-2 IgG (SUPERVISOR PUMPING I System). ?These interpretations are autopopulated into [employer] based on computerized algorithms matching an interpretation code to the patient's set of test results, and a clinical pathologist evaluates the comments for accuracy. However, these comments do not consider testing a patient may have had outside of the [facility] system. If results for COVID-19 infection continue to be negative in the context of a suspected viral respiratory illness, it is possible the patient may have an infection with another respiratory virus. Influenza testing and a respiratory pathogen panel if clinically indicated may be beneficial in this setting. If there continues to be a high degree of clinical suspicion for COVID-19 illness despite multiplenegative tests on nasopharyngeal specimens, then it may be necessary to test the patient for the SARS-CoV-2 virus using lower respiratory tract samples (such as sputum, bronchoalveolar lavage fluid (BAL), tracheal aspirate, etc.). ?[facility] LABORATORY SERVICESCOVID TchbhqoKWKT-TeR-8 Rapid ID NOW (no units) ? ? Date ? Value ? 09/27/2020 ? Not Detected ? [facility]2020-10-03 02:18:00* Test Item Value Reference Range Interpretation Comme nts POCT GLU (test code = 9863296480) 253 mg/dL 70-110 H Lab Interpretation (test cod e = 26993-6) Abnormal [facility] GLUCOSE (AUTOMATED)2020-10-03 00:29:00* Test Item Value Reference Range Interpretation Comme nts POCT GLU (test code = 3078335132) 203 mg/dL 70-110 H Notified Provide r Lab Interpretation (test code = 88312-0) Abnormal [facility] GLUCOSE (AUTOMATED)2020-10-02 20:08:00* Test Item Value Reference Range Interpretation Comme nts POCT GLU (test code = 8907453754) 207 mg/dL 70-110 H Lab Interpretation (test cod e = 86275-3) Abnormal [facility] GLUCOSE (AUTOMATED)2020-10-02 16:11:00* Test Item Value Reference Range Interpretation Comme nts POCT GLU (test code = 1824689151) 230 mg/dL 70-110 H Lab Interpretation (test cod e = 57263-1) Abnormal [facility] GLUCOSE (AUTOMATED)2020-10-02 14:12:00* Test Item Value Reference Range Interpretation Comme nts POCT GLU (test code = 9770765722) 165 mg/dL 70-110 H Notified Provide r Lab Interpretation (test code = 78079-7) Abnormal [facility] METABOLIC PANEL (NA, K, CL, CO2, GLUCOSE, BUN, CREATININE, CA)2020-10-02 13:48:00* Test Item Value Reference Range Interpretation Comme nts NA (test code = 8424645369) 136 mmol/L 135-145 K (test code = 1290791864) 4.0 mmol/L 3.5-5 CL (test code = 6270339386) 98 mmol/L 98-108 CO2 TOTAL (test code = 1337399327) 31 mmol/L 23-31 AGAP (test code = 4919388135) 2-16 BUN (test code = 4573821892) 29 mg/dL 7-23 H GLUCOSE (test code = 7174183567) 148 mg/dL 70-110 H CREATININE (test code = 3354851453) 1.11 mg/dL 0.6-1.25 CALCIUM (test code = 1347133687) 8.9 mg/dL 8.6-10.6 eGFR Calculation (Non-) (test code = 5101283685) mL/min/1.73m2 eGFR Calculation () (test code = 2837767855) mL/min/1.73m2 KARSON (test code = KARSON) Association of [...] or abnormalities in imaging tests). Lab Interpretation (test code = 34688-7) Abnormal [facility]2020-11-17 13:48:00* Test Item Value Reference Range Interpretation Comme nts MAGNESIUM (test code = 1709059307) 2.2 mg/dL 1.7-2.4 Lab Interpretation (test cod e = 52953-1) Normal [facility] GLUCOSE (AUTOMATED)2020-10-02 10:37:00* Test Item Value Reference Range Interpretation Comme nts POCT GLU (test code = 8233935232) 150 mg/dL 70-110 H Lab Interpretation (test cod e = 45267-6) Abnormal [facility] GLUCOSE (AUTOMATED)2020-10-02 06:07:00* Test Item Value Reference Range Interpretation Comme nts POCT GLU (test code = 3328850536) 176 mg/dL 70-110 H Lab Interpretation (test cod e = 60565-0) Abnormal [facility] GLUCOSE (AUTOMATED)2020-10-02 02:30:00* Test Item Value Reference Range Interpretation Comme nts POCT GLU (test code = 4222225609) 246 mg/dL 70-110 H Lab Interpretation (test cod e = 20757-1) Abnormal [facility] GLUCOSE (AUTOMATED)2020-10-01 23:06:00* Test Item Value Reference Range Interpretation Comme nts POCT GLU (test code = 1520095757) 243 mg/dL 70-110 H Lab Interpretation (test cod e = 96967-8) Abnormal [facility]NM MYOCARDIAL VIABILITY [id number] 22:15:07Impression: 1) Evidence of complete viability in the RCA and LCX territory.2) Non-viable scar at the apex, apical segment and mid anterior wall3) Moderately dilated LV, with severely reduced function, with aneurysmalapical segments, and wall motion abnormalities as above. Images interpreted by ?Dr Cammy mckay Final interpretation by Reji Randall MD. Resting myocardial perfusion imaging report Type: NTG enhanced resting GATED SPECT IMAGING WITH ?Technetium 99 labeledtetrofosmin. Indication: Chest Pain Clinical history: Viability eval Please perform NTG enhanced rest 1stprotocol ( give 1-2 SLNTG prior to rest imaging). Procedure: Gated SPECT imaging was acquired ?five minutes after 2 SL NTGadministration following ?the injection of 35 millicuries of technetiumlabeled tetrofosmin.Resting EKG revealed afib with septal/ anterior infarct pattern ? Findings: The overall quality of the studywas Adequate. SPECT images demonstrate severely reduced ?uptake at the apex, apicalsegments, and mid anterior wall with aneurysmal apex. Gated SPECT images demonstrate akinesis of the hypoperfused segments, withsevere hypokinesis in the other segments. Stress Values: ?EDV = 228 mL; ESV = 180 mL; EF= 21%. [facility], Radiant Results Inft User - 10/01/2020 4:16 PM CSTResting myocardial perfusion imagingreportType: NTG enhanced resting GATED SPECT IMAGING WITH Technetium 99 labeledtetrofosmin.Indication: Chest PainClinical history: Viability eval Please perform NTG enhanced rest 1stprotocol ( give 1-2 SL NTG prior to rest imaging).Procedure:Gated SPECT imaging was acquired five minutes after 2 SL N TGadministration following the injection of 35 millicuries of technetiumlabeled tetrofosmin.RestingEKG revealed afib with septal/ anterior infarct pattern [...] viability in the RCA and LCX territory.2) Non-viablescar at the apex, apical segment and mid anterior wall3) Moderately dilated LV, with severely reduced function, with aneurysmalapical segments, and wall motion abnormalities as above.Images interpreted by Dr Rey interpretation by Reji Randall MD.[facility]PO[facility]OM[facility])2020-10-01 16:35:00 * Test Item Value Reference Range Interpretation Comme nts POCT GLU (test code = 4441772821) 229 mg/dL 70-110 H Lab Interpretation (test cod e = 28026-9) Abnormal [facility] GLU[facility]SE (AUTOMATED)2020-10-01 13:40:00* Test Item Value Reference Range Interpretation Comme [facility] POCT GLU (test code = 8054860849) 244 mg/dL 70-110 H Lab Interpretation (test cod e = 46297-8) Abnormal [facility] METABOLIC PANEL (NA, K, CL, CO2, GLUCOSE, BUN, CREATININE, CA)2020-10-01 12:51:00* Test Item Value Reference Range Interpretation Comme [facility] NA (test code = 0971328680) 134 mmol/L 135-145 L K (test code = 4030304268) 3.9 mmol/L 3.5-5 CL (test code = 6566734216) 97 mmol/L 98-108 L CO2 TOTAL (test code = 5809598615) 32 mmol/L 23-31 H AGAP (test code = 4925860695) 2-16 BUN (test code = 0437332358) 23 mg/dL 7-23 GLUCOSE (test code = 5472374523) 237 mg/dL 70-110 H CREATININE (test code = 1105576747) 1.01 mg/dL 0.6-1.25 CALCIUM (test code = 3685651212) 8.6 mg/dL 8.6-10.6 eGFR Calculation (Non-) (test code = 2759604662) mL/min/1.73m2 eGFR Calculation () (test code = 5520313915) mL/min/1.73m2 KARSON (test code = KARSON) Association of [...] or abnormalities in imaging tests). Lab Interpretation (test code = 77173-4) [facility] 12:51:00* Test Item Value Reference Range Interpretation Comme nts MAGNESIUM (test code = 7019709815) 1.9 mg/dL 1.7-2.4 Lab Interpretation (test cod e = 04112-1) Normal [facility] GLUCOSE (AUTOMATED)2020-10-01 10:40:00* Test Item Value Reference Range Interpretation Comme nts POCT GLU (test code = 6764779777) 230 mg/dL 70-110 H Lab Interpretation (test cod e = 28004-3) Abnormal [facility] GLUCOSE (AUTOMATED)2020-10-01 06:00:00* Test Item Value Reference Range Interpretation Comme nts POCT GLU (test code = 3823645261) 281 mg/dL 70-110 H Lab Interpretation (test cod e = 90201-2) Abnormal [facility] GLUCOSE (AUTOMATED)2020-10-01 01:18:00* Test Item Value Reference Range Interpretation Comme nts POCT GLU (test code = 0100720411) 201 mg/dL 70-110 H Lab Interpretation (test cod e = 48509-6) Abnormal [facility] GLUCOSE (AUTOMATED)2020-09-30 22:45:00* Test Item Value Reference Range Interpretation Comme nts POCT GLU (test code = 4356826984) 239 mg/dL 70-110 H Lab Interpretation (test cod e = 70487-3) Abnormal [facility] GLUCOSE (AUTOMATED)2020-09-30 18:42:00* Test Item Value Reference Range Interpretation Comme [facility] POCT GLU (test code = 7760457822) 305 mg/dL 70-110 H Notified Provide r Lab Interpretation (test code = 50435-9) Abnormal [facility] GLUCOSE (AUTOMATED)2020-09-30 15:23:00* Test Item Value Reference Range Interpretation Comme [facility] POCT GLU (test code = 7479837411) 259 mg/dL 70-110 H Lab Interpretation (test cod e = 80588-9) Abnormal [facility] METABOLIC PANEL (NA, K, CL, CO2, GLUCOSE, BUN, CREATININE, CA)2020-09-30 11:28:00* Test Item Value Reference Range Interpretation Comme [facility] NA (test code = 7902639009) 133 mmol/L 135-145 L K (test code = 6449938575) 4.1 mmol/L 3.5-5 CL (test code = 2846050084) 98 mmol/L 98-108 CO2 TOTAL (test code = 4866996699) 29 mmol/L 23-31 AGAP (test code = 1056387549) 2-16 BUN (test code = 4026732807) 23 mg/dL 7-23 GLUCOSE (test code = 8256234195) 275 mg/dL 70-110 H CREATININE (test code = 2322325029) 0.91 mg/dL 0.6-1.25 CALCIUM (test code = 0131024996) 8.6 mg/dL 8.6-10.6 eGFR Calculation (Non-) (test code = 3143223623) mL/min/1.73m2 eGFR Calculation () (test code = 9961231442) mL/min/1.73m2 KARSON (test code = KARSON) Association of [...] or abnormalities in imaging tests). Lab Interpretation (test code = 39630-9) Abnormal [facility]2020-11-15 11:28:00* Test Item Value Reference Range Interpretation Comme [facility] MAGNESIUM (test code = 2354239721) 1.9 mg/dL 1.7-2.4 Lab Interpretation (test cod e = 33039-5) Normal [facility]aPTT (for use with Heparin Drip)2020-09-30 11:23:00* Test Item Value Reference Range Interpretation Comme nts APTT Patient (test code = 3173-2) See_Comment [Automated NewACT] The system which generated this result transmitted reference range: 26 - 36 Seconds. The reference range was not used to interpret this result as normal/abnormal. Lab Interpretation (test code = 84764-9) Normal [facility] GLUCOSE (AUTOMATED)2020-09-30 10:54:00* Test Item Value Reference Range Interpretation Comme nts POCT GLU (test code = 0705274245) 267 mg/dL 70-110 H Lab Interpretation (test cod e = 85828-6) Abnormal [facility] GLUCOSE (AUTOMATED)2020-09-30 05:38:00* Test Item Value Reference Range Interpretation Comme [facility] POCT GLU (test code = 1941062346) 217 mg/dL 70-110 H Lab Interpretation (test cod e = 24011-3) Abnormal [facility] GLUCOSE (AUTOMATED)2020-09-30 03:07:00* Test Item Value Reference Range Interpretation Comme nts POCT GLU (test code = 3376996892) 234 mg/dL 70-110 H Lab Interpretation (test cod e = 22757-3) Abnormal [facility] GLUCOSE (AUTOMATED)2020-09-30 00:33:00* Test Item Value Reference Range Interpretation Comme nts POCT GLU (test code = 6824913067) 292 mg/dL 70-110 H Notified Provide r Lab Interpretation (test code = 22540-1) Abnormal [facility] GLUCOSE (AUTOMATED)2020-09-29 21:54:00* Test Item Value Reference Range Interpretation Comme nts POCT GLU (test code = 6214909316) 414 mg/dL 70-110 H Lab Interpretation (test cod e = 46085-4) Abnormal [facility] GLUCOSE (AUTOMATED)2020-09-29 18:31:00* Test Item Value Reference Range Interpretation Comme nts POCT GLU (test code = 5681097792) 341 mg/dL 70-110 H Notified Provide r Lab Interpretation (test code = 16643-7) Abnormal [facility] GLUCOSE (AUTOMATED)2020-09-29 14:49:00* Test Item Value Reference Range Interpretation Comme nts POCT GLU (test code = 3147709443) 146 mg/dL 70-110 H Lab Interpretation (test cod e = 85217-7) Abnormal [facility] GLUCOSE (AUTOMATED)2020-09-29 11:44:00* Test Item Value Reference Range Interpretation Comme nts POCT GLU (test code = 8218330190) 139 mg/dL 70-110 H Lab Interpretation (test cod e = 85760-1) Abnormal [facility] ArlingtonGLYCOSYLATED HEMOGLOBIN (A1C)2020-09-29 09:15:00* Test Item Value Reference Range Interpretation Comme nts HGB A1C (test code = 4548-4) 8.8 % 4-6 H Lab Interpretation (test cod e = 61032-2) Abnormal [facility] ArlingtonTroponin L1672-59-81 08:42:00* Test Item Value Reference Range Interpretation Comme nts TROPONIN I (test code = 8366982392) 0.101 ng/mL See_Comment H [Automated message] The system which generated this result transmitted reference range: <=0.034. The reference range was not used to interpret this result as normal/abnormal. KARSON (test code = KARSON) Equal or Less than 0.034 ng/ml---Normal ?Note: Cardiac troponin begins to [...] patient's use of biotin. ? Lab Interpretation (test code = 53731-0) Abnormal [facility] (NA, K, CL, CO2, GLUCOSE, BUN, CREATININE, CA)2020-09-29 08:25:00* Test Item Value Reference Range Interpretation Comme nts NA (test code = 9674419438) 135 mmol/L 135-145 K (test code = 2394830441) 3.9 mmol/L 3.5-5 CL (test code = 4138910668) 100 mmol/L 98-108 CO2 TOTAL (test code = 2490538025) 32 mmol/L 23-31 H AGAP (test code = 9017641182) 2-16 BUN (test code = 1837681938) 17 mg/dL 7-23 GLUCOSE (test code = 8531815109) 213 mg/dL 70-110 H CREATININE (test code = 9214798911) 0.76 mg/dL 0.6-1.25 CALCIUM (test code = 4139032973) 8.8 mg/dL 8.6-10.6 eGFR Calculation (Non-) (test code = 5208754060) mL/min/1.73m2 eGFR Calculation () (test code = 0281923285) mL/min/1.73m2 KARSON (test code = KARSON) Association of [...] or abnormalities in imaging tests). Lab Interpretation (test code = 85545-9) Abnormal [facility]2020-11-14 08:25:00* Test Item Value Reference Range Interpretation Comme [facility] MAGNESIUM (test code = 3860221144) 2.0 mg/dL 1.7-2.4 Lab Interpretation (test cod e = 23121-6) Normal [facility]aPTT (for use with Heparin Drip)2020-09-29 08:02:00* Test Item Value Reference Range Interpretation Comme nts APTT Patient (test code = 3173-2) See_Comment H [Automated NewACT] The system which generated this result transmitted reference range: 26 - 36 Seconds. The reference range was not used to interpret this result as normal/abnormal. Lab Interpretation (test code = 67116-0) Abnormal [facility] GLUCOSE (AUTOMATED)2020-09-29 07:46:00* Test Item Value Reference Range Interpretation Comme nts POCT GLU (test code = 0844637287) 213 mg/dL 70-110 H Lab Interpretation (test cod e = 47613-6) Abnormal [facility] GLUCOSE (AUTOMATED)2020-09-29 04:38:00* Test Item Value Reference Range Interpretation Comme nts POCT GLU (test code = 2178057356) 335 mg/dL 70-110 H Lab Interpretation (test cod e = 68809-2) Abnormal [facility] GLUCOSE (AUTOMATED)2020-09-29 01:41:00* Test Item Value Reference Range Interpretation Comme nts POCT GLU (test code = 6438633662) 326 mg/dL 70-110 H Lab Interpretation (test cod e = 02451-1) Abnormal [facility]aP[facility] (for use with Heparin Drip)2020-09-28 23:01:00* Test Item Value Reference Range Interpretation Comme nts APTT Patient (test code = 3173-2) See_Comment [Automated NewACT] The system which generated this result transmitted reference range: 26 - 36 Seconds. The reference range was not used to interpret this result as normal/abnormal. Lab Interpretation (test code = 33241-6) Normal [facility] GLUCOSE (AUTOMATED)2020-09-28 13:53:00* Test Item Value Reference Range Interpretation Comme nts POCT GLU (test code = 4429784422) 192 mg/dL 70-110 H Lab Interpretation (test cod e = 08112-7) [facility]normal [facility] [facility]Trop[facility] [id number] 11:02:00* Test Item Value Reference Range Interpretation Comme nts TROPONIN I (test code = 5893436332) 0.184 ng/mL See_Comment H [Automated message] The system which generated this result transmitted reference range: <=0.034. The reference range was not used to interpret this result as normal/abnormal. KARSON (test code = KARSON) Equal or Less than 0.034 ng/ml---Normal ?Note: Cardiac troponin begins to [...] patient's use of biotin. ? Lab Interpretation (test code = 73207-3) [facility]normal [facility] ArlingtonLIP[facility] PANEL (90559)(TOTAL CHOLESTEROL, TRIGLYCERIDES, HDL)2020-09-28 10:35:00* Test Item Value Reference Range Interpretation Comme nts CHOL (test code = 5188739000) 150 mg/dL 120-200 HDL (test code = 1527859232) 40 mg/dL >40 L HDLC RATIO (test code = 8918795600) See_Comment [Automated NewACT] The system which generated this result transmitted reference range: <=5.0. The reference range was not used to interpret this result as normal/abnormal. TRIG (test code = 0381840953) 134 mg/dL 30-170 LDL CHOL (test code = 47570-9) 83 mg/dL See_Comment [Automated NewACT] The system which generated this result transmitted reference range: <=160. The reference range was not used to interpret this result as normal/abnormal. VLDL (test code = 2297791976) 27 mg/dL 5-60 Lab Interpretation (test code = 26401-5) [facility]normal [facility] (for use with Heparin Drip)2020-09-28 09:57:00* Test Item Value Reference Range Interpretation Comme nts APTT Patient (test code = 3173-2) See_Comment H [Automated [employer]] The system which generated this result transmitted reference range: 26 - 36 Seconds. The reference range was not used to interpret this result as normal/abnormal. Lab Interpretation (test code = 59947-3) [facility]normal [facility]PO[facility] GLUCOSE (AUTOMATED)2020-09-28 06:35:00* Test Item Value Reference Range Interpretation Comme [facility] POCT GLU (test code = 8682246440) 271 mg/dL 70-110 H Lab Interpretation (test cod e = 74689-9) [facility]normal [facility] ArlingtonTroponin [id number] 05:06:00* Test Item Value Reference Range Interpretation Comme [facility] TROPONIN I (test code = 2882431158) 0.189 ng/mL See_Comment H [Automated message] The system which generated this result transmitted reference range: <=0.034. The reference range was not used to interpret this result as normal/abnormal. KARSON (test code = KARSON) Equal or Less than 0.034 ng/ml---Normal ?Note: Cardiac troponin begins to [...] patient's use of biotin. ? Lab Interpretation (test code = 12444-0) [facility]normal [facility] (for use with Heparin Drip)2020-09-28 03:55:00* Test Item Value Reference Range Interpretation Comme [facility] APTT Patient (test code = 3173-2) See_Comment H [Automated messa ge] The system which generated this result transmitted reference range: 26 - 36 Seconds. The reference range was not used to interpret this result as normal/abnormal. Lab Interpretation (test code = 77938-7) Abnormal [facility] ArlingtonCT CHEST PULMONARY [id number] 21:42:18HISTORY: Positive d-dimer, rule out P.E. TECHNIQUE: Contrast-enhanced 64-mutidetector CT scan of the chest wascompleted with intravenous injection of ?non ionic contrast medium.Subsequently numerous sagittal, coronal and MIP reformations weregenerated. FINDINGS: Included portions of the thyroid gland are unremarkable. Tracheaand central bronchial airways appear normal. Some of the peripheralbronchial airways in the lower lungs showed wall thickening. Congestion isseen in both lower lungs. Groundglass haziness noted predominantly in theright lung with bilateral pleural effusion, slightly larger on the rightside.Cardiomegaly noted with triple-vessel coronary atherosclerosis.Calcification is seen also in some of the medium-sized arteries in theabdomen.No acute pulmonary thromboembolism. No aortic aneurysm or aorticdissection. Scattered subcentimeter lymph nodes are seen near the tracheaandin the naomi. Next No aggressive bone lesions [...] poorlycontrolled diabetes. Please correlate. [facility], Radiant Results InftUser - 09/27/2020 3:43 PM CSTHISTORY: Positive d- dimer, rule out P.E.TECHNIQUE: Contrast-enhanced 64-mutidetector CT scan of the chest wascompleted with intravenous injection of non ionic contrast med ium.Subsequently numerous sagittal, coronal and MIP reformations weregenerated.FINDINGS: Included portions of the thyroid gland are unremarkable. Tracheaand central bronchial airways appear normal. Some of the peripheralbronchial airways in the lower lungs showed wall thickening. Congestion isseen in both lower lungs. Groundglass haziness noted predominantly in theright lung with bilateral pleural effusion, slightly larger on the rightside.Cardiomegaly noted with triple-vessel coronary atheroscl erosis.Calcification is seen also in some of the [...] arteries and some of the arteries in theabdomenraise concern for possibility of chronic history of poorlycontrolled diabetes. Please correlate. [facility] ArlingtonLACTATE [id number] 21:42:00* Test Item Value Reference Range Interpretation Comme nts LDH (test code = 6021930817) 678 U/L 300-600 H Lab Interpretation (test cod e = 31059-5) Abnormal [facility] ArlingtonCOVID-19 (ID NOW RAPID TESTING)2020-09-27 19:56:00* Test Item Value Reference Range Interpretation Comme nts SARS-CoV-2 Rapid ID NOW (test code = 57347-8) Not Detected Not Detected KARSON (test code = KARSON) ID NOW COVID-19 As say is an isothermal nucleic acid amplification test intended for the qualitative detection of nucleic acid from SARS-CoV-2 viral RNA in nasopharyngeal (PUBLISHER ASSISTANT) specimens. It is used under Emergency Use [...] patient testing if clinically indicated. Lab Interpretation (test code = 06572-0) Normal [facility] ArlingtonaPTT2020-11-12 19:50:00* Test Item Value Reference Range Interpretation Comme [facility] APTT Patient (test code = 3173-2) See_Comment [Automated message] The system which generated this result transmitted reference range: 23 - 38 Seconds. The reference range was not used to interpret this result as normal/abnormal. KARSON (test code = KARSON) The [facility] patient population mean normal value for aPTT is 30 seconds. Lab Interpretation (test code = 45346-1) Normal [facility] ArlingtonProthrombin Time (PT) / [id number] 19:50:00 * Test Item Value Reference Range Interpretation Comme [facility] PROTIME PATIENT (test code = 5964-2) See_Comment [Automated messa ge] The system which generated this result transmitted reference range: 12.0 - 14.7 Seconds. The reference range was not used to interpret this result as normal/abnormal. INR (test code = 6301-6) Normal INR <1.1; Warfarin Therapeutic range 2.0 to 3.0 or 2.5 to 3.5, depending upon the indications. Lab Interpretation (test code = 31499-1) Normal [facility] ArlingtonTroponin [id number] 19:48:00* Test Item Value Reference Range Interpretation Comme [facility] TROPONIN I (test code = 6030340603) 0.207 ng/mL See_Comment H [Automated message] The system which generated this result transmitted reference range: <=0.034. The reference range was not used to interpret this result as normal/abnormal. KARSON (test code = KARSON) Equal or Less than 0.034 ng/ml---Normal ?Note: Cardiac troponin begins to [...] patient's use of biotin. ? Lab Interpretation (test code = 89418-6) Abnormal [facility] ArlingtonN-TERMINAL [id number] 19:46:00* Test Item Value Reference Range Interpretation Comme nts NT-proBNP (test code = 5333199480) 1370 pg/mL See_Comment H [Automated message] The system which generated this result transmitted reference range: <=125. The reference range was not used to interpret this result as normal/abnormal. KARSON (test code = KARSON) Biotin has been reported to cause a negative bias, interpret results relative to patient's use of biotin. Lab Interpretation (test code = 41806-9) Abnormal [facility] ArlingtonD-[id number] 19:37:00* Test Item Value Reference Range Interpretation Comments D-DIMER (test code = 9672354691) See_Comment H [Automated message] The system which generated this result transmitted reference range: <0.41 ?g/mL (FEU). The reference range was not used to interpret this result as normal/abnormal. KARSON (test code = KARSON) This test may be used in conjunction with a clinical pretest [...] context, in forming a diagnosis. Lab Interpretation (test code = 99470-8) [facility] (NA, K, CL, CO2, GLUCOSE, BUN, CREATININE, CA)2020-09-27 19:36:00* Test Item Value Reference Range Interpretation Comme nts NA (test code = 2647339152) 134 mmol/L 135-145 L K (test code = 9590681506) 4.9 mmol/L 3.5-5 CL (test code = 5973846014) 99 mmol/L 98-108 CO2 TOTAL (test code = 0900790547) 30 mmol/L 23-31 AGAP (test code = 2798689738) 2-16 BUN (test code = 8976234499) 22 mg/dL 7-23 GLUCOSE (test code = 8701739972) 216 mg/dL 70-110 H CREATININE (test code = 0317047128) 0.78 mg/dL 0.6-1.25 CALCIUM (test code = 6070364044) 9.3 mg/dL 8.6-10.6 eGFR Calculation (Non-) (test code = 0880299819) mL/min/1.73m2 eGFR Calculation () (test code = 6038545392) mL/min/1.73m2 KARSON (test code = KARSON) Association of [...] or abnormalities in imaging tests). Lab Interpretation (test code = 53473-4) Abnormal [facility]Hep[facility] Function Panel (ALB, T.PRO, BILI T, BU/BC, ALT, AST, ALK PHOS)2020-09-27 19:36:00* Test Item Value Reference Range Interpretation Comme nts TOTAL BILI (test code = 0976878448) 1.4 mg/dL 0.1-1.1 H BILI UNCON (test code = 1373529284) 0.8 mg/dL 0.1-1.1 BILI CONJ (test code = 3333473270) 0.0 mg/dL 0-0.3 T PROTEIN (test code = 5642415700) 7.2 g/dL 6.3-8.2 ALBUMIN (test code = 8226607034) 4.2 g/dL 3.5-5 ALK PHOS (test code = 0623073909) 53 U/L 34-122 ALTv (test code = 1742-6) 106 U/L 5-50 H AST(SGOT) (test code = 9293924567) 61 U/L 13-40 H Lab Interpretation (test cod e = 85892-9) Abnormal [facility] ArlingtonLipase [id number] 19:35:00* Test Item Value Reference Range Interpretation Comme nts LIPASE (test code = 3735570501) 41 U/L 0-220 Lab Interpretation (test cod e = 62711-3) Normal [facility] ArlingtonCBC with [id number] 19:19:00* Test Item Value Reference Range Interpretation Comme nts WBC (test code = 6690-2) See_Comment [Automated [employer]] The system which generated this result transmitted reference range: 4.20 - 10.70 10*3/?L. The reference range was not used to interpret this result as normal/abnormal. RBC (test code = 789-8) See_Comment [Automated [employer]] The system which generated this result transmitted reference range: 4.26 - 5.52 10*6/?L. The reference range was not used to interpret this result as normal/abnormal. HGB (test code = 718-7) 14.7 g/dL 12.2-16.4 HCT (test code = 4544-3) 43.7 % 38.4-49.3 MCV (test code = 787-2) 91.0 fL 81.7-95.6 MCH (test code = 785-6) 30.6 pg 26.1-32.7 MCHC (test code = 786-4) 33.6 g/dL 31.2-35 RDW-SD (test code = 85709-8) 44.4 fL 38.5-51.6 RDW-CV (test code = 788-0) 13.2 % 12.1-15.4 PLT (test code = 777-3) See_Comment [Automated messa ge] The system which generated this result transmitted reference range: 150 - 328 10*3/?L. The reference range was not used to interpret this result as normal/abnormal. MPV (test code = 67629-6) 11.4 fL 9.8-13 NRBC/100 WBC (test code = 5442474363) See_Comment [Automated me ssage] The system which generated this result transmitted reference range: 0.0 - 10.0 /100 WBCs. The reference range was not used to interpret this result as normal/abnormal. NRBC x10^3 (test code = 2837559052) <0.01 See_Comment [Automated me ssage] The system which generated this result transmitted reference range: 10*3/?L. The reference range was not used to interpret this result as normal/abnormal. GRAN MAT (NEUT) % (test code = 770-8) 60.5 % IMM GRAN % (test code = 4010046922) 0.60 % LYMPH % (test code = 736-9) 27.0 % MONO % (test code = 5905-5) 8.4 % EOS % (test code = 713-8) 2.9 % BASO % (test code = 706-2) 0.6 % GRAN MAT x10^3(ANC) (test code = 6021872496) 4.80 10*3/uL 1.99-6.95 IMM GRAN x10^3 (test code = 3111902777) 0.05 10*3/uL 0-0.06 LYMPH x10^3 (test code = 731-0) 2.14 10*3/uL 1.09-3.23 MONO x10^3 (test code = 742-7) 0.67 10*3/uL 0.36-1.02 EOS x10^3 (test code = 711-2) 0.23 10*3/uL 0.06-0.53 BASO x10^3 (test code = 704-7) 0.05 10*3/uL 0.01-0.09 [facility] ArlingtonChest 1 [id number] 19:01:56CHEST PORTABLE ONE VIEW HISTORY:CP, SOB TECHNIQUE: [...] projection of the chest is obtained.FINDINGS:Slight prominence of the vascular lung markings is noted. Heart size isborderline enlarged. No pleural effusion or pneumothorax is seen.CONCLUSIONS:1. Mild pulmonary edema and borderline cardiomegalyUnCarrollton Regional Medical Center Notes Date/Time Note Provider Source 2024-10-06 14:19:01 Radha Santana2024-11-21 14:19:01 Radha Santana
[2024-10-17 11:42] LABS: SARS-CoV-2 Antigen CONTROL BLUE LINE VIS/BG OK; SARS-CoV-2 Antigen Rapid Res Negative (Negative)
--- NOTE | 2024-10-17 12:00 | ER ---
Nurse's Notes [facility] Name: Artem Pena Age: 64 yrs Sex: Male : 1960 Arrival Date: 10/17/2024 Time: 10:12 Bed 14 Private MD: Diagnosis: Viral infection, unspecified Presentation: 10/17 10:33 Chief complaint: Patient states: fever, chills, body aches, is on IV antibiotics for iw wound on his foot , was told to come get checked for flu. Coronavirus screen: Client presents with at least one sign or symptom that may indicate coronavirus-19. Ebola Screen: No symptoms or risks identified at this time. Initial Sepsis Screen: Does the patient meet any 2 criteria? No. Patient's initial sepsis screen is negative. Does the patient have a suspected source of infection? No. Patient's initial sepsis screen is negative. Risk Assessment: Do you want to hurt yourself or someone else? Patient reports no desire to harm self or others. Onset of symptoms was October 15, 2024. 10:33 Method Of Arrival: Ambulatory iw 10:33 Acuity: TANGELA 4 iw Historical: - Allergies: 10:34 Latex; iw 10:34 Lisinopril; iw 10:34 metformin; iw 10:34 Urbpots-Mjr-Ard Reductase Inhibitors; iw - PMHx: 10:34 Congestive heart failure; diabetes mellitus; Hypertension; iw - PSHx: 10:34 Coronary artery bypass graft; iw - Immunization history:: Adult Immunizations up to date. - Infectious Disease History:: Denies. - Social history:: Smoking status: Patient denies any tobacco usage or history of. Screenin:45 [facility] ED Fall Risk Assessment (Adult) History of falling in the last 3 months, kc6 including since admission No falls in past 3 months (0 pts) Confusion or Disorientation No (0 pts) Intoxicated or Sedated No (0 pts) Impaired Gait No (0 pts) Mobility Assist Device Used No (0 pt) Altered Elimination No (0 pt) Score/Fall Risk Level 0 - 2 = Low Risk Oriented to surroundings, Maintained a safe environment. Abuse screen: Denies threats or abuse. Denies injuries from another. Nutritional screening: No deficits noted. Tuberculosis screening: No symptoms or risk factors identified. Assessment: 10:45 General: Appears in no apparent distress. comfortable, well groomed, well developed, kc6 Behavior is calm, cooperative, appropriate for age, Reports chills for 12-24 hours, fever for 12-24 hours, feeling ill for 12-24 hours. Pain: Denies pain. Neuro: Level of Consciousness is awake, alert, obeys commands, Oriented to person, place, time, situation, Appropriate for age. Cardiovascular: Capillary refill < 3 seconds. Respiratory: Airway is patent Trachea midline Respiratory effort is even, unlabored, Respiratory pattern is regular, symmetrical. GI: No signs and/or symptoms were reported involving the gastrointestinal system. : No signs and/or symptoms were reported regarding the genitourinary system. EENT: No signs and/or symptoms were reported regarding the EENT system. Derm: No signs and/or symptoms reported regarding the dermatologic system. Skin is healthy with good turgor, Skin is pink, warm \T\ dry. Musculoskeletal: No signs and/or symptoms reported regarding the musculoskeletal system. Circulation, motion, and sensation intact. Capillary refill < 3 seconds, Range of motion: intact in all extremities. Vital Signs: 10:33 BP 132 / 79; Pulse 75; Resp 16; Temp 98.2; Pulse Ox 98% on R/A; iw 12:17 BP 148 / 75; Pulse 76; Resp 16 S; Pulse Ox 100% on R/A; kc6 ED Course: 10:16 Patient arrived in ED. ec2 10:18 Nikolay Nicolas MD is Attending Physician. ec2 10:34 Triage completed. iw 10:35 Arm band placed on. iw 10:42 Kristy Marquis, RN is Primary Nurse. kc6 10:45 Patient has correct armband on for positive identification. Bed in low position. Call kc6 light in reach. Pulse ox on. NIBP on. Door closed. Noise minimized. Lights dimmed. Pillow given. 10:45 Patient maintains SpO2 saturation greater than 95% on room air. kc6 12:17 No provider procedures requiring assistance completed. Patient did not have IV access kc6 during this emergency room visit. Administered Medications: No medications were administered Medication: 12:18 VIS not applicable for this client. kc6 Outcome: 11:59 Discharge ordered by . ec2 12:18 Discharged to home ambulatory, kc6 12:18 Condition: good 12:18 Discharge instructions given to patient, Instructed on discharge instructions, follow up and referral plans. medication usage, Demonstrated understanding of instructions, follow-up care, medications, Prescriptions given X 1, 12:18 Patient left the ED. kc6 Signatures: Demetria Cabrera, RN Kristy Garcia RN RN kc6 Nikolay Nicolas MD MD ec2
--- NOTE | 2024-10-17 12:00 | EDPHYS ---
Physician Documentation [facility] Name: Artem Pena Age: 64 yrs Sex: Male : 1960 Arrival Date: 10/17/2024 Time: 10:12 Bed 14 Private MD: ED Physician Nikolay Nicolas HPI: 10/17 10:44 This 64 yrs old Male presents to ER via Ambulatory with complaints of Flu ec2 Symptoms. 10:44 Patient arrives today for evaluation of upper respiratory symptoms. Patient reports ec2 that he has been having cough and cold symptoms ongoing for couple of days. Was at wound care and was told to come to the ED as he is having flulike symptoms. Patient reports some bodyaches as well. Denies any other concerns. Reports no issues with p.o. intake. Has sick contact with similar symptoms. Historical: - Allergies: 10:34 Latex; iw 10:34 Lisinopril; iw 10:34 metformin; iw 10:34 Snmmvzv-Uvf-Zxc Reductase Inhibitors; iw - PMHx: 10:34 Congestive heart failure; diabetes mellitus; Hypertension; iw - PSHx: 10:34 Coronary artery bypass graft; iw - Immunization history:: Adult Immunizations up to date. - Infectious Disease History:: Denies. - Social history:: Smoking status: Patient denies any tobacco usage or history of. ROS: 10:44 Constitutional: as per hpi ec2 Exam: 10:44 Constitutional: GEN: NAD Head: atraumatic Eyes: EOMI Ears: External ears are ec2 normal. CV: regular rate LUNGS: no respiratory distress, no wheezes or rales or rhonchi ABD: non-distended SKIN: no evidence of rashes MSK: no evidence of trauma Vital Signs: 10:33 BP 132 / 79; Pulse 75; Resp 16; Temp 98.2; Pulse Ox 98% on R/A; iw 12:17 BP 148 / 75; Pulse 76; Resp 16 S; Pulse Ox 100% on R/A; kc6 MDM: 10:33 Medical Screening Exam initiated ec2 10:44 Data reviewed: vital signs, nurses notes. ED course: Patient arrives today for upper ec2 respiratory symptoms. Examination is revealing for well-appearing nontoxic hemodynamically stable with reassuring cardiopulmonary examination. Will obtain viral swabs, suspect viral infection, doubt pneumonia given lack of focal lung sounds. Accordingly we will forego chest x-ray. Additionally doubt other process such as CHS given descriptor of symptoms.. 11:59 ED course: Viral swabs negative. Suspect viral infection. Will discharge home. Return ec2 precautions given.. 12:10 ED course: Patient asked regarding possible lab work, patient is hemodynamically stable ec2 without concerning symptoms with a reassuring examination without focal evidence of infection, this would not be management changing, leukocytosis would not indicate anything, doubt anemia or dehydration, doubt electrolyte disturbance given normal p.o. intake otherwise.. 12 10:36 Order name: Influenza Screen (a \T\ B); Complete Time: 11:47 ec2 10/17 10:36 Order name: SARS RAPID; Complete Time: 11:47 ec2 Administered Medications: No medications were administered Disposition Summary: 10/17/24 11:59 Discharge Ordered Notes: Location: Home ec2 Condition: Stable ec2 Diagnosis - Viral infection, unspecified ec2 Followup: ec2 - With: Private Physician - When: - Reason: Re-evaluation by your physician Discharge Instructions: - Discharge Summary Sheet ec2 - Viral Respiratory Infection ec2 Forms: - Medication Reconciliation Form ec2 - Antibiotic Education ec2 - Prescription Opioid Use ec2 - Patient Portal Instructions ec2 - Leadership Thank You Letter ec2 Prescriptions: - albuterol sulfate 90 mcg/actuation Inhalation HFA Aerosol Inhaler - inhale 2 puff INHALATION route every 2 to 3 hours as needed for bronchospasm; ec2 administer via ventilator; 1 unit; Refills: 0, Product Selection Permitted Signatures: Dispatcher [employer] Demetria Macias RN RN iw Corral, Edwin, MD MD ec2 Corrections: (The following items were deleted from the chart) 10:37 10:37 Influenza Screen (A \T\ B)+BA.LAB.BRZ ordered. [facility] EDMS 10:37 10:37 SARS-COV-2 Antigen Rapid+I.LAB.BRZ ordered. [facility] 10:45 10:44 Patient arrives today for evaluation of upper respiratory symptoms. Patient ec2 reports that he has been having cough and cold symptoms ongoing for couple of days. Was at wound care and was told to come to the ED as he is having flulike symptoms. Denies any other concerns. Reports no issues with p.o. intake. Has sick contact with similar symptoms. ec2
[2024-10-17 12:42] VITALS: TEMP 98.2
[2024-10-17 12:43] VITALS: BP 148/75; O2SAT 100
== END 2024-10-17 12:18 | disposition home or self-care (01) ==
LOC: ER 10:12
DX: B34.9 Viral infection, unspecified (principal); Z11.52 Encounter for screening for COVID-19; E11.9 Type 2 diabetes mellitus without complications; I10 Essential (primary) hypertension; I50.9 Heart failure, unspecified; Z95.1 Presence of aortocoronary bypass graft
CPT/HCPCS: 36415; 87804; 87811; 99283

== ENCOUNTER 2024-10-21 07:52 | Inpatient (IN) | payer OTHER, BC ==
[2024-10-20 14:06] LABS: Absolute Basophils 0.1 K/uL (0-0.5); Absolute Eosinophils 0.1 K/uL (0-0.5); Absolute Lymphocytes (CBC) 1.7 K/uL (0.7-4.9); Absolute Monocytes 1.1 K/uL (0.1-1.3); Absolute Neutrophil 7.9 K/uL (1.8-8.0); Basophils % 0.6 % (0-1.3); Hematocrit 40.3 % (39.6-49.0); Hemoglobin 13.4 g/dL (13.6-17.9); Lymphocytes % 15.4 % (15.3-44.8); MCH 31.1 pg (27.0-35.0); MCHC 33.4 g/dL (32.0-36.0); MPV 9.3 fL (7.6-11.3); Nucleated Red Blood Cells % 0.4 % (0-0); Platelets 251 thou/uL (152-406); RBC Red Blood Cell Count 4.33 M/uL (4.33-5.43); Red Cell Distribution Width 12.9 % (12.1-15.2)
[2024-10-20 14:17] LABS: Anion Gap 9.4 mEq/L (5.0-15.0); Potassium 3.4 mEq/L (3.5-5.1)
--- NOTE | 2024-10-20 17:16 | RAD REPORT ---
EXAMINATION: ONE VIEW CHEST XR CLINICAL INDICATION: Male, 64 years old.,preop SDS at desk. History of cardiac bypass TECHNIQUE: Frontal chest projection is submitted. Examination is limited by patient positioning and t echnique. COMPARISON: 10/07/2024 FINDINGS: Interval change of the position of the left arm PICC, now directed cranially along the right brachioc ephalic vein or distal internal jugular vein. The lungs are well inflated and clear. No pneumothorax or sizable effusion. The heart is normal in size. Mediastinal contours are unchanged, wi th sequelae of CABG and left atrial appendage occlusion. IMPRESSION: No acute intrathoracic abnormalities. Interval change of the position of the left arm PICC, with tip now projecting along the right brachio cephalic vein or distal internal jugular vein.
[2024-10-21] MEDS: COLLAGENASE 30 GM OINTMENT TOP ONE (08:01)
[2024-10-21] MEDS: BUPIVACAINE 0.5% PF 10 ML VIAL ONE (08:01)
[2024-10-21] MEDS: NA CHLORIDE 0.9% 1,000 ML ONE (08:10)
[2024-10-21] MEDS ORDERED: propofoL 200 MG/20 ML VIAL IV ONE (08:11)
[2024-10-21] MEDS ORDERED: LIDOCAINE 2% MPF 5 ML VIAL ONE (08:11)
[2024-10-21] MEDS: CEFAZOLIN SODIUM 2 GM/VIAL ONE (08:11)
[2024-10-21] MEDS ORDERED: FENTANYL CITR 100 MCG/2 ML ONE (08:11)
[2024-10-21] MEDS ORDERED: ONDANSETRON 4 MG/2 ML VIAL ONE (08:11)
[2024-10-21] MEDS ORDERED: MIDAZOLAM HCL 2 MG/2 ML INJ ONE (08:14)
[2024-10-21] MEDS ORDERED: ZOLPIDEM TARTRATE 5 MG TABLET PO PRN (09:38)
[2024-10-21] MEDS ORDERED: ONDANSETRON 4 MG/2 ML VIAL IV PRN (09:38)
--- NOTE | 2024-10-21 09:38 | P.OP ---
Date of Service: 10/21/24 Preop diagnosis: Left foot osteomyelitis with infected wound and vascular compromise of the fifth toe Postop diagnosis: Same Procedure performed: Left fifth toe transmetatarsal amputation Surgeon: Hardik Barron MD [employer] Driver: Micaela KARIMI Estimated blood loss: Minimal Specimen: Left fifth toe, infected wound and culture and sensitivity of pus Findings: As above Anesthesia: General Complications: None Drains: None Fluids and blood products: Nonapplicable Disposition: Recovery room Operative note: Patient brought to the OR and placed in supine position. General anesthesia began. Patient prepped and draped in usual sterile fashion. Marcaine 0.5% infiltrated locally. Sharp dissection proceeded at the webspace o f the fifth toe and proximally towards the distal foot including the previous wound that was present on the lateral aspect of the foot. Bleeding controlled cautery. Subcutaneous tissue divided with cautery. Fifth metatarsal bone identified and bone cutters used to divided. Rongeur and rasp used as needed. Entire toe and infected wound sent to pathology as specimen. Cultures done. Wound irrigated and bleeding controlled cautery. Santyl wet-to-dry normal saline dressing change applied. Patient tolerated procedure in stable condition taken to recovery room in good general condition. CC:
[2024-10-21 11:26] VITALS: BMI 34.8
[2024-10-21] MEDS: VANCOMYCIN 2.75 GM in NA CHLORIDE 0.9% 500 ML IVPB SCH (11:40)
--- NOTE | 2024-10-21 12:10 | P.CNS ---
Date of Consult: 10/21/24 Reason for Consult: Medical management of chronic conditions Requesting Physician: Hardik Barron Primary Care Provider: Dr. Young Chief Complaint: Left fifth phalange and transmetatarsal amputation History of Present Illness: Mr. Pena was sent to Dr. Barron for management of a diabetic left foot. He was set up with a PICC line and IV antibiotics (vancomycin) but his foot continued to worsen. Today he underwent a left fifth digit and fifth transmetatarsal amputation. The plan is for continuation of IV vancomycin with the addition of Merrem while following cultures. The hospitalist program was consulted for medical management of his other comorbidities. Allergies latex Allergy (Verified 10/21/24 10:04) Hives/Rash lisinopril Allergy (Verified 10/21/24 10:04) Shortness of breath metformin Allergy (Verified 10/21/24 10:04) Nausea/Vomiting Home medications list reviewed: Yes Home Medications: Losartan/Hydrochlorothiazide [Losartan-Hctz 100-25 mg Tab] 1 tab PO DAILY 01/23/17 Metoprolol Succinate [Toprol Xl*] 50 mg PO DAILY 01/23/17 Acetaminophen with Codeine [Tylenol with Codeine #4 Tablet] 1 each PO Q4HP PRN # 40 tablet 01/27/17 Amiodarone HCl [Pacerone] 200 mg PO DAILY 10/20/24 Empagliflozin [Jardiance] 25 mg PO DAILY 10/20/24 Furosemide 40 mg PO DAILY 10/20/24 Insulin Regular, Human [Novolin R Flexpen] 100 units SQ PRN 10/20/24 Tirzepatide [Mounjaro] 15 mg SQ EVERY 7TH DAY 10/20/24 Vancomycin [Vancocin*] 2.75 gm IV DAILY 10/20/24 - Past Medical/Surgical History Diabetic: Yes -: HTN -: DM -: CAD s/p KS and single vessel bypass graft -: Cataracts -: ESRD -: CHF -: R Foot Michael's Fx -: Appe -: R Shoulder Tear Repair -: CABG -: Bilateral cataracts Psychosocial/ Personal History: Lives at home with his . - Social History Smoking Status: Never smoker, Unknown if ever smoked Alcohol use: No CD- Drugs: No Caffeine use: No Place of Residence: Home Review of Systems 10-point ROS is otherwise unremarkable General: Unremarkable Eyes: Unremarkable ENT: Unremarkable Respiratory: Unremarkable Cardiovascular: Unremarkable Gastrointestinal: Unremarkable Genitourinary: Unremarkable Musculoskeletal: As per HPI Integumentary: As per HPI Neurological: Unremarkable Lymphatics: Unremarkable Physical Examination Temp Pulse Resp BP Pulse Ox 97.6 F 77 18 155/75 H 10/21/24 10:38 10/21/24 10:38 10/21/24 10:38 10/21/24 10:38 General: Alert, In no apparent distress, Oriented x3 HEENT: Atraumatic, Normocephalic Neck: Supple Respiratory: Normal air movement Cardiovascular: No edema, Regular rate/rhythm, Abnormal S1 S2, Systolic murmur Capillary refill: <2 Seconds Gastrointestinal: Normal bowel sounds, Soft and benign Musculoskeletal: No clubbing, Other (Postsurgical dressing to left lower extremity) Integumentary: No rashes Neurological: Normal speech, Normal tone, Normal affect Lymphatics: No axilla or inguinal lymphadenopathy External genitalia: Deferred Rectal: Deferred Laboratory Data (last 24 hrs) 10/20/24 10/20/24 12:59 12:59 WBC 10.80 Hgb 13.4 L Hct 40.3 Plt Count 251 Sodium 138 Potassium 3.4 L BUN 15 Creatinine 0.82 Glucose 121 H Conclusions/Impression: Operative day for left fifth toe and transmetatarsal amputation Continue left upper arm PICC line Vancomycin as scheduled Merrem as scheduled Follow cultures Pain control PT eval Hypertension Monitor and trend Patient allergic to lisinopril Continue amiodarone 200 mg p.o. daily Metoprolol 50 mg p.o. daily Losartan HCTZ (100/25) 1 p.o. daily CHF with unknown EF IVF off Continue Lasix 40 mg p.o. daily SCDs Out of bed 3 times daily with assist Diabetes Patient home schedule is Basaglar 30 units subcu daily, Mounjaro, Jardiance, and NovoLog sliding scale Normal blood sugar ranges per CGM 112 to 140 mg/dL Discussed medications not on formulary and to bring home meds if he desires Fingerstick blood glucose monitoring before meals and at bedtime Basaglar 30 units subcu daily Sliding scale insulin mild coverage Visit to ED with URI Status post surgery continue every 4 to 6 neb treatments Incentive spirometery VTE/GI prophylaxis
[2024-10-21] MEDS ORDERED: SODIUM CHLORIDE 0.9% 10ML INJ IV PRN (12:35)
[2024-10-21] MEDS: IPRATROPIUM BROM 0.5MG/2.5ML NEB SCH (13:00)
[2024-10-21] MEDS: HYDROMORPHONE HCL 1 MG/ML INJ IV PRN (15:40)
[2024-10-21] MEDS: INSULIN REGULAR (HUMAN) 100 UNIT/ML SQ SCH (16:04)
[2024-10-21] MEDS: Meropenem 1,000 MG in NA CHLORIDE 0.9% 100 ML IV SCH (20:04)
[2024-10-21] MEDS: ACETAMINOPHEN 325 MG TABLET PO PRN (20:16)
[2024-10-21] MEDS: ARFORMOTEROL TARTRATE 15 MCG/2 ML VIAL.NEB NEB SCH (20:24)
[2024-10-21] MEDS: NA CHLORIDE 0.9% 1,000 ML IV SCH (21:02)
[2024-10-22 05:49] LABS: Absolute Basophils 0.1 K/uL (0-0.5); Absolute Lymphocytes (CBC) 1.4 K/uL (0.7-4.9); Absolute Monocytes 0.8 K/uL (0.1-1.3); Absolute Neutrophil 7.7 K/uL (1.8-8.0); Basophils % 0.7 % (0-1.3); Eosinophils % 0.3 % (0-4.4); Hematocrit 36.1 % (39.6-49.0); Hemoglobin 12.3 g/dL (13.6-17.9); Lymphocytes % 14.2 % (15.3-44.8); MCH 31.4 pg (27.0-35.0); MCV 92.3 fL (80-100); MPV 8.2 fL (7.6-11.3); Neutrophils % 76.8 % (41.7-73.7); Platelets 273 thou/uL (152-406); RBC Red Blood Cell Count 3.91 M/uL (4.33-5.43); Red Cell Distribution Width 12.8 % (12.1-15.2)
[2024-10-22 06:12] LABS: Anion Gap 7.2 mEq/L (5.0-15.0); Magnesium 2.2 mg/dL (1.6-2.4); Phosphorus 2.6 mg/dL (2.5-4.9); Potassium 3.2 mEq/L (3.5-5.1)
[2024-10-22 08:39] VITALS: O2SAT 95
[2024-10-22] MEDS ORDERED: ALBUTEROL INHALER 200 PUFF/6.7 GM IH PRN (08:50)
[2024-10-22] MEDS: PANTOPRAZOLE 40 MG INJ IVP SCH (08:52)
[2024-10-22] MEDS: LOSARTAN/HCTZ 50-12.5 PO SCH (08:52)
[2024-10-22] MEDS: FUROSEMIDE 40 MG TABLET PO SCH (08:53)
[2024-10-22] MEDS: POTASSIUM CL SA 10 MEQ TAB PO ONE ×2 (08:54→20:44)
[2024-10-22] MEDS: INSULIN GLARGINE 100 UNIT/ML SQ SCH (08:55)
--- NOTE | 2024-10-22 09:43 | PN ---
Date of Progress Note: 10/22/2024 Subjective: The patient is awake, alert. No complaint. Vitals stable, afebrile. Laboratory data r eviewed. Wound is clean with minimal fibrin present. There is decreased erythema and warmth and forest ma. Assessment: Status post left fifth toe transmetatarsal amputation. Recommendations: Continue IV antibiotics. Check cultures and adjust antibiotics accordingly. Disch arge planning in place. Wound care as ordered. /MODL Voice ID: [id number] Report ID: [id number]
[2024-10-22] MEDS: AMIODARONE HCL 200 MG TAB PO SCH (12:44)
[2024-10-22] MEDS: ENOXAPARIN 40 MG/0.4 ML SQ SCH (12:45)
[2024-10-22] MEDS: HYDROCODONE/APAP 7.5/325 MG TAB PO PRN (12:51)
--- NOTE | 2024-10-22 19:21 | P.PN ---
Subjective Date of Service: 10/22/24 Primary Care Provider: Dr. Young Chief Complaint: Left fifth phalange and transmetatarsal amputation Admitted with infection of the diabetic foot, treated with IV vancomycin, meropenem, status post transmetatarsal amputation of the left foot, pain control as needed analgesics Review of Systems 10-point ROS is otherwise unremarkable General: As per HPI Physical Examination - Vital Signs Temperature: 97.5 F Blood Pressure: 154/72 Pulse: 73 Respirations: 16 Pulse Ox (%): 95 - Physical Exam General: Alert, In no apparent distress, Oriented x3 HEENT: Atraumatic, Normocephalic Neck: Supple, 2+ carotid pulse no bruit Respiratory: Clear to auscultation bilaterally, Normal air movement Cardiovascular: No edema, Normal pulses, Regular rate/rhythm Capillary refill: <2 Seconds Gastrointestinal: Normal bowel sounds, Soft and benign Musculoskeletal: No tenderness, No warmth Integumentary: Other (Left foot surgical dressing with Conrado wrap dry and intact) Neurological: Normal speech, Normal strength at 5/5 x4 extr, Sensation intact, Cranial nerves 3-12 intact - Studies Laboratory Data (last 24 hrs) 10/22/24 10/22/24 10/22/24 16:15 05:31 05:31 WBC 10.00 Hgb 12.3 L Hct 36.1 L Plt Count 273 Sodium 137 Potassium 3.5 3.2 L BUN 17 Creatinine 0.86 Glucose 167 H Phosphorus 2.6 Magnesium 2.2 Assessment And Plan - Current Problems (Diagnosis) (1) Diabetic ulcer of left foot Current Visit: Yes Status: Acute (2) Status post transmetatarsal amputation of left foot Current Visit: Yes Status: Acute (3) Diabetes mellitus Onset Date: 01/26/17 Current Visit: No Status: Acute Qualifiers: Diabetes mellitus type: type 2 Diabetes mellitus 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 term 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 insulin use: without senior care use Diabetes mellitus complication detail: with other skin ulcer - Plan Assessment Patient was seen as a consult for surgery Wound care, per surgery, PT eval to evaluate for DME needs, educate on fall precaution PICC line for IV antibiotics after discharge IV antibiotics, as needed analgesics, Trend cultures, Resume home insulin Follow-up with surgery after discharge Diabetic diet Full code DVT SCDs Disposition Home with IV antibiotics with home health after discharge Discharge Plan: Home - Code Status/Comfort Care Code Status: Full Code Critical Care: No Time Spent Managing PTS Care (In Minutes): 35
[2024-10-23 05:38] LABS: Albumin 2.2 g/dL (3.4-5.0); Anion Gap 8.4 mEq/L (5.0-15.0); Magnesium 2.2 mg/dL (1.6-2.4); Phosphorus 2.6 mg/dL (2.5-4.9); Potassium 3.4 mEq/L (3.5-5.1)
[2024-10-23] MEDS: POTASSIUM 25 MEQ EFFERV TAB PO ONE (10:04)
--- NOTE | 2024-10-23 10:27 | PN ---
Date of Progress Note: 10/23/2024 Subjective: The patient is awake, alert. Had some body aches earlier, which had since resolved. No fever. No chills. No purulent discharge. Review of Systems: Otherwise unremarkable. Physical Examination: Vital Signs: Stable, afebrile. Wound: There are less swelling and redness around the wound. There is minimal fibrin present in the wound. There is no purulence. There is no warmth and there is no tenderness. Cultures reviewed. The patient is growing Proteus vulgaris in one of the bottles and is sensitive to meropenem. Assessment: Status post left fifth toe transmetatarsal amputation. Recommendations: Continue IV antibiotics. We will check final cultures and then the patient will be discharged to home once the infection is under control. We will start wound VAC on the patient. e patient is clinically stable and doing well. /MODL Voice ID: [id number] Report ID: [id number]
--- NOTE | 2024-10-23 10:36 | P.PN ---
Date of Service: 10/23/24 Subjective feeling good this am. Review of Systems 10-point ROS is otherwise unremarkable General: Unremarkable Eyes: Unremarkable ENT: Unremarkable Respiratory: Unremarkable Cardiovascular: Unremarkable Gastrointestinal: Unremarkable Genitourinary: Unremarkable Musculoskeletal: As per HPI Integumentary: As per HPI Neurological: Unremarkable Lymphatics: Unremarkable Physical Examination Temp Pulse Resp BP Pulse Ox 97.6 F 77 18 155/75 H 10/21/24 10:38 10/21/24 10:38 10/21/24 10:38 10/21/24 10:38 Vital signs for 10/23/24 reviewed General: Alert, In no apparent distress, Oriented x3 HEENT: Atraumatic, Normocephalic Neck: Supple Respiratory: Normal air movement Cardiovascular: No edema, Regular rate/rhythm, Abnormal S1 S2, Systolic murmur Capillary refill: <2 Seconds Gastrointestinal: Normal bowel sounds, Soft and benign Musculoskeletal: No clubbing, dressing to left lower extremity dry and intact Integumentary: No rashes Neurological: Normal speech, Normal tone, Normal affect Lymphatics: No axilla or inguinal lymphadenopathy External genitalia: Deferred Rectal: Deferred Laboratory Data (last 24 hrs) 10/20/24 10/20/24 12:59 12:59 WBC 10.80 Hgb 13.4 L Hct 40.3 Plt Count 251 Sodium 138 Potassium 3.4 L BUN 15 Creatinine 0.82 Glucose 121 H Conclusions/Impression: Operative day for left fifth toe and transmetatarsal amputation (10/21/24) Continue left upper arm PICC line Vancomycin as scheduled Merrem as scheduled Follow cultures Pain control PT eval Hypertension Monitor and trend Patient allergic to lisinopril Continue amiodarone 200 mg p.o. daily Metoprolol 50 mg p.o. daily Losartan HCTZ (100/25) 1 p.o. daily CHF with unknown EF IVF off Continue Lasix 40 mg p.o. daily SCDs Out of bed 3 times daily with assist Diabetes Patient home schedule is Basaglar 30 units subcu daily, Jerome Will, and NovoLog sliding scale Normal blood sugar ranges per CGM 112 to 140 mg/dL Discussed medications not on formulary and to bring home meds if he desires Fingerstick blood glucose monitoring before meals and at bedtime Basaglar 30 units subcu daily Sliding scale insulin mild coverage Visit to ED with URI Status post surgery continue every 4 to 6 neb treatments Incentive spirometery POD #2 (10/23/24) wound to left great toe a dry ulceration, dressing dry and intact to amputation area, pedal pulse strong and regular Pt is without complaint Tissue culture + 4 gram negative rods resulted yesterday 10/22/24. Vancomycin cancelled. Merrem continued Return of culture and sensitivity for Proteus Vulgaris - sensitive to Levaquin. As PICC has backed out to distal IJ, will remove and change IV abx to Levaquin. Will switch to po Levaquin on discharge. VTE/GI prophylaxis <Monika Coronado - Last Filed: 10/23/24 10:29> Operative wound culture result reviewed, I will discontinue IV vancomycin and switch to oral quinolone. Optimized glycemic control, well-managed postoperative pain. <WOOD Pettit - Last Filed: 10/23/24 11:12>
[2024-10-23] MEDS: CIPROFLOXACIN 400 MG/200 ML IVPB IV SCH (11:00)
[2024-10-23] MEDS: Levofloxacin500mg IV 500 MG/100 ML BAG IV SCH (11:00)
[2024-10-23] MEDS: VANCOMYCIN 2.75 GM in NA CHLORIDE 0.9% 500 ML IVPB SCH (12:53)
[2024-10-24 05:49] LABS: Albumin 2.5 g/dL (3.4-5.0); Anion Gap 5.8 mEq/L (5.0-15.0); Magnesium 2.1 mg/dL (1.6-2.4); Phosphorus 2.9 mg/dL (2.5-4.9); Potassium 3.8 mEq/L (3.5-5.1)
--- OUTSIDE RECORDS SUMMARY | 2024-10-24 07:57 | XMS REPORT | Continuity of Care Document ---
Author Name Unknown Address [address] [place] [address] [facility] thconnect Address [address] [place] [address] Care Team Providers Care Punchboard Stuffer Name Role Phone Hannah Muñoz MD, Carlos Aguirre Primary Care [facility] KJ LOPEZ Attending Clinician Unavailable MOI ESTRADA Attending Clinician Unavailable MOI ESTRADA Attending Clinician MK Martines Attending Clinician UnavailKJ Daniel Attending Clinician Unavailable Collin Attending Clinician Unavailable Paulette Harris MA Attending Clinician AIMEE Wood Attending Clinician Unanikki Barrow RNFany Attending Clinician Unavailab le Doctor Unassigned, [place] Attending Clinician U JUAREZ Carbajal Attending Clinician RAEANN Howe Attending Clinician Rivas Gao MD, Juarez Vásquez Attending Clinician + Alfie LEACH Huyaudra Tse Attending Clinician Draw, [facility] Lab Attending Clinician Rivas Crouch HEAT TREAT TECHNICIAN, Blaise Guillen Attending Clinician [phone] BLAISE CROUCH Attending Clinician Rivas Stephens RN, Cristina Sheridan Attending Clinician [phone] Petrona Padilla Attending Clinician [phone] Aracely KNAPP, Maya Attending Clinician [phone] Jeramy BE, Elisabet Rinaldi Attending Clinician [phone] Jack ASENCIO, Oleksandr Braswell Attending Clinici an Collin Admitting Clinician Unavailable AIMEE MCGOWAN Admitting Clinician Unanikki Estrada MD, Moi Admitting Clinician [phone] Jack ASENCIO, Oleksandr Braswell Admitting Clinici an Payers Payer Name Policy Type Policy Number Effective Date Expirati on Date Source [facility] [id number] 2021 00:00:00 2024 00:00:00 OTHER CI [id number] [place] [employer] [id number] 2023 00:00:00 [place] [id number] 2023 00:00:00 JEROME REYNOLDS FROM [facility] [id number] Problems Condition Name Condition Details Condition Category [...] of Prostate Problem Active 6-03 00:00: 00 [facility] Secondary polycythem ia Secondary Polycythem ia Problem Active 6- 00:00: 00 [facility] Hypernatre keenan Hypernatre keenan Problem Active 6 00:00: 00 [facility] Morbid obesity Morbid Obesity Problem Active 07-25 00:00: 00 [facility] 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 Due to Type 2 Diabetes Mellitus Problem Active 07-25 00:00: 00 [facility] Bilateral cataracts Bilateral Cataracts Problem Active 3-04 00:00: 00 [facility] Long-term current use of insulin Long-term Current Use of Insulin Problem Active 3-04 00:00: 00 [facility] 5 MONTH FOLLOW UP 5 MONTH FOLLOW UP Active 12/27/2021 [facility] Diagnosis Active 2-11 00:00: 00 2022-07-18 16:05:00 [place] I25.10 ECHO COMPLETE I25.10 ECHO COMPLETE Active 09/10/2021 [facility] Diagnosis Active 2020-11 0-26 00:00: 00 2021-12-04 08:34:00 [place] Sant[place] 3 MONTHS FOLLOW UP/ECHO 3 MONTHS FOLLOW UP/ECHO Active 08/29/2021 [facility] Diagnosis Active 2020-11 0-14 00:00: 00 2021-12-27 10:07:00 [place] P22.0 - RESPIRATOR Y DISTRESS SYNDROME P22.0 - RESPIRATOR Y DISTRESS SYNDROME Active 07/23/2021 [facility] Diagnosis Active 9 00:01: 00 2021-07-23 14:01:00 [place] SOB SOB Active 07/16/2021 [facility] Active 07-16 00:00: 00 2021 15:20:00 [place] Sant[place] N/A N/A Active 07/16/2021 [facility] Diagnosis Active 07-16 00:00: 00 2021-07-28 12:53:00 [place] Sant[place] Aspartate aminotrans ferase serum level above reference range Aspartate Aminotrans ferase Serum Level above Reference Range Problem Active 06-23 00:00: 00 [facility] I25.10 - ATHSCL HEART DISEASE OF [place] I25.10 - ATHSCL HEART DISEASE OF [place] Active 06/19/2021 [facility] Diagnosis Active 8 00:01: 00 2021-06-26 13:26:00 [place] I25.10 I25.10 Active 06/19/2021 [facility] Diagnosis Active 06-19 00:00: 00 2021-06-21 09:32:00 [place] Foot callus Foot Callus Problem Active 8 00:00: 00 [facility] Body mass index 40+ - severely obese Body Mass Index 40+ - Severely Obese Problem Active 06-18 00:00: 00 [facility] Atheroscle rosis of coronary artery without angina pectoris Atheroscle rosis of Coronary Artery without Angina Pectoris Problem Active 8 00:00: 00 [facility] Type 2 diabetes mellitus Type 2 Diabetes Mellitus Problem Active 8 00:00: 00 [facility] Hyperlipid emia Hyperlipid emia Problem Active 8 00:00: 00 [facility] Hypertensi ve disorder Hypertensi ve Disorder Problem Active 8 00:00: 00 [facility] Atrial fibrillati on Atrial Fibrillati on Problem Active 8 00:00: 00 [facility] Longstandi ng persistent atrial fibrillati on Longstandi ng persistent atrial fibrillati on Disease Active 06-05 00:00: 00 [facility] Anticoagul ation management encounter Anticoagul ation management encounter Disease Active 06-05 00:00: 00 [facility] Coronary artery disease involving [place] heart without angina pectoris Coronary artery disease involving [place] heart without angina pectoris Disease Active 06-05 00:00: 00 [facility] Obstructiv e sleep apnea Obstructiv e sleep apnea Disease Active 06-05 00:00: 00 [facility] Essential hypertensi on Essential hypertensi on Disease Active 06-05 00:00: 00 [facility] R07.9,I25. 10,I25.10, I50.22 R07.9,I25. 10,I25.10, I50.22 Active 05/29/2021 [place] Diagnosis Active 05-29 00:00: 00 2021-06-05 10:50:00 [place] 6WK FOLLOW UP 6WK FOLLOW UP Active 05/23/2021 [facility] Diagnosis Active 05-23 00:00: 00 2021-08-29 14:00:00 [place] NSTEMI (non-ST elevated myocardial infarction ) NSTEMI (non-ST elevated myocardial infarction ) Disease Active 05-23 00:00: 00 [facility] Acute congestive heart failure Acute congestive heart failure Disease Active 05-23 00:00: 00 [facility] New onset atrial fibrillati on New onset atrial fibrillati on Disease Active 05-23 00:00: 00 [facility] I50.22 I25.10 I48.91 I50.22 I25.10 I48.91 Active 05/08/2021 [facility] Diagnosis Active 05-08 00:00: 00 2021-05-22 08:25:00 [place] I25.10,I50 .22,I48.91 I25.10,I50 .22,I48.91 Active 04/02/2021 [place] Diagnosis Active 04-02 00:00: 00 2021-04-18 07:40:00 [place] Santana 2 MO F/U 2 MO F/U Active 03/22/2021 [facility] Diagnosis Active 03-22 00:00: 00 2021-05-23 10:08:00 [place] NEW PT/DR. ROSITA POLO FT/CHF/UNS PE NEW PT/DR. ROSITA POLO FT/CHF/UNS PE Active 03/04/2021 [facility] Diagnosis Active 4-19 00:00: 00 2021-03-22 10:48:00 [place] Santana Morbid obesity with body mass index of 40.0-49.9 Morbid obesity with body mass index of 40.0-49.9 Disease Active 2019-11 00:00: 00 [facility] Class 3 severe obesity due to excess calories with body mass index (BMI) of 40.0 to 44.9 in adult Class 3 severe obesity due to excess calories with body mass index (BMI) of 40.0 to 44.9 in adult Disease Active 2019-11 00:00: 00 [facility] Chest pain Chest pain Disease Active 2019-11 00:00: 00 [facility] Congestive heart failure (disorder) Congestive heart failure (disorder) Resolved Problem 12/29/2021 [facility], Cammy Alcantar, [facility], [place] Problem Resolve d 2021-12-29 23:48:14 [place] ATHSCL HEART DISEASE OF [place] CORONARY ATHSCL HEART DISEASE OF [place] CORONARY Active [facility] Diagnosis Active 2021-07-28 12:53:00 [place] Santana Z95.1 - PRESENCE OF AORTOCORON NAVNEET BYPA Z95.1 - PRESENCE OF AORTOCORON NAVNEET BYPA Active Cammy Alcantar [facility] Diagnosis Active 2021-12-23 13:15:00 [place] Sant[place] Allergies, Adverse Reactions, Alerts Allergy Name Allergy Type Status Severity Reaction(s) Onset Date Inactive Date Treating Clinician Comments Source Lisinopr il Allergy to substanc e Active 2023-11 00:00: 00 [place] Santana Epic Metformi n Allergy to substanc e Active 2023-11 00:00: 00 [place] Sant[place] Epic Rosuvast atin Allergy to substanc e Active 2023-11 0 00:00: 00 [place] Santana Epic Metformi n Propensi ty to adverse reaction s Active Nausea and/or Vomiting 2019-11 00:00: 00 [facility] METFORMI N DRUG INGREDI Active N/V 2019-11 00:00: 00 [facility] Metformi n Allergy to substanc e Active Nausea And Vomiting 2019-11 00:00: 00 [facility] Lisinopr il Propensi ty to adverse reaction s Active Cough 2019-11 00:00: 00 [facility] LISINOPR IL DRUG INGREDI Active COUGH 2019-11 00:00: 00 [facility] NO KNOWN ALLERGIE S Drug Class Active [facility] Lisinopr il Allergy to substanc e Active [facility] Trulicit y Allergy to substanc e Active Nausea, Vomiting [facility] Social History Social Habit Start Date Stop Date Quantity Comments Source Gender identity 2024-02-06 15:56:21 Identifies as male gender (finding) [facility] Sexual orientation M emojae Santana [facility] Exposure to SARS-CoV-2 (event) Not sure [facility] History of Social function 2024-03-08 00:00:00 2024-03-08 00:00:00 [facility] Alcoholic beverage intake 2021-12-17 00:00:00 2021-12-17 00:00:00 Ex-drinker (finding) [facility] Alcohol intake 2021-08-08 00:00:00 2021-08-08 00:00:00 Ex-drinker (finding) [facility] Social History 2021-05-23 15:18:29 2021-05-23 15:18:29 [facility] Tobacco use and exposure 2021-05-23 00:00:00 2021-05-23 00:00:00 Smokeless tobacco non-user [facility] Sex Assigned At 1960 00:00:00 1960 00:00:00 [facility] Smoking Status Start Date Stop Date Source Never smoked tobacco Tex Swenson Tobacco smoking consumption unknown [facility] Medications Ordered Medication Name Filled Medication Name Start Date Stop Date Current Medication? Ordering Clinician Indication Dosage Frequency Signature (SIG) Comments Components Source amiodarone (Pacerone) 200 MG tablet amiodarone (Pacerone) 200 MG tablet 2023-11 00:00: 00 04-04 23:59 :00 No 200mg QD Take 1 tablet by mouth 1 time each day. Tex Swenson furosemide (Lasix) 40 MG tablet furosemide (Lasix) [...] each day. Do not crush or chew. Halishyla pearl Max Epic losartan (Cozaar) 25 MG tablet losartan (Cozaar) 25 MG tablet 2023-11 00:00: 00 04-04 23:59 :00 No 12.5mg QD Take 0.5 tablets by mouth 1 time each day. Tex Santana Epic amiodarone (Pacerone) 200 MG tablet amiodarone (Pacerone) 200 MG tablet 5-10 00:00: 00 10-06 00:00 :00 No = 1 tab, PO, Daily, # 90 tab, 3 Refill(s), Pharmacy: [facility], 193.04, cm, 03/08/24 16:57:00 CDT, Height, 131.227, kg, 03/08/24 16:57:00 CDT, Weight Halishyla pearl Max Epic losartan (Cozaar) 25 MG tablet losartan (Cozaar) 25 MG tablet 4-23 00:00: 00 Yes 25mg 25 mg. Tex kang Max Epic amiodarone (Pacerone) 200 MG tablet amiodarone (Pacerone) 200 MG tablet 2-08 00:00: 00 Yes = 1 tab, PO, Daily, # 90 tab, 0 Refill(s), Pharmacy: [facility], 193.04, cm, 09/01/23 9:58:00 CDT, Height, 135.318, kg, 09/01/23 9:58:00 CDT, Weight Tex kang Max Epic losartan (Cozaar) 25 MG tablet losartan (Cozaar) 25 MG tablet 2022-11 2-14 00:00: 00 10-06 00:00 :00 No = 0.5 tab, PO, Daily, # 45 tab, 2 Refill(s), Pharmacy: [facility], 193.04, cm, 09/01/23 9:58:00 CDT, Height, 135.318, kg, 09/01/23 9:58:00 CDT, Weight Memoria l Max Epic evolocumab (Repatha SureClick) 140 MG/ML injection evolocumab (Repatha SureClick) 140 MG/ML injection 2022-11 0- 00:00: 00 Yes 140mg 140 mg = 1 mL, SUB-Q, Q14D, # 6 mL, 3 Refill(s), Pharmacy: [facility], 193.04, cm, 09/01/23 9:58:00 CDT, Height, 135.318, kg, 09/01/23 9:58:00 CDT, Weight Memoria l Max Epic metoprolol succinate XL (Toprol-XL) 50 MG 24 hr tablet metoprolol succinate XL (Toprol-XL) 50 MG 24 hr tablet 08-07 00:00: 00 10-06 00:00 :00 No = 1 tab, PO, Daily, # 90 tab, 2 Refill(s), Pharmacy: [facility], 193.04, cm, 03/02/23 17:38:00 CDT, Height, 135.455, kg, 03/02/23 17:38:00 CDT, Weight Memoria l Max Epic furosemide (Lasix) 40 MG tablet furosemide (Lasix) 40 MG tablet 3-12 00:00: 00 10-06 00:00 :00 No = 1 tab, PO, Daily, # 180 tab, 2 Refill(s), Pharmacy: [facility], 193.04, cm, 08/26/22 15:09:00 CDT, Height, 141.591, kg, 08/26/22 15:09:00 CDT, Weight Memoria l Max Epic 24 HR Metoprolol Tartrate 100 MG Extended Release Tablet [Toprol] 2021-0 - 17:36: 00 Yes 100 mg = 1 tab, PO, Daily, # 90 tab, 3 Refill(s), Pharmacy: [facility], 193.04, cm, 08/29/21 17:30:00 CDT, Height, 157.727, kg, 08/29/21 17:30:00 CDT, Weight Memoria pearl [facility] atorvastati n 20 MG Oral Tablet [Lipitor] 12-27 17:36: 00 Yes 20 mg = 1 tab, PO, Bedtime, # 90 tab, 3 Refill(s), Pharmacy: [facility], 193.04, cm, 08/29/21 17:30:00 CDT, Height, 157.727, kg, 08/29/21 17:30:00 CDT, Weight Memoria pearl Santana losartan 25 mg oral tablet 12-27 17:34: 00 Yes 25 mg = 1 tab, PO, Daily, # 90 tab, 3 Refill(s), Pharmacy: [facility], 193.04, cm, 08/29/21 17:30:00 CDT, Height, 157.727, kg, 08/29/21 17:30:00 CDT, Weight Memoria pearl Max AMIODarone 200 mg oral tablet 12-27 17:30: 00 Yes 200 mg = 1 tab, PO, Daily, # 90 tab, 3 Refill(s), Pharmacy: [facility], 193.04, cm, 08/29/21 17:30:00 CDT, Height, 157.727, kg, 08/29/21 17:30:00 CDT, Weight Memoria pearl Max apixaban 5 MG Oral Tablet [Eliquis] 12-27 17:30: 00 Yes 5 mg = 1 tab, PO, Q12H, # 180 tab, 3 Refill(s), Pharmacy: [facility], 193.04, cm, 08/29/21 17:30:00 CDT, Height, 157.727, kg, 08/29/21 17:30:00 CDT, Weight Memoria pearl Max Furosemide 40 MG Oral Tablet 12-27 17:30: 00 Yes 40 mg = 1 tab, PO, BID Diuretic, # 180 tab, 3 Refill(s), Pharmacy: [facility], 193.04, cm, 08/29/21 17:30:00 [...] by mouth 2 (two) times a day. [facility] empaglifloz in (Jardiance) 25 MG 12-17 11:31: 02 Yes 1{tbl} QD Take 1 tablet by mouth 1 (one) time each day. [facility] levothyroxi ne (Synthroid, Levoxyl) 50 MCG tablet 12-17 11:31: 02 Yes 50ug Take 50 mcg by mouth 1 (one) time each day before breakfast. [facility] losartan 25 mg oral tablet 2020-11 20:40: 00 Yes 25 mg = 1 tab, PO, Daily, # 90 tab, 1 Refill(s), Pharmacy: [facility], 193.04, cm, 07/25/21 3:56:00 CDT, Height, 161.534, kg, 07/23/21 9:12:00 CDT, Weight [place] Furosemide 40 MG Oral Tablet 2020-11 20:38: 00 Yes 40 mg = 1 tab, PO, BID Diuretic, # 180 tab, 3 Refill(s), Pharmacy: [facility], 193.04, cm, 07/25/21 3:56:00 CDT, Height, 161.534, kg, 07/23/21 9:12:00 CDT, Weight Memoria pearl Santana AMIODarone 200 mg oral tablet 2020-11 20:38: 00 Yes 400 mg = 2 tab, PO, BID, # 360 tab, 3 Refill(s), Pharmacy: [facility], 193.04, cm, 07/25/21 3:56:00 CDT, Height, 161.534, kg, 07/23/21 9:12:00 CDT, Weight Memoria pearl Santana clopidogrel 75 mg oral tablet 2020-11 20:37: 00 Yes 75 mg = 1 tab, PO, Daily, # 90 tab, 3 Refill(s), Pharmacy: [facility], 193.04, cm, 07/25/21 3:56:00 CDT, Height, 161.534, kg, 07/23/21 9:12:00 CDT, Weight [place] levothyroxi ne (Synthroid, Levoxyl) 50 MCG tablet 08-08 09:14: 13 Yes 50ug Take 50 mcg by mouth 1 (one) time each day before breakfast. [facility] No known medications 08-08 09:14: 13 No No known medication s [facility] apixaban (Eliquis) 5 MG tablet 08-08 09:10: 00 Yes 5mg Q.5D Take 5 mg by mouth 2 (two) times a day. [facility] empaglifloz in (Jardiance) 25 MG 08-08 09:10: 00 Yes 1{tbl} QD Take 1 tablet by mouth 1 (one) time each day. [facility] Jardiance 07-30 14:00: 00 No Notes: (Same as: Jardiance) [place] Santana Lipitor 07-30 02:00: 00 No Notes: (Same [...] s with feeding tube less than 14 [place] (Dobhoff, J-tube etc) and pediatric and patients. [place] Santana Furosemide 07-29 21:00: 00 No Notes: (Same as: Lasix) May cause GI upset. Give with food or milk. Tex Santana tramadol hydrochlori de 50 MG Oral Tablet 07-29 17:22: 00 Yes 50 mg = 1 tab, PO, Q6H, # 10 tab, 0 Refill(s), Pharmacy: [facility], 193.04, cm, 07/25/21 3:56:00 CDT, Height, 161.534, kg, 07/23/21 9:12:00 CDT, Weight Halishyla paerl Santana levothyroxi ne 50 mcg (0.05 mg) oral tablet 07-29 15:04: 00 Yes 50 microgram = 1 tab, PO, Q630AM, # 30 tab, 0 Refill(s), Pharmacy: [facility], 193.04, cm, 07/25/21 3:56:00 CDT, Height, 161.534, kg, 07/23/21 9:12:00 CDT, Weight [place] Santana sacubitril 24 MG / valsartan 26 MG Oral Tablet [Entresto] 07-29 15:04: 00 Yes 1 tab, PO, Q12H, # 60 tab, 0 Refill(s), Pharmacy: [facility], 193.04, cm, 07/25/21 3:56:00 CDT, Height, 161.534, kg, 07/23/21 9:12:00 CDT, Weight Memoria l Max tamsulosin 0.4 mg oral capsule 07-29 15:04: 00 Yes 0.4 mg = 1 cap, PO, After Breakfast, # 30 cap, 0 Refill(s), Pharmacy: [facility], 193.04, cm, 07/25/21 3:56:00 CDT, Height, 161.534, kg, 07/23/21 9:12:00 CDT, Weight Memoria l Max Furosemide 40 MG Oral Tablet 07-29 15:03: 00 Yes 40 mg = 1 tab, PO, BID Diuretic, # 60 tab, 0 Refill(s), Pharmacy: [facility], 193.04, cm, 07/25/21 3:56:00 CDT, Height, 161.534, kg, 07/23/21 9:12:00 CDT, Weight Memoria l Max carvedilol 6.25 mg oral tablet 07-29 15:03: 00 Yes 6.25 mg = 1 tab, PO, Q12H, # 60 tab, 0 Refill(s), Pharmacy: [facility], 193.04, cm, 07/25/21 3:56:00 CDT, Height, 161.534, kg, 07/23/21 9:12:00 CDT, Weight Memoria l Max clopidogrel 75 mg oral tablet 07-29 15:03: 00 Yes 75 mg = 1 tab, PO, Daily, # 60 tab, 0 Refill(s), Pharmacy: [facility], 193.04, cm, 07/25/21 3:56:00 CDT, Height, 161.534, kg, 07/23/21 9:12:00 CDT, Weight Memoria l Max ferrous sulfate 325 MG Oral Tablet 07-29 15:03: 00 Yes 325 mg = 1 tab, PO, Daily, # 30 tab, 0 Refill(s), Pharmacy: [facility], 193.04, cm, 07/25/21 3:56:00 CDT, Height, 161.534, kg, 07/23/21 9:12:00 CDT, Weight [place] Santana apixaban 5 mg oral tablet 07-29 15:02: 00 Yes 5 mg = 1 tab, PO, Q12H, For Atrial Fibrillati on, # 60 tab, 0 Refill(s), Pharmacy: [facility], 193.04, cm, 07/25/21 3:56:00 CDT, Height, 161.534, kg, 07/23/21 9:12:00 CDT, Weight [place] Santana AMIODarone 200 mg oral tablet 07-29 15:01: 00 Yes 400 mg = 2 tab, PO, BID, # 90 tab, 0 Refill(s), Pharmacy: [facility], 193.04, cm, 07/25/21 3:56:00 CDT, Height, 161.534, kg, 07/23/21 9:12:00 CDT, Weight Tex Santana Plavix 07-29 14:00: 00 No Notes: (Same As: Plavix) Tex Santana ferrous sulfate 07-29 14:00: 00 No Notes: Give with food. iron elemental [id number] as ferrous sulfate Dose=___mg elemental iron Tex [...] s with feeding tube less than 14 [place] ([place]obhoff, J-tube etc) and pediatric and patients. Halishyla Henryann Lasix 07-29 02:00: 00 No Notes: (Same as: Lasix) Tex Santana carvedilol (Coreg) 6.25 MG tablet 07-29 00:00: 00 Yes 1{tbl} Q12H Take 1 tablet by mouth every 12 (twelve) hours. [facility] clopidogrel (Plavix) 75 MG tablet 07-29 00:00: 00 Yes 1{tbl} QD Take 1 tablet by mouth 1 (one) time each day. [facility] tamsulosin (Flomax) 0.4 MG 24 hr capsule 07-29 00:00: 00 Yes 1{capsu le} QD Take 1 capsule by mouth 1 (one) time each day. [facility] traMADol (Ultram) 50 MG tablet 07-29 00:00: 00 Yes 1{tbl} Q6H Take 1 tablet by mouth every 6 (six) hours. [facility] Lasix 07-28 21:00: 00 No Notes: [...] s with feeding tube less than 14 [place] ([place]obhoff, J-tube etc) and pediatric and patients. Tex Santana Flomax 07-28 13:30: 00 No Notes: (Same As: Flomax) "Do Not Crush" Tex Santana Eliquis 07-28 02:00: 00 No Notes: Same as: Eliquis [place] Santana Furosemide 07-27 21:00: 00 No Notes: (Same as: Lasix) Tex Santana Thyroxine 07-27 11:30: 00 No Notes: [...] within 36 hours of MIKE inhibitors Tex Santana BD Normal Saline Flush 07-26 21:52: 00 No Notes: (Same as: BD Posiflush) Tex Henryann Sodium Chloride 0.9% IV 07-26 21:52: 00 [...] 18:49: 00 No Notes: (Same as: Lasix) Tex Henryann Insulin Lispro 07-26 16:30: 00 No Notes: (Same as: Humalog) Roll in palms of hands gently; Do not shake vigorously . WASTE: F/P - Black; E - Municipal Trash Bin Stable for 28 days at room temperatur e. Expires in days from ____Date Tex kang Max carvedilol 07-26 14:29: 00 No Notes: Give with food. (Same As: Coreg) eTx Santana Insulin Glargine 07-26 14:00: 00 No [...] date: 07/25/21 10:48:00 CDT Tex Santana Ipratropium Bracey 0.2 MG/ML Inhalant Solution 07-25 15:06: 00 [...] juice. (Same as: Miralax) Tex Santana sennosides, GROUP HOME 8.6 MG Oral Tablet 07-25 14:00: 00 [...] (Same as: Transderm- Scop) Tex Santana Vasopressin (GROUP HOME) 07-25 02:46: 00 No Notes: (Same As: [...] IV 500 mL 07-25 02:00: 00 No 2000 mg: infuse over 2.5 hours For adult [...] No Notes: Use the following cdm for xuro1coz. Tex Santana vecuronium (ANES) 07-24 20:20: 00 [...] Notes: (Same as: Mag-Ox 400) Magnesium oxide 193yc=775s g elemental magnesium Dose=____m g magnesium oxide [...] 13:13:00 CDT, Stop date: 07/24/21 14:13:00 CDT Halishyla Santana sodium chloride (ANES) 48 mL + dexmedetomi dine (ANES) 200 microgram 07-24 18:01: 00 No Route: IV, Drug form: INJ, Start date: 07/24/21 13:01:00 CDT, Stop date: 07/24/21 14:01:00 CDT Memshyla pearl Max irrigation solution (ANES) 1000 mL 07-24 17:16: 00 No Route: IV, Total Volume: 1,000, Start date: 07/24/21 12:16:00 CDT, Stop date: 07/24/21 13:16:00 CDT Memshyla pearl Max Insulin regular (ANES) 07-24 16:22: 00 No Route: IV, Drug form: INJ, ONCE, Stop date: 07/24/21 11:22:00 CDT Memshyla Santana heparin (ANES) 07-24 16:12: 00 No Route: IV, Drug form: INJ, ONCE, Stop date: 07/24/21 11:12:00 CDT Halishyla Santana AMIODarone (ANES) 50 mg 07-24 16:12: 00 No Route: IV, Drug form: INJ, Start date: 07/24/21 11:12:00 CDT, Stop date: 07/24/21 12:12:00 CDT Memshyla pearl [place] phenylephri ne (ANES) 07-24 15:40: 00 No Route: IV, Drug form: INJ, ONCE, Stop date: 07/24/21 10:40:00 CDT Memshyla pearl [place] Amicar (ANES) 07-24 15:40: 00 No Route: IV, Drug form: INJ, ONCE, Stop date: 07/24/21 10:40:00 CDT Memshyla pearl [place] propofol (ANES) 07-24 15:35: 00 No Route: IV, Drug form: INJ, ONCE, Stop date: 07/24/21 10:35:00 CDT Memshyla pearl [place] succinylcho line (ANES) 07-24 15:35: 00 No Route: IV, Drug form: INJ, ONCE, Stop date: 07/24/21 10:35:00 CDT Memshyla pearl Max midazolam (ANES) 07-24 15:02: 00 No Route: IV, Drug form: SOLN, ONCE, Stop date: 07/24/21 10:02:00 CDT Memshyla pearl Santana fentaNYL (ANES) 07-24 15:02: 00 No [...] Yes 40 unit, SUB-Q, Daily, 0 Refill(s) Txe Santana semaglutide (Ozempic, 0.25 or 0.5 MG/DOSE,) [...] by mouth 1 (one) time each day. [facility] apixaban (Eliquis) 5 MG tablet 07-16 14:21: 39 Yes 5mg Q.5D Take 5 mg by mouth 2 (two) times a day. [facility] Insulin Regular Human (RELION R IJ) 07-16 14:21: 11 07-16 00:00 :00 No 20U Q.5D Inject 20 Units as directed 2 (two) times a day. [facility] empaglifloz in (Jardiance) 25 MG 07-16 09:23: 03 Yes 1{tbl} QD Take 1 tablet by mouth 1 (one) time each day. [facility] apixaban (Eliquis) 5 MG tablet 07-16 09:21: 39 Yes 5mg Q.5D Take 5 mg by mouth 2 (two) times a day. [facility] Ozempic, 0.25 or 0.5 MG/DOSE, 2 MG/1.5ML solution pen-injecto r 07-09 00:00: 00 Yes .5mg Inject 0.5 mg under the skin 1 (one) time per week. [facility] semaglutide (Ozempic, 0.25 or 0.5 MG/DOSE,) 2 MG/1.5ML solution pen-injecto r 06-18 00:00: 00 Yes .5mg 0.5 mg. [facility] insulin degludec (Tresiba FlexTouch) 200 UNIT/ML injection 06-18 00:00: 00 Yes 38U QD Inject 38 Units under the skin 1 (one) time each day. [facility] apixaban (Eliquis) 5 MG tablet 06-11 14:25: 25 Yes 5mg Q.5D Take 5 mg by mouth 2 (two) times a day. [facility] Insulin Regular Human (RELION R IJ) 06-11 14:25: 25 Yes 20U Q.5D Inject 20 Units as directed 2 (two) times a day. [facility] insulin NPH-insulin regular (NovoLIN) (70-30) 100 UNIT/ML injection 06-11 14:25: 25 Yes Inject under the skin 2 (two) times a day before meals. [facility] Insulin NPH Isophane & Regular (NOVOLIN 70/30 SC) 06-11 14:21: 45 06-11 00:00 :00 No Inject under the skin. [facility] insulin NPH-insulin regular (NovoLIN) (70-30) 100 UNIT/ML injection 06-11 09:25: 25 Yes Inject under the skin 2 (two) times a day before meals. [facility] Sodium Chloride 0.9% IV 750 mL [...] 2 (two) times a day before meals. [facility] Insulin NPH Isophane & Regular (NOVOLIN 70/30 SC) 06-04 18:30: 53 Yes Inject under the skin. [facility] apixaban (Eliquis) 5 MG tablet 06-04 18:29: 13 Yes 5mg Q.5D Take 5 mg by mouth 2 (two) times a day. [facility] apixaban (Eliquis) 5 MG tablet 05-23 16:36: 01 Yes 5mg Q.5D Take 5 mg by mouth 2 (two) times a day. [facility] furosemide (Lasix) 40 MG tablet 04-28 00:00: 00 Yes 1{tbl} Q.5D Take 1 tablet by mouth 2 (two) times a day. [facility] atorvastati n (Lipitor) 40 MG tablet 04-28 00:00: 00 Yes 40mg Take 40 mg by mouth every night. [facility] losartan (Cozaar) 25 MG tablet 04-28 00:00: 00 Yes .5{tbl} QD Take 0.5 tablets by mouth 1 (one) time each day. [facility] furosemide (Lasix) 80 MG tablet 04-28 00:00: 00 Yes 1{tbl} Q.5D Take 1 tablet by mouth 2 (two) times a day. [facility] Saline Flush 0.9% 04-18 14:00: 00 No Notes: (Same as: BD Posiflush) Tex Henryann Saline Flush 0.9% 04-18 12:50: 00 No Notes: (Same as: BD Posiflush) Memoria pearl Santana AMIODarone 200 mg oral tablet 03-22 17:58: 00 Yes 200 mg = 1 tab, PO, Daily, # 90 tab, 1 Refill(s), Pharmacy: [id number], 185.42, cm, 03/22/21 11:01:00 [...] by mouth 1 (one) time each day. [facility] atorvastati n 40 mg tablet 12-13 00:00: 00 Yes [id number] 40mg Take 1 tablet by mouth at bedtime. [facility] digoxin 125 mcg (0.125 mg) tablet 12-13 00:00: 00 Yes [id number] 125ug Take 1 tablet by mouth daily. [facility] furosemide 80 mg tablet 12-13 00:00: 00 Yes [id number] 80mg Take 1 tablet by mouth every morning and evening. [facility] losartan 25 mg tablet 12-13 00:00: 00 Yes [id number] 12.5mg Take 0.5 tablets by mouth daily. [facility] aspirin 81 MG chewable tablet 12-13 00:00: 00 Yes 81mg QD Chew 81 mg 1 (one) time each day. [facility] digoxin 125 mcg (0.125 mg) tablet 2019-11 00:00: 00 12-13 00:00 :00 No [id number] 125ug Take 1 tablet by mouth daily. [facility] insulin NPH and regular human 70-30 (HUMULIN 70-30 U-100 INSULIN) 100 unit/mL (70-30) injection 40 Units 2019-11 02:00: 00 Yes 40U 40 Units, Subcutaneo us, BID, First dose (after last modificati on) on Thu10/03/20 at 2000, Until Discontinu ed, Routine [facility] digoxin 125 mcg tablet 2019-11 00:00: 00 12-13 00:00 :00 No [id number] .125mg Take 1 tablet by mouth daily. [facility] losartan 25 mg tablet 2019-11 00:00: 00 12-13 00:00 :00 No [id number] 12.5mg Take 0.5 tablets by mouth daily. [facility] Sliding Scale Insulin - Lispro (HumaLOG) + Fsbg Testing 2019-11 20:00: 00 Yes Subcutaneo us, TIDAC, First dose (after last modificati on) on Thu10/03/20 at 1400, Until Discontinu ed, Routine [facility] insulin lispro (human) (HumaLOG U-100) injection 5 Units 2019-11 18:45: 00 10-03 17:45 :00 No 5U 5 Units, Subcutaneo us, ONCE, 1 dose, Thu10/03/20 at 1245, Routine [facility] KCL (KLOR-CON M20) tablet 20 mEq 2019-11 18:15: 00 10-03 17:47 :00 No 20meq 20 mEq, Oral, ONCE, 1 dose, Thu10/03/20 at 1215, Routine [facility] KCL (KLOR-CON M20) tablet 20 mEq 2019-11 15:00: 00 Yes 20meq 20 mEq, Oral, DAILY, First dose on Thu10/03/20 at 0900, Until Discontinu ed, Routine [facility] potassium chloride 20 mEq/100 mL (KCL) 20 mEq/100 mL 20 mEq piggyback 2019-11 13:30: 00 10-03 13:40 :00 No 20meq 20 mEq, IV Piggyback, ONCE, 1 dose, Thu10/03/20 at 0730 [facility] apixaban 5 mg tablet 2019-11 00:00: 00 Yes [id number] 5mg Take 1 tablet by mouth 2 (two) times daily. Indication s: prevention of thromboemb olism in paroxysmal atrial fibrillati on [facility] nitroglycer in 0.4 mg sublingual tablet 2019-11 00:00: [id number] 1 tablet under the tongue every 5 (five) minutes as needed for Chest pain. [facility] aspirin 81 mg chewable tablet 2019-11 00:00: 00 12-13 00:00 :00 No [id number] 81mg Take 1 tablet by mouth daily. [facility] atorvastati n 40 mg tablet 2019-11 00:00: 00 12-13 00:00 :00 No [id number] 40mg Take 1 tablet by mouth at bedtime. [facility] furosemide 40 mg tablet 2019-11 00:00: 00 12-13 00:00 :00 No [id number] 80mg Take 2 tablets by mouth every morning and evening. [facility] metoprolol succinate XL 50 mg 24 hr tablet 2019-11 00:00: 00 10-10 00:00 :00 No [id number] 75mg Take 1.5 tablets by mouth 2 (two) times daily. [facility] furosemide 80 mg tablet 2019-11 00:00: 00 10-03 00:00 :00 No [id number] 80mg Take 1 tablet by mouth every morning and evening for 90 days. [facility] metoprolol succinate XL 25 mg 24 hr tablet 2019-11 00:00: 10-03 00:00 :00 No [id number] 75mg Take 3 tablets by mouth 2 (two) times daily for 90 days. [facility] Sliding Scale Insulin - Lispro (HumaLOG) + Fsbg Testing 2019-11 20:00: 00 10-03 19:16 :39 No Subcutaneo us, TID, First dose (after last modificati on) on Thu10/02/20 at 1400, Until Discontinu ed, Routine [facility] insulin NPH and regular human 70-30 (HUMULIN 70-30 U-100 INSULIN) 100 unit/mL (70-30) injection 40 Units 2019-11 15:30: 00 10-03 19:16 :39 No 40U 40 Units, Subcutaneo us, QAM+PM, First dose (after last modificati on) on Thu10/02/20 at 0930, Until Discontinu ed, Routine [facility] furosemide (LASIX) tablet 80 mg 2019-11 15:00: 00 Yes 80mg 80 mg, Oral, QAM+PM, First dose on Thu10/02/20 at 0900, Until Discontinu ed, [facility] 80 mg 2019-11 20:00: 00 10-02 14:59 :44 No 80mg 80 mg, IV Push, TID, First dose (after last modificati on) on Thu10/01/20 at 1400, Until Discontinu ed, ANTON [facility] tc 99m-tetrofo smin (MYOVIEW) injection 35 millicurie 2019-11 19:15: 00 10-01 19:05 :00 No 35mCi 35 millicurie , Intravenou s, ONCE, 1 dose, Thu10/01/20 at 1315, Routine [facility] insulin NPH and regular human 70-30 (HUMULIN 70-30 U-100 INSULIN) 100 unit/mL (70-30) injection 40 Units 2019-11 15:00: 00 10-02 15:21 :14 No 40U 40 Units, Subcutaneo us, QAM+PM, First dose on Thu10/01/20 at 0900, Until Discontinu ed, Routine [facility] KCL (KLOR-CON M20) tablet 20 mEq 2019-11 14:15: 00 10-01 13:43 :00 No 20meq 20 mEq, Oral, ONCE, 1 dose, Thu10/01/20 at 0815, Routine [facility] magnesium sulfate in water 2 gram/50 mL (4 %) infusion 2 g 2019-11 14:00: 00 10-01 13:42 :00 No 2g 2 g, IV Piggyback, ONCE, 1 dose, Thu10/01/20 at 0800, Routine [facility] metoprolol succinate XL (TOPROL XL) tablet 75 mg 2019-11 02:00: 00 Yes 75mg 75 mg, Oral, BID, First dose (after last modificati on) on Thu09/30/20 at 2000, Until Discontinu ed, Routine [facility] sulfur hexafluorid e microsphr (LUMASON) injection 5 mL 2019-11 18:30: 00 09-30 16:00 :00 No 5mL 5 mL, Intravenou s, ONCE, 1 dose, [place] 09/30/20 at 1230, Routine
presentation team member approving Restricted medication : SHANITA VALADEZ, REJI [facility] digoxin (LANOXIN) tablet 125 mcg 2019-11 15:45: 00 Yes 125ug 125 mcg, Oral, DAILY, First dose on [place] 09/30/20 at 0945, Until Discontinu ed, Routine [facility] metoprolol succinate XL (TOPROL XL) tablet 25 mg 2019-11 15:28: 00 09-30 15:46 :00 No 25mg 25 mg, Oral, ONCE, 1 dose, [place] 09/30/20 at 0930, Routine [facility] Polyethylen e Glycol 3350 (MIRALAX) powder 17 g 2019-11 14:15: 00 10-02 20:22 :36 No 17g 17 g, Oral, BID, First dose on [place] 09/30/20 at 0815, Until Discontinu ed, Routine [facility] insulin glargine (LANTUS U-100) injection 16 Units 2019-11 03:00: 00 10-01 14:16 :00 No 16U 16 Units, Subcutaneo us, QHS, First dose on [facility] 09/29/20 at 2100, Until Discontinu ed, Routine [facility] apixaban (ELIQUIS) tablet 5 mg 2019-11 02:00: 00 Yes 5mg 5 mg, Oral, BID, First dose on [facility] 09/29/20 at 2000, Until Discontinu ed, Routine [facility] furosemide (LASIX) injection 80 mg 2019-11 02:00: 00 10-01 17:11 :54 No 80mg 80 mg, IV Push, Q12H, First dose (after last modificati on) on 09/29/20 at 2000, Until Discontinu ed, ANTON [facility] metoprolol succinate XL (TOPROL XL) tablet 50 mg 2019-11 02:00: 00 09-30 15:28 :45 No 50mg 50 mg, Oral, BID, First dose (after last modificati on) on 09/29/20 at 2000, Until Discontinu ed, Routine [facility] insulin lispro (human) (HumaLOG U-100) injection 4 Units 2019-11 23:00: 00 10-01 14:16 :00 No 4U 4 Units, Subcutaneo us, TID MEALS, First dose on 09/29/20 at 1700, Until Discontinu ed, Routine [facility] Sliding [facility] Insulin - Lispro (HumaLOG) + Fsbg Testing 2019-11 22:30: 00 10-02 14:18 :31 No Subcutaneo us, Q4H, First dose on 09/29/20 at 1630, Until Discontinu ed, Routine [facility] metoprolol succinate XL (TOPROL XL) tablet 12.5 mg 2019-11 17:04: 00 09-29 19:00 :00 No 12.5mg 12.5 mg, Oral, ONCE, 1 dose, 09/29/20 at 1115, Routine [facility] furosemide (LASIX) injection 40 mg 2019-11 15:41: 00 09-29 17:11 :00 No 40mg 40 mg, Slow IV Push, ONCE, 1 dose, 09/29/20 at 0945, Routine [facility] losartan (COZAAR) tablet 12.5 mg 2019-11 15:00: 00 Yes 12.5mg 12.5 mg, Oral, DAILY, First dose on 09/29/20 at 0900, Until Discontinu ed, Routine [facility] Sliding Scale Insulin - Lispro (HumaLOG) + Fsbg Testing 2019-11 14:00: 00 09-29 22:24 :01 No Subcutaneo us, TID MEALS+HS, First dose (after last modificati on) on 09/29/20 at 0800, Until Discontinu ed, Routine [facility] metoprolol succinate XL (TOPROL XL) tablet 37.5 mg 2019-11 14:00: 00 09-29 17:04 :42 No 37.5mg 37.5 mg, Oral, BID, First dose (after last modificati on) on 09/29/20 at 0800, Until Discontinu ed, Routine [facility] heparin STD 25,000 units/250ml in NS 2019-11 [...] Rang e, Dosing and Testing: &nbs p;FOR [place], [facility], AND [facility] ONLY &nbs p; - aPTT < [...] INITIAL INFUSION RATE.
[facility] KCL (KLOR-CON M20) tablet 20 mEq 2019-11 12:00: 00 09-29 11:35 :00 No 20meq 20 mEq, Oral, ONCE, 1 dose, 09/29/20 at 0600, Routine [facility] acetaminoph en (TYLENOL) tablet 325 mg 2019-11 00:30: 33 Yes 325mg 325 mg, Oral, Q6HPRN, Starting 09/28/20 at 1830, Until Discontinu ed, Routine, headache [facility] heparin 1,000 unit/mL injection 2019-11 18:32: 00 09-28 18:32 :00 No Slow IV Push, TITRATE - FOR PROCEDURE USE, 1 dose, Starting Thu09/28/20 at 1232, Until Thu09/28/20 at 1232, Routine [facility] nitroglycer in (TRIDIL) 2 mg in 10 mL D5W for Cardiac Cath 2019-11 18:32: 00 09-28 18:32 :00 No Intravenou s, TITRATE - FOR PROCEDURE USE, 1 dose, Starting Thu09/28/20 at 1232, Until Thu09/28/20 at 1232, Routine [facility] midazolam (VERSED) injection 2019-11 18:31: 00 09-28 18:31 :00 No IV Push, TITRATE - FOR PROCEDURE USE, 1 dose, Starting Thu09/28/20 at 1231, Until Thu09/28/20 at 1231, Routine [facility] FENTanyl PF (SUBLIMAZE (PF)) injection 2019-11 18:28: 20 09-28 18:28 :20 No Slow IV Push, TITRATE - FOR PROCEDURE USE, 1 dose, Starting Thu09/28/20 at 1228, Until Thu09/28/20 at 1228, Routine [facility] lidocaine 1% (PF) (XYLOCAINE) injection 2019-11 18:14: 00 09-28 18:14 :00 No Infiltrati on, TITRATE - FOR PROCEDURE USE, 1 dose, Starting Thu09/28/20 at 1214, Until Thu09/28/20 at 1214, Routine [facility] FENTanyl PF (SUBLIMAZE (PF)) injection 2019-11 18:00: 00 09-28 18:00 :00 No Slow IV Push, TITRATE - FOR PROCEDURE USE, 1 dose, Starting Thu09/28/20 at 1200, Until Thu09/28/20 at 1200, Routine [facility] midazolam (VERSED) injection 2019-11 18:00: 00 09-28 18:00 :00 No IV Push, TITRATE - FOR PROCEDURE USE, 1 dose, Starting Thu09/28/20 at 1200, Until Thu09/28/20 at 1200, Routine [facility] succ[facility] XL (TOPROL XL) tablet 25 mg 2019-11 15:15: 00 09-29 13:32 :40 No 25mg 25 mg, Oral, BID, First dose on Thu09/28/20 at 0915, Until Discontinu ed, Routine [facility] aspirin chewable tablet 81 mg 2019-11 15:00: 00 Yes 81mg 81 mg, Oral, DAILY, First dose on Thu09/28/20 at 0900, Until Discontinu ed, Routine [facility] pantoprazol e (PROTONIX) EC tablet 40 mg 2019-11 15:00: 00 Yes 40mg 40 mg, Oral, DAILY, First dose on Thu09/28/20 at 0900, Until Discontinu ed, Routine [facility] atorvastati n (LIPITOR) tablet 40 mg 2019-11 08:15: 00 Yes 40mg 40 mg, Oral, QHS, First dose on Thu09/28/20 at 0215, Until Discontinu ed, Routine [facility] nitroglycer in (NITROSTAT) sublingual tablet 0.4 mg 2019-11 08:02: 39 Yes .4mg 0.4 mg, Sublingual , Q5MIN PRN, Starting Thu09/28/20 at 0202, Until Discontinu ed, Routine, Chest pain [facility] furosemide (LASIX) injection 40 mg 2019-11 08:00: 00 09-29 15:41 :59 No 40mg 40 mg, IV Push, Q12H, First dose (after last reorder) on Thu09/28/20 at 0200, Until Discontinu ed, ANTON [facility] Sliding Scale Insulin - Lispro (HumaLOG) + Fsbg Testing 2019-11 06:00: 00 09-29 13:30 :59 No Subcutaneo us, Q6H ABX, First dose on Thu09/28/20 at 0000, Until Discontinu ed, Routine [facility] metoprolol tartrate (LOPRESSOR) tablet 25 mg 2019-11 05:00: 00 09-28 15:12 :41 No 25mg 25 mg, Oral, BID, First dose on [place] 09/27/20 at 2300, Until Discontinu ed, Routine [facility] heparin STD 25,000 units/250ml in NS [...] Rang e, Dosing and Testing: &nbs p;FOR [place], [facility], AND [facility] ONLY &nbs p; - aPTT < [...] INITIAL INFUSION RATE.
[facility] aspirin tablet 325 mg 2019-11 04:15: 00 09-28 03:38 :00 No 325mg 325 mg, Oral, ONCE, 1 dose, [place] 09/27/20 at 2215, Routine [facility] iohexol (OMNIPAQUE 350 BULK-100 mL) injection 100 mL 2019-11 21:45: 00 09-27 21:45 :00 No 100mL 100 mL, Intravenou s, ONCE, 1 dose, [place] 09/27/20 at 1545, Routine [facility] furosemide (LASIX) injection 40 mg 2019-11 21:45: 00 09-27 21:04 :00 No 40mg 40 mg, IV Push, ONCE, 1 dose, [place] 09/27/20 at 1545, ANTON [facility] heparin 25,000 Units/250 mL (Premixed Bag) in [...] Rang e, Dosing and Testing: &nbs p;FOR [facility], AND [facility] ONLY &nbs p; - aPTT < [...] INITIAL INFUSION RATE.
[facility] heparin 1000 unit/mL injection Soln 4,000 Units 2019-11 20:45: 00 09-27 20:45 :00 No 4000U 4,000 Units, IV Push, ONCE, 1 dose, [place] 09/27/20 at 1445, Routine [facility] aspirin 81 mg capsule Take 1 capsule [...] Mini Pen Needle 31 gauge x 3/16" [facility] metoprolol succinate [...] 1 CAPSULE BY MOUTH ONCE A WEEK [facility] FreeStyle Tobin 3 Sensor device USE DIRECTED - CHANGE EVERY 14 DAYS FreeStyle Tobin 3 Sensor device USE DIRECTED - CHANGE EVERY 14 DAYS No FreeStyle Tobin 3 Sensor device USE DIRECTED - CHANGE EVERY 14 DAYS [facility] ipratropium bromide 21 mcg (0.03 %) nasal spray ipratropium bromide 21 mcg (0.03 %) nasal spray No ipratropiu m bromide 21 mcg (0.03 %) nasal spray [facility] albuterol sulfate HFA 90 mcg/actuati on aerosol inhaler INHALE 2 PUFFS BY MOUTH EVERY 4 TO 6 HOURS NEEDED albuterol sulfate HFA 90 mcg/actuati on aerosol inhaler INHALE 2 PUFFS BY MOUTH EVERY 4 TO 6 HOURS NEEDED No albuterol sulfate HFA 90 mcg/actuat ion aerosol inhaler INHALE 2 PUFFS BY MOUTH EVERY 4 TO 6 HOURS NEEDED [facility] cefdinir 300 mg capsule TAKE 1 CAPSULE BY MOUTH TWICE DAILY FOR 10 DAYS cefdinir 300 mg capsule TAKE 1 CAPSULE BY MOUTH TWICE DAILY FOR 10 DAYS No cefdinir 300 mg capsule TAKE 1 CAPSULE BY MOUTH TWICE DAILY FOR 10 DAYS [facility] sulfamethox azole 800 mg-trimetho prim 160 mg tablet TAKE 1 TABLET BY MOUTH TWICE DAILY FOR 14 DAYS sulfamethox azole 800 mg-trimetho prim 160 mg tablet TAKE 1 TABLET BY MOUTH TWICE DAILY FOR 14 DAYS No sulfametho xazole 800 mg-trimeth oprim 160 mg tablet TAKE 1 TABLET BY MOUTH TWICE DAILY FOR 14 DAYS [facility] Fiasp FlexTouch [...] glucose >200 using Cf 1:20; TDD 50 [facility] levofloxaci n 500 mg [...] START UNTIL ALL ANTIBIOTIC S ARE FINISHED [facility] Immunizations Ordered Immunization Name Filled Immunization Name Date Status Comments Source [id number]< sup>1</sup> 2021-02-13 00:00:00 Completed Radha Santana COVID-19, mRNA, LNP-S, PF, 100 mcg/0.5 mL dose (Moderna) - ML COVID-19, mRNA, LNP-S, PF, 100 mcg/0.5 mL dose (Moderna) - ML Unknown Completed [facility] Vital Signs Vital Name Observation Time [...] (Body Mass Index) 2024-04-18 00:00:00 [facility] 2024-04-18 00:00:00 76 [in_i] [facility] BP Systolic 2023-10-20 00:00:00 143 mm[Hg] [facility] BMI (Body Mass Index) 2023-10-20 00:00:00 35.9 kg/m2 [facility] Diastolic 2023-10-20 00:00:00 85 mm[Hg] [facility] Body Weight 2023-10-20 00:00:00 295 [lb_av] [facility] Height 2023-10-20 00:00:00 76 [in_i] [facility] BP Diastolic 2023-04-20 00:00:00 92 mm[Hg] [facility] Height 2023-04-20 00:00:00 76 [in_i] [facility] BMI (Body Mass Index) 2023-04-20 00:00:00 36.6 kg/m2 [facility] BP Systolic 2023-04-20 00:00:00 154 mm[Hg] [facility] Body Weight 2023-04-20 00:00:00 300[facility]6 [facility]lb_av[facility] Di[facility] 2023-01-13 00:00:00 73 mm[Hg] [facility] Height 2023-01-13 00:00:00 76 [in_i] [facility] BMI (Body Mass Index) 2023-01-13 00:00:00 37.5 kg/m2 [facility] BP Systolic 2023-01-13 00:00:00 120 mm[Hg] [facility] Body Weight 2023-01-13 00:00:00 308 [lb_av] [facility] BP Diastolic 2022-07-25 00:00:00 82 mm[Hg] [facility] Height 2022-07-25 00:00:00 76 [in_i] [facility] BMI (Body Mass Index) 2022-07-25 00:00:00 37.7 kg/m2 [facility] BP Systolic 2022-07-25 00:00:00 134 mm[Hg] [facility] Body Weight 2022-07-25 00:00:00 310 [lb_av] [facility] BP Diastolic 2022-01-17 00:00:00 86 mm[Hg] [facility] Height 2022-01-17 00:00:00 76 [in_i] [facility] BMI (Body Mass Index) 2022-01-17 00:00:00 41.1 kg/m2 [facility] BP Systolic 2022-01-17 00:00:00 149 mm[Hg] [facility] Body Weight 2022-01-17 00:00:00 338 [...] H ealt BMI 2021-05-23 16:31:00 44.92 kg/m2 [facility] Sy[facility] blood pressure 2021-01-09 20:45:00 132 mm[Hg] [facility] Diastolic blood pressure 2021-01-09 20:45:00 82 mm[Hg] [facility] Heart rate 2021-01-09 20:45:00 78 /min [facility] Body temperature 2021-01-09 20:45:00 36.72 [facility] Body height 2021-01-09 20:45:00 193 cm [facility] Body weight 2021-01-09 20:45:00 163.93 kg [facility] BMI 2021-01-09 20:45:00 43.99 kg/m2 [facility] Oxygen saturation in Arterial blood by Pulse oximetry 2021-01-09 20:45:00 97 /min [facility] Systolic blood pressure 2021-01-09 20:45:00 132 mm[Hg] [facility] Diastolic blood pressure 2021-01-09 20:45:00 82 mm[Hg] [facility] Heart rate 2021-01-09 20:45:00 78 /min [facility] Body temperature 2021-01-09 20:45:00 36.72 [facility] Body height 2021-01-09 20:45:00 193 cm [facility] Body weight 2021-01-09 20:45:00 163.93 kg [facility] BMI 2021-01-09 20:45:00 43.99 kg/m2 [facility] Oxygen saturation in Arterial blood by Pulse oximetry 2021-01-09 20:45:00 97 /min [facility] Systolic blood pressure 2020-12-13 21:25:00 128 mm[Hg] [facility] Diastolic blood pressure 2020-12-13 21:25:00 82 mm[Hg] [facility] Heart rate 2020-12-13 21:25:00 95 /min [facility] Body temperature 2020-12-13 21:25:00 36.78 [facility] Body height 2020-12-13 21:25:00 193 cm [facility] Body weight 2020-12-13 21:25:00 165.518 kg [facility] BMI 2020-12-13 21:25:00 44.42 kg/m2 [facility] Oxygen saturation in Arterial blood by Pulse oximetry 2020-12-13 21:25:00 96 /min [facility] Systolic blood pressure 2020-10-10 21:52:00 117 mm[Hg] [facility] Diastolic blood pressure 2020-10-10 21:52:00 82 mm[Hg] [facility] Heart rate 2020-10-10 21:52:00 81 /min [facility] Body temperature 2020-10-10 21:52:00 36.39 [facility] Respiratory rate 2020-10-10 21:52:00 18 /min [facility] Body height 2020-10-10 21:52:00 193 cm [facility] Body weight 2020-10-10 21:52:00 159.802 kg [facility] BMI 2020-10-10 21:52:00 42.88 kg/m2 [facility] Oxygen saturation in Arterial blood by Pulse oximetry 2020-10-10 21:52:00 98 /min [facility] Systolic blood pressure 2020-10-03 21:56:00 105 mm[Hg] [facility] Diastolic blood pressure 2020-10-03 21:56:00 56 mm[Hg] [facility] Heart rate 2020-10-03 21:56:00 87 /min [facility] Body temperature 2020-10-03 21:56:00 37 [facility] Respiratory rate 2020-10-03 21:56:00 20 /min [facility] Oxygen saturation in Arterial blood by Pulse oximetry 2020-10-03 21:56:00 96 /min [facility] Body weight 2020-10-03 01:52:00 156.31 kg [facility] BMI 2020-10-03 01:52:00 41.95 kg/m2 [facility] Body height 2020-10-02 20:10:00 193 cm [facility] Heart Rate 2021-12-27 18:23:00 [facility] Systolic (mm Hg) 2021-12-27 18:23:00 [facility] [place] Diastolic (mm Hg) 2021-12-27 18:23:00 [facility] Height 2021-12-27 18:23:00 193.04 cm [facility] Weight 2021-12-27 18:23:00 [facility] BMI Calculated 2021-12-27 18:23:00 [facility] Systolic (mm Hg) 2021-08-29 22:30:00 [facility] [place] Diastolic (mm Hg) 2021-08-29 22:30:00 [facility] Height 2021-08-29 22:30:00 193.04 cm [facility] [place] Weight 2021-08-29 22:30:00 [facility] [place] BMI Calculated 2021-08-29 22:30:00 [facility] [place] Heart Rate 2021-07-29 17:00:00 [facility] [place] Respitory Rate 2021-07-29 17:00:00 [facility] [place] Systolic (mm Hg) 2021-07-29 17:00:00 [facility] Diastolic (mm Hg) 2021-07-29 17:00:00 [facility] Heart Rate 2021-07-29 13:00:00 [facility] [place] Respitory Rate 2021-07-29 13:00:00 [facility] Systolic (mm Hg) 2021-07-29 13:00:00 [facility] Diastolic (mm Hg) 2021-07-29 13:00:00 [facility] [place] Temperature Oral (F) 2021-07-29 09:00:00 98.4 F [facility] [place] Temperature Oral (F) 2021-07-29 05:00:00 97.4 F [facility] Heart Rate 2021-07-29 05:00:00 [facility] [place] Respitory Rate 2021-07-29 05:00:00 [facility] Systolic (mm Hg) 2021-07-29 05:00:00 [facility] Diastolic (mm Hg) 2021-07-29 05:00:00 [facility] Temperature Oral (F) 2021-07-29 01:00:00 97.9 F [facility] [place] Heart Rate 2021-07-29 01:00:00 [facility] [place] Respitory Rate 2021-07-29 01:00:00 [facility] [place] Systolic (mm Hg) 2021-07-29 01:00:00 [facility] [place] Diastolic (mm Hg) 2021-07-29 01:00:00 [facility] [place] Temperature Oral (F) 2021-07-28 20:55:00 97.9 F [facility] [place] Heart Rate 2021-07-28 20:55:00 [facility] [place] Respitory Rate 2021-07-28 20:55:00 [facility] [place] Systolic (mm Hg) 2021-07-28 20:55:00 [facility] Diastolic (mm Hg) 2021-07-28 20:55:00 [facility] Height 2021-07-25 08:56:00 193.04 cm [facility] Height 2021-07-25 04:45:00 193.04 cm [facility] Height 2021-07-25 00:56:00 193.04 cm [facility] Weight 2021-07-23 14:12:00 [facility] [place] BMI Calculated 2021-07-23 14:12:00 [facility] Systolic (mm Hg) 2021-06-05 19:30:00 [facility] [place] Diastolic (mm Hg) 2021-06-05 19:30:00 [facility] Respitory Rate 2021-06-05 19:30:00 [facility] Systolic (mm Hg) 2021-06-05 19:00:00 [facility] [place] Diastolic (mm Hg) 2021-06-05 19:00:00 [facility] [place] Respitory Rate 2021-06-05 19:00:00 [facility] Systolic (mm Hg) 2021-06-05 18:30:00 [facility] Diastolic (mm Hg) 2021-06-05 18:30:00 [facility] Respitory Rate 2021-06-05 18:30:00 [facility] [place] Heart Rate 2021-06-05 17:30:00 [facility] [place] Heart Rate 2021-06-05 17:25:00 [facility] [place] Heart Rate 2021-06-05 17:20:00 [facility] Height 2021-06-05 15:33:00 193.04 cm [facility] [place] Weight 2021-06-05 15:33:00 [facility] [place] BMI Calculated 2021-06-05 15:33:00 [facility] [place] Systolic (mm Hg) 2021-05-23 15:14:00 [facility] Diastolic (mm Hg) 2021-05-23 15:14:00 [facility] [place] Heart Rate 2021-05-23 15:14:00 [facility] Height 2021-05-23 15:14:00 182.88 cm [facility] Weight 2021-05-23 15:14:00 [facility] BMI Calculated 2021-05-23 15:14:00 [facility] Systolic (mm Hg) 2021-04-18 17:15:00 [facility] Diastolic (mm Hg) 2021-04-18 17:15:00 [facility] Systolic (mm Hg) 2021-04-18 17:00:00 [facility] Diastolic (mm Hg) 2021-04-18 17:00:00 [facility] [place] Systolic (mm Hg) 2021-04-18 16:45:00 [facility] [place] Diastolic (mm Hg) 2021-04-18 16:45:00 [facility] Respitory Rate 2021-04-18 16:30:00 [facility] [place] Respitory Rate 2021-04-18 16:15:00 [facility] [place] Respitory Rate 2021-04-18 16:00:00 [facility] [place] Height 2021-04-18 12:47:00 152.4 cm [facility] [place] Weight 2021-04-18 12:47:00 [facility] BMI Calculated 2021-04-18 12:47:00 [facility] Systolic (mm Hg) 2021-03-22 16:01:00 [facility] [place] Diastolic (mm Hg) 2021-03-22 16:01:00 [facility] Heart Rate 2021-03-22 16:01:00 [facility] Height 2021-03-22 16:01:00 185.42 cm [facility] [place] Weight 2021-03-22 16:01:00 [facility] [place] BMI Calculated 2021-03-22 16:01:00 [facility] [place] Procedures Procedure Date / Time Performed Performing Clinician Source ECG 12-LEAD 2024-03-08 15:28:[address] [facility] 2023-03-02 16:21:[address] [facility] 12-[facility]AD 2021-08-29 19:24:52 System, Prov ider Not In [facility] ECG 12-LEAD 2021-08-29 19:24:52 System, Prov ider Not In [facility] ECG 12-LEAD 2021-08-08 00:00:00 Moi Estrada [facility] XR CHEST 2 VIEWS 2021-08-07 14:03:54 Vishal [facility] XR CHEST 2 VIEWS 2021-08-07 14:03:54 Vishal [facility] XR CHEST 2 VIEWS 2021-07-23 17:27:31 Vishal [facility] XR CHEST 2 VIEWS 2021-07-23 17:27:31 Vishal [facility] BREATHING CAPACITY TEST 2021-07-23 15:25:28 Brittanie Estrada [facility] ECG 12-LEAD 2021-07-16 00:00:00 Moi Estrada [facility] US CAROTID DOPPLER BILATERAL 2021-06-26 19:01:34 Vishal [facility] US CAROTID DOPPLER BILATERAL 2021-06-26 19:01:[address] [facility] [address] CHEST WO CONTRAST 2021-06-26 18:26:[address] [facility] [address] CHEST WO CONTRAST 2021-06-26 18:26:52 Vishal [facility] US DUP-SCAN HEMO COMPL UNI 2021-06-21 14:56:36 Moi Estrada [facility] US DUP-SCAN HEMO COMPL [facility] 2021-06-21 14:56:36 Moi Estrada [facility] ECG 12-LEAD 2021-06-11 00:00:00 Moi Estrada [facility] th ECG 12-LEAD 2021-06-04 18:33:00 Mk Porter [facility] MRI CARDIAC MORPHOLOGY AND FUNCTION W AND WO IV CONTRAST 2021-05-11 22:26:[facility] AND FUNCTION W AND WO IV CONTRAST 2021-05-11 22:26:00 [facility]/SUPPLY JUSTIFICATION 2021-04-25 05:01:00 Doc emmanuelle Unassigned, [facility] DME/SUPPLY JUSTIFICATION 2021-04-10 05:01:00 Doc emmanuelle Unassigned, [facility] ASSIGNMENT OF BENEFITS 2020-10-10 21:36:15 Ifeoma jonas Unassigned, [facility] POCT GLUCOSE (AUTOMATED) 2020-10-03 22:51:00 Itu Oleksandr Mejía [facility] POCT GLUCOSE (AUTOMATED) 2020-10-03 21:03:00 Itu Oleksandr Mejía [facility] POCT GLUCOSE (AUTOMATED) 2020-10-03 20:02:00 Itu Oleksandr Mejía [facility] POCT GLUCOSE (AUTOMATED) 2020-10-03 17:25:00 Itu Oleksandr Mejía [facility] POCT GLUCOSE (AUTOMATED) 2020-10-03 13:40:00 Itu Oleksandr Mejía [facility] MAGNESIUM 2020-10-03 11:08:00 Shira Lund [facility] BASIC METABOLIC PANEL (NA, K, CL, CO2, GLUCOSE, BUN, CREATININE, CA) 2020-10-03 11:08:00 Shira Lund [facility] N-TERMINAL PRO-BNP 2020-10-03 11:08:00 Marlin Francis [facility] POCT GLUCOSE (AUTOMATED) 2020-10-03 02:16:00 Itu Oleksandr Mejía [facility] POCT GLUCOSE (AUTOMATED) 2020-10-03 00:28:00 Oleksandr Harris [facility] TRANSESOPHAGEAL ECHO 2020-10-02 21:32:30 Emily Kendall [facility] POCT GLUCOSE (AUTOMATED) 2020-10-02 20:07:00 Itu Oleksandr Mejía [facility] POCT GLUCOSE (AUTOMATED) 2020-10-02 16:10:00 Itu Oleksandr Mejía [facility] POCT GLUCOSE (AUTOMATED) 2020-10-02 14:11:00 Itu Oleksandr Mejía [facility] MAGNESIUM 2020-10-02 11:34:00 [facility]OLIC PANEL (NA, K, CL, CO2, GLUCOSE, BUN, CREATININE, CA) 2020-10-02 11:34:00 Shira Lund [facility] POCT GLUCOSE (AUTOMATED) 2020-10-02 10:34:00 Itu Oleksandr Mejía [facility] POCT GLUCOSE (AUTOMATED) 2020-10-02 06:06:00 Itu Oleksandr Mejía [facility] Echocardiogram<sup>1</sup> 2020-10-02 06:00:00 [facility] POCT GLUCOSE (AUTOMATED) 2020-10-02 02:19:00 Itu Oleksandr Mejía [facility] POCT GLUCOSE (AUTOMATED) 2020-10-01 23:01:00 Itu Oleksandr Mejía [facility] NM MYOCARDIAL VIABILITY REST 2020-10-01 21:55:48 Oleksandr Santiago [facility] POCT GLUCOSE (AUTOMATED) 2020-10-01 16:26:00 Itu Oleksandr Mejía [facility] POCT GLUCOSE (AUTOMATED) 2020-10-01 13:39:00 Itu Oleksandr Mejía [facility] MAGNESIUM 2020-10-01 11:14:00 Ashely, Shira [facility] BASIC METABOLIC PANEL (NA, K, CL, CO2, GLUCOSE, BUN, CREATININE, CA) 2020-10-01 11:14:00 Shira Lund [facility] POCT GLUCOSE (AUTOMATED) 2020-10-01 10:38:00 Itu serenity-Oleksandr Guevara [facility] POCT GLUCOSE (AUTOMATED) 2020-10-01 05:48:00 Itu rrizaga-[place] HaverstrawOleksandr [facility] POCT GLUCOSE (AUTOMATED) 2020-10-01 01:14:00 Itu rrizaga-[place] HaverstrawOleksandr [facility] POCT GLUCOSE (AUTOMATED) 2020-09-30 22:43:00 Itu serenity-Oleksandr Guevara [facility] POCT GLUCOSE (AUTOMATED) 2020-09-30 18:40:00 Itu serenity-Oleksandr Guevara [facility] POCT GLUCOSE (AUTOMATED) 2020-09-30 15:22:00 Itu Oleksandr Mejía [facility] ECHO ROUTINE W/DOPPLER COLOR 2020-09-30 15:07:37 Eva Limon [facility] MAGNESIUM 2020-09-30 10:50:00 [facility]IC METABOLIC PANEL (NA, K, CL, CO2, GLUCOSE, BUN, CREATININE, CA) 2020-09-30 10:50:00 Ashely [facility] ACTIVATED PARTIAL THRMPLAS RAY 2020-09-30 10:50:00 Huy Clay [facility] POCT GLUCOSE (AUTOMATED) 2020-09-30 10:46:00 Itu rrizaga-PaolaOleksandr [facility] POCT GLUCOSE (AUTOMATED) 2020-09-30 05:37:00 Itu rrrosalva-Oleksandr Guevara [facility] POCT GLUCOSE (AUTOMATED) 2020-09-30 03:06:00 Itu rrrosalva-Oleksandr Guevara [facility] POCT GLUCOSE (AUTOMATED) 2020-09-30 00:32:00 Itu rrizaga-PaolaOleksandr [facility] POCT GLUCOSE (AUTOMATED) 2020-09-29 21:52:00 Itu Oleksandr Mejía [facility] POCT GLUCOSE (AUTOMATED) 2020-09-29 18:30:00 Itu Oleksandr Mejía [facility] POCT GLUCOSE (AUTOMATED) 2020-09-29 14:48:00 Itu Oleksandr Mejía [facility] POCT GLUCOSE (AUTOMATED) 2020-09-29 11:31:00 Itu Oleksandr Mejía [facility] POCT GLUCOSE (AUTOMATED) 2020-09-29 07:37:00 Itu Oleksandr Mejía [facility] MAGNESIUM 2020-09-29 07:30:00 Shira Lund [facility] TROPONIN I 2020-09-29 07:30:00 Eva Limon [facility] BASIC METABOLIC PANEL (NA, K, CL, CO2, GLUCOSE, BUN, CREATININE, CA) 2020-09-29 07:30:00 [facility] GLYCOSYLATED HEMOGLOBIN (A1C) 2020-09-29 07:30:00 Lucille Raymundo [facility] ACTIVATED PARTIAL THRMPLAS RAY 2020-09-29 07:30:00 Braxton [facility] POCT GLUCOSE (AUTOMATED) 2020-09-29 04:36:00 Itu Oleksnadr Mejía [facility] POCT GLUCOSE (AUTOMATED) 2020-09-29 01:31:00 Itu Oleksandr Mejía [facility] ACTIVATED PARTIAL THRMPLAS RAY 2020-09-28 22:33:00 [facility]OUT[facility] & RHYTHM STRIP 2020-09-28 20:09:53 Emily Kendall [facility] POCT GLUCOSE (AUTOMATED) 2020-09-28 12:15:00 Itu Oleksandr Mejía [facility] TROPONIN I 2020-09-28 09:42:00 Eva Limon [facility] ACTIVATED PARTIAL THRMPLAS RAY 2020-09-28 09:42:00 Braxton [facility] POCT GLUCOSE (AUTOMATED) 2020-09-28 06:29:00 Oleksandr Harris [facility] Cardiac catheterization, left heart<sup>2</sup> 2020-09-28 06:00:00 [facility] EKG-12 LEAD 2020-09-28 04:44:41 Oleksandr Winkler [facility] TROPONIN I 2020-09-28 03:26:00 Eva Limon [facility] LIPID PANEL (60954)(TOTAL CHOLESTEROL, TRIGLYCERIDES, HDL) 2020-09-28 03:26:00 Braxton [facility] ACTIVATED PARTIAL THRMPLAS RAY 2020-09-28 03:26:00 Braxton [facility] CT CHEST PULMONARY ANGIOGRAM 2020-09-27 21:31:11 Elisabet Deshpande [facility] LACTATE DEHYDROGENASE 2020-09-27 21:05:00 Mara Deshpande [facility] LIPASE 2020-09-27 19:09:00 Elisabet Deshpande [facility] TROPONIN I 2020-09-27 19:09:00 Jeramy Elisabet G [facility] HEPATIC FUNCTION PANEL (95178) (ALB,T.PRO,BILI T,BU/BC,ALT,AST,ALK PHOS) 2020-09-27 19:09:00 Elisabet Deshpande [facility] BASIC METABOLIC PANEL (NA, K, CL, CO2, GLUCOSE, BUN, CREATININE, CA) 2020-09-27 19:09:00 Elisabet Deshpande [facility] CBC WITH DIFF 2020-09-27 19:09:00 Elisabet Deshpande [facility] PROTHROMBIN TIME / INR 2020-09-27 19:09:00 Yesenia Deshpande ala [facility] D-DIMER 2020-09-27 19:09:00 Elisabet Deshpande [facility] ACTIVATED PARTIAL THRMPLAS RAY 2020-09-27 19:09:00 Elisabet Deshpande [facility] N-TERMINAL PRO-BNP 2020-09-27 19:09:00 Elisabet Deshpande [facility] COVID-19 (ID NOW RAPID TESTING) 2020-09-27 19:09:00 Elisabet Deshpande [facility] LAB ONLY COVID INTERPRETATION 2020-09-27 19:09:00 Elisabet Deshpande [facility] HB ECG ROUTINE & RHYTHM STRIP 2020-09-27 18:52:44 Elisabet Deshpande [facility] XR CHEST 1 VW 2020-09-27 18:52:03 [facility] PRIVAC[facility] PRACTICES 2020-09-27 18:03:30 Doctor Unassigned, [facility] CARDIAC CATHETERIZATION 2019-11-16 00:00:00 [facility] RIGHT SHOULDER SURGERY [facility] [place] RIGHT FOOT SURGERY [facility] APPENDECTOMY [facility] Encounters Start Date/Time End Date/Time Encounter Type Admission Type Attending [facility] Care Department Encounter ID Source 2023-03-27 11:45:47 Outpatient [facility] [id number] [facility] 2023-01-05 12:32:47 Outpatient [facility] [id number] [facility] 2022-12-29 18:46:44 Outpatient [facility] [id number] [facility] 2022-08-27 18:04:34 Outpatient [facility] [id number] [facility] 2022-05-20 18:18:22 Outpatient KJ LOPEZ [id number] 2022-02-14 14:40:31 Outpatient BAYTN B[facility] [id number] [facility] 2022-02-12 13:10:48 Outpatient BAYTN BAYTN [id number] [facility] 2021-12-04 08:31:55 Outpatient KJ LOPEZ [id number] 2021-10-23 01:04:21 Outpatient OMI ESTRADA [facility] [id number] [facility] 2021-07-29 09:32:19 Outpatient MOI ESTRADA [facility] [id number] [facility] 2021-07-19 09:55:12 Outpatient MOI ESTRADA [id number] [facility] 2021-06-10 10:07:33 Outpatient MOI ESTRADA [facility] [id number] [facility] 2021-05-23 10:39:56 Outpatient MOI ESTRADA [facility] [id number] [facility] 2021-05-21 08:47:00 Outpatient MK PORTER [facility] [id number] [facility] 2021-03-26 01:03:33 Outpatient KJ LOPEZ [facility] [id number] [facility] 2024-10-06 00:00:00 2024-10-06 14:18:56 Refill Kj Lopez [facility] [place] [id number] [facility] [id number]..[id number] [facility] 2024-04-18 00:00:00 2024-04-18 00:00:00 Garth Rios MD: [id number] [facility] [place] [facility], [address], [place] [address] , Ph. [facility] - [place] - VM_HOU_Shad [facility] [id number] [place] 2024-03-08 09:49:00 2024-03-08 23:59:00 Outpatient KJ LOPEZ [facility] [id number] [facility] 2024-03-08 09:45:00 2024-03-08 09:45:00 External Contact KJ LOPEZ [facility] LOCATION ..840.114 [id number] [facility] 2024-02-25 00:00:00 2024-02-25 00:00:00 Outpatient Gabriel_T_HO U_MD [facility] [id number] [facility] 2023-10-21 00:00:00 2023-10-21 00:00:00 Outpatient [facility]HO [facility] [id number] [facility] 2023-10-20 00:00:00 2023-10-20 00:00:00 Outpatient Daniel_T_HO U_ VFP VFP [id number] [facility] 2023-10-20 00:00:00 2023-10-20 00:00:00 Garth Rios MD: [id number] [place] [address], [address], [place] [address] , Ph. VFP [place] - [facility] - [place] - VM_HOU_Shad ow [place] [id number] [facility] 2023-10-17 00:00:00 2023-10-17 00:00:00 Outpatient Daniel_T_HO U_ VFP VFP [id number] [facility] 2023-09-01 09:31:00 2023-09-01 23:59:00 Outpatient KJ LOPEZ [facility] [id number] [facility] 2023-09-01 10:45:00 2023-09-01 10:45:00 External Contact KJ LOPEZ EXT [facility] LOCATION [id number] [facility] 2023-04-20 00:00:00 2023-04-20 00:00:00 Outpatient Daniel_T VFP VFP [id number] [facility] 2023-04-20 00:00:00 2023-04-20 00:00:00 Outpatient Daniel_T VFP VFP [id number] [facility] 2023-04-20 00:00:00 2023-04-20 00:00:00 Garth Rios MD: [id number], [address], [place] [address] , Ph. VFP [place] - [facility] - [place] - VM_HOU_Shad ow [place] [id number] [facility] 2023-04-17 00:00:00 2023-04-17 00:00:00 Outpatient Daniel_T VFP VFP [id number] [facility] 2023-03-02 11:03:00 2023-03-02 23:59:00 Outpatient KJ LOPEZ [id number] 2023-03-02 10:30:00 2023-03-02 10:30:00 External Contact KJ LOPEZ [facility] LOCATION 1..840.114 [id number] [facility] 2023-01-13 00:00:00 2023-01-13 00:00:00 Outpatient Daniel_T VFP [facility] [id number] [facility] 2023-01-13 00:00:00 2023-01-13 00:00:00 Outpatient Daniel_T VFP [facility] [id number] [facility] 2023-01-13 00:00:00 2023-01-13 00:00:00 Garth Rios MD: [id number] [facility], [address], [place] [address] , Ph. [facility] - [facility] - [place] - _HOU_Shad [facility] [id number] [facility] 2022-09-10 09:39:00 2022-09-10 23:59:00 Outpatient JESSICACELSOIT [id number] 2022-08-26 10:09:00 2022-08-26 23:59:00 Outpatient JESSICACELSO KochIT [id number] 2022-08-26 10:15:00 2022-08-26 10:15:00 Office Visit CELSO LOPEZIT [facility]T [facility] LOCATION [id number] [facility] 2022-07-28 00:00:00 2022-07-28 00:00:00 Outpatient Daniel_T VFP VFP [id number] [facility] 2022-07-25 00:00:00 2022-07-25 00:00:00 Outpatient Daniel_T VFP VFP [id number] [facility] 2022-07-25 00:00:00 2022-07-25 00:00:00 Garth Rios MD: [id number], [address], [place] [address] , Ph. VFP [place] - [facility] Medical - VM_HOU_Shad ow [place] [id number] [facility] 2022-07-24 00:00:00 2022-07-24 00:00:00 Outpatient Daniel_T VFP VFP [id number] [facility] 2022-02-24 00:00:00 2022-02-24 00:00:00 Outpatient Daniel_T VFP VFP [id number] [facility] 2022-01-30 05:03:00 2022-01-30 05:03:00 Outpatient Daniel_T VFP VFP [id number] [facility] 2022-01-17 00:00:00 2022-01-17 00:00:00 Garth Rios MD: [id number], [facility] [address], [place] [address] , Ph. Daniel_T VFP [place] - [facility] - VM_HOU_Shad ow [place] [id number] [facility] 2021-12-27 15:53:00 2021-12-28 05:59:00 Outpatient Ryan jonas [facility] [place] [id number] [place] 2021-12-27 09:53:00 2021-12-27 23:59:00 Outpatient KJ LOPEZ [id number] 2021-12-25 07:43:00 2021-12-25 07:43:00 Outpatient Daniel_T VFP VFP [id number] [facility] 2021-12-23 19:05:00 2021-12-24 05:59:00 Outpt Diag Services nullFlavo r [facility] Outpatient Imaging [place] [id number] [place] 2021-12-17 11:00:00 2021-12-17 13:01:59 Office Visit Moi Estrada [facility] 4 [id number] [facility] 2021-09-10 00:00:00 2021-09-10 00:00:00 EXT [facility] LOCATION [id number] [facility] 2021-09-10 00:00:00 2021-09-10 00:00:00 EXT [facility] EXT [facility] LOCATION [id number] [facility] 2021-08-29 18:52:00 2021-08-30 04:59:00 Outpatient nullFlavo r [facility] [place] [id number] [place] 2021-08-29 13:52:00 2021-08-29 23:59:00 Outpatient KJ LOPEZ [id number] 2021-08-29 13:57:55 2021-08-29 14:12:55 Office Visit Kj Lopez [facility] LOCATION [id number] [facility] 2021-08-29 13:57:55 2021-08-29 14:12:55 Office Visit JESSICA, KJ EXT [facility] LOCATION [id number] [facility] 2021-08-08 08:55:09 2021-08-08 10:19:56 Office Visit Moi Estrada [facility] 4 [id number] [facility] 2021-08-07 13:55:00 2021-08-08 04:59:00 Outpt Diag Services nullFlavo r [facility] Outpatient Imaging [facility] [place] [facility] [id number] Tex kang [place] 2021-08-07 00:00:00 2021-08-07 00:00:00 EXT F [facility] OP Moi Estrada EXT [facility] LOCATION [id number] [facility] 2021-08-07 00:00:00 2021-08-07 00:00:00 Telephone Paulette Harris Jacqueline [facility] 4 [id number] 350.1.13.58 9.2.7.2.686 [id number] [facility] 2021-08-07 00:00:00 2021-08-07 00:00:00 [facility]T [facility] OP Dana Estradaan EXT MSRDP LOCATION 1.2.840.114 350.1.13.58 9.2.7.2.686 [id number] [facility] 2021-07-24 10:12:00 2021-07-29 21:27:00 Inpatient nullFlavo r [facility] [id number] [place] 2021-07-24 05:12:00 2021-07-29 16:27:00 Inpatient AIMEE MCGOWAN [facility] PUL [id number] [facility] 2021-07-29 00:00:00 2021-07-29 00:00:00 Telephone Fany Barrow Deanna UTP [facility] 4 1.2840.114 350.1.13.58 9.2.7.2.686 [id number] [facility] 2021-07-29 00:00:00 2021-07-29 00:00:00 Orders Only Fany Barrow, Fany UTP [facility] 4 1.2.840.114 350.1.13.58 9.2.7.2.686 [id number] [facility] 2021-07-29 00:00:00 2021-07-29 00:00:00 Telephone Barrow, Fany Barrow, Fany UTP [facility] SW [facility] [place] 4 1.2.840.114 350.1.13.58 9.2.7.2.686 [id number] [facility] 2021-07-29 00:00:00 2021-07-29 00:00:00 Telephone BarrowMelissa wilcoxnna Danial, Fayn UTP [facility] 4 1.2.840.114 350.1.13.58 9.2.7.2.686 [id number] [facility] 2021-07-29 00:00:00 2021-07-29 00:00:00 Orders Only Barrow, Fany Barrow, Fany UTP [facility] 4 1.2.840.114 350.1.13.58 9.2.7.2.686 [id number] [facility] 2021-07-29 00:00:00 2021-07-29 00:00:00 Telephone BarrowFany wilcox Danial, Fany UTP [facility] 4 1.2.840.114 350.1.13.58 9.2.7.2.686 [id number] [facility] 2021-07-24 07:13:11 2021-07-24 12:13:11 EXT [facility] OP Moi Estrada EXT MSRDP LOCATION 1.2.840.114 350.1.13.58 9.2.7.2.686 [id number] [facility] 2021-07-24 07:13:11 2021-07-24 12:13:11 EXT [facility] OP Moi Estrada EXT MSRDP LOCATION 1.2.840.114 350.1.13.58 9.2.7.2.686 [id number] [facility] 2021-07-23 17:10:00 2021-07-24 04:59:00 Outpt Diag Services nullFlavo r [facility] Outpatient Imaging [facility] [id number] [place] 2021-07-23 00:00:00 2021-07-23 00:00:00 EXT [facility] OP Moi Estrada EXT MSRDP LOCATION 1.2.840.114 350.1.13.58 9.2.7.2.686 [id number] [facility] 2021-07-23 00:00:00 2021-07-23 00:00:00 EXT [facility] OP Moi Estrada EXT MSRDP LOCATION 1.2.840.114 350.1.13.58 9.2.7.2.686 [id number] [facility] 2021-07-17 00:00:00 2021-07-17 00:00:00 EXT [facility] OP Moi Estrada EXT MSRDP LOCATION 1.2.840.114 350.1.13.58 9.2.7.2.686 [id number] [facility] 2021-07-17 00:00:00 2021-07-17 00:00:00 EXT [facility] OP Moi Estrada EXT MSRDP LOCATION 1.2.840.114 350.1.13.58 9.2.7.2.686 [id number] [facility] 2021-07-16 09:09:17 2021-07-16 10:52:16 Office Visit Moi Estrada [facility] [place] 4 1.2.840.114 350.1.13.58 9.2.7.2.686 [id number] [facility] 2021-07-16 09:09:17 2021-07-16 10:52:16 Office Visit Moi Estrada [facility] [place] 4 1.2.840.114 350.1.13.58 9.2.7.2.686 [id number] [facility] 2021-07-16 00:00:00 2021-07-16 00:00:00 Telephone Fany Barrow Deanna UTP [facility] 4 1.2.840.114 350.1.13.58 9.2.7.2.686 [id number] [facility] 2021-07-16 00:00:00 2021-07-16 00:00:00 Telephone BarrowFany Deanna [facility] [place] 4 1.2.840.114 350.1.13.58 9.2.7.2.686 [id number] [facility] 2021-06-26 18:08:00 2021-06-27 04:59:00 Outpt Diag Services nullFlavo r [facility] Outpatient [facility] [id number] [place] 2021-06-26 00:00:00 2021-06-26 00:00:00 EXT [facility] OP Moi Estrada EXT MSRDP LOCATION 1.2.840.114 350.1.13.58 9.2.7.2.686 [id number] [facility] 2021-06-26 00:00:00 2021-06-26 00:00:00 EXT [facility] OP Moi Estrada EXT MSRDP LOCATION 1.2.840.114 350.1.13.58 9.2.7.2.686 [id number] [facility] 2021-06-21 14:22:00 2021-06-22 04:59:00 Outpatient nullFlavo r [facility] [id number] [place] 2021-06-21 09:22:00 2021-06-21 23:59:00 Outpatient MOI ESTRADA [facility] [id number] [facility] 2021-06-21 05:45:00 2021-06-21 05:45:00 Outpatient Daniel_T VFP [facility] [id number] [place] 2021-06-19 00:00:00 2021-06-19 00:00:00 Telephone Fany Barrow Deanna UTP [facility] 4 1.0.114 350.1.13.58 9.2.7.2.686 [id number] [facility] 2021-06-19 00:00:00 2021-06-19 00:00:00 EXT [facility] OP Moi Estrada EXT MSRDP LOCATION 1.2.114 350.1.13.58 9.2.7.2.686 [id number] [facility] 2021-06-19 00:00:00 2021-06-19 00:00:00 EXT [facility] OP Moi Estrada EXT MSRDP LOCATION 1.2.114 350.1.13.58 9.2.7.2.686 [id number] [facility] 2021-06-18 00:00:00 2021-06-18 00:00:00 Garth Rios MD: [id number] [facility] [address], [place] [address] , Ph. Gabriel_Jamar [facility] _HOU_Shad [facility] [id number] [place] 2021-06-14 00:00:00 2021-06-14 00:00:00 Telephone Fany Barrow Deanna [facility] [place] 4 1.84.114 350.1.13.58 9.2.7.2.686 [id number] [facility] 2021-06-14 00:00:00 2021-06-14 00:00:00 Telephone Fany Barrow Deanna [facility] [place] 4 1.84.114 350.1.13.58 9.2.7.2.686 [id number] [facility] 2021-06-11 09:03:20 2021-06-11 10:29:18 Office Visit Moi Estrada [facility] [place] 4 1.84.114 350.1.13.58 9.2.7.2.686 [id number] [facility] 2021-06-05 15:19:00 2021-06-05 20:30:00 Bedded Outpatient nullFlavo r [facility] [place] [id number] 2021-06-05 10:19:00 2021-06-05 15:30:00 Outpatient KJ LOPEZ [facility] CAR [id number] [facility] 2021-06-04 13:24:03 2021-06-04 14:16:53 Office Visit Mk Porter [facility] 1.84.114 350.1.13.58 9.2.7.2.686 [id number] [facility] 2021-05-23 14:59:00 2021-05-24 04:59:00 Outpatient nullFlavo r [facility] [id number] [facility] 2021-05-23 09:59:00 2021-05-23 23:59:00 Outpatient KJ LOPEZ [facility] 2021-05-23 11:22:49 2021-05-23 12:23:40 Office Visit Moi Estrada [facility] [place] 4 1.84.114 350.1.13.58 9.2.7.2.686 [id number] [facility] 2021-05-21 00:00:00 2021-05-21 00:00:00 Telephone Mk Porter [facility] 1.84.114 350.1.13.58 9.2.7.2.686 [id number] [facility] 2021-05-11 21:02:00 2021-05-12 04:59:00 Outpatient nullFlavo r [facility] [id number] [facility] 2021-05-11 16:02:2021-05-11 23:59:00 Outpatient KJ LOPEZ [facility] [facility] 2021-05-09 00:00:00 2021-05-09 00:00:00 EXT [facility] OP Kj Lopez EXT MSRDP LOCATION 1.2.840.114 350.1.13.58 9.2.7.2.686 [id number] [facility] 2021-05-09 00:00:00 2021-05-09 00:00:00 EXT [facility] OP Kj Lopez EXT MSRDP LOCATION 1.2.840.114 350.1.13.58 9.2.7.2.686 [id number] [facility] 2021-04-25 00:00:00 2021-04-25 00:00:00 Orders Only Doctor Unassigned, [place] [facility] 1.2.840.114 350.1.13.10 4.2.7.2.686 [id number] [facility] 2021-04-25 00:00:00 2021-04-25 00:00:00 Orders Only Doctor Unassigned, [place] [facility] 1.2.840.114 350.1.13.10 4.2.7.2.686 [id number] 2021-04-18 12:29:00 2021-04-18 17:55:00 Bedded Outpatient [facility] [id number] [place] 2021-04-18 07:29:00 2021-04-18 12:55:00 Outpatient KJ LOPEZ [id number] [facility] 2021-04-10 00:00:00 2021-04-10 00:00:00 Orders Only Doctor Unassigned, [place] [facility] 1.2.840.114 350.1.13.10 4.2.7.2.686 [id number] [facility] 2021-04-10 00:00:00 2021-04-10 00:00:00 Orders Only Doctor Unassigned, [place] [facility] 1.2840.114 350.1.13.10 4.2.7.2.686 [id number] 2021-03-22 15:30:00 2021-03-23 04:59:00 Outpatient marissaYosio jose luis [facility] [place] [id number] [place] 2021-03-22 10:30:00 2021-03-22 23:59:00 Outpatient JESSICA KJ [id number] 2021-03-13 14:00:00 2021-03-13 14:00:00 Outpatient R JUAREZ GAO [facility] [id number] [facility] 2021-03-11 10:00:00 2021-03-11 10:00:00 Outpatient RAEANN JEFFERS [facility] [id number] [facility] 2021-01-28 00:00:00 2021-01-28 00:00:00 Telephone Murray Juarez [facility] Building 1..840.114 350.1.13.10 4.2.7.2.686 [id number] [facility] 2021-01-28 00:00:00 2021-01-28 00:00:00 Telephone Murray biuj [facility] 1.2.840.114 350.1.13.10 4.2.7.2.686 [id number] 2021-01-25 15:00:00 2021-01-25 15:00:00 Outpatient R MURRAY [facility] [id number] [facility] 2021-01-23 00:00:00 2021-01-23 00:00:00 Patient Outreach Huy Judge [facility] 1.2.840.114 350.1.13.10 4.2.7.2.686 [id number] [facility] 2021-01-23 00:00:00 2021-01-23 00:00:00 Patient Outreach Huy Judge [facility] 1.2.840.114 350.1.13.10 4.2.7.2.686 [id number] 2021-01-09 16:00:00 2021-01-09 16:00:00 Outpatient Jose Luis GAO [facility] [id number] [facility] 2021-01-09 14:27:31 2021-01-09 14:57:31 Office Visit Murray [facility] Office Building 1.2840.114 350.1.13.10 4.2.7.2.686 [id number] [facility] 2021-01-09 14:27:31 2021-01-09 14:57:31 Office Visit Murray [facility] Medical Office Building 1.2840.114 350.1.13.10 4.2.7.2.686 [id number] 2020-12-21 15:00:00 2020-12-21 15:00:00 Outpatient Jose Luis VILLALOBOSSEAU [facility] [id number] [facility] 2020-12-21 13:50:24 2020-12-21 14:05:24 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, [facility]c-Bls Lab Murray biju [facility] 1.2840.114 350.1.13.10 4.2.7.2.686 [id number] [facility] 2020-12-13 16:20:50 2020-12-13 16:35:50 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, Clc-Bls Lab Blaise Crouch [facility] Medical Office Building 1.2840.114 350.1.13.10 4.2.7.2.686 [id number] [facility] 2020-12-13 15:03:01 2020-12-13 16:19:17 Office Visit Cash Crouchudesmer Guillen [facility] Medical Office Building 1.2.840.114 350.1.13.10 4.2.7.2.686 [id number] [facility] 2020-12-13 15:15:00 2020-12-13 15:15:00 Outpatient R BLAISE CROUCH [facility] [id number] [facility] 2020-11-23 00:00:00 2020-11-23 00:00:00 Refill Murray [facility] Medical Office Building 1.2.840.114 350.1.13.10 4.2.7.2.686 [id number] [facility] 2020-10-18 00:00:00 2020-10-18 00:00:00 Patient Outreach Cristina Stephens Jose 1.2.840.114 350.1.13.10 4.2.7.2.686 [id number] [facility] 2020-10-10 16:44:39 2020-10-10 16:59:39 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, Clc-Bls Lab Marcokirtjustynazee [facility] Medical Office Building 1.2840.114 350.1.13.10 4.2.7.2.686 [id number] [facility] 2020-10-10 15:37:28 2020-10-10 16:46:12 Office Visit Murray biju [facility] Office Building 1.284.114 350.1.13.10 4.2.7.2.686 [id number] [facility] 2020-10-10 16:00:00 2020-10-10 16:00:00 Outpatient R JUAREZ GAO [facility] [id number] [facility] 2020-10-10 00:00:00 2020-10-10 00:00:00 Orders Only Doctor Unassigned, [place] [facility] 1.2.840.114 350.1.13.10 4.2.7.2.686 [id number] [facility] 2020-10-08 03:15:00 2020-10-08 03:15:00 Outpatient Gabriel_Jamar VFP VF [id number] [facility] 2020-10-04 00:00:00 2020-10-04 00:00:00 Transition of Care Petrona Padilla 1.2.840.114 350.1.13.10 4.2.7.2.686 [id number] [facility] 2020-10-04 00:00:00 2020-10-04 00:00:00 Transition of Care Maya Jessica 1.2.840.114 350.1.13.10 4.2.7.2.686 [id number] [facility] 2020-09-27 12:25:00 2020-10-03 20:29:00 Hospital Encounter Elisabet Deshpande Jose C [facility] 1.2.840.114 350.1.13.10 4.2.7.2.686 [id number] [facility] 2020-09-27 12:06:00 2020-09-27 12:06:[address] [facility] ERT [id number] [facility] Results Test Description Test Time Test Comments Results Result Co mments Source [facility] [id number] 00:52:54SEE ForMune Hemoglobin A1c measurement device [id number] 09:30:58* Test Item Value Reference Range Interpretation Comme nts Hemoglobin A1c/Hemoglobin.to rocky in Blood (test code = 4548-4) 6.5 % 4.0-6.4 [facility] [Mass/volume] in Capillary [id number] 09:26:40* Test Item Value Reference Range Interpretation Comme nts Blood Glucose: mg/dl (test c ode = Blood Glucose: mg/dl) 131 [facility] PracticeHemoglobin A1c measurement device [id number] 10:27:06* Test Item Value Reference Range Interpretation Comme nts Hemoglobin A1c/Hemoglobin.to rocky in Blood (test code = 4548-4) 6.9 % 4.0-6.4 [facility] PracticeGlucose [Mass/volume] in Capillary [id number] 10:21:18* Test Item Value Reference Range Interpretation Comme nts Blood Glucose: mg/dl (test c ode = Blood Glucose: mg/dl) 153 [facility] CenterHem[facility] A1c measurement device [id number] 13:53:22* Test Item Value Reference Range Interpretation Comme nts Hemoglobin A1c/Hemoglobin.to rocky in Blood (test code = 4548-4) 7.0 % 5.7-6.4 [facility] PracticeGlucose [Mass/volume] in Capillary [id number] 13:49:10* Test Item Value Reference Range Interpretation Comme nts Blood Glucose: mg/dl (test c ode = Blood Glucose: mg/dl) 149 [facility] CenterHem[facility] A1c measurement device [id number] 10:40:31* Test Item Value Reference Range Interpretation Comme nts Hemoglobin A1c/Hemoglobin.to rocky in Blood (test code = 4548-4) 6.7 % 5.7-6.4 [facility] PracticeGlucose [Mass/volume] in Capillary [id number] 10:37:30* Test Item Value Reference Range Interpretation Comme nts Blood Glucose: mg/dl (test c ode = Blood Glucose: mg/dl) 149 [facility] Center[facility]em[facility] A1c measurement device [id number] 08:51:25* Test Item Value Reference Range Interpretation Comme nts Hemoglobin A1C Fingerstick: (test code = Hemoglobin A1C Fingerstick:) 6.2 [facility] PracticeGlucose [Mass/volume] in Capillary loiwf4511-89-22 08:51:14* Test Item Value Reference Range Interpretation Comme nts Blood Glucose: mg/dl (test c ode = Blood Glucose: mg/dl) 127 [facility] CenterCHEM [id number] 09:59:00* Test Item Value Reference Range Interpretation Comme nts Glucose Lvl (test code = Glucose Lvl) 101 70-99 [facility]WqjcdcoQUBKOOKWGF8978-84-14 09:59:00* Test Item Value Reference Range Interpretation Comme nts Segs (test code = Segs) 53.1 45.0-75.0 [facility] [id number] 15:37:00* Test Item Value Reference Range Interpretation Comme nts Glucose Lvl (test code = Glucose Lvl) 190 70- [id number] 15:37:00* Test Item Value Reference Range Interpretation Comme nts WBC X 10x3 (test code = WBC X 10x3) 7.4 3.7-10.4 [facility]2021-09-11 07:38:00* Test Item Value Reference Range Interpretation Comme nts Glucose Lvl (test code = Glucose Lvl) 127 - [facility]manLhpzmrpODENJGPHPL1225-11-07 07:38:00* Test Item Value Reference Range Interpretation Comme nts Segs (test code = Segs) 63.3 45.0-75.0 [facility] [id number] 07:38:00* Test Item Value Reference Range Interpretation Comme nts Ca Ion WB (test code = Ca Ion WB) 1.15 1.05-1.25 [facility] HospitalSlrroheOGDOBMJCFVNY6755-96-32 21:20:00* Test Item Value Reference Range Interpretation Comme nts Potassium Lvl (test code = P otassium Lvl) 3.8 3.5-5.1 [facility] [id number] 07:51:00* Test Item Value Reference Range Interpretation Comme nts Glucose Lvl (test code = Glucose Lvl) 178 - [facility]HaoxevwHMRFINMGJM7074-22-83 07:51:00* Test Item Value Reference Range Interpretation Comme nts WBC X 10x3 (test code = WBC X 10x3) 8.9 3.7-10.4 [facility] SpringsROID [id number] 07:51:00* Test Item Value Reference Range Interpretation Comme nts Ca Ion WB (test code = Ca Ion WB) 1.21 1.05-1.25 [facility] [place] [id number] 02:59:00* Test Item Value Reference Range Interpretation Comme nts Lactic Acid Lvl (test code = Lactic Acid Lvl) 1.2 0.5-2.2 [facility] [id number] 20:42:00* Test Item Value Reference Range Interpretation Comme nts Lactic Acid Lvl (test code = Lactic Acid Lvl) 3.4 0.5-2.2 [facility] [place] [id number] 14:34:00* Test Item Value Reference Range Interpretation Comme nts Lactic Acid Lvl (test code = Lactic Acid Lvl) 6.8 0.5-2.2 [facility]manGuimlprXXRTDBKHVK2657-00-27 14:34:00* Test Item Value Reference Range Interpretation Comme nts Segs (test code = Segs) 83.9 45.0-75.0 [facility] [id number] 14:34:00* Test Item Value Reference Range Interpretation Comme nts Ca Ion WB (test code = Ca Ion WB) 1.19 1.05-1.25 [facility]manSqdmlrhPGLVFZJUWF3566-47-87 07:44:00* Test Item Value Reference Range Interpretation Comme nts POC Activated Clotting Time (test code = POC Activated Clotting Time) 154 s [facility] [place] [id number] 07:19:00* Test Item Value Reference Range Interpretation Comme nts Total Protein (test code = T otal Protein) 6.1 6.4-8.4 [facility]manZaojxyeCVSWICKPEE9785-43-16 07:19:00* Test Item Value Reference Range Interpretation Comme nts PT (test code = PT) 16.4 s 12.0-14.7 [facility]manOixkutrYCNVOXOSQA0990-35-18 01:01:00* Test Item Value Reference Range Interpretation Comme nts PTT (test code = PTT) 33.1 s 22.9-35.8 [facility] HospitalGILUPI [id number] 20:48:00* Test Item Value Reference Range Interpretation Comme nts Total Protein (test code = T otal Protein) 5.9 6.4-8.4 [facility]manHupfkkuPEAIFDSVFK2480-61-66 20:44:00* Test Item Value Reference Range Interpretation Comme nts PTT (test code = PTT) 29.3 s 22.9-35.8 [facility] [id number] 19:21:00* Test Item Value Reference Range Interpretation Comme nts FFP product (test code = FFP product) Product available (07/24/21 2:21 PM) [facility]villeBACTERIAL - [id number] 14:50:00* Test Item Value Reference Range Interpretation Comme nts MRSA by PCR (test code = MRSA by PCR) Negative (07/23/21 9:50 AM) [facility] [employer] [id number] 14:50:00* Test Item Value Reference Range Interpretation Comme nts ABO/Rh (test code = ABO/Rh) A POS [facility]villeCnwztmoKWUIAHDVHM3337-40-45 14:50:00* Test Item Value Reference Range Interpretation Comme nts PTT (test code = PTT) 31.6 s 22.9-35.8 [facility] BrownsvilleNuybpmnHSHHVB8974-80-98 14:50:00* Test Item Value Reference Range Interpretation Comme nts Trig (test code = Trig) 118 [facility] BrownsvilleSPECIAL WFYLESRJK9062-96-94 14:50:00* Test Item Value Reference Range Interpretation Comme nts Hgb A1C (test code = Hgb A1C) 7.2 [facility] [id number] 14:47:00* Test Item Value Reference Range Interpretation Comme nts RBC product (test code = RBC product) Product available (07/23/21 9:47 AM) [facility] BrownsvilleVxeonviPCBQXTXQIT6824-08-24 13:23:00* Test Item Value Reference Range Interpretation Comme nts Coronavirus (COVID-19) JANNA (test code = Coronavirus (COVID-19) JANNA) Not Detected (07/23/21 8:23 AM) [facility] HospitalBrightpearlBreathing capacity zsei5960-40-81 05:00:00SEE IMAGELINKInterface, [facility] Imaging Results - 07/23/2021 12:02 PM CDTFormatting of this note mightbe different from the original.SEE IMAGELINKUT HealthELECTROLYTES 2021-06-05 15:47:00* Test Item Value Reference Range Interpretation Comme nts POC Sodium (test code = POC Sodium) 141 135-145 [facility]villeCHEM [id number] 15:37:00* Test Item Value Reference Range Interpretation Comme nts Glucose Lvl (test code = Glucose Lvl) 196 70-99 [id number] 15:37:00* Test Item Value Reference Range Interpretation Comme nts WBC (test code = WBC) 7.7 3.7-10.4 [facility] [id number] 22:03:00* Test Item Value Reference Range Interpretation Comme nts POC Creatinine (test code = POC Creatinine) 1.0 0.5-1.4 [facility] Hos[id number] 13:28:00* Test Item Value Reference Range Interpretation Comme nts POC Sodium (test code = POC Sodium) 140 135-145 [facility] [id number] 12:54:00* Test Item Value Reference Range Interpretation Comme nts Glucose Lvl (test code = Glucose Lvl) 158 70-99 [id number] 12:54:00* Test Item Value Reference Range Interpretation Comme nts WBC (test code = WBC) 6.9 3.7-10.4 [id number] 18:43:00* Test Item Value Reference Range Interpretation Comme nts Coronavirus (COVID-19) JANNA (test code = Coronavirus (COVID-19) JANNA) Not Detected (04/16/21 1:43 PM) [facility] GLUCOSE (AUTOMATED)2020-10-03 22:57:00* Test Item Value Reference Range Interpretation Comme nts POCT GLU (test code = [id number]) 233 mg/dL 70-110 H Notified Provide r Lab Interpretation (test code = 90210-3) Abnormal [facility] GLUCOSE (AUTOMATED)2020-10-03 21:05:00* Test Item Value Reference Range Interpretation Comme nts POCT GLU (test code = 3558810248) 282 mg/dL 70-110 H Lab Interpretation (test cod e = 86445-4) Abnormal [facility] GLUCOSE (AUTOMATED)2020-10-03 20:12:00* Test Item Value Reference Range Interpretation Comme nts POCT GLU (test code = 3832324843) 307 mg/dL 70-110 H Lab Interpretation (test cod e = 40597-5) Abnormal [facility] GLUCOSE (AUTOMATED)2020-10-03 17:27:00* Test Item Value Reference Range Interpretation Comme nts POCT GLU (test code = 0290123017) 302 mg/dL 70-110 H Notified Provide r Lab Interpretation (test code = 78195-8) [facility] 13:41:00* Test Item Value Reference Range Interpretation Comme [facility] POCT GLU (test code = 9876110684) 140 mg/dL 70-110 H Notified Provide r Lab Interpretation (test code = 56400-0) [id number] 12:14:00* Test Item Value Reference Range Interpretation Comme [facility] NT-proBNP (test code = 8776664198) 722 pg/mL See_Comment H [Automated message] The system which generated this result transmitted reference range: <=125. The reference range was not used to interpret this result as normal/abnormal. KARSON (test code = KARSON) Biotin has been reported to cause a negative bias, interpret results relative to patient's use of biotin. Lab Interpretation (test code = 67045-3) Abnormal [facility] METABOLIC PANEL (NA, K, CL, CO2, GLUCOSE, BUN, CREATININE, CA)2020-10-03 12:01:00* Test Item Value Reference Range Interpretation Comme [facility] NA (test code = 1377321209) 135 mmol/L 135-145 K (test code = 2927568769) 3.5 mmol/L 3.5-5 CL (test code = 3389246118) 102 mmol/L 98-108 CO2 TOTAL (test code = 3345821661) 30 mmol/L 23-31 AGAP (test code = 7234022608) 2-16 BUN (test code = 6283487214) 28 mg/dL 7-23 H GLUCOSE (test code = 2726232457) 140 mg/dL 70-110 H CREATININE (test code = 6771223789) 0.96 mg/dL 0.6-1.25 CALCIUM (test code = 7018773726) 8.6 mg/dL 8.6-10.6 eGFR Calculation (Non-) (test code = 5372808131) mL/min/1.73m2 eGFR Calculation () (test code = 8817422077) mL/min/1.73m2 KARSON (test code = KARSON) Association [...] imaging tests). Lab Interpretation (test code = 29779-1) [facility] 12:01:00* Test Item Value Reference Range Interpretation Comme nts MAGNESIUM (test code = 5091112012) 2.2 mg/dL 1.7-2.4 Lab Interpretation (test cod e = 91289-3) [facility] COVID [id number] 11:39:00COVID DMT InterpretationInterpretation/Recommendations: Molecular NAAT Test Results [...] a nasopharyngeal sample, there is approximately a [id number] chance that the patient was infected and [...] based upon aggregate COVID-19 test results pooledfrom [facility]. They apply to the following tests offered at [facility] and assume the acceptable specimen type(s) were used: A. Tests for the Identification of SARS-CoV-2 RNA (Molecular NAAT Tests):SARS-CoV-2 PCR assays including [employer] Aptima, [employer]at[place] Fusion, Mullins RealTime, and Enthrill Distribution Xpert Xpress. SARS-CoV-2 Rapid ID NOW by the ID NOW assay.? B. Tests for the Identification of SARS-CoV-2 Antibodies: Chemiluminescent immunoassays including Access SARS-CoV-2 IgM (DXI 600), StepOutS Loiv-HKBD-RsL-2 IgG (Vitros 5600 and Vitros 3600), and Mullins SARS-CoV-2 IgG (WIND TURBINE MECHANIC I System). ?These interpretations are autopopulated into [employer] based on computerized algorithms matching an interpretation code to the patient's set of test results, and a clinical pathologist evaluates the comments for accuracy. However, these comments do not consider testing a patient may have had outside of the [facility] system. If results for COVID-19 [...] bronchoalveolar lavage fluid (BAL), tracheal aspirate, etc.). ?[facility] LABORATORY SERVICESCOVID QlbjvazWIBT-ZkB-4 Rapid ID NOW (no units) ? ? Date ? Value ? 09/27/2020 ? Not Detected ? [facility]2020-10-03 02:18:00* Test Item Value Reference Range Interpretation Comme nts POCT GLU (test code = 4180540831) 253 mg/dL 70-110 H Lab Interpretation (test cod e = 96813-6) Abnormal [facility] GLUCOSE (AUTOMATED)2020-10-03 00:29:00* Test Item Value Reference Range Interpretation Comme nts POCT GLU (test code = 9785251808) 203 mg/dL 70-110 H Notified Provide r Lab Interpretation (test code = 47371-4) Abnormal [facility] GLUCOSE (AUTOMATED)2020-10-02 20:08:00* Test Item Value Reference Range Interpretation Comme nts POCT GLU (test code = 5995460004) 207 mg/dL 70-110 H Lab Interpretation (test cod e = 26435-0) Abnormal [facility] GLUCOSE (AUTOMATED)2020-10-02 16:11:00* Test Item Value Reference Range Interpretation Comme nts POCT GLU (test code = 5329211423) 230 mg/dL 70-110 H Lab Interpretation (test cod e = 47259-8) Abnormal [facility] GLUCOSE (AUTOMATED)2020-10-02 14:12:00* Test Item Value Reference Range Interpretation Comme nts POCT GLU (test code = 5398689556) 165 mg/dL 70-110 H Notified Provide r Lab Interpretation (test code = 34607-3) Abnormal [facility] METABOLIC PANEL (NA, K, CL, CO2, GLUCOSE, BUN, CREATININE, CA)2020-10-02 13:48:00* Test Item Value Reference Range Interpretation Comme nts NA (test code = 3026606924) 136 mmol/L 135-145 K (test code = 7121878661) 4.0 mmol/L 3.5-5 CL (test code = 9626334952) 98 mmol/L 98-108 CO2 TOTAL (test code = 4548793575) 31 mmol/L 23-31 AGAP (test code = 4365097026) 2-16 BUN (test code = 2696150519) 29 mg/dL 7-23 H GLUCOSE (test code = 8781904705) 148 mg/dL 70-110 H CREATININE (test code = 0698848313) 1.11 mg/dL 0.6-1.25 CALCIUM (test code = 8368046224) 8.9 mg/dL 8.6-10.6 eGFR Calculation (Non-) (test code = 1290213135) mL/min/1.73m2 eGFR Calculation () (test code = 5073402737) mL/min/1.73m2 KARSON (test code = KARSON) Association [...] imaging tests). Lab Interpretation (test code = 27010-1) [facility]2020-[facility]-17 13:48:00* Test Item Value Reference Range Interpretation Comme nts MAGNESIUM (test code = 9011914268) 2.2 mg/dL 1.7-2.4 Lab Interpretation (test cod e = 93979-7) Normal [facility] GLUCOSE (AUTOMATED)2020-10-02 10:37:00* Test Item Value Reference Range Interpretation Comme nts POCT GLU (test code = 0911230435) 150 mg/dL 70-110 H Lab Interpretation (test cod e = 10146-1) Abnormal [facility] GLUCOSE (AUTOMATED)2020-10-02 06:07:00* Test Item Value Reference Range Interpretation Comme nts POCT GLU (test code = 7665742101) 176 mg/dL 70-110 H Lab Interpretation (test cod e = 49336-2) Abnormal [facility] GLUCOSE (AUTOMATED)2020-10-02 02:30:00* Test Item Value Reference Range Interpretation Comme nts POCT GLU (test code = 7763747698) 246 mg/dL 70-110 H Lab Interpretation (test cod e = 75941-1) Abnormal [facility] GLUCOSE (AUTOMATED)2020-10-01 23:06:00* Test Item Value Reference Range Interpretation Comme nts POCT GLU (test code = 3544389938) 243 mg/dL 70-110 H Lab Interpretation (test cod e = 08538-8) [facility] MYOCARDIAL VIABILITY [id number] 22:15:07Impression: 1) Evidence of complete viability in [...] mL; ESV = 180 mL; EF= 21%. [facility], Radiant Results Inft User - [...] by Dr Rey interpretation by Reji Randall MD.[facility]2020-10-01 16:35:00 * Test Item Value Reference Range Interpretation Comme nts POCT GLU (test code = 4407934812) 229 mg/dL 70-110 H Lab Interpretation (test cod e = 85793-0) [facility]2020-10-01 13:40:00* Test Item Value Reference Range Interpretation Comme [facility] POCT GLU (test code = 8260626729) 244 mg/dL 70-110 H Lab Interpretation (test cod e = 69497-2) Abnormal [facility] METABOLIC PANEL (NA, K, CL, CO2, GLUCOSE, BUN, CREATININE, CA)2020-10-01 12:51:00* Test Item Value Reference Range Interpretation Comme [facility] NA (test code = 8244625342) 134 mmol/L 135-145 L K (test code = 4177618224) 3.9 mmol/L 3.5-5 CL (test code = 1880633531) 97 mmol/L 98-108 L CO2 TOTAL (test code = 8348990873) 32 mmol/L 23-31 H AGAP (test code = 2991657936) 2-16 BUN (test code = 2086752508) 23 mg/dL 7-23 GLUCOSE (test code = 0897674828) 237 mg/dL 70-110 H CREATININE (test code = 7111660931) 1.01 mg/dL 0.6-1.25 CALCIUM (test code = 4269546428) 8.6 mg/dL 8.6-10.6 eGFR Calculation (Non-) (test code = 1309697303) mL/min/1.73m2 eGFR Calculation () (test code = 4403808875) mL/min/1.73m2 KARSON (test code = KARSON) Association [...] imaging tests). Lab Interpretation (test code = 27076-5) [facility] Test Item Value Reference Range Interpretation Comme nts MAGNESIUM (test code = 2170327609) 1.9 mg/dL 1.7-2.4 Lab Interpretation (test cod e = 69703-6) Normal [facility] GLUCOSE (AUTOMATED)2020-10-01 10:40:00* Test Item Value Reference Range Interpretation Comme nts POCT GLU (test code = 3052277568) 230 mg/dL 70-110 H Lab Interpretation (test cod e = 09084-7) Abnormal [facility] GLUCOSE (AUTOMATED)2020-10-01 06:00:00* Test Item Value Reference Range Interpretation Comme nts POCT GLU (test code = 2610061187) 281 mg/dL 70-110 H Lab Interpretation (test cod e = 90252-6) Abnormal [facility] GLUCOSE (AUTOMATED)2020-10-01 01:18:00* Test Item Value Reference Range Interpretation Comme nts POCT GLU (test code = 3872717759) 201 mg/dL 70-110 H Lab Interpretation (test cod e = 51672-7) Abnormal [facility] GLUCOSE (AUTOMATED)2020-09-30 22:45:00* Test Item Value Reference Range Interpretation Comme nts POCT GLU (test code = 8433357200) 239 mg/dL 70-110 H Lab Interpretation (test cod e = 83235-9) Abnormal [facility] GLUCOSE (AUTOMATED)2020-09-30 18:42:00* Test Item Value Reference Range Interpretation Comme [facility] POCT GLU (test code = 1770085041) 305 mg/dL 70-110 H Notified Provide r Lab Interpretation (test code = 08283-3) Abnormal [facility] GLUCOSE (AUTOMATED)2020-09-30 15:23:00* Test Item Value Reference Range Interpretation Comme [facility] POCT GLU (test code = 6387444231) 259 mg/dL 70-110 H Lab Interpretation (test cod e = 54920-2) Abnormal [facility] METABOLIC PANEL (NA, K, CL, CO2, GLUCOSE, BUN, CREATININE, CA)2020-09-30 11:28:00* Test Item Value Reference Range Interpretation Comme [facility] NA (test code = 0069719083) 133 mmol/L 135-145 L K (test code = 0322677139) 4.1 mmol/L 3.5-5 CL (test code = 0745626575) 98 mmol/L 98-108 CO2 TOTAL (test code = 8324630777) 29 mmol/L 23-31 AGAP (test code = 6902179523) 2-16 BUN (test code = 5631097510) 23 mg/dL 7-23 GLUCOSE (test code = 0288553151) 275 mg/dL 70-110 H CREATININE (test code = 5530910940) 0.91 mg/dL 0.6-1.25 CALCIUM (test code = 0099466100) 8.6 mg/dL 8.6-10.6 eGFR Calculation (Non-) (test code = 1469963783) mL/min/1.73m2 eGFR Calculation () (test code = 1264404453) mL/min/1.73m2 KARSON (test code = KARSON) Association [...] imaging tests). Lab Interpretation (test code = 96058-2) [facility]2020-[facility]-15 11:28:00* Test Item Value Reference Range Interpretation Comme nts MAGNESIUM (test code = 2905907628) 1.9 mg/dL 1.7-2.4 Lab Interpretation (test cod e = 53230-5) [facility]for use with Heparin Drip)2020-09-30 11:23:00* Test Item Value Reference Range Interpretation Comme nts APTT Patient (test code = 3173-2) See_Comment [Automated [employer]auf[employer]] The system which generated this result transmitted reference range: 26 - 36 Seconds. The reference range was not used to interpret this result as normal/abnormal. Lab Interpretation (test code = 44493-7) Normal [facility] GLUCOSE (AUTOMATED)2020-09-30 10:54:00* Test Item Value Reference Range Interpretation Comme nts POCT GLU (test code = 7948612657) 267 mg/dL 70-110 H Lab Interpretation (test cod e = 83188-7) Abnormal [facility] GLUCOSE (AUTOMATED)2020-09-30 05:38:00* Test Item Value Reference Range Interpretation Comme nts POCT GLU (test code = 8387073796) 217 mg/dL 70-110 H Lab Interpretation (test cod e = 16386-6) Abnormal [facility] GLUCOSE (AUTOMATED)2020-09-30 03:07:00* Test Item Value Reference Range Interpretation Comme nts POCT GLU (test code = 6143505269) 234 mg/dL 70-110 H Lab Interpretation (test cod e = 10071-7) Abnormal [facility] GLUCOSE (AUTOMATED)2020-09-30 00:33:00* Test Item Value Reference Range Interpretation Comme nts POCT GLU (test code = 9038597654) 292 mg/dL 70-110 H Notified Provide r Lab Interpretation (test code = 24396-4) Abnormal [facility] GLUCOSE (AUTOMATED)2020-09-29 21:54:00* Test Item Value Reference Range Interpretation Comme nts POCT GLU (test code = 1711978110) 414 mg/dL 70-110 H Lab Interpretation (test cod e = 01695-2) Abnormal [facility] GLUCOSE (AUTOMATED)2020-09-29 18:31:00* Test Item Value Reference Range Interpretation Comme nts POCT GLU (test code = 8108659477) 341 mg/dL 70-110 H Notified Provide r Lab Interpretation (test code = 45715-7) Abnormal [facility] GLUCOSE (AUTOMATED)2020-09-29 14:49:00* Test Item Value Reference Range Interpretation Comme nts POCT GLU (test code = 6198941921) 146 mg/dL 70-110 H Lab Interpretation (test cod e = 05319-4) Abnormal [facility] GLUCOSE (AUTOMATED)2020-09-29 11:44:00* Test Item Value Reference Range Interpretation Comme nts POCT GLU (test code = 5593137521) 139 mg/dL 70-110 H Lab Interpretation (test cod e = 13073-7) [facility] HEM[facility]GLOBIN (A1C)2020-09-29 09:15:00* Test Item Value Reference Range Interpretation Comme nts HGB A1C (test code = 4548-4) 8.8 % 4-6 H Lab Interpretation (test cod e = 33408-4) [facility]rop[facility] [id number] 08:42:00* Test Item Value Reference Range Interpretation Comme nts TROPONIN I (test code = 6740463116) 0.101 ng/mL See_Comment H [Automated message] The [...] biotin. ? Lab Interpretation (test code = 20270-9) Abnormal [facility] METABOLIC PANEL (NA, K, CL, CO2, GLUCOSE, BUN, CREATININE, CA)2020-09-29 08:25:00* Test Item Value Reference Range Interpretation Comme nts NA (test code = 8060495244) 135 mmol/L 135-145 K (test code = 5326406205) 3.9 mmol/L 3.5-5 CL (test code = 7719981813) 100 mmol/L 98-108 CO2 TOTAL (test code = 8690061867) 32 mmol/L 23-31 H AGAP (test code = 9496094821) 2-16 BUN (test code = 7125693273) 17 mg/dL 7-23 GLUCOSE (test code = 9176672077) 213 mg/dL 70-110 H CREATININE (test code = 4719861250) 0.76 mg/dL 0.6-1.25 CALCIUM (test code = 1707969936) 8.8 mg/dL 8.6-10.6 eGFR Calculation (Non-) (test code = 4620264466) mL/min/1.73m2 eGFR Calculation () (test code = 3904533515) mL/min/1.73m2 KARSON (test code = KARSON) Association [...] imaging tests). Lab Interpretation (test code = 22227-7) [facility]2020-11-14 08:25:00* Test Item Value Reference Range Interpretation Comme [facility] MAGNESIUM (test code = 3693296973) 2.0 mg/dL 1.7-2.4 Lab Interpretation (test cod e = 90446-9) [facility] ([facility] use with Heparin Drip)2020-09-29 08:02:00* Test Item Value Reference Range Interpretation Comme nts APTT Patient (test code = 3173-2) See_Comment H [Automated Chauf[employer]ur [employer]rive] The system which generated this result transmitted reference range: 26 - 36 Seconds. The reference range was not used to interpret this result as normal/abnormal. Lab Interpretation (test code = 22594-0) Abnormal [facility] GLUCOSE (AUTOMATED)2020-09-29 07:46:00* Test Item Value Reference Range Interpretation Comme nts POCT GLU (test code = 3565643760) 213 mg/dL 70-110 H Lab Interpretation (test cod e = 80256-7) Abnormal [facility] GLUCOSE (AUTOMATED)2020-09-29 04:38:00* Test Item Value Reference Range Interpretation Comme nts POCT GLU (test code = 8173734421) 335 mg/dL 70-110 H Lab Interpretation (test cod e = 18010-6) Abnormal [facility] GLUCOSE (AUTOMATED)2020-09-29 01:41:00* Test Item Value Reference Range Interpretation Comme nts POCT GLU (test code = 0247239037) 326 mg/dL 70-110 H Lab Interpretation (test cod e = 41563-9) [facility] use with Heparin Drip)2020-09-28 23:01:00* Test Item Value Reference Range Interpretation Comme nts APTT Patient (test code = 3173-2) See_Comment [Automated messa ge] The system which generated this result transmitted reference range: 26 - 36 Seconds. The reference range was not used to interpret this result as normal/abnormal. Lab Interpretation (test code = 46492-6) Normal [facility] GLUCOSE (AUTOMATED)2020-09-28 13:53:00* Test Item Value Reference Range Interpretation Comme nts POCT GLU (test code = 7061933364) 192 mg/dL 70-110 H Lab Interpretation (test cod e = 49742-1) [facility]normal [facility] NortheastTroponin [id number] 11:02:00* Test Item Value Reference Range Interpretation Comme nts TROPONIN I (test code = 6315255170) 0.184 ng/mL See_Comment H [Automated message] The [...] biotin. ? Lab Interpretation (test code = 36157-0) [facility] NortheastLIPID PANEL (12317)(TOTAL CHOLESTEROL, TRIGLYCERIDES, HDL)2020-09-28 10:35:00* Test Item Value Reference Range Interpretation Comme nts CHOL (test code = 1129953526) 150 mg/dL 120-200 HDL (test code = 0275158875) 40 mg/dL >40 L HDLC RATIO (test code = 1153442730) See_Comment [[employer]] The system which generated this result transmitted reference range: <=5.0. The reference range was not used to interpret this result as normal/abnormal. TRIG (test code = 1882839071) 134 mg/dL 30-170 LDL CHOL (test code = 73976-2) 83 mg/dL See_Comment [Automated [employer]auf[employer]ur [employer]rive] The system which generated this result transmitted reference range: <=160. The reference range was not used to interpret this result as normal/abnormal. VLDL (test code = 6166906025) 27 mg/dL 5-60 Lab Interpretation (test code = 61908-3) [facility] use with Heparin Drip)2020-09-28 09:57:00* Test Item Value Reference Range Interpretation Comme nts APTT Patient (test code = 3173-2) See_Comment H [Automated Chauf[employer]ur [employer]rive] The system which generated this result transmitted reference range: 26 - 36 Seconds. The reference range was not used to interpret this result as normal/abnormal. Lab Interpretation (test code = 14436-2) [facility]ATED[facility]2020-09-28 06:35:00* Test Item Value Reference Range Interpretation Comme [facility] POCT GLU (test code = 2402507660) 271 mg/dL 70-110 H Lab Interpretation (test cod e = 40110-4) [facility] NortheastTroponin [id number] 05:06:00* Test Item Value Reference Range Interpretation Comme [facility] TROPONIN I (test code = 2850799325) 0.189 ng/mL See_Comment H [Automated message] The [...] biotin. ? Lab Interpretation (test code = 38433-9) [facility] ([facility] use with Heparin Drip)2020-09-28 03:55:00* Test Item Value Reference Range Interpretation Comme nts APTT Patient (test code = 3173-2) See_Comment H [Automated Chauf[employer]ur [employer]rive] The system which generated this result transmitted reference range: 26 - 36 Seconds. The reference range was not used to interpret this result as normal/abnormal. Lab Interpretation (test code = 48287-9) [facility] NortheastCT CHEST PULMONARY [id number] 21:42:18HISTORY: Positive d-dimer, rule out P.E. TECHNIQUE: [...] chronic history of poorlycontrolled diabetes. Please correlate. [facility] NortheastLACTATE [id number] 21:42:00* Test Item Value Reference Range Interpretation Comme [facility] LDH (test code = 5923673323) 678 U/L 300-600 H Lab Interpretation (test cod e = 61634-6) [facility]COVID[facility] (ID NOW RAPID TESTING)2020-09-27 19:56:00* Test Item Value Reference Range Interpretation Comme [facility] SARS-CoV-2 Rapid ID NOW (test code = 50043-6) Not Detected Not Detected KARSON (test code = KARSON) ID NOW COVID-19 As say is an isothermal nucleic acid amplification test intended for the qualitative detection of nucleic acid from SARS-CoV-2 viral RNA in nasopharyngeal (POULTRY OFF[employer] WORKER) specimens. It is used under Emergency Use [...] clinically indicated. Lab Interpretation (test code = 22456-9) Normal [facility]aPTT2020-11-12 19:50:00* Test Item Value Reference Range Interpretation Comme [facility] APTT Patient (test code = 3173-2) See_Comment [Automated message] The system which generated this result transmitted reference range: 23 - 38 Seconds. The reference range was not used to interpret this result as normal/abnormal. KARSON (test code = KARSON) The [facility] patient population mean normal value for aPTT is 30 seconds. Lab Interpretation (test code = 35259-1) Normal [facility] NortheastProthrombin Time (PT) / [id number] 19:50:00 * Test Item Value Reference Range Interpretation Comme [facility] PROTIME PATIENT (test code = 5964-2) See_Comment [Automated messa ge] The system which generated this result transmitted reference range: 12.0 - 14.7 Seconds. The reference range was not used to interpret this result as normal/abnormal. INR (test code = 6301-6) Normal INR <1.1; Warfarin Therapeutic range 2.0 to 3.0 or 2.5 to 3.5, depending upon the indications. Lab Interpretation (test code = 42985-8) Normal [facility] NortheastTroponin [id number] 19:48:00* Test Item Value Reference Range Interpretation Comme [facility] TROPONIN I (test code = 3744384644) 0.207 ng/mL See_Comment H [Automated message] The [...] biotin. ? Lab Interpretation (test code = 08992-5) [facility] NortheastN-TERMINAL [id number] 19:46:00* Test Item Value Reference Range Interpretation Comme nts NT-proBNP (test code = 5361153521) 1370 pg/mL See_Comment H [Automated message] The system which generated this result transmitted reference range: <=125. The reference range was not used to interpret this result as normal/abnormal. KARSON (test code = KARSON) Biotin has been reported to cause a negative bias, interpret results relative to patient's use of biotin. Lab Interpretation (test code = 41499-2) [facility] NortheastD-ZLORZ3882-97-30 19:37:00* Test Item Value Reference Range Interpretation Comments D-DIMER (test code = 9021379008) See_Comment H [Automated message] The system which [...] a diagnosis. Lab Interpretation (test code = 71483-9) [facility] NortheastBasi Metabolic Panel (NA, K, CL, CO2, GLUCOSE, BUN, CREATININE, CA)2020-09-27 19:36:00* Test Item Value Reference Range Interpretation Comme nts NA (test code = 6777298362) 134 mmol/L 135-145 L K (test code = 6910785518) 4.9 mmol/L 3.5-5 CL (test code = 5222228191) 99 mmol/L 98-108 CO2 TOTAL (test code = 4385006722) 30 mmol/L 23-31 AGAP (test code = 4256133934) 2-16 BUN (test code = 1261764822) 22 mg/dL 7-23 GLUCOSE (test code = 4752570666) 216 mg/dL 70-110 H CREATININE (test code = 7674342438) 0.78 mg/dL 0.6-1.25 CALCIUM (test code = 8229845431) 9.3 mg/dL 8.6-10.6 eGFR Calculation (Non-) (test code = 3563557096) mL/min/1.73m2 eGFR Calculation () (test code = 8356803275) mL/min/1.73m2 KARSON (test code = KARSON) Association [...] imaging tests). Lab Interpretation (test code = 91222-4) [facility] (ALB, T.PRO, BILI T, BU/BC, ALT, AST, ALK PHOS)2020-09-27 19:36:00* Test Item Value Reference Range Interpretation Comme nts TOTAL BILI (test code = 9671572408) 1.4 mg/dL 0.1-1.1 H BILI UNCON (test code = 3608623494) 0.8 mg/dL 0.1-1.1 BILI CONJ (test code = 7769540103) 0.0 mg/dL 0-0.3 T PROTEIN (test code = 8251894268) 7.2 g/dL 6.3-8.2 ALBUMIN (test code = 5529784783) 4.2 g/dL 3.5-5 ALK PHOS (test code = 4064924454) 53 U/L 34-122 ALTv (test code = 1742-6) 106 U/L 5-50 H AST(SGOT) (test code = 7365933735) 61 U/L 13-40 H Lab Interpretation (test cod e = 31237-2) [facility] [id number] 19:35:00* Test Item Value Reference Range Interpretation Comme nts LIPASE (test code = 2760777541) 41 U/L 0-220 Lab Interpretation (test cod e = 33014-7) [facility] with [id number] 19:19:00* Test Item Value Reference Range Interpretation Comme nts WBC (test code = 6690-2) See_Comment [Automated [employer]] The system which generated this result transmitted reference range: 4.20 - 10.70 10*3/?L. The reference range was not used to interpret this result as normal/abnormal. RBC (test code = 789-8) See_Comment [Automated [employer]] The system which generated this result transmitted [...] 33.6 g/dL 31.2-35 RDW-SD (test code = 09285-9) 44.4 fL 38.5-51.6 RDW-CV (test code = 788-0) 13.2 % 12.1-15.4 PLT (test code = 777-3) See_Comment [Automated messa ge] The system which generated this result transmitted reference range: 150 - 328 10*3/?L. The reference range was not used to interpret this result as normal/abnormal. MPV (test code = 55492-0) 11.4 fL 9.8-13 NRBC/100 WBC (test code = 1474544586) See_Comment [Automated me ssage] The system which generated this result transmitted reference range: 0.0 - 10.0 /100 WBCs. The reference range was not used to interpret this result as normal/abnormal. NRBC x10^3 (test code = 9804416801) <0.01 See_Comment [Automated me ssage] The system which generated this result transmitted reference range: 10*3/?L. The reference range was not used to interpret this result as normal/abnormal. GRAN MAT (NEUT) % (test code = 770-8) 60.5 % IMM GRAN % (test code = 0117446864) 0.60 % LYMPH % (test code = 736-9) 27.0 % MONO % (test code = 5905-5) 8.4 % EOS % (test code = 713-8) 2.9 % BASO % (test code = 706-2) 0.6 % GRAN MAT x10^3(ANC) (test code = 8227913832) 4.80 10*3/uL 1.99-6.95 IMM GRAN x10^3 (test code = 1042155564) 0.05 10*3/uL 0-0.06 LYMPH x10^3 (test code = 731-0) 2.14 10*3/uL 1.09-3.23 MONO x10^3 (test code = 742-7) 0.67 10*3/uL 0.36-1.02 EOS x10^3 (test code = 711-2) 0.23 10*3/uL 0.06-0.53 BASO x10^3 (test code = 704-7) 0.05 10*3/uL 0.01-0.09 [facility] 1 [id number] 19:01:56CHEST PORTABLE ONE VIEW HISTORY:CP, SOB TECHNIQUE: [...] is seen.CONCLUSIONS:1. Mild pulmonary edema and borderline cardiomegalyUnBaylor Scott [facility]
[2024-10-24] MEDS ORDERED: CIPROFLOXACIN 400 MG/200 ML IVPB IV SCH (09:00)
[2024-10-24] MEDS ORDERED: VANCOMYCIN 1 GM in NA CHLORIDE 0.9% 250 ML IVPB SCH (09:00)
--- NOTE | 2024-10-24 09:04 | P.PN ---
Date of Service: 10/24/24 Subjective feeling good this am. Review of Systems 10-point ROS is otherwise unremarkable General: Unremarkable Eyes: Unremarkable ENT: Unremarkable Respiratory: Unremarkable Cardiovascular: Unremarkable Gastrointestinal: Unremarkable Genitourinary: Unremarkable Musculoskeletal: As per HPI Integumentary: As per HPI Neurological: Unremarkable Lymphatics: Unremarkable Physical Examination Temp Pulse Resp BP Pulse Ox 97.6 F 77 18 155/75 H 10/21/24 10:38 10/21/24 10:38 10/21/24 10:38 10/21/24 10:38 Vital signs for 10/23/24 reviewed General: Alert, In no apparent distress, Oriented x3 HEENT: Atraumatic, Normocephalic Neck: Supple Respiratory: Normal air movement Cardiovascular: No edema, Regular rate/rhythm, Abnormal S1 S2, Systolic murmur Capillary refill: <2 Seconds Gastrointestinal: Normal bowel sounds, Soft and benign Musculoskeletal: No clubbing, dressing to left lower extremity dry and intact Integumentary: No rashes Neurological: Normal speech, Normal tone, Normal affect Lymphatics: No axilla or inguinal lymphadenopathy External genitalia: Deferred Rectal: Deferred Laboratory Data (last 24 hrs) 10/20/24 10/20/24 12:59 12:59 WBC 10.80 Hgb 13.4 L Hct 40.3 Plt Count 251 Sodium 138 Potassium 3.4 L BUN 15 Creatinine 0.82 Glucose 121 H Conclusions/Impression: Operative day for left fifth toe and transmetatarsal amputation (10/21/24) Continue left upper arm PICC line Vancomycin as scheduled Merrem as scheduled Follow cultures -cultures positive for Proteus vulgaris and Enterococcus faecalis Pain control PT eval Hypertension Monitor and trend Patient allergic to lisinopril Continue amiodarone 200 mg p.o. daily Metoprolol 50 mg p.o. daily Losartan HCTZ (100/25) 1 p.o. daily CHF with unknown EF IVF off Continue Lasix 40 mg p.o. daily SCDs Out of bed 3 times daily with assist Diabetes Patient home schedule is Basaglar 30 units subcu daily, Molynn, Jerome, and NovoLog sliding scale Normal blood sugar ranges per CGM 112 to 140 mg/dL Discussed medications not on formulary and to bring home meds if he desires Fingerstick blood glucose monitoring before meals and at bedtime Basaglar 30 units subcu daily, decreased slightly secondary to good glycemic control Sliding scale insulin mild coverage Visit to ED with URI Status post surgery continue every 4 to 6 neb treatments Incentive spirometery POD #2 (10/23/24) wound to left great toe a dry ulceration, dressing dry and intact to amputation area, pedal pulse strong and regular Pt is without complaint Tissue culture + 4 gram negative rods resulted yesterday 10/22/24. Vancomycin cancelled. Merrem continued Return of culture and sensitivity for Proteus Vulgaris - sensitive to Levaquin. As PICC has backed out to distal IJ, will remove and change IV abx to Levaquin. Will switch to po Levaquin on discharge. POD #3 (10/24/24) great left toe wound with Santyl, decrusted, no pain, lateral foot amputation site dressed/dry. Micro positive for Proteus vulgaris and Enterococcus faecalis. Both quite sensitive to Levaquin and Cipro. As patient takes amiodarone, Cipro preferred and has good coverage as well. Pt concerned with myalgias from fluoroquinolones. Dr. Barron will discuss with patient later today. For now, continue Merrem and vancomycin at previous doses. Patient without complaint. VTE/GI prophylaxis <Monika Coronado - Last Filed: 10/24/24 08:57> Chart has been reviewed. Events of the last 24 hours have been noted. Case discussed with GLENDY. I performed a substantial part of the MDM during this patient's care today. I personally made or approved the documented management plan and acknowledge its risk of complications. I agree with the findings and documentation provided in the GLENDY's notes <Shayne William - Last Filed: 11/01/24 01:39>
[2024-10-24] MEDS: Meropenem 1,000 MG in NA CHLORIDE 0.9% 100 ML IV SCH (09:30)
[2024-10-24] MEDS: ALBUTEROL 2.5 MG/3 ML NEB SOL NEB PRN (10:40)
[2024-10-24] MEDS: INSULIN GLARGINE 100 UNIT/ML SQ SCH (10:51)
[2024-10-24] MEDS: POTASSIUM CL SA 10 MEQ TAB PO ONE (10:51)
[2024-10-24] MEDS: Levofloxacin 750mg IV 750 MG/150 ML BAG IV SCH (10:51)
[2024-10-24] MEDS ORDERED: VANCOMYCIN 2 GM in NA CHLORIDE 0.9% 250 ML IV SCH (13:00)
--- NOTE | 2024-10-24 15:10 | PN ---
Date of Progress Note: 10/24/2024 Subjective: The patient is awake, alert. No complaints. Vitals stable, afebrile. Cultures growing out Proteus vulgaris and Enterococcus faecalis. Sensitivity reviewed. Dressing is clean, dry, inta ct. Wound is healing slowly with some fibrin, but the redness, swelling, warmth, and edema have impr francie. Assessment: Status post left foot fifth toe transmetatarsal amputation. Recommendation: After discussion with the patient, we will try the patient on Levaquin. He had some reaction to Cipro and Levaquin and Cipro are sensitive to both bacteria. Therefore if he tolerates that we can send the patient home on oral Levaquin. We will hold the vancomycin and Merrem for right now and make that decision tomorrow morning. /MODL Voice ID: [id number] Report ID: [id number]
[2024-10-24] MEDS: IPRATROPIUM BROM 0.5MG/2.5ML NEB PRN (20:29)
[2024-10-25 06:19] LABS: Albumin 2.6 g/dL (3.4-5.0); Anion Gap 5.7 mEq/L (5.0-15.0); Magnesium 2.2 mg/dL (1.6-2.4); Phosphorus 3.8 mg/dL (2.5-4.9); Potassium 3.7 mEq/L (3.5-5.1)
[2024-10-25] MEDS: PANTOPRAZOLE 40MG TABLET PO SCH (08:13)
[2024-10-25] MEDS: POTASSIUM CL SA 10 MEQ TAB PO ONE (10:08)
--- NOTE | 2024-10-25 10:52 | DS ---
Date of Discharge: 10/25/2024 Admitting Diagnosis: Infected wound with osteomyelitis and cellulitis. Discharge Diagnoses: Infected wound with osteomyelitis and cellulitis, diabetes. Consultation Obtained: Hospitalist for medical management. Procedure Performed: Left foot fifth toe transmetatarsal amputation. Hospital Course: The patient is a 64-year-old gentleman who was admitted last Ishan for aforementio branden diagnosis, and underwent the aforementioned procedure. Postoperatively, Hospitalist team was con sulted. Cultures were checked. Antibiotics were adjusted. The patient is tolerating diet, ambulati ng with assistance. Pain is controlled. Culture shows proteus and enterobacter, sensitive to Levaqu in. His cellulitis has improved markedly well. Therefore, the patient will be discharged to home. Disposition: Home. Condition: Stable. Discharge Instructions: Resume home medications and diet. Activity as tolerated. No heavy lifting. [facility]. Call for appointment. Medications and wound care instructions given. MARÍA/RONALDO Voice ID: [id number] Report ID: [id number]
--- NOTE | 2024-10-25 12:20 | P.DS ---
Admission Date: 10/21/24 Discharge Date: 10/25/24 Primary Care Provider: Dr. Young Reason for Admission: Left fifth phalange and transmetatarsal amputation Brief History of Present Illness: Mr. Pena was sent to Dr. Barron for management of a diabetic left foot. He was set up with a PICC line and IV antibiotics (vancomycin) but his foot continued to worsen. Today he underwent a left fifth digit and fifth transmetatarsal amputation. The plan is for continuation of IV vancomycin with the addition of Merrem while following cultures. The hospitalist program was consulted for medical management of his other comorbidities. General: Alert, In no apparent distress, Oriented x3 HEENT: Atraumatic, Normocephalic Neck: Supple Respiratory: Normal air movement Cardiovascular: No edema, Regular rate/rhythm, Abnormal S1 S2, Systolic murmur Capillary refill: <2 Seconds Gastrointestinal: Normal bowel sounds, Soft and benign Musculoskeletal: No clubbing, Other (Postsurgical dressing to left lower extremity) Integumentary: No rashes Neurological: Normal speech, Normal tone, Normal affect Lymphatics: No axilla or inguinal lymphadenopathy Hospital Course: Mr. Pena was sent to Dr. Barron for management of a diabetic left foot. He was set up with a PICC line and IV antibiotics (vancomycin) but his foot continued to worsen. Today he underwent a left fifth digit and fifth transmetatarsal amputation. The plan is for continuation of IV vancomycin with the addition of Merrem while following cultures. The hospitalist program was consulted for medical management of his other comorbidities. Was diagnosed with left foot osteomyelitis, with infected wound and vascular compromise in the fifth toe, is status post Left fifth toe transmetatarsal amputation by Dr Barron. He was seen by physical therapy while inpatient, documented to be independent, Discharge home with home health, with wound care, skilled nurse Dressing change santyl with wet-to-dry saline daily to wound Follow-up wound healing center this in my clinic, call for appointment Discharge medication Levaquin 750 and [place] 7.5 called into patient's pharmacy Assessment Diabetic ulcer/ left fifth toe, infected wound and culture and sensitivity of pus-status post Left fifth toe transmetatarsal amputation, Levaquin and [place] after discharge PICC line placed for IV antibiotics treated with vancomycin and merrem Hypertension, diabetes resume home meds after discharge CHF unknown EF, on Lasix For respiratory infection, treated with nebulizer Culture 4+ gram-negative rods Proteus Vulgaris, Enterococcus faecalis Continue home medicines as previously prescribed GOAL: Clear understanding of disease process INSTRUCTIONS: Physician Discharge Instructions: -Follow-up with surgery after discharge, call office for appointment -Follow-up with PCP in 1 to 2 weeks -Please call Dr. William at [phone] if any questions regarding hospital stay -Please call nursing station at [phone] if any nursing or medication questions -Return to the emergency room if symptoms worsen Diet: ADA, low sodium Activity: Fall precautions <Micaela Zee - Last Filed: 10/25/24 19:17> Admission Date: 10/21/24 Discharge Date: 10/25/24 Hospital Course: Chart has been reviewed. Events of the last 24 hours have been noted. Case discussed with GLENDY. I performed a substantial part of the MDM during this patient's care today. I personally made or approved the documented management plan and acknowledge its risk of complications. I agree with the findings and documentation provided in the GLENDY's notes <Shayne William - Last Filed: 11/01/24 01:39> Disposition: DC HOME/HOME HEALTH CARE Discharge Condition: GOOD Vital Signs/Physical Exam: Temp Pulse Resp BP Pulse Ox 98.3 F 82 20 157/67 H 95 10/25/24 08:00 10/25/24 10:08 10/25/24 08:00 10/25/24 10:08 10/25/24 08:00 Laboratory Data at Discharge: WBC 10.00 thou/uL (4.3-10.9) 10/22/24 05:31 Hgb 12.3 g/dL (13.6-17.9) L 10/22/24 05:31 Hct 36.1 % (39.6-49.0) L 10/22/24 05:31 Plt Count 273 thou/uL (152-406) 10/22/24 05:31 Sodium 140 mEq/L (136-145) 10/25/24 05:39 Potassium 3.7 mEq/L (3.5-5.1) 10/25/24 05:39 BUN 13 mg/dL (7-18) 10/25/24 05:39 Creatinine 0.80 mg/dL (0.70-1.30) 10/25/24 05:39 Glucose 162 mg/dL (74-106) H 10/25/24 05:39 Phosphorus 3.8 mg/dL (2.5-4.9) 10/25/24 05:39 Magnesium 2.2 mg/dL (1.6-2.4) 10/25/24 05:39 <Micaela Zee - Last Filed: 10/25/24 19:17> Vital Signs/Physical Exam: Temp Pulse Resp BP Pulse Ox 97.4 F 72 22 H 115/54 L 93 10/25/24 12:00 10/25/24 12:00 10/25/24 12:00 10/25/24 12:00 10/25/24 12:00 Laboratory Data at Discharge: WBC 10.00 thou/uL (4.3-10.9) 10/22/24 05:31 Hgb 12.3 g/dL (13.6-17.9) L 10/22/24 05:31 Hct 36.1 % (39.6-49.0) L 10/22/24 05:31 Plt Count 273 thou/uL (152-406) 10/22/24 05:31 Sodium 140 mEq/L (136-145) 10/25/24 05:39 Potassium 3.7 mEq/L (3.5-5.1) 10/25/24 05:39 BUN 13 mg/dL (7-18) 10/25/24 05:39 Creatinine 0.80 mg/dL (0.70-1.30) 10/25/24 05:39 Glucose 162 mg/dL (74-106) H 10/25/24 05:39 Phosphorus 3.8 mg/dL (2.5-4.9) 10/25/24 05:39 Magnesium 2.2 mg/dL (1.6-2.4) 10/25/24 05:39 <Shayne William - Last Filed: 11/01/24 01:39> Diet: ADA Activity: No lifting more than 10 lbs Time spent managing pt's care (in minutes): 45 <Micaela Zee - Last Filed: 10/25/24 19:17> <Shayne William - Last Filed: 11/01/24 01:39> Home Medications: Losartan/Hydrochlorothiazide [Losartan-Hctz 100-25 mg Tab] 1 tab PO DAILY 01/23/17 Metoprolol Succinate [Toprol Xl*] 50 mg PO DAILY 01/23/17 Acetaminophen with Codeine [Tylenol with Codeine #4 Tablet] 1 each PO Q4HP PRN #40 tablet 01/27/17 Amiodarone HCl [Pacerone] 200 mg PO DAILY 10/20/24 Empagliflozin [Jardiance] 25 mg PO DAILY 10/20/24 Furosemide 40 mg PO DAILY 10/20/24 Insulin Regular, Human [Novolin R Flexpen] 100 units SQ PRN 10/20/24 Tirzepatide [Mounjaro] 15 mg SQ EVERY 7TH DAY 10/20/24 Vancomycin [Vancocin*] 2.75 gm IV DAILY 10/20/24 Physician Discharge Instructions: [facility] Continuing [employer] Call Tamela Diez MA at [phone] for questions or concerns after discharge. Expect a call within 1-2 business days of discharge. Alternate: Nguyen Espinal [phone] Resume home meds and diet Activity as tolerated, no heavy lifting Offload wound Santyl with wet-to-dry saline daily to wound Follow-up wound healing center this in my clinic, call for appointment Ian 750 and [place] 7.5 called into patient's pharmacy DC PICC line Followup: Hardik Barron MD [Primary Care Provider] - 10/27/24 (Follow-up in the wound healing center in my clinic, call for)
[2024-10-25 12:28] VITALS: BP 115/54; TEMP 97.4
--- NOTE | 2024-10-28 16:21 | EKG ---
Test Date: 2024-10-20 Test Time: 14:54:01 Bridge Maintenance Worker: ANDREW MEASUREMENT RESULTS: Intervals: Rate: 82 ME: 200 QRSD: 110 QT: 394 QTc: 460 [place]: P: 43 ME: 200 QRS: -1 T: 40 INTERPRETIVE STATEMENTS: Normal sinus rhythm Incomplete left bundle branch block Borderline ECG Compared to ECG 05/11/2023 10:58:04 Left bundle-branch block now present First degree AV block no longer present Prolonged QT interval no longer present Electronically Signed On 10-28-24 16:08:48 EXHAUST EQUIPMENT OPERATOR by Julio Hand
== END 2024-10-25 15:27 | disposition home health service (06) | DRG 255 ==
LOC: OR 07:52 → 2ND 10:47
PROVIDERS: ADMIT Surgery; ATTEND Hospitalist
PROC: 05H533Z Insertion of Infusion Device into Right Subclavian Vein, Percutaneous Approach (ICD-10-PCS; 2024-10-20)
PROC: 0Y6Y0Z0 Detachment at Left 5th Toe, Complete, Open Approach (ICD-10-PCS; principal; 2024-10-21 09:00)
DX: E11.52 Type 2 diabetes mellitus with diabetic peripheral angiopathy with gangrene (principal); N18.6 End stage renal disease; I13.2 Hypertensive heart and chronic kidney disease with heart failure and with stage 5 chronic kidney disease, or end stage renal disease; M86.172 Other acute osteomyelitis, left ankle and foot; L03.116 Cellulitis of left lower limb; E11.69 Type 2 diabetes mellitus with other specified complication; I50.9 Heart failure, unspecified; E11.22 Type 2 diabetes mellitus with diabetic chronic kidney disease; E11.621 Type 2 diabetes mellitus with foot ulcer; L97.529 Non-pressure chronic ulcer of other part of left foot with unspecified severity; B95.2 Enterococcus as the cause of diseases classified elsewhere; B96.4 Proteus (mirabilis) (morganii) as the cause of diseases classified elsewhere; I25.2 Old myocardial infarction; I25.10 Atherosclerotic heart disease of native coronary artery without angina pectoris; Z79.4 Long term (current) use of insulin; Z95.1 Presence of aortocoronary bypass graft; Z88.8 Allergy status to other drugs, medicaments and biological substances; Z90.49 Acquired absence of other specified parts of digestive tract; Z91.040 Latex allergy status; Z79.899 Other long term (current) drug therapy
CPT/HCPCS: 36415; 71045; 80048; 80069; 80202; 82947; 83036; 83735; 84100; 84132; 85025; 87070; 87075; 87077; 87186; 87205; 88305; 88311; 93005; 94010; 94640; 97116; 97161; J1171; J1650; J2003; J2185; J2250; J2405; J2470; J2704; J3010; J3590; J7030; J7040; J7050; J7605; J7613; J7644

== ENCOUNTER 2024-11-25 15:39 | Inpatient (IN) | payer OTHER, BC ==
--- OUTSIDE RECORDS SUMMARY | 2024-11-25 15:46 | XMS REPORT | Continuity of Care Document ---
Author Name Unknown Address [address] [facility] [place] [address] [facility] Address [address] [facility] [address] [place] [address] Care Team Providers Care Snuff Maker Name Role Phone Hannah Muñoz MD, Carlos Aguirre Primary [facility] KJ LOPEZ Attending Clinician Unavailable MOI ESTRADA Attending Clinician Unavailable MOI ESTRADA Attending Clinician MK Martines Attending Clinician Unavailab KJ Oneill Attending Clinician Unavailable Collin Attending Clinician Unavailable Paulette Harris MA Attending Clinician AIMEE Wood Attending Clinician Unanikki ileugenio Barrow RN, Fany Attending Clinician Unavailab le Doctor Unassigned, Mayfair Attending Clinician U JUAREZ Carbajal Attending Clinician RAEANN Howe Attending Clinician Rivas Gao MD, Juarez Vásquez Attending Clinician + Huy Judge DO Attending Clinician Draw, [facility] Attending Clinician Rivas Crouch ESTHETICIAN/OWNER, Blaise Guillen Attending Clinician [phone] BLAISE CROUCH Attending Clinician Rivas Stephens RN, Cristina Sheridan Attending Clinician [phone] Petrona Padilla Attending Clinician [phone] Aracely KNAPP, Maya Attending Clinician [phone] Jeramy BE, Elisabet Rinaldi Attending Clinician [phone] Jack ASENCIO, Oleksandr Braswell Attending Clinici an Collin Admitting Clinician Unavailable AIMEE MCGOWAN Admitting Clinician Malini Estrada MD, Moi Admitting Clinician [phone] Jack ASENCIO, Oleksandr Braswell Admitting Clinici an Payers Payer Name Policy Type Policy Number Effective Date Expirati on Date Source [facility] [id number] 2021 00:00:00 2024 00:00:00 OTHER CI [id number] [place] Actual [employer] [id number] 2023 00:00:00 [place] [id number] 2023 00:00:00 JEROME REYNOLDS FROM [facility] [id number] Problems Condition Name Condition Details Condition Category Status Onset Date Resolution Date Last Treatment Date Treating Clinician Comments Source Atheroscle rosis of coronary artery Atheroscle rosis of coronary artery Disease Active 2023-11 00:00: 00 Tex Swenson DM (diabetes mellitus) DM (diabetes mellitus) Disease Active 2023-11 0- 00:00: 00 [place] Santana Epic Neuropathy Neuropathy Disease Active 2023-11 0-01 00:00: 00 [place] Santana Epic Screening for malignant neoplasm of prostate Screening for Malignant Neoplasm of Prostate Problem Active 6-03 00:00: 00 [facility] Secondary polycythem ia Secondary Polycythem ia Problem Active 6 00:00: 00 [facility] Hypernatre keenan Hypernatre keenan Problem Active 6 00:00: 00 [facility] Morbid obesity Morbid Obesity Problem Active 07-25 00:00: 00 [facility] 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 Due to Type 2 Diabetes Mellitus Problem Active 07-25 00:00: 00 [facility] Bilateral cataracts Bilateral Cataracts Problem Active 3-04 00:00: 00 [facility] Long-term current use of insulin Long-term Current Use of Insulin Problem Active 3-04 00:00: 00 [facility] 5 MONTH FOLLOW UP 5 MONTH FOLLOW UP Active 12/27/2021 [facility] Diagnosis Active 2-11 00:00: 00 2022-07-18 16:05:00 [place] Santana I25.10 ECHO COMPLETE I25.10 ECHO COMPLETE Active 09/10/2021 [facility] Diagnosis Active 2020-11 0-26 00:00: 00 2021-12-04 08:34:00 [place] Santana 3 MONTHS FOLLOW UP/ECHO 3 MONTHS FOLLOW UP/ECHO Active 08/29/2021 [facility] Diagnosis Active 2020-11 0-14 00:00: 00 2021-12-27 10:07:00 [place] Santana P22.0 - RESPIRATOR Y DISTRESS SYNDROME P22.0 - RESPIRATOR Y DISTRESS SYNDROME Active 07/23/2021 [facility] Diagnosis Active 07-23 00:01: 00 2021-07-23 14:01:00 [place] Santana SOB SOB Active 07/16/2021 [facility] Diagnosis Active 07-16 00:00: 00 2021 15:20:00 [place] Santana N/A N/A Active 07/16/2021 [facility] Diagnosis Active 8 00:00: 00 2021-07-28 12:53:00 [place] Santana Aspartate aminotrans ferase serum level above reference range Aspartate Aminotrans ferase Serum Level above Reference Range Problem Active 06-23 00:00: 00 [facility] I25.10 - ATHSCL HEART DISEASE [place] I25.10 - ATHSCL HEART DISEASE OF [place] Active 06/19/2021 [facility] Diagnosis Active 8 00:01: 00 2021-06-26 13:26:00 [place]ana I25.10 I25.10 Active 06/19/2021 [facility] Diagnosis Active 06-19 00:00: 00 2021-06-21 09:32:00 [place] Santana Foot callus Foot Callus Problem Active 8 00:00: 00 [facility] Body mass index 40+ - severely obese Body Mass Index 40+ - Severely Obese Problem Active 06-18 00:00: 00 [facility] Atheroscle rosis of coronary artery without angina pectoris Atheroscle rosis of Coronary Artery without Angina Pectoris Problem Active 8 00:00: 00 [facility] Type 2 diabetes mellitus Type 2 Diabetes Mellitus Problem Active 8 00:00: 00 [facility] Hyperlipid emia Hyperlipid emia Problem Active 8 00:00: 00 [facility] Hypertensi ve disorder Hypertensi ve Disorder Problem Active 8 00:00: 00 [facility] Atrial fibrillati on Atrial Fibrillati on Problem Active 8 00:00: 00 [facility] Longstandi ng persistent atrial fibrillati on Longstandi ng persistent atrial fibrillati on Disease Active 06-05 00:00: 00 [facility] Anticoagul ation management encounter Anticoagul ation management encounter Disease Active 06-05 00:00: 00 [facility] Coronary artery disease involving [place] heart without angina pectoris Coronary artery disease involving [place] heart without angina pectoris Disease Active 06-05 00:00: 00 [facility] Obstructiv e sleep apnea Obstructiv e sleep apnea Disease Active 06-05 00:00: 00 [facility] Essential hypertensi on Essential hypertensi on Disease Active 06-05 00:00: 00 [facility] R07.9,I25. 10,I25.10, I50.22 R07.9,I25. 10,I25.10, I50.22 Active 05/29/2021 [place] Diagnosis Active 05-29 00:00: 00 2021-06-05 10:50:00 [place] Santana 6WK FOLLOW UP 6WK FOLLOW UP Active 05/23/2021 [facility] Diagnosis Active 05-23 00:00: 00 2021-08-29 14:00:00 [place] Santana NSTEMI (non-ST elevated myocardial infarction ) NSTEMI (non-ST elevated myocardial infarction ) Disease Active 05-23 00:00: 00 [facility] Acute congestive heart failure Acute congestive heart failure Disease Active 05-23 00:00: 00 [facility] New onset atrial fibrillati on New onset atrial fibrillati on Disease Active 05-23 00:00: 00 [facility] I50.22 I25.10 I48.91 I50.22 I25.10 I48.91 Active 05/08/2021 [facility] Diagnosis Active 05-08 00:00: 00 2021-05-22 08:25:00 [place] I25.10,I50 .22,I48.91 I25.10,I50 .22,I48.91 Active 04/02/2021 [place] Diagnosis Active 04-02 00:00: 00 2021-04-18 07:40:00 [place] Santana 2 MO F/U 2 MO F/U Active 03/22/2021 [facility] Diagnosis Active 03-22 00:00: 00 2021-05-23 10:08:00 [place] Santana NEW PT/DR. ROSITA POLO FT/CHF/UNS PE NEW PT/DR. ROSITA POLO FT/CHF/UNS PE Active 03/04/2021 [facility] Diagnosis Active 2021-0 4-19 00:00: 00 2021-03-22 10:48:00 [place] Santana [...] of 40.0-49.9 Disease Active 2019-11 00:00: 00 [facility] Chest pain Chest pain Disease Active 2019-11 00:00: 00 [facility] Congestive heart failure (disorder) Congestive heart failure (disorder) Resolved Problem 12/29/2021 [facility], Cammy Alcantar [facility], [facility], [place] Problem Resolve d 2021-12-29 23:48:14 [place] Santana ATHSCL HEART DISEASE OF [place] CORONARY ATHSCL HEART DISEASE OF [place] CORONARY Active [facility] Diagnosis Active 2021-07-28 12:53:00 [place] Santana Z95.1 - PRESENCE OF AORTOCORON NAVNEET BYPA Z95.1 - PRESENCE OF AORT[place]ET BYPA Active NATALIYA Drake,M Radha AN [facility] Diagnosis Active 2021-12-23 13:15:00 [place] Santana Allergies, Adverse Reactions, Alerts Allergy Name Allergy Type Status Severity Reaction(s) Onset Date Inactive Date Treating Clinician Comments Source Lisinopr il Allergy to substanc e Active 2023-11 00:00: 00 Memshyla Henryann Epic Metformi n Allergy to substanc e Active 2023-11 00:00: 00 Memshyla Santana Epic Rosuvast atin Allergy to substanc e Active 2023-11 00:00: 00 Memoria l Max Epic Metformi n Allergy to substanc e Active Nausea And Vomiting 2019-11 00:00: 00 [facility] Metformi n Propensi ty to adverse reaction s Active Nausea and/or Vomiting 2019-11 00:00: 00 [facility] METFORMI N DRUG INGREDI Active N/V 2019-11 00:00: 00 [facility] Lisinopr il Propensi ty to adverse reaction s Active Cough 2019-11 00:00: 00 [facility] LISINOPR IL DRUG INGREDI Active COUGH 2019-11 00:00: 00 [facility] NO KNOWN ALLERGIE S Drug Class Active [facility] Lisinopr il Allergy to substanc e Active [facility] Trulicit y Allergy to substanc e Active Nausea, Vomiting [facility] Social History Social Habit Start Date Stop Date Quantity Comments Source Gender identity 2024-02-06 15:56:21 Identifies as male gender (finding) [facility] [place] [facility] Sexual orientation [facility] Exposure to SARS-CoV-2 (event) Not sure [facility] History of Social function 2024-03-08 00:00:00 2024-03-08 00:00:00 [facility] Alcoholic beverage intake 2021-12-17 00:00:00 2021-12-17 00:00:00 Ex-drinker (finding) [facility] Alcohol intake 2021-08-08 00:00:00 2021-08-08 00:00:00 Ex-drinker (finding) [facility] Social History 2021-05-23 15:18:29 2021-05-23 15:18:29 [facility] Tobacco use and exposure 2021-05-23 00:00:00 2021-05-23 00:00:00 Smokeless tobacco non-user [facility] Sex Assigned At 1960 00:00:00 1960 00:00:00 [facility] Smoking Status Start Date Stop Date Source Tobacco smoking consumption unknown [facility] Never smoked tobacco Tex Santana [facility] Medications Ordered Medication Name Filled [...] MG tablet furosemide (Lasix) 40 MG tablet 2023-11- 00:00: 00 04-04 23:59 :00 No 40mg QD Take 1 tablet by mouth 1 time each day. Halishyla pearl Max Swenson metoprolol succinate XL (Toprol-XL) 50 [...] 1 time each day. Tex kang Max Leela amiodarone (Pacerone) 200 MG tablet amiodarone (Pacerone) 200 MG tablet 5-10 00:00: 00 10-06 00:00 :00 No = 1 tab, PO, Daily, # 90 tab, 3 Refill(s), Pharmacy: [facility], 193.04, cm, 03/08/24 16:57:00 CDT, Height, 131.227, kg, 03/08/24 16:57:00 CDT, Weight Halishyla pearl Max Epic losartan (Cozaar) 25 MG tablet losartan (Cozaar) 25 MG tablet -23 00:00: 00 Yes 25mg 25 mg. Tex kang Max Swenson amiodarone (Pacerone) 200 MG tablet amiodarone (Pacerone) 200 MG tablet 2-08 00:00: 00 Yes = 1 tab, PO, Daily, # 90 tab, 0 Refill(s), Pharmacy: [facility], 193.04, cm, 09/01/23 9:58:00 CDT, Height, 135.318, kg, 09/01/23 9:58:00 CDT, Weight Halishyla pearl Max Epic losartan (Cozaar) 25 MG tablet losartan (Cozaar) 25 MG tablet 2022-11 2-14 00:00: 00 10-06 00:00 :00 No = 0.5 tab, PO, Daily, # 45 tab, 2 Refill(s), Pharmacy: [facility], 193.04, cm, 09/01/23 9:58:00 CDT, Height, 135.318, kg, 09/01/23 9:58:00 CDT, Weight Memoria l Max Epic evolocumab (Repatha SureClick) 140 MG/ML injection evolocumab (Repatha SureClick) 140 MG/ML injection 2022-11 0- 00:00: 00 Yes 140mg 140 mg = 1 mL, SUB-Q, Q14D, # 6 mL, 3 Refill(s), Pharmacy: [facility], 193.04, cm, 09/01/23 9:58:00 CDT, Height, 135.318, kg, 09/01/23 9:58:00 CDT, Weight Memoria l Max Epic metoprolol succinate XL (Toprol-XL) 50 MG 24 hr tablet metoprolol succinate XL (Toprol-XL) 50 MG 24 hr tablet 08-07 00:00: 00 10-06 00:00 :00 No = 1 tab, PO, Daily, # 90 tab, 2 Refill(s), Pharmacy: [facility], 193.04, cm, 03/02/23 17:38:00 CDT, Height, 135.455, kg, 03/02/23 17:38:00 CDT, Weight Memoria l Max Epic furosemide (Lasix) 40 MG tablet furosemide (Lasix) 40 MG tablet 3-12 00:00: 00 10-06 00:00 :00 No = 1 tab, PO, Daily, # 180 tab, 2 Refill(s), Pharmacy: [facility], 193.04, cm, 08/26/22 15:09:00 CDT, Height, 141.591, kg, 08/26/22 15:09:00 CDT, Weight Memoria l [place] Epic 24 HR Metoprolol Tartrate 100 MG Extended Release Tablet [Toprol] 2021-0 - 17:36: 00 Yes 100 mg = 1 tab, PO, Daily, # 90 tab, 3 Refill(s), Pharmacy: [facility], 193.04, cm, 08/29/21 17:30:00 CDT, Height, 157.727, kg, 08/29/21 17:30:00 CDT, Weight [place] atorvastati n 20 MG Oral Tablet [Lipitor] 12-27 17:36: 00 Yes 20 mg = 1 tab, PO, Bedtime, # 90 tab, 3 Refill(s), Pharmacy: [facility], 193.04, cm, 08/29/21 17:30:00 CDT, Height, 157.727, kg, 08/29/21 17:30:00 CDT, Weight Memoria pearl Max losartan 25 mg oral tablet 12-27 17:34: 00 Yes 25 mg = 1 tab, PO, Daily, # 90 tab, 3 Refill(s), Pharmacy: [facility], 193.04, cm, 08/29/21 17:30:00 CDT, Height, 157.727, kg, 08/29/21 17:30:00 CDT, Weight Memoria pearl [place] AMIODarone 200 mg oral tablet 12-27 17:30: 00 Yes 200 mg = 1 tab, PO, Daily, # 90 tab, 3 Refill(s), Pharmacy: [facility], 193.04, cm, 08/29/21 17:30:00 CDT, Height, 157.727, kg, 08/29/21 17:30:00 CDT, Weight Memoria pearl Max apixaban 5 MG Oral Tablet [Eliquis] 12-27 17:30: 00 Yes 5 mg = 1 tab, PO, Q12H, # 180 tab, 3 Refill(s), Pharmacy: [facility], 193.04, cm, 08/29/21 17:30:00 CDT, Height, 157.727, kg, 08/29/21 17:30:00 CDT, Weight Memoria pearl Max Furosemide 40 MG Oral Tablet 12-27 17:30: 00 Yes 40 mg = 1 tab, PO, BID Diuretic, # 180 tab, 3 Refill(s), Pharmacy: [facility], 193.04, cm, 08/29/21 17:30:00 CDT, Height, 157.727, kg, 08/29/21 17:30:00 CDT, Weight [place] Santana apixaban 5 MG Oral Tablet [Eliquis] 12-27 16:37: 00 No 5 mg, PO, Q12H, tab, 0 Refill(s), For Atrial Fibrilatio n [place] Santana 3 ML Insulin, Aspart, Human 100 UNT/ML Pen Injector [NovoLog] 12-27 16:36: 00 Yes 2 unit, 0 Refill(s) Tex Henryann 3 ML Insulin Glargine 100 UNT/ML Pen Injector [Basaglar] 12-27 16:36: 00 Yes 40 unit, SUB-Q, Bedtime, # 12 mL, 3 Refill(s) Tex pearl Santana insulin aspart (NovoLOG FLEXPEN) 100 UNIT/ML pen insulin aspart (NovoLOG FLEXPEN) 100 UNIT/ML pen 12-27 00:00: 00 Yes 2 unit, 0 Refill(s) Tex pearl Santana Epic insulin glargine (Basaglar KwikPen) 100 UNIT/ML pen insulin glargine (Basaglar KwikPen) 100 UNIT/ML pen 12-27 00:00: 00 Yes 20 unit, SUB-Q, Bedtime, # 12 mL, 3 Refill(s) Tex kang Max Epic apixaban (Eliquis) 5 MG tablet 12-17 11:31: 02 Yes 5mg Q.5D Take 5 mg by mouth 2 (two) times a day. [facility] empaglifloz in (Jardiance) 25 MG 12-17 11:31: 02 Yes 1{tbl} QD Take 1 tablet by mouth 1 (one) time each day. [facility] levothyroxi ne (Synthroid, Levoxyl) 50 MCG tablet 12-17 11:31: 02 Yes 50ug Take 50 mcg by mouth 1 (one) time each day before breakfast. [facility] losartan 25 mg oral tablet 2020-11 20:40: 00 Yes 25 mg = 1 tab, PO, Daily, # 90 tab, 1 Refill(s), Pharmacy: [facility], 193.04, cm, 07/25/21 3:56:00 CDT, Height, 161.534, kg, 07/23/21 9:12:00 CDT, Weight Memoria pearl Santana Furosemide 40 MG Oral Tablet 2020-11 20:38: 00 Yes 40 mg = 1 tab, PO, BID Diuretic, # 180 tab, 3 Refill(s), Pharmacy: [facility], 193.04, cm, 07/25/21 3:56:00 CDT, Height, 161.534, kg, 07/23/21 9:12:00 CDT, Weight Memoria pearl Santana AMIODarone 200 mg oral tablet 2020-11 20:38: 00 Yes 400 mg = 2 tab, PO, BID, # 360 tab, 3 Refill(s), Pharmacy: [facility], 193.04, cm, 07/25/21 3:56:00 CDT, Height, 161.534, kg, 07/23/21 9:12:00 CDT, Weight Memoria pearl Santana clopidogrel 75 mg oral tablet 2020-11 20:37: 00 Yes 75 mg = 1 tab, PO, Daily, # 90 tab, 3 Refill(s), Pharmacy: [facility], 193.04, cm, 07/25/21 3:56:00 CDT, Height, 161.534, kg, 07/23/21 9:12:00 CDT, Weight [place] Santana levothyroxi ne (Synthroid, Levoxyl) 50 MCG tablet 08-08 09:14: 13 Yes 50ug Take 50 mcg by mouth 1 (one) time each day before breakfast. [facility] No known medications 08-08 09:14: 13 No No known medication s [facility] apixaban (Eliquis) 5 MG tablet 08-08 09:10: 00 Yes 5mg Q.5D Take 5 mg by mouth 2 (two) times a day. [facility] empaglifloz in (Jardiance) 25 MG 08-08 09:10: 00 Yes 1{tbl} QD Take 1 tablet by mouth 1 (one) time each day. [facility] Jardiance 07-30 14:00: 00 No Notes: (Same [...] s with feeding tube less than 14 [place] (Dobhoff, J-tube etc) and pediatric and patients. Tex Santana Furosemide 07-29 21:00: 00 No Notes: (Same as: Lasix) May cause GI upset. Give with food or milk. Tex Santana tramadol hydrochlori de 50 MG Oral Tablet 07-29 17:22: 00 Yes 50 mg = 1 tab, PO, Q6H, # 10 tab, 0 Refill(s), Pharmacy: [facility], 193.04, cm, 07/25/21 3:56:00 CDT, Height, 161.534, kg, 07/23/21 9:12:00 CDT, Weight Halishyla pearl Santana levothyroxi ne 50 mcg (0.05 mg) oral tablet 07-29 15:04: 00 Yes 50 microgram = 1 tab, PO, Q630AM, # 30 tab, 0 Refill(s), Pharmacy: [facility], 193.04, cm, 07/25/21 3:56:00 CDT, Height, 161.534, kg, 07/23/21 9:12:00 CDT, Weight Tex Santana sacubitril 24 MG / valsartan 26 MG Oral Tablet [Entresto] 07-29 15:04: 00 Yes 1 tab, PO, Q12H, # 60 tab, 0 Refill(s), Pharmacy: [facility], 193.04, cm, 07/25/21 3:56:00 CDT, Height, 161.534, kg, 07/23/21 9:12:00 CDT, Weight Memoria l Max tamsulosin 0.4 mg oral capsule 07-29 15:04: 00 Yes 0.4 mg = 1 cap, PO, After Breakfast, # 30 cap, 0 Refill(s), Pharmacy: [facility], 193.04, cm, 07/25/21 3:56:00 CDT, Height, 161.534, kg, 07/23/21 9:12:00 CDT, Weight Memoria pearl Santana Furosemide 40 MG Oral Tablet 07-29 15:03: 00 Yes 40 mg = 1 tab, PO, BID Diuretic, # 60 tab, 0 Refill(s), Pharmacy: [facility], 193.04, cm, 07/25/21 3:56:00 CDT, Height, 161.534, kg, 07/23/21 9:12:00 CDT, Weight Memoria l Max carvedilol 6.25 mg oral tablet 07-29 15:03: 00 Yes 6.25 mg = 1 tab, PO, Q12H, # 60 tab, 0 Refill(s), Pharmacy: [facility], 193.04, cm, 07/25/21 3:56:00 CDT, Height, 161.534, kg, 07/23/21 9:12:00 CDT, Weight Memoria l Max clopidogrel 75 mg oral tablet 07-29 15:03: 00 Yes 75 mg = 1 tab, PO, Daily, # 60 tab, 0 Refill(s), Pharmacy: [facility], 193.04, cm, 07/25/21 3:56:00 CDT, Height, 161.534, kg, 07/23/21 9:12:00 CDT, Weight Memoria l [place] ferrous sulfate 325 MG Oral Tablet 07-29 15:03: 00 Yes 325 mg = 1 tab, PO, Daily, # 30 tab, 0 Refill(s), Pharmacy: [facility], 193.04, cm, 07/25/21 3:56:00 CDT, Height, 161.534, kg, 07/23/21 9:12:00 CDT, Weight Tex Santana apixaban 5 mg oral tablet 07-29 15:02: 00 Yes 5 mg = 1 tab, PO, Q12H, For Atrial Fibrillati on, # 60 tab, 0 Refill(s), Pharmacy: [facility], 193.04, cm, 07/25/21 3:56:00 CDT, Height, 161.534, kg, 07/23/21 9:12:00 CDT, Weight Tex Santana AMIODarone 200 mg oral tablet 07-29 15:01: 00 Yes 400 mg = 2 tab, PO, BID, # 90 tab, 0 Refill(s), Pharmacy: [facility], 193.04, cm, 07/25/21 3:56:00 CDT, Height, 161.534, kg, 07/23/21 9:12:00 CDT, Weight Tex Santana Plavix 07-29 14:00: 00 No Notes: (Same As: Plavix) Tex Santana ferrous sulfate 07-29 14:00: 00 No Notes: Give with food. iron elemental [id number] as ferrous sulfate Dose=___mg elemental iron Tex Henryann Furosemide 07-29 13:09: 00 No Notes: (Same [...] s with feeding tube less than 14 [place] (Dobhoff, J-tube etc) and pediatric and patients. Tex Santana Lasix 07-29 02:00: 00 No Notes: (Same as: Lasix) Tex Santana carvedilol (Coreg) 6.25 MG tablet 07-29 00:00: 00 Yes 1{tbl} Q12H Take 1 tablet by mouth every 12 (twelve) hours. [facility] clopidogrel (Plavix) 75 MG tablet 07-29 00:00: 00 Yes 1{tbl} QD Take 1 tablet by mouth 1 (one) time each day. [facility] tamsulosin (Flomax) 0.4 MG 24 hr capsule 07-29 00:00: 00 Yes 1{capsu le} QD Take 1 capsule by mouth 1 (one) time each day. [facility] traMADol (Ultram) 50 MG tablet 07-29 00:00: 00 Yes 1{tbl} Q6H Take 1 tablet by mouth every 6 (six) hours. [facility] Lasix 07-28 21:00: 00 No Notes: (Same [...] s with feeding tube less than 14 [place] (Dobhoff, J-tube etc) and pediatric and patients. [...] e. Expires in days from ____Date Tex pearl Santana carvedilol 07-26 14:29: 00 No Notes: [...] date: 07/25/21 10:48:00 CDT Tex Santana Ipratropium [place] 0.2 MG/ML Inhalant Solution 07-25 15:06: 00 [...] juice. (Same as: Miralax) Tex Santana sennosides, CUSTODIAL 8.6 MG Oral Tablet 07-25 14:00: 00 [...] 72 hours (Same as: Transderm- Scop) Tex Snatana Vasopressin (CUSTODIAL) 07-25 02:46: 00 No Notes: (Same As: [...] No Notes: Use the following cdm for [id number]. Tex Santana vecuronium (ANES) 07-24 20:20: 00 [...] Notes: (Same as: Mag-Ox 400) Magnesium oxide [id number]=604n g elemental magnesium Dose=____m g magnesium oxide [...] CDT, Stop date: 07/24/21 14:13:00 CDT Halishyla pearl Max sodium chloride (ANES) 48 mL + dexmedetomi dine (ANES) 200 microgram 07-24 18:01: 00 No Route: IV, Drug form: INJ, Start date: 07/24/21 13:01:00 CDT, Stop date: 07/24/21 14:01:00 CDT Halishyla pearl Max irrigation solution (ANES) 1000 mL 07-24 17:16: 00 No Route: IV, Total Volume: 1,000, Start date: 07/24/21 12:16:00 CDT, Stop date: 07/24/21 13:16:00 CDT Tex Santana Insulin regular (ANES) 07-24 16:22: 00 No Route: IV, Drug form: INJ, ONCE, Stop date: 07/24/21 11:22:00 CDT Memshyla pearl Santana heparin (ANES) 07-24 16:12: 00 No Route: IV, Drug form: INJ, ONCE, Stop date: 07/24/21 11:12:00 CDT [place] Sant[place] AMIODarone (ANES) 50 mg 07-24 16:12: 00 No Route: IV, Drug form: INJ, Start date: 07/24/21 11:12:00 CDT, Stop date: 07/24/21 12:12:00 CDT Memshyla pearl Santana phenylephri ne (ANES) 07-24 15:40: 00 No Route: IV, Drug form: INJ, ONCE, Stop date: 07/24/21 10:40:00 CDT Memshyla Santana Amicar (ANES) 07-24 15:40: 00 No Route: IV, Drug form: INJ, ONCE, Stop date: 07/24/21 10:40:00 CDT Memshyla Santana propofol (ANES) 07-24 15:35: 00 No Route: IV, Drug form: INJ, ONCE, Stop date: 07/24/21 10:35:00 CDT Memhsyla pearl [place] succinylcho line (ANES) 07-24 15:35: 00 No Route: IV, Drug form: INJ, ONCE, Stop date: 07/24/21 10:35:00 CDT Memshyla pearl Max midazolam (ANES) 07-24 15:02: 00 No Route: IV, Drug form: SOLN, ONCE, Stop date: 07/24/21 10:02:00 CDT Memshyla pearl Max fentaNYL (ANES) 07-24 15:02: 00 No Route: [...] Yes 40 unit, SUB-Q, Daily, 0 Refill(s) eTx Santana semaglutide (Ozempic, 0.25 or 0.5 MG/DOSE,) [...] by mouth 1 (one) time each day. [facility] apixaban (Eliquis) 5 MG tablet 07-16 14:21: 39 Yes 5mg Q.5D Take 5 mg by mouth 2 (two) times a day. [facility] Insulin Regular Human (RELION R IJ) 07-16 14:21: 11 07-16 00:00 :00 No 20U Q.5D Inject 20 Units as directed 2 (two) times a day. [facility] empaglifloz in (Jardiance) 25 MG 07-16 09:23: 03 Yes 1{tbl} QD Take 1 tablet by mouth 1 (one) time each day. [facility] apixaban (Eliquis) 5 MG tablet 07-16 09:21: 39 Yes 5mg Q.5D Take 5 mg by mouth 2 (two) times a day. [facility] Ozempic, 0.25 or 0.5 MG/DOSE, 2 MG/1.5ML solution pen-injecto r 07-09 00:00: 00 Yes .5mg Inject 0.5 mg under the skin 1 (one) time per week. [facility] insulin degludec (Tresiba FlexTouch) 200 UNIT/ML injection 06-18 00:00: 00 Yes 38U QD Inject 38 Units under the skin 1 (one) time each day. [facility] semaglutide (Ozempic, 0.25 or 0.5 MG/DOSE,) 2 MG/1.5ML solution pen-injecto r 06-18 00:00: 00 Yes .5mg 0.5 mg. [facility] apixaban (Eliquis) 5 MG tablet 06-11 14:25: 25 Yes 5mg Q.5D Take 5 mg by mouth 2 (two) times a day. [facility] insulin NPH-insulin regular (NovoLIN) (70-30) 100 UNIT/ML injection 06-11 14:25: 25 Yes Inject under the skin 2 (two) times a day before meals. [facility] Insulin Regular Human (RELION R IJ) 06-11 14:25: 25 Yes 20U Q.5D Inject 20 Units as directed 2 (two) times a day. [facility] Insulin NPH Isophane & Regular (NOVOLIN 70/30 SC) 06-11 14:21: 45 06-11 00:00 :00 No Inject under the skin. [facility] insulin NPH-insulin regular (NovoLIN) (70-30) 100 UNIT/ML injection 06-11 09:25: 25 Yes Inject under the skin 2 (two) times a day before meals. [facility] Sodium Chloride 0.9% IV 750 mL 06-05 [...] 2 (two) times a day before meals. [facility] Insulin NPH Isophane & Regular (NOVOLIN 70/30 SC) 06-04 18:30: 53 Yes Inject under the skin. [facility] apixaban (Eliquis) 5 MG tablet 06-04 18:29: 13 Yes 5mg Q.5D Take 5 mg by mouth 2 (two) times a day. [facility] apixaban (Eliquis) 5 MG tablet 05-23 16:36: 01 Yes 5mg Q.5D Take 5 mg by mouth 2 (two) times a day. [facility] furosemide (Lasix) 80 MG tablet 04-28 00:00: 00 Yes 1{tbl} Q.5D Take 1 tablet by mouth 2 (two) times a day. [facility] atorvastati n (Lipitor) 40 MG tablet 04-28 00:00: 00 Yes 40mg Take 40 mg by mouth every night. [facility] losartan (Cozaar) 25 MG tablet 04-28 00:00: 00 Yes .5{tbl} QD Take 0.5 tablets by mouth 1 (one) time each day. [facility] furosemide (Lasix) 40 MG tablet 04-28 00:00: 00 Yes 1{tbl} Q.5D Take 1 tablet by mouth 2 (two) times a day. [facility] Saline Flush 0.9% 04-18 14:00: 00 No Notes: (Same as: BD Posiflush) [place] Henryann Saline Flush 0.9% 04-18 12:50: 00 No Notes: (Same as: BD Posiflush) Halishyla pearl Max AMIODarone 200 mg oral tablet 03-22 17:58: 00 Yes 200 mg = 1 tab, PO, Daily, # 90 tab, 1 Refill(s), Pharmacy: [id number], 185.42, cm, 03/22/21 11:01:00 [...] n [place] Santana Pacerone 200 MG tablet 03-22 00:00: 00 Yes 200mg QD Take 200 mg by mouth 1 (one) time each day. [facility] atorvastati n 40 mg tablet 12-13 00:00: 00 Yes [id number] 40mg Take 1 tablet by mouth at bedtime. [facility] digoxin 125 mcg (0.125 mg) tablet 12-13 00:00: 00 Yes [id number] 125ug Take 1 tablet by mouth daily. [facility] furosemide 80 mg tablet 12-13 00:00: 00 Yes [id number] 80mg Take 1 tablet by mouth every morning and evening. [facility] losartan 25 mg tablet 12-13 00:00: 00 Yes [id number] 12.5mg Take 0.5 tablets by mouth daily. [facility] aspirin 81 MG chewable tablet 12-13 00:00: 00 Yes 81mg QD Chew 81 mg 1 (one) time each day. [facility] digoxin 125 mcg (0.125 mg) tablet 2019-11 00:00: 00 12-13 00:00 :00 No [id number] 125ug Take 1 tablet by mouth daily. [facility] insulin NPH and regular human 70-30 (HUMULIN 70-30 U-100 INSULIN) 100 unit/mL (70-30) injection 40 Units 2019-11 02:00: 00 Yes 40U 40 Units, Subcutaneo us, BID, First dose (after last modificati on) on Thu10/03/20 at 2000, Until Discontinu ed, Routine [facility] digoxin 125 mcg tablet 2019-11 00:00: 00 12-13 00:00 :00 No [id number] .125mg Take 1 tablet by mouth daily. [facility] losartan 25 mg tablet 2019-11 00:00: 00 12-13 00:00 :00 No [id number] 12.5mg Take 0.5 tablets by mouth daily. [facility] Sliding Scale Insulin - Lispro (HumaLOG) + Fsbg Testing 2019-11 20:00: 00 Yes Subcutanemandy us, TIDAC, First dose (after last modificati on) on Thu10/03/20 at 1400, Until Discontinu ed, Routine [facility] insulin lispro (human) (HumaLOG U-100) injection 5 Units 2019-11 18:45: 00 10-03 17:45 :00 No 5U 5 Units, Subcutaneo us, ONCE, 1 dose, Thu10/03/20 at 1245, Routine [facility] KCL (KLOR-CON M20) tablet 20 mEq 2019-11 18:15: 00 10-03 17:47 :00 No 20meq 20 mEq, Oral, ONCE, 1 dose, Thu10/03/20 at 1215, Routine [facility] KCL (KLOR-CON M20) tablet 20 mEq 2019-11 15:00: 00 Yes 20meq 20 mEq, Oral, DAILY, First dose on Thu10/03/20 at 0900, Until Discontinu ed, Routine [facility] potassium chloride 20 mEq/100 mL (KCL) 20 mEq/100 mL 20 mEq piggyback 2019-11 13:30: 00 10-03 13:40 :00 No 20meq 20 mEq, IV Piggyback, ONCE, 1 dose, Thu10/03/20 at 0730 [facility] apixaban 5 mg tablet 2019-11 00:00: 00 Yes [id number] 5mg Take 1 tablet by mouth 2 (two) times daily. Indication s: prevention of thromboemb olism in paroxysmal atrial fibrillati on [facility] nitroglycer in 0.4 mg sublingual tablet 2019-11 00:00: [id number] 1 tablet under the tongue every 5 (five) minutes as needed for Chest pain. [facility] aspirin 81 mg chewable tablet 2019-11 00:00: 00 12-13 00:00 :00 No [id number] 81mg Take 1 tablet by mouth daily. [facility] atorvastati n 40 mg tablet 2019-11 00:00: 00 12-13 00:00 :00 No [id number] 40mg Take 1 tablet by mouth at bedtime. [facility] furosemide 40 mg tablet 2019-11 00:00: 00 12-13 00:00 :00 No [id number] 80mg Take 2 tablets by mouth every morning and evening. [facility] metoprolol succinate XL 50 mg 24 hr tablet 2019-11 00:00: 00 10-10 00:00 :00 No [id number] 75mg Take 1.5 tablets by mouth 2 (two) times daily. [facility] furosemide 80 mg tablet 2019-11 00:00: 00 10-03 00:00 :00 No [id number] 80mg Take 1 tablet by mouth every morning and evening for 90 days. [facility] metoprolol succinate XL 25 mg 24 hr tablet 2019-11 00:00: 00 10-03 00:00 :00 No [id number] 75mg Take 3 tablets by mouth 2 (two) times daily for 90 days. [facility] Sliding Scale Insulin - Lispro (HumaLOG) + Fsbg Testing 2019-11 20:00: 00 10-03 19:16 :39 No Subcutaneo us, TID, First dose (after last modificati on) on Thu10/02/20 at 1400, Until Discontinu ed, Routine [facility] insulin NPH and regular human 70-30 (HUMULIN 70-30 U-100 INSULIN) 100 unit/mL (70-30) injection 40 Units 2019-11 15:30: 00 10-03 19:16 :39 No 40U 40 Units, Subcutaneo us, QAM+PM, First dose (after last modificati on) on Thu10/02/20 at 0930, Until Discontinu ed, [facility]ine [facility]LAS[facility] 80 mg 2019-11 15:00: 00 Yes 80mg 80 mg, Oral, QAM+PM, First dose on Thu10/02/20 at 0900, Until Discontinu ed, Routine [facility] f[facility]sem[facility] (LASIX) injection 80 mg 2019-11 20:00: 00 10-02 14:59 :44 No 80mg 80 mg, IV Push, TID, First dose (after last modificati on) on Thu10/01/20 at 1400, Until Discontinu ed, ANTON [facility] tc 99m-tetrofo smin (MYOVIEW) injection 35 millicurie 2019-11 19:15: 00 10-01 19:05 :00 No 35mCi 35 millicurie , Intravenou s, ONCE, 1 dose, Thu10/01/20 at 1315, Routine [facility] insulin NPH and regular human 70-30 (HUMULIN 70-30 U-100 INSULIN) 100 unit/mL (70-30) injection 40 Units 2019-11 15:00: 00 10-02 15:21 :14 No 40U 40 Units, Subcutaneo us, QAM+PM, First dose on Thu10/01/20 at 0900, Until Discontinu ed, Routine [facility] KCL (KLOR-CON M20) tablet 20 mEq 2019-11 14:15: 00 10-01 13:43 :00 No 20meq 20 mEq, Oral, ONCE, 1 dose, Thu10/01/20 at 0815, Routine [facility] magnesium sulfate in water 2 gram/50 mL (4 %) infusion 2 g 2019-11 14:00: 00 10-01 13:42 :00 No 2g 2 g, IV Piggyback, ONCE, 1 dose, Thu10/01/20 at 0800, Routine [facility] metoprolol succinate XL (TOPROL XL) tablet 75 mg 2019-11 02:00: 00 Yes 75mg 75 mg, Oral, BID, First dose (after last modificati on) on Thu09/30/20 at 2000, Until Discontinu ed, Routine [facility] sulfur hexafluorid e microsphr (LUMASON) injection 5 mL 2019-11 18:30: 00 09-30 16:00 :00 No 5mL 5 mL, Intravenou s, ONCE, 1 dose, [place] 09/30/20 at 1230, Routine
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 Restricted medication : SHANITA VALADEZ, REJI [facility] digoxin (LANOXIN) tablet 125 mcg 2019-11 15:45: 00 Yes 125ug 125 mcg, Oral, DAILY, First dose on [place] 09/30/20 at 0945, Until Discontinu ed, Routine [facility] metoprolol succinate XL (TOPROL XL) tablet 25 mg 2019-11 15:28: 00 09-30 15:46 :00 No 25mg 25 mg, Oral, ONCE, 1 dose, [place] 09/30/20 at 0930, Routine [facility] Polyethylen e Glycol 3350 (MIRALAX) powder 17 g 2019-11 14:15: 00 10-02 20:22 :36 No 17g 17 g, Oral, BID, First dose on [place] 09/30/20 at 0815, Until Discontinu ed, Routine [facility] insulin glargine (LANTUS U-100) injection 16 Units 2019-11 03:00: 00 10-01 14:16 :00 No 16U 16 Units, Subcutaneo us, QHS, First dose on [facility] 09/29/20 at 2100, Until Discontinu ed, Routine [facility] apixaban (ELIQUIS) tablet 5 mg 2019-11 02:00: 00 Yes 5mg 5 mg, Oral, BID, First dose on [facility] 09/29/20 at 2000, Until Discontinu ed, Routine [facility] furosemide (LASIX) injection 80 mg 2019-11 02:00: 00 10-01 17:11 :54 No 80mg 80 mg, IV Push, Q12H, First dose (after last modificati on) on 09/29/20 at 2000, Until Discontinu ed, ANTON [facility] metoprolol succinate XL (TOPROL XL) tablet 50 mg 2019-11 02:00: 00 09-30 15:28 :45 No 50mg 50 mg, Oral, BID, First dose (after last modificati on) on 09/29/20 at 2000, Until Discontinu ed, Routine [facility] insulin lispro (human) (HumaLOG U-100) injection 4 Units 2019-11 23:00: 00 10-01 14:16 :00 No 4U 4 Units, Subcutaneo us, TID MEALS, First dose on 09/29/20 at 1700, Until Discontinu ed, Routine [facility] Sliding Scale Insulin - Lispro (HumaLOG) + Fsbg Testing 2019-11 22:30: 00 10-02 14:18 :31 No Subcutaneo us, Q4H, First dose on 09/29/20 at 1630, Until Discontinu ed, Routine [facility] metoprolol succinate XL (TOPROL XL) tablet 12.5 mg 2019-11 17:04: 00 09-29 19:00 :00 No 12.5mg 12.5 mg, Oral, ONCE, 1 dose, 09/29/20 at 1115, Routine [facility] furosemide (LASIX) injection 40 mg 2019-11 15:41: 00 09-29 17:11 :00 No 40mg 40 mg, Slow IV Push, ONCE, 1 dose, 09/29/20 at 0945, Routine [facility] losartan (COZAAR) tablet 12.5 mg 2019-11 15:00: 00 Yes 12.5mg 12.5 mg, Oral, DAILY, First dose on 09/29/20 at 0900, Until Discontinu ed, Routine [facility] Sliding Scale Insulin - Lispro (HumaLOG) + Fsbg Testing 2019-11 14:00: 00 09-29 22:24 :01 No Subcutaneo us, TID MEALS+HS, First dose (after last modificati on) on 09/29/20 at 0800, Until Discontinu ed, Routine [facility] metoprolol succinate XL (TOPROL XL) tablet 37.5 mg 2019-11 14:00: 00 09-29 17:04 :42 No 37.5mg 37.5 mg, Oral, BID, First dose (after last modificati on) on 09/29/20 at 0800, Until Discontinu ed, Routine [facility] heparin STD 25,000 units/250ml in NS 2019-11 [...] Rang e, Dosing and Testing: &nbs p;FOR [facility], [facility] AND [facility] ONLY &nbs p; - aPTT < [...] INITIAL BOLUS OR INITIAL INFUSION RATE.
[facility] KCL (KLOR-CON M20) tablet 20 mEq 2019-11 12:00: 00 09-29 11:35 :00 No 20meq 20 mEq, Oral, ONCE, 1 dose, 09/29/20 at 0600, Routine [facility] acetaminoph en (TYLENOL) tablet 325 mg 2019-11 00:30: 33 Yes 325mg 325 mg, Oral, Q6HPRN, Starting 09/28/20 at 1830, Until Discontinu ed, Routine, headache [facility] heparin 1,000 unit/mL injection 2019-11 18:32: 00 09-28 18:32 :00 No Slow IV Push, TITRATE - FOR PROCEDURE USE, 1 dose, Starting Thu09/28/20 at 1232, Until Thu09/28/20 at 1232, Routine [facility] nitroglycer in (TRIDIL) 2 mg in 10 mL D5W for Cardiac Cath 2019-11 18:32: 00 09-28 18:32 :00 No Intravenou s, TITRATE - FOR PROCEDURE USE, 1 dose, Starting Thu09/28/20 at 1232, Until Thu09/28/20 at 1232, Routine [facility] midazolam (VERSED) injection 2019-11 18:31: 00 09-28 18:31 :00 No IV Push, TITRATE - FOR PROCEDURE USE, 1 dose, Starting Thu09/28/20 at 1231, Until Thu09/28/20 at 1231, Routine [facility] FENTanyl PF (SUBLIMAZE (PF)) injection 2019-11 18:28: 20 09-28 18:28 :20 No Slow IV Push, TITRATE - FOR PROCEDURE USE, 1 dose, Starting Thu09/28/20 at 1228, Until Thu09/28/20 at 1228, Routine [facility] lidocaine 1% (PF) (XYLOCAINE) injection 2019-11 18:14: 00 09-28 18:14 :00 No Infiltrati on, TITRATE - FOR PROCEDURE USE, 1 dose, Starting Thu09/28/20 at 1214, Until Thu09/28/20 at 1214, Routine [facility] FENTanyl PF (SUBLIMAZE (PF)) injection 2019-11 18:00: 00 09-28 18:00 :00 No Slow IV Push, TITRATE - FOR PROCEDURE USE, 1 dose, Starting Thu09/28/20 at 1200, Until Thu09/28/20 at 1200, Routine [facility] midazolam (VERSED) injection 2019-11 18:00: 00 09-28 18:00 :00 No IV Push, TITRATE - FOR PROCEDURE USE, 1 dose, Starting Thu09/28/20 at 1200, Until 11/13/20 at 1200, Routine [facility] succ[facility] (TOPROL XL) tablet 25 mg 2019-11 15:15: 00 09-29 13:32 :40 No 25mg 25 mg, Oral, BID, First dose on Thu09/28/20 at 0915, Until Discontinu ed, Routine [facility] aspirin chewable tablet 81 mg 2019-11 15:00: 00 Yes 81mg 81 mg, Oral, DAILY, First dose on Thu09/28/20 at 0900, Until Discontinu ed, Routine [facility] pantoprazol e (PROTONIX) EC tablet 40 mg 2019-11 15:00: 00 Yes 40mg 40 mg, Oral, DAILY, First dose on Thu09/28/20 at 0900, Until Discontinu ed, Routine [facility] atorvastati n (LIPITOR) tablet 40 mg 2019-11 08:15: 00 Yes 40mg 40 mg, Oral, QHS, First dose on Thu09/28/20 at 0215, Until Discontinu ed, Routine [facility] nitroglycer in (NITROSTAT) sublingual tablet 0.4 mg 2019-11 08:02: 39 Yes .4mg 0.4 mg, Sublingual , Q5MIN PRN, Starting Thu09/28/20 at 0202, Until Discontinu ed, Routine, Chest pain [facility] furosemide (LASIX) injection 40 mg 2019-11 08:00: 00 09-29 15:41 :59 No 40mg 40 mg, IV Push, Q12H, First dose (after last reorder) on Thu09/28/20 at 0200, Until Discontinu ed, ANTON [facility] Sliding Scale Insulin - Lispro (HumaLOG) + Fsbg Testing 2019-11 06:00: 00 09-29 13:30 :59 No Subcutaneo us, Q6H ABX, First dose on Thu09/28/20 at 0000, Until Discontinu ed, Routine [facility] metoprolol tartrate (LOPRESSOR) tablet 25 mg 2019-11 05:00: 00 2020- 11-13 15:12 :41 No 25mg 25 mg, Oral, BID, First dose on Mariael[place] 09/27/20 at 2300, Until Discontinu ed, Routine [facility] heparin STD 25,000 units/250ml in NS 2019-11 [...] Rang e, Dosing and Testing: &nbs p;FOR [facility], [facility], AND [facility] ONLY &nbs p; - aPTT < [...] INITIAL BOLUS OR INITIAL INFUSION RATE.
[facility] aspirin tablet 325 mg 2019-11 04:15: 00 09-28 03:38 :00 No 325mg 325 mg, Oral, ONCE, 1 dose, [place] 09/27/20 at 2215, Routine [facility] iohexol (OMNIPAQUE 350 BULK-100 mL) injection 100 mL 2019-11 21:45: 00 09-27 21:45 :00 No 100mL 100 mL, Intravenou s, ONCE, 1 dose, [place] 09/27/20 at 1545, Routine [facility] furosemide (LASIX) injection 40 mg 2019-11 21:45: 00 09-27 21:04 :00 No 40mg 40 mg, IV Push, ONCE, 1 dose, [place] 09/27/20 at 1545, ANTON [facility] heparin 25,000 Units/250 mL (Premixed Bag) in [...] Rang e, Dosing and Testing: &nbs p;FOR [facility] AND [facility] ONLY &nbs p; - aPTT < [...] INITIAL BOLUS OR INITIAL INFUSION RATE.
[facility] heparin 1000 unit/mL injection Soln 4,000 Units 2019-11 20:45: 00 09-27 20:45 :00 No 4000U 4,000 Units, IV Push, ONCE, 1 dose, [place] 09/27/20 at 1445, Routine [facility] 81 mg capsule Take 1 capsule [...] route in the morning for 30 days. [facility] spironolact one 25 mg [...] x 5/32" USE DIRECTED 4 TIMES DAILY [facility] BD Ultra-Fine Mini Pen Needle 31 gauge x 3/16" BD Ultra-Fine Mini Pen Needle 31 gauge x 3/16" No BD Ultra-Fine Mini Pen Needle 31 gauge x 3/16" [facility] metoprolol succinate ER 100 [...] bromide 21 mcg (0.03 %) nasal spray [facility] albuterol sulfate HFA 90 mcg/actuati on aerosol inhaler INHALE 2 PUFFS BY MOUTH EVERY 4 TO 6 HOURS NEEDED albuterol sulfate HFA 90 mcg/actuati on aerosol inhaler INHALE 2 PUFFS BY MOUTH EVERY 4 TO 6 HOURS NEEDED No albuterol sulfate HFA 90 mcg/actuat ion aerosol inhaler INHALE 2 PUFFS BY MOUTH EVERY 4 TO 6 HOURS NEEDED [facility] cefdinir 300 mg capsule TAKE 1 CAPSULE BY MOUTH TWICE DAILY FOR 10 DAYS cefdinir 300 mg capsule TAKE 1 CAPSULE BY MOUTH TWICE DAILY FOR 10 DAYS No cefdinir 300 mg capsule TAKE 1 CAPSULE BY MOUTH TWICE DAILY FOR 10 DAYS [facility] sulfamethox azole 800 mg-trimetho prim 160 mg tablet TAKE 1 TABLET BY MOUTH TWICE DAILY FOR 14 DAYS sulfamethox azole 800 mg-trimetho prim 160 mg tablet TAKE 1 TABLET BY MOUTH TWICE DAILY FOR 14 DAYS No sulfametho xazole 800 mg-trimeth oprim 160 mg tablet TAKE 1 TABLET BY MOUTH TWICE DAILY FOR 14 DAYS [facility] Fiasp FlexTouch U-100 Insulin [...] glucose >200 using Cf 1:20; TDD 50 [facility] levofloxaci n 500 mg [...] by subcutaneo us route for 30 days. [facility] Mounjaro 15 mg/0.5 mL [...] by subcutaneo us route for 30 days. [facility] omeprazole 40 mg capsule,del [...] START UNTIL ALL ANTIBIOTIC S ARE FINISHED [facility] Immunizations Ordered Immunization Name Filled Immunization Name Date Status Comments Source [id number]< sup>1</sup> 2021-02-13 00:00:00 Completed Radha Santana COVID-19, mRNA, LNP-S, PF, 100 mcg/0.5 mL dose (Moderna) - ML COVID-19, mRNA, LNP-S, PF, 100 mcg/0.5 mL dose (Moderna) - ML Unknown Completed [facility] Vital Signs Vital Name Observation [...] (Body Mass Index) 2024-04-18 00:00:00 35.3 kg/m2 [facility] Height 2024-04-18 00:00:00 76 [in_i] [facility] BP Systolic 2023-10-20 00:00:00 143 mm[Hg] [facility] BMI (Body Mass Index) 2023-10-20 00:00:00 35.9 kg/m2 [facility] BP Diastolic 2023-10-20 00:00:00 85 mm[Hg] [facility] Body Weight 2023-10-20 00:00:00 295 [lb_av] [facility] Height 2023-10-20 00:00:00 76 [in_i] [facility] BP Diastolic 2023-04-20 00:00:00 92 mm[Hg] [facility] Height 2023-04-20 00:00:00 76 [in_i] [facility] BMI (Body Mass Index) 2023-04-20 00:00:00 36.6 kg/m2 [facility] BP Systolic 2023-04-20 00:00:00 154 mm[Hg] [facility] Body Weight 2023-04-20 00:00:00 300.6 [lb_av[facility] Diastolic 2023-01-13 00:00:00 73 mm[Hg] [facility] Height 2023-01-13 00:00:00 76 [in_i] [facility] BMI (Body Mass Index) 2023-01-13 00:00:00 37.5 kg/m2 [facility] BP Systolic 2023-01-13 00:00:00 120 mm[Hg] [facility] Body Weight 2023-01-13 00:00:00 308 [lb_av] [facility] BP Diastolic 2022-07-25 00:00:00 82 mm[Hg] [facility] Height 2022-07-25 00:00:00 76 [in_i] [facility] BMI (Body Mass Index) 2022-07-25 00:00:00 37.7 kg/m2 [facility] BP Systolic 2022-07-25 00:00:00 134 mm[Hg] [facility] Body Weight 2022-07-25 00:00:00 310 [lb_av] [facility] BP Diastolic 2022-01-17 00:00:00 86 mm[Hg] [facility] Height 2022-01-17 00:00:00 76 [in_i] [facility] BMI (Body Mass Index) 2022-01-17 00:00:00 41.1 kg/m2 [facility] BP Systolic 2022-01-17 00:00:00 149 [...] rate 2021-05-23 16:31:00 76 /min [facility] Body height 2021-05-23 16:31:00 193 [facility] Body weight 2021-05-23 16:31:00 167.377 kg [facility] BMI 2021-05-23 16:31:00 44.92 kg/m2 [facility] Systolic blood pressure 2021-01-09 20:45:00 132 mm[Hg] [facility] Diastolic blood pressure 2021-01-09 20:45:00 82 mm[Hg] [facility] Heart rate 2021-01-09 20:45:00 78 /min [facility] Body temperature 2021-01-09 20:45:00 36.72 [facility] Body height 2021-01-09 20:45:00 193 cm [facility] Body weight 2021-01-09 20:45:00 163.93 kg [facility] BMI 2021-01-09 20:45:00 43.99 kg/m2 [facility] Oxygen saturation in Arterial blood by Pulse oximetry 2021-01-09 20:45:00 97 /min [facility] Systolic blood pressure 2021-01-09 20:45:00 132 mm[Hg] [facility] Diastolic blood pressure 2021-01-09 20:45:00 82 mm[Hg] [facility] Heart rate 2021-01-09 20:45:00 78 /min [facility] Body temperature 2021-01-09 20:45:00 36.72 [facility] Body height 2021-01-09 20:45:00 193 cm [facility] Body weight 2021-01-09 20:45:00 163.93 kg [facility] BMI 2021-01-09 20:45:00 43.99 kg/m2 [facility] Oxygen saturation in Arterial blood by Pulse oximetry 2021-01-09 20:45:00 97 /min [facility] Systolic blood pressure 2020-12-13 21:25:00 128 mm[Hg] [facility] Diastolic blood pressure 2020-12-13 21:25:00 82 mm[Hg] [facility] Heart rate 2020-12-13 21:25:00 95 /min [facility] Body temperature 2020-12-13 21:25:00 36.78 [facility] Body height 2020-12-13 21:25:00 193 cm [facility] Body weight 2020-12-13 21:25:00 165.518 kg [facility] BMI 2020-12-13 21:25:00 44.42 kg/m2 [facility] Oxygen saturation in Arterial blood by Pulse oximetry 2020-12-13 21:25:00 96 /min [facility] Systolic blood pressure 2020-10-10 21:52:00 117 mm[Hg] [facility] Diastolic blood pressure 2020-10-10 21:52:00 82 mm[Hg] [facility] Heart rate 2020-10-10 21:52:00 81 /min [facility] Body temperature 2020-10-10 21:52:00 36.39 [facility] Respiratory rate 2020-10-10 21:52:00 18 /min [facility] Body height 2020-10-10 21:52:00 193 cm [facility] Body weight 2020-10-10 21:52:00 159.802 kg [facility] BMI 2020-10-10 21:52:00 42.88 kg/m2 [facility] Oxygen saturation in Arterial blood by Pulse oximetry 2020-10-10 21:52:00 98 /min [facility] Systolic blood pressure 2020-10-03 21:56:00 105 mm[Hg] [facility] Diastolic blood pressure 2020-10-03 21:56:00 56 mm[Hg] [facility] Heart rate 2020-10-03 21:56:00 87 /min [facility] Body temperature 2020-10-03 21:56:00 37 [facility] Respiratory rate 2020-10-03 21:56:00 20 /min [facility] Oxygen saturation in Arterial blood by Pulse oximetry 2020-10-03 21:56:00 96 /min [facility] Body weight 2020-10-03 01:52:00 156.31 kg [facility] BMI 2020-10-03 01:52:00 41.95 kg/m2 [facility] Body height 2020-10-02 20:10:00 193 cm [facility] Heart Rate 2021-12-27 18:23:00 [facility] Systolic (mm Hg) 2021-12-27 18:23:00 [facility] Diastolic (mm Hg) 2021-12-27 18:23:00 [facility] Height 2021-12-27 18:23:00 193.04 cm [facility] [place] Weight 2021-12-27 18:23:00 [facility] BMI Calculated 2021-12-27 18:23:00 [facility] [place] Systolic (mm Hg) 2021-08-29 22:30:00 [facility] [place] Diastolic (mm Hg) 2021-08-29 22:30:00 [facility] [place] Height 2021-08-29 22:30:00 193.04 cm [facility] [place] Weight 2021-08-29 22:30:00 [facility] BMI Calculated 2021-08-29 22:30:00 [facility] [place] Heart Rate 2021-07-29 17:00:00 [facility] Respitory Rate 2021-07-29 17:00:00 [facility] [place] Systolic (mm Hg) 2021-07-29 17:00:00 [facility] [place] Diastolic (mm Hg) 2021-07-29 17:00:00 [facility] Heart Rate 2021-07-29 13:00:00 [facility] [place] Respitory Rate 2021-07-29 13:00:00 [facility] Systolic (mm Hg) 2021-07-29 13:00:00 [facility] [place] Diastolic (mm Hg) 2021-07-29 13:00:00 [facility] Temperature Oral (F) 2021-07-29 09:00:00 98.4 F [facility] [place] Temperature Oral (F) 2021-07-29 05:00:00 97.4 F [facility] [place] Heart Rate 2021-07-29 05:00:00 [facility] [place] Respitory Rate 2021-07-29 05:00:00 [facility] Systolic (mm Hg) 2021-07-29 05:00:00 [facility] Diastolic (mm Hg) 2021-07-29 05:00:00 [facility] [place] Temperature Oral (F) 2021-07-29 01:00:00 97.9 F [facility] Heart Rate 2021-07-29 01:00:00 [facility] Respitory Rate 2021-07-29 01:00:00 [facility] Systolic (mm Hg) 2021-07-29 01:00:00 [facility] Diastolic (mm Hg) 2021-07-29 01:00:00 [facility] [place] Temperature Oral (F) 2021-07-28 20:55:00 97.9 F [facility] Heart Rate 2021-07-28 20:55:00 [facility] Respitory Rate 2021-07-28 20:55:00 [facility] [place] Systolic (mm Hg) 2021-07-28 20:55:00 [facility] Diastolic (mm Hg) 2021-07-28 20:55:00 [facility] [place] Height 2021-07-25 08:56:00 193.04 cm [facility] [place] Height 2021-07-25 04:45:00 193.04 cm [facility] [place] Height 2021-07-25 00:56:00 193.04 cm [facility] Weight 2021-07-23 14:12:00 [facility] BMI Calculated 2021-07-23 14:12:00 [facility] [place] Systolic (mm Hg) 2021-06-05 19:30:00 [facility] [place] Diastolic (mm Hg) 2021-06-05 19:30:00 [facility] [place] Respitory Rate 2021-06-05 19:30:00 [facility] Systolic (mm Hg) 2021-06-05 19:00:00 [facility] Diastolic (mm Hg) 2021-06-05 19:00:00 [facility] Respitory Rate 2021-06-05 19:00:00 M [facility] Systolic (mm Hg) 2021-06-05 18:30:00 [facility] [place] Diastolic (mm Hg) 2021-06-05 18:30:00 [facility] [place] Respitory Rate 2021-06-05 18:30:00 [facility] [place] Heart Rate 2021-06-05 17:30:00 [facility] Heart Rate 2021-06-05 17:25:00 [facility] [place] Heart Rate 2021-06-05 17:20:00 [facility] [place] Height 2021-06-05 15:33:00 193.04 cm [facility] Weight 2021-06-05 15:33:00 [facility] BMI Calculated 2021-06-05 15:33:00 [facility] [place] Systolic (mm Hg) 2021-05-23 15:14:00 [facility] Diastolic (mm Hg) 2021-05-23 15:14:00 [facility] Heart Rate 2021-05-23 15:14:00 [facility] [place] Height 2021-05-23 15:14:00 182.88 cm [facility] Weight 2021-05-23 15:14:00 [facility] [place] BMI Calculated 2021-05-23 15:14:00 M [facility] Systolic (mm Hg) 2021-04-18 17:15:00 [facility] [place] Diastolic (mm Hg) 2021-04-18 17:15:00 [facility] Systolic (mm Hg) 2021-04-18 17:00:00 [facility] [place] Diastolic (mm Hg) 2021-04-18 17:00:00 [facility] [place] Systolic (mm Hg) 2021-04-18 16:45:00 [facility] Diastolic (mm Hg) 2021-04-18 16:45:00 [facility] [place] Respitory Rate 2021-04-18 16:30:00 M [facility] Respitory Rate 2021-04-18 16:15:00 [facility] [place] Respitory Rate 2021-04-18 16:00:00 [facility] [place] Height 2021-04-18 12:47:00 152.4 cm [facility] [place] Weight 2021-04-18 12:47:00 [facility] [place] BMI Calculated 2021-04-18 12:47:00 [facility] Systolic (mm Hg) 2021-03-22 16:01:00 [facility] [place] Diastolic (mm Hg) 2021-03-22 16:01:00 [facility] Heart Rate 2021-03-22 16:01:00 [facility] Height 2021-03-22 16:01:00 185.42 cm [facility] Weight 2021-03-22 16:01:00 [facility] BMI Calculated 2021-03-22 16:01:00 M yoditriedy Santana Procedures Procedure Date / Time Performed Performing Clinician Source ECG 12-LEAD 2024-03-08 [facility]:28[facility] 2023-03-02 16:21[facility]AD 2021-08-29 19:24:52 System, Prov ider Not In [facility] ECG 12-LEAD 2021-08-29 19:24:52 System, Prov ider Not In [facility] ECG 12-LEAD 2021-08-08 00:00:00 Moi Estrada [facility] XR CHEST 2 VIEWS 2021-08-07 14:03:54 Vishal On license of [facility] XR CHEST 2 VIEWS 2021-08-07 14:03:54 Vishal On license of [facility] XR CHEST 2 VIEWS 2021-07-23 17:27:31 Vishal On license of [facility] XR CHEST 2 VIEWS 2021-07-23 17:27:31 Vishal On license of [facility] BREATHING CAPACITY TEST 2021-07-23 15:25:28 Brittanie Estrada [facility] ECG 12-LEAD 2021-07-16 00:00:00 Moi Estrada [facility] US CAROTID DOPPLER BILATERAL 2021-06-26 19:01:34 Vishal On license of [facility] US CAROTID DOPPLER BILATERAL 2021-06-26 19:01:34 Vishal On license of [facility] CT CHEST WO CONTRAST 2021-06-26 18:26:52 Vishal On license of [facility] CT CHEST WO CONTRAST 2021-06-26 18:26:52 Vishal On license of [facility] US DUP-SCAN HEMO COMPL UNI 2021-06-21 14:56:36 Moi Estrada [facility] US DUP-SCAN HEMO COMPL [facility] 2021-06-21 14:56:36 Moi Estrada [facility] ECG 12-LEAD 2021-06-11 00:00:00 Moi Estrada [facility] th ECG 12-LEAD 2021-06-04 18:33:00 Mk Porter [facility] MRI CARDIAC MORPHOLOGY AND FUNCTION W AND WO IV CONTRAST 2021-05-11 22:26[facility] AND FUNCTION W AND WO IV CONTRAST 2021-05-11 22:26[facility]00 [facility]PPLY JUSTIFICATION 2021-04-25 05:01:00 Doc emmanuelle Unassigned, [facility] DME/SUPPLY JUSTIFICATION 2021-04-10 05:01:00 Doc emmanuelle Unassigned, [facility] ASSIGNMENT OF BENEFITS 2020-10-10 21:36:15 Ifeoma jonas Unassigned, [facility] POCT GLUCOSE (AUTOMATED) 2020-10-03 22:51:00 Itu Oleksandr Mejía [facility] POCT GLUCOSE (AUTOMATED) 2020-10-03 21:03:00 Itu Oleksandr Mejía [facility] POCT GLUCOSE (AUTOMATED) 2020-10-03 20:02:00 Itu Oleksandr Mejía [facility] POCT GLUCOSE (AUTOMATED) 2020-10-03 17:25:00 Itu Oleksandr Mejía [facility] POCT GLUCOSE (AUTOMATED) 2020-10-03 13:40:00 Itu Oleksandr Mejía [facility] MAGNESIUM 2020-10-03 11:08:00 Shira Lund [facility] BASIC METABOLIC PANEL (NA, K, CL, CO2, GLUCOSE, BUN, CREATININE, CA) 2020-10-03 11:08:00 Shira Lund [facility] N-TERMINAL PRO-BNP 2020-10-03 11:08:00 Marlin Francis [facility] POCT GLUCOSE (AUTOMATED) 2020-10-03 02:16:00 Itu Oleksandr Mejía [facility] POCT GLUCOSE (AUTOMATED) 2020-10-03 00:28:00 Oleksandr Harris [facility] TRANSESOPHAGEAL ECHO 2020-10-02 21:32:30 Emily Kendall [facility] POCT GLUCOSE (AUTOMATED) 2020-10-02 20:07:00 Itu Oleksandr Mejía [facility] POCT GLUCOSE (AUTOMATED) 2020-10-02 16:10:00 Itu Oleksandr Mejía [facility] POCT GLUCOSE (AUTOMATED) 2020-10-02 14:11:00 Itu Oleksandr Mejía [facility] MAGNESIUM 2020-10-02 11:34:00 Shira Lund [facility] BASIC METABOLIC PANEL (NA, K, CL, CO2, GLUCOSE, BUN, CREATININE, CA) 2020-10-02 11:34:00 Shira Lund [facility] POCT GLUCOSE (AUTOMATED) 2020-10-02 10:34:00 Itu Oleksandr Mejía [facility] POCT GLUCOSE (AUTOMATED) 2020-10-02 06:06:00 Itu Oleksandr Mejía [facility] Echocardiogram<sup>1</sup> 2020-10-02 06:00:00 [facility] POCT GLUCOSE (AUTOMATED) 2020-10-02 02:19:00 Itu Oleksandr Mejía [facility] POCT GLUCOSE (AUTOMATED) 2020-10-01 23:01:00 Itu Oleksandr Mejía [facility] NM MYOCARDIAL VIABILITY REST 2020-10-01 21:55:48 Oleksandr Santiago [facility] POCT GLUCOSE (AUTOMATED) 2020-10-01 16:26:00 Itu Oleksandr Mejía [facility] POCT GLUCOSE (AUTOMATED) 2020-10-01 13:39:00 Itu Oleksandr Mejía [facility] MAGNESIUM 2020-10-01 11:14:00 Shira Lund [facility] BASIC METABOLIC PANEL (NA, K, CL, CO2, GLUCOSE, BUN, CREATININE, CA) 2020-10-01 11:14:00 Shira Lund [facility] POCT GLUCOSE (AUTOMATED) 2020-10-01 10:38:00 Itu Oleksandr Mejía [facility] POCT GLUCOSE (AUTOMATED) 2020-10-01 05:48:00 Itu rrrosalva-RuleOleksandr [facility] POCT GLUCOSE (AUTOMATED) 2020-10-01 01:14:00 Itu rrrosalva-Oleksandr Guevara [facility] POCT GLUCOSE (AUTOMATED) 2020-09-30 22:43:00 Itu serenity-Oleksandr Guevara [facility] POCT GLUCOSE (AUTOMATED) 2020-09-30 18:40:00 Itu serenity-Oleksandr Guevara [facility] POCT GLUCOSE (AUTOMATED) 2020-09-30 15:22:00 Itu Oleksandr Mejía [facility] ECHO ROUTINE W/DOPPLER COLOR 2020-09-30 15:07:37 Eva Limon [facility] MAGNESIUM 2020-09-30 10:50:00 Shira Lund [facility] BASIC METABOLIC PANEL (NA, K, CL, CO2, GLUCOSE, BUN, CREATININE, CA) 2020-09-30 10:50:00 Ashely [facility] ACTIVATED PARTIAL THRMPLAS RAY 2020-09-30 10:50:00 Huy Clay [facility] POCT GLUCOSE (AUTOMATED) 2020-09-30 10:46:00 Itu rrrosalva-Oleksandr Guevara [facility] POCT GLUCOSE (AUTOMATED) 2020-09-30 05:37:00 Itu serenity-Oleksandr Guevara [facility] POCT GLUCOSE (AUTOMATED) 2020-09-30 03:06:00 Itu serenity-Oleksandr Guevara [facility] POCT GLUCOSE (AUTOMATED) 2020-09-30 00:32:00 Itu rrkwadwoaga-PaolaOleksandr [facility] POCT GLUCOSE (AUTOMATED) 2020-09-29 21:52:00 Itu Oleksandr Mejía [facility] POCT GLUCOSE (AUTOMATED) 2020-09-29 18:30:00 Itu Oleksandr Mejía [facility] POCT GLUCOSE (AUTOMATED) 2020-09-29 14:48:00 Itu Oleksandr Mejía [facility] POCT GLUCOSE (AUTOMATED) 2020-09-29 11:31:00 Itu Oleksandr Mejía [facility] POCT GLUCOSE (AUTOMATED) 2020-09-29 07:37:00 Itu Oleksandr Mejía [facility] MAGNESIUM 2020-09-29 07:30:00 Shira Lund [facility] TROPONIN I 2020-09-29 07:30:00 Eva Limon [facility] BASIC METABOLIC PANEL (NA, K, CL, CO2, GLUCOSE, BUN, CREATININE, CA) 2020-09-29 07:30:00 Shira Lund [facility] GLYCOSYLATED HEMOGLOBIN (A1C) 2020-09-29 07:30:00 Lucille Raymundo [facility] ACTIVATED PARTIAL THRMPLAS RAY 2020-09-29 07:30:00 Braxton [facility] POCT GLUCOSE (AUTOMATED) 2020-09-29 04:36:00 Itu Oleksandr Mejía [facility] POCT GLUCOSE (AUTOMATED) 2020-09-29 01:31:00 Itu Oleksandr Mejía [facility] ACTIVATED PARTIAL THRMPLAS RAY 2020-09-28 22:33:00 [facility] RHYTHM STRIP 2020-09-28 20:09:53 Emily Kendall [facility] POCT GLUCOSE (AUTOMATED) 2020-09-28 12:15:00 Itu Oleksandr Mejía [facility] TROPONIN I 2020-09-28 09:42:00 Eva Limon [facility] ACTIVATED PARTIAL THRMPLAS RAY 2020-09-28 09:42:00 Braxton [facility] POCT GLUCOSE (AUTOMATED) 2020-09-28 06:29:00 Oleksandr Harris [facility] Cardiac catheterization, left heart<sup>2</sup> 2020-09-28 06:00:00 Radha Santana EKG-12 LEAD 2020-09-28 04:44:41 Oleksandr Winkler [facility] TROPONIN I 2020-09-28 03:26:00 Eva Limon [facility] LIPID PANEL (14054)(TOTAL CHOLESTEROL, TRIGLYCERIDES, HDL) 2020-09-28 03:26:00 Braxton [facility] ACTIVATED PARTIAL THRMPLAS RAY 2020-09-28 03:26:00 Braxton [facility] CT CHEST PULMONARY ANGIOGRAM 2020-09-27 21:31:11 Elisabet Deshpande [facility] LACTATE DEHYDROGENASE 2020-09-27 21:05:00 Mara Deshpande [facility] LIPASE 2020-09-27 19:09:00 Elisabet Deshpande [facility] TROPONIN I 2020-09-27 19:09:00 Elisabet Deshpande [facility] HEPATIC FUNCTION PANEL (93814) (ALB,T.PRO,BILI T,BU/BC,ALT,AST,ALK PHOS) 2020-09-27 19:09:00 Elisabet Deshpande [facility] BASIC METABOLIC PANEL (NA, K, CL, CO2, GLUCOSE, BUN, CREATININE, CA) 2020-09-27 19:09:00 Elisabet Deshpande [facility] CBC WITH DIFF 2020-09-27 19:09:00 Elisabet Deshpande [facility] PROTHROMBIN TIME / INR 2020-09-27 19:09:00 Yesenia Deshpande ala [facility] D-DIMER 2020-09-27 19:09:00 Elisabet Deshpande [facility] ACTIVATED PARTIAL THRMPLAS RAY 2020-09-27 19:09:00 Elisabet Deshpande [facility] N-TERMINAL PRO-BNP 2020-09-27 19:09:00 Elisabet Deshpande [facility] COVID-19 (ID NOW RAPID TESTING) 2020-09-27 19:09:00 Elisabet Deshpande [facility] LAB ONLY COVID INTERPRETATION 2020-09-27 19:09:00 Elisabet Deshpande [facility] HB ECG ROUTINE & RHYTHM STRIP 2020-09-27 18:52:44 Elisabet Deshpande [facility] XR CHEST 1 VW 2020-09-27 18:52:03 [facility] PRIVAC[facility] PRACT[facility] 2020-09-27 18:03:30 Doctor Unassigned, [facility] CARDIAC CATHETERIZATION 2019-11-16 00:00:00 [facility] RIGHT SHOULDER SURGERY [facility] [place] RIGHT FOOT SURGERY [facility] APPENDECTOMY [facility] Encounters Start Date/Time End Date/Time Encounter Type Admission Type Attending [facility] Care Facility Care Department Encounter ID Source 2023-03-27 11:45:47 Outpatient [facility] [id number] [facility] 2023-01-05 12:32:47 Outpatient [facility] [id number] [facility] 2022-12-29 18:46:44 Outpatient [facility] [id number] [facility] 2022-08-27 18:04:34 Outpatient [facility] [id number] [facility] 2022-05-20 18:18:22 Outpatient KJ LOPEZ [facility] [id number] [facility] 2022-02-14 14:40:31 Outpatient [facility] [id number] [facility] 2022-02-12 13:10:48 Outpatient BAYTN [facility] [id number] [facility] 2021-12-04 08:31:55 Outpatient KJ LOPEZ [facility] [id number] [facility] 2021-10-23 01:04:21 Outpatient MOI ESTRADA [facility] [id number] [facility] 2021-07-29 09:32:19 Outpatient MOI ESTRADA [facility] [id number] [facility] 2021-07-19 09:55:12 Outpatient MOI ESTRADA [facility] [id number] [facility] 2021-06-10 10:07:33 Outpatient MOI ESTRADA [facility] [id number] [facility] 2021-05-23 10:39:56 Outpatient MOI ESTRADA [facility] [id number] [facility] 2021-05-21 08:47:00 Outpatient MK PORTER [facility] [id number] [facility] 2021-03-26 01:03:33 Outpatient KJ LOPEZ [facility] [id number] [facility] 2024-10-06 00:00:00 2024-10-06 14:18:56 Refill Kj Lopez [facility] [id number] [facility] [id number] [facility] 2024-04-18 00:00:00 2024-04-18 00:00:00 Garth Rios MD: [id number] [facility] [place] [facility], [address], [place] [address] , Ph. [facility] - [place] - VM_HOU_Shad [facility] [id number] [facility] e 2024-03-08 09:49:00 2024-03-08 23:59:00 Outpatient KJ LOPEZ [facility] CAR [id number] [facility] 2024-03-08 09:45:00 2024-03-08 09:45:00 External Contact KJ LOPEZ [facility] LOCATION ..[id number] [facility] 2024-02-25 00:00:00 2024-02-25 00:00:00 Outpatient Gabriel_T_HO U_MD [facility] [id number] [facility] e 2023-10-21 00:00:00 2023-10-21 00:00:00 Outpatient Gabriel_T_HO U_MD [facility] [id number] [facility] 2023-10-20 00:00:00 2023-10-20 00:00:00 Outpatient Daniel_T_HO U_ VFP VFP [id number] [facility] 2023-10-20 00:00:00 2023-10-20 00:00:00 Garth Rios MD: [id number], [place] [address] , Ph. [phone] VFP [place] - [facility] - [place] - VM_HOU_Shad ow [place] [id number] [facility] 2023-10-17 00:00:00 2023-10-17 00:00:00 Outpatient Daniel_T_HO U_MD VFP VFP [id number] [facility] 2023-09-01 09:31:00 2023-09-01 23:59:00 Outpatient KJ LOPZE [facility] [id number] [facility] 2023-09-01 10:45:00 2023-09-01 10:45:00 External Contact [facility] [id number] [facility] 2023-04-20 00:00:00 2023-04-20 00:00:00 Outpatient Daniel_T VFP VFP [id number] [facility] 2023-04-20 00:00:00 2023-04-20 00:00:00 Outpatient Daniel_T VFP VFP [id number] [facility] 2023-04-20 00:00:00 2023-04-20 00:00:00 Garth Rios MD: [id number], [address], [place] [address] , Ph. VFP [facility] - [place] - VM_HOU_Shad ow [place] [id number] [facility] 2023-04-17 00:00:00 2023-04-17 00:00:00 Outpatient Daniel_T VFP VFP [id number] [facility] 2023-03-02 11:03:00 2023-03-02 23:59:00 Outpatient KJ LOPEZ [facility] [id number] [facility] 2023-03-02 10:30:00 2023-03-02 10:30:00 External Contact KJ LOPEZ EXT [facility] LOCATION [id number] [facility] 2023-01-13 00:00:00 2023-01-13 00:00:00 Outpatient Daniel_T VFP [facility] [id number] [facility] 2023-01-13 00:00:00 2023-01-13 00:00:00 Outpatient Daniel_T VFP [facility] [id number] [facility] Pract[facility] e 2023-01-13 00:00:00 2023-01-13 00:00:00 Garth Rios MD: [id number] [facility], [address], [place] [address] , Ph. [facility] - [facility] - [place] [facility] [id number] e 2022-09-10 09:39:00 2022-09-10 23:59:00 Outpatient ZOILACELSOIT [facility] [id number] [facility] 2022-08-26 10:09:00 2022-08-26 23:59:00 Outpatient ZOILACELSO BOCANEGRAIT [facility] CAR [id number] [facility] 2022-08-26 10:15:00 2022-08-26 10:15:00 Office Visit ZOILACELSOIT EXT [facility] LOCATION [id number] [facility] 2022-07-28 00:00:00 2022-07-28 00:00:00 Outpatient Daniel_T VFP VF [id number] [facility] 2022-07-25 00:00:00 2022-07-25 00:00:00 Outpatient Daniel_T VFP VFP [id number] [facility] 2022-07-25 00:00:00 2022-07-25 00:00:00 Garth Rios MD: [id number], [place] [address] , Ph. VFP [place] - [facility] - VM_HOU_Shad ow [place] [id number] [facility] 2022-07-24 00:00:00 2022-07-24 00:00:00 Outpatient Daniel_T VFP VFP [id number] [facility] 2022-02-24 00:00:00 2022-02-24 00:00:00 Outpatient Daniel_T VFP VFP [id number] [facility] 2022-01-30 05:03:00 2022-01-30 05:03:00 Outpatient Daniel_T VFP VFP [id number] [facility] 2022-01-17 00:00:00 2022-01-17 00:00:00 Garth Rios MD: [id number], [facility] [address], [place] [address] , Ph. Daniel_T VFP [place] - [facility] - VM_HOU_Shad ow [place] [id number] [facility] 2021-12-27 15:53:00 2021-12-28 05:59:00 Outpatient Ryan jonas [facility] [place] [id number] 09 [place] 2021-12-27 09:53:00 2021-12-27 23:59:00 Outpatient KJ LOPEZ [facility] CAR [id number] [facility] 2021-12-25 07:43:00 2021-12-25 07:43:00 Outpatient Daniel_T VFP VFP [id number] [facility] 2021-12-23 19:05:00 2021-12-24 05:59:00 Outpt Diag Services nullFlavo r [facility] Outpatient Imaging [place] [id number] 03 [place] 2021-12-17 11:00:00 2021-12-17 13:01:59 Office Visit Moi Estrada [facility] 4 [id number] [facility] 2021-09-10 00:00:00 2021-09-10 00:00:00 EXT [facility] OP EXT MSRDP LOCATION [id number] [facility] 2021-09-10 00:00:00 2021-09-10 00:00:00 EXT [facility] OP EXT MSR[facility] LOCATION [id number] [facility] 2021-08-29 18:52:00 2021-08-30 04:59:00 Outpatient nullFlavo r [facility], [facility] [place] [id number] 04 [place] 2021-08-29 13:52:00 2021-08-29 23:59:00 Outpatient KJ LOPEZ [facility] CAR [id number] [facility] 2021-08-29 13:57:55 2021-08-29 14:12:55 Office Visit Kj Lopez EXT MSRDP LOCATION 1.2.840.114 350.1.13.58 9.2.7.2.686 [id number] [facility] 2021-08-29 13:57:55 2021-08-29 14:12:55 Office Visit ZOILA KJ EXT MSRDP LOCATION 1.2.840.114 350.1.13.58 9.2.7.2.686 [id number] [facility] 2021-08-08 08:55:09 2021-08-08 10:19:56 Office Visit Moi Estrada [facility] 4 1.2.840.114 350.1.13.58 9.2.7.2.686 [id number] [facility] 2021-08-07 13:55:00 2021-08-08 04:59:00 Outpt Diag Services nullFlavo r [facility] Outpatient Imaging [facility] [id number] [place] 2021-08-07 00:00:00 2021-08-07 00:00:00 EXT [facility] OP Moi Estrada EXT MSRDP LOCATION 1.2.840.114 350.1.13.58 9.2.7.2.686 [id number] [facility] 2021-08-07 00:00:00 2021-08-07 00:00:00 Telephone Paulette Harris Jacqueline [facility] 4 1.2.840.114 350.1.13.58 9.2.7.2.686 [id number] [facility] 2021-08-07 00:00:00 2021-08-07 00:00:00 EXT [facility] OP VishalDanaan EXT MSRDP LOCATION 1.2.840.114 350.1.13.58 9.2.7.2.686 [id number] [facility] 2021-07-24 10:12:00 2021-07-29 21:27:00 Inpatient nullFlavo r [facility] [id number] [place] 2021-07-24 05:12:00 2021-07-29 16:27:00 Inpatient AIMEE MCGOWAN [facility] PUL [id number] [facility] 2021-07-29 00:00:00 2021-07-29 00:00:00 Telephone Fany Barrow Deanna [facility] 4 1.2.840.114 350.1.13.58 9.2.7.2.686 [id number] [facility] 2021-07-29 00:00:00 2021-07-29 00:00:00 Telephone aFny Barrow Deanna [facility]TP [facility] SW [facility] 4 1.2.840.114 350.1.13.58 9.2.7.2.686 [id number] [facility] 2021-07-29 00:00:00 2021-07-29 00:00:00 Orders Only Barrow, Fany Barrow, Fany UTP [facility] SW [facility] 4 1.2.840.114 350.1.13.58 9.2.7.2.686 [id number] [facility] 2021-07-29 00:00:00 2021-07-29 00:00:00 Telephone Danial Fanyjanie Barrow, Fany UTP [facility] 4 1.2.840.114 350.1.13.58 9.2.7.2.686 [id number] [facility] 2021-07-29 00:00:00 2021-07-29 00:00:00 Telephone BarrowMelissa wilcoxjanie Barrow, Fany [facility] 4 1.2.840.114 350.1.13.58 9.2.7.2.686 [id number] [facility] 2021-07-29 00:00:00 2021-07-29 00:00:00 Orders Only Barrow, Fany Barrow, Fany [facility] 4 1.2.840.114 350.1.13.58 9.2.7.2.686 [id number] [facility] 2021-07-24 07:13:11 2021-07-24 12:13:11 EXT [facility] OP Moi Estrada EXT MSRDP LOCATION 1.2.840.114 350.1.13.58 9.2.7.2.686 [id number] [facility] 2021-07-24 07:13:11 2021-07-24 12:13:11 EXT [facility] OP Moi Estrada EXT MSRDP LOCATION 1.2.840.114 350.1.13.58 9.2.7.2.686 [id number] [facility] 2021-07-23 17:10:00 2021-07-24 04:59:00 Outpt Diag Services nullFlavo r [facility] Outpatient Imaging [facility] [id number] [place] 2021-07-23 00:00:00 2021-07-23 00:00:00 EXT [facility] OP Moi Estrada EXT MSRDP LOCATION 1.2.840.114 350.1.13.58 9.2.7.2.686 [id number] [facility] 2021-07-23 00:00:00 2021-07-23 00:00:00 EXT [facility] OP Moi Estrada EXT MSRDP LOCATION 1.2.840.114 350.1.13.58 9.2.7.2.686 [id number] [facility] 2021-07-17 00:00:00 2021-07-17 00:00:00 EXT [facility] OP Moi Estrada EXT MSRDP LOCATION 1.2.840.114 350.1.13.58 9.2.7.2.686 [id number] [facility] 2021-07-17 00:00:00 2021-07-17 00:00:00 EXT [facility] OP Moi Estrada EXT MSRDP LOCATION 1.2.840.114 350.1.13.58 9.2.7.2.686 [id number] [facility] 2021-07-16 09:09:17 2021-07-16 10:52:16 Office Visit Moi Estrada [facility] 4 1.2.840.114 350.1.13.58 9.2.7.2.686 [id number] [facility] 2021-07-16 09:09:17 2021-07-16 10:52:16 Office Visit Moi Estrada [facility] 4 1.2.840.114 350.1.13.58 9.2.7.2.686 [id number] [facility] 2021-07-16 00:00:00 2021-07-16 00:00:00 Telephone Fany Barrow Deanna [facility] 4 1.2.840.114 350.1.13.58 9.2.7.2.686 [id number] [facility] 2021-07-16 00:00:00 2021-07-16 00:00:00 Telephone BarrowFany Deanna [facility] 4 1.2.840.114 350.1.13.58 9.2.7.2.686 [id number] [facility] 2021-06-26 18:08:00 2021-06-27 04:59:00 Outpt Diag Services nullFlavo r [facility] Outpatient [facility] [id number] [place] 2021-06-26 00:00:00 2021-06-26 00:00:00 EXT [facility] OP Moi Estraad EXT MSRDP LOCATION 1.2.840.114 350.1.13.58 9.2.7.2.686 [id number] [facility] 2021-06-26 00:00:00 2021-06-26 00:00:00 EXT [facility] OP Moi Estrada EXT MSRDP LOCATION 1.2.840.114 350.1.13.58 9.2.7.2.686 [id number] [facility] 2021-06-21 14:22:00 2021-06-22 04:59:00 Outpatient nullFlavo r [facility] [id number] [place] 2021-06-21 09:22:00 2021-06-21 23:59:00 Outpatient MOI ESTRADA [facility] [id number] [facility] 2021-06-21 05:45:00 2021-06-21 05:45:00 Outpatient Daniel_T VFP [facility] [id number] [place] 2021-06-19 00:00:00 2021-06-19 00:00:00 EXT [facility] OP Moi Estrada EXT MSRDP LOCATION 1..114 350.1.13.58 9.2.7.2.686 [id number] [facility] 2021-06-19 00:00:00 2021-06-19 00:00:00 Telephone Fany Barrow Deanna [facility] 4 1..114 350.1.13.58 9.2.7.2.686 [id number] [facility] 2021-06-19 00:00:00 2021-06-19 00:00:00 EXT [facility] OP Moi Estrada EXT MSRDP LOCATION 1..114 350.1.13.58 9.2.7.2.686 [id number] [facility] 2021-06-18 00:00:00 2021-06-18 00:00:00 Garth Rios MD: [id number], [address], [place] [address] , Ph. Gabriel_Jamar [facility] _HOU_[facility] [id number] [place] 2021-06-14 00:00:00 2021-06-14 00:00:00 Telephone Fany Barrow Deanna [facility] 4 1..114 350.1.13.58 9.2.7.2.686 [id number] [facility] 2021-06-14 00:00:00 2021-06-14 00:00:00 Telephone Fany Barrow Deanna [facility] 4 1..114 350.1.13.58 9.2.7.2.686 [id number] [facility] 2021-06-11 09:03:20 2021-06-11 10:29:18 Office Visit Moi Estrada [facility] 4 1.840.114 350.1.13.58 9.2.7.2.686 [id number] [facility] 2021-06-05 15:19:00 2021-06-05 20:30:00 Bedded Outpatient nullFlavo r [facility] [id number] [place] 2021-06-05 10:19:00 2021-06-05 15:30:00 Outpatient KJ LOPEZ [facility] CAR [id number] [facility] 2021-06-04 13:24:03 2021-06-04 14:16:53 Office Visit Mk Porter [facility] 1.84.114 350.1.13.58 9.2.7.2.686 [id number] [facility] 2021-05-23 14:59:00 2021-05-24 04:59:00 Outpatient [facility]avo [facility] [id number] [place] 2021-05-23 09:59:00 2021-05-23 23:59:00 Outpatient KJ LOPEZ [facility] CAR 75[address] [facility] 2021-05-23 11:22:49 2021-05-23 12:23:40 Office Visit Moi Estrada [facility] 4 1.840.114 350.1.13.58 9.2.7.2.686 [id number] [facility] 2021-05-21 00:00:00 2021-05-21 00:00:00 Telephone Mk Porter [facility] 1.84.114 350.1.13.58 9.2.7.2.686 [id number] [facility] 2021-05-11 21:02:00 2021-05-12 04:59:00 Outpatient nullFlavo r [facility] [id number] [facility] 2021-05-11 16:02:00 2021-05-11 23:59:00 Outpatient KJ LOPEZ [facility] CAR 750[address] [facility] 2021-05-09 00:00:00 2021-05-09 00:00:00 EXT [facility] OP Kj Lopez EXT MSRDP LOCATION 1.2.840.114 350.1.13.58 9.2.7.2.686 [id number] [facility] 2021-05-09 00:00:00 2021-05-09 00:00:00 EXT [facility] OP Kj Lopez EXT MSRDP LOCATION 1.2.840.114 350.1.13.58 9.2.7.2.686 [id number] [facility] 2021-04-25 00:00:00 2021-04-25 00:00:00 Orders Only Doctor Unassigned, Mayfair [facility] 1.2.840.114 350.1.13.10 4.2.7.2.686 [id number] [facility] 2021-04-25 00:00:00 2021-04-25 00:00:00 Orders Only Doctor Unassigned, Mayfair [facility] 1.2.840.114 350.1.13.10 4.2.7.2.686 [id number] 2021-04-18 12:29:00 2021-04-18 17:55:00 Bedded Outpatient [facility] [id number] [place] 2021-04-18 07:29:00 2021-04-18 12:55:00 Outpatient KJ LOPEZ [facility] CAR 7502 [facility] 2021-04-10 00:00:00 2021-04-10 00:00:00 Orders Only Doctor Unassigned, Mayfair [facility] 1.2.840.114 350.1.13.10 4.2.7.2.686 [id number] [facility] 2021-04-10 00:00:00 2021-04-10 00:00:00 Orders Only Doctor Unassigned, Mayfair [facility] 1.2.840.114 350.1.13.10 4.2.7.2.686 [id number] 2021-03-22 15:30:00 2021-03-23 04:59:00 Outpatient Christiano jose luis [facility] [place] [id number] [place] 2021-03-22 10:30:00 2021-03-22 23:59:00 Outpatient ZOILA KJ [facility] CAR [address] [facility] 2021-03-13 14:00:00 2021-03-13 14:00:00 Outpatient R JUAREZ GAO [facility] [id number] [facility] 2021-03-11 10:00:00 2021-03-11 10:00:00 Outpatient RAEANN JEFFERS [facility] [id number] [facility] 2021-01-28 00:00:00 2021-01-28 00:00:00 Telephone Murray Juarez [facility] Medical Office Building 1.2.840.114 350.1.13.10 4.2.7.2.686 [id number] [facility] 2021-01-28 00:00:00 2021-01-28 00:00:00 Telephone Murray [facility] Medical Office Building 1.2.840.114 350.1.13.10 4.2.7.2.686 [id number] 2021-01-25 15:00:00 2021-01-25 15:00:00 Outpatient R MURRAY [facility] [id number] [facility] 2021-01-23 00:00:00 2021-01-23 00:00:00 Patient Outreach Huy Judge [facility] 1.2.840.114 350.1.13.10 4.2.7.2.686 [id number] [facility] 2021-01-23 00:00:00 2021-01-23 00:00:00 Patient Outreach Huy Judge [facility] 1.2.840.114 350.1.13.10 4.2.7.2.686 [id number] 2021-01-09 16:00:00 2021-01-09 16:00:00 Outpatient Jose Luis [facility] [id number] [facility] 2021-01-09 14:27:31 2021-01-09 14:57:31 Office Visit Murray [facility] Office Building 1.2840.114 350.1.13.10 4.2.7.2.686 [id number] [facility] 2021-01-09 14:27:31 2021-01-09 14:57:31 Office Visit Murray william [facility] Medical Office Building 1.2840.114 350.1.13.10 4.2.7.2.686 [id number] 2020-12-21 15:00:00 2020-12-21 15:00:00 Outpatient R MURRAY WILLIAM [facility] [id number] [facility] 2020-12-21 13:50:24 2020-12-21 14:05:24 Chemical Operator Visit Draw, [facility] Murray william [facility] Medical Office Building 1.2840.114 350.1.13.10 4.2.7.2.686 [id number] [facility] 2020-12-13 16:20:50 2020-12-13 16:35:50 Chemical Operator Visit Draw, [facility] Blaise Crouch [facility] Office Building 1.2840.114 350.1.13.10 4.2.7.2.686 [id number] [facility] 2020-12-13 15:03:01 2020-12-13 16:19:17 Office Visit Blaise Crouch [facility] Medical Office Building 1.2.840.114 350.1.13.10 4.2.7.2.686 [id number] [facility] 2020-12-13 15:15:00 2020-12-13 15:15:00 Outpatient R BLAISE CROUCH [facility] [id number] [facility] 2020-11-23 00:00:00 2020-11-23 00:00:00 Refill Murray [facility] Medical Office Building 1.2.840.114 350.1.13.10 4.2.7.2.686 [id number] [facility] 2020-10-18 00:00:00 2020-10-18 00:00:00 Patient Outreach Cristina Stephens Jose 1.2.840.114 350.1.13.10 4.2.7.2.686 [id number] [facility] 2020-10-10 16:44:39 2020-10-10 16:59:39 Chemical Operator Visit Draw, [facility] Lab Musajustynazee [facility] Medical Office Building 1.2.840.114 350.1.13.10 4.2.7.2.686 [id number] [facility] 2020-10-10 15:37:28 2020-10-10 16:46:12 Office Visit Murray william [facility] Medical Office Building 1.2.840.114 350.1.13.10 4.2.7.2.686 [id number] [facility] 2020-10-10 16:00:00 2020-10-10 16:00:00 Outpatient R MURRAY [facility] [id number] [facility] 2020-10-10 00:00:00 2020-10-10 00:00:00 Orders Only Doctor Unassigned, Mayfair [facility] 1.2.840.114 350.1.13.10 4.2.7.2.686 [id number] [facility] 2020-10-08 03:15:00 2020-10-08 03:15:00 Outpatient Getjeramie_Jamar VFP [facility] [id number] [facility] e 2020-10-04 00:00:00 2020-10-04 00:00:00 Transition of Care Petrona Padilla 1.2.840.114 350.1.13.10 4.2.7.2.686 [id number] [facility] 2020-10-04 00:00:00 2020-10-04 00:00:00 Transition of Care Maya Jessica 1.2.840.114 350.1.13.10 4.2.7.2.686 [id number] [facility] 2020-09-27 12:25:00 2020-10-03 20:29:00 Hospital Encounter Elisabet Deshpande Jose C [facility] 1.2.840.114 350.1.13.10 4.2.7.2.686 [id number] [facility] 2020-09-27 12:06:00 2020-09-27 12:06:00 Emergency X [facility] ERT [id number] [facility] Results Test Description Test Time Test Comments Results Result Co mments Source [facility] [id number] 00:52:54SEE Wangluotianxia Hemoglobin A1c measurement device [id number] 09:30:58* Test Item Value Reference Range Interpretation Comme nts Hemoglobin A1c/Hemoglobin.to rocky in Blood (test code = 4548-4) 6.5 % 4.0-6.4 [facility] [Mass/volume] in Capillary [id number] 09:26:40* Test Item Value Reference Range Interpretation Comme nts Blood Glucose: mg/dl (test c ode = Blood Glucose: mg/dl) 131 [facility] PracticeHemoglobin A1c measurement device [id number] 10:27:06* Test Item Value Reference Range Interpretation Comme nts Hemoglobin A1c/Hemoglobin.to rocky in Blood (test code = 4548-4) 6.9 % 4.0-6.4 [facility] PracticeGlucose [Mass/volume] in Capillary [id number] 10:21:18* Test Item Value Reference Range Interpretation Comme nts Blood Glucose: mg/dl (test c ode = Blood Glucose: mg/dl) 153 [facility] Center[facility]em[facility] A1c measurement device [id number] 13:53:22* Test Item Value Reference Range Interpretation Comme nts Hemoglobin A1c/Hemoglobin.to rocky in Blood (test code = 4548-4) 7.0 % 5.7-6.4 [facility] PracticeGlucose [Mass/volume] in Capillary [id number] 13:49:10* Test Item Value Reference Range Interpretation Comme nts Blood Glucose: mg/dl (test c ode = Blood Glucose: mg/dl) 149 [facility] CenterHem[facility] A1c measurement device [id number] 10:40:31* Test Item Value Reference Range Interpretation Comme nts Hemoglobin A1c/Hemoglobin.to rocky in Blood (test code = 4548-4) 6.7 % 5.7-6.4 [facility] PracticeGlucose [Mass/volume] in Capillary [id number] 10:37:30* Test Item Value Reference Range Interpretation Comme nts Blood Glucose: mg/dl (test c ode = Blood Glucose: mg/dl) 149 [facility] CenterHem[facility] A1c measurement device [id number] 08:51:25* Test Item Value Reference Range Interpretation Comme nts Hemoglobin A1C Fingerstick: (test code = Hemoglobin A1C Fingerstick:) 6.2 [facility] PracticeGlucose [Mass/volume] in Capillary [id number] 08:51:14* Test Item Value Reference Range Interpretation Comme nts Blood Glucose: mg/dl (test c ode = Blood Glucose: mg/dl) 127 [facility] CenterCHEM [id number] 09:59:00* Test Item Value Reference Range Interpretation Comme nts Glucose Lvl (test code = Glucose Lvl) 101 70- [facility]XspptaoTQZRSKVJHQ1669-80-45 09:59:00* Test Item Value Reference Range Interpretation Comme nts Segs (test code = Segs) 53.1 45.0-75.0 [facility] [id number] 15:37:00* Test Item Value Reference Range Interpretation Comme nts Glucose Lvl (test code = Glucose Lvl) 190 70- [facility]woodFpyfttqMJPOJRHHPM9082-76-93 15:37:00* Test Item Value Reference Range Interpretation Comme nts WBC X 10x3 (test code = WBC X 10x3) 7.4 3.7-10.4 [facility]2021-09-11 07:38:00* Test Item Value Reference Range Interpretation Comme nts Glucose Lvl (test code = Glucose Lvl) 127 - [facility]woodEtegzkjQMETHHWFLM0937-82-43 07:38:00* Test Item Value Reference Range Interpretation Comme nts Segs (test code = Segs) 63.3 45.0-75.0 [facility] [id number] 07:38:00* Test Item Value Reference Range Interpretation Comme nts Ca Ion WB (test code = Ca Ion WB) 1.15 1.05-1.25 [facility]icsLkiwydyZLPANJUAPPQQ0912-16-64 21:20:00* Test Item Value Reference Range Interpretation Comme nts Potassium Lvl (test code = P otassium Lvl) 3.8 3.5-5.1 [facility]2021-09-10 07:51:00* Test Item Value Reference Range Interpretation Comme nts Glucose Lvl (test code = Glucose Lvl) 178 - [facility]woodWufbnmrZSRXZTWQPP2314-23-34 07:51:00* Test Item Value Reference Range Interpretation Comme nts WBC X 10x3 (test code = WBC X 10x3) 8.9 3.7-10.4 [facility] [id number] 07:51:00* Test Item Value Reference Range Interpretation Comme nts Ca Ion WB (test code = Ca Ion WB) 1.21 1.05-1.25 [facility]2021-09-10 02:59:00* Test Item Value Reference Range Interpretation Comme nts Lactic Acid Lvl (test code = Lactic Acid Lvl) 1.2 0.5-2.2 [facility] [id number] 20:42:00* Test Item Value Reference Range Interpretation Comme nts Lactic Acid Lvl (test code = Lactic Acid Lvl) 3.4 0.5-2.2 [facility] [id number] 14:34:00* Test Item Value Reference Range Interpretation Comme nts Lactic Acid Lvl (test code = Lactic Acid Lvl) 6.8 0.5-2.2 [facility]woodAzrewipWZAYXVRUNH9604-09-57 14:34:00* Test Item Value Reference Range Interpretation Comme nts Segs (test code = Segs) 83.9 45.0-75.0 [facility] [id number] 14:34:00* Test Item Value Reference Range Interpretation Comme nts Ca Ion WB (test code = Ca Ion WB) 1.19 1.05-1.25 [facility] KingwoodJsdbeadBLOBUMZZUC7918-73-94 07:44:00* Test Item Value Reference Range Interpretation Comme nts POC Activated Clotting Time (test code = POC Activated Clotting Time) 154 s [facility] [id number] 07:19:00* Test Item Value Reference Range Interpretation Comme nts Total Protein (test code = T otal Protein) 6.1 6.4-8.4 [facility] KingwoodFmkvsggCRJXQWTZVP4567-96-71 07:19:00* Test Item Value Reference Range Interpretation Comme nts PT (test code = PT) 16.4 s 12.0-14.7 [facility] KingwoodDzokghdZIEYMPKBQX0210-72-35 01:01:00* Test Item Value Reference Range Interpretation Comme nts PTT (test code = PTT) 33.1 s 22.9-35.8 [facility] [id number] 20:48:00* Test Item Value Reference Range Interpretation Comme nts Total Protein (test code = T otal Protein) 5.9 6.4-8.4 [facility] KingwoodGkahuyrHQAXKRLCUP5184-15-30 20:44:00* Test Item Value Reference Range Interpretation Comme nts PTT (test code = PTT) 29.3 s 22.9-35.8 [facility] [id number] 19:21:00* Test Item Value Reference Range Interpretation Comme nts FFP product (test code = FFP product) Product available (07/24/21 2:21 PM) [facility] [id number] 14:50:00* Test Item Value Reference Range Interpretation Comme nts MRSA by PCR (test code = MRSA by PCR) Negative (07/23/21 9:50 AM) [facility] [id number] 14:50:00* Test Item Value Reference Range Interpretation Comme nts ABO/Rh (test code = ABO/Rh) A POS [id number] 14:50:00* Test Item Value Reference Range Interpretation Comme nts PTT (test code = PTT) 31.6 s 22.9-35.8 [facility]UzfvxjtVBSLNU1463-93-90 14:50:00* Test Item Value Reference Range Interpretation Comme nts Trig (test code = Trig) 118 [facility] [id number] 14:50:00* Test Item Value Reference Range Interpretation Comme nts Hgb A1C (test code = Hgb A1C) 7.2 [facility] [id number] 14:47:00* Test Item Value Reference Range Interpretation Comme nts RBC product (test code = RBC product) Product available (07/23/21 9:47 AM) [id number] 13:23:00* Test Item Value Reference Range Interpretation Comme nts Coronavirus (COVID-19) JANNA (test code = Coronavirus (COVID-19) JANNA) Not Detected (07/23/21 8:23 AM) [facility]icsLogMeInBreathing capacity [id number] 05:00:00SEE IMAGELINKInterface, [facility] Imaging Results - 07/23/2021 12:02 PM CDTFormatting of this note mightbe different from the original.SEE IMAGELINKUT HealthELECTROLYTES 2021-06-05 15:47:00* Test Item Value Reference Range Interpretation Comme nts POC Sodium (test code = POC Sodium) 141 135-145 [facility]CHE[facility] [id number] 15:37:00* Test Item Value Reference Range Interpretation Comme nts Glucose Lvl (test code = Glucose Lvl) 196 70-99 [id number] 15:37:00* Test Item Value Reference Range Interpretation Comme nts WBC (test code = WBC) 7.7 3.7-10.4 [facility] [id number] 22:03:00* Test Item Value Reference Range Interpretation Comme nts POC Creatinine (test code = POC Creatinine) 1.0 0.5-1.4 [id number] 13:28:00* Test Item Value Reference Range Interpretation Comme nts POC Sodium (test code = POC Sodium) 140 135-145 [facility] [id number] 12:54:00* Test Item Value Reference Range Interpretation Comme nts Glucose Lvl (test code = Glucose Lvl) 158 70-99 [facility]Ouk[facility]tzTDYSXBKDYQ2083-79-51 12:54:00* Test Item Value Reference Range Interpretation Comme nts WBC (test code = WBC) 6.9 3.7-10.4 [facility]7074-27-18 18:43:00* Test Item Value Reference Range Interpretation Comme nts Coronavirus (COVID-19) JANNA (test code = Coronavirus (COVID-19) JANNA) Not Detected (04/16/21 1:43 PM) [facility] GLUCOSE (AUTOMATED)2020-10-03 22:57:00* Test Item Value Reference Range Interpretation Comme nts POCT GLU (test code = 8819395433) 233 mg/dL 70-110 H Notified Provide r Lab Interpretation (test code = 08180-4) Abnormal [facility] GLUCOSE (AUTOMATED)2020-10-03 21:05:00* Test Item Value Reference Range Interpretation Comme nts POCT GLU (test code = 1145855762) 282 mg/dL 70-110 H Lab Interpretation (test cod e = 36619-2) Abnormal [facility] GLUCOSE (AUTOMATED)2020-10-03 20:12:00* Test Item Value Reference Range Interpretation Comme nts POCT GLU (test code = 5351238784) 307 mg/dL 70-110 H Lab Interpretation (test cod e = 70743-9) Abnormal [facility] GLUCOSE (AUTOMATED)2020-10-03 17:27:00* Test Item Value Reference Range Interpretation Comme nts POCT GLU (test code = 1004888686) 302 mg/dL 70-110 H Notified Provide r Lab Interpretation (test code = 50804-3) [facility]2020-[facility] 13:41:00* Test Item Value Reference Range Interpretation Comme [facility] POCT GLU (test code = 3541108029) 140 mg/dL 70-110 H Notified Provide r Lab Interpretation (test code = 13452-8) [facility]normal [facility]MINAL [id number] 12:14:00* Test Item Value Reference Range Interpretation Comme [facility] NT-proBNP (test code = 0731348645) 722 pg/mL See_Comment H [Automated message] The system which generated this result transmitted reference range: <=125. The reference range was not used to interpret this result as normal/abnormal. KARSON (test code = KARSON) Biotin has been reported to cause a negative bias, interpret results relative to patient's use of biotin. Lab Interpretation (test code = 02237-3) Abnormal [facility] METABOLIC PANEL (NA, K, CL, CO2, GLUCOSE, BUN, CREATININE, CA)2020-10-03 12:01:00* Test Item Value Reference Range Interpretation Comme [facility] NA (test code = 5957968063) 135 mmol/L 135-145 K (test code = 9147952272) 3.5 mmol/L 3.5-5 CL (test code = 3136261086) 102 mmol/L 98-108 CO2 TOTAL (test code = 8599154350) 30 mmol/L 23-31 AGAP (test code = 8367596966) 2-16 BUN (test code = 8769411664) 28 mg/dL 7-23 H GLUCOSE (test code = 7007764140) 140 mg/dL 70-110 H CREATININE (test code = 1533586428) 0.96 mg/dL 0.6-1.25 CALCIUM (test code = 8837572350) 8.6 mg/dL 8.6-10.6 eGFR Calculation (Non-) (test code = 5534835952) mL/min/1.73m2 eGFR Calculation () (test code = 2018309600) mL/min/1.73m2 KARSON (test code = KARSON) Association [...] imaging tests). Lab Interpretation (test code = 13901-3) [facility] 12:01:00* Test Item Value Reference Range Interpretation Comme nts MAGNESIUM (test code = 3258471920) 2.2 mg/dL 1.7-2.4 Lab Interpretation (test cod e = 12321-9) Normal [facility] COVID [id number] 11:39:00COVID DMT InterpretationInterpretation/Recommendations: Molecular NAAT Test Results [...] a nasopharyngeal sample, there is approximately a gds-su-waspj chance that the patient was infected and [...] based upon aggregate COVID-19 test results [facility]from [facility]. They apply to the following tests offered at [facility] and assume the acceptable specimen type(s) were used: A. Tests for the Identification of SARS-CoV-2 RNA (Molecular NAAT Tests):SARS-CoV-2 PCR assays including Nichols Aptima, Nichols Fusion, Mullins RealTime, and Prognosis [employer] Information Systems Xpert Xpress. SARS-CoV-2 Rapid ID NOW by the ID NOW assay.? B. Tests for the Identification of SARS-CoV-2 Antibodies: Chemiluminescent immunoassays including Access SARS-CoV-2 IgM (DXI 600), Only Natural Pet StoreS Tcto-GKDJ-PoD-2 IgG (Vitros 5600 and Vitros 3600), and Mullins SARS-CoV-2 IgG (WOOD TILE INSTALLATION HELPER I System). ?These interpretations are autopopulated into [employer] based on computerized algorithms matching an interpretation code to the patient's set of test results, and a clinical pathologist evaluates the comments for accuracy. However, these comments do not consider testing a patient may have had outside of the [facility] system. If results for COVID-19 infection [...] bronchoalveolar lavage fluid (BAL), tracheal aspirate, etc.). ?[facility] LABORATORY SERVICESCOVID ZswphjzILMF-QuC-3 Rapid ID NOW (no units) ? ? Date ? Value ? 09/27/2020 ? Not Detected ? [facility]Un[facility] ([facility]2020-10-03 02:18:00* Test Item Value Reference Range Interpretation Comme nts POCT GLU (test code = 3112858238) 253 mg/dL 70-110 H Lab Interpretation (test cod e = 51332-7) Abnormal [facility] GLUCOSE (AUTOMATED)2020-10-03 00:29:00* Test Item Value Reference Range Interpretation Comme nts POCT GLU (test code = 8499729700) 203 mg/dL 70-110 H Notified Provide r Lab Interpretation (test code = 34300-6) Abnormal [facility] GLUCOSE (AUTOMATED)2020-10-02 20:08:00* Test Item Value Reference Range Interpretation Comme nts POCT GLU (test code = 4775723763) 207 mg/dL 70-110 H Lab Interpretation (test cod e = 31928-6) Abnormal [facility] GLUCOSE (AUTOMATED)2020-10-02 16:11:00* Test Item Value Reference Range Interpretation Comme nts POCT GLU (test code = 5838226502) 230 mg/dL 70-110 H Lab Interpretation (test cod e = 40243-1) Abnormal [facility] GLUCOSE (AUTOMATED)2020-10-02 14:12:00* Test Item Value Reference Range Interpretation Comme nts POCT GLU (test code = 7350623315) 165 mg/dL 70-110 H Notified Provide r Lab Interpretation (test code = 72342-7) Abnormal [facility] METABOLIC PANEL (NA, K, CL, CO2, GLUCOSE, BUN, CREATININE, CA)2020-10-02 13:48:00* Test Item Value Reference Range Interpretation Comme nts NA (test code = 5379962780) 136 mmol/L 135-145 K (test code = 6243597796) 4.0 mmol/L 3.5-5 CL (test code = 9550588618) 98 mmol/L 98-108 CO2 TOTAL (test code = 8990671048) 31 mmol/L 23-31 AGAP (test code = 0391229129) 2-16 BUN (test code = 7835115167) 29 mg/dL 7-23 H GLUCOSE (test code = 9872810665) 148 mg/dL 70-110 H CREATININE (test code = 5845337189) 1.11 mg/dL 0.6-1.25 CALCIUM (test code = 5002420352) 8.9 mg/dL 8.6-10.6 eGFR Calculation (Non-) (test code = 5343427988) mL/min/1.73m2 eGFR Calculation () (test code = 2766135550) mL/min/1.73m2 KARSON (test code = KARSON) Association [...] imaging tests). Lab Interpretation (test code = 98395-2) [facility]normal [facility]2020-[facility]-17 13:48:00* Test Item Value Reference Range Interpretation Comme nts MAGNESIUM (test code = 2070185125) 2.2 mg/dL 1.7-2.4 Lab Interpretation (test cod e = 05527-8) Normal [facility] GLUCOSE (AUTOMATED)2020-10-02 10:37:00* Test Item Value Reference Range Interpretation Comme nts POCT GLU (test code = 2525272289) 150 mg/dL 70-110 H Lab Interpretation (test cod e = 86898-8) Abnormal [facility] GLUCOSE (AUTOMATED)2020-10-02 06:07:00* Test Item Value Reference Range Interpretation Comme nts POCT GLU (test code = 1910493121) 176 mg/dL 70-110 H Lab Interpretation (test cod e = 62675-1) Abnormal [facility] GLUCOSE (AUTOMATED)2020-10-02 02:30:00* Test Item Value Reference Range Interpretation Comme nts POCT GLU (test code = 3412474923) 246 mg/dL 70-110 H Lab Interpretation (test cod e = 59727-0) Abnormal [facility] GLUCOSE (AUTOMATED)2020-10-01 23:06:00* Test Item Value Reference Range Interpretation Comme nts POCT GLU (test code = 1209756170) 243 mg/dL 70-110 H Lab Interpretation (test cod e = 44117-0) Abnormal [facility] CenterNM MYOCARDIAL VIABILITY [id number] 22:15:07Impression: 1) Evidence of complete viability in [...] mL; ESV = 180 mL; EF= 21%. [facility], Radiant Results Inft User - 10/01/2020 4:16 [...] by Dr Rey interpretation by Reji Randall MD.[facility] GLUCOSE (AUTOMATED) 2020-10-01 16:35:00* Test Item Value Reference Range Interpretation Comme nts POCT GLU (test code = 2217279933) 229 mg/dL 70-110 H Lab Interpretation (test cod e = 68613-0) [facility]normal [facility])2020-10-01 13:40:00* Test Item Value Reference Range Interpretation Comme nts POCT GLU (test code = 6908992467) 244 mg/dL 70-110 H Lab Interpretation (test cod e = 99018-0) Abnormal [facility] METABOLIC PANEL (NA, K, CL, CO2, GLUCOSE, BUN, CREATININE, CA)2020-10-01 12:51:00* Test Item Value Reference Range Interpretation Comme nts NA (test code = 3492656900) 134 mmol/L 135-145 L K (test code = 3022289524) 3.9 mmol/L 3.5-5 CL (test code = 6496619976) 97 mmol/L 98-108 L CO2 TOTAL (test code = 7873439782) 32 mmol/L 23-31 H AGAP (test code = 7682129367) 2-16 BUN (test code = 4769506404) 23 mg/dL 7-23 GLUCOSE (test code = 7827563204) 237 mg/dL 70-110 H CREATININE (test code = 5931106837) 1.01 mg/dL 0.6-1.25 CALCIUM (test code = 3160353630) 8.6 mg/dL 8.6-10.6 eGFR Calculation (Non-) (test code = 4788464245) mL/min/1.73m2 eGFR Calculation () (test code = 9128717817) mL/min/1.73m2 KARSON (test code = KARSON) Association [...] imaging tests). Lab Interpretation (test code = 07645-2) [facility]normal [facility]2020-[facility]-16 12:51:00* Test Item Value Reference Range Interpretation Comme nts MAGNESIUM (test code = 1453157624) 1.9 mg/dL 1.7-2.4 Lab Interpretation (test cod e = 04165-2) Normal [facility] GLUCOSE (AUTOMATED)2020-10-01 10:40:00* Test Item Value Reference Range Interpretation Comme nts POCT GLU (test code = 7048651382) 230 mg/dL 70-110 H Lab Interpretation (test cod e = 64205-6) Abnormal [facility] GLUCOSE (AUTOMATED)2020-10-01 06:00:00* Test Item Value Reference Range Interpretation Comme nts POCT GLU (test code = 2324043362) 281 mg/dL 70-110 H Lab Interpretation (test cod e = 67965-8) Abnormal [facility] GLUCOSE (AUTOMATED)2020-10-01 01:18:00* Test Item Value Reference Range Interpretation Comme nts POCT GLU (test code = 2651941755) 201 mg/dL 70-110 H Lab Interpretation (test cod e = 77874-2) Abnormal [facility] GLUCOSE (AUTOMATED)2020-09-30 22:45:00* Test Item Value Reference Range Interpretation Comme nts POCT GLU (test code = 0635680157) 239 mg/dL 70-110 H Lab Interpretation (test cod e = 00843-7) Abnormal [facility] GLUCOSE (AUTOMATED)2020-09-30 18:42:00* Test Item Value Reference Range Interpretation Comme [facility] POCT GLU (test code = 5562133103) 305 mg/dL 70-110 H Notified Provide r Lab Interpretation (test code = 19635-1) Abnormal [facility] GLUCOSE (AUTOMATED)2020-09-30 15:23:00* Test Item Value Reference Range Interpretation Comme [facility] POCT GLU (test code = 8799853723) 259 mg/dL 70-110 H Lab Interpretation (test cod e = 72102-6) Abnormal [facility] METABOLIC PANEL (NA, K, CL, CO2, GLUCOSE, BUN, CREATININE, CA)2020-09-30 11:28:00* Test Item Value Reference Range Interpretation Comme [facility] NA (test code = 1036157103) 133 mmol/L 135-145 L K (test code = 8681131984) 4.1 mmol/L 3.5-5 CL (test code = 9896001916) 98 mmol/L 98-108 CO2 TOTAL (test code = 1178828735) 29 mmol/L 23-31 AGAP (test code = 1940789602) 2-16 BUN (test code = 4389601416) 23 mg/dL 7-23 GLUCOSE (test code = 0386925249) 275 mg/dL 70-110 H CREATININE (test code = 1917759173) 0.91 mg/dL 0.6-1.25 CALCIUM (test code = 1887926144) 8.6 mg/dL 8.6-10.6 eGFR Calculation (Non-) (test code = 7878530919) mL/min/1.73m2 eGFR Calculation () (test code = 9671027122) mL/min/1.73m2 KARSON (test code = KARSON) Association [...] imaging tests). Lab Interpretation (test code = 38547-4) [facility]normal [facility]2020-[facility]-15 11:28:00* Test Item Value Reference Range Interpretation Comme nts MAGNESIUM (test code = 6664690497) 1.9 mg/dL 1.7-2.4 Lab Interpretation (test cod e = 41383-0) Normal [facility]eraP[facility] (for use with Heparin Drip)2020-09-30 11:23:00* Test Item Value Reference Range Interpretation Comme nts APTT Patient (test code = 3173-2) See_Comment [Automated Rubicon Project] The system which generated this result transmitted reference range: 26 - 36 Seconds. The reference range was not used to interpret this result as normal/abnormal. Lab Interpretation (test code = 59073-9) Normal [facility] GLUCOSE (AUTOMATED)2020-09-30 10:54:00* Test Item Value Reference Range Interpretation Comme nts POCT GLU (test code = 9614037017) 267 mg/dL 70-110 H Lab Interpretation (test cod e = 23625-5) Abnormal [facility] GLUCOSE (AUTOMATED)2020-09-30 05:38:00* Test Item Value Reference Range Interpretation Comme [facility] POCT GLU (test code = 1447410576) 217 mg/dL 70-110 H Lab Interpretation (test cod e = 37476-7) Abnormal [facility] GLUCOSE (AUTOMATED)2020-09-30 03:07:00* Test Item Value Reference Range Interpretation Comme nts POCT GLU (test code = 2137560750) 234 mg/dL 70-110 H Lab Interpretation (test cod e = 09914-8) Abnormal [facility] GLUCOSE (AUTOMATED)2020-09-30 00:33:00* Test Item Value Reference Range Interpretation Comme nts POCT GLU (test code = 6977534369) 292 mg/dL 70-110 H Notified Provide r Lab Interpretation (test code = 01256-8) Abnormal [facility] GLUCOSE (AUTOMATED)2020-09-29 21:54:00* Test Item Value Reference Range Interpretation Comme nts POCT GLU (test code = 7510227080) 414 mg/dL 70-110 H Lab Interpretation (test cod e = 68256-9) Abnormal [facility] GLUCOSE (AUTOMATED)2020-09-29 18:31:00* Test Item Value Reference Range Interpretation Comme nts POCT GLU (test code = 8001615219) 341 mg/dL 70-110 H Notified Provide r Lab Interpretation (test code = 04130-2) Abnormal [facility] GLUCOSE (AUTOMATED)2020-09-29 14:49:00* Test Item Value Reference Range Interpretation Comme nts POCT GLU (test code = 9569660181) 146 mg/dL 70-110 H Lab Interpretation (test cod e = 32921-4) Abnormal [facility] GLUCOSE (AUTOMATED)2020-09-29 11:44:00* Test Item Value Reference Range Interpretation Comme nts POCT GLU (test code = 4160869658) 139 mg/dL 70-110 H Lab Interpretation (test cod e = 99399-4) Abnormal [facility] CenterGLYCOSYLATED HEMOGLOBIN (A1C)2020-09-29 09:15:00* Test Item Value Reference Range Interpretation Comme nts HGB A1C (test code = 4548-4) 8.8 % 4-6 H Lab Interpretation (test cod e = 33251-3) Abnormal [facility] CenterTroponin [id number] 08:42:00* Test Item Value Reference Range Interpretation Comme nts TROPONIN I (test code = 2309363980) 0.101 ng/mL See_Comment H [Automated message] The [...] biotin. ? Lab Interpretation (test code = 41454-5) Abnormal [facility] METABOLIC PANEL (NA, K, CL, CO2, GLUCOSE, BUN, CREATININE, CA)2020-09-29 08:25:00* Test Item Value Reference Range Interpretation Comme nts NA (test code = 6329923687) 135 mmol/L 135-145 K (test code = 2941332391) 3.9 mmol/L 3.5-5 CL (test code = 5361615480) 100 mmol/L 98-108 CO2 TOTAL (test code = 6097186080) 32 mmol/L 23-31 H AGAP (test code = 8530559305) 2-16 BUN (test code = 5411854554) 17 mg/dL 7-23 GLUCOSE (test code = 9434633968) 213 mg/dL 70-110 H CREATININE (test code = 8637358647) 0.76 mg/dL 0.6-1.25 CALCIUM (test code = 5848465355) 8.8 mg/dL 8.6-10.6 eGFR Calculation (Non-) (test code = 6004813731) mL/min/1.73m2 eGFR Calculation () (test code = 3716946088) mL/min/1.73m2 KARSON (test code = KARSON) Association [...] imaging tests). Lab Interpretation (test code = 76185-6) [facility]normal [facility]2020-11-14 08:25:00* Test Item Value Reference Range Interpretation Comme [facility] MAGNESIUM (test code = 2714082471) 2.0 mg/dL 1.7-2.4 Lab Interpretation (test cod e = 92684-0) Normal [facility] (for use with Heparin Drip)2020-09-29 08:02:00* Test Item Value Reference Range Interpretation Comme nts APTT Patient (test code = 3173-2) See_Comment H [Automated Rubicon Project] The system which generated this result transmitted reference range: 26 - 36 Seconds. The reference range was not used to interpret this result as normal/abnormal. Lab Interpretation (test code = 16985-6) Abnormal [facility] GLUCOSE (AUTOMATED)2020-09-29 07:46:00* Test Item Value Reference Range Interpretation Comme nts POCT GLU (test code = 8918207893) 213 mg/dL 70-110 H Lab Interpretation (test cod e = 64905-5) Abnormal [facility] GLUCOSE (AUTOMATED)2020-09-29 04:38:00* Test Item Value Reference Range Interpretation Comme nts POCT GLU (test code = 9762616941) 335 mg/dL 70-110 H Lab Interpretation (test cod e = 54324-1) Abnormal [facility] GLUCOSE (AUTOMATED)2020-09-29 01:41:00* Test Item Value Reference Range Interpretation Comme nts POCT GLU (test code = 9077511418) 326 mg/dL 70-110 H Lab Interpretation (test cod e = 29602-8) [facility]normal [facility] (for use with Heparin Drip)2020-09-28 23:01:00* Test Item Value Reference Range Interpretation Comme nts APTT Patient (test code = 3173-2) See_Comment [Automated Rubicon Project] The system which generated this result transmitted reference range: 26 - 36 Seconds. The reference range was not used to interpret this result as normal/abnormal. Lab Interpretation (test code = 31098-9) Normal [facility] GLUCOSE (AUTOMATED)2020-09-28 13:53:00* Test Item Value Reference Range Interpretation Comme nts POCT GLU (test code = 4783626096) 192 mg/dL 70-110 H Lab Interpretation (test cod e = 08391-9) Abnormal [facility] CenterTroponin [id number] 11:02:00* Test Item Value Reference Range Interpretation Comme nts TROPONIN I (test code = 4937601025) 0.184 ng/mL See_Comment H [Automated message] The [...] biotin. ? Lab Interpretation (test code = 28406-1) Abnormal [facility] CenterLIPID PANEL (70198)(TOTAL CHOLESTEROL, TRIGLYCERIDES, HDL)2020-09-28 10:35:00* Test Item Value Reference Range Interpretation Comme nts CHOL (test code = 0568632298) 150 mg/dL 120-200 HDL (test code = 2432343190) 40 mg/dL >40 L HDLC RATIO (test code = 9825276649) See_Comment [Automated Rubicon Project] The system which generated this result transmitted reference range: <=5.0. The reference range was not used to interpret this result as normal/abnormal. TRIG (test code = 8440023107) 134 mg/dL 30-170 LDL CHOL (test code = 02449-5) 83 mg/dL See_Comment [Automated Rubicon Project] The system which generated this result transmitted reference range: <=160. The reference range was not used to interpret this result as normal/abnormal. VLDL (test code = 1488774158) 27 mg/dL 5-60 Lab Interpretation (test code = 18678-3) Abnormal [facility] (for use with Heparin Drip)2020-09-28 09:57:00* Test Item Value Reference Range Interpretation Comme nts APTT Patient (test code = 3173-2) See_Comment H [Automated Rubicon Project] The system which generated this result transmitted reference range: 26 - 36 Seconds. The reference range was not used to interpret this result as normal/abnormal. Lab Interpretation (test code = 15792-6) [facility]normal [facility] Center[facility] ([facility]ATED)2020-09-28 06:35:00* Test Item Value Reference Range Interpretation Comme [facility] POCT GLU (test code = 4563184199) 271 mg/dL 70-110 H Lab Interpretation (test cod e = 67205-4) Abnormal [facility] CenterTroponin [id number] 05:06:00* Test Item Value Reference Range Interpretation Comme [facility] TROPONIN I (test code = 8234253951) 0.189 ng/mL See_Comment H [Automated message] The [...] biotin. ? Lab Interpretation (test code = 15046-4) Abnormal [facility]eraPTT (for use with Heparin Drip)2020-09-28 03:55:00* Test Item Value Reference Range Interpretation Comme nts APTT Patient (test code = 3173-2) See_Comment H [Automated messa ge] The system which generated this result transmitted reference range: 26 - 36 Seconds. The reference range was not used to interpret this result as normal/abnormal. Lab Interpretation (test code = 02538-1) Abnormal [facility] CenterCT CHEST PULMONARY [id number] 21:42:18HISTORY: Positive d-dimer, rule out P.E. TECHNIQUE: [...] chronic history of poorlycontrolled diabetes. Please correlate. [facility], Radiant Results InftUser - 09/27/2020 3:43 PM [...] chronic history of poorlycontrolled diabetes. Please correlate. [facility] CenterLACTATE [id number] 21:42:00* Test Item Value Reference Range Interpretation Comme nts LDH (test code = 0306510925) 678 U/L 300-600 H Lab Interpretation (test cod e = 34895-1) Abnormal [facility] CenterCOVID-19 (ID NOW RAPID TESTING)2020-09-27 19:56:00* Test Item Value Reference Range Interpretation Comme nts SARS-CoV-2 Rapid ID NOW (test code = 50605-3) Not Detected Not Detected KARSON (test code = KARSON) ID NOW COVID-19 As say is an isothermal nucleic acid amplification test intended for the qualitative detection of nucleic acid from SARS-CoV-2 viral RNA in nasopharyngeal (ALTO SINGER) specimens. It is used under Emergency Use [...] clinically indicated. Lab Interpretation (test code = 99063-4) Normal [facility] CenteraPTT2020-11-12 19:50:00* Test Item Value Reference Range Interpretation Comme [facility] APTT Patient (test code = 3173-2) See_Comment [Automated message] The system which generated this result transmitted reference range: 23 - 38 Seconds. The reference range was not used to interpret this result as normal/abnormal. KARSON (test code = KARSON) The [facility] patient population mean normal value for aPTT is 30 seconds. Lab Interpretation (test code = 88138-3) Normal [facility] CenterProthrombin Time (PT) / [id number] 19:50:00 * Test Item Value Reference Range Interpretation Comme [facility] PROTIME PATIENT (test code = 5964-2) See_Comment [Automated Apptimatea ge] The system which generated this result transmitted reference range: 12.0 - 14.7 Seconds. The reference range was not used to interpret this result as normal/abnormal. INR (test code = 6301-6) Normal INR <1.1; Warfarin Therapeutic range 2.0 to 3.0 or 2.5 to 3.5, depending upon the indications. Lab Interpretation (test code = 38079-6) Normal [facility] CenterTroponin [id number] 19:48:00* Test Item Value Reference Range Interpretation Comme [facility] TROPONIN I (test code = 2810254350) 0.207 ng/mL See_Comment H [Automated message] The [...] biotin. ? Lab Interpretation (test code = 79951-2) Abnormal [facility] CenterN-TERMINAL MAL-[id number] 19:46:00* Test Item Value Reference Range Interpretation Comme nts NT-proBNP (test code = 1673356747) 1370 pg/mL See_Comment H [Automated message] The system which generated this result transmitted reference range: <=125. The reference range was not used to interpret this result as normal/abnormal. KARSON (test code = KARSON) Biotin has been reported to cause a negative bias, interpret results relative to patient's use of biotin. Lab Interpretation (test code = 98923-0) Abnormal [facility] CenterD-HGWIB1012-43-90 19:37:00* Test Item Value Reference Range Interpretation Comments D-DIMER (test code = 9401031770) See_Comment H [Automated message] The system which [...] a diagnosis. Lab Interpretation (test code = 07807-5) [facility] (NA, K, CL, CO2, GLUCOSE, BUN, CREATININE, CA)2020-09-27 19:36:00* Test Item Value Reference Range Interpretation Comme nts NA (test code = 1622344704) 134 mmol/L 135-145 L K (test code = 0810089589) 4.9 mmol/L 3.5-5 CL (test code = 3006764941) 99 mmol/L 98-108 CO2 TOTAL (test code = 7576129023) 30 mmol/L 23-31 AGAP (test code = 0828775421) 2-16 BUN (test code = 6181730320) 22 mg/dL 7-23 GLUCOSE (test code = 1403896530) 216 mg/dL 70-110 H CREATININE (test code = 6356288397) 0.78 mg/dL 0.6-1.25 CALCIUM (test code = 3004221330) 9.3 mg/dL 8.6-10.6 eGFR Calculation (Non-) (test code = 5935172914) mL/min/1.73m2 eGFR Calculation () (test code = 3603716623) mL/min/1.73m2 KARSON (test code = KARSON) Association [...] imaging tests). Lab Interpretation (test code = 28715-8) [facility]normal [facility] (ALB, T.PRO, BILI T, BU/BC, ALT, AST, ALK PHOS)2020-09-27 19:36:00* Test Item Value Reference Range Interpretation Comme nts TOTAL BILI (test code = 8446167936) 1.4 mg/dL 0.1-1.1 H BILI UNCON (test code = 1329085838) 0.8 mg/dL 0.1-1.1 BILI CONJ (test code = 3271164076) 0.0 mg/dL 0-0.3 T PROTEIN (test code = 1908257732) 7.2 g/dL 6.3-8.2 ALBUMIN (test code = 9594199999) 4.2 g/dL 3.5-5 ALK PHOS (test code = 9304340057) 53 U/L 34-122 ALTv (test code = 1742-6) 106 U/L 5-50 H AST(SGOT) (test code = 2024158623) 61 U/L 13-40 H Lab Interpretation (test cod e = 70213-5) Abnormal [facility] [id number] 19:35:00* Test Item Value Reference Range Interpretation Comme nts LIPASE (test code = 0032305511) 41 U/L 0-220 Lab Interpretation (test cod e = 91216-9) Normal [facility] with [id number] 19:19:00* Test Item Value Reference Range Interpretation Comme nts WBC (test code = 6690-2) See_Comment [Automated [employer] BagThat] The system which generated this result transmitted reference range: 4.20 - 10.70 10*3/?L. The reference range was not used to interpret this result as normal/abnormal. RBC (test code = 789-8) See_Comment [Automated [employer] BagThat] The system which generated this result transmitted [...] 33.6 g/dL 31.2-35 RDW-SD (test code = 72223-7) 44.4 fL 38.5-51.6 RDW-CV (test code = 788-0) 13.2 % 12.1-15.4 PLT (test code = 777-3) See_Comment [Automated messa ge] The system which generated this result transmitted reference range: 150 - 328 10*3/?L. The reference range was not used to interpret this result as normal/abnormal. MPV (test code = 00625-2) 11.4 fL 9.8-13 NRBC/100 WBC (test code = 2312198244) See_Comment [Automated me ssage] The system which generated this result transmitted reference range: 0.0 - 10.0 /100 WBCs. The reference range was not used to interpret this result as normal/abnormal. NRBC x10^3 (test code = 4450110288) <0.01 See_Comment [Automated me ssage] The system which generated this result transmitted reference range: 10*3/?L. The reference range was not used to interpret this result as normal/abnormal. GRAN MAT (NEUT) % (test code = 770-8) 60.5 % IMM GRAN % (test code = 3838015405) 0.60 % LYMPH % (test code = 736-9) 27.0 % MONO % (test code = 5905-5) 8.4 % EOS % (test code = 713-8) 2.9 % BASO % (test code = 706-2) 0.6 % GRAN MAT x10^3(ANC) (test code = 5979165927) 4.80 10*3/uL 1.99-6.95 IMM GRAN x10^3 (test code = 5073927602) 0.05 10*3/uL 0-0.06 LYMPH x10^3 (test code = 731-0) 2.14 10*3/uL 1.09-3.23 MONO x10^3 (test code = 742-7) 0.67 10*3/uL 0.36-1.02 EOS x10^3 (test code = 711-2) 0.23 10*3/uL 0.06-0.53 BASO x10^3 (test code = 704-7) 0.05 10*3/uL 0.01-0.09 [facility]Chest 1 [id number] 19:01:56CHEST PORTABLE ONE VIEW HISTORY:CP, SOB TECHNIQUE: [...] is seen.CONCLUSIONS:1. Mild pulmonary edema and borderline [facility]omegalyUn[facility]
--- NOTE | 2024-11-25 16:44 | ER ---
Nurse's Notes [facility] Name: Artem Pena Age: 64 yrs Sex: Male : 1960 Arrival Date: 11/25/2024 Time: 15:39 Bed 18 Private MD: Diagnosis: Foot cellulitis;Essential (primary) hypertension Presentation: 11/25 15:53 Chief complaint: Patient states: left foot pain and swelling started last night. Feels tm6 like the bone is aching. Has neuropathy. Coronavirus screen: Client denies travel out of the [place] in the last 14 days. Ebola Screen: Patient negative for fever greater than or equal to 101.5 degrees Fahrenheit, and additional compatible Ebola Virus Disease symptoms Patient denies exposure to infectious person. Patient denies travel to an Ebola-affected area in the 21 days before illness onset. No symptoms or risks identified at this time. Initial Sepsis Screen: Does the patient meet any 2 criteria? No. Patient's initial sepsis screen is negative. Does the patient have a suspected source of infection? No. Patient's initial sepsis screen is negative. Risk Assessment: Do you want to hurt yourself or someone else? Patient reports no desire to harm self or others. Onset of symptoms was November 24, 2024. 15:53 Method Of Arrival: Ambulatory tm6 15:53 Acuity: TANGELA 3 tm6 Triage Assessment: 15:53 General: Appears in no apparent distress. Behavior is calm, cooperative. Pain: tm6 Complains of pain in left foot Pain currently is 8 out of 10 on a pain scale. Pain began 1 day ago. EENT: No signs and/or symptoms were reported regarding the EENT system. Neuro: Level of Consciousness is awake, alert, obeys commands, Oriented to person, place, time, situation. Cardiovascular: Patient's skin is warm and dry. Respiratory: Airway is patent Respiratory effort is even, unlabored, Respiratory pattern is regular, symmetrical. GI: No signs and/or symptoms were reported involving the gastrointestinal system. Abdomen is round non-distended. : No signs and/or symptoms were reported regarding the genitourinary system. Derm: No signs and/or symptoms reported regarding the dermatologic system. Musculoskeletal: Reports pain in left foot swelling in left foot. Historical: - Allergies: 15:52 Latex; tm6 15:52 Lisinopril; tm6 15:52 metformin; tm6 15:52 Hfbxppm-Xes-Cfj Reductase Inhibitors; tm6 15:52 Cipro; tm6 - PMHx: 15:52 Congestive heart failure; diabetes mellitus; Hypertension; Myocardial infarction; tm6 - PSHx: 15:52 Coronary artery bypass graft; tm6 - Immunization history:: Flu vaccine is not up to date. - Infectious Disease History:: Denies. - Social history:: Smoking status: Patient denies any tobacco usage or history of. Screenin:32 [facility] ED Fall Risk Assessment (Adult) History of falling in the last 3 months, db including since admission No falls in past 3 months (0 pts) Confusion or Disorientation No (0 pts) Intoxicated or Sedated No (0 pts) Impaired Gait No (0 pts) Mobility Assist Device Used No (0 pt) Altered Elimination No (0 pt) Score/Fall Risk Level 0 - 2 = Low Risk Oriented to surroundings, Maintained a safe environment. Abuse screen: Denies threats or abuse. Denies injuries from another. Nutritional screening: No deficits noted. Tuberculosis screening: No symptoms or risk factors identified. Assessment: 17:20 Reassessment: Patient appears in no apparent distress at this time. Patient and/or db family updated on plan of care and expected duration. Pain level reassessed. Patient is alert, oriented x 3, equal unlabored respirations, skin warm/dry/pink. WOUNDVAC TO LEFT OUTTER FOOT INTACT. General: Appears in no apparent distress. comfortable, Behavior is calm, cooperative. Neuro: Level of Consciousness is awake, alert, obeys commands, Oriented to person, place, time, situation. Respiratory: Airway is patent Respiratory effort is even, unlabored, Respiratory pattern is regular, symmetrical. Derm: Wound noted left foot. 17:35 Reassessment: PATIENT LEFT FOOT WOUND WRAPPED DRESSED WET TO DRY PER ORDER. db 19:09 Reassessment: Patient appears in no apparent distress at this time. Patient and/or db family updated on plan of care and expected duration. Pain level reassessed. Patient is alert, oriented x 3, equal unlabored respirations, skin warm/dry/pink. 19:15 Reassessment: Patient and/or family updated on plan of care and expected duration. Pain br2 level reassessed. Patient is alert, oriented x 3, equal unlabored respirations, skin warm/dry/pink. PENDING TRANSFER TO THE FLOOR Patient states feeling better. Vital Signs: 15:51 BP 147 / 78; Pulse 82; Resp 17; Temp 98.3(TE); Pulse Ox 100% on R/A; MAP 97 mmHg; tm6 Weight 129.73 kg; Height 6 ft. 4 in. ; Pain 8/10; 18:50 BP 151 / 70; Pulse 80; Resp 16; Pulse Ox 97% ; db 20:10 BP 150 / 62; Pulse 82; Resp 18; Temp 97.2; Pulse Ox 98% ; br2 15:51 Body Mass Index 34.81 (129.73 kg, 193.04 cm) tm6 15:51 Pain Scale: Adult tm6 ED Course: 15:44 Patient arrived in ED. mr 15:49 Krzysztof Stiles DO is Attending Physician. ms3 15:53 Arm band placed on right wrist. tm6 15:54 Triage completed. tm6 16:42 Shayne William MD is Hospitalizing Provider. ms3 16:55 Marga Kothari, RA is Primary Nurse. db 17:20 Initial lab(s) drawn, by me, sent to lab. Inserted saline lock: 20 gauge in right db forearm, using aseptic technique. Blood collected. Flushed with 10 mL NS. 18:03 Patient moved to MRI. db 19:09 Patient has correct armband on for positive identification. Bed in low position. Call db light in reach. Side rails up X 1. Pulse ox on. NIBP on. Pillow given. 20:09 Yaritza Hillman, RN is Primary Nurse. br2 20:14 No provider procedures requiring assistance completed. Accessed Patient admitted, IV br2 remains in place. Administered Medications: 17:15 Drug: Meropenem IV 1 grams IV at calculated rate once; (mix in NS 100 mL) Route: IV; db Rate: calculated rate; Site: right antecubital; 19:00 Follow up: Response: No adverse reaction; IV Status: Completed infusion; IV Intake: br2 100ml Intake: 19:00 IV: 100ml; Total: 100ml. br2 Outcome: 16:43 Decision to Hospitalize by Provider. ms3 20:13 Patient left the ED. br2 20:14 Admitted to Med/surg accompanied by tech, via stretcher, room 202, br2 20:14 Condition: good br2 20:14 Discharge instructions given to patient, Instructed on the need for admit, Demonstrated understanding of instructions, follow-up care, Signatures: Cristina Renteria, Reg Reg mr Krzysztof Stiles, DO DO ms3 Marga Kothari, RN RN db Petr Low RN RN tm6 Yaritza Hillman RN RN br2 Corrections: (The following items were deleted from the chart) 17:20 17:19 Meropenem IV 1 grams IV at calculated rate in right antecubital db db 21:04 19:15 Reassessment: Patient and/or family updated on plan of care and expected br2 duration. Pain level reassessed. Patient is alert, oriented x 3, equal unlabored respirations, skin warm/dry/pink. Patient states feeling better. br2
--- NOTE | 2024-11-25 16:44 | EDPHYS ---
Physician Documentation [facility] Name: Artem Pena Age: 64 yrs Sex: Male : 1960 Arrival Date: 11/25/2024 Time: 15:39 Bed 18 Private MD: ED Physician Krzysztof Stiles HPI: 11/25 20:03 This 64 yrs old Male presents to ER via Ambulatory with complaints of Foot Pain, Toes ms3 swelling. 20:03 Artem Pena is a 64-year-old male presenting to the emergency department with left ms3 foot and toe pain since last night. 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 Barron in the first week of October. He describes the pain as 8-9 out of 10. He reports new swelling in his remaining toes, similar to what was observed before his previous amputation. He is concerned about the possibility of another infection.. Historical: - Allergies: 15:52 Latex; tm6 15:52 Lisinopril; tm6 15:52 metformin; tm6 15:52 Waivpae-Kkq-Vjg Reductase Inhibitors; tm6 15:52 Cipro; tm6 - PMHx: 15:52 Congestive heart failure; diabetes mellitus; Hypertension; Myocardial infarction; tm6 - PSHx: 15:52 Coronary artery bypass graft; tm6 - Immunization history:: Flu vaccine is not up to date. - Infectious Disease History:: Denies. - Social history:: Smoking status: Patient denies any tobacco usage or history of. ROS: 20:03 Constitutional: Negative for fever, and chills. Cardiovascular: Negative for chest ms3 pain, and palpitations. Respiratory: Negative for shortness of breath, cough, wheezing, and pleuritic chest pain, Abdomen/GI: Negative for abdominal pain, nausea, vomiting, diarrhea, and constipation, 20:03 MS/extremity: Positive for Swelling of Left foot and toes, Exam: 20:14 Constitutional: This is a well developed, well nourished patient who is awake, alert, ms3 and in no acute distress. Cardiovascular: Regular rate and rhythm with a normal S1 and S2. No gallops, murmurs, or rubs. Normal PMI, no JVD. No pulse deficits. Respiratory: Lungs have equal breath sounds bilaterally, clear to auscultation and percussion. No rales, rhonchi or wheezes noted. No increased work of breathing, no retractions or nasal flaring. Abdomen/GI: Soft, non-tender, with normal bowel sounds. No distension or tympany. No guarding or rebound. No evidence of tenderness throughout. 20:14 Skin: Mild erythema dorsum of left foot with mild swelling of 2-4 toes. Vital Signs: 15:51 BP 147 / 78; Pulse 82; Resp 17; Temp 98.3(TE); Pulse Ox 100% on R/A; MAP 97 mmHg; tm6 Weight 129.73 kg; Height 6 ft. 4 in. ; Pain 8/10; 18:50 BP 151 / 70; Pulse 80; Resp 16; Pulse Ox 97% ; db 20:10 BP 150 / 62; Pulse 82; Resp 18; Temp 97.2; Pulse Ox 98% ; br2 15:51 Body Mass Index 34.81 (129.73 kg, 193.04 cm) tm6 15:51 Pain Scale: Adult tm6 MDM: 16:02 Medical Screening Exam initiated ms3 20:14 Differential diagnosis: cellulitis. Data reviewed: vital signs, nurses notes, lab test ms3 result(s), and as a result, I will admit patient. Consideration of Admission/Observation Patient was admitted/placed on observation. Management of patient was discussed with the following: Hospitalist: Dr William. Area Field Manager: Dr Barron- Recommends Meroenem, take wound vac off and apply wet to dry, MRI of Left foot. I considered the following discharge prescriptions or medication management in the emergency department Medications were administered in the Emergency Department. See MAR. Counseling: I had a detailed discussion with the patient and/or guardian regarding the historical points, exam findings, and any diagnostic results supporting the discharge/admit diagnosis, lab results, radiology results, the need for further work-up and treatment in the hospital. ED course: Discussed plan for admission with patient. He understands/ agrees with plan. All questions answered. . 11/25 16:36 Order name: CBC with Diff; Complete Time: 17:41 ms3 11/25 16:36 Order name: BMP; Complete Time: 17:41 ms3 11/25 17:46 Order name: Basic Metabolic Panel EDMS 11/25 17:46 Order name: Basic Metabolic Panel EDMS 11/25 17:46 Order name: CBC with Automated Diff EDMS 11/25 17:46 Order name: CBC with Automated Diff EDMS 11/25 16:53 Order name: Foot Right Wo Cont EDMS 11/25 16:59 Order name: Dr Anderson Consult EDMS 11/25 17:46 Order name: CONS Physician Consult EDMS 11/25 16:38 Order name: Misc. Order: Remove Wound vac and place wet to dry; Complete Time: 17:31 ms3 Administered Medications: 17:15 Drug: Meropenem IV 1 grams IV at calculated rate once; (mix in NS 100 mL) Route: IV; db Rate: calculated rate; Site: right antecubital; 19:00 Follow up: Response: No adverse reaction; IV Status: Completed infusion; IV Intake: br2 100ml Disposition Summary: 11/25/24 16:43 Hospitalization Ordered Notes: Hospitalization Status: Inpatient Admission ms3 Provider: Shayne William ms3 [facility] Condition: Stable ms3 Problem: new ms3 Symptoms: are unchanged ms3 Bed/Room Type: Standard ms3 Room Assignment: 202(11/25/24 18:13) bd Diagnosis - Foot cellulitis ms3 - Essential (primary) hypertension ms3 Forms: - Medication Reconciliation Form ms3 - SBAR form ms3 - Leadership Thank You Letter ms3 Signatures: Dispatcher [employer] EDMS Flori Navarro bd Stiles, Krzysztof, DO DO ms3 Marga Kothari RN RN db Petr Low RN RN tm6 Yaritza Hillman RN br2 Corrections: (The following items were deleted from the chart) 18:13 16:43 ms3 bd
[2024-11-25] MEDS ORDERED: Meropenem 1000 MG/VIAL IV ONE (17:12)
[2024-11-25] MEDS ORDERED: NA CHLORIDE 0.9% 100 ML ONE (17:12)
[2024-11-25 17:18] LABS: Absolute Eosinophils 0.1 K/uL (0-0.5); Absolute Neutrophil 7.7 K/uL (1.8-8.0); Basophils % 0.3 % (0-1.3); Eosinophils % 0.7 % (0-4.4); Hematocrit 40.6 % (39.6-49.0); Hemoglobin 13.8 g/dL (13.6-17.9); Lymphocytes % 18.4 % (15.3-44.8); MCH 30.6 pg (27.0-35.0); MCV 89.9 fL (80-100); MPV 8.6 fL (7.6-11.3); Monocytes % 9.5 % (3.3-12.3); Neutrophils % 71.1 % (41.7-73.7); Platelets 354 thou/uL (152-406); RBC Red Blood Cell Count 4.51 M/uL (4.33-5.43); Red Cell Distribution Width 13.4 % (12.1-15.2)
[2024-11-25 17:29] LABS: Anion Gap 9.8 mEq/L (5.0-15.0); Potassium 3.8 mEq/L (3.5-5.1)
[2024-11-25] MEDS ORDERED: ONDANSETRON 4 MG/2 ML VIAL IV PRN (17:42)
--- NOTE | 2024-11-25 17:44 | P.HP ---
Certification for Inpatient Patient admitted to: Inpatient With expected LOS: >2 Midnights Patient will require the following post-hospital care: None Practitioner: I am a practitioner with admitting privileges, knowledge of patient current condition, hospital course, and medical plan of care. Services: Services provided to patient in accordance with Admission requirements found in Title 42 Section 412.3 of the Code of Federal Regulations Patient History Date of Service: 11/25/24 Reason for admission: Pain on the lateral left foot History of Present Illness: Patient is a 64-year-old gentleman came to the hospital for swelling of the left foot. According to the patient the swelling has been worse than normal. 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 Patient has been getting care and antibiotic therapy. He is on oral antibiotic therapy at this time. He is has a wound VAC in place as well. Was told by the vascular surgeon that the swelling was looking a little worse so he was told to come into the emergency room for further evaluation. In the ER patient was seen by physician and general surgery was consulted. Plan was to admit the patient to the hospital with MRI evaluation. At this time patient will be admitted for inpatient hospitalization. MRI is pending. Labs are pending. Allergies latex Allergy (Verified 10/21/24 10:04) Hives/Rash lisinopril Allergy (Verified 10/21/24 10:04) Shortness of breath metformin Allergy (Verified 10/21/24 10:04) Nausea/Vomiting Home Medications: Losartan/Hydrochlorothiazide [Losartan-Hctz 100-25 mg Tab] 1 tab PO DAILY 01/23/17 Metoprolol Succinate [Toprol Xl*] 50 mg PO DAILY 01/23/17 Amiodarone HCl [Pacerone] 200 mg PO DAILY 10/20/24 Furosemide 40 mg PO DAILY 10/20/24 Insulin Regular, Human [Novolin R Flexpen] 100 units SQ PRN 10/20/24 Tirzepatide [Mounjaro] 15 mg SQ EVERY 7TH DAY 10/20/24 - Past Medical/Surgical History Diabetic: Yes -: HTN -: DM -: CAD s/p MT and single vessel bypass graft -: Cataracts -: ESRD -: CHF -: R Foot Michael's Fx -: Appe -: R Shoulder Tear Repair -: CABG -: Bilateral cataracts Psychosocial/ Personal History: Lives at home with his . - Family History Father Family History: Reviewed- Non-Contributory - Social History Smoking Status: Never smoker Alcohol use: No CD- Drugs: No Caffeine use: No Review of Systems 10-point ROS is otherwise unremarkable Physical Examination - Vital Signs Temperature: 98 F Blood Pressure: 140/80 Pulse: 80 Respirations: 18 Pulse Ox (%): 95 - Physical Exam General: Alert, In no apparent distress, Oriented x3 HEENT: Atraumatic, PERRLA, Mucous membr. moist/pink, EOMI, Sclerae nonicteric Neck: Supple, 2+ carotid pulse no bruit, No LAD, Without JVD or thyroid abnormality Respiratory: Clear to auscultation bilaterally, Normal air movement Cardiovascular: Regular rate/rhythm, Normal S1 S2, No murmurs Gastrointestinal: Normal bowel sounds, Soft and benign, Non-distended, No tenderness Musculoskeletal: No clubbing, No swelling, No tenderness Integumentary: Tenderness/swelling, Erythema Neurological: Normal speech, Normal strength at 5/5 x4 extr, Normal tone, Sensation intact, Cranial nerves 3-12 intact, Normal affect, Abnormal gait Lymphatics: No axilla or inguinal lymphadenopathy - Studies Laboratory Data (last 24 hrs) 11/25/24 11/25/24 17:05 17:05 WBC 10.80 Hgb 13.8 Hct 40.6 Plt Count 354 Sodium 139 Potassium 3.8 BUN 18 Creatinine 0.89 Glucose 138 H Assessment & Plan - Problems (Diagnosis) (1) Osteomyelitis of foot, left, acute Current Visit: Yes Status: Acute (2) Type 2 diabetes mellitus Current Visit: Yes Status: Acute (3) Hypertension Current Visit: Yes Status: Acute (4) Morbid obesity Current Visit: Yes Status: Acute (5) Diabetes mellitus Onset Date: 01/26/17 Current Visit: No Status: Acute Qualifiers: Diabetes mellitus type: type 2 Diabetes mellitus 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 Continue with IV antibiotic 2. Continue with local wound care 3. Wound care consultation/surgical consultation 4. Gentle IV hydration 5. Monitor CBC 6. Strict blood sugar monitoring 7. Pain control 8. MRI results pending 9. Strict blood pressure blood sugar control; monitor renal function 10. GI and DVT prophylaxis Discharge Plan: Home Plan to discharge in: Greater than 2 days - Advance Directives Does patient have a Living Will: No Does patient have a Durable POA for Healthcare: No - Code Status/Comfort Care Code Status Assessed: Yes Code Status: Full Code Critical Care: No Time Spent Managing PTS Care (In Minutes): 45
[2024-11-25] MEDS: VANCOMYCIN 2 GM in NA CHLORIDE 0.9% 500 ML IVPB SCH (18:00)
[2024-11-25] MEDS: levoFLOXacin 750 MG TAB PO SCH (18:00)
[2024-11-25] MEDS ORDERED: Levofloxacin 750mg IV 750 MG/150 ML BAG IV SCH (18:00)
[2024-11-25] MEDS ORDERED: levoFLOXacin 750 MG TAB ONE (18:53)
--- NOTE | 2024-11-25 20:20 | RAD REPORT ---
EXAM: MR Foot Right Wo Cont HISTORY: Evaluate for osteomyelitis [facility] MAIN N Concern for Osteomyelitis COMPARISON: None available TECHNIQUE: Multiplanar multisequence MR images were obtained of the right foot without contrast. FINDINGS: Sequelae of fifth digit amputation at the level of the mid metatarsal shaft. Marrow signal abnormalit y including low T1 signal and increased T2 signal along the proximal residual aspect of the fifth metatarsal, including the base. Marrow signal elsewhere is preserved. Soft tissue swelling and irregularity along the amputation stump, with cutaneous soft tissue swelling extending along the lateral aspect of the dorsal left foot. Heterogeneous signal abnormalities within the lateral plantar soft tissues approximately at the level of the base of the fifth metatarsa l, may partially extend within the adjacent deep muscles of the foot, see series 9 image 11 among others, without discrete evidence of a focal fluid collection, within limits of noncontrast evaluatio n. Scattered up to moderate degenerative changes throughout the midfoot. IMPRESSION: Marrow signal abnormality proximal residual aspect of the tarsal reaching the base, concerning for os teomyelitis. Heterogeneous soft tissue signal extending along the lateral plantar aspect of the foot at the level of the fifth metatarsal base, could represent a small sinus tract or phlegmon. Please note that evaluation is limited without IV contrast.
[2024-11-25] MEDS: MORPHINE 2 MG/ML SYR IV PRN (20:56)
[2024-11-25 23:37] VITALS: BMI 34.8
[2024-11-26] MEDS: ACETAMINOPHEN 500 MG TAB PO PRN (04:52)
[2024-11-26 05:18] LABS: Anion Gap 7.9 mEq/L (5.0-15.0); Potassium 3.9 mEq/L (3.5-5.1)
[2024-11-26 05:52] LABS: Absolute Eosinophils 0.1 K/uL (0-0.5); Absolute Monocytes 1.1 K/uL (0.1-1.3); Absolute Neutrophil 4.9 K/uL (1.8-8.0); Basophils % 0.6 % (0-1.3); Eosinophils % 1.7 % (0-4.4); Hemoglobin 12.4 g/dL (13.6-17.9); Lymphocytes % 24.3 % (15.3-44.8); MCH 30.6 pg (27.0-35.0); MCHC 33.6 g/dL (32.0-36.0); MPV 8.7 fL (7.6-11.3); Neutrophils % 60.4 % (41.7-73.7); Nucleated Red Blood Cells % 0.1 % (0-0); Platelets 303 thou/uL (152-406); RBC Red Blood Cell Count 4.07 M/uL (4.33-5.43); Red Cell Distribution Width 13.2 % (12.1-15.2)
--- NOTE | 2024-11-26 06:57 | P.PN ---
Subjective Date of Service: 11/26/24 Subjective: No new changes Complaining of pain of the left foot, left toe, history of recent amputation by Dr. Barron <Micaela Zee - Last Filed: 11/27/24 07:03> Date of Service: 11/26/24 <Shayne William - Last Filed: 11/29/24 02:34> Review of Systems 10-point ROS is otherwise unremarkable <Micaela Zee - Last Filed: 11/27/24 07:03> Physical Examination - Vital Signs Temperature: 97.4 F Blood Pressure: 170/79 Pulse: 70 Respirations: 16 Pulse Ox (%): 99 - Physical Exam General: Alert, In no apparent distress, Oriented x3 HEENT: Atraumatic, Normocephalic Neck: 2+ carotid pulse no bruit, JVD not distended Respiratory: Clear to auscultation bilaterally, Normal air movement Cardiovascular: Normal pulses, Regular rate/rhythm Gastrointestinal: Normal bowel sounds, Soft and benign Musculoskeletal: Other (Lft foot pain, lateral open DM ulcer with erthema, edema, w dry dressing) Integumentary: Tenderness/swelling (Left lateral foot, ), Diabetic ulcer, Other (Lft foot pain, ulcer with erthema, edema, w dry dressing) Neurological: Normal speech, Normal strength at 5/5 x4 extr - Studies Laboratory Data (last 24 hrs) 11/25/24 11/25/24 17:05 17:05 WBC 10.80 Hgb 13.8 Hct 40.6 Plt Count 354 Sodium 139 Potassium 3.8 BUN 18 Creatinine 0.89 Glucose 138 H <Micaela Zee - Last Filed: 11/27/24 07:03> Assessment And Plan - Current Problems (Diagnosis) (1) Cellulitis of left foot Current Visit: Yes Status: Acute (2) Osteomyelitis of foot, left, acute Current Visit: Yes Status: Acute (3) Diabetic ulcer of left foot Current Visit: No Status: Acute Qualifiers: Diabetic foot ulcer location: unspecified part of foot - Plan Assessment Left foot diabetic foot ulcer Left foot cellulitis, Questionable osteomyelitis, Insulin-dependent diabetes mellitus -Admit to [facility] -Surgery consult Dr. Barron -Patient seen by vascular surgery Dr Garcia had a recent s angioplasty (was at wk post visit) was referred to Dr Barron/ER for worsening pain, swelling, erthema -Recently discharged admission date 10-22, was discharged home on vancomycin, p.o. Levaquin with ampuation 5th toe ampuation (10/21/24) -S/P ID at bedside 11/27/24 (daily wound care wound care clean with vashe, santyl to necrotic wound) dry dressing,. Pt is seen by [facility]) -11/26/24 Pending wound culture (GM neg rods +2 pending sensitivity) -11/25/24 MRI of the left foot Marrow signal abnormality proximal residual aspect of the tarsal reaching the base, concerning for osteomyelitis. Heterogeneous soft tissue signal extending along the lateral plantar aspect of the foot at the level of the fifth metatarsal base, could represent a small sinus tract or phlegmon. -IV antibiotics, vancomycin Lovenox, -As needed analgesics, antiemetics, Full code Diabetic diet Disposition Home independent prior Discharge Plan: Home - Code Status/Comfort Care Code Status: Full Code Critical Care: No Time Spent Managing PTS Care (In Minutes): 35 <Micaela Zee - Last Filed: 11/27/24 07:03> - Current Problems (Diagnosis) (1) Osteomyelitis of foot, left, acute Current Visit: Yes Status: Acute (2) Type 2 diabetes mellitus Current Visit: Yes Status: Acute (3) Hypertension Current Visit: Yes Status: Acute (4) Morbid obesity Current Visit: Yes Status: Acute (5) Diabetes mellitus Onset Date: 01/26/17 Current Visit: No Status: Acute Qualifiers: Diabetes mellitus type: type 2 Diabetes mellitus senior living insulin 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 Events of the last 24 hours have been noted. Case discussed with GLENDY. I performed a substantial part of the MDM during this patient's care today. I personally made or approved the documented management plan and acknowledge its risk of complications. I agree with the findings and documentation provided in the GLENDY's notes Patient will get wound care with Dr. Barron. Continue with antibiotics. Arrange for wound VAC placement as well. <Shayne William - Last Filed: 11/29/24 02:34>
[2024-11-26] MEDS ORDERED: BISACODYL E.C. 5 MG TAB PO PRN (07:00)
--- NOTE | 2024-11-26 12:26 | CON ---
Date of Consultation: 11/25/2024 Reason For Consultation: Pain in the left lateral foot. History Of Present Illness: The patient is a 64-year-old gentleman, well known to me from the wound clinic, recent fifth toe amputation about a month or so ago, who I last saw in the wound clinic last Thursday, was doing well. He went and saw Dr. Garcia for followup following his angioplasty procedure o n his left leg and was noted to have increased swelling, redness, and pain. The patient was advised to go to the emergency room and be evaluated and the patient was admitted and I was consulted. The p atient is awake and alert this morning. No sore throat, runny nose, cough, headaches, or dizziness. No chest pain. No fever or chills and no purulent discharge. The wound treatment was consisting of Santyl with wound VAC. There were no issues the last time the patient was seen in our clinic. Dumont courtney, he is complaining of increasing pain in the lateral aspect of the foot with swelling and stated that his toes looked edematous. Review of Systems: Otherwise unremarkable. Past Medical History: Hypertension, diabetes, coronary artery disease, CHF. Past Surgical History: CABG, cataract surgery, shoulder surgery, appendectomy, left foot fifth toe t ransmetatarsal amputation recently. Allergies: LATEX, LISINOPRIL, METFORMIN. Social History: This patient does not smoke or drink alcohol. Family History: Noncontributory. Physical Examination: Vital Signs: Stable, he is afebrile. General: He is awake, alert, oriented x3. Head and Neck: No masses. Chest: Clear. Heart: S1, S2. Abdomen: Soft. Extremities: Slightly diminished dorsalis pedis and posterior tibial pulses. On the left foot, ther e is erythema at the base of the left lateral foot wound which is approximately 6 x 3 cm. There is a necrotic base which was debrided at the bedside and cultures were done of the necrotic tissue. See note below. There is edema, warmth and redness proximal to the wound on the lateral aspect of the fo ot extending almost to the heel, but there is no purulent discharge. There is a little bit of tender ness. Diagnostic Data: White count is normal. There is no left shift. Chemistry reviewed, essentially un remarkable except for some elevated glucose. The patient had an MRI which was reviewed and shows mar row signal abnormality proximal residual aspect of the tarsal reaching the base concerning for osteo. Heterogeneous soft tissue signal extending along the lateral plantar aspect of the foot level of th e fifth metatarsal base. Could represent a small sinus tract or phlegmon. Assessment: A 64-year-old gentleman with diabetes, peripheral vascular disease, infected wound with possible osteomyelitis. Recommendations: Continue IV antibiotics as ordered. I will debride the wound at the bedside, see n ote below. We will change the dressing to Santyl with daily dressings. The patient may need a forma l debridement in the OR depending upon his response to Santyl. We will check the cultures and adjust antibiotics accordingly. We will hold the wound VAC for now. We will make further recommendations as the case develops. MARÍA/RONALDO Voice ID: [id number] Report ID: [id number]
[2024-11-26] MEDS: COLLAGENASE 30 GM OINTMENT TOP SCH (14:30)
[2024-11-26] MEDS: HYDROCODONE/APAP 7.5/325 MG TAB PO PRN (18:11)
[2024-11-27 05:19] LABS: Absolute Basophils 0.1 K/uL (0-0.5); Absolute Eosinophils 0.2 K/uL (0-0.5); Absolute Lymphocytes (CBC) 2.2 K/uL (0.7-4.9); Absolute Monocytes 0.9 K/uL (0.1-1.3); Basophils % 0.7 % (0-1.3); Eosinophils % 2.3 % (0-4.4); Hematocrit 36.9 % (39.6-49.0); Hemoglobin 12.4 g/dL (13.6-17.9); Lymphocytes % 26.7 % (15.3-44.8); MCH 30.7 pg (27.0-35.0); MCHC 33.7 g/dL (32.0-36.0); MCV 91.1 fL (80-100); MPV 8.3 fL (7.6-11.3); Monocytes % 10.9 % (3.3-12.3); Neutrophils % 59.4 % (41.7-73.7); Platelets 312 thou/uL (152-406); RBC Red Blood Cell Count 4.05 M/uL (4.33-5.43); Red Cell Distribution Width 13.3 % (12.1-15.2)
[2024-11-27 05:46] LABS: Anion Gap 7.1 mEq/L (5.0-15.0); Potassium 4.1 mEq/L (3.5-5.1)
[2024-11-27] MEDS: INSULIN REGULAR (HUMAN) 100 UNIT/ML SQ SCH (07:30)
[2024-11-27] MEDS: LOSARTAN/HCTZ 50-12.5 PO SCH (08:34)
[2024-11-27] MEDS: AMIODARONE HCL 200 MG TAB PO SCH (08:34)
[2024-11-27] MEDS: METOPROLOL XL 100 MG TAB PO SCH (08:34)
[2024-11-27] MEDS: FUROSEMIDE 40 MG TABLET PO SCH (08:34)
--- NOTE | 2024-11-27 12:34 | PN ---
Date of Progress Note: 11/27/2024 Subjective: Patient is awake and alert. No complaint. Objective: Vital Signs: Stable and afebrile. Extremities: Examination of the wound reveals there is still fibrin present and there may be a sinus in the wound extending proximally. The erythema and warmth have slightly improved as has the edema. Laboratory Data: Microbiology: Gram stain shows likely staph infection, 3+ Staph coag positive. Laboratory data reviewed. White count is normal. Chemistry is essentially unremarkable. Assessment: Left foot infected wound with osteomyelitis. Recommendations: Continue IV antibiotics ordered. Check cultures and adjust antibiotics accordingly . Patient will need a PICC line, and we will take the patient to surgery for debridement of the left foot wound tomorrow under anesthesia, so we can get a much better access to any sinus or phlegmon th at may be present. Patient understands risks, benefits, and alternatives, and agrees to procedure. /MODL Voice ID: [id number] Report ID: [id number]
--- NOTE | 2024-11-27 13:24 | P.PN ---
Date of Service: 11/27/24 subjective no reported pain, plan for ID in am, npo after MN Review of Systems 10-point ROS is otherwise unremarkable Physical Examination - Vital Signs reviewed - Physical Exam General: Alert, In no apparent distress, Oriented x3, afebrile HEENT: Atraumatic, Normocephalic Neck: 2+ carotid pulse no bruit, JVD not distended Respiratory: Clear to auscultation bilaterally, unlabored Cardiovascular: Normal pulses, Regular rate/rhythm Gastrointestinal: Normal bowel sounds, Soft and benign Musculoskeletal: Other (Lft foot pain,LLE weakness with ambulation Integumentary: (Left lateral foot, ), Diabetic ulcer, Other (Lft foot pain, ulcer with erthema, edema, w dry dressing covered with Acewrap Neurological: Normal speech, Normal strength at 5/5 x4 extr Assessment And Plan - Current Problems (Diagnosis) (1) Cellulitis of left foot Current Visit: Yes Status: Acute (2) Osteomyelitis of foot, left, acute Current Visit: Yes Status: Acute (3) Diabetic ulcer of left foot Current Visit: No Status: Acute Qualifiers: Diabetic foot ulcer location: unspecified part of foot - Plan Assessment Left foot diabetic foot ulcer Left foot cellulitis, Questionable osteomyelitis, Insulin-dependent diabetes mellitus -Admit to [facility] -Surgery consult Dr. Barron -IV antibiotics, vancomycin Lovenox, -As needed analgesics, antiemetics, -11/27 NPO after mn for ID in am -11/26/24 Pending wound culture (GM neg rods +2 pending sensitivity) -11/25/24 MRI of the left foot Marrow signal abnormality proximal residual aspect of the tarsal reaching the base, concerning for osteomyelitis. Heterogeneous soft tissue signal extending along the lateral plantar aspect of the foot at the level of the fifth metatarsal base, could represent a small sinus tract or phlegmon. -Patient seen by vascular surgery Dr Garcia had a recent s angioplasty (was at wk post visit) was referred to Dr Barron/ER for worsening pain, swelling, erthema -Recently discharged admission date 10-22, was discharged home on vancomycin, p.o. Levaquin with ampuation 5th toe ampuation (10/21/24) -S/P ID at bedside 11/27/24 (daily wound care wound care clean with vashe, santyl to necrotic wound) dry dressing,. Pt is seen by [facility]) Full code Diabetic diet Disposition Home independent prior Discharge Plan: Home - Code Status/Comfort Care Code Status: Full Code Critical Care: No Time Spent Managing PTS Care (In Minutes): 35 <Micaela Zee - Last Filed: 11/27/24 14:59> Chart has been reviewed. Events of the last 24 hours have been noted. Case discussed with GLENDY. I performed a substantial part of the MDM during this patient's care today. I personally made or approved the documented management plan and acknowledge its risk of complications. I agree with the findings and documentation provided in the GLENDY's notes Patient will get wound care with Dr. Barron. Continue with antibiotics. Arrange for wound VAC placement as well. <Shayne William - Last Filed: 11/29/24 02:34>
[2024-11-27] MEDS: Mupirocin NASAL 2 APPL/1 GM TUBE NAS SCH (20:49)
[2024-11-28 04:59] LABS: Absolute Basophils 0.1 K/uL (0-0.5); Absolute Eosinophils 0.2 K/uL (0-0.5); Absolute Lymphocytes (CBC) 2.3 K/uL (0.7-4.9); Absolute Monocytes 0.9 K/uL (0.1-1.3); Absolute Neutrophil 4.4 K/uL (1.8-8.0); Basophils % 0.9 % (0-1.3); Hematocrit 37.4 % (39.6-49.0); Hemoglobin 12.8 g/dL (13.6-17.9); Lymphocytes % 28.8 % (15.3-44.8); MCH 30.8 pg (27.0-35.0); MCHC 34.2 g/dL (32.0-36.0); MCV 90.3 fL (80-100); MPV 8.1 fL (7.6-11.3); Monocytes % 11.9 % (3.3-12.3); Neutrophils % 55.4 % (41.7-73.7); Nucleated Red Blood Cells % 0.1 % (0-0); Platelets 309 thou/uL (152-406); RBC Red Blood Cell Count 4.14 M/uL (4.33-5.43); Red Cell Distribution Width 13.3 % (12.1-15.2)
--- NOTE | 2024-11-28 06:16 | RAD REPORT ---
PROCEDURE: XR Chest, 1 View CLINICAL INDICATION: The patient is 64 years old and is Male; Confirmation of PICC Placement TECHNIQUE: Frontal view of the chest. COMPARISON: No relevant prior studies available. FINDINGS: LUNGS: No discrete focal consolidation. PLEURAL SPACE: No appreciable pleural effusion or pneumothorax. HEART: Coronary artery bypass graft (CABG). Left atrial appendage clip. MEDIASTINUM: Unremarkable cardiomediastinal contour. BONES/JOINTS: Median sternotomy. TUBES, LINES AND DEVICES: Right upper extremity PICC tip terminates in the SVC. IMPRESSION: 1. Right upper extremity PICC tip terminates in the SVC. 2. No acute cardiopulmonary abnormality. Electronically signed by: John Paul Parekh MD 11/28/2024 05:[address] [facility] Due to temporary technical issues with the PACS/[employer] reporting system, reports are being mann d by the in-house radiologist without review as a courtesy to ensure prompt reporting the interpreting radiologist is fully responsible for the content of the report. Transcribed Date/Time: 11/28/2024 6:16 AM
[2024-11-28] MEDS ORDERED: propofoL 200 MG/20 ML VIAL IV ONE (08:01)
[2024-11-28] MEDS ORDERED: MIDAZOLAM HCL 2 MG/2 ML INJ ONE (08:01)
[2024-11-28] MEDS ORDERED: FENTANYL CITR 100 MCG/2 ML ONE (08:02)
[2024-11-28] MEDS ORDERED: LIDOCAINE 2% MPF 5 ML VIAL ONE (08:02)
[2024-11-28] MEDS: NA CHLORIDE 0.9% 500 ML ONE (08:53)
[2024-11-28] MEDS: AMPICILLIN/SULBACT 3 GM in NA CHLORIDE 0.9% 100 ML IVPB SCH (09:00)
[2024-11-28] MEDS: BUPIVACAINE 0.5% PF 10 ML VIAL ONE (09:00)
[2024-11-28] MEDS ORDERED: ONDANSETRON 4 MG/2 ML VIAL ONE (09:07)
[2024-11-28] MEDS ORDERED: EPHEDRINE SULF 50 MG/ML VIAL ONE (09:29)
--- NOTE | 2024-11-28 09:44 | P.OP ---
Date of Service: 11/28/24 Preop diagnosis: Infected left foot wound with osteomyelitis Postop diagnosis: Same Procedure performed: Debridement infected left foot wound 8 x 4 cm to subcutaneous tissue and bone Surgeon: Hardik Barron MD [employer] Supervisor: None Estimated blood loss: Minimal Specimen: Debridement tissue and bone Findings: As above Anesthesia: General Complications: None Drains: None Fluids and blood products: Nonapplicable Disposition: Recovery room Operative note: Patient brought to the OR and placed in supine position. General anesthesia began. Patient prepped and draped in usual sterile fashion. Marcaine 0.5%. Locally for postop pain control. Then scissors used to debride necrotic tissue at the base of the wound. Part of the metatarsal bone identified. Rongeur used to debride the bone that was exposed. Tissue and bone were sent for cultures. Curette was used to debride all the fibrin present in the wound. Wound irrigated and bleeding controlled cautery. Bone wax used to control bleeding from the metatarsal bone. Santyl wet-to-dry normal saline dressing change applied. Patient awakened. Patient taken to recovery room in good general condition. CC:
[2024-11-28] MEDS: COLLAGENASE 30 GM OINTMENT TOP ONE (09:52)
[2024-11-28] MEDS ORDERED: CHLORHEXIDINE GLUCO 4% 120 ML TOP SCH (10:00)
[2024-11-28] MEDS: VANCOMYCIN 2 GM in NA CHLORIDE 0.9% 500 ML IVPB SCH (17:59)
[2024-11-28] MEDS: ENOXAPARIN 40 MG/0.4 ML SQ SCH (17:59)
--- NOTE | 2024-11-28 18:54 | P.PN ---
Date of Service: 11/28/24 subjective pt in OR this am Review of Systems 10-point ROS is otherwise unremarkable Physical Examination - Vital Signs reviewed - Physical Exam General: Alert, In no apparent distress, Oriented x3, afebrile HEENT: Atraumatic, Normocephalic Neck: 2+ carotid pulse no bruit, JVD not distended Respiratory: Clear to auscultation bilaterally, unlabored Cardiovascular: Normal pulses, Regular rate/rhythm Gastrointestinal: Normal bowel sounds, Soft and benign Musculoskeletal: Other (Lft foot pain, LLE weakness with ambulation) Integumentary: (Left lateral foot, ), Diabetic ulcer, Other (Lft foot pain, post op dressing) Neurological: Normal speech, Normal strength at 5/5 x4 extr Assessment And Plan - Current Problems (Diagnosis) (1) Cellulitis of left foot Current Visit: Yes Status: Acute (2) Osteomyelitis of foot, left, acute Current Visit: Yes Status: Acute (3) Diabetic ulcer of left foot Current Visit: No Status: Acute Qualifiers: Diabetic foot ulcer location: unspecified part of foot - Plan Assessment Left foot diabetic foot ulcer Left foot cellulitis, Questionable osteomyelitis, Insulin-dependent diabetes mellitus -Admit to [facility] -Surgery consult Dr. Barron -IV antibiotics, vancomycin Lovenox, -As needed analgesics, antiemetics, -11/27 NPO after mn for ID in am -11/26/24 Pending wound culture (GM neg rods +2 pending sensitivity) -11/25/24 MRI of the left foot Marrow signal abnormality proximal residual aspect of the tarsal reaching the base, concerning for osteomyelitis. Heterogeneous soft tissue signal extending along the lateral plantar aspect of the foot at the level of the fifth metatarsal base, could represent a small sinus tract or phlegmon. -Patient seen by vascular surgery Dr Garcia had a recent s angioplasty (was at wk post visit) was referred to Dr Barron/ER for worsening pain, swelling, erthema -Recently discharged admission date 10-22, was discharged home on vancomycin, p.o. Levaquin with ampuation 5th toe ampuation (10/21/24) -S/P ID at bedside 11/27/24 (daily wound care wound care clean with vashe, santyl to necrotic wound) dry dressing,. Pt is seen by [facility]) 11/28/24 to OR for debridement Full code Diabetic diet Disposition Home independent prior Discharge Plan: Home - Code Status/Comfort Care Code Status: Full Code Critical Care: No <Monika Coronado Jose Maria - Last Filed: 11/28/24 18:52> Chart has been reviewed. Events of the last 24 hours have been noted. Case discussed with GLENDY. I performed a substantial part of the MDM during this patient's care today. I personally made or approved the documented management plan and acknowledge its risk of complications. I agree with the findings and documentation provided in the GLENDY's notes Patient will get wound care with Dr. Barron. Continue with antibiotics. Arrange for wound VAC placement as well. <Shayne William - Last Filed: 11/29/24 02:34>
[2024-11-29 06:22] LABS: Anion Gap 6.5 mEq/L (5.0-15.0); Potassium 3.5 mEq/L (3.5-5.1)
[2024-11-29 06:23] LABS: Absolute Basophils 0.1 K/uL (0-0.5); Absolute Eosinophils 0.2 K/uL (0-0.5); Absolute Monocytes 0.8 K/uL (0.1-1.3); Absolute Neutrophil 3.9 K/uL (1.8-8.0); Basophils % 0.7 % (0-1.3); Eosinophils % 2.9 % (0-4.4); Hematocrit 35.8 % (39.6-49.0); Hemoglobin 12.3 g/dL (13.6-17.9); Lymphocytes % 28.5 % (15.3-44.8); MCH 30.6 pg (27.0-35.0); MCHC 34.4 g/dL (32.0-36.0); MPV 8.6 fL (7.6-11.3); Monocytes % 11.1 % (3.3-12.3); Neutrophils % 56.8 % (41.7-73.7); Platelets 308 thou/uL (152-406); RBC Red Blood Cell Count 4.03 M/uL (4.33-5.43); Red Cell Distribution Width 13.1 % (12.1-15.2)
--- NOTE | 2024-11-29 12:11 | PN ---
Date of Progress Note: 11/29/2024 Subjective: The patient is awake, alert. No complaint. Objective: Vital Signs: Stable, afebrile. Laboratory Data: White count is 6.9. The wound cultures from the OR showing gram-positive cocci in clusters. Coag positive consistent with probably staph infection. Dressing is clean, dry, intact. Assessment: Status post debridement of left foot wound for infection and osteo. Recommendation: Check cultures. Adjust antibiotics accordingly. Most likely, the patient will need vancomycin and wound care as ordered. Likely discharge in 24 to 48 hours once we get the exact orga nism from the OR. The patient already has a PICC line. The patient would be a candidate for hyperba faye oxygen therapy as an outpatient who will arrange for that. The patient will follow up with [facility] after discharge. MARÍA/RONALDO Voice ID: [id number] Report ID: [id number]
--- NOTE | 2024-11-29 18:08 | P.PN ---
Date of Service: 11/29/24 subjective No voiced complaints Review of Systems 10-point ROS is otherwise unremarkable Physical Examination - Vital Signs reviewed - Physical Exam General: Alert, In no apparent distress, Oriented x3, afebrile HEENT: Atraumatic, Normocephalic Neck: 2+ carotid pulse no bruit, JVD not distended Respiratory: Clear to auscultation bilaterally, unlabored Cardiovascular: Normal pulses, Regular rate/rhythm Gastrointestinal: Normal bowel sounds, Soft and benign Musculoskeletal: Other (Lft foot pain, LLE weakness with ambulation) Integumentary: (Left lateral foot, ), Diabetic ulcer, Other (Lft foot pain improved, post op dressing) Neurological: Normal speech, Normal strength at 5/5 x4 extr Assessment And Plan - Current Problems (Diagnosis) (1) Cellulitis of left foot Current Visit: Yes Status: Acute (2) Osteomyelitis of foot, left, acute Current Visit: Yes Status: Acute (3) Diabetic ulcer of left foot Current Visit: No Status: Acute Qualifiers: Diabetic foot ulcer location: unspecified part of foot - Plan Assessment Left foot diabetic foot ulcer Left foot cellulitis, Questionable osteomyelitis, Insulin-dependent diabetes mellitus -Admit to [facility] -Surgery Dr. Barron following -IV antibiotics, vancomycin Lovenox, -As needed analgesics, antiemetics, -11/27 NPO after mn for ID in am -11/26/24 Pending wound culture (GM neg rods +2 pending sensitivity) -11/25/24 MRI of the left foot Marrow signal abnormality proximal residual aspect of the tarsal reaching the base, concerning for osteomyelitis. Heterogeneous soft tissue signal extending along the lateral plantar aspect of the foot at the level of the fifth metatarsal base, could represent a small sinus tract or phlegmon. -Patient seen by vascular surgery Dr Garcia had a recent s angioplasty (was at wk post visit) was referred to Dr Barron/ER for worsening pain, swelling, erthema -Recently discharged admission date 10-22, was discharged home on vancomycin, p.o. Levaquin with ampuation 5th toe ampuation (10/21/24) -S/P ID at bedside 11/27/24 (daily wound care wound care clean with vashe, santyl to necrotic wound) dry dressing,. Pt is seen by [facility]) 11/28/24 to OR for debridement 11/29/2024. Wound/tissue culture positive for MRSA. Patient continues on vancomycin. Dr. Barron following likely discharge tomorrow Full code Diabetic diet Disposition Home independent prior Discharge Plan: Home - Code Status/Comfort Care Code Status: Full Code Critical Care: No
[2024-11-30] MEDS: LOSARTAN POTASSIUM 50 MG TABLET PO SCH (09:00)
--- NOTE | 2024-11-30 11:14 | PN ---
Date of Progress Note: 11/30/2024 Subjective: The patient is awake, alert. No complaint. Vitals stable, afebrile. OR cultures revie wed, MRSA sensitive to vancomycin. Objective: Vital Signs: Stable, afebrile. Extremities: Examination of the foot reveals good granulation tissue. Minimal fibrin present at the base of the wound. There is decreasing erythema, warmth, and edema. Laboratory Data: Reviewed. Assessment: Status post debridement of infected left foot wound with osteomyelitis. Recommendation: Wound care as ordered. Vancomycin per protocol for 6 weeks. The patient is cleared for discharge from surgery standpoint. Can follow up [facility] in my clinic next week. /MODL Voice ID: [id number] Report ID: [id number]
[2024-11-30] MEDS ORDERED: GLUCAGON 1 MG/VIAL IM PRN (15:27)
[2024-11-30] MEDS ORDERED: D10W 125 ML IV PRN (15:27)
[2024-11-30] MEDS ORDERED: VANCOMYCIN 2 GM in NA CHLORIDE 0.9% 500 ML IVPB SCH (16:00)
[2024-11-30] MEDS: VANCOMYCIN 2 GM in NA CHLORIDE 0.9% 500 ML IVPB SCH (16:39)
--- NOTE | 2024-11-30 17:10 | P.PN ---
Date of Service: 11/30/24 subjective No voiced complaints Review of Systems 10-point ROS is otherwise unremarkable Physical Examination - Vital Signs reviewed - Physical Exam General: Alert, In no apparent distress, Oriented x3, afebrile HEENT: Atraumatic, Normocephalic Neck: 2+ carotid pulse no bruit, JVD not distended Respiratory: Clear to auscultation bilaterally, unlabored Cardiovascular: Normal pulses, Regular rate/rhythm Gastrointestinal: Normal bowel sounds, Soft and benign Musculoskeletal: Other (Lft foot pain, LLE weakness with ambulation) Integumentary: (Left lateral foot, ), Diabetic ulcer, Other (Lft foot pain improved, dressing change this am) Neurological: Normal speech, Normal strength at 5/5 x4 extr Assessment And Plan - Current Problems (Diagnosis) (1) Cellulitis of left foot Current Visit: Yes Status: Acute (2) Osteomyelitis of foot, left, acute Current Visit: Yes Status: Acute (3) Diabetic ulcer of left foot Current Visit: No Status: Acute Qualifiers: Diabetic foot ulcer location: unspecified part of foot - Plan Assessment Left foot diabetic foot ulcer Left foot cellulitis, Questionable osteomyelitis, Insulin-dependent diabetes mellitus -Admit to [facility] -Surgery Dr. Barron following -IV antibiotics, vancomycin Lovenox, -As needed analgesics, antiemetics, -11/27 NPO after mn for ID in am -11/26/24 Pending wound culture (GM neg rods +2 pending sensitivity) -11/25/24 MRI of the left foot Marrow signal abnormality proximal residual aspect of the tarsal reaching the base, concerning for osteomyelitis. Heterogeneous soft tissue signal extending along the lateral plantar aspect of the foot at the level of the fifth metatarsal base, could represent a small sinus tract or phlegmon. -Patient seen by vascular surgery Dr Garcia had a recent s angioplasty (was at wk post visit) was referred to Dr Barron/ER for worsening pain, swelling, erthema -Recently discharged admission date 10-22, was discharged home on vancomycin, p.o. Levaquin with ampuation 5th toe ampuation (10/21/24) -S/P ID at bedside 11/27/24 (daily wound care wound care clean with vashe, santyl to necrotic wound) dry dressing,. Pt is seen by [facility]) 11/28/24 to OR for debridement 11/29/2024. Wound/tissue culture positive for MRSA. Patient continues on vancomycin. Dr. Barron following likely discharge tomorrow 11/30/24 Awaiting vanc level prior to dc. Pt would like to stay overnight secondary to IV abx setup. Will finalize HH plan and discharge in am Full code Diabetic diet Disposition Home independent prior Discharge Plan: Home - Code Status/Comfort Care Code Status: Full Code Critical Care: No
--- NOTE | 2024-11-30 17:24 | P.DS ---
Admission Date: 11/25/24 Discharge Date: 12/01/24 Reason for Admission: Pain on the lateral left foot Consultations: Dr. Barron Procedures: Debridement of left lateral foot wound Brief History of Present Illness: Patient is a 64-year-old gentleman came to the hospital for swelling of the left foot. According to the patient the swelling has been worse than normal. 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 Patient has been getting care and antibiotic therapy. He is on oral antibiotic therapy at this time. He is has a wound VAC in place as well. Was told by the vascular surgeon that the swelling was looking a little worse so he was told to come into the emergency room for further evaluation. In the ER patient was seen by physician and general surgery was consulted. Plan was to admit the patient to the hospital with MRI evaluation. At this time patient will be admitted for inpatient hospitalization. MRI is pending. Labs are pending. <Alice Coronadoesmer Moise - Last Filed: 12/01/24 06:17> Admission Date: 11/25/24 Discharge Date: 12/01/24 Hospital Course: Discharge diagnosis Assessment Left foot diabetic foot ulcer Left foot cellulitis, Osteomyelitis-left foot Insulin-dependent diabetes mellitus Patient is a 64-year-old gentleman came to the hospital for swelling of the left foot. According to the patient the swelling has been worse than normal. 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 Patient has been getting care and antibiotic therapy. He is on oral antibiotic therapy at this time. He is has a wound VAC in place as well. Was told by the vascular surgeon that the swelling was looking a little worse so he was told to come into the emergency room for further evaluation. In the ER patient was seen by physician and general surgery was consulted. Plan was to admit the patient to the hospital with MRI evaluation. At this time patient will be admitted for inpatient hospitalization. MRI is pending. Labs are pending. Mr. Pena is well-known to Dr. Barron. He underwent left lower extremity angioplasty and then developed significant pain to his lateral foot. Dr. Barron took him to the OR for debridement of the lateral fifth metatarsal and the culture of the tissue/bone was positive for MRSA. He will receive 2 g of vancomycin daily x 6 weeks per home health. He will follow-up with Dr. Barron as above with daily dressing changes and the possibility of hyperbarics. His medication regimen is stable and he will continue those with follow-up with his PCP. <rhina melgoza - Last Filed: 12/01/24 19:22> Disposition: [facility] HOME/HOME HEALTH CARE Discharge Condition: GOOD Vital Signs/Physical Exam: Temp Pulse Resp BP Pulse Ox 98.0 F 71 12 144/65 H 98 11/30/24 16:00 11/30/24 16:00 11/30/24 16:00 11/30/24 16:00 11/30/24 16:00 General: Alert, In no apparent distress, Oriented x3 HEENT: Atraumatic, Normocephalic Neck: Supple, 2+ carotid pulse no bruit Respiratory: Normal air movement, Diminished Cardiovascular: Normal pulses, Regular rate/rhythm, Normal S1 S2 Capillary refill: <2 Seconds Gastrointestinal: Normal bowel sounds, Soft and benign Musculoskeletal: No clubbing, No tenderness, No warmth Integumentary: Other (Left lateral foot with healthy tissue status post debridement of the lateral metatarsal area) Neurological: Normal speech, Normal tone, Normal affect Lymphatics: No axilla or inguinal lymphadenopathy External genitalia: Deferred Rectal: Deferred Laboratory Data at Discharge: WBC 6.90 thou/uL (4.3-10.9) 11/29/24 05:37 Hgb 12.3 g/dL (13.6-17.9) L 11/29/24 05:37 Hct 35.8 % (39.6-49.0) L 11/29/24 05:37 Plt Count 308 thou/uL (152-406) 11/29/24 05:37 Sodium 136 mEq/L (136-145) 11/29/24 05:37 Potassium 3.5 mEq/L (3.5-5.1) 11/29/24 05:37 BUN 20 mg/dL (7-18) H 11/29/24 05:37 Creatinine 1.05 mg/dL (0.70-1.30) 11/29/24 05:37 Glucose 154 mg/dL (74-106) H 11/29/24 05:37 <Monika Coronado - Last Filed: 12/01/24 06:17> Vital Signs/Physical Exam: Temp Pulse Resp BP Pulse Ox 97.7 F 69 14 145/64 H 99 12/01/24 16:00 12/01/24 16:00 12/01/24 16:00 12/01/24 16:00 12/01/24 16:00 Laboratory Data at Discharge: WBC 6.90 thou/uL (4.3-10.9) 11/29/24 05:37 Hgb 12.3 g/dL (13.6-17.9) L 11/29/24 05:37 Hct 35.8 % (39.6-49.0) L 11/29/24 05:37 Plt Count 308 thou/uL (152-406) 11/29/24 05:37 Sodium 136 mEq/L (136-145) 11/29/24 05:37 Potassium 3.5 mEq/L (3.5-5.1) 11/29/24 05:37 BUN 20 mg/dL (7-18) H 11/29/24 05:37 Creatinine 1.05 mg/dL (0.70-1.30) 11/29/24 05:37 Glucose 154 mg/dL (74-106) H 11/29/24 05:37 <rhina melgoza - Last Filed: 12/01/24 19:22> Diet: ADA <Monika Coronado - Last Filed: 12/01/24 06:17> <rhina melgoza - Last Filed: 12/01/24 19:22> Home Medications: Metoprolol Succinate [Toprol Xl*] 50 mg PO DAILY 01/23/17 Amiodarone HCl [Pacerone] 200 mg PO DAILY 10/20/24 Furosemide 40 mg PO DAILY 10/20/24 Insulin Regular, Human [Novolin R Flexpen] 100 units SQ PRN 10/20/24 Tirzepatide [Mounjaro] 15 mg SQ EVERY 7TH DAY 10/20/24 Insulin Glargine,Hum.rec.anlog [Basaglar Kwikpen U-100] 34 units SQ DAILY 11/30/24 Losartan Potassium 12.5 mg PO DAILY 11/30/24 Lactobacillus Acidophilus [Acidophilus Lactobacilli] 1 each PO BID #90 cap 12/01/24 New Medications: Lactobacillus Acidophilus [Acidophilus Lactobacilli] 1 each PO BID #90 cap Physician Discharge Instructions: Wound Dressing Instructions: Wet-to-dry normal saline dressing change with Santyl daily Vancomycin per protocol for osteomyelitis Follow-up in the wound healing center in my clinic next Thursday, call for appointment Patient is a 64-year-old gentleman came to the hospital for swelling of the left foot. According to the patient the swelling has been worse than normal. 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 Patient has been getting care and antibiotic therapy. He is on oral antibiotic therapy at this time. He is has a wound VAC in place as well. Was told by the vascular surgeon that the swelling was looking a little worse so he was told to come into the emergency room for further evaluation. In the ER patient was seen by physician and general surgery was consulted. Plan was to admit the patient to the hospital with MRI evaluation. At this time patient will be admitted for inpatient hospitalization. MRI is pending. Labs are pending. Mr. Pena is well-known to Dr. Barron. He underwent left lower extremity angioplasty and then developed significant pain to his lateral foot. Dr. Barron took him to the OR for debridement of the lateral fifth metatarsal and the culture of the tissue/bone was positive for MRSA. He will receive 2 g of vancomycin daily x 6 weeks per home health. He will follow-up with Dr. Barron as above with daily dressing changes and the possibility of hyperbarics. His medication regimen is stable and he will continue those with follow-up with his PCP. Followup: Carlos Young MD [Primary Care Provider] - Hardik Barron MD [ACTIVE - CAN ADMIT] - 1 Week (Follow-up in the wound healing center next Thursday in my clinic)
[2024-12-01] MEDS: LOSARTAN 25 MG PO SCH (09:15)
[2024-12-01 10:46] LABS: C.diff Antigen/Toxin Ag neg : Tox neg (NEG : NEG); CDIFF INTERNAL NEG CONTROL White Background (WHITE BKGD); STOOL CONSISTENCY Liquid/Semi-Solid
[2024-12-01] MEDS ORDERED: DIPHENOX/ATROP SULF 1 TAB PO PRN (13:43)
[2024-12-01] MEDS: VANCOMYCIN 2 GM in NA CHLORIDE 0.9% 500 ML IVPB ONE (14:34)
[2024-12-01] MEDS ORDERED: VANCOMYCIN 2 GM in NA CHLORIDE 0.9% 500 ML IVPB SCH (16:00)
[2024-12-02 01:04] VITALS: BP 145/64
[2024-12-02 01:10] VITALS: TEMP 97.7
[2024-12-02 01:14] VITALS: O2SAT 97
[2024-12-02] MEDS ORDERED: METOPROLOL XL 50 MG TAB PO SCH (09:00)
== END 2024-12-01 17:27 | disposition home health service (06) | DRG 987 ==
LOC: ER 15:39 → ERHOLD 17:37 → 2ND 19:48
PROVIDERS: ADMIT Hospitalist; ATTEND Internal Medicine
PROC: 02HV33Z Insertion of Infusion Device into Superior Vena Cava, Percutaneous Approach (ICD-10-PCS; 2024-11-27)
PROC: 0QBP0ZZ Excision of Left Metatarsal, Open Approach (ICD-10-PCS; principal; 2024-11-28 08:30)
DX: E11.52 Type 2 diabetes mellitus with diabetic peripheral angiopathy with gangrene (principal); N18.6 End stage renal disease; I12.0 Hypertensive chronic kidney disease with stage 5 chronic kidney disease or end stage renal disease; L03.116 Cellulitis of left lower limb; M86.172 Other acute osteomyelitis, left ankle and foot; E11.69 Type 2 diabetes mellitus with other specified complication; E11.22 Type 2 diabetes mellitus with diabetic chronic kidney disease; E11.40 Type 2 diabetes mellitus with diabetic neuropathy, unspecified; E11.621 Type 2 diabetes mellitus with foot ulcer; L97.529 Non-pressure chronic ulcer of other part of left foot with unspecified severity; E66.01 Morbid (severe) obesity due to excess calories; I25.2 Old myocardial infarction; I25.10 Atherosclerotic heart disease of native coronary artery without angina pectoris; B95.62 Methicillin resistant Staphylococcus aureus infection as the cause of diseases classified elsewhere; Z79.4 Long term (current) use of insulin; Z88.1 Allergy status to other antibiotic agents; Z95.1 Presence of aortocoronary bypass graft; Z88.8 Allergy status to other drugs, medicaments and biological substances; Z68.34 Body mass index [BMI] 34.0-34.9, adult; Z90.49 Acquired absence of other specified parts of digestive tract; Z91.040 Latex allergy status; Z79.899 Other long term (current) drug therapy; Z89.422 Acquired absence of other left toe(s)
CPT/HCPCS: 36415; 71045; 80048; 80202; 82947; 85025; 87070; 87077; 87186; 87205; 87324; 88304; 88311; 96365; 96366; 99285; J0295; J1650; J2003; J2185; J2250; J2270; J2405; J2704; J3010; J3590; J7040

== ENCOUNTER 2024-12-03 17:16 | Emergency (ER) | payer OTHER, BC ==
--- OUTSIDE RECORDS SUMMARY | 2024-12-03 17:23 | XMS REPORT | Continuity of Care Document ---
Author Name Unknown Address [address] [facility] [place] [address] [facility] Address [address] [facility] [address] [place] [address] Care Team Providers Care Cloth Presser Name Role Phone Hannah Muñoz MD, Carlos Aguirre Primary Care [facility] KJ LOPEZ Attending Clinician Unavailable MOI ESTRADA Attending Clinician Unavailable MOI ESTRADA Attending Clinician MK Martines Attending Clinician UnavailKJ Daniel Attending Clinician Unavailable Collin Attending Clinician Unavailable Paulette Harris MA Attending Clinician AIMEE Wood Attending Clinician Unava ileugenio Barrow RN, Fany Attending Clinician Unavailab le Doctor Unassigned, [place] Attending Clinician U JUAREZ Carbajal Attending Clinician RAEANN Howe Attending Clinician Rivas Gao MD, Juarez Vásquez Attending Clinician + Huy Judge DO Attending Clinician [phone] Draw, [facility] Attending Clinician Rivas Crouch MILK RECEIVER TANK TRUCK, Blaise Guillen Attending Clinician [phone] BLAISE CROUCH Attending Clinician Rivas Stephens RN, Cristina Sheridan Attending Clinician [phone] Petrona Padilla Attending Clinician [phone] Aracely KNAPP, Maya Attending Clinician [phone] Jeramy BE, Elisabet Rinaldi Attending Clinician [phone] Jack ASENCIO, Oleksandr Braswell Attending Clinici an Collin Admitting Clinician Unavailable AIMEE MCGOWAN Admitting Clinician Malini Estrada MD, Moi Admitting Clinician [phone] Jack ASENCIO, Oleksandr Braswell Admitting Clinici an Payers Payer Name Policy Type Policy Number Effective Date Expirati on Date Source [facility] [id number] 2021 00:00:00 2024 00:00:00 OTHER CI [id number] [place] [employer] [id number] 2023 00:00:00 [place] [id number] 2023 00:00:00 JEROME REYNOLDS FROM [facility] [id number] Problems Condition Name Condition Details Condition Category Status Onset Date Resolution Date Last Treatment Date Treating Clinician Comments Source Atheroscle rosis of coronary artery Atheroscle rosis of coronary artery Disease Active 2023-11 00:00: 00 Memoria l Max Epic DM (diabetes mellitus) DM (diabetes mellitus) Disease Active 2023-11 0- 00:00: 00 [place] Epic Neuropathy Neuropathy Disease Active 2023-11 0-01 00:00: 00 [place] Epic Screening for malignant neoplasm of prostate Screening for Malignant Neoplasm of Prostate Problem Active 6-03 00:00: 00 [facility] Secondary polycythem ia Secondary Polycythem ia Problem Active 6 00:00: 00 [facility] Hypernatre keenan Hypernatre keenan Problem Active 6 00:00: 00 [facility] Morbid obesity Morbid Obesity Problem Active 07-25 00:00: 00 [facility] 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 Due to Type 2 Diabetes Mellitus Problem Active 07-25 00:00: 00 [facility] Bilateral cataracts Bilateral Cataracts Problem Active 3-04 00:00: 00 [facility] Long-term current use of insulin Long-term Current Use of Insulin Problem Active 3-04 00:00: 00 [facility] 5 MONTH FOLLOW UP 5 MONTH FOLLOW UP Active 12/27/2021 [facility] Diagnosis Active 2-11 00:00: 00 2022-07-18 16:05:00 [place] I25.10 ECHO COMPLETE I25.10 ECHO COMPLETE Active 09/10/2021 [facility] Diagnosis Active 2020-11 0-26 00:00: 00 2021-12-04 08:34:00 [place] 3 MONTHS FOLLOW UP/ECHO 3 MONTHS FOLLOW UP/ECHO Active 08/29/2021 [facility] Diagnosis Active 2020-11 0-14 00:00: 00 2021-12-27 10:07:00 [place] P22.0 - RESPIRATOR Y DISTRESS SYNDROME P22.0 - RESPIRATOR Y DISTRESS SYNDROME Active 07/23/2021 [facility] Diagnosis Active 9 00:01: 00 2021-07-23 14:01:00 [place] SOB SOB Active 07/16/2021 [facility] Active 07-16 00:00: 00 2021 15:20:00 [place] N/A N/A Active [facility] Diagnosis Active 8 00:00: 00 2021-07-28 12:53:00 [place] Aspartate aminotrans ferase serum level above reference range Aspartate Aminotrans ferase Serum Level above Reference Range Problem Active 8 00:00: 00 [facility] I25.10 - ATHSCL HEART DISEASE OF [place] I25.10 - ATHSCL HEART DISEASE OF [place] Active 06/19/2021 [facility] Diagnosis Active 8 00:01: 00 2021-06-26 13:26:00 [place] I25.10 I25.10 Active 06/19/2021 [facility] Diagnosis Active 06-19 00:00: 00 2021-06-21 09:32:00 [place] Foot callus Foot Callus Problem Active 8 00:00: 00 [facility] Body mass index 40+ - severely obese Body Mass Index 40+ - Severely Obese Problem Active 8 00:00: 00 [facility] Atheroscle rosis of coronary artery without angina pectoris Atheroscle rosis of Coronary Artery without Angina Pectoris Problem Active 8 00:00: 00 [facility] Type 2 diabetes mellitus Type 2 Diabetes Mellitus Problem Active 8 00:00: 00 [facility] Hyperlipid emia Hyperlipid emia Problem Active 8 00:00: 00 [facility] Hypertensi ve disorder Hypertensi ve Disorder Problem Active 8 00:00: 00 [facility] Atrial fibrillati on Atrial Fibrillati on Problem Active 8 00:00: 00 [facility] Longstandi ng persistent atrial fibrillati on Longstandi ng persistent atrial fibrillati on Disease Active 06-05 00:00: 00 [facility] Anticoagul ation management encounter Anticoagul ation management encounter Disease Active 06-05 00:00: 00 [facility] Coronary artery disease involving council heart without angina pectoris Coronary artery disease involving council heart without angina pectoris Disease Active 06-05 00:00: 00 [facility] Obstructiv e sleep apnea Obstructiv e sleep apnea Disease Active 06-05 00:00: 00 [facility] Essential hypertensi on Essential hypertensi on Disease Active 06-05 00:00: 00 [facility] R07.9,I25. 10,I25.10, I50.22 R07.9,I25. 10,I25.10, I50.22 Active 05/29/2021 [place] Diagnosis Active 05-29 00:00: 00 2021-06-05 10:50:00 [place] 6WK FOLLOW UP 6WK FOLLOW UP Active 05/23/2021 [facility] Diagnosis Active 05-23 00:00: 00 2021-08-29 14:00:00 [place] NSTEMI (non-ST elevated myocardial infarction ) NSTEMI (non-ST elevated myocardial infarction ) Disease Active 05-23 00:00: 00 [facility] Acute congestive heart failure Acute congestive heart failure Disease Active 05-23 00:00: 00 [facility] New onset atrial fibrillati on New onset atrial fibrillati on Disease Active 05-23 00:00: 00 [facility] I50.22 I25.10 I48.91 I50.22 I25.10 I48.91 Active 05/08/2021 [facility] Diagnosis Active 05-08 00:00: 00 2021-05-22 08:25:00 [place] I25.10,I50 .22,I48.91 I25.10,I50 .22,I48.91 Active 04/02/2021 [place] Diagnosis Active 04-02 00:00: 00 2021-04-18 07:40:00 [place] 2 MO F/U 2 MO F/U Active 03/22/2021 [facility] Diagnosis Active 03-22 00:00: 00 2021-05-23 10:08:00 [place] NEW PT/DR. ROSITA POLO FT/CHF/UNS PE NEW PT/DR. ROSITA POLO FT/CHF/UNS PE Active 03/04/2021 [facility] Diagnosis Active 2021-0 4-19 00:00: 00 2021-03-22 10:48:00 [place] Morbid obesity with body mass index of 40.0-49.9 Morbid obesity with body mass index of 40.0-49.9 Disease Active 2019-11 00:00: 00 [facility] Class 3 severe obesity due to excess calories with body mass index (BMI) of 40.0 to 44.9 in adult Class 3 severe obesity due to excess calories with body mass index (BMI) of 40.0 to 44.9 in adult Disease Active 2019-11 00:00: 00 [facility] Chest pain Chest pain Disease Active 2019-11 00:00: 00 [facility] Congestive heart failure (disorder) Congestive heart failure (disorder) Resolved Problem 12/29/2021 [facility], Cammy Alcantar [facility], [facility], [place] Problem Resolve d 2021-12-29 23:48:14 [place] ATHSCL HEART DISEASE OF [place] CORONARY ATHSCL HEART DISEASE OF [place] CORONARY Active [facility] Diagnosis Active 2021-07-28 12:53:00 [place] Z95.1 - PRESENCE OF AORTOCORON NAVNEET BYPA Z95.1 - PRESENCE OF AORTOCORON NAVNEET BYPA Active Cammy Alcantar [facility] Diagnosis Active 2021-12-23 13:15:00 [place] Allergies, [...] Active Nausea and/or Vomiting 2019-11 00:00: 00 [facility] METFORMI N DRUG INGREDI Active N/V 2019-11 00:00: 00 [facility] Lisinopr il Propensi ty to adverse reaction s Active Cough 2019-11 00:00: 00 [facility] LISINOPR IL DRUG INGREDI Active COUGH 2019-11 00:00: 00 [facility] NO KNOWN ALLERGIE S Drug Class Active [facility] Lisinopr il Allergy to substanc e Active [facility] Metformi n Allergy to substanc e Active Nausea, Vomiting [facility] Trulicit y Allergy to substanc e Active Nausea, Vomiting [facility] Social History Social Habit Start Date Stop Date Quantity Comments Source Gender identity 2024-02-06 15:56:21 Identifies as male gender (finding) [facility] Exposure to SARS-CoV-2 (event) Not sure [facility] Sexual orientation [facility] History of Social function 2024-03-08 00:00:00 2024-03-08 00:00:00 [facility] Alcoholic beverage intake 2021-12-17 00:00:00 2021-12-17 00:00:00 Ex-drinker (finding) [facility] Alcohol intake 2021-08-08 00:00:00 2021-08-08 00:00:00 Ex-drinker (finding) [facility] Social History 2021-05-23 15:18:29 2021-05-23 15:18:29 [facility] Tobacco use and exposure 2021-05-23 00:00:00 2021-05-23 00:00:00 Smokeless tobacco non-user [facility] Sex Assigned At 1960 00:00:00 1960 [facility] Smoking Status Start Date Stop Date Source Tobacco smoking consumption unknown [facility] Never smoked tobacco [place] [facility] Medications Ordered Medication Name Filled Medication Name Start Date Stop Date Current Medication? Ordering Clinician Indication Dosage Frequency Signature (SIG) Comments Components Source amiodarone (Pacerone) 200 MG tablet amiodarone (Pacerone) 200 MG tablet 2023-11 00:00: 00 04-04 23:59 :00 No 200mg QD Take 1 tablet by mouth 1 time each day. [place] [facility] furosemide (Lasix) 40 MG tablet furosemide (Lasix) 40 MG tablet 2023-11 00:00: 00 04-04 23:59 :00 No 40mg QD Take 1 tablet by mouth 1 time each day. Halishyla pearl Max Epic metoprolol succinate XL (Toprol-XL) 50 [...] tablets by mouth 1 time each day. Halishyla pearl Max Epic amiodarone (Pacerone) 200 MG tablet amiodarone (Pacerone) 200 MG tablet 5- 00:00: 00 10-06 00:00 :00 No = 1 tab, PO, Daily, # 90 tab, 3 Refill(s), Pharmacy: [facility], 193.04, cm, 03/08/24 16:57:00 CDT, Height, 131.227, kg, 03/08/24 16:57:00 CDT, Weight Halishyla Santana Epic losartan (Cozaar) 25 MG tablet losartan (Cozaar) 25 MG tablet - 00:00: 00 Yes 25mg 25 mg. Halishyla pearl Max Epic amiodarone (Pacerone) 200 MG tablet amiodarone (Pacerone) 200 MG tablet 2-08 00:00: 00 Yes = 1 tab, PO, Daily, # 90 tab, 0 Refill(s), Pharmacy: [facility], 193.04, cm, 09/01/23 9:58:00 CDT, Height, 135.318, kg, 09/01/23 9:58:00 CDT, Weight Halishyla pearl Max Epic losartan (Cozaar) 25 MG tablet losartan (Cozaar) 25 MG tablet 2022-11 2-14 00:00: 00 10-06 00:00 :00 No = 0.5 tab, PO, Daily, # 45 tab, 2 Refill(s), Pharmacy: [facility], 193.04, cm, 09/01/23 9:58:00 CDT, Height, 135.318, kg, 09/01/23 9:58:00 CDT, Weight Memoria l Max Epic evolocumab (Repatha SureClick) 140 MG/ML injection evolocumab (Repatha SureClick) 140 MG/ML injection 2022-11 0 00:00: 00 Yes 140mg 140 mg = 1 mL, SUB-Q, Q14D, # 6 mL, 3 Refill(s), Pharmacy: [facility], 193.04, cm, 09/01/23 9:58:00 CDT, Height, 135.318, kg, 09/01/23 9:58:00 CDT, Weight Memoria l Max Epic metoprolol succinate XL (Toprol-XL) 50 MG 24 hr tablet metoprolol succinate XL (Toprol-XL) 50 MG 24 hr tablet 08-07 00:00: 00 10-06 00:00 :00 No = 1 tab, PO, Daily, # 90 tab, 2 Refill(s), Pharmacy: [facility], 193.04, cm, 03/02/23 17:38:00 CDT, Height, 135.455, kg, 03/02/23 17:38:00 CDT, Weight Memoria pearl Santana Epic furosemide (Lasix) 40 MG tablet furosemide (Lasix) 40 MG tablet -12 00:00: 00 10-06 00:00 :00 No = 1 tab, PO, Daily, # 180 tab, 2 Refill(s), Pharmacy: [facility], 193.04, cm, 08/26/22 15:09:00 CDT, Height, 141.591, kg, 08/26/22 15:09:00 CDT, Weight Memoria l Max Epic 24 HR Metoprolol Tartrate 100 MG Extended Release Tablet [Toprol] 2021-0 12-27 17:36: 00 Yes 100 mg = 1 tab, PO, Daily, # 90 tab, 3 Refill(s), Pharmacy: [facility], 193.04, cm, 08/29/21 17:30:00 CDT, Height, 157.727, kg, 08/29/21 17:30:00 CDT, Weight [place] atorvastati n 20 MG Oral Tablet [Lipitor] 12-27 17:36: 00 Yes 20 mg = 1 tab, PO, Bedtime, # 90 tab, 3 Refill(s), Pharmacy: [facility], 193.04, cm, 08/29/21 17:30:00 CDT, Height, 157.727, kg, 08/29/21 17:30:00 CDT, Weight Memshyla Santana losartan 25 mg oral tablet 12-27 17:34: 00 Yes 25 mg = 1 tab, PO, Daily, # 90 tab, 3 Refill(s), Pharmacy: [facility], 193.04, cm, 08/29/21 17:30:00 CDT, Height, 157.727, kg, 08/29/21 17:30:00 CDT, Weight Memshyla Santana AMIODarone 200 mg oral tablet 12-27 17:30: 00 Yes 200 mg = 1 tab, PO, Daily, # 90 tab, 3 Refill(s), Pharmacy: [facility], 193.04, cm, 08/29/21 17:30:00 CDT, Height, 157.727, kg, 08/29/21 17:30:00 CDT, Weight [place] apixaban 5 MG Oral Tablet [Eliquis] 12-27 17:30: 00 Yes 5 mg = 1 tab, PO, Q12H, # 180 tab, 3 Refill(s), Pharmacy: [facility], 193.04, cm, 08/29/21 17:30:00 CDT, Height, 157.727, kg, 08/29/21 17:30:00 CDT, Weight Memshyla Santana Furosemide 40 MG Oral Tablet 12-27 17:30: 00 Yes 40 mg = 1 tab, PO, BID Diuretic, # 180 tab, 3 Refill(s), Pharmacy: [facility], 193.04, cm, 08/29/21 17:30:00 CDT, Height, 157.727, kg, 08/29/21 17:30:00 CDT, Weight [place] apixaban 5 MG Oral Tablet [Eliquis] 12-27 16:37: 00 No 5 mg, PO, Q12H, tab, 0 Refill(s), For Atrial Fibrilatio n [place] Henryann 3 ML Insulin, Aspart, Human 100 UNT/ML Pen Injector [NovoLog] 12-27 16:36: 00 Yes 2 unit, 0 Refill(s) [place]ann 3 ML Insulin Glargine 100 UNT/ML Pen Injector [Basaglar] 12-27 16:36: 00 Yes 40 unit, SUB-Q, Bedtime, # 12 mL, 3 Refill(s) Tex kang Max insulin aspart (NovoLOG FLEXPEN) 100 UNIT/ML pen insulin aspart (NovoLOG FLEXPEN) 100 UNIT/ML pen 12-27 00:00: 00 Yes 2 unit, 0 Refill(s) [place] Henryann Epic insulin glargine (Basaglar KwikPen) 100 UNIT/ML pen insulin glargine (Basaglar KwikPen) 100 UNIT/ML pen 12-27 00:00: 00 Yes 20 unit, SUB-Q, Bedtime, # 12 mL, 3 Refill(s) [place] Epic apixaban (Eliquis) 5 MG tablet 12-17 11:31: 02 Yes 5mg Q.5D Take 5 mg by mouth 2 (two) times a day. [facility] empaglifloz in (Jardiance) 25 MG 12-17 11:31: 02 Yes 1{tbl} QD Take 1 tablet by mouth 1 (one) time each day. [facility] levothyroxi ne (Synthroid, Levoxyl) 50 MCG tablet 12-17 11:31: 02 Yes 50ug Take 50 mcg by mouth 1 (one) time each day before breakfast. [facility] losartan 25 mg oral tablet 2020-11 20:40: 00 Yes 25 mg = 1 tab, PO, Daily, # 90 tab, 1 Refill(s), Pharmacy: [facility], 193.04, cm, 07/25/21 3:56:00 CDT, Height, 161.534, kg, 07/23/21 9:12:00 CDT, Weight Halioria pearl Max Furosemide 40 MG Oral Tablet 2020-11 20:38: 00 Yes 40 mg = 1 tab, PO, BID Diuretic, # 180 tab, 3 Refill(s), Pharmacy: [facility], 193.04, cm, 07/25/21 3:56:00 CDT, Height, 161.534, kg, 07/23/21 9:12:00 CDT, Weight [place] pearl Santana AMIODarone 200 mg oral tablet 2020-11 20:38: 00 Yes 400 mg = 2 tab, PO, BID, # 360 tab, 3 Refill(s), Pharmacy: [facility], 193.04, cm, 07/25/21 3:56:00 CDT, Height, 161.534, kg, 07/23/21 9:12:00 CDT, Weight Memoria pearl Max clopidogrel 75 mg oral tablet 2020-11 20:37: 00 Yes 75 mg = 1 tab, PO, Daily, # 90 tab, 3 Refill(s), Pharmacy: [facility], 193.04, cm, 07/25/21 3:56:00 CDT, Height, 161.534, kg, 07/23/21 9:12:00 CDT, Weight [place] kang Max levothyroxi ne (Synthroid, Levoxyl) 50 MCG tablet 08-08 09:14: 13 Yes 50ug Take 50 mcg by mouth 1 (one) time each day before breakfast. [facility] No known medications 08-08 09:14: 13 No No known medication s [facility] apixaban (Eliquis) 5 MG tablet 08-08 09:10: 00 Yes 5mg Q.5D Take 5 mg by mouth 2 (two) times a day. [facility] empaglifloz in (Jardiance) 25 MG 08-08 09:10: 00 Yes 1{tbl} QD Take 1 tablet by mouth 1 (one) time each day. [facility] Jardiance 07-30 14:00: 00 No Notes: (Same as: Jardiance) [place] Lipitor 07-30 02:00: 00 No Notes: (Same as: Lipitor) Halishyla pearl [place] potassium chloride 20 mEq oral tablet, extended [...] s with feeding tube less than 14 Czech (Dobhoff, J-tube etc) and pediatric and patients. [place] Furosemide 07-29 21:00: 00 No Notes: (Same as: Lasix) May cause GI upset. Give with food or milk. [place] tramadol hydrochlori de 50 MG Oral Tablet 07-29 17:22: 00 Yes 50 mg = 1 tab, PO, Q6H, # 10 tab, 0 Refill(s), Pharmacy: [facility], 193.04, cm, 07/25/21 3:56:00 CDT, Height, 161.534, kg, 07/23/21 9:12:00 CDT, Weight [place] levothyroxi ne 50 mcg (0.05 mg) oral tablet 07-29 15:04: 00 Yes 50 microgram = 1 tab, PO, Q630AM, # 30 tab, 0 Refill(s), Pharmacy: [facility], 193.04, cm, 07/25/21 3:56:00 CDT, Height, 161.534, kg, 07/23/21 9:12:00 CDT, Weight [place] sacubitril 24 MG / valsartan 26 MG Oral Tablet [Entresto] 07-29 15:04: 00 Yes 1 tab, PO, Q12H, # 60 tab, 0 Refill(s), Pharmacy: [facility], 193.04, cm, 07/25/21 3:56:00 CDT, Height, 161.534, kg, 07/23/21 9:12:00 CDT, Weight Memoria pearl Santana tamsulosin 0.4 mg oral capsule 07-29 15:04: 00 Yes 0.4 mg = 1 cap, PO, After Breakfast, # 30 cap, 0 Refill(s), Pharmacy: [facility], 193.04, cm, 07/25/21 3:56:00 CDT, Height, 161.534, kg, 07/23/21 9:12:00 CDT, Weight Memoria pearl Santana Furosemide 40 MG Oral Tablet 07-29 15:03: 00 Yes 40 mg = 1 tab, PO, BID Diuretic, # 60 tab, 0 Refill(s), Pharmacy: [facility], 193.04, cm, 07/25/21 3:56:00 CDT, Height, 161.534, kg, 07/23/21 9:12:00 CDT, Weight Memoria l Max carvedilol 6.25 mg oral tablet 07-29 15:03: 00 Yes 6.25 mg = 1 tab, PO, Q12H, # 60 tab, 0 Refill(s), Pharmacy: [facility], 193.04, cm, 07/25/21 3:56:00 CDT, Height, 161.534, kg, 07/23/21 9:12:00 CDT, Weight Memoria pearl Santana clopidogrel 75 mg oral tablet 07-29 15:03: 00 Yes 75 mg = 1 tab, PO, Daily, # 60 tab, 0 Refill(s), Pharmacy: [facility], 193.04, cm, 07/25/21 3:56:00 CDT, Height, 161.534, kg, 07/23/21 9:12:00 CDT, Weight Memoria l Max ferrous sulfate 325 MG Oral Tablet 07-29 15:03: 00 Yes 325 mg = 1 tab, PO, Daily, # 30 tab, 0 Refill(s), Pharmacy: [facility], 193.04, cm, 07/25/21 3:56:00 CDT, Height, 161.534, kg, 07/23/21 9:12:00 CDT, Weight [place] apixaban 5 mg oral tablet 07-29 15:02: 00 Yes 5 mg = 1 tab, PO, Q12H, For Atrial Fibrillati on, # 60 tab, 0 Refill(s), Pharmacy: [facility], 193.04, cm, 07/25/21 3:56:00 CDT, Height, 161.534, kg, 07/23/21 9:12:00 CDT, Weight [place] AMIODarone 200 mg oral tablet 07-29 15:01: 00 Yes 400 mg = 2 tab, PO, BID, # 90 tab, 0 Refill(s), Pharmacy: [facility], 193.04, cm, 07/25/21 3:56:00 CDT, Height, 161.534, kg, 07/23/21 9:12:00 CDT, Weight [place] Plavix 07-29 14:00: 00 No Notes: (Same As: Plavix) [place] ferrous sulfate 07-29 14:00: 00 No Notes: Give with food. iron elemental [id number] as ferrous sulfate Dose=___mg elemental iron Tex [...] s with feeding tube less than 14 Czech (Dobhoff, J-tube etc) and pediatric and patients. [place] Lasix 07-29 02:00: 00 No Notes: (Same as: Lasix) [place] pearl [place] carvedilol (Coreg) 6.25 MG tablet 07-29 00:00: 00 Yes 1{tbl} Q12H Take 1 tablet by mouth every 12 (twelve) hours. [facility] clopidogrel (Plavix) 75 MG tablet 07-29 00:00: 00 Yes 1{tbl} QD Take 1 tablet by mouth 1 (one) time each day. [facility] tamsulosin (Flomax) 0.4 MG 24 hr capsule 07-29 00:00: 00 Yes 1{capsu le} QD Take 1 capsule by mouth 1 (one) time each day. [facility] traMADol (Ultram) 50 MG tablet 07-29 00:00: 00 Yes 1{tbl} Q6H Take 1 tablet by mouth every 6 (six) hours. [facility] Lasix 07-28 21:00: 00 No Notes: [...] s with feeding tube less than 14 Czech (Dobhoff, J-tube etc) and pediatric and patients. [...] Notes: Give with food. (Same As: Coreg) Halishyla pearl Santana sacubitril 24 MG / valsartan 26 MG Oral Tablet [Entresto] 07-27 02:00: 00 No Notes: (Same as: Entresto) Avoid in patients with history of angioedema due to MIKE inhibitor or ARB therapy. Do not use concomitan tly or within 36 hours of MIKE inhibitors [place] Santana BD Normal Saline Flush 07-26 21:52: 00 No Notes: (Same as: BD Posiflush) [place] Sodium Chloride 0.9% IV 07-26 21:52: 00 No 250 mL, Route: IVPB, Start date: 07/26/21 16:52:00 CDT, Duration: 30 day, Stop date: 08/25/21 16:51:00 CDT, PRN Line Flush, 0 [place] heparin sodium, porcine 2500 UNT/ML Injectable Solution 07-26 21:00: 00 No Notes: porcine heparin [place] Losartan 07-26 20:27: 00 No 25 mg, Route: PO, Daily, Dosing Weight 161.534, kg, Priority: NOW, Start date: 07/26/21 15:27:00 CDT, Duration: 30 day, Stop date: 08/25/21 9:00:00 CDT [place] Lasix 07-26 18:49: 00 No Notes: (Same as: Lasix) [place] Insulin Lispro 07-26 16:30: 00 No [...] date: 07/25/21 10:48:00 CDT [place] Ipratropium Roper 0.2 MG/ML Inhalant Solution 07-25 15:06: 00 [...] 07-25 14:00: 00 No Notes: porcine heparin Halishyla pearl Max docusate sodium 07-25 14:00: 00 No Notes: (Same as: Colace) (Do Not Crush) Tex pearl Santana Miralax 07-25 14:00: 00 No Notes: Dissolve in 8 oz of water or juice. (Same as: Miralax) [place] sennosides, JAIL 8.6 MG Oral Tablet 07-25 14:00: 00 [...] (Same as: Transderm- Scop) [place] Vasopressin (JAIL) 07-25 02:46: 00 No Notes: (Same As: [...] No Notes: Use the following cdm for [id number]. Tex Santana vecuronium (ANES) 07-24 20:20: 00 [...] Notes: (Same as: Mag-Ox 400) Magnesium oxide 384vf=508e g elemental magnesium Dose=____m g magnesium oxide [...] microgram Product Wasted: ___ microgram Tex Santana cefepime (ANES) 07-24 19:17: 00 No Route: [...] CDT, Stop date: 07/24/21 14:13:00 CDT Memshyla kang Max sodium chloride (ANES) 48 mL + dexmedetomi dine (ANES) 200 microgram 07-24 18:01: 00 No Route: IV, Drug form: INJ, Start date: 07/24/21 13:01:00 CDT, Stop date: 07/24/21 14:01:00 CDT Memshyla Santana irrigation solution (ANES) 1000 mL 07-24 17:16: [...] Stop date: 07/24/21 10:35:00 CDT Memshyla Santana succinylcho line (ANES) 07-24 15:35: 00 No Route: IV, Drug form: INJ, ONCE, Stop date: 07/24/21 10:35:00 CDT Memshyla Santana midazolam (ANES) 07-24 15:02: 00 No Route: IV, Drug form: SOLN, ONCE, Stop date: 07/24/21 10:02:00 CDT Memshyla Santana fentaNYL (ANES) 07-24 15:02: 00 No Route: IV, Drug form: INJ, ONCE, Stop date: 07/24/21 10:02:00 CDT Memshyla pearl Max vecuronium (ANES) 07-24 15:02: 00 No Route: IV, Drug form: INJ, ONCE, Stop date: 07/24/21 10:02:00 CDT Tex Santana AMIODarone (ANES) 900 mg 07-24 14:08: 00 No Route: IV, Drug form: INJ, Start date: 07/24/21 9:08:00 CDT, Stop date: 07/24/21 10:08:00 CDT Memshyla pearl aMx milrinone (ANES) 0.2 mg 07-24 13:54: 00 No Route: IV, Drug form: INJ, Start date: 07/24/21 8:54:00 CDT, Stop date: 07/24/21 9:54:00 CDT Tex Santana Insulin regular (ANES) 1 unit 07-24 13:47: 00 No Route: IV, Drug form: INJ, Start date: 07/24/21 8:47:00 CDT, Stop date: 07/24/21 9:47:00 CDT Memshyla Santana Amicar (ANES) 5000 mg + sodium chloride (ANES) 105 mL 07-24 13:26: 00 No Route: IV, Drug form: INJ, Dosing Weight 161.5, kg, Start date: 07/24/21 8:26:00 CDT, Stop date: 07/24/21 9:26:00 CDT Memshyla Santana AMIODarone 900 mg + Dextrose 5% in Water IV 482 mL 07-24 12:49: 00 No 2 mg/ml. Use Glass Bottle or Non PVC Bag "Use 0.22 micron in-line filter" MEDICATION WASTE Product Size: 900 mg Product Wasted: ___ mg Tex Santana Bupivacaine 07-24 12:39: 00 No Notes: (Same as: Exparel) NOT FOR IV use Postoperat hannha analgesia: Infiltrati on (local): Dose is based [...] Yes 40 unit, SUB-Q, Daily, 0 Refill(s) Halishyla pearl Max semaglutide (Ozempic, 0.25 or 0.5 MG/DOSE,) 2 MG/1.5ML solution pen-injecto r semaglutide (Ozempic, 0.25 or 0.5 MG/DOSE,) 2 MG/1.5ML solution pen-injecto r 07-19 00:00: 00 Yes .5mg 0.5 mg =, SUB-Q, qWeek, 0 Refill(s) Halishyla pearl Max Epic empaglifloz in (Jardiance) 25 MG empaglifloz in (Jardiance) 25 MG 07-19 00:00: 00 Yes 25mg 25 mg = 1 tab, PO, QAM, 0 Refill(s) Tex Santana Epic empaglifloz in (Jardiance) 25 MG 07-16 14:23: 03 Yes 1{tbl} QD Take 1 tablet by mouth 1 (one) time each day. [facility] apixaban (Eliquis) 5 MG tablet 07-16 14:21: 39 Yes 5mg Q.5D Take 5 mg by mouth 2 (two) times a day. [facility] Insulin Regular Human (RELION R IJ) 07-16 14:21: 11 07-16 00:00 :00 No 20U Q.5D Inject 20 Units as directed 2 (two) times a day. [facility] empaglifloz in (Jardiance) 25 MG 07-16 09:23: 03 Yes 1{tbl} QD Take 1 tablet by mouth 1 (one) time each day. [facility] apixaban (Eliquis) 5 MG tablet 07-16 09:21: 39 Yes 5mg Q.5D Take 5 mg by mouth 2 (two) times a day. [facility] Ozempic, 0.25 or 0.5 MG/DOSE, 2 MG/1.5ML solution pen-injecto r 07-09 00:00: 00 Yes .5mg Inject 0.5 mg under the skin 1 (one) time per week. [facility] semaglutide (Ozempic, 0.25 or 0.5 MG/DOSE,) 2 MG/1.5ML solution pen-injecto r 06-18 00:00: 00 Yes .5mg 0.5 mg. [facility] insulin degludec (Tresiba FlexTouch) 200 UNIT/ML injection 06-18 00:00: 00 Yes 38U QD Inject 38 Units under the skin 1 (one) time each day. [facility] apixaban (Eliquis) 5 MG tablet 06-11 14:25: 25 Yes 5mg Q.5D Take 5 mg by mouth 2 (two) times a day. [facility] Insulin Regular Human (RELION R IJ) 06-11 14:25: 25 Yes 20U Q.5D Inject 20 Units as directed 2 (two) times a day. [facility] insulin NPH-insulin regular (NovoLIN) (70-30) 100 UNIT/ML injection 06-11 14:25: 25 Yes Inject under the skin 2 (two) times a day before meals. [facility] Insulin NPH Isophane & Regular (NOVOLIN 70/30 SC) 06-11 14:21: 45 06-11 00:00 :00 No Inject under the skin. [facility] insulin NPH-insulin regular (NovoLIN) (70-30) 100 UNIT/ML injection 06-11 09:25: 25 Yes Inject under the skin 2 (two) times a day before meals. [facility] Sodium Chloride 0.9% IV 750 mL 06-05 17:42: 00 No 750 mL, Rate: 75 ml/hr, Infuse over: 10 hr, Route: IV, Dosing Weight 166.273 kg, Total Volume: 750, Start date: 06/05/21 12:42:00 CDT, Duration: 10 hr, Stop date: 06/05/21 22:41:00 CDT, BSA: 3.02 m2, 0 Memoria l Max NovoLIN 70/30 06-05 15:45: 00 Yes 50 unit, SUB-Q, BID, 0 Refill(s) Tex Santana Rhiannon 06-05 15:44: 00 No See Instructio ns, PO, 0 Refill(s) Tex Santana insulin NPH-insulin regular (NovoLIN) (70-30) 100 UNIT/ML injection 06-04 18:30: 53 Yes Inject under the skin 2 (two) times a day before meals. [facility] Insulin NPH Isophane & Regular (NOVOLIN 70/30 SC) 06-04 18:30: 53 Yes Inject under the skin. [facility] apixaban (Eliquis) 5 MG tablet 06-04 18:29: 13 Yes 5mg Q.5D Take 5 mg by mouth 2 (two) times a day. [facility] apixaban (Eliquis) 5 MG tablet 05-23 16:36: 01 Yes 5mg Q.5D Take 5 mg by mouth 2 (two) times a day. [facility] furosemide (Lasix) 40 MG tablet 04-28 00:00: 00 Yes 1{tbl} Q.5D Take 1 tablet by mouth 2 (two) times a day. [facility] atorvastati n (Lipitor) 40 MG tablet 04-28 00:00: 00 Yes 40mg Take 40 mg by mouth every night. [facility] losartan (Cozaar) 25 MG tablet 04-28 00:00: 00 Yes .5{tbl} QD Take 0.5 tablets by mouth 1 (one) time each day. [facility] furosemide (Lasix) 80 MG tablet 04-28 00:00: 00 Yes 1{tbl} Q.5D Take 1 tablet by mouth 2 (two) times a day. [facility] Saline Flush 0.9% 04-18 14:00: 00 No Notes: (Same as: BD Posiflush) Tex Henryann Saline Flush 0.9% 04-18 12:50: 00 No Notes: (Same as: BD Posiflush) Tex Santana AMIODarone 200 mg oral tablet 03-22 17:58: 00 Yes 200 mg = 1 tab, PO, Daily, # 90 tab, 1 Refill(s), Pharmacy: [id number], 185.42, cm, 03/22/21 11:01:00 CDT, [...] by mouth 1 (one) time each day. [facility] atorvastati n 40 mg tablet 12-13 00:00: 00 Yes [id number] 40mg Take 1 tablet by mouth at bedtime. [facility] digoxin 125 mcg (0.125 mg) tablet 12-13 00:00: 00 Yes [id number] 125ug Take 1 tablet by mouth daily. [facility] furosemide 80 mg tablet 12-13 00:00: 00 Yes [id number] 80mg Take 1 tablet by mouth every morning and evening. [facility] losartan 25 mg tablet 12-13 00:00: 00 Yes [id number] 12.5mg Take 0.5 tablets by mouth daily. [facility] aspirin 81 MG chewable tablet 12-13 00:00: 00 Yes 81mg QD Chew 81 mg 1 (one) time each day. [facility] digoxin 125 mcg (0.125 mg) tablet 2019-11 00:00: 00 12-13 00:00 :00 No [id number] 125ug Take 1 tablet by mouth daily. [facility] insulin NPH and regular human 70-30 (HUMULIN 70-30 U-100 INSULIN) 100 unit/mL (70-30) injection 40 Units 2019-11 02:00: 00 Yes 40U 40 Units, Subcutaneo us, BID, First dose (after last modificati on) on Thu10/03/20 at 2000, Until Discontinu ed, Routine [facility] digoxin 125 mcg tablet 2019-11 00:00: 00 12-13 00:00 :00 No [id number] .125mg Take 1 tablet by mouth daily. [facility] losartan 25 mg tablet 2019-11 00:00: 00 12-13 00:00 :00 No [id number] 12.5mg Take 0.5 tablets by mouth daily. [facility] Sliding Scale Insulin - Lispro (HumaLOG) + Fsbg Testing 2019-11 20:00: 00 Yes Subcutanemandy beck, TIDAC, First dose (after last modificati on) on Thu10/03/20 at 1400, Until Discontinu ed, Routine [facility] insulin lispro (human) (HumaLOG U-100) injection 5 Units 2019-11 18:45: 00 10-03 17:45 :00 No 5U 5 Units, Subcutaneo us, ONCE, 1 dose, Thu10/03/20 at 1245, Routine [facility] KCL (KLOR-CON M20) tablet 20 mEq 2019-11 18:15: 00 10-03 17:47 :00 No 20meq 20 mEq, Oral, ONCE, 1 dose, Thu10/03/20 at 1215, Routine [facility] KCL (KLOR-CON M20) tablet 20 mEq 2019-11 15:00: 00 Yes 20meq 20 mEq, Oral, DAILY, First dose on Thu10/03/20 at 0900, Until Discontinu ed, Routine [facility] potassium chloride 20 mEq/100 mL (KCL) 20 mEq/100 mL 20 mEq piggyback 2019-11 13:30: 00 10-03 13:40 :00 No 20meq 20 mEq, IV Piggyback, ONCE, 1 dose, Thu10/03/20 at 0730 [facility] apixaban 5 mg tablet 2019-11 00:00: 00 Yes [id number] 5mg Take 1 tablet by mouth 2 (two) times daily. Indication s: prevention of thromboemb olism in paroxysmal atrial fibrillati on [facility] nitroglycer in 0.4 mg sublingual tablet 2019-11 00:00: [id number] 1 tablet under the tongue every 5 (five) minutes as needed for Chest pain. [facility] aspirin 81 mg chewable tablet 2019-11 00:00: 00 12-13 00:00 :00 No [id number] 81mg Take 1 tablet by mouth daily. [facility] atorvastati n 40 mg tablet 2019-11 00:00: 00 12-13 00:00 :00 No [id number] 40mg Take 1 tablet by mouth at bedtime. [facility] furosemide 40 mg tablet 2019-11 00:00: 00 12-13 00:00 :00 No [id number] 80mg Take 2 tablets by mouth every morning and evening. [facility] metoprolol succinate XL 50 mg 24 hr tablet 2019-11 00:00: 00 10-10 00:00 :00 No [id number] 75mg Take 1.5 tablets by mouth 2 (two) times daily. [facility] furosemide 80 mg tablet 2019-11 00:00: 00 10-03 00:00 :00 No [id number] 80mg Take 1 tablet by mouth every morning and evening for 90 days. [facility] metoprolol succinate XL 25 mg 24 hr tablet 2019-11 00:00: 10-03 00:00 :00 No [id number] 75mg Take 3 tablets by mouth 2 (two) times daily for 90 days. [facility] Sliding Scale Insulin - Lispro (HumaLOG) + Fsbg Testing 2019-11 20:00: 00 10-03 19:16 :39 No Subcutaneo us, TID, First dose (after last modificati on) on Thu10/02/20 at 1400, Until Discontinu ed, Routine [facility] insulin NPH and regular human 70-30 (HUMULIN 70-30 U-100 INSULIN) 100 unit/mL (70-30) injection 40 Units 2019-11 15:30: 00 10-03 19:16 :39 No 40U 40 Units, Subcutaneo us, QAM+PM, First dose (after last modificati on) on Thu10/02/20 at 0930, Until Discontinu ed, [facility] 80 mg 2019-11 15:00: 00 Yes 80mg 80 mg, Oral, QAM+PM, First dose on Thu10/02/20 at 0900, Until Discontinu ed, Routine [facility] f[facility] ([facility]IX) injection 80 mg 2019-11 20:00: 00 10-02 14:59 :44 No 80mg 80 mg, IV Push, TID, First dose (after last modificati on) on Thu10/01/20 at 1400, Until Discontinu ed, ANTON [facility] tc 99m-tetrofo smin (MYOVIEW) injection 35 millicurie 2019-11 19:15: 00 10-01 19:05 :00 No 35mCi 35 millicurie , Intravenou s, ONCE, 1 dose, Thu10/01/20 at 1315, Routine [facility] insulin NPH and regular human 70-30 (HUMULIN 70-30 U-100 INSULIN) 100 unit/mL (70-30) injection 40 Units 2019-11 15:00: 00 10-02 15:21 :14 No 40U 40 Units, Subcutaneo us, QAM+PM, First dose on Thu10/01/20 at 0900, Until Discontinu ed, Routine [facility] KCL (KLOR-CON M20) tablet 20 mEq 2019-11 14:15: 00 10-01 13:43 :00 No 20meq 20 mEq, Oral, ONCE, 1 dose, Thu10/01/20 at 0815, Routine [facility] magnesium sulfate in water 2 gram/50 mL (4 %) infusion 2 g 2019-11 14:00: 00 10-01 13:42 :00 No 2g 2 g, IV Piggyback, ONCE, 1 dose, Thu10/01/20 at 0800, Routine [facility] metoprolol succinate XL (TOPROL XL) tablet 75 mg 2019-11 02:00: 00 Yes 75mg 75 mg, Oral, BID, First dose (after last modificati on) on Thu09/30/20 at 2000, Until Discontinu ed, Routine [facility] sulfur hexafluorid e microsphr (LUMASON) injection 5 mL 2019-11 18:30: 00 09-30 16:00 :00 No 5mL 5 mL, Intravenou s, ONCE, 1 dose, [place] 09/30/20 at 1230, Routine
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 : SHANITA EH, TARNOE [facility] digoxin (LANOXIN) tablet 125 mcg 2019-11 15:45: 00 Yes 125ug 125 mcg, Oral, DAILY, First dose on [place] 09/30/20 at 0945, Until Discontinu ed, Routine [facility] metoprolol succinate XL (TOPROL XL) tablet 25 mg 2019-11 15:28: 00 09-30 15:46 :00 No 25mg 25 mg, Oral, ONCE, 1 dose, [place] 09/30/20 at 0930, Routine [facility] Polyethylen e Glycol 3350 (MIRALAX) powder 17 g 2019-11 14:15: 00 10-02 20:22 :36 No 17g 17 g, Oral, BID, First dose on [place] 09/30/20 at 0815, Until Discontinu ed, Routine [facility] insulin glargine (LANTUS U-100) injection 16 Units 2019-11 03:00: 00 10-01 14:16 :00 No 16U 16 Units, Subcutaneo us, [facility], First dose on [facility] 09/29/20 at 2100, Until Discontinu ed, Routine [facility] apixaban (ELIQUIS) tablet 5 mg 2019-11 02:00: 00 Yes 5mg 5 mg, Oral, BID, First dose on [facility] 09/29/20 at 2000, Until Discontinu ed, Routine [facility] furosemide (LASIX) injection 80 mg 2019-11 02:00: 00 10-01 17:11 :54 No 80mg 80 mg, IV Push, Q12H, First dose (after last modificati on) on 09/29/20 at 2000, Until Discontinu ed, ANTON [facility] metoprolol succinate XL (TOPROL XL) tablet 50 mg 2019-11 02:00: 00 09-30 15:28 :45 No 50mg 50 mg, Oral, BID, First dose (after last modificati on) on 09/29/20 at 1999, Until Discontinu ed, Routine [facility] insulin lispro (human) (HumaLOG U-100) injection 4 Units 2019-11 23:00: 00 10-01 14:16 :00 No 4U 4 Units, Subcutaneo us, TID MEALS, First dose on 09/29/20 at 1700, Until Discontinu ed, Routine [facility] Sliding Scale Insulin - Lispro (HumaLOG) + Fsbg Testing 2019-11 22:30: 00 10-02 14:18 :31 No Subcutaneo us, Q4H, First dose on 09/29/20 at 1630, Until Discontinu ed, Routine [facility] metoprolol succinate XL (TOPROL XL) tablet 12.5 mg 2019-11 17:04: 00 09-29 19:00 :00 No 12.5mg 12.5 mg, Oral, ONCE, 1 dose, 09/29/20 at 1115, Routine [facility] furosemide (LASIX) injection 40 mg 2019-11 15:41: 00 09-29 17:11 :00 No 40mg 40 mg, Slow IV Push, ONCE, 1 dose, 09/29/20 at 0945, Routine [facility] losartan (COZAAR) tablet 12.5 mg 2019-11 15:00: 00 Yes 12.5mg 12.5 mg, Oral, DAILY, First dose on 09/29/20 at 0900, Until Discontinu ed, Routine [facility] Sliding Scale Insulin - Lispro (HumaLOG) + Fsbg Testing 2019-11 14:00: 00 09-29 22:24 :01 No Subcutaneo us, TID MEALS+HS, First dose (after last modificati on) on 09/29/20 at 0800, Until Discontinu ed, Routine [facility] metoprolol succinate XL (TOPROL XL) tablet 37.5 mg 2019-11 14:00: 00 09-29 17:04 :42 No 37.5mg 37.5 mg, Oral, BID, First dose (after last modificati on) on 09/29/20 at 0800, Until Discontinu ed, Routine [facility] heparin STD 25,000 units/250ml in NS 2019-11 [...] Rang e, Dosing and Testing: &nbs p;FOR [place], [facility], AND [facility] ONLY &nbs p; - aPTT < 35: [...] INITIAL BOLUS OR INITIAL INFUSION RATE.
[facility] KCL (KLOR-CON M20) tablet 20 mEq 2019-11 12:00: 00 09-29 11:35 :00 No 20meq 20 mEq, Oral, ONCE, 1 dose, 09/29/20 at 0600, Routine [facility] acetaminoph en (TYLENOL) tablet 325 mg 2019-11 00:30: 33 Yes 325mg 325 mg, Oral, Q6HPRN, Starting 09/28/20 at 1830, Until Discontinu ed, Routine, headache [facility] heparin 1,000 unit/mL injection 2019-11 18:32: 00 09-28 18:32 :00 No Slow IV Push, TITRATE - FOR PROCEDURE USE, 1 dose, Starting Thu09/28/20 at 1232, Until Thu09/28/20 at 1232, Routine [facility] nitroglycer in (TRIDIL) 2 mg in 10 mL D5W for Cardiac Cath 2019-11 18:32: 00 09-28 18:32 :00 No Intravenou s, TITRATE - FOR PROCEDURE USE, 1 dose, Starting Thu09/28/20 at 1232, Until Thu09/28/20 at 1232, Routine [facility] midazolam (VERSED) injection 2019-11 18:31: 00 09-28 18:31 :00 No IV Push, TITRATE - FOR PROCEDURE USE, 1 dose, Starting Thu09/28/20 at 1231, Until Thu09/28/20 at 1231, Routine [facility] FENTanyl PF (SUBLIMAZE (PF)) injection 2019-11 18:28: 20 09-28 18:28 :20 No Slow IV Push, TITRATE - FOR PROCEDURE USE, 1 dose, Starting Thu09/28/20 at 1228, Until Thu09/28/20 at 1228, Routine [facility] lidocaine 1% (PF) (XYLOCAINE) injection 2019-11 18:14: 00 09-28 18:14 :00 No Infiltrati on, TITRATE - FOR PROCEDURE USE, 1 dose, Starting Thu09/28/20 at 1214, Until Thu09/28/20 at 1214, Routine [facility] FENTanyl PF (SUBLIMAZE (PF)) injection 2019-11 18:00: 00 09-28 18:00 :00 No Slow IV Push, TITRATE - FOR PROCEDURE USE, 1 dose, Starting Thu09/28/20 at 1200, Until Thu09/28/20 at 1200, Routine [facility] midazolam (VERSED) injection 2019-11 18:00: 00 09-28 18:00 :00 No IV Push, TITRATE - FOR PROCEDURE USE, 1 dose, Starting Thu09/28/20 at 1200, Until Thu09/28/20 at 1200, Routine [facility] metoprolol succinate XL (TOPROL XL) tablet 25 mg 2019-11 15:15: 00 09-29 13:32 :40 No 25mg 25 mg, Oral, BID, First dose on Thu09/28/20 at 0915, Until Discontinu ed, [facility] 81 mg 2019-11 15:00: 00 Yes 81mg 81 mg, Oral, DAILY, First dose on Thu09/28/20 at 0900, Until Discontinu ed, Routine [facility] pantoprazol e (PROTONIX) EC tablet 40 mg 2019-11 15:00: 00 Yes 40mg 40 mg, Oral, DAILY, First dose on Thu09/28/20 at 0900, Until Discontinu ed, Routine [facility] atorvast[facility] n (LIPITOR) tablet 40 mg 2019-11 08:15: 00 Yes 40mg 40 mg, Oral, QHS, First dose on Thu09/28/20 at 0215, Until Discontinu ed, Routine [facility] nitroglycer in (NITROSTAT) sublingual tablet 0.4 mg 2019-11 08:02: 39 Yes .4mg 0.4 mg, Sublingual , Q5MIN PRN, Starting Thu09/28/20 at 0202, Until Discontinu ed, Routine, Chest pain [facility] furosemide (LASIX) injection 40 mg 2019-11 08:00: 00 09-29 15:41 :59 No 40mg 40 mg, IV Push, Q12H, First dose (after last reorder) on Thu09/28/20 at 0200, Until Discontinu ed, ANTON [facility] Sliding Scale Insulin - Lispro (HumaLOG) + Fsbg Testing 2019-11 06:00: 00 09-29 13:30 :59 No Subcutaneo us, Q6H ABX, First dose on Thu09/28/20 at 0000, Until Discontinu ed, Routine [facility] metoprolol tartrate (LOPRESSOR) tablet 25 mg 2019-11 05:00: 00 09-28 15:12 :41 No 25mg 25 mg, Oral, BID, First dose on [place] 09/27/20 at 2300, Until Discontinu ed, Routine [facility] heparin STD 25,000 units/250ml in NS 2019-11 [...] Rang e, Dosing and Testing: &nbs p;FOR [place], AND [facility] ONLY &nbs p; - aPTT < 35: [...] INITIAL BOLUS OR INITIAL INFUSION RATE.
[facility] aspirin tablet 325 mg 2019-11 04:15: 00 09-28 03:38 :00 No 325mg 325 mg, Oral, ONCE, 1 dose, [place] 09/27/20 at 2215, Routine [facility] iohexol (OMNIPAQUE 350 BULK-100 mL) injection 100 mL 2019-11 21:45: 00 09-27 21:45 :00 No 100mL 100 mL, Intravenou s, ONCE, 1 dose, [place] 09/27/20 at 1545, Routine [facility] furosemide (LASIX) injection 40 mg 2019-11 21:45: 00 09-27 21:04 :00 No 40mg 40 mg, IV Push, ONCE, 1 dose, [place] 09/27/20 at 1545, ANTON [facility] heparin 25,000 Units/250 mL (Premixed Bag) in [...] Rang e, Dosing and Testing: &nbs p;FOR [place], AND [facility] ONLY &nbs p; - aPTT < 35: [...] INITIAL BOLUS OR INITIAL INFUSION RATE.
[facility] heparin 1000 unit/mL injection Soln 4,000 Units 2019-11 20:45: 00 09-27 20:45 :00 No 4000U 4,000 Units, IV Push, ONCE, 1 dose, [place] 09/27/20 at 1445, Routine [facility] aspirin 81 mg capsule Take 1 capsule [...] route in the morning for 30 days. [facility] spironolact one 25 [...] x 5/32" USE DIRECTED 4 TIMES DAILY [facility] BD Ultra-Fine Mini Pen Needle 31 gauge x 3/16" BD Ultra-Fine Mini Pen Needle 31 gauge x 3/16" No BD Ultra-Fine Mini Pen Needle 31 gauge x 3/16" [facility] metoprolol succinate ER [...] bromide 21 mcg (0.03 %) nasal spray [facility] albuterol sulfate HFA 90 mcg/actuati on aerosol inhaler INHALE 2 PUFFS BY MOUTH EVERY 4 TO 6 HOURS NEEDED albuterol sulfate HFA 90 mcg/actuati on aerosol inhaler INHALE 2 PUFFS BY MOUTH EVERY 4 TO 6 HOURS NEEDED No albuterol sulfate HFA 90 mcg/actuat ion aerosol inhaler INHALE 2 PUFFS BY MOUTH EVERY 4 TO 6 HOURS NEEDED [facility] cefdinir 300 mg capsule TAKE 1 CAPSULE BY MOUTH TWICE DAILY FOR 10 DAYS cefdinir 300 mg capsule TAKE 1 CAPSULE BY MOUTH TWICE DAILY FOR 10 DAYS No cefdinir 300 mg capsule TAKE 1 CAPSULE BY MOUTH TWICE DAILY FOR 10 DAYS [facility] sulfamethox azole 800 mg-trimetho prim 160 mg tablet TAKE 1 TABLET BY MOUTH TWICE DAILY FOR 14 DAYS sulfamethox azole 800 mg-trimetho prim 160 mg tablet TAKE 1 TABLET BY MOUTH TWICE DAILY FOR 14 DAYS No sulfametho xazole 800 mg-trimeth oprim 160 mg tablet TAKE 1 TABLET BY MOUTH TWICE DAILY FOR 14 DAYS [facility] Fiasp FlexTouch U-100 [...] glucose >200 using Cf 1:20; TDD 50 [facility] levofloxaci n 500 [...] by subcutaneo us route for 30 days. [facility] Mounjaro 15 mg/0.5 [...] by subcutaneo us route for 30 days. [facility] omeprazole 40 mg [...] START UNTIL ALL ANTIBIOTIC S ARE FINISHED [facility] Immunizations Ordered Immunization Name Filled Immunization Name Date Status Comments Source [id number]< sup>1</sup> 2021-02-13 00:00:00 Completed Radha Santana COVID-19, mRNA, LNP-S, PF, 100 mcg/0.5 mL dose (Moderna) - ML COVID-19, mRNA, LNP-S, PF, 100 mcg/0.5 mL dose (Moderna) - ML Unknown Completed [facility] Vital Signs Vital Name Observation Time Observation Value Comments S megan Systolic blood pressure 2021-06-11 14:21:00 131 mm[Hg] [...] 2021-06-04 18:30:00 44.92 kg/m2 [facility] Body Weight 2024-04-18 00:00:00 290 [lb_av] [facility] BMI (Body Mass Index) 2024-04-18 00:00:00 35.3 kg/m2 [facility] Height 2024-04-18 00:00:00 76 [in_i] [facility] BP Systolic 2023-10-20 00:00:00 143 mm[Hg] [facility] BMI (Body Mass Index) 2023-10-20 00:00:00 35.9 kg/m2 [facility] [facility] BP Diastolic 2023-10-20 00:00:00 85 mm[Hg] [facility] Body Weight 2023-10-20 00:00:00 295 [lb_av] [facility] Height 2023-10-20 00:00:00 76 [in_i] [facility] BP Diastolic 2023-04-20 00:00:00 92 mm[Hg] [facility] Height 2023-04-20 00:00:00 76 [in_i] [facility] BMI (Body Mass Index) 2023-04-20 00:00:00 36.6 kg/m2 [facility] BP Systolic 2023-04-20 00:00:00 154 mm[Hg] [facility] Body Weight 2023-04-20 00:00:00 300.6 [facility]lb_av[facility] Diastolic 2023-01-13 00:00:00 73 mm[Hg] [facility] Height 2023-01-13 00:00:00 76 [in_i] [facility] BMI (Body Mass Index) 2023-01-13 00:00:00 37.5 kg/m2 [facility] BP Systolic 2023-01-13 00:00:00 120 mm[Hg] [facility] Body Weight 2023-01-13 00:00:00 308 [lb_av] [facility] BP Diastolic 2022-07-25 00:00:00 82 mm[Hg] [facility] Height 2022-07-25 00:00:00 76 [in_i] [facility] BMI (Body Mass Index) 2022-07-25 00:00:00 37.7 kg/m2 [facility] BP Systolic 2022-07-25 00:00:00 134 mm[Hg] [facility] Body Weight 2022-07-25 00:00:00 310 [lb_av] [facility] BP Diastolic 2022-01-17 00:00:00 86 mm[Hg] [facility] Height 2022-01-17 00:00:00 76 [in_i] [facility] BMI (Body Mass Index) 2022-01-17 00:00:00 41.1 kg/m2 [facility] BP Systolic 2022-01-17 00:00:00 149 [...] Systolic blood pressure 2021-01-09 20:45:00 132 mm[Hg] [facility] Diastolic blood pressure 2021-01-09 20:45:00 82 mm[Hg] [facility] Heart rate 2021-01-09 20:45:00 78 /min [facility] Body temperature 2021-01-09 20:45:00 36.72 [facility] Body height 2021-01-09 20:45:00 193 cm [facility] Body weight 2021-01-09 20:45:00 163.93 kg [facility] BMI 2021-01-09 20:45:00 43.99 kg/m2 [facility] Oxygen saturation in Arterial blood by Pulse oximetry 2021-01-09 20:45:00 97 /min [facility] Systolic blood pressure 2021-01-09 20:45:00 132 mm[Hg] [facility] Diastolic blood pressure 2021-01-09 20:45:00 82 mm[Hg] [facility] Heart rate 2021-01-09 20:45:00 78 /min [facility] Body temperature 2021-01-09 20:45:00 36.72 [facility] Body height 2021-01-09 20:45:00 193 cm [facility] Body weight 2021-01-09 20:45:00 163.93 kg [facility] BMI 2021-01-09 20:45:00 43.99 kg/m2 [facility] Oxygen saturation in Arterial blood by Pulse oximetry 2021-01-09 20:45:00 97 /min [facility] Systolic blood pressure 2020-12-13 21:25:00 128 mm[Hg] [facility] Diastolic blood pressure 2020-12-13 21:25:00 82 mm[Hg] [facility] Heart rate 2020-12-13 21:25:00 95 /min [facility] Body temperature 2020-12-13 21:25:00 36.78 [facility] Body height 2020-12-13 21:25:00 193 cm [facility] Body weight 2020-12-13 21:25:00 165.518 kg [facility] BMI 2020-12-13 21:25:00 44.42 kg/m2 [facility] Oxygen saturation in Arterial blood by Pulse oximetry 2020-12-13 21:25:00 96 /min [facility] Systolic blood pressure 2020-10-10 21:52:00 117 mm[Hg] [facility] Diastolic blood pressure 2020-10-10 21:52:00 82 mm[Hg] [facility] Heart rate 2020-10-10 21:52:00 81 /min [facility] Body temperature 2020-10-10 21:52:00 36.39 [facility] Respiratory rate 2020-10-10 21:52:00 18 /min [facility] Body height 2020-10-10 21:52:00 193 cm [facility] Body weight 2020-10-10 21:52:00 159.802 kg [facility] BMI 2020-10-10 21:52:00 42.88 kg/m2 [facility] Oxygen saturation in Arterial blood by Pulse oximetry 2020-10-10 21:52:00 98 /min [facility] Systolic blood pressure 2020-10-03 21:56:00 105 mm[Hg] [facility] Diastolic blood pressure 2020-10-03 21:56:00 56 mm[Hg] [facility] Heart rate 2020-10-03 21:56:00 87 /min [facility] Body temperature 2020-10-03 21:56:00 37 [facility] Respiratory rate 2020-10-03 21:56:00 20 /min [facility] Oxygen saturation in Arterial blood by Pulse oximetry 2020-10-03 21:56:00 96 /min [facility] Body weight 2020-10-03 01:52:00 156.31 kg [facility] BMI 2020-10-03 01:52:00 41.95 kg/m2 [facility] Body height 2020-10-02 20:10:00 193 cm [facility] Heart Rate 2021-12-27 18:23:00 [facility] Systolic (mm Hg) 2021-12-27 18:23:00 [facility] Diastolic (mm Hg) 2021-12-27 18:23:00 [facility] Height 2021-12-27 18:23:00 193.04 cm [facility] Weight 2021-12-27 18:23:00 [facility] BMI Calculated 2021-12-27 18:23:00 [facility] Systolic (mm Hg) 2021-08-29 22:30:00 [facility] Diastolic (mm Hg) 2021-08-29 22:30:00 [facility] Height 2021-08-29 22:30:00 193.04 cm [facility] Weight 2021-08-29 22:30:00 [facility] BMI Calculated 2021-08-29 22:30:00 [facility] Diastolic (mm Hg) 2021-07-29 17:00:00 [facility] Heart Rate 2021-07-29 17:00:00 [facility] Respitory Rate 2021-07-29 17:00:00 [facility] Systolic (mm Hg) 2021-07-29 17:00:00 [facility] Heart Rate 2021-07-29 13:00:00 [facility]itory Rate 2021-07-29 13:00:00 [facility] Systolic (mm Hg) 2021-07-29 13:00:00 [facility] Diastolic (mm Hg) 2021-07-29 13:00:00 [facility] Temperature Oral (F) 2021-07-29 09:00:00 98.4 F [facility] Temperature Oral (F) 2021-07-29 05:00:00 97.4 F [facility] Heart Rate 2021-07-29 05:00:00 [facility] Respitory Rate 2021-07-29 05:00:00 [facility] Systolic (mm Hg) 2021-07-29 05:00:00 [facility] Diastolic (mm Hg) 2021-07-29 05:00:00 [facility] Temperature Oral (F) 2021-07-29 01:00:00 97.9 F [facility] Heart Rate 2021-07-29 01:00:00 [facility] Respitory Rate 2021-07-29 01:00:00 [facility] Systolic (mm Hg) 2021-07-29 01:00:00 [facility] Diastolic (mm Hg) 2021-07-29 01:00:00 [facility] Temperature Oral (F) 2021-07-28 20:55:00 97.9 F [facility] Heart Rate 2021-07-28 20:55:00 [facility] Respitory Rate 2021-07-28 20:55:00 [facility] Systolic (mm Hg) 2021-07-28 20:55:00 [facility] Diastolic (mm Hg) 2021-07-28 20:55:00 [facility] Height 2021-07-25 08:56:00 193.04 cm [facility] Height 2021-07-25 04:45:00 193.04 cm [facility] Height 2021-07-25 00:56:00 193.04 cm [facility] Weight 2021-07-23 14:12:00 [facility] BMI Calculated 2021-07-23 14:12:00 [facility] Systolic (mm Hg) 2021-06-05 19:30:00 [facility] Diastolic (mm Hg) 2021-06-05 19:30:00 [facility] Respitory Rate 2021-06-05 19:30:00 [facility] Systolic (mm Hg) 2021-06-05 19:00:00 [facility] Diastolic (mm Hg) 2021-06-05 19:00:00 [facility] Respitory Rate 2021-06-05 19:00:00 [facility] Systolic (mm Hg) 2021-06-05 18:30:00 [facility] Diastolic (mm Hg) 2021-06-05 18:30:00 [facility] Respitory Rate 2021-06-05 18:30:00 [facility] Heart Rate 2021-06-05 17:30:00 [facility] Heart Rate 2021-06-05 17:25:00 [facility] Heart Rate 2021-06-05 17:20:00 [facility] Height 2021-06-05 15:33:00 193.04 cm [facility] Weight 2021-06-05 15:33:00 [facility] BMI Calculated 2021-06-05 15:33:00 [facility] Systolic (mm Hg) 2021-05-23 15:14:00 [facility] Diastolic (mm Hg) 2021-05-23 15:14:00 [facility] Heart Rate 2021-05-23 15:14:00 [facility] Height 2021-05-23 15:14:00 182.88 cm [facility] Weight 2021-05-23 15:14:00 [facility] BMI Calculated 2021-05-23 15:14:00 [facility] Systolic (mm Hg) 2021-04-18 17:15:00 [facility] Diastolic (mm Hg) 2021-04-18 17:15:00 [facility] Systolic (mm Hg) 2021-04-18 17:00:00 [facility] Diastolic (mm Hg) 2021-04-18 17:00:00 [facility] Systolic (mm Hg) 2021-04-18 16:45:00 [facility] Diastolic (mm Hg) 2021-04-18 16:45:00 [facility] Respitory Rate 2021-04-18 16:30:00 [facility] Respitory Rate 2021-04-18 16:15:00 [facility] Respitory Rate 2021-04-18 16:00:00 [facility] Height 2021-04-18 12:47:00 152.4 cm [facility] Weight 2021-04-18 12:47:00 [facility] BMI Calculated 2021-04-18 12:47[facility]00 [facility]mm Hg) 2021-03-22 16:01:00 [facility] Diastolic (mm Hg) 2021-03-22 16:01:00 [facility] Heart Rate 2021-03-22 16:01:00 [facility] Height 2021-03-22 16:01:00 185.42 cm [facility] Weight 2021-03-22 16:01:00 [facility] BMI Calculated 2021-03-22 16:01:00 M yoditriedy Santana Procedures Procedure Date / Time Performed Performing Clinician Source ECG 12-LEAD 2024-03-08 15:28:52 [facility] 2023-03-02 16:21:[facility] 12-LEAD 2021-08-29 19:24:52 System, Prov ider Not In [facility] ECG 12-LEAD 2021-08-29 19:24:52 System, Prov ider Not In [facility] ECG 12-LEAD 2021-08-08 00:00:00 Moi Estrada [facility] XR CHEST 2 VIEWS 2021-08-07 14:03:54 [facility] XR CHEST 2 VIEWS 2021-08-07 14:03:54 [facility] XR CHEST 2 VIEWS 2021-07-23 17:27:31 [facility] XR CHEST 2 VIEWS 2021-07-23 17:27:31 Moi Estrada [facility] BREATHING CAPACITY TEST 2021-07-23 15:25:28 Brittanie Estrada [facility] ECG 12-LEAD 2021-07-16 00:00:00 Moi Estrada [facility] US CAROTID DOPPLER BILATERAL 2021-06-26 19:01:34 [facility] US CAROTID DOPPLER BILATERAL 2021-06-26 19:01:34 [facility] 2021-06-26 18:26:52 Moi Estrada [facility] CT CHEST WO CONTRAST 2021-06-26 18:26:52 Moi Estrada [facility] US DUP-SCAN HEMO COMPL UNI 2021-06-21 14:56:36 Moi Estrada [facility] US DUP-SCAN HEMO COMPL UNI 2021-06-21 14:56:36 Moi Estrada [facility] ECG 12-LEAD 2021-06-11 00:00:00 Moi Estrada [facility] th ECG 12-LEAD 2021-06-04 18:33:00 Mk Porter [facility] MRI CARDIAC MORPHOLOGY AND FUNCTION W AND WO IV CONTRAST 2021-05-11 22:26:00 [facility]ORPHOLOGY AND FUNCTION W AND WO IV CONTRAST 2021-05-11 22:26:00 [facility] D[facility]/SUPPLY JUSTIFICATION 2021-04-25 05:01:00 Doc emmanuelle Unassigned, [facility] DME/SUPPLY JUSTIFICATION 2021-04-10 05:01:00 Doc emmanuelle Unassigned, [facility] ASSIGNMENT OF BENEFITS 2020-10-10 21:36:15 Docnicolasa ojnas Unassigned, [facility] POCT GLUCOSE (AUTOMATED) 2020-10-03 22:51:00 [facility] POCT GLUCOSE (AUTOMATED) 2020-10-03 21:03:00 Itu [facility] POCT GLUCOSE (AUTOMATED) 2020-10-03 20:02:00 [facility]u [facility] POCT GLUCOSE (AUTOMATED) 2020-10-03 17:25:00 [facility] POCT GLUCOSE (AUTOMATED) 2020-10-03 13:40:00 [facility] MAGNESIUM 2020-10-03 11:08:00 [facility]OLIC PANEL (NA, K, CL, CO2, GLUCOSE, BUN, CREATININE, CA) 2020-10-03 11:08:00 [facility] N-TERMINAL PRO-BNP 2020-10-03 11:08:00 [facility] POCT GLUCOSE (AUTOMATED) 2020-10-03 02:16:00 Itu [facility] POCT GLUCOSE (AUTOMATED) 2020-10-03 00:28:00 Uniqueu [facility] TRANSESOPHAGEAL ECHO 2020-10-02 21:32:30 [facility] POCT GLUCOSE (AUTOMATED) 2020-10-02 20:07:00 Itu [facility] POCT GLUCOSE (AUTOMATED) 2020-10-02 16:10:00 [facility]u [facility] POCT GLUCOSE (AUTOMATED) 2020-10-02 14:11:00 Itu [facility] MAGNESIUM 2020-10-02 11:34:00 [facility]EL (NA, K, CL, CO2, GLUCOSE, BUN, CREATININE, CA) 2020-10-02 11:34:00 [facility] POCT GLUCOSE (AUTOMATED) 2020-10-02 10:34:00 Itu [facility] POCT GLUCOSE (AUTOMATED) 2020-10-02 06:06:00 Itu [facility] Echocardiogram<sup>1</sup> 2020-10-02 06:00:00 [facility] POCT GLUCOSE (AUTOMATED) 2020-10-02 02:19:00 Itu [facility] POCT GLUCOSE (AUTOMATED) 2020-10-01 23:01:00 Itu [facility] NM MYOCARDIAL VIABILITY REST 2020-10-01 21:55:48 [facility] POCT GLUCOSE (AUTOMATED) 2020-10-01 16:26:00 Itu [facility] POCT GLUCOSE (AUTOMATED) 2020-10-01 13:39:00 Itu [facility] MAGNESIUM 2020-10-01 11:14:00 [facility]IC [facility]OLIC PANEL (NA, K, CL, CO2, GLUCOSE, BUN, CREATININE, CA) 2020-10-01 11:14:00 [facility] POCT GLUCOSE (AUTOMATED) 2020-10-01 10:38:00 [facility]u [facility] POCT GLUCOSE (AUTOMATED) 2020-10-01 05:48:00 Itu [facility] POCT GLUCOSE (AUTOMATED) 2020-10-01 01:14:00 [facility] POCT GLUCOSE (AUTOMATED) 2020-09-30 22:43:00 [facility] POCT GLUCOSE (AUTOMATED) 2020-09-30 18:40:00 [facility] POCT GLUCOSE (AUTOMATED) 2020-09-30 15:22:00 [facility]u [facility] ECHO ROUTINE W/DOPPLER COLOR 2020-09-30 15:07:37 [facility] MAGNESIUM 2020-09-30 10:50:00 Shira [facility] BASIC METABOLIC PANEL (NA, K, CL, CO2, GLUCOSE, BUN, CREATININE, CA) 2020-09-30 10:50:00 [facility] ACTIVATED PARTIAL THRMPLAS RAY 2020-09-30 10:50:00 [facility] POCT GLUCOSE (AUTOMATED) 2020-09-30 10:46:00 Itu [facility] POCT GLUCOSE (AUTOMATED) 2020-09-30 05:37:00 Itu [facility] POCT GLUCOSE (AUTOMATED) 2020-09-30 03:06:00 Itu [facility] POCT GLUCOSE (AUTOMATED) 2020-09-30 00:32:00 [facility]u [facility] POCT GLUCOSE (AUTOMATED) 2020-09-29 21:52:00 [facility]u [facility] POCT GLUCOSE (AUTOMATED) 2020-09-29 18:30:00 [facility]u [facility] POCT GLUCOSE (AUTOMATED) 2020-09-29 14:48:00 [facility]u [facility] POCT GLUCOSE (AUTOMATED) 2020-09-29 11:31:00 [facility] POCT GLUCOSE (AUTOMATED) 2020-09-29 07:37:00 [facility] MAGNESIUM 2020-09-29 07:30:00 Shira [facility] TROPONIN I 2020-09-29 07:30:00 Eva Limon [facility] BASIC METABOLIC PANEL (NA, K, CL, CO2, GLUCOSE, BUN, CREATININE, CA) 2020-09-29 07:30:00 [facility] GLYCOS[facility]EMOGLOBIN (A1C) 2020-09-29 07:30:00 [facility] ACTIVATED PARTIAL THRMPLAS RAY 2020-09-29 07:30:00 Braxton [facility] POCT GLUCOSE (AUTOMATED) 2020-09-29 04:36:00 Itu [facility] POCT GLUCOSE (AUTOMATED) 2020-09-29 01:31:00 [facility]u [facility] ACTIVATED PARTIAL THRMPLAS RAY 2020-09-28 22:33:00 [facility] & RHYTHM STRIP 2020-09-28 20:09:53 [facility] POCT GLUCOSE (AUTOMATED) 2020-09-28 12:15:00 [facility]u [facility] TROPONIN I 2020-09-28 09:42:00 [facility] ACTIVATED PARTIAL THRMPLAS RAY 2020-09-28 09:42:00 [facility] POCT GLUCOSE (AUTOMATED) 2020-09-28 06:29:00 [facility] Cardiac catheterization, left heart<sup>2</sup> 2020-09-28 06:00:00 [facility] EKG-12 LEAD 2020-09-28 04:44:41 [facility] TROPONIN I 2020-09-28 03:26:00 Braxton Eva [facility] LIPID PANEL (62241)(TOTAL CHOLESTEROL, TRIGLYCERIDES, HDL) 2020-09-28 03:26:00 Braxton [facility] ACTIVATED PARTIAL THRMPLAS RAY 2020-09-28 03:26:00 Braxton [facility] CT CHEST PULMONARY ANGIOGRAM 2020-09-27 21:31:11 [facility] LACTATE DEHYDROGENASE 2020-09-27 21:05:00 [facility] LIPASE 2020-09-27 19:09:00 Elisabet Deshpande [facility] TROPONIN I 2020-09-27 19:09:00 Elisabet Deshpande [facility] HEPATIC FUNCTION PANEL (11395) (ALB,T.PRO,BILI T,BU/BC,ALT,AST,ALK PHOS) 2020-09-27 19:09:00 [facility] BASIC METABOLIC PANEL (NA, K, CL, CO2, GLUCOSE, BUN, CREATININE, CA) 2020-09-27 19:09:00 [facility] CBC WITH DIFF 2020-09-27 19:09:00 [facility] PROTHROMBIN TIME / INR 2020-09-27 19:09:00 [facility] D-DIMER 2020-09-27 19:09:00 Elisabet Deshpande [facility] ACTIVATED PARTIAL THRMPLAS RAY 2020-09-27 19:09:00 [facility] N-TERMINAL PRO-BNP 2020-09-27 19:09:00 [facility] COVID-19 (ID NOW RAPID TESTING) 2020-09-27 19:09:00 [facility] LAB ONLY COVID INTERPRETATION 2020-09-27 19:09:00 [facility] HB ECG ROUTINE & RHYTHM STRIP 2020-09-27 18:52:44 [facility] XR CHEST 1 VW 2020-09-27 18:52:03 [facility] PRIVAC[facility] PRACTICES 2020-09-27 18:03:30 Doctor Unassigned, [facility] CARDIAC CATHETERIZATION 2019-11-16 00:00:00 [facility] RIGHT SHOULDER SURGERY [facility] RIGHT FOOT SURGERY [facility] APPENDECTOMY [facility] Encounters Start Date/Time End Date/Time Encounter Type Admission Type Attending Clinicians Care Facility Care Department Encounter ID Source 2023-03-27 11:45:47 Outpatient [facility] [id number] [facility] 2023-01-05 12:32:47 Outpatient [facility] [id number] [facility] 2022-12-29 18:46:44 Outpatient [facility] [id number] [facility] 2022-08-27 18:04:34 Outpatient [facility] [id number] [facility] 2022-05-20 18:18:22 Outpatient KJ LOPEZ [facility] CAR [id number] [facility] 2022-02-14 14:40:31 Outpatient [facility] [id number] - [id number] [facility] 2022-02-12 13:10:48 Outpatient [facility]TN [facility] [id number] - [id number] [facility] 2021-12-04 08:31:55 Outpatient KJ LOPEZ [facility] CAR [id number] [facility] 2021-10-23 01:04:21 Outpatient MOI ESTRADA [facility] [id number] [facility] 2021-07-29 09:32:19 Outpatient MOI ESTRADA [facility] [id number] [facility] 2021-07-19 09:55:12 Outpatient MOI ESTRADA [facility] [id number] [facility] 2021-06-10 10:07:33 Outpatient MOI ESTRADA [facility] [id number] [facility] 2021-05-23 10:39:56 Outpatient MOI ESTRADA [facility] [id number] [facility] 2021-05-21 08:47:00 Outpatient MK PORTER [facility] [id number] [facility] 2021-03-26 01:03:33 Outpatient KJ LOPEZ [facility] [id number] [facility] 2024-10-06 00:00:00 2024-10-06 14:18:56 Refill Jessica Kj [facility] [place] [address] [facility] [id number]..[id number] [facility] 2024-04-18 00:00:00 2024-04-18 00:00:00 Garth Rios MD: [id number] [facility], [address], [place] [address] , Ph. [facility] - [place] - VM_HOU_Shad [place] [id number] [facility] 2024-03-08 09:49:00 2024-03-08 23:59:00 Outpatient KJ LOPEZ [facility] CAR [id number] [facility] 2024-03-08 09:45:00 2024-03-08 09:45:00 External Contact KJ LOPEZ EXT [facility] LOCATION ..[id number] [facility] 2024-02-25 00:00:00 2024-02-25 00:00:00 Outpatient Gabriel_T_HO U_MD [facility] [id number] [facility] 2023-10-21 00:00:00 2023-10-21 00:00:00 Outpatient Gabriel_T_HO U_MD [facility] [id number] [facility] 2023-10-20 00:00:00 2023-10-20 00:00:00 Outpatient Daniel_T_HO U_MD VFP VFP [id number] [facility] 2023-10-20 00:00:00 2023-10-20 00:00:00 Garth Rios MD: [id number], [address], [place] [address] , Ph. [phone] VFP [facility] - [place] - VM_HOU_Dineshd [place] [id number] [facility] 2023-10-17 00:00:00 2023-10-17 00:00:00 Outpatient Daniel_T_HO U_MD VFP VFP [id number] [facility] 2023-09-01 09:31:00 2023-09-01 23:59:00 Outpatient KJ LOPEZ [facility] CAR [id number] [facility] 2023-09-01 10:45:00 2023-09-01 10:45:00 External Contact KJ LOPEZ EXT [facility] LOCATION [id number] [facility] 2023-04-20 00:00:00 2023-04-20 00:00:00 Outpatient Daniel_T VFP VFP [id number] [facility] 2023-04-20 00:00:00 2023-04-20 00:00:00 Outpatient Daniel_T VFP VFP [id number] [facility] 2023-04-20 00:00:00 2023-04-20 00:00:00 Garth Rios MD: [id number], [address], [place] [address] , Ph. VFP [facility] [place] - VM_HOU_Shad [place] [id number] [facility] 2023-04-17 00:00:00 2023-04-17 00:00:00 Outpatient Daniel_T VFP VFP [id number] [facility] 2023-03-02 11:03:00 2023-03-02 23:59:00 Outpatient KJ LOPEZ [facility] CAR [id number] [facility] 2023-03-02 10:30:00 2023-03-02 10:30:00 External Contact KJ LOPEZ EXT [facility] LOCATION [id number] [facility] 2023-01-13 00:00:00 2023-01-13 00:00:00 Outpatient Daniel_T VFP VFP [id number] [facility] 2023-01-13 00:00:00 2023-01-13 00:00:00 Outpatient Daniel_T VFP VFP [id number] [facility] e 2023-01-13 00:00:00 2023-01-13 00:00:00 Garth Rios MD: [id number], [address], [place] [address] , Ph. [facility] [place] - [facility] - [place] - VM_HOU_Shagudelia [facility] [id number] [facility] e 2022-09-10 09:39:00 2022-09-10 23:59:00 Outpatient JESSICAKJ Koch [facility] [id number] [facility]-26 10:09:00 2022-08-26 23:59:00 Outpatient JESSICACELSO KochIT [facility] CAR [id number] [facility] 2022-08-26 10:15:00 2022-08-26 10:15:00 Office Visit KJ LOPEZ EXT MSRDP LOCATION 1..840.114 350.1.13.58 9.2.7.2.686 [id number] [facility] 2022-07-28 00:00:00 2022-07-28 00:00:00 Outpatient Daniel_T VFP VFP [id number] [facility] e 2022-07-25 00:00:00 2022-07-25 00:00:00 Outpatient Daniel_T VFP VFP [id number] [facility] 2022-07-25 00:00:00 2022-07-25 00:00:00 Garth Rios MD: [id number], [address], [place] [address] , Ph. VFP [place] - [facility] - VM_HOU_Shad ow [place] [id number] [facility] 2022-07-24 00:00:00 2022-07-24 00:00:00 Outpatient Daniel_T VFP VFP [id number] [facility] 2022-02-24 00:00:00 2022-02-24 00:00:00 Outpatient Daniel_T VFP VFP [id number] [facility] 2022-01-30 05:03:00 2022-01-30 05:03:00 Outpatient Daniel_T VFP VFP [id number] [facility] 2022-01-17 00:00:00 2022-01-17 00:00:00 Garth Rios MD: [id number], [facility] [address], [place] [address] , Ph. Daniel_T VFP [place] - [facility] - VM_HOU_[place] [id number] [facility] 2021-12-27 15:53:00 2021-12-28 05:59:00 Outpatient nullFlavo r [facility] Card[facility] [place] [id number] Halishyla Henryann 2021-12-27 09:53:00 2021-12-27 23:59:00 Outpatient KJ LOPEZ [facility] CAR [id number] [facility] 2021-12-25 07:43:00 2021-12-25 07:43:00 Outpatient Daniel_T VFP VFP [id number] [facility] 2021-12-23 19:05:00 2021-12-24 05:59:00 Outpt Diag Services nullFlavo r [facility] Outpatient Imaging [facility] [id number] [place] Sant[place] 2021-12-17 11:00:00 2021-12-17 13:01:59 Office Visit Moi Estrada [facility] 4 1.2.840.114 350.1.13.58 9.2.7.2.686 [id number] [facility] 2021-09-10 00:00:00 2021-09-10 00:00:00 EXT [facility] OP EXT MSRDP LOCATION 1.2.840.114 350.1.13.58 9.2.7.2.686 [id number] [facility] 2021-09-10 00:00:00 2021-09-10 00:00:00 EXT [facility] OP EXT MSRDP LOCATION 1.2.840.114 350.1.13.58 9.2.7.2.686 [id number] [facility] 2021-08-29 18:52:00 2021-08-30 04:59:00 Outpatient nullFlavo r [facility] Cardiology [place] [id number] 04 [place] Henryann 2021-08-29 13:52:00 2021-08-29 23:59:00 Outpatient KJ LOPEZ [facility] CAR [address] [facility] 2021-08-29 13:57:55 2021-08-29 14:12:55 Office Visit Kj Lopez EXT MSRDP LOCATION 1.2.840.114 350.1.13.58 9.2.7.2.686 [id number] [facility] 2021-08-29 13:57:55 2021-08-29 14:12:55 Office Visit KJ LOPEZ EXT MSRDP LOCATION 1.2.840.114 350.1.13.58 9.2.7.2.686 [id number] [facility] 2021-08-08 08:55:09 2021-08-08 10:19:56 Office Visit Moi Estrada [facility] 4 1.2.840.114 350.1.13.58 9.2.7.2.686 [id number] [facility] 2021-08-07 13:55:00 2021-08-08 04:59:00 Outpt Diag Services nullFlavo r [facility] Outpatient Imaging [facility] [id number] [place] 2021-08-07 00:00:00 2021-08-07 00:00:00 EXT [facility] OP Moi Estrada EXT MSRDP LOCATION 1.2.840.114 350.1.13.58 9.2.7.2.686 [id number] [facility] 2021-08-07 00:00:00 2021-08-07 00:00:00 Telephone Paulette Harris Jacqueline UTP [facility] 4 1.2840.114 350.1.13.58 9.2.7.2.686 [id number] [facility] 2021-08-07 00:00:00 2021-08-07 00:00:00 EXT [facility] OP Moi Estrada EXT MSRDP LOCATION 1.2.840.114 350.1.13.58 9.2.7.2.686 [id number] [facility] 2021-07-24 10:12:00 2021-07-29 21:27:00 Inpatient nullFlavo r [facility] [id number] [place] kang Gillham 2021-07-24 05:12:00 2021-07-29 16:27:00 Inpatient AIMEE MCGOWAN [facility] PUL [id number] [facility] 2021-07-29 00:00:00 2021-07-29 00:00:00 Telephone Fany Barrow Deanna [facility] 4 1.840.114 350.1.13.58 9.2.7.2.686 [id number] [facility] 2021-07-29 00:00:00 2021-07-29 00:00:00 Telephone Fany Barrow Deanna [facility] 4 1.2.840.114 350.1.13.58 9.2.7.2.686 [id number] [facility] 2021-07-29 00:00:00 2021-07-29 00:00:00 Orders Only Fany Barrow Barrow, Fany [facility] 4 1.2.840.114 350.1.13.58 9.2.7.2.686 [id number] [facility] 2021-07-29 00:00:00 2021-07-29 00:00:00 Telephone Danial Fanyjanie Barrow Fany [facility] 4 1.2.840.114 350.1.13.58 9.2.7.2.686 [id number] [facility] 2021-07-29 00:00:00 2021-07-29 00:00:00 Telephone BarrowMelissa wilcoxjanie Barrow, Fany [facility] 4 1.2.840.114 350.1.13.58 9.2.7.2.686 [id number] [facility] 2021-07-29 00:00:00 2021-07-29 00:00:00 Orders Only Fany Barrowblanc, Fany UTP [facility] 4 1.2.840.114 350.1.13.58 9.2.7.2.686 [id number] [facility] 2021-07-24 07:13:11 2021-07-24 12:13:11 EXT [facility] OP Moi Estrada EXT MSRDP LOCATION 1.2.840.114 350.1.13.58 9.2.7.2.686 [id number] [facility] 2021-07-24 07:13:11 2021-07-24 12:13:11 EXT [facility] OP Moi Estrada EXT MSRDP LOCATION 1.2.840.114 350.1.13.58 9.2.7.2.686 [id number] [facility] 2021-07-23 17:10:00 2021-07-24 04:59:00 Outpt Diag Services nullFlavo r [facility] Outpatient Imaging [facility] [id number] [place] 2021-07-23 00:00:00 2021-07-23 00:00:00 EXT H OP Moi Estrada EXT MSRDP LOCATION 1.2.840.114 350.1.13.58 9.2.7.2.686 [id number] [facility] 2021-07-23 00:00:00 2021-07-23 00:00:00 EXT H OP Moi Estrada EXT MSRDP LOCATION 1.2.840.114 350.1.13.58 9.2.7.2.686 [id number] [facility] 2021-07-17 00:00:00 2021-07-17 00:00:00 EXT [facility] OP Moi Estrada EXT MSRDP LOCATION 1.2.840.114 350.1.13.58 9.2.7.2.686 [id number] 0 [id number] [facility] 2021-07-17 00:00:00 2021-07-17 00:00:00 EXT H OP Moi Estrada EXT MSRDP LOCATION 1.2.840.114 350.1.13.58 9.2.7.2.686 [id number] 0 [id number] [facility] 2021-07-16 09:09:17 2021-07-16 10:52:16 Office Visit Moi Estrada [facility] 4 1.2.840.114 350.1.13.58 9.2.7.2.686 [id number] [facility] 2021-07-16 09:09:17 2021-07-16 10:52:16 Office Visit Moi Estrada [facility] 4 1.2.840.114 350.1.13.58 9.2.7.2.686 [id number] [facility] 2021-07-16 00:00:00 2021-07-16 00:00:00 Telephone Fany Barrow Deanna [facility] 4 1.2.840.114 350.1.13.58 9.2.7.2.686 [id number] [facility] 2021-07-16 00:00:00 2021-07-16 00:00:00 Telephone Fany Barrow Deanna [facility] 4 1.2.840.114 350.1.13.58 9.2.7.2.686 [id number] [facility] 2021-06-26 18:08:00 2021-06-27 04:59:00 Outpt Diag Services nullFlavo r [facility] Outpatient [facility] [id number] 00 [place] pearl Santana 2021-06-26 00:00:00 2021-06-26 00:00:00 EXT [facility] OP Moi Estrada EXT MSRDP LOCATION 1.2.840.114 350.1.13.58 9.2.7.2.686 [id number] [facility] 2021-06-26 00:00:00 2021-06-26 00:00:00 EXT [facility] OP Moi Estrada EXT MSRDP LOCATION 1.2.840.114 350.1.13.58 9.2.7.2.686 [id number] [facility] 2021-06-21 14:22:00 2021-06-22 04:59:00 Outpatient nullFlavo r [facility] [id number] [place] 2021-06-21 09:22:00 2021-06-21 23:59:00 Outpatient MOI ESTRADA [facility] [id number] [facility] 2021-06-21 05:45:00 2021-06-21 05:45:00 Outpatient Daniel_T VFP VFP [id number] [facility] 2021-06-19 00:00:00 2021-06-19 00:00:00 EXT [facility] OP Vishal Moi EXT MSRDP LOCATION 1.20.114 350.1.13.58 9.2.7.2.686 [id number] 0 [id number] [facility] 2021-06-19 00:00:00 2021-06-19 00:00:00 Telephone Fany Barrow Deanna UTP [facility] 4 1..114 350.1.13.58 9.2.7.2.686 [id number] [facility] 2021-06-19 00:00:00 2021-06-19 00:00:00 EXT [facility] OP Vishal Moi EXT MSRDP LOCATION 1.20.114 350.1.13.58 9.2.7.2.686 [id number] 0 [id number] [facility] 2021-06-18 00:00:00 2021-06-18 00:00:00 Garth Rios MD: [address], [address], [place] [address] , Ph. Gabriel_Jamar [facility] - _HOU_Shad [facility] [id number] [facility] 2021-06-14 00:00:00 2021-06-14 00:00:00 Telephone Fany Barrow Deanna [facility] 4 1..114 350.1.13.58 9.2.7.2.686 [id number] [facility] 2021-06-14 00:00:00 2021-06-14 00:00:00 Telephone Fany Barrow Deanna UTP [facility] 4 1..114 350.1.13.58 9.2.7.2.686 [id number] [facility] 2021-06-11 09:03:20 2021-06-11 10:29:18 Office Visit Moi Estrada [facility] 4 1..840.114 350.1.13.58 9.2.7.2.686 [id number] [facility] 2021-06-05 15:19:00 2021-06-05 20:30:00 Bedded Outpatient nullFlavo r [facility] [place] [id number] 2021-06-05 10:19:00 2021-06-05 15:30:00 Outpatient KJ LOPEZ [facility] CAR [id number] [facility] 2021-06-04 13:24:03 2021-06-04 14:16:53 Office Visit Mk Porter [facility] 1.2840.114 350.1.13.58 9.2.7.2.686 [id number] [facility] 2021-05-23 14:59:00 2021-05-24 04:59:[address] [facility] [id number] [facility] 2021-05-23 09:59:00 2021-05-23 23:59:00 Outpatient KJ LOPEZ [facility] CAR [id number] [facility] 2021-05-23 11:22:49 2021-05-23 12:23:40 Office Visit Moi Estrada [facility] 4 1..840.114 350.1.13.58 9.2.7.2.686 [id number] [facility] 2021-05-21 00:00:00 2021-05-21 00:00:00 Telephone Mk Porter [facility] 1..840.114 350.1.13.58 9.2.7.2.686 [id number] [facility] 2021-05-11 21:02:00 2021-05-12 04:59:00 Outpatient nullFlavo r [facility] [id number] [facility] 2021-05-11 16:02:00 2021-05-11 23:59:00 Outpatient KJ LOPEZ [facility] CAR [id number] [facility] 2021-05-09 00:00:00 2021-05-09 00:00:00 EXT [facility] OP Kj Lopez EXT MSRDP LOCATION 1.2.840.114 350.1.13.58 9.2.7.2.686 [id number] [facility] 2021-05-09 00:00:00 2021-05-09 00:00:00 EXT [facility] OP Kj Lopez EXT MSRDP LOCATION 1.2.840.114 350.1.13.58 9.2.7.2.686 [id number] [facility] 2021-04-25 00:00:00 2021-04-25 00:00:00 Orders Only Doctor Unassigned, [place] [facility] 1.2.840.114 350.1.13.10 4.2.7.2.686 [id number] [facility] 2021-04-25 00:00:00 2021-04-25 00:00:00 Orders Only Doctor Unassigned, [place] [facility] 1.2.840.114 350.1.13.10 4.2.7.2.686 [id number] 2021-04-18 12:29:00 2021-04-18 17:55:00 Bedded Outpatient [facility] [id number] [place] k[place] 2021-04-18 07:29:00 2021-04-18 12:55:00 Outpatient KJ LOPEZ [facility] CAR [id number] [facility] 2021-04-10 00:00:00 2021-04-10 00:00:00 Orders Only Doctor Unassigned, [place] [facility] 1.2.840.114 350.1.13.10 4.2.7.2.686 [id number] [facility] 2021-04-10 00:00:00 2021-04-10 00:00:00 Orders Only Doctor Unassigned, [place] [facility] 1.2.840.114 350.1.13.10 4.2.7.2.686 [id number] 2021-03-22 15:30:00 2021-03-23 04:59:00 Outpatient nullFlavo jose luis [facility] Cardiology [place] [id number] [place] 2021-03-22 10:30:00 2021-03-22 23:59:00 Outpatient KJ LOPEZ [facility] CAR [address] [facility] 2021-03-13 14:00:00 2021-03-13 14:00:00 Outpatient R MURRAY [facility] [id number] [facility] 2021-03-11 10:00:00 2021-03-11 10:00:00 Outpatient RAEANN JEFFERS [facility] [id number] [facility] 2021-01-28 00:00:00 2021-01-28 00:00:00 Telephone Murray [facility] Medical Office Building 1..840.114 350.1.13.10 4.2.7.2.686 [id number] [facility] 2021-01-28 00:00:00 2021-01-28 00:00:00 Telephone Murray [facility] Medical Office Building 1.2.840.114 350.1.13.10 4.2.7.2.686 [id number] 2021-01-25 15:00:00 2021-01-25 15:00:00 Outpatient R MURRAY [facility] [id number] [facility] 2021-01-23 00:00:00 2021-01-23 00:00:00 Patient Outreach Huy Judge [facility] 1.2.840.114 350.1.13.10 4.2.7.2.686 [id number] [facility] 2021-01-23 00:00:00 2021-01-23 00:00:00 Patient Outreach Huy Judge [facility] 1.2840.114 350.1.13.10 4.2.7.2.686 [id number] 2021-01-09 16:00:00 2021-01-09 16:00:00 Outpatient Jose Luis GAO [facility] [id number] [facility] 2021-01-09 14:27:31 2021-01-09 14:57:31 Office Visit Murray william [facility] Office Building 1.2840.114 350.1.13.10 4.2.7.2.686 [id number] [facility] 2021-01-09 14:27:31 2021-01-09 14:57:31 Office Visit Murray [facility] Office Building 1.2840.114 350.1.13.10 4.2.7.2.686 [id number] 2020-12-21 15:00:00 2020-12-21 15:00:00 Outpatient R MURRAY [facility] [id number] [facility] 2020-12-21 13:50:24 2020-12-21 14:05:24 Pool Cleaner Visit Draw, [facility] Murray william [facility] Office Building 1.2840.114 350.1.13.10 4.2.7.2.686 [id number] [facility] 2020-12-13 16:20:50 2020-12-13 16:35:50 Pool Cleaner Visit Draw, Clc[facility]Bls Lab Blaise Crouch [facility] Office Building 1.2840.114 350.1.13.10 4.2.7.2.686 [id number] [facility] 2020-12-13 15:03:01 2020-12-13 16:19:17 Office Visit Blaise Crouch [facility] Medical Office Building 1.2.840.114 350.1.13.10 4.2.7.2.686 [id number] [facility] 2020-12-13 15:15:00 2020-12-13 15:15:00 Outpatient R CROUCH BLAISE [facility] [id number] [facility] 2020-11-23 00:00:00 2020-11-23 00:00:00 Refill Murray [facility] Medical Office Building 1.2.840.114 350.1.13.10 4.2.7.2.686 [id number] [facility] 2020-10-18 00:00:00 2020-10-18 00:00:00 Patient Outreach Cristina Stephens 1.2.840.114 350.1.13.10 4.2.7.2.686 [id number] [facility] 2020-10-10 16:44:39 2020-10-10 16:59:39 Pool Cleaner Visit Ezekiel, [facility] Lab Murray [facility] Medical Office Building 1.2.840.114 350.1.13.10 4.2.7.2.686 [id number] [facility] 2020-10-10 15:37:28 2020-10-10 16:46:12 Office Visit Murray [facility] Medical Office Building 1.2.840.114 350.1.13.10 4.2.7.2.686 [id number] [facility] 2020-10-10 16:00:00 2020-10-10 16:00:00 Outpatient R MURRAY [facility] [id number] [facility] 2020-10-10 00:00:00 2020-10-10 00:00:00 Orders Only Doctor Unassigned, [place] [facility] 1.2.840.114 350.1.13.10 4.2.7.2.686 [id number] [facility] 2020-10-08 03:15:00 2020-10-08 03:15:00 Outpatient Daniel_T VFP VFP [id number] [facility] e 2020-10-04 00:00:00 2020-10-04 00:00:00 Transition of Care Petrona Padilla 1.2.840.114 350.1.13.10 4.2.7.2.686 [id number] [facility] 2020-10-04 00:00:00 2020-10-04 00:00:00 Transition of Care Maya Jessica 1.2.840.114 350.1.13.10 4.2.7.2.686 [id number] [facility] 2020-09-27 12:25:00 2020-10-03 20:29:00 Hospital Encounter Elisabet Deshpande, Oleksandr Braswell [facility] 1.2.840.114 350.1.13.10 4.2.7.2.686 [id number] [facility] 2020-09-27 12:06:00 2020-09-27 12:06:00 Emergency X [facility] ERT [id number] [facility] Results Test Description Test Time Test Comments Results Result Co mments Source [facility] [id number] 00:52:54SEE MDCapsule Hemoglobin A1c measurement device [id number] 09:30:58* Test Item Value Reference Range Interpretation Comme nts Hemoglobin A1c/Hemoglobin.to rocky in Blood (test code = 4548-4) 6.5 % 4.0-6.4 [facility]Mass/volume] in Capillary [id number] 09:26:40* Test Item Value Reference Range Interpretation Comme nts Blood Glucose: mg/dl (test c ode = Blood Glucose: mg/dl) 131 [facility] Practice[facility]em[facility] A[facility] device [id number] 10:27:06* Test Item Value Reference Range Interpretation Comme nts Hemoglobin A1c/Hemoglobin.to rocky in Blood (test code = 4548-4) 6.9 % 4.0-6.4 [facility] PracticeGl[facility] [Mass/volume] in Capillary [id number] 10:21:18* Test Item Value Reference Range Interpretation Comme nts Blood Glucose: mg/dl (test c ode = Blood Glucose: mg/dl) 153 [facility] device [id number] 13:53:22* Test Item Value Reference Range Interpretation Comme nts Hemoglobin A1c/Hemoglobin.to rocky in Blood (test code = 4548-4) 7.0 % 5.7-6.4 [facility] [Mass/volume] in Capillary [id number] 13:49:10* Test Item Value Reference Range Interpretation Comme nts Blood Glucose: mg/dl (test c ode = Blood Glucose: mg/dl) 149 [facility] measurement device [id number] 10:40:31* Test Item Value Reference Range Interpretation Comme nts Hemoglobin A1c/Hemoglobin.to rocky in Blood (test code = 4548-4) 6.7 % 5.7-6.4 [facility] [Mass/volume] in Capillary [id number] 10:37:30* Test Item Value Reference Range Interpretation Comme nts Blood Glucose: mg/dl (test c ode = Blood Glucose: mg/dl) 149 [facility] device [id number] 08:51:25* Test Item Value Reference Range Interpretation Comme nts Hemoglobin A1C Fingerstick: (test code = Hemoglobin A1C Fingerstick:) 6.2 [facility] PracticeGl[facility] [Mass/volume] in Capillary [id number] 08:51:14* Test Item Value Reference Range Interpretation Comme nts Blood Glucose: mg/dl (test c ode = Blood Glucose: mg/dl) 127 [facility] [id number] 09:59:00* Test Item Value Reference Range Interpretation Comme nts Glucose Lvl (test code = Glucose Lvl) 101 70- [facility]whFZZZDWVEIO0236-72-93 09:59:00* Test Item Value Reference Range Interpretation Comme nts Segs (test code = Segs) 53.1 45.0-75.0 [facility]2021-09-12 15:37:00* Test Item Value Reference Range Interpretation Comme nts Glucose Lvl (test code = Glucose Lvl) 190 70- [facility] NortheastWmrbtimVZDXQFWKRC5935-40-00 15:37:00* Test Item Value Reference Range Interpretation Comme nts WBC X 10x3 (test code = WBC X 10x3) 7.4 3.7-10.4 [facility]2021-09-11 07:38:00* Test Item Value Reference Range Interpretation Comme nts Glucose Lvl (test code = Glucose Lvl) 127 - [facility] NortheastOwaynvnLLPLCMFXUX0221-51-19 07:38:00* Test Item Value Reference Range Interpretation Comme nts Segs (test code = Segs) 63.3 45.0-75.0 [facility] [id number] 07:38:00* Test Item Value Reference Range Interpretation Comme nts Ca Ion WB (test code = Ca Ion WB) 1.15 1.05-1.25 [facility] ClubRwwvrrgDPYSDBUKYNYD7816-22-29 21:20:00* Test Item Value Reference Range Interpretation Comme nts Potassium Lvl (test code = P otassium Lvl) 3.8 3.5-5.1 [facility] [id number] 07:51:00* Test Item Value Reference Range Interpretation Comme nts Glucose Lvl (test code = Glucose Lvl) 178 [id number] 07:51:00* Test Item Value Reference Range Interpretation Comme nts WBC X 10x3 (test code = WBC X 10x3) 8.9 3.7-10.4 [facility] [id number] 07:51:00* Test Item Value Reference Range Interpretation Comme nts Ca Ion WB (test code = Ca Ion WB) 1.21 1.05-1.25 [facility] [id number] 02:59:00* Test Item Value Reference Range Interpretation Comme nts Lactic Acid Lvl (test code = Lactic Acid Lvl) 1.2 0.5-2.2 [facility] [id number] 20:42:00* Test Item Value Reference Range Interpretation Comme nts Lactic Acid Lvl (test code = Lactic Acid Lvl) 3.4 0.5-2.2 [facility] [id number] 14:34:00* Test Item Value Reference Range Interpretation Comme nts Lactic Acid Lvl (test code = Lactic Acid Lvl) 6.8 0.5-2.2 [id number] 14:34:00* Test Item Value Reference Range Interpretation Comme nts Segs (test code = Segs) 83.9 45.0-75.0 [facility] [id number] 14:34:00* Test Item Value Reference Range Interpretation Comme nts Ca Ion WB (test code = Ca Ion WB) 1.19 1.05-1.25 [id number] 07:44:00* Test Item Value Reference Range Interpretation Comme nts POC Activated Clotting Time (test code = POC Activated Clotting Time) 154 s [facility] [id number] 07:19:00* Test Item Value Reference Range Interpretation Comme nts Total Protein (test code = T otal Protein) 6.1 6.4-8.4 [id number] 07:19:00* Test Item Value Reference Range Interpretation Comme nts PT (test code = PT) 16.4 s 12.0-14.7 [id number] 01:01:00* Test Item Value Reference Range Interpretation Comme nts PTT (test code = PTT) 33.1 s 22.9-35.8 [facility] [id number] 20:48:00* Test Item Value Reference Range Interpretation Comme nts Total Protein (test code = T otal Protein) 5.9 6.4-8.4 [facility]PyhzuumZEMLUIWYHZ9775-75-69 20:44:00* Test Item Value Reference Range Interpretation Comme nts PTT (test code = PTT) 29.3 s 22.9-35.8 [facility] [id number] 19:21:00* Test Item Value Reference Range Interpretation Comme nts FFP product (test code = FFP product) Product available (07/24/21 2:21 PM) [facility] - [id number] 14:50:00* Test Item Value Reference Range Interpretation Comme nts MRSA by PCR (test code = MRSA by PCR) Negative (07/23/21 9:50 AM) [facility] ClubTengaged [id number] 14:50:00* Test Item Value Reference Range Interpretation Comme nts ABO/Rh (test code = ABO/Rh) A POS [facility] CenterOolgjuwKJWZLTFOCL4150-01-03 14:50:00* Test Item Value Reference Range Interpretation Comme nts PTT (test code = PTT) 31.6 s 22.9-35.8 [facility] CenterIffpaouUYEUPR7153-26-59 14:50:00* Test Item Value Reference Range Interpretation Comme nts Trig (test code = Trig) 118 [facility] [id number] 14:50:00* Test Item Value Reference Range Interpretation Comme nts Hgb A1C (test code = Hgb A1C) 7.2 [facility] [id number] 14:47:00* Test Item Value Reference Range Interpretation Comme nts RBC product (test code = RBC product) Product available (07/23/21 9:47 AM) [facility] CenterXiuyssjIEHRMBFUGA6400-64-17 13:23:00* Test Item Value Reference Range Interpretation Comme nts Coronavirus (COVID-19) JANNA (test code = Coronavirus (COVID-19) JANNA) Not Detected (07/23/21 8:23 AM) [facility] ClubVativ TechnologiesBreathing capacity womu0637-28-58 05:00:00SEE IMAGELINKInterface, [facility] Imaging Results - 07/23/2021 12:02 PM CDTFormatting of this note mightbe different from the original.SEE IMAGELINKUT HealthELECTROLYTES 2021-06-05 15:47:00* Test Item Value Reference Range Interpretation Comme nts POC Sodium (test code = POC Sodium) 141 135-145 [facility] CenterCHEM [id number] 15:37:00* Test Item Value Reference Range Interpretation Comme nts Glucose Lvl (test code = Glucose Lvl) 196 70-99 [facility] HospitalIahapdiHPYKXURLXI7523-16-57 15:37:00* Test Item Value Reference Range Interpretation Comme nts WBC (test code = WBC) 7.7 3.7-10.4 [facility] [id number] 22:03:00* Test Item Value Reference Range Interpretation Comme nts POC Creatinine (test code = POC Creatinine) 1.0 0.5-1.4 [facility] ClubIrmmardXIJPRSKTVWDA6057-97-24 13:28:00* Test Item Value Reference Range Interpretation Comme nts POC Sodium (test code = POC Sodium) 140 135-145 [facility] [id number] 12:54:00* Test Item Value Reference Range Interpretation Comme nts Glucose Lvl (test code = Glucose Lvl) 158 70-99 [facility] HospitalVwjlgbzJAIICMXSKR6333-04-92 12:54:00* Test Item Value Reference Range Interpretation Comme nts WBC (test code = WBC) 6.9 3.7-10.4 [facility] CenterGrswtqpLUPXYGNNWZ4581-10-89 18:43:00* Test Item Value Reference Range Interpretation Comme nts Coronavirus (COVID-19) JANNA (test code = Coronavirus (COVID-19) JANNA) Not Detected (04/16/21 1:43 PM) [facility] GLUCOSE (AUTOMATED)2020-10-03 22:57:00* Test Item Value Reference Range Interpretation Comme nts POCT GLU (test code = 7502455179) 233 mg/dL 70-110 H Notified Provide r Lab Interpretation (test code = 22197-8) Abnormal [facility] GLUCOSE (AUTOMATED)2020-10-03 21:05:00* Test Item Value Reference Range Interpretation Comme nts POCT GLU (test code = 2956755094) 282 mg/dL 70-110 H Lab Interpretation (test cod e = 07578-8) Abnormal [facility] GLUCOSE (AUTOMATED)2020-10-03 20:12:00* Test Item Value Reference Range Interpretation Comme nts POCT GLU (test code = 4201799755) 307 mg/dL 70-110 H Lab Interpretation (test cod e = 89468-1) Abnormal [facility] GLUCOSE (AUTOMATED)2020-10-03 17:27:00* Test Item Value Reference Range Interpretation Comme nts POCT GLU (test code = 6794670254) 302 mg/dL 70-110 H Notified Provide r Lab Interpretation (test code = 83564-2) [facility] HospitalP[facility] GLUCOSE (AUTOMATED)2020-10-03 13:41:00* Test Item Value Reference Range Interpretation Comme nts POCT GLU (test code = 6490140187) 140 mg/dL 70-110 H Notified Provide r Lab Interpretation (test code = 50334-9) [facility] HospitalN-TERMINAL [id number] 12:14:00* Test Item Value Reference Range Interpretation Comme [facility] NT-proBNP (test code = 3453810823) 722 pg/mL See_Comment H [Automated message] The system which generated this result transmitted reference range: <=125. The reference range was not used to interpret this result as normal/abnormal. KARSON (test code = KARSON) Biotin has been reported to cause a negative bias, interpret results relative to patient's use of biotin. Lab Interpretation (test code = 19633-5) Abnormal [facility] METABOLIC PANEL (NA, K, CL, CO2, GLUCOSE, BUN, CREATININE, CA)2020-10-03 12:01:00* Test Item Value Reference Range Interpretation Comme [facility] NA (test code = 4044946526) 135 mmol/L 135-145 K (test code = 4357658239) 3.5 mmol/L 3.5-5 CL (test code = 4286362440) 102 mmol/L 98-108 CO2 TOTAL (test code = 7344106302) 30 mmol/L 23-31 AGAP (test code = 8848790687) 2-16 BUN (test code = 3400392974) 28 mg/dL 7-23 H GLUCOSE (test code = 1875925583) 140 mg/dL 70-110 H CREATININE (test code = 0659344674) 0.96 mg/dL 0.6-1.25 CALCIUM (test code = 4589138273) 8.6 mg/dL 8.6-10.6 eGFR Calculation (Non-) (test code = 9045581056) mL/min/1.73m2 eGFR Calculation () (test code = 6916481654) mL/min/1.73m2 KARSON (test code = KARSON) Association [...] imaging tests). Lab Interpretation (test code = 36034-8) [facility] HospitalMAGNESIUM2020-11-18 12:01:00* Test Item Value Reference Range Interpretation Comme nts MAGNESIUM (test code = 0561459463) 2.2 mg/dL 1.7-2.4 Lab Interpretation (test cod e = 76936-3) [facility] HospitalLAB ONLY COVID [id number] 11:39:00COVID DMT InterpretationInterpretation/Recommendations: Molecular NAAT Test Results [...] a nasopharyngeal sample, there is approximately a udo-ji-xaovl chance that the patient was infected and [...] based upon aggregate COVID-19 test results pooledfrom [facility]. They apply to the following tests offered at [facility] and assume the acceptable specimen type(s) were used: A. Tests for the Identification of SARS-CoV-2 RNA (Molecular NAAT Tests):SARS-CoV-2 PCR assays including [place] Aptima, [place] Fusion, Mullins RealTime, and Prism Microwave Xpert Xpress. SARS-CoV-2 Rapid ID NOW by the ID NOW assay.? B. Tests for the Identification of SARS-CoV-2 Antibodies: Chemiluminescent immunoassays including Access SARS-CoV-2 IgM (DXI 600), Orchid [employer] HoldingsS Qgje-ZKMJ-QrV-2 IgG (Vitros 5600 and Vitros 3600), and Mullins SARS-CoV-2 IgG (LIGHTNING ROD INSTALLER I System). ?These interpretations are autopopulated into [employer] based on computerized algorithms matching an interpretation code to the patient's set of test results, and a clinical pathologist evaluates the comments for accuracy. However, these comments do not consider testing a patient may have had outside of the [facility] system. If results for COVID-19 [...] bronchoalveolar lavage fluid (BAL), tracheal aspirate, etc.). ?[facility] LABORATORY SERVICESCOVID NllaeuoKVKT-FxP-0 Rapid ID NOW (no units) ? ? Date ? Value ? 09/27/2020 ? Not Detected ? [facility]2020-10-03 02:18:00* Test Item Value Reference Range Interpretation Comme nts POCT GLU (test code = 0614365696) 253 mg/dL 70-110 H Lab Interpretation (test cod e = 56481-0) Abnormal [facility] GLUCOSE (AUTOMATED)2020-10-03 00:29:00* Test Item Value Reference Range Interpretation Comme nts POCT GLU (test code = 5770166505) 203 mg/dL 70-110 H Notified Provide r Lab Interpretation (test code = 72394-3) Abnormal [facility] GLUCOSE (AUTOMATED)2020-10-02 20:08:00* Test Item Value Reference Range Interpretation Comme nts POCT GLU (test code = 9372547264) 207 mg/dL 70-110 H Lab Interpretation (test cod e = 72548-5) Abnormal [facility] GLUCOSE (AUTOMATED)2020-10-02 16:11:00* Test Item Value Reference Range Interpretation Comme nts POCT GLU (test code = 8689722320) 230 mg/dL 70-110 H Lab Interpretation (test cod e = 30200-0) Abnormal [facility] GLUCOSE (AUTOMATED)2020-10-02 14:12:00* Test Item Value Reference Range Interpretation Comme nts POCT GLU (test code = 7898194705) 165 mg/dL 70-110 H Notified Provide r Lab Interpretation (test code = 42088-6) Abnormal [facility] METABOLIC PANEL (NA, K, CL, CO2, GLUCOSE, BUN, CREATININE, CA)2020-10-02 13:48:00* Test Item Value Reference Range Interpretation Comme nts NA (test code = 4380990056) 136 mmol/L 135-145 K (test code = 2345814111) 4.0 mmol/L 3.5-5 CL (test code = 3690636325) 98 mmol/L 98-108 CO2 TOTAL (test code = 0351605490) 31 mmol/L 23-31 AGAP (test code = 1434607821) 2-16 BUN (test code = 0092984211) 29 mg/dL 7-23 H GLUCOSE (test code = 0767218710) 148 mg/dL 70-110 H CREATININE (test code = 2290573514) 1.11 mg/dL 0.6-1.25 CALCIUM (test code = 4415333683) 8.9 mg/dL 8.6-10.6 eGFR Calculation (Non-) (test code = 1478227475) mL/min/1.73m2 eGFR Calculation () (test code = 9917989508) mL/min/1.73m2 KARSON (test code = KARSON) Association [...] imaging tests). Lab Interpretation (test code = 52766-8) [facility] HospitalMAGNESIUM2020-11-17 13:48:00* Test Item Value Reference Range Interpretation Comme nts MAGNESIUM (test code = 4447501199) 2.2 mg/dL 1.7-2.4 Lab Interpretation (test cod e = 26591-2) Normal [facility] GLUCOSE (AUTOMATED)2020-10-02 10:37:00* Test Item Value Reference Range Interpretation Comme nts POCT GLU (test code = 5770524713) 150 mg/dL 70-110 H Lab Interpretation (test cod e = 29470-8) Abnormal [facility] GLUCOSE (AUTOMATED)2020-10-02 06:07:00* Test Item Value Reference Range Interpretation Comme nts POCT GLU (test code = 9611964588) 176 mg/dL 70-110 H Lab Interpretation (test cod e = 89568-1) Abnormal [facility] GLUCOSE (AUTOMATED)2020-10-02 02:30:00* Test Item Value Reference Range Interpretation Comme nts POCT GLU (test code = 4975065694) 246 mg/dL 70-110 H Lab Interpretation (test cod e = 50391-0) Abnormal [facility] GLUCOSE (AUTOMATED)2020-10-01 23:06:00* Test Item Value Reference Range Interpretation Comme nts POCT GLU (test code = 1868392417) 243 mg/dL 70-110 H Lab Interpretation (test cod e = 82180-3) [facility] HospitalNM MYOCARDIAL VIABILITY [id number] 22:15:07Impression: 1) Evidence of complete viability in [...] mL; ESV = 180 mL; EF= 21%. [facility] [place], Radiant Results Inft User - 10/01/2020 4:16 [...] by Dr Rey interpretation by Reji Randall MD.[facility] HospitalPOCT GLUCOSE (AUTOMATED)2020-10-01 16:35:00 * Test Item Value Reference Range Interpretation Comme nts POCT GLU (test code = 5219963193) 229 mg/dL 70-110 H Lab Interpretation (test cod e = 38522-7) [facility] HospitalPOVA GLUCOSE (AUTOMATED)2020-10-01 13:40:00* Test Item Value Reference Range Interpretation Comme [facility] POCT GLU (test code = 5666066550) 244 mg/dL 70-110 H Lab Interpretation (test cod e = 52353-7) Abnormal [facility] METABOLIC PANEL (NA, K, CL, CO2, GLUCOSE, BUN, CREATININE, CA)2020-10-01 12:51:00* Test Item Value Reference Range Interpretation Comme [facility] NA (test code = 4358358842) 134 mmol/L 135-145 L K (test code = 1154734468) 3.9 mmol/L 3.5-5 CL (test code = 2460328361) 97 mmol/L 98-108 L CO2 TOTAL (test code = 9936725239) 32 mmol/L 23-31 H AGAP (test code = 2509752166) 2-16 BUN (test code = 7194574837) 23 mg/dL 7-23 GLUCOSE (test code = 4299826725) 237 mg/dL 70-110 H CREATININE (test code = 7378791838) 1.01 mg/dL 0.6-1.25 CALCIUM (test code = 7577729923) 8.6 mg/dL 8.6-10.6 eGFR Calculation (Non-) (test code = 6938575181) mL/min/1.73m2 eGFR Calculation () (test code = 6458384724) mL/min/1.73m2 KARSON (test code = KARSON) Association [...] imaging tests). Lab Interpretation (test code = 75577-8) [facility]2020-[facility]-16 12:51:00* Test Item Value Reference Range Interpretation Comme nts MAGNESIUM (test code = 3957752397) 1.9 mg/dL 1.7-2.4 Lab Interpretation (test cod e = 91878-1) Normal [facility] GLUCOSE (AUTOMATED)2020-10-01 10:40:00* Test Item Value Reference Range Interpretation Comme nts POCT GLU (test code = 9803042286) 230 mg/dL 70-110 H Lab Interpretation (test cod e = 07267-1) Abnormal [facility] GLUCOSE (AUTOMATED)2020-10-01 06:00:00* Test Item Value Reference Range Interpretation Comme nts POCT GLU (test code = 9084216763) 281 mg/dL 70-110 H Lab Interpretation (test cod e = 62546-5) Abnormal [facility] GLUCOSE (AUTOMATED)2020-10-01 01:18:00* Test Item Value Reference Range Interpretation Comme nts POCT GLU (test code = 3231728979) 201 mg/dL 70-110 H Lab Interpretation (test cod e = 07529-3) Abnormal [facility] GLUCOSE (AUTOMATED)2020-09-30 22:45:00* Test Item Value Reference Range Interpretation Comme nts POCT GLU (test code = 2515841974) 239 mg/dL 70-110 H Lab Interpretation (test cod e = 37472-1) Abnormal [facility] GLUCOSE (AUTOMATED)2020-09-30 18:42:00* Test Item Value Reference Range Interpretation Comme [facility] POCT GLU (test code = 0619101080) 305 mg/dL 70-110 H Notified Provide r Lab Interpretation (test code = 83099-1) [facility] HospitalP[facility] GLUCOSE (AUTOMATED)2020-09-30 15:23:00* Test Item Value Reference Range Interpretation Comme [facility] POCT GLU (test code = 1419682048) 259 mg/dL 70-110 H Lab Interpretation (test cod e = 83358-1) Abnormal [facility] METABOLIC PANEL (NA, K, CL, CO2, GLUCOSE, BUN, CREATININE, CA)2020-09-30 11:28:00* Test Item Value Reference Range Interpretation Comme [facility] NA (test code = 4557652986) 133 mmol/L 135-145 L K (test code = 3151069527) 4.1 mmol/L 3.5-5 CL (test code = 8387865091) 98 mmol/L 98-108 CO2 TOTAL (test code = 5242978144) 29 mmol/L 23-31 AGAP (test code = 2324704687) 2-16 BUN (test code = 4775003757) 23 mg/dL 7-23 GLUCOSE (test code = 9032654471) 275 mg/dL 70-110 H CREATININE (test code = 8249441872) 0.91 mg/dL 0.6-1.25 CALCIUM (test code = 7031749021) 8.6 mg/dL 8.6-10.6 eGFR Calculation (Non-) (test code = 7724414326) mL/min/1.73m2 eGFR Calculation () (test code = 8055834349) mL/min/1.73m2 KARSON (test code = KARSON) Association [...] imaging tests). Lab Interpretation (test code = 86367-6) [facility] HospitalMAGNESIUM2020-11-15 11:28:00* Test Item Value Reference Range Interpretation Comme nts MAGNESIUM (test code = 2082088594) 1.9 mg/dL 1.7-2.4 Lab Interpretation (test cod e = 45061-4) [facility] HospitalaPTT (for use with Heparin Drip)2020-09-30 11:23:00* Test Item Value Reference Range Interpretation Comme nts APTT Patient (test code = 3173-2) See_Comment [Automated Roseonlya ge] The system which generated this result transmitted reference range: 26 - 36 Seconds. The reference range was not used to interpret this result as normal/abnormal. Lab Interpretation (test code = 58223-5) Normal [facility] GLUCOSE (AUTOMATED)2020-09-30 10:54:00* Test Item Value Reference Range Interpretation Comme nts POCT GLU (test code = 5242030729) 267 mg/dL 70-110 H Lab Interpretation (test cod e = 08852-9) Abnormal [facility] GLUCOSE (AUTOMATED)2020-09-30 05:38:00* Test Item Value Reference Range Interpretation Comme nts POCT GLU (test code = 1274163299) 217 mg/dL 70-110 H Lab Interpretation (test cod e = 86006-5) Abnormal [facility] GLUCOSE (AUTOMATED)2020-09-30 03:07:00* Test Item Value Reference Range Interpretation Comme nts POCT GLU (test code = 6068511522) 234 mg/dL 70-110 H Lab Interpretation (test cod e = 07639-0) Abnormal [facility] GLUCOSE (AUTOMATED)2020-09-30 00:33:00* Test Item Value Reference Range Interpretation Comme nts POCT GLU (test code = 3729140894) 292 mg/dL 70-110 H Notified Provide r Lab Interpretation (test code = 25480-5) Abnormal [facility] GLUCOSE (AUTOMATED)2020-09-29 21:54:00* Test Item Value Reference Range Interpretation Comme nts POCT GLU (test code = 2492808804) 414 mg/dL 70-110 H Lab Interpretation (test cod e = 28722-8) Abnormal [facility] GLUCOSE (AUTOMATED)2020-09-29 18:31:00* Test Item Value Reference Range Interpretation Comme nts POCT GLU (test code = 7882230325) 341 mg/dL 70-110 H Notified Provide r Lab Interpretation (test code = 08075-7) Abnormal [facility] GLUCOSE (AUTOMATED)2020-09-29 14:49:00* Test Item Value Reference Range Interpretation Comme nts POCT GLU (test code = 0741885447) 146 mg/dL 70-110 H Lab Interpretation (test cod e = 58397-3) Abnormal [facility] GLUCOSE (AUTOMATED)2020-09-29 11:44:00* Test Item Value Reference Range Interpretation Comme nts POCT GLU (test code = 0902655310) 139 mg/dL 70-110 H Lab Interpretation (test cod e = 04322-3) [facility]normal [facility] HospitalGLYCOSYLATED HEMOGLOBIN (A1C)2020-09-29 09:15:00* Test Item Value Reference Range Interpretation Comme nts HGB A1C (test code = 4548-4) 8.8 % 4-6 H Lab Interpretation (test cod e = 35606-2) [facility] HospitalTroponin [id number] 08:42:00* Test Item Value Reference Range Interpretation Comme nts TROPONIN I (test code = 4954918329) 0.101 ng/mL See_Comment H [Automated message] The [...] biotin. ? Lab Interpretation (test code = 27221-3) Abnormal [facility] METABOLIC PANEL (NA, K, CL, CO2, GLUCOSE, BUN, CREATININE, CA)2020-09-29 08:25:00* Test Item Value Reference Range Interpretation Comme nts NA (test code = 1023729438) 135 mmol/L 135-145 K (test code = 0250716864) 3.9 mmol/L 3.5-5 CL (test code = 9142849852) 100 mmol/L 98-108 CO2 TOTAL (test code = 1239109115) 32 mmol/L 23-31 H AGAP (test code = 7466996771) 2-16 BUN (test code = 5364659737) 17 mg/dL 7-23 GLUCOSE (test code = 9328679927) 213 mg/dL 70-110 H CREATININE (test code = 7653513191) 0.76 mg/dL 0.6-1.25 CALCIUM (test code = 9580704542) 8.8 mg/dL 8.6-10.6 eGFR Calculation (Non-) (test code = 6526102973) mL/min/1.73m2 eGFR Calculation () (test code = 3414703578) mL/min/1.73m2 KARSON (test code = KARSON) Association [...] imaging tests). Lab Interpretation (test code = 57134-2) [facility] HospitalMAGNESIUM2020-11-14 08:25:00* Test Item Value Reference Range Interpretation Comme [facility] MAGNESIUM (test code = 2117406969) 2.0 mg/dL 1.7-2.4 Lab Interpretation (test cod e = 14903-4) [facility] HospitalaPTT (for use with Heparin Drip)2020-09-29 08:02:00* Test Item Value Reference Range Interpretation Comme nts APTT Patient (test code = 3173-2) See_Comment H [Automated kaleo] The system which generated this result transmitted reference range: 26 - 36 Seconds. The reference range was not used to interpret this result as normal/abnormal. Lab Interpretation (test code = 68956-5) Abnormal [facility] GLUCOSE (AUTOMATED)2020-09-29 07:46:00* Test Item Value Reference Range Interpretation Comme nts POCT GLU (test code = 0969898236) 213 mg/dL 70-110 H Lab Interpretation (test cod e = 29660-0) Abnormal [facility] GLUCOSE (AUTOMATED)2020-09-29 04:38:00* Test Item Value Reference Range Interpretation Comme nts POCT GLU (test code = 6447025656) 335 mg/dL 70-110 H Lab Interpretation (test cod e = 87811-9) Abnormal [facility] GLUCOSE (AUTOMATED)2020-09-29 01:41:00* Test Item Value Reference Range Interpretation Comme nts POCT GLU (test code = 1774473096) 326 mg/dL 70-110 H Lab Interpretation (test cod e = 08826-0) [facility] HospitalaPTT (for use with Heparin Drip)2020-09-28 23:01:00* Test Item Value Reference Range Interpretation Comme nts APTT Patient (test code = 3173-2) See_Comment [Automated kaleo] The system which generated this result transmitted reference range: 26 - 36 Seconds. The reference range was not used to interpret this result as normal/abnormal. Lab Interpretation (test code = 50646-9) Normal [facility] GLUCOSE (AUTOMATED)2020-09-28 13:53:00* Test Item Value Reference Range Interpretation Comme nts POCT GLU (test code = 3122632495) 192 mg/dL 70-110 H Lab Interpretation (test cod e = 98462-5) [facility] HospitalTroponin [id number] 11:02:00* Test Item Value Reference Range Interpretation Comme nts TROPONIN I (test code = 6828506948) 0.184 ng/mL See_Comment H [Automated message] The [...] biotin. ? Lab Interpretation (test code = 32334-2) [facility] HospitalLIPID PANEL (98334)(TOTAL CHOLESTEROL, TRIGLYCERIDES, HDL)2020-09-28 10:35:00* Test Item Value Reference Range Interpretation Comme nts CHOL (test code = 4580737157) 150 mg/dL 120-200 HDL (test code = 9163611725) 40 mg/dL >40 L HDLC RATIO (test code = 6620308114) See_Comment [[employer]] The system which generated this result transmitted reference range: <=5.0. The reference range was not used to interpret this result as normal/abnormal. TRIG (test code = 7338136904) 134 mg/dL 30-170 LDL CHOL (test code = 13231-5) 83 mg/dL See_Comment [Automated kaleo] The system which generated this result transmitted reference range: <=160. The reference range was not used to interpret this result as normal/abnormal. VLDL (test code = 7166668018) 27 mg/dL 5-60 Lab Interpretation (test code = 52393-8) [facility] HospitalaPTT (for use with Heparin Drip)2020-09-28 09:57:00* Test Item Value Reference Range Interpretation Comme nts APTT Patient (test code = 3173-2) See_Comment H [Automated kaleo] The system which generated this result transmitted reference range: 26 - 36 Seconds. The reference range was not used to interpret this result as normal/abnormal. Lab Interpretation (test code = 98850-5) [facility] HospitalPOCT GLUCOSE (AUTOMATED)2020-09-28 06:35:00* Test Item Value Reference Range Interpretation Comme [facility] POCT GLU (test code = 7929270262) 271 mg/dL 70-110 H Lab Interpretation (test cod e = 74177-8) [facility] HospitalTroponin [id number] 05:06:00* Test Item Value Reference Range Interpretation Comme [facility] TROPONIN I (test code = 1558335720) 0.189 ng/mL See_Comment H [Automated message] The [...] biotin. ? Lab Interpretation (test code = 50643-7) [facility] HospitalaPTT (for use with Heparin Drip)2020-09-28 03:55:00* Test Item Value Reference Range Interpretation Comme [facility] APTT Patient (test code = 3173-2) See_Comment H [Automated messa ge] The system which generated this result transmitted reference range: 26 - 36 Seconds. The reference range was not used to interpret this result as normal/abnormal. Lab Interpretation (test code = 42765-6) [facility] HospitalCT CHEST PULMONARY WWKGZNHQD1235-89-28 21:42:18HISTORY: Positive d-dimer, rule out P.E. TECHNIQUE: [...] poorlycontrolled diabetes. Please correlate. [facility], Radiant Results InftUser - 09/27/2020 3:43 PM [...] chronic history of poorlycontrolled diabetes. Please correlate. [facility] HospitalLACTATE YTCXLWOPCCSPY6550-13-79 21:42:00* Test Item Value Reference Range Interpretation Comme nts LDH (test code = 1544495086) 678 U/L 300-600 H Lab Interpretation (test cod e = 28446-0) [facility] HospitalCOVID-19 (ID NOW RAPID TESTING)2020-09-27 19:56:00* Test Item Value Reference Range Interpretation Comme nts SARS-CoV-2 Rapid ID NOW (test code = 29476-3) Not Detected Not Detected KARSON (test code = KARSON) ID NOW COVID-19 As say is an isothermal nucleic acid amplification test intended for the qualitative detection of nucleic acid from SARS-CoV-2 viral RNA in nasopharyngeal (SMASH HAND) specimens. It is used under Emergency Use [...] clinically indicated. Lab Interpretation (test code = 28620-4) [facility]* Test Item Value Reference Range Interpretation Comme [facility] APTT Patient (test code = 3173-2) See_Comment [Automated message] The system which generated this result transmitted reference range: 23 - 38 Seconds. The reference range was not used to interpret this result as normal/abnormal. KARSON (test code = KARSON) The [facility] patient population mean normal value for aPTT is 30 seconds. Lab Interpretation (test code = 85634-0) [facility] (PT[facility] / [id number] 19:50:00 * Test Item Value Reference Range Interpretation Comme [facility] PROTIME PATIENT (test code = 5964-2) See_Comment [Automated messa ge] The system which generated this result transmitted reference range: 12.0 - 14.7 Seconds. The reference range was not used to interpret this result as normal/abnormal. INR (test code = 6301-6) Normal INR <1.1; Warfarin Therapeutic range 2.0 to 3.0 or 2.5 to 3.5, depending upon the indications. Lab Interpretation (test code = 50808-0) [facility]Trop[facility] [id number] 19:48:00* Test Item Value Reference Range Interpretation Comme [facility] TROPONIN I (test code = 2407159413) 0.207 ng/mL See_Comment H [Automated message] The [...] biotin. ? Lab Interpretation (test code = 14924-3) [facility] TAW-[id number] 19:46:00* Test Item Value Reference Range Interpretation Comme nts NT-proBNP (test code = 4632295974) 1370 pg/mL See_Comment H [Automated message] The system which generated this result transmitted reference range: <=125. The reference range was not used to interpret this result as normal/abnormal. KARSON (test code = KARSON) Biotin has been reported to cause a negative bias, interpret results relative to patient's use of biotin. Lab Interpretation (test code = 46396-8) [facility] HospitalD-[id number] 19:37:00* Test Item Value Reference Range Interpretation Comments D-DIMER (test code = 1821754272) See_Comment H [Automated message] The system which [...] a diagnosis. Lab Interpretation (test code = 78978-8) [facility] (NA, K, CL, CO2, GLUCOSE, BUN, CREATININE, CA)2020-09-27 19:36:00* Test Item Value Reference Range Interpretation Comme nts NA (test code = 2364728031) 134 mmol/L 135-145 L K (test code = 5028895502) 4.9 mmol/L 3.5-5 CL (test code = 8981836427) 99 mmol/L 98-108 CO2 TOTAL (test code = 1629586643) 30 mmol/L 23-31 AGAP (test code = 3659408539) 2-16 BUN (test code = 2220470900) 22 mg/dL 7-23 GLUCOSE (test code = 5303661130) 216 mg/dL 70-110 H CREATININE (test code = 0240263601) 0.78 mg/dL 0.6-1.25 CALCIUM (test code = 2859621940) 9.3 mg/dL 8.6-10.6 eGFR Calculation (Non-) (test code = 5876208166) mL/min/1.73m2 eGFR Calculation () (test code = 9936688964) mL/min/1.73m2 KARSON (test code = KARSON) Association [...] imaging tests). Lab Interpretation (test code = 41536-1) [facility] (ALB, T.PRO, BILI T, BU/BC, ALT, AST, ALK PHOS)2020-09-27 19:36:00* Test Item Value Reference Range Interpretation Comme nts TOTAL BILI (test code = 8745317939) 1.4 mg/dL 0.1-1.1 H BILI UNCON (test code = 9689554665) 0.8 mg/dL 0.1-1.1 BILI CONJ (test code = 9204945933) 0.0 mg/dL 0-0.3 T PROTEIN (test code = 9252112842) 7.2 g/dL 6.3-8.2 ALBUMIN (test code = 5250007084) 4.2 g/dL 3.5-5 ALK PHOS (test code = 2442229027) 53 U/L 34-122 ALTv (test code = 1742-6) 106 U/L 5-50 H AST(SGOT) (test code = 8774047260) 61 U/L 13-40 H Lab Interpretation (test cod e = 00510-9) [facility] HospitalLipase [id number] 19:35:00* Test Item Value Reference Range Interpretation Comme nts LIPASE (test code = 3156997782) 41 U/L 0-220 Lab Interpretation (test cod e = 80497-1) [facility] HospitalCBC with [id number] 19:19:00* Test Item Value Reference Range Interpretation Comme nts WBC (test code = 6690-2) See_Comment [Automated Roseonlya ge] The system which generated this result transmitted reference range: 4.20 - 10.70 10*3/?L. The reference range was not used to interpret this result as normal/abnormal. RBC (test code = 789-8) See_Comment [Automated Roseonlya ge] The system which generated this result [...] 33.6 g/dL 31.2-35 RDW-SD (test code = 73928-9) 44.4 fL 38.5-51.6 RDW-CV (test code = 788-0) 13.2 % 12.1-15.4 PLT (test code = 777-3) See_Comment [Automated Roseonlya ge] The system which generated this result transmitted reference range: 150 - 328 10*3/?L. The reference range was not used to interpret this result as normal/abnormal. MPV (test code = 88361-7) 11.4 fL 9.8-13 NRBC/100 WBC (test code = 7041802298) See_Comment [Automated me ssage] The system which generated this result transmitted reference range: 0.0 - 10.0 /100 WBCs. The reference range was not used to interpret this result as normal/abnormal. NRBC x10^3 (test code = 2628627830) <0.01 See_Comment [Automated me ssage] The system which generated this result transmitted reference range: 10*3/?L. The reference range was not used to interpret this result as normal/abnormal. GRAN MAT (NEUT) % (test code = 770-8) 60.5 % IMM GRAN % (test code = 5695265551) 0.60 % LYMPH % (test code = 736-9) 27.0 % MONO % (test code = 5905-5) 8.4 % EOS % (test code = 713-8) 2.9 % BASO % (test code = 706-2) 0.6 % GRAN MAT x10^3(ANC) (test code = 9435889661) 4.80 10*3/uL 1.99-6.95 IMM GRAN x10^3 (test code = 9059394123) 0.05 10*3/uL 0-0.06 LYMPH x10^3 (test code = 731-0) 2.14 10*3/uL 1.09-3.23 MONO x10^3 (test code = 742-7) 0.67 10*3/uL 0.36-1.02 EOS x10^3 (test code = 711-2) 0.23 10*3/uL 0.06-0.53 BASO x10^3 (test code = 704-7) 0.05 10*3/uL 0.01-0.09 [facility] Hospital[facility]hest 1 [id number] 19:01:56CHEST PORTABLE ONE VIEW HISTORY:CP, SOB TECHNIQUE: [...] is seen.CONCLUSIONS:1. Mild pulmonary edema and borderline cardiomegalyUnPal[facility]
[2024-12-03] MEDS ORDERED: ALTEPLASE 2 MG/VIAL IV ONE (18:33)
[2024-12-03] MEDS ORDERED: WATER FOR INJ,STERILE 10 ML ONE (18:34)
--- NOTE | 2024-12-03 19:23 | ER ---
Nurse's Notes [facility] Name: Artem Pena Age: 64 yrs Sex: Male : 1960 Arrival Date: 12/03/2024 Time: 17:16 Bed 17 Private MD: Diagnosis: Mechanical complication of PICC line, resolved Presentation: 12/03 18:06 Chief complaint: Patient states: RUE PICC CLOGGED TODAY, INSTALLED THURSDAY. Coronavirus bp screen: At this time, the client does not indicate any symptoms associated with coronavirus-19. Ebola Screen: No symptoms or risks identified at this time. Initial Sepsis Screen: Does the patient meet any 2 criteria? No. Patient's initial sepsis screen is negative. Does the patient have a suspected source of infection? No. Patient's initial sepsis screen is negative. Risk Assessment: Do you want to hurt yourself or someone else? Patient reports no desire to harm self or others. Onset of symptoms was December 03, 2024. 18:06 Method Of Arrival: Wheelchair bp 18:06 Acuity: TANGELA 4 bp Triage Assessment: 18:09 General: Appears in no apparent distress. Behavior is calm, cooperative, appropriate bp for age. Pain: Denies pain. EENT: No deficits noted. Neuro: No deficits noted. Cardiovascular: No deficits noted. Respiratory: No deficits noted. GI: No signs and/or symptoms were reported involving the gastrointestinal system. : No signs and/or symptoms were reported regarding the genitourinary system. Derm: No deficits noted. Musculoskeletal: No deficits noted. Historical: - Allergies: 18:09 Cipro; bp 18:09 Latex; bp 18:09 Lisinopril; bp 18:09 metformin; bp 18:09 Vzcubla-Nwo-Srs Reductase Inhibitors; bp - PMHx: 18:09 Congestive heart failure; diabetes mellitus; Hypertension; Myocardial infarction; bp - PSHx: 18:09 Coronary artery bypass graft; bp - Immunization history:: Adult Immunizations up to date. - Infectious Disease History:: Denies. - Social history:: Smoking status: Patient denies any tobacco usage or history of. Screenin:30 [facility] ED Fall Risk Assessment (Adult) History of falling in the last 3 months, me1 including since admission No falls in past 3 months (0 pts) Confusion or Disorientation No (0 pts) Intoxicated or Sedated No (0 pts) Impaired Gait Yes (1 pt) Mobility Assist Device Used Yes (1 pt) Altered Elimination No (0 pt) Score/Fall Risk Level 0 - 2 = Low Risk Maintained a safe environment, Provided non-skid footwear, Hourly rounding (assess needs \T\ fall precautionary measures) done. Abuse screen: Denies threats or abuse. Nutritional screening: No deficits noted. Tuberculosis screening: No symptoms or risk factors identified. Assessment: 18:30 General: Appears in no apparent distress. comfortable, well groomed, well developed, me1 well nourished, Behavior is calm, cooperative, appropriate for age, Reports RUE PICC CLOGGED TODAY, INSTALLED THURSDAY. Pain: Denies pain. Neuro: Level of Consciousness is awake, alert, obeys commands, Oriented to person, place, time, situation, Appropriate for age. Cardiovascular: Patient's skin is warm and dry. Respiratory: Airway is patent Respiratory effort is even, unlabored, Respiratory pattern is regular, symmetrical. GI: No signs and/or symptoms were reported involving the gastrointestinal system. : No signs and/or symptoms were reported regarding the genitourinary system. EENT: No signs and/or symptoms were reported regarding the EENT system. Derm: Wound noted right foot Wound is non healing wound, on halfway antibiotics at home. Musculoskeletal: No signs and/or symptoms reported regarding the musculoskeletal system. Vital Signs: 18:06 BP 145 / 74; Pulse 77; Resp 16; Temp 98.1; Pulse Ox 99% ; bp 18:30 BP 149 / 81; Pulse 71; Resp 18; Pulse Ox 100% ; me1 19:30 BP 144 / 64; Pulse 69; Resp 16; Temp 98.2; Pulse Ox 97% ; me1 ED Course: 17:20 Patient arrived in ED. sj2 17:26 Martha Diez PA-C is PHCP. sb4 17:26 Gregorio Salvador MD is Attending Physician. sb4 18:09 Triage completed. bp 18:09 Arm band placed on. bp 18:30 Mayra Jett, RA is Primary Nurse. me1 18:30 Patient has correct armband on for positive identification. Bed in low position. Call me1 light in reach. Side rails up X2. Provided Education on: POC. Verbalized understanding.. Client placed on continuous cardiac and pulse oximetry monitoring. NIBP monitoring applied. Pulse ox on. NIBP on. 18:30 No provider procedures requiring assistance completed. Accessed PICC line. double lumen me1 purple picc to right upper arm. 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 me1 Administered Medications: 18:40 Drug: Cathflo Activase IV Thrombolytics 2 mg IV Thrombolytics once; into each catheter me1 lumen, may repeat once {Note: in each lumen, double lumen purple picc..} Route: IV Thrombolytics; 19:52 Follow up: Response: No adverse reaction; Marked relief of symptoms me1 19:57 Follow up: Response: No adverse reaction me1 19:32 CANCELLED (wrong orderr): heparin outmw839 units IVP once vc1 19:33 Drug: HEParin Flush IVP 500 units IVP once {Note: Pt to administer after antibiotic vc1 infusion at home tomorrow.} Route: IVP; Site: right antecubital; 19:52 Follow up: Response: No adverse reaction me1 Medication: 18:30 VIS not applicable for this client. me1 Outcome: 19:22 Discharge ordered by . sb4 19:56 Discharged to home via wheelchair, with significant other, me1 19:56 Condition: stable 19:56 Discharge instructions given to patient, significant other, Instructed on discharge instructions, follow up and referral plans. medication usage, Demonstrated understanding of instructions, follow-up care, medications, Prescriptions given X 1, 19:57 Patient left the ED. me1 Signatures: Isac Madison RN RN bp Maddison Thomas RN RN vc1 Martha Diez, PA-C PA-C sb4 Mayra Jett RN RN me1 Elizabet Walker sj2 Corrections: (The following items were deleted from the chart) 19:35 19:33 HEParin Flush IVP 500 units IVP in right antecubital vc1 vc1 19:52 18:06 Chief complaint: Patient states: RUE PICC CLOGGED TODAY, INSTALLED THURSDAY bp me1
--- NOTE | 2024-12-03 19:23 | EDPHYS ---
Physician Documentation [facility] Name: Artem Pena Age: 64 yrs Sex: Male : 1960 Arrival Date: 12/03/2024 Time: 17:16 Bed 17 Private MD: ED Physician Gregorio Salvador HPI: 12/03 18:44 This 64 yrs old Male presents to ER via Wheelchair with complaints of CLOGGED PIC LINE. sb4 18:44 Patient states that he had a PICC line placed 6 days ago for home IV antibiotics for sb4 osteomyelitis of his right foot. States that he has used a PICC line in the past so he administers his own antibiotics. States that this time around, he was not prescribed any heparin flushes so both ports of his PICC line are now clogged. He denies any pain or discomfort in the area. Historical: - Allergies: 18:09 Cipro; bp 18:09 Latex; bp 18:09 Lisinopril; bp 18:09 metformin; bp 18:09 Edonfwu-Auz-Waq Reductase Inhibitors; bp - PMHx: 18:09 Congestive heart failure; diabetes mellitus; Hypertension; Myocardial infarction; bp - PSHx: 18:09 Coronary artery bypass graft; bp - Immunization history:: Adult Immunizations up to date. - Infectious Disease History:: Denies. - Social history:: Smoking status: Patient denies any tobacco usage or history of. ROS: 18:44 Constitutional: Negative for fever, chills, and weight loss, sb4 18:44 All other systems are negative, Exam: 18:44 Constitutional: This is a well developed, well nourished patient who is awake, alert, sb4 and in no acute distress. Head/Face: Normocephalic, atraumatic. Eyes: Extra-ocular motions intact. Periorbital areas with no swelling, redness, or edema. ENT: Mucous membranes moist. 18:44 Skin: Exam negative for erythema induration, any evidence of obvious injury, poor turgor, swelling, Vital Signs: 18:06 BP 145 / 74; Pulse 77; Resp 16; Temp 98.1; Pulse Ox 99% ; bp 18:30 BP 149 / 81; Pulse 71; Resp 18; Pulse Ox 100% ; me1 19:30 BP 144 / 64; Pulse 69; Resp 16; Temp 98.2; Pulse Ox 97% ; me1 MDM: 17:38 Medical Screening Exam initiated sb4 19:24 Data reviewed: vital signs, nurses notes, and as a result, I will discharge patient. sb4 Counseling: I had a detailed discussion with the patient and/or guardian regarding the historical points, exam findings, and any diagnostic results supporting the discharge/admit diagnosis, the need for outpatient follow up, a general surgeon, to return to the emergency department if symptoms worsen or persist or if there are any questions or concerns that arise at home. ED course: PICC line is functioning properly after cathflow administration. will discharge with 7 day supply of heparin lock. Administered Medications: 18:40 Drug: Cathflo Activase IV Thrombolytics 2 mg IV Thrombolytics once; into each catheter me1 lumen, may repeat once {Note: in each lumen, double lumen purple picc..} Route: IV Thrombolytics; 19:52 Follow up: Response: No adverse reaction; Marked relief of symptoms me1 19:57 Follow up: Response: No adverse reaction me1 19:32 CANCELLED (wrong orderr): heparin chdqu138 units IVP once vc1 19:33 Drug: HEParin Flush IVP 500 units IVP once {Note: Pt to administer after antibiotic vc1 infusion at home tomorrow.} Route: IVP; Site: right antecubital; 19:52 Follow up: Response: No adverse reaction me1 Disposition Summary: 12/03/24 19:22 Discharge Ordered Notes: Location: Home sb4 Problem: new sb4 Symptoms: have improved sb4 Condition: Stable sb4 Diagnosis - Mechanical complication of PICC line, resolved sb4 Followup: sb4 - With: Private Physician - When: 1 week - Reason: Recheck today's complaints, Re-evaluation by your physician Discharge Instructions: - Discharge Summary Sheet sb4 - PICC Home Care Guide sb4 Forms: - Patient Portal Instructions sb4 - Leadership Thank You Letter sb4 Prescriptions: - heparin lock flush (porcine) - inject 500 units INTRAVENOUS route Use as Directed adminster as lock via PICC sb4 after each use; 7 Applicator; Refills: 0, Product Selection Permitted Addendum: 12/07/2024 07:28 Co-signature as Attending Physician, Gregorio Salvador MD I agree with the assessment and c ferguson plan of care. Signatures: Gregorio Salvador MD MD cha Peltier, Brian, RN RN bp Maddison Thomas RN RN vc1 Martha Diez PA-C PA-C sb4 Mayra Jett RN RN me1 Corrections: (The following items were deleted from the chart) 12/03 19:32 19:22 HEParin Flush IVP 100 units IVP once ordered. sb4 vc1
[2024-12-03] MEDS ORDERED: HEPARIN 500 UNIT/5 ML SYR IV ONE (19:25)
[2024-12-03 20:04] VITALS: BP 144/64; TEMP 98.2; O2SAT 97
== END 2024-12-03 19:57 | disposition home or self-care (01) ==
LOC: ER 17:16
DX: T82.594A Other mechanical complication of infusion catheter, initial encounter (principal); E11.9 Type 2 diabetes mellitus without complications; I10 Essential (primary) hypertension; I25.2 Old myocardial infarction; Z95.1 Presence of aortocoronary bypass graft; Z88.1 Allergy status to other antibiotic agents; Z88.8 Allergy status to other drugs, medicaments and biological substances; Z91.040 Latex allergy status
CPT/HCPCS: 92977; 96374; 99291; J2997; J1642

== ENCOUNTER 2025-01-31 13:16 | Emergency (ER) | payer OTHER, BC ==
--- OUTSIDE RECORDS SUMMARY | 2025-01-31 13:25 | XMS REPORT | Continuity of Care Document ---
Author Name Unknown Address [address] [facility] [address] [id number] [facility] Address [address] [facility] [address] [place] [address] Care Team Providers Care Production Quality Analyst Name Role Phone Hannah Muñoz MD, Carlos Aguirre Primary Care [facility] KJ LOPEZ Attending Clinician Unavailable MOI ESTRADA Attending Clinician Unavailable MOI ESTRADA Attending Clinician MK Martines Attending Clinician KJ Baig Attending Clinician Unavailable Collin Attending Clinician Unavailable Paulette Harris MA Attending Clinician AIMEE Wood Attending Clinician Unanikki Barrow RN, Fany Attending Clinician Unavailab le Doctor Unassigned, [place] Attending Clinician U JUAREZ Carbajal Attending Clinician RAEANN Howe Attending Clinician Rivas Gao MD, Juarez Vásquez Attending Clinician + Huy Judge DO Attending Clinician Draw, [facility] Attending Clinician Rivas Crouch FACULTY ADMINISTRATOR, Blaise Guillen Attending Clinician [phone] BLAISE CROUCH Attending Clinician Rivas Stephens RN, Cristina Sheridan Attending Clinician [phone] Petrona Padilla Attending Clinician [phone] Maya Jessica RN Attending Clinician [phone] Jeramy BE, Elisabet Rinaldi Attending Clinician [phone] Jack ASENCIO, Oleksandr Braswell Attending Clinici an Collin Admitting Clinician AIMEE Ramsey Admitting Clinician Malini Estrada MD, Moi Admitting Clinician [phone] Jack ASENCIO, Oleksandr Braswell Admitting Clinici an Payers Payer Name Policy Type Policy Number Effective Date Expirati on Date Source [facility] [id number] 2021 00:00:00 2024 00:00:00 OTHER CI [id number] [place] [employer] Goomeo [id number] 2023 00:00:00 [place] [id number] 2023 00:00:00 JEROME REYNOLDS FROM [facility] ([facility] [id number] Problems Condition Name Condition Details Condition Category [...] for Malignant Neoplasm of Prostate Problem Active 6- 00:00: 00 [facility] Secondary polycythem ia Secondary Polycythem ia Problem Active 6 00:00: 00 [facility] Hypernatre keenan Hypernatre keenan Problem Active 6 00:00: 00 [facility] Morbid obesity Morbid Obesity Problem Active 07-25 00:00: 00 [facility] 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 Due to Type 2 Diabetes Mellitus Problem Active 07-25 00:00: 00 [facility] Bilateral cataracts Bilateral Cataracts Problem Active 3-04 00:00: 00 [facility] Long-term current use of insulin Long-term Current Use of Insulin Problem Active 3-04 00:00: 00 [facility] 5 MONTH FOLLOW UP 5 MONTH FOLLOW UP Active 12/27/2021 [facility] Diagnosis Active 2-11 00:00: 00 2022-07-18 16:05:00 [place] I25.10 ECHO COMPLETE I25.10 ECHO COMPLETE Active 09/10/2021 [facility] Diagnosis Active 2020-11 0-26 00:00: 00 2021-12-04 08:34:00 [place] 3 MONTHS FOLLOW UP/ECHO 3 MONTHS FOLLOW UP/ECHO Active 08/29/2021 [facility] Diagnosis Active 2020-11 0-14 00:00: 00 2021-12-27 10:07:00 [place] P22.0 - RESPIRATOR Y DISTRESS SYNDROME P22.0 - RESPIRATOR Y DISTRESS SYNDROME Active 07/23/2021 [facility] Diagnosis Active 07-23 00:01: 00 2021-07-23 14:01:00 [place] SOB SOB Active 07/16/2021 [facility] Diagnosis Active 07-16 00:00: 00 2021 15:20:00 [place] N/A N/A Active 07/16/2021 [facility] Diagnosis Active 8 00:00: 00 2021-07-28 12:53:00 [place] Aspartate aminotrans ferase serum level above reference range Aspartate Aminotrans ferase Serum Level above Reference Range Problem Active 06-23 00:00: 00 [facility] I25.10 - ATHSCL HEART DISEASE OF [place] I25.10 - ATHSCL HEART DISEASE OF [place] Active 06/19/2021 [facility] Diagnosis Active 8 00:01: 00 2021-06-26 13:26:00 [place] I25.10 I25.10 Active 06/19/2021 [facility] Diagnosis Active 06-19 00:00: 00 2021-06-21 09:32:00 [place] Foot callus Foot Callus Problem Active 8 00:00: 00 [facility] Body mass index 40+ - severely obese Body Mass Index 40+ - Severely Obese Problem Active 06-18 00:00: 00 [facility] Atheroscle rosis of coronary artery without angina pectoris Atheroscle rosis of Coronary Artery without Angina Pectoris Problem Active 8 00:00: 00 [facility] Type 2 diabetes mellitus Type 2 Diabetes Mellitus Problem Active 8 00:00: 00 [facility] Hyperlipid emia Hyperlipid emia Problem Active 8 00:00: 00 [facility] Hypertensi ve disorder Hypertensi ve Disorder Problem Active 8 00:00: 00 [facility] Atrial fibrillati on Atrial Fibrillati on Problem Active 8 00:00: 00 [facility] Longstandi ng persistent atrial fibrillati on Longstandi ng persistent atrial fibrillati on Disease Active 06-05 00:00: 00 [facility] Anticoagul ation management encounter Anticoagul ation management encounter Disease Active 06-05 00:00: 00 [facility] Coronary artery disease involving [place] heart without angina pectoris Coronary artery disease involving [place] heart without angina pectoris Disease Active 06-05 00:00: 00 [facility] Obstructiv e sleep apnea Obstructiv e sleep apnea Disease Active 06-05 00:00: 00 [facility] Essential hypertensi on Essential hypertensi on Disease Active 06-05 00:00: 00 [facility] R07.9,I25. 10,I25.10, I50.22 R07.9,I25. 10,I25.10, I50.22 Active 05/29/2021 [place] Diagnosis Active 05-29 00:00: 00 2021-06-05 10:50:00 [place] NSTEMI (non-ST elevated myocardial infarction ) NSTEMI (non-ST elevated myocardial infarction ) Disease Active 05-23 00:00: 00 [facility] Acute congestive heart failure Acute congestive heart failure Disease Active 05-23 00:00: 00 [facility] New onset atrial fibrillati on New onset atrial fibrillati on Disease Active 05-23 00:00: 00 [facility] 6WK FOLLOW UP 6WK FOLLOW UP Active 05/23/2021 [facility] Diagnosis Active 05-23 00:00: 00 2021-08-29 14:00:00 [place] I50.22 I25.10 I48.91 I50.22 I25.10 I48.91 Active 05/08/2021 [facility] Diagnosis Active 05-08 00:00: 00 2021-05-22 08:25:00 [place] I25.10,I50 .22,I48.91 I25.10,I50 .22,I48.91 Active 04/02/2021 [place] Diagnosis Active 04-02 00:00: 00 2021-04-18 07:40:00 [place] 2 MO F/U 2 MO F/U Active 03/22/2021 [facility] Diagnosis Active 03-22 00:00: 00 2021-05-23 10:08:00 [place] NEW PT/DR. ROSITA POLO FT/CHF/UNS PE NEW PT/DR. ROSITA POLO FT/CHF/UNS PE Active 03/04/2021 [facility] Diagnosis Active 2021-0 4-19 00:00: 00 2021-03-22 10:48:00 [place] Morbid obesity with body mass index of 40.0-49.9 Morbid obesity with body mass index of 40.0-49.9 Disease Active 2019-11 00:00: 00 [facility] Class 3 severe obesity due to excess calories with body mass index (BMI) of 40.0 to 44.9 in adult Class 3 severe obesity due to excess calories with body mass index (BMI) of 40.0 to 44.9 in adult Disease Active 2019-11 00:00: 00 [facility] Chest pain Chest pain Disease Active 2019-11 00:00: 00 [facility] Congestive heart failure (disorder) Congestive heart failure (disorder) Resolved Problem 12/29/2021 [facility], Cammy Alcantar [facility], [facility], [place] Problem Resolve d 2021-12-29 23:48:14 [place] ATHSCL HEART DISEASE OF [place] CORONARY ATHSCL HEART DISEASE OF [place] CORONARY Active [facility] Diagnosis Active 2021-07-28 12:53:00 [place] Z95.1 - PRESENCE OF AORTOCORON NAVNEET BYPA Z95.1 - PRESENCE OF AORTOCORON NAVNEET BYPA Active NATALIYA Drake,M NATALIYA [facility] Diagnosis Active 2021-12-23 13:15:00 [place] [...] e Active 2023-11 0 00:00: 00 [place] Henryann Epic Metformi n Propensi ty to adverse reaction s Active Nausea and/or Vomiting 2019-11 00:00: 00 [facility] METFORMI N DRUG INGREDI Active N/V 2019-11 00:00: 00 [facility] Metformi n Allergy to substanc e Active Nausea And Vomiting 2019-11 00:00: 00 [facility] Lisinopr il Propensi ty to adverse reaction s Active Cough 2019-11 00:00: 00 [facility] LISINOPR IL DRUG INGREDI Active COUGH 2019-11 00:00: 00 [facility] NO KNOWN ALLERGIE S Drug Class Active [facility] Lisinopr il Allergy to substanc e Active [facility] Trulicit y Allergy to substanc e Active Nausea, Vomiting [facility] Social History Social Habit Start Date Stop Date Quantity Comments Source Gender identity 2024-02-06 15:56:21 Identifies as male gender (finding) [facility] Max [facility] Sexual orientation [facility] [place] Exposure to SARS-CoV-2 (event) Not sure [facility] History of Social function 2024-03-08 00:00:00 2024-03-08 00:00:00 [facility] Alcoholic beverage intake 2021-12-17 00:00:00 2021-12-17 00:00:00 Ex-drinker (finding) [facility] Alcohol intake 2021-08-08 00:00:00 2021-08-08 00:00:00 Ex-drinker (finding) [facility] Social History 2021-05-23 15:18:29 2021-05-23 15:18:29 [facility] [place] Tobacco use and exposure 2021-05-23 00:00:00 2021-05-23 00:00:00 Smokeless tobacco non-user [facility] Sex Assigned At 1960 00:00:00 1960 00:00:00 [facility] Smoking Status Start Date Stop Date Source Never smoked tobacco Tex Swenson Tobacco smoking consumption unknown [facility] Medications Ordered Medication Name Filled Medication Name [...] Daily, # 90 tab, 3 Refill(s), Pharmacy: [facility], 193.04, cm, 03/08/24 16:57:00 [...] Daily, # 90 tab, 0 Refill(s), Pharmacy: [facility], 193.04, cm, 09/01/23 9:58:00 CDT, Height, 135.318, kg, 09/01/23 9:58:00 CDT, Weight [place] Epic losartan (Cozaar) 25 MG tablet losartan (Cozaar) 25 MG tablet 2022-11 2-14 00:00: 10-06 00:00 :00 No = 0.5 tab, PO, Daily, # 45 tab, 2 Refill(s), Pharmacy: [facility], 193.04, cm, 09/01/23 9:58:00 CDT, Height, 135.318, kg, 09/01/23 9:58:00 CDT, Weight Memoria l Max Epic evolocumab (Repatha SureClick) 140 MG/ML injection evolocumab (Repatha SureClick) 140 MG/ML injection 2022-11 0- 00:00: 00 Yes 140mg 140 mg = 1 mL, SUB-Q, Q14D, # 6 mL, 3 Refill(s), Pharmacy: [facility], 193.04, cm, 09/01/23 9:58:00 CDT, Height, 135.318, kg, 09/01/23 9:58:00 CDT, Weight Memoria l Max Epic metoprolol succinate XL (Toprol-XL) 50 MG 24 hr tablet metoprolol succinate XL (Toprol-XL) 50 MG 24 hr tablet 08-07 00:00: 00 10-06 00:00 :00 No = 1 tab, PO, Daily, # 90 tab, 2 Refill(s), Pharmacy: [facility], 193.04, cm, 03/02/23 17:38:00 CDT, Height, 135.455, kg, 03/02/23 17:38:00 CDT, Weight Memoria l Max Epic furosemide (Lasix) 40 MG tablet furosemide (Lasix) 40 MG tablet 3-12 00:00: 00 10-06 00:00 :00 No = 1 tab, PO, Daily, # 180 tab, 2 Refill(s), Pharmacy: [facility], 193.04, cm, 08/26/22 15:09:00 CDT, Height, 141.591, kg, 08/26/22 15:09:00 CDT, Weight [place] Epic 24 HR Metoprolol Tartrate 100 MG Extended Release Tablet [Toprol] 2021-0 - 17:36: 00 Yes 100 mg = 1 tab, PO, Daily, # 90 tab, 3 Refill(s), Pharmacy: [facility], 193.04, cm, 08/29/21 17:30:00 CDT, Height, 157.727, kg, 08/29/21 17:30:00 CDT, Weight [place] atorvastati n 20 MG Oral Tablet [Lipitor] 12-27 17:36: 00 Yes 20 mg = 1 tab, PO, Bedtime, # 90 tab, 3 Refill(s), Pharmacy: [facility], 193.04, cm, 08/29/21 17:30:00 CDT, Height, 157.727, kg, 08/29/21 17:30:00 CDT, Weight Memoria pearl Santana losartan 25 mg oral tablet 12-27 17:34: 00 Yes 25 mg = 1 tab, PO, Daily, # 90 tab, 3 Refill(s), Pharmacy: [facility], 193.04, cm, 08/29/21 17:30:00 CDT, Height, 157.727, kg, 08/29/21 17:30:00 CDT, Weight Memshyla Santana AMIODarone 200 mg oral tablet 12-27 17:30: 00 Yes 200 mg = 1 tab, PO, Daily, # 90 tab, 3 Refill(s), Pharmacy: [facility], 193.04, cm, 08/29/21 17:30:00 CDT, Height, 157.727, kg, 08/29/21 17:30:00 CDT, Weight [place] apixaban 5 MG Oral Tablet [Eliquis] 12-27 17:30: 00 Yes 5 mg = 1 tab, PO, Q12H, # 180 tab, 3 Refill(s), Pharmacy: [facility], 193.04, cm, 08/29/21 17:30:00 CDT, Height, 157.727, kg, 08/29/21 17:30:00 CDT, Weight Memoria pearl Max Furosemide 40 MG Oral Tablet 12-27 17:30: 00 Yes 40 mg = 1 tab, PO, BID Diuretic, # 180 tab, 3 Refill(s), Pharmacy: [facility], 193.04, cm, 08/29/21 17:30:00 [...] Bedtime, # 12 mL, 3 Refill(s) [place] Epic apixaban (Eliquis) 5 MG tablet 12-17 11:31: 02 Yes 5mg Q.5D Take 5 mg by mouth 2 (two) times a day. [facility] empaglifloz in (Jardiance) 25 MG 12-17 11:31: 02 Yes 1{tbl} QD Take 1 tablet by mouth 1 (one) time each day. [facility] levothyroxi ne (Synthroid, Levoxyl) 50 MCG tablet 12-17 11:31: 02 Yes 50ug Take 50 mcg by mouth 1 (one) time each day before breakfast. [facility] losartan 25 mg oral tablet 2020-11 20:40: 00 Yes 25 mg = 1 tab, PO, Daily, # 90 tab, 1 Refill(s), Pharmacy: [facility], 193.04, cm, 07/25/21 3:56:00 CDT, Height, 161.534, kg, 07/23/21 9:12:00 CDT, Weight Halioria pearl Santana Furosemide 40 MG Oral Tablet 2020-11 20:38: 00 Yes 40 mg = 1 tab, PO, BID Diuretic, # 180 tab, 3 Refill(s), Pharmacy: [facility], 193.04, cm, 07/25/21 3:56:00 CDT, Height, 161.534, kg, 07/23/21 9:12:00 CDT, Weight Memoria pearl Santana AMIODarone 200 mg oral tablet 2020-11 20:38: 00 Yes 400 mg = 2 tab, PO, BID, # 360 tab, 3 Refill(s), Pharmacy: [facility], 193.04, cm, 07/25/21 3:56:00 CDT, Height, 161.534, kg, 07/23/21 9:12:00 CDT, Weight Memoria pearl Santana clopidogrel 75 mg oral tablet 2020-11 20:37: 00 Yes 75 mg = 1 tab, PO, Daily, # 90 tab, 3 Refill(s), Pharmacy: [facility], 193.04, cm, 07/25/21 3:56:00 CDT, Height, 161.534, kg, 07/23/21 9:12:00 CDT, Weight [place] kang Max No known medications 08-08 09:14: 13 No No known medication s [facility] levothyroxi ne (Synthroid, Levoxyl) 50 MCG tablet 08-08 09:14: 13 Yes 50ug Take 50 mcg by mouth 1 (one) time each day before breakfast. [facility] apixaban (Eliquis) 5 MG tablet 08-08 09:10: 00 Yes 5mg Q.5D Take 5 mg by mouth 2 (two) times a day. [facility] empaglifloz in (Jardiance) 25 MG 08-08 09:10: 00 Yes 1{tbl} QD Take 1 tablet by mouth 1 (one) time each day. [facility] Jardiance 07-30 14:00: 00 No Notes: (Same as: Jardiance) [place] Lipitor 07-30 02:00: 00 No Notes: (Same as: Lipitor) [place] potassium chloride 20 mEq oral tablet, extended [...] s with feeding tube less than 14 Pakistani (Dobhoff, J-tube etc) and pediatric and patients. [place] Sant[place] Furosemide 07-29 21:00: 00 No Notes: (Same as: Lasix) May cause GI upset. Give with food or milk. [place] tramadol hydrochlori de 50 MG Oral Tablet 07-29 17:22: 00 Yes 50 mg = 1 tab, PO, Q6H, # 10 tab, 0 Refill(s), Pharmacy: [facility], 193.04, cm, 07/25/21 3:56:00 CDT, Height, 161.534, kg, 07/23/21 9:12:00 CDT, Weight Halishyla pearl Santana levothyroxi ne 50 mcg (0.05 mg) oral tablet 07-29 15:04: 00 Yes 50 microgram = 1 tab, PO, Q630AM, # 30 tab, 0 Refill(s), Pharmacy: [facility], 193.04, cm, 07/25/21 3:56:00 CDT, Height, 161.534, kg, 07/23/21 9:12:00 CDT, Weight [place] sacubitril 24 MG / valsartan 26 MG Oral Tablet [Entresto] 07-29 15:04: 00 Yes 1 tab, PO, Q12H, # 60 tab, 0 Refill(s), Pharmacy: [facility], 193.04, cm, 07/25/21 3:56:00 CDT, Height, 161.534, kg, 07/23/21 9:12:00 CDT, Weight Halioria pearl Santana tamsulosin 0.4 mg oral capsule 07-29 15:04: 00 Yes 0.4 mg = 1 cap, PO, After Breakfast, # 30 cap, 0 Refill(s), Pharmacy: [facility], 193.04, cm, 07/25/21 3:56:00 CDT, Height, 161.534, kg, 07/23/21 9:12:00 CDT, Weight Halioria pearl Santana Furosemide 40 MG Oral Tablet 07-29 15:03: 00 Yes 40 mg = 1 tab, PO, BID Diuretic, # 60 tab, 0 Refill(s), Pharmacy: [facility], 193.04, cm, 07/25/21 3:56:00 CDT, Height, 161.534, kg, 07/23/21 9:12:00 CDT, Weight Memoria pearl Santana carvedilol 6.25 mg oral tablet 07-29 15:03: 00 Yes 6.25 mg = 1 tab, PO, Q12H, # 60 tab, 0 Refill(s), Pharmacy: [facility], 193.04, cm, 07/25/21 3:56:00 CDT, Height, 161.534, kg, 07/23/21 9:12:00 CDT, Weight Memoria pearl Santana clopidogrel 75 mg oral tablet 07-29 15:03: 00 Yes 75 mg = 1 tab, PO, Daily, # 60 tab, 0 Refill(s), Pharmacy: [facility], 193.04, cm, 07/25/21 3:56:00 CDT, Height, 161.534, kg, 07/23/21 9:12:00 CDT, Weight Memoria l Max ferrous sulfate 325 MG Oral Tablet 07-29 15:03: 00 Yes 325 mg = 1 tab, PO, Daily, # 30 tab, 0 Refill(s), Pharmacy: [facility], 193.04, cm, 07/25/21 3:56:00 CDT, Height, 161.534, kg, 07/23/21 9:12:00 CDT, Weight [place] apixaban 5 mg oral tablet 07-29 15:02: 00 Yes 5 mg = 1 tab, PO, Q12H, For Atrial Fibrillati on, # 60 tab, 0 Refill(s), Pharmacy: [facility], 193.04, cm, 07/25/21 3:56:00 CDT, Height, 161.534, kg, 07/23/21 9:12:00 CDT, Weight [place] AMIODarone 200 mg oral tablet 07-29 15:01: 00 Yes 400 mg = 2 tab, PO, BID, # 90 tab, 0 Refill(s), Pharmacy: [facility], 193.04, cm, 07/25/21 3:56:00 CDT, Height, 161.534, kg, 07/23/21 9:12:00 CDT, Weight [place] Plavix 07-29 14:00: 00 No Notes: (Same As: Plavix) [place] Sant[place] ferrous sulfate 07-29 14:00: 00 No Notes: Give with food. iron elemental [id number] as ferrous sulfate Dose=___mg elemental iron Tex [...] s with feeding tube less than 14 [place] (Dobhoff, J-tube etc) and pediatric and patients. Halishyla Santana Lasix 07-29 02:00: 00 No Notes: (Same as: Lasix) Tex pearl Santana carvedilol (Coreg) 6.25 MG tablet 07-29 00:00: 00 Yes 1{tbl} Q12H Take 1 tablet by mouth every 12 (twelve) hours. [facility] clopidogrel (Plavix) 75 MG tablet 07-29 00:00: 00 Yes 1{tbl} QD Take 1 tablet by mouth 1 (one) time each day. [facility] tamsulosin (Flomax) 0.4 MG 24 hr capsule 07-29 00:00: 00 Yes 1{capsu le} QD Take 1 capsule by mouth 1 (one) time each day. [facility] traMADol (Ultram) 50 MG tablet 07-29 00:00: 00 Yes 1{tbl} Q6H Take 1 tablet by mouth every 6 (six) hours. [facility] Lasix 07-28 21:00: 00 No Notes: (Same [...] s with feeding tube less than 14 [place] (Dobhoff, J-tube etc) and pediatric and patients. [...] 36 hours of MIKE inhibitors Tex kang Max BD Normal Saline Flush 07-26 21:52: 00 No Notes: (Same as: BD Posiflush) [place] Henryann Sodium Chloride 0.9% IV 07-26 21:52: 00 No 250 mL, Route: IVPB, Start date: 07/26/21 16:52:00 CDT, Duration: 30 day, Stop date: 08/25/21 16:51:00 CDT, PRN Line Flush, 0 [place] Sant[place] heparin sodium, porcine 2500 UNT/ML Injectable Solution 07-26 21:00: 00 No Notes: porcine heparin [place] Henryann Losartan 07-26 20:27: 00 No 25 mg, Route: PO, Daily, Dosing Weight 161.534, kg, Priority: NOW, Start date: 07/26/21 15:27:00 CDT, Duration: 30 day, Stop date: 08/25/21 9:00:00 CDT Tex pearl Santana Lasix 07-26 18:49: 00 No Notes: (Same as: Lasix) [place] Henryann Insulin Lispro 07-26 16:30: 00 No Notes: (Same as: Humalog) Roll in palms of hands gently; Do not shake vigorously . WASTE: F/P - Black; E - Municipal Trash Bin Stable for 28 days at room temperatur e. Expires in days from ____Date [place] Henryann carvedilol 07-26 14:29: 00 No Notes: Give with food. (Same As: Coreg) Halishyla pearl Santana Insulin Glargine 07-26 14:00: 00 No [...] day, Stop date: 08/24/21 17:42:00 CDT, 0 eTx Santana Insulin Lispro 07-25 22:43: 00 No [...] date: 07/25/21 10:48:00 CDT Tex Santana Ipratropium [place] 0.2 MG/ML Inhalant Solution 07-25 15:06: 00 [...] every 72 hours (Same as: Transderm- Scop) eTx Santana Vasopressin (MCC) 07-25 02:46: 00 No [...] Size: 25 gm Product Wasted: ___ gm eTx Santana DDAVP 07-24 21:00: 00 No Notes: [...] No Notes: Use the following cdm for schs5ttc. Tex Santana vecuronium (ANES) 07-24 20:20: 00 [...] Notes: (Same as: Mag-Ox 400) Magnesium oxide 148ad=283k g elemental magnesium Dose=____m g magnesium oxide [...] Stop date: 07/24/21 14:13:00 CDT [place] sodium chloride (ANES) 48 mL + dexmedetomi dine (ANES) 200 microgram 07-24 18:01: 00 No Route: IV, Drug form: INJ, Start date: 07/24/21 13:01:00 CDT, Stop date: 07/24/21 14:01:00 CDT [place] Santana irrigation solution (ANES) 1000 mL 07-24 [...] ONCE, Stop date: 07/24/21 10:35:00 CDT Memshyla eparl Max midazolam (ANES) 07-24 15:02: 00 No Route: IV, Drug form: SOLN, ONCE, Stop date: 07/24/21 10:02:00 CDT [place] fentaNYL (ANES) 07-24 15:02: 00 No Route: IV, Drug form: INJ, ONCE, Stop date: 07/24/21 10:02:00 CDT Memshyla Santana vecuronium (ANES) 07-24 15:02: 00 No Route: IV, Drug form: INJ, ONCE, Stop date: 07/24/21 10:02:00 CDT Memshyla Santana AMIODarone (ANES) 900 mg 07-24 14:08: [...] by mouth 1 (one) time each day. [facility] apixaban (Eliquis) 5 MG tablet 07-16 14:21: 39 Yes 5mg Q.5D Take 5 mg by mouth 2 (two) times a day. [facility] Insulin Regular Human (RELION R IJ) 07-16 14:21: 11 07-16 00:00 :00 No 20U Q.5D Inject 20 Units as directed 2 (two) times a day. [facility] empaglifloz in (Jardiance) 25 MG 07-16 09:23: 03 Yes 1{tbl} QD Take 1 tablet by mouth 1 (one) time each day. [facility] apixaban (Eliquis) 5 MG tablet 07-16 09:21: 39 Yes 5mg Q.5D Take 5 mg by mouth 2 (two) times a day. [facility] Ozempic, 0.25 or 0.5 MG/DOSE, 2 MG/1.5ML solution pen-injecto r 07-09 00:00: 00 Yes .5mg Inject 0.5 mg under the skin 1 (one) time per week. [facility] insulin degludec (Tresiba FlexTouch) 200 UNIT/ML injection 06-18 00:00: 00 Yes 38U QD Inject 38 Units under the skin 1 (one) time each day. [facility] semaglutide (Ozempic, 0.25 or 0.5 MG/DOSE,) 2 MG/1.5ML solution pen-injecto r 06-18 00:00: 00 Yes .5mg 0.5 mg. [facility] insulin NPH-insulin regular (NovoLIN) (70-30) 100 UNIT/ML injection 06-11 14:25: 25 Yes Inject under the skin 2 (two) times a day before meals. [facility] apixaban (Eliquis) 5 MG tablet 06-11 14:25: 25 Yes 5mg Q.5D Take 5 mg by mouth 2 (two) times a day. [facility] Insulin Regular Human (RELION R IJ) 06-11 14:25: 25 Yes 20U Q.5D Inject 20 Units as directed 2 (two) times a day. [facility] Insulin NPH Isophane & Regular (NOVOLIN 70/30 SC) 06-11 14:21: 45 06-11 00:00 :00 No Inject under the skin. [facility] insulin NPH-insulin regular (NovoLIN) (70-30) 100 UNIT/ML injection 06-11 09:25: 25 Yes Inject under the skin 2 (two) times a day before meals. [facility] Sodium Chloride 0.9% IV 750 mL 06-05 17:42: 00 No 750 mL, Rate: 75 ml/hr, Infuse over: 10 hr, Route: IV, Dosing Weight 166.273 kg, Total Volume: 750, Start date: 06/05/21 12:42:00 CDT, Duration: 10 hr, Stop date: 06/05/21 22:41:00 CDT, BSA: 3.02 m2, 0 [place] NovoLIN 70/30 06-05 15:45: 00 Yes 50 unit, SUB-Q, BID, 0 Refill(s) Tex Santana Rhiannon 06-05 15:44: 00 No See Instructio ns, PO, 0 Refill(s) Tex Santana insulin NPH-insulin regular (NovoLIN) (70-30) 100 UNIT/ML injection 06-04 18:30: 53 Yes Inject under the skin 2 (two) times a day before meals. [facility] Insulin NPH Isophane & Regular (NOVOLIN 70/30 SC) 06-04 18:30: 53 Yes Inject under the skin. [facility] apixaban (Eliquis) 5 MG tablet 06-04 18:29: 13 Yes 5mg Q.5D Take 5 mg by mouth 2 (two) times a day. [facility] apixaban (Eliquis) 5 MG tablet 05-23 16:36: 01 Yes 5mg Q.5D Take 5 mg by mouth 2 (two) times a day. [facility] atorvastati n (Lipitor) 40 MG tablet 04-28 00:00: 00 Yes 40mg Take 40 mg by mouth every night. [facility] losartan (Cozaar) 25 MG tablet 04-28 00:00: 00 Yes .5{tbl} QD Take 0.5 tablets by mouth 1 (one) time each day. [facility] furosemide (Lasix) 80 MG tablet 04-28 00:00: 00 Yes 1{tbl} Q.5D Take 1 tablet by mouth 2 (two) times a day. [facility] Saline Flush 0.9% 04-18 14:00: 00 No Notes: (Same as: BD Posiflush) Tex Santana Saline Flush 0.9% 04-18 12:50: 00 No Notes: (Same as: BD Posiflush) Tex Santana AMIODarone 200 mg oral tablet 03-22 17:58: 00 Yes 200 mg = 1 tab, PO, Daily, # 90 tab, 1 Refill(s), Pharmacy: [id number], 185.42, cm, 03/22/21 11:01:00 CDT, Height, 164.545, kg, 03/22/21 11:01:00 CDT, Weight Tex pearl Santana Regular Insulin, Human 100 UNT/ML Injectable [...] # 90 tab, 0 Refill(s) Tex Santana spironolact one 25 mg oral tablet 03-22 16:07: 00 Yes 25 mg = 1 tab, PO, Daily, # 90 tab, 1 Refill(s) Tex Santana atorvastati n 40 MG Oral Tablet [Lipitor] 03-22 16:06: 00 Yes 40 mg = 1 tab, PO, Bedtime, # 90 tab, 0 Refill(s) Txe Santana Digoxin 0.125 MG Oral Tablet 03-22 [...] by mouth 1 (one) time each day. [facility] atorvastati n 40 mg tablet 12-13 00:00: 00 Yes [id number] 40mg Take 1 tablet by mouth at bedtime. [facility] digoxin 125 mcg (0.125 mg) tablet 12-13 00:00: 00 Yes [id number] 125ug Take 1 tablet by mouth daily. [facility] furosemide 80 mg tablet 12-13 00:00: 00 Yes [id number] 80mg Take 1 tablet by mouth every morning and evening. [facility] losartan 25 mg tablet 12-13 00:00: 00 Yes [id number] 12.5mg Take 0.5 tablets by mouth daily. [facility] aspirin 81 MG chewable tablet 12-13 00:00: 00 Yes 81mg QD Chew 81 mg 1 (one) time each day. [facility] digoxin 125 mcg (0.125 mg) tablet 2019-11 00:00: 00 12-13 00:00 :00 No [id number] 125ug Take 1 tablet by mouth daily. [facility] insulin NPH and regular human 70-30 (HUMULIN 70-30 U-100 INSULIN) 100 unit/mL (70-30) injection 40 Units 2019-11 02:00: 00 Yes 40U 40 Units, Subcutaneo us, BID, First dose (after last modificati on) on Thu10/03/20 at 2000, Until Discontinu ed, Routine [facility] digoxin 125 mcg tablet 2019-11 00:00: 00 12-13 00:00 :00 No [id number] .125mg Take 1 tablet by mouth daily. [facility] losartan 25 mg tablet 2019-11 00:00: 00 12-13 00:00 :00 No [id number] 12.5mg Take 0.5 tablets by mouth daily. [facility] Sliding Scale Insulin - Lispro (HumaLOG) + Fsbg Testing 2019-11 20:00: 00 Yes Subcutaneo us, TIDAC, First dose (after last modificati on) on Thu10/03/20 at 1400, Until Discontinu ed, Routine [facility] insulin lispro (human) (HumaLOG U-100) injection 5 Units 2019-11 18:45: 00 10-03 17:45 :00 No 5U 5 Units, Subcutaneo us, ONCE, 1 dose, Thu10/03/20 at 1245, Routine [facility] KCL (KLOR-CON M20) tablet 20 mEq 2019-11 18:15: 00 10-03 17:47 :00 No 20meq 20 mEq, Oral, ONCE, 1 dose, Thu10/03/20 at 1215, Routine [facility] KCL (KLOR-CON M20) tablet 20 mEq 2019-11 15:00: 00 Yes 20meq 20 mEq, Oral, DAILY, First dose on Thu10/03/20 at 0900, Until Discontinu ed, Routine [facility] potassium chloride 20 mEq/100 mL (KCL) 20 mEq/100 mL 20 mEq piggyback 2019-11 13:30: 00 10-03 13:40 :00 No 20meq 20 mEq, IV Piggyback, ONCE, 1 dose, Thu10/03/20 at 0730 [facility] apixaban 5 mg tablet 2019-11 00:00: 00 Yes [id number] 5mg Take 1 tablet by mouth 2 (two) times daily. Indication s: prevention of thromboemb olism in paroxysmal atrial fibrillati on [facility] nitroglycer in 0.4 mg sublingual tablet 2019-11 00:00: [id number] 1 tablet under the tongue every 5 (five) minutes as needed for Chest pain. [facility] aspirin 81 mg chewable tablet 2019-11 00:00: 00 12-13 00:00 :00 No [id number] 81mg Take 1 tablet by mouth daily. [facility] atorvastati n 40 mg tablet 2019-11 00:00: 00 12-13 00:00 :00 No [id number] 40mg Take 1 tablet by mouth at bedtime. [facility] metoprolol succinate XL 50 mg 24 hr tablet 2019-11 00:00: 00 10-10 00:00 :00 No [id number] 75mg Take 1.5 tablets by mouth 2 (two) times daily. [facility] furosemide 80 mg tablet 2019-11 00:00: 00 10-03 00:00 :00 No [id number] 80mg Take 1 tablet by mouth every morning and evening for 90 days. [facility] metoprolol succinate XL 25 mg 24 hr tablet 2019-11 00:00: 00 10-03 00:00 :00 No [id number] 75mg Take 3 tablets by mouth 2 (two) times daily for 90 days. [facility] Sliding Scale Insulin - Lispro (HumaLOG) + Fsbg Testing 2019-11 20:00: 00 10-03 19:16 :39 No Subcutaneo us, TID, First dose (after last modificati on) on Thu10/02/20 at 1400, Until Discontinu ed, Routine [facility] insulin NPH and regular human 70-30 (HUMULIN 70-30 U-100 INSULIN) 100 unit/mL (70-30) injection 40 Units 2019-11 15:30: 00 10-03 19:16 :39 No 40U 40 Units, Subcutaneo us, QAM+PM, First dose (after last modificati on) on Thu10/02/20 at 0930, Until Discontinu ed, Routine [facility] furosemide (LASIX) tablet 80 mg 2019-11 15:00: 00 Yes 80mg 80 mg, Oral, QAM+PM, First dose on Thu10/02/20 at 0900, Until Discontinu ed, Routine [facility] furosemide (LASIX) injection 80 mg 2019-11 20:00: 00 10-02 14:59 :44 No 80mg 80 mg, IV Push, TID, First dose (after last modificati on) on Thu10/01/20 at 1400, Until Discontinu ed, ANTON [facility] tc 99m-tetrofo smin (MYOVIEW) injection 35 millicurie 2019-11 19:15: 00 10-01 19:05 :00 No 35mCi 35 millicurie , Intravenou s, ONCE, 1 dose, Thu10/01/20 at 1315, Routine [facility] insulin NPH and regular human 70-30 (HUMULIN 70-30 U-100 INSULIN) 100 unit/mL (70-30) injection 40 Units 2019-11 15:00: 00 10-02 15:21 :14 No 40U 40 Units, Subcutaneo us, QAM+PM, First dose on Thu10/01/20 at 0900, Until Discontinu ed, Routine [facility] KCL (KLOR-CON M20) tablet 20 mEq 2019-11 14:15: 00 10-01 13:43 :00 No 20meq 20 mEq, Oral, ONCE, 1 dose, Thu10/01/20 at 0815, Routine [facility] magnesium sulfate in water 2 gram/50 mL (4 %) infusion 2 g 2019-11 14:00: 00 10-01 13:42 :00 No 2g 2 g, IV Piggyback, ONCE, 1 dose, Thu10/01/20 at 0800, Routine [facility] metoprolol succinate XL (TOPROL XL) tablet 75 mg 2019-11 02:00: 00 Yes 75mg 75 mg, Oral, BID, First dose (after last modificati on) on Derwood 09/30/20 at 2000, Until Discontinu ed, Routine [facility] sulfur hexafluorid e microsphr (LUMASON) injection 5 mL 2019-11 18:30: 00 09-30 16:00 :00 No 5mL 5 mL, Intravenou s, ONCE, 1 dose, Derwood 09/30/20 at 1230, Routine
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 Restricted medication : REJI NOBLES [facility] digoxin (LANOXIN) tablet 125 mcg 2019-11 15:45: 00 Yes 125ug 125 mcg, Oral, DAILY, First dose on Thu09/30/20 at 0945, Until Discontinu ed, Routine [facility] metoprolol succinate XL (TOPROL XL) tablet 25 mg 2019-11 15:28: 00 09-30 15:46 :00 No 25mg 25 mg, Oral, ONCE, 1 dose, 09/30/20 at 0930, Routine [facility] Polyethylen e Glycol 3350 (MIRALAX) powder 17 g 2019-11 14:15: 00 10-02 20:22 :36 No 17g 17 g, Oral, BID, First dose on 09/30/20 at 0815, Until Discontinu ed, Routine [facility] insulin glargine (LANTUS U-100) injection 16 Units 2019-11 03:00: 00 10-01 14:16 :00 No 16U 16 Units, Subcutaneo us, QHS, First dose on 09/29/20 at 2100, Until Discontinu ed, Routine [facility] apixaban (ELIQUIS) tablet 5 mg 2019-11 02:00: 00 Yes 5mg 5 mg, Oral, BID, First dose on 09/29/20 at 2000, Until Discontinu ed, Routine [facility] furosemide (LASIX) injection 80 mg 2019-11 02:00: 00 10-01 17:11 :54 No 80mg 80 mg, IV Push, Q12H, First dose (after last modificati on) on 09/29/20 at 1999, Until Discontinu ed, ANTON [facility] metoprolol succinate XL (TOPROL XL) tablet 50 mg 2019-11 02:00: 00 09-30 15:28 :45 No 50mg 50 mg, Oral, BID, First dose (after last modificati on) on 09/29/20 at 2000, Until Discontinu ed, Routine [facility] insulin lispro (human) (HumaLOG U-100) injection 4 Units 2019-11 23:00: 00 10-01 14:16 :00 No 4U 4 Units, Subcutaneo us, TID MEALS, First dose on 09/29/20 at 1700, Until Discontinu ed, Routine [facility] Sliding Scale Insulin - Lispro (HumaLOG) + Fsbg Testing 2019-11 22:30: 00 10-02 14:18 :31 No Subcutaneo us, Q4H, First dose on 09/29/20 at 1630, Until Discontinu ed, Routine [facility] metoprolol succinate XL (TOPROL XL) tablet 12.5 mg 2019-11 17:04: 00 09-29 19:00 :00 No 12.5mg 12.5 mg, Oral, ONCE, 1 dose, 09/29/20 at 1115, Routine [facility] furosemide (LASIX) injection 40 mg 2019-11 15:41: 00 09-29 17:11 :00 No 40mg 40 mg, Slow IV Push, ONCE, 1 dose, 09/29/20 at 0945, Routine [facility] losartan (COZAAR) tablet 12.5 mg 2019-11 15:00: 00 Yes 12.5mg 12.5 mg, Oral, DAILY, First dose on 09/29/20 at 0900, Until Discontinu ed, Routine [facility] Sliding Scale Insulin - Lispro (HumaLOG) + Fsbg Testing 2019-11 14:00: 00 09-29 22:24 :01 No Subcutaneo us, TID MEALS+HS, First dose (after last modificati on) on 09/29/20 at 0800, Until Discontinu ed, Routine [facility] metoprolol succinate XL (TOPROL XL) tablet 37.5 mg 2019-11 14:00: 00 09-29 17:04 :42 No 37.5mg 37.5 mg, Oral, BID, First dose (after last modificati on) on 09/29/20 at 0800, Until Discontinu ed, Routine [facility] heparin STD 25,000 units/250ml in NS 2019-11 [...] e, Dosing and Testing: &nbs p;FOR [place], [facility], AND [facility] ONLY &nbs p; - [...] ADJUST INITIAL BOLUS OR INITIAL INFUSION RATE.
[facility] KCL (KLOR-CON M20) tablet 20 mEq 2019-11 12:00: 00 09-29 11:35 :00 No 20meq 20 mEq, Oral, ONCE, 1 dose, 09/29/20 at 0600, Routine [facility] acetaminoph en (TYLENOL) tablet 325 mg 2019-11 00:30: 33 Yes 325mg 325 mg, Oral, Q6HPRN, Starting Thu09/28/20 at 1830, Until Discontinu ed, Routine, headache [facility] heparin 1,000 unit/mL injection 2019-11 18:32: 00 09-28 18:32 :00 No Slow IV Push, TITRATE - FOR PROCEDURE USE, 1 dose, Starting Thu09/28/20 at 1232, Until Thu09/28/20 at 1232, Routine [facility] nitroglycer in (TRIDIL) 2 mg in 10 mL D5W for Cardiac Cath 2019-11 18:32: 00 09-28 18:32 :00 No Intravenou s, TITRATE - FOR PROCEDURE USE, 1 dose, Starting Thu09/28/20 at 1232, Until Thu09/28/20 at 1232, Routine [facility] midazolam (VERSED) injection 2019-11 18:31: 00 09-28 18:31 :00 No IV Push, TITRATE - FOR PROCEDURE USE, 1 dose, Starting Thu09/28/20 at 1231, Until Thu09/28/20 at 1231, Routine [facility] FENTanyl PF (SUBLIMAZE (PF)) injection 2019-11 18:28: 20 09-28 18:28 :20 No Slow IV Push, TITRATE - FOR PROCEDURE USE, 1 dose, Starting Thu09/28/20 at 1228, Until Thu09/28/20 at 1228, Routine [facility] lidocaine 1% (PF) (XYLOCAINE) injection 2019-11 18:14: 00 09-28 18:14 :00 No Infiltrati on, TITRATE - FOR PROCEDURE USE, 1 dose, Starting Thu09/28/20 at 1214, Until Thu09/28/20 at 1214, Routine [facility] FENTanyl PF (SUBLIMAZE (PF)) injection 2019-11 18:00: 00 09-28 18:00 :00 No Slow IV Push, TITRATE - FOR PROCEDURE USE, 1 dose, Starting Thu09/28/20 at 1200, Until Thu09/28/20 at 1200, Routine [facility] midazolam (VERSED) injection 2019-11 18:00: 00 09-28 18:00 :00 No IV Push, TITRATE - FOR PROCEDURE USE, 1 dose, Starting Thu09/28/20 at 1200, Until Thu09/28/20 at 1200, Routine [facility] metoprolol succinate XL (TOPROL XL) tablet 25 mg 2019-11 15:15: 00 09-29 13:32 :40 No 25mg 25 mg, Oral, BID, First dose on Thu09/28/20 at 0915, Until Discontinu ed, Routine [facility] aspirin chewable tablet 81 mg 2019-11 15:00: 00 Yes 81mg 81 mg, Oral, DAILY, First dose on Thu09/28/20 at 0900, Until Discontinu ed, Routine [facility] pantoprazol e (PROTONIX) EC tablet 40 mg 2019-11 15:00: 00 Yes 40mg 40 mg, Oral, DAILY, First dose on Thu09/28/20 at 0900, Until Discontinu ed, Routine [facility] atorvastati n (LIPITOR) tablet 40 mg 2019-11 08:15: 00 Yes 40mg 40 mg, Oral, QHS, First dose on Thu09/28/20 at 0215, Until Discontinu ed, Routine [facility] nitroglycer in (NITROSTAT) sublingual tablet 0.4 mg 2019-11 08:02: 39 Yes .4mg 0.4 mg, Sublingual , Q5MIN PRN, Starting Thu09/28/20 at 0202, Until Discontinu ed, Routine, Chest pain [facility] furosemide (LASIX) injection 40 mg 2019-11 08:00: 00 09-29 15:41 :59 No 40mg 40 mg, IV Push, Q12H, First dose (after last reorder) on Thu09/28/20 at 0200, Until Discontinu ed, ANTON [facility] Sliding Scale Insulin - Lispro (HumaLOG) + Fsbg Testing 2019-11 06:00: 00 09-29 13:30 :59 No Subcutaneo us, Q6H ABX, First dose on Thu09/28/20 at 0000, Until Discontinu ed, Routine [facility] metoprolol tartrate (LOPRESSOR) tablet 25 mg 2019-11 05:00: 00 09-28 15:12 :41 No 25mg 25 mg, Oral, BID, First dose on Mariaelena 09/27/20 at 2300, Until Discontinu ed, Routine [facility] heparin STD 25,000 units/250ml in NS 2019-11 [...] Rang e, Dosing and Testing: &nbs p;FOR [place], [facility] AND [facility] ONLY &nbs p; - aPTT < 35: [...] ADJUST INITIAL BOLUS OR INITIAL INFUSION RATE.
[facility] aspirin tablet 325 mg 2019-11 04:15: 00 09-28 03:38 :00 No 325mg 325 mg, Oral, ONCE, 1 dose, Mariaelena 09/27/20 at 2215, Routine [facility] iohexol (OMNIPAQUE 350 BULK-100 mL) injection 100 mL 2019-11 21:45: 00 09-27 21:45 :00 No 100mL 100 mL, Intravenou s, ONCE, 1 dose, Mariaelena 09/27/20 at 1545, Routine [facility] furosemide (LASIX) injection 40 mg 2019-11 21:45: 00 09-27 21:04 :00 No 40mg 40 mg, IV Push, ONCE, 1 dose, Mariaelena 09/27/20 at 1545, [facility] Units/250 mL (Premixed Bag) in [...] Rang e, Dosing and Testing: &nbs p;FOR [facility] ONLY &nbs p; - aPTT < 35: [...] ADJUST INITIAL BOLUS OR INITIAL INFUSION RATE.
[facility] heparin 1000 unit/mL injection Soln 4,000 Units 2019-11 20:45: 00 09-27 20:45 :00 No 4000U 4,000 Units, IV Push, ONCE, 1 dose, Mariaelena 09/27/20 at 1445, Routine [facility] aspirin 81 mg capsule Take 1 capsule every day by oral route. aspirin 81 mg capsule Take 1 capsule every day by oral route. No 1capsul e(s) Q1D aspirin 81 mg capsule Take 1 capsule every day by oral route. [facility] BD Ultra-Fine Short Pen Needle 31 gauge x 5/16" USE DIRECTED FIVE TIMES DAILY BD Ultra-Fine Short Pen Needle 31 gauge x 5/16" USE DIRECTED FIVE TIMES DAILY No BD Ultra-Fine Short Pen Needle 31 gauge x 5/16" USE DIRECTED FIVE TIMES DAILY [facility] Jardiance 25 mg tablet Take 1 tablet every day by oral route in the morning for 30 days. Jardiance 25 mg tablet Take 1 tablet every day by oral route in the morning for 30 days. No 1 Q1D Jardiance 25 mg tablet Take 1 tablet every day by oral route in the morning for 30 days. [facility] spironolact one 25 mg tablet Take 1 tablet every day by oral route. spironolact one 25 mg tablet Take 1 tablet every day by oral route. No spironolac tone 25 mg tablet Take 1 tablet every day by oral route. [facility] BD Deb 2nd Gen Pen Needle 32 gauge x 5/32" USE DIRECTED 4 TIMES DAILY BD Deb 2nd Gen Pen Needle 32 gauge x 5/32" USE DIRECTED 4 TIMES DAILY No BD Deb 2nd Gen Pen Needle 32 gauge x 5/32" USE DIRECTED 4 TIMES DAILY [facility] BD Ultra-Fine Mini Pen Needle 31 gauge x 3/16" BD Ultra-Fine Mini Pen Needle 31 gauge x 3/16" No BD Ultra-Fine Mini Pen Needle 31 gauge x 3/16" [facility] furosemide 40 mg tablet TAKE 1 TABLET BY MOUTH ONCE DAILY furosemide 40 mg tablet TAKE 1 TABLET BY MOUTH ONCE DAILY No furosemide 40 mg tablet TAKE 1 TABLET BY MOUTH ONCE DAILY [facility] metoprolol succinate ER 100 mg tablet,exte nded release 24 hr TAKE 1 TABLET BY MOUTH ONCE DAILY metoprolol succinate ER 100 mg tablet,exte nded release 24 hr TAKE 1 TABLET BY MOUTH ONCE DAILY No metoprolol succinate ER 100 mg tablet,ext ended release 24 hr TAKE 1 TABLET BY MOUTH ONCE DAILY [facility] ergocalcife rol (vitamin D2) [...] mcg (0.03 %) nasal spray [facility] albuterol sulfate HFA [...] TWICE DAILY FOR 14 DAYS [facility] Fiasp FlexTouch U-100 [...] using Cf 1:20; TDD 50 [facility] levofloxaci n 500 mg tablet TAKE 1 TABLET BY MOUTH ONCE DAILY levofloxaci n 500 mg tablet TAKE 1 TABLET BY MOUTH ONCE DAILY No levofloxac in 500 mg tablet TAKE 1 TABLET BY MOUTH ONCE DAILY [facility] Mounjaro 12.5 mg/0.5 mL [...] us route for 30 days. [facility] Mounjaro 15 mg/0.5 [...] us route for 30 days. [facility] omeprazole 40 mg [...] ALL ANTIBIOTIC S ARE FINISHED [facility] Immunizations Ordered Immunization Name Filled Immunization Name Date Status Comments Source [id number]< sup>1</sup> 2021-02-13 00:00:00 Completed [facility] Max COVID-19, mRNA, LNP-S, PF, 100 mcg/0.5 mL dose (Moderna) - ML COVID-19, mRNA, LNP-S, PF, 100 mcg/0.5 mL dose (Moderna) - ML Unknown Completed [facility] Vital Signs Vital Name Observation Time Observation Value Comments S ourdwain Systolic blood pressure 2021-06-11 14:21:00 131 mm[Hg] [...] Body Weight 2024-04-18 00:00:00 290 [lb_av] [facility] BMI (Body Mass Index) 2024-04-18 00:00:00 35.3 kg/m2 [facility] Height 2024-04-18 00:00:00 76 [in_i] [facility] BP Systolic 2023-10-20 00:00:00 143 mm[Hg] [facility] BMI (Body Mass Index) 2023-10-20 00:00:00 35.9 kg/m2 [facility] BP Diastolic 2023-10-20 00:00:00 85 mm[Hg] [facility] Body Weight 2023-10-20 00:00:00 295 [lb_av] [facility] Height 2023-10-20 00:00:00 76 [in_i] [facility] BP Diastolic 2023-04-20 00:00:00 92 mm[Hg] [facility] Height 2023-04-20 00:00:00 76 [in_i] [facility] BMI (Body Mass Index) 2023-04-20 00:00:00 [facility] 2023-04-20 00:00:00 154 mm[Hg] [facility] Body Weight 2023-04-20 00:00:00 300.6 [facility]av[facility] Di[facility] 2023-01-13 00:00:00 73 mm[Hg] [facility] Height 2023-01-13 00:00:00 76 [in_i] [facility] BMI (Body Mass Index) 2023-01-13 00:00:00 37.5 kg/m2 [facility] BP Systolic 2023-01-13 00:00:00 120 mm[Hg] [facility] Body Weight 2023-01-13 00:00:00 308 [lb_av] [facility] BP Diastolic 2022-07-25 00:00:00 82 mm[Hg] [facility] Height 2022-07-25 00:00:00 76 [in_i] [facility] BMI (Body Mass Index) 2022-07-25 00:00:00 37.7 kg/m2 [facility] BP Systolic 2022-07-25 00:00:00 134 mm[Hg] [facility] Body Weight 2022-07-25 00:00:00 310 [lb_av] [facility] BP Diastolic 2022-01-17 00:00:00 86 mm[Hg] [facility] Height 2022-01-17 00:00:00 76 [in_i] [facility] BMI (Body Mass Index) 2022-01-17 00:00:00 41.1 kg/m2 [facility] BP Systolic 2022-01-17 00:00:00 149 mm[Hg] [facility] Body Weight 2022-01-17 00:00:00 338 [...] Systolic blood pressure 2021-01-09 20:45:00 132 mm[Hg] [facility] Diastolic blood pressure 2021-01-09 20:45:00 82 mm[Hg] [facility] Heart rate 2021-01-09 20:45:00 78 /min [facility] Body temperature 2021-01-09 20:45:00 36.72 [facility] Body height 2021-01-09 20:45:00 193 cm [facility] Body weight 2021-01-09 20:45:00 163.93 kg [facility] BMI 2021-01-09 20:45:00 43.99 kg/m2 [facility] Oxygen saturation in Arterial blood by Pulse oximetry 2021-01-09 20:45:00 97 /min [facility] Systolic blood pressure 2021-01-09 20:45:00 132 mm[Hg] [facility] Diastolic blood pressure 2021-01-09 20:45:00 82 mm[Hg] [facility] [facility] Heart rate 2021-01-09 20:45:00 78 /min [facility] Body temperature 2021-01-09 20:45:00 36.72 [facility] Body height 2021-01-09 20:45:00 193 cm [facility] Body weight 2021-01-09 20:45:00 163.93 kg [facility] BMI 2021-01-09 20:45:00 43.99 kg/m2 [facility] Oxygen saturation in Arterial blood by Pulse oximetry 2021-01-09 20:45:00 97 /min [facility] Systolic blood pressure 2020-12-13 21:25:00 128 mm[Hg] [facility] Diastolic blood pressure 2020-12-13 21:25:00 82 mm[Hg] [facility] Heart rate 2020-12-13 21:25:00 95 /min [facility] Body temperature 2020-12-13 21:25:00 36.78 [facility] Body height 2020-12-13 21:25:00 193 cm [facility] Body weight 2020-12-13 21:25:00 165.518 kg [facility] BMI 2020-12-13 21:25:00 44.42 kg/m2 [facility] Oxygen saturation in Arterial blood by Pulse oximetry 2020-12-13 21:25:00 96 /min [facility] Systolic blood pressure 2020-10-10 21:52:00 117 mm[Hg] [facility] Diastolic blood pressure 2020-10-10 21:52:00 82 mm[Hg] [facility] Heart rate 2020-10-10 21:52:00 81 /min [facility] Body temperature 2020-10-10 21:52:00 36.39 [facility] Respiratory rate 2020-10-10 21:52:00 18 /min [facility] Body height 2020-10-10 21:52:00 193 cm [facility] Body weight 2020-10-10 21:52:00 159.802 kg [facility] BMI 2020-10-10 21:52:00 42.88 kg/m2 [facility] Oxygen saturation in Arterial blood by Pulse oximetry 2020-10-10 21:52:00 98 /min [facility] Systolic blood pressure 2020-10-03 21:56:00 105 mm[Hg] [facility] Diastolic blood pressure 2020-10-03 21:56:00 56 mm[Hg] [facility] Heart rate 2020-10-03 21:56:00 87 /min [facility] Body temperature 2020-10-03 21:56:00 37 [facility] Respiratory rate 2020-10-03 21:56:00 20 /min [facility] Oxygen saturation in Arterial blood by Pulse oximetry 2020-10-03 21:56:00 96 /min [facility] Body weight 2020-10-03 01:52:00 156.31 kg [facility] BMI 2020-10-03 01:52:00 41.95 kg/m2 [facility] Body height 2020-10-02 20:10:00 193 cm [facility] Heart Rate 2021-12-27 18:23:00 [facility] Systolic (mm Hg) 2021-12-27 18:23:00 [facility] Diastolic (mm Hg) 2021-12-27 18:23:00 [facility] Height 2021-12-27 18:23:00 193.04 cm [facility] Weight 2021-12-27 18:23:00 [facility] BMI Calculated 2021-12-27 18:23:00 [facility] Systolic (mm Hg) 2021-08-29 22:30:00 [facility] Diastolic (mm Hg) 2021-08-29 22:30:00 [facility] Height 2021-08-29 22:30:00 193.04 cm [facility] Weight 2021-08-29 22:30:00 [facility] BMI Calculated 2021-08-29 22:30:00 [facility] Heart Rate 2021-07-29 17:00:00 [facility] Respitory Rate 2021-07-29 17:00:00 [facility] Systolic (mm Hg) 2021-07-29 17:00:00 [facility] Diastolic (mm Hg) 2021-07-29 17:00:00 [facility] Heart Rate 2021-07-29 13:00:00 [facility] Respitory Rate 2021-07-29 13:00:00 [facility] Systolic (mm Hg) 2021-07-29 13:00:00 [facility] Diastolic (mm Hg) 2021-07-29 13:00:00 [facility] Temperature Oral (F) 2021-07-29 09:00:00 98.4 F [facility] Temperature Oral (F) 2021-07-29 05:00:00 97.4 F [facility] Heart Rate 2021-07-29 05:00:00 [facility] Respitory Rate 2021-07-29 05:00:00 [facility] Systolic (mm Hg) 2021-07-29 05:00:00 [facility] Diastolic (mm Hg) 2021-07-29 05:00:00 [facility] Temperature Oral (F) 2021-07-29 01:00:00 97.9 F [facility] Heart Rate 2021-07-29 01:00:00 [facility] Rate 2021-07-29 01:00:00 [facility] Systolic (mm Hg) 2021-07-29 01:00:00 [facility] Diastolic (mm Hg) 2021-07-29 01:00:00 [facility] Temperature Oral (F) 2021-07-28 20:55:00 97.9 F [facility] Heart Rate 2021-07-28 20:55:00 [facility] Respitory Rate 2021-07-28 20:55:00 [facility] Systolic (mm Hg) 2021-07-28 20:55:00 [facility] Diastolic (mm Hg) 2021-07-28 20:55:00 [facility] Height 2021-07-25 08:56:00 193.04 cm [facility] Height 2021-07-25 04:45:00 193.04 cm [facility] Height 2021-07-25 00:56:00 193.04 cm [facility] Weight 2021-07-23 14:12:00 [facility] BMI Calculated 2021-07-23 14:12:00 [facility] Systolic (mm Hg) 2021-06-05 19:30:00 [facility] Diastolic (mm Hg) 2021-06-05 19:30:00 [facility] Respitory Rate 2021-06-05 19:30:00 [facility] Systolic (mm Hg) 2021-06-05 19:00:00 [facility] Diastolic (mm Hg) 2021-06-05 19:00:00 [facility] Respitory Rate 2021-06-05 19:00:00 [facility] Systolic (mm Hg) 2021-06-05 18:30:00 [facility] Diastolic (mm Hg) 2021-06-05 18:30:00 [facility] Respitory Rate 2021-06-05 18:30:00 [facility] Heart Rate 2021-06-05 17:30:00 [facility] Heart Rate 2021-06-05 17:25:00 [facility] Heart Rate 2021-06-05 17:20:00 [facility] Height 2021-06-05 15:33:00 193.04 cm [facility] Weight 2021-06-05 15:33:00 [facility] BMI Calculated 2021-06-05 15:33:00 [facility] Systolic (mm Hg) 2021-05-23 15:14:00 [facility] Diastolic (mm Hg) 2021-05-23 15:14:00 [facility] Heart Rate 2021-05-23 15:14:00 [facility] Height 2021-05-23 15:14:00 182.88 cm [facility] Weight 2021-05-23 15:14:00 [facility] BMI Calculated 2021-05-23 15:14:00 [facility] Systolic (mm Hg) 2021-04-18 17:15:00 [facility] Diastolic (mm Hg) 2021-04-18 17:15:00 [facility] Systolic (mm Hg) 2021-04-18 17:00:00 [facility] Diastolic (mm Hg) 2021-04-18 17:00:00 [facility] Systolic (mm Hg) 2021-04-18 16:45:00 [facility] Diastolic (mm Hg) 2021-04-18 16:45:00 [facility] Respitory Rate 2021-04-18 16:30:00 [facility] Respitory Rate 2021-04-18 16:15:00 [facility] Respitory Rate 2021-04-18 16:00:00 [facility] Height 2021-04-18 12:47:00 152.4 cm [facility] Weight 2021-04-18 12:47:00 [facility] BMI Calculated 2021-04-18 12:47:00 [facility] Systolic (mm Hg) 2021-03-22 16:01:00 [facility] Diastolic (mm Hg) 2021-03-22 16:01:00 [facility] Heart Rate 2021-03-22 16:01:00 [facility] Height 2021-03-22 16:01:00 185.42 cm [facility] Weight 2021-03-22 16:01:00 [facility] BMI Calculated 2021-03-22 16:01:00 [facility] Procedures Procedure Date / Time Performed Performing Clinician Source ECG 12-LEAD 2024-03-08 15:28:52 JessicaKj [facility] ECG 12-LEAD 2023-03-02 16:21[facility] 2021-08-29 19:24:52 System, Prov ider Not In [facility] ECG 12-LEAD 2021-08-29 19:24:52 System, Prov ider Not In [facility] ECG 12-LEAD 2021-08-08 00:00:00 Moi Estrada [facility] XR CHEST 2 VIEWS 2021-08-07 14:03:54 Vishal [facility] XR CHEST 2 VIEWS 2021-08-07 14:03:54 Vishal [facility] XR CHEST 2 VIEWS 2021-07-23 17:27:31 Moi Estrada [facility] XR CHEST 2 VIEWS 2021-07-23 17:27:31 Moi Estrada [facility] BREATHING CAPACITY TEST 2021-07-23 15:25:28 Brittanie Estrada [facility] ECG 12-LEAD 2021-07-16 00:00:00 Moi Estrada [facility] US CAROTID DOPPLER BILATERAL 2021-06-26 19:01:34 Vishal [facility] US CAROTID DOPPLER BILATERAL 2021-06-26 19:01:34 Moi Estrada [facility] CT CHEST WO CONTRAST 2021-06-26 18:26:52 Moi Estrada [facility] CT CHEST WO CONTRAST 2021-06-26 18:26:52 Moi Estrada [facility] US DUP-SCAN HEMO COMPL UNI 2021-06-21 14:56:36 Moi Estrada [facility] US DUP-SCAN HEMO COMPL UNI 2021-06-21 14:56:36 Moi Estrada [facility] ECG 12-LEAD 2021-06-11 00:00:00 Moi Estrada [facility] th ECG 12-LEAD 2021-06-04 18:33:00 Mk Porter [facility] MRI CARDIAC MORPHOLOGY AND FUNCTION W AND WO IV CONTRAST 2021-05-11 22:26:00 [facility] MORPHOLOGY AND FUNCTION W AND WO IV CONTRAST 2021-05-11 22:26:00 [facility] D[facility]/SUPPLY JUSTIFICATION 2021-04-25 05:01:00 Doc emmanuelle Unassigned, [place] [facility] DME/SUPPLY JUSTIFICATION 2021-04-10 05:01:00 Doc emmanuelle Unassigned, [place] [facility] ASSIGNMENT OF BENEFITS 2020-10-10 21:36:15 Docnicolasa jonas Unassigned, [place] [facility] POCT GLUCOSE (AUTOMATED) 2020-10-03 22:51:00 Itu Oleksandr Mejía [facility] POCT GLUCOSE (AUTOMATED) 2020-10-03 21:03:00 Itu Oleksandr Mejía [facility] POCT GLUCOSE (AUTOMATED) 2020-10-03 20:02:00 Itu Oleksandr Mejía [facility] POCT GLUCOSE (AUTOMATED) 2020-10-03 17:25:00 Itu Oleksandr Mejía [facility] POCT GLUCOSE (AUTOMATED) 2020-10-03 13:40:00 Itu Oleksandr Mejía [facility] MAGNESIUM 2020-10-03 11:08:00 [facility]OLIC PANEL (NA, K, CL, CO2, GLUCOSE, BUN, CREATININE, CA) 2020-10-03 11:08:00 Shira Lund [facility] N-TERMINAL PRO-BNP 2020-10-03 11:08:00 Marlin Francis [facility] POCT GLUCOSE (AUTOMATED) 2020-10-03 02:16:00 Itu Oleksandr Mejía [facility] POCT GLUCOSE (AUTOMATED) 2020-10-03 00:28:00 Itu Oleksandr Mejía [facility] TRANSESOPHAGEAL ECHO 2020-10-02 21:32:30 Emily Kendall [facility] POCT GLUCOSE (AUTOMATED) 2020-10-02 20:07:00 Itu Oleksandr Mejía [facility] POCT GLUCOSE (AUTOMATED) 2020-10-02 16:10:00 Itu Oleksandr Mejía [facility] POCT GLUCOSE (AUTOMATED) 2020-10-02 14:11:00 Itu Oleksandr Mejía [facility] MAGNESIUM 2020-10-02 11:34:00 [facility]IC MET[facility]OLIC PANEL (NA, K, CL, CO2, GLUCOSE, BUN, CREATININE, CA) 2020-10-02 11:34:00 Shira Lund [facility] POCT GLUCOSE (AUTOMATED) 2020-10-02 10:34:00 Itu Oleksandr Mejía [facility] POCT GLUCOSE (AUTOMATED) 2020-10-02 06:06:00 Itu Oleksandr Mejía [facility] Echocardiogram<sup>1</sup> 2020-10-02 06:00:00 [facility] POCT GLUCOSE (AUTOMATED) 2020-10-02 02:19:00 Itu Oleksandr Mejía [facility] POCT GLUCOSE (AUTOMATED) 2020-10-01 23:01:00 Itu Oleksandr Mejía [facility] NM MYOCARDIAL VIABILITY REST 2020-10-01 21:55:48 Oleksandr Santiago [facility] POCT GLUCOSE (AUTOMATED) 2020-10-01 16:26:00 Itu Oleksandr Mejía [facility] POCT GLUCOSE (AUTOMATED) 2020-10-01 13:39:00 Itu Oleksandr Mejía [facility] MAGNESIUM 2020-10-01 11:14:00 Ashely [facility] BASIC METABOLIC PANEL (NA, K, CL, CO2, GLUCOSE, BUN, CREATININE, CA) 2020-10-01 11:14:00 Shira Lund [facility] POCT GLUCOSE (AUTOMATED) 2020-10-01 10:38:00 Itu Oleksandr Mejía [facility] POCT GLUCOSE (AUTOMATED) 2020-10-01 05:48:00 Itu Oleksandr Mejía [facility] POCT GLUCOSE (AUTOMATED) 2020-10-01 01:14:00 Itu serenity-Oleksandr Guevara [facility] POCT GLUCOSE (AUTOMATED) 2020-09-30 22:43:00 Itu Oleksandr Mejía [facility] POCT GLUCOSE (AUTOMATED) 2020-09-30 18:40:00 Itu Oleksandr Mejía [facility] POCT GLUCOSE (AUTOMATED) 2020-09-30 15:22:00 Itu Oleksandr Mejía [facility] ECHO ROUTINE W/DOPPLER COLOR 2020-09-30 15:07:37 Eva Limon [facility] MAGNESIUM 2020-09-30 10:50:00 Shira Lund [facility] BASIC METABOLIC PANEL (NA, K, CL, CO2, GLUCOSE, BUN, CREATININE, CA) 2020-09-30 10:50:00 Shira Lund [facility] ACTIVATED PARTIAL THRMPLAS RAY 2020-09-30 10:50:00 Huy Clay [facility] POCT GLUCOSE (AUTOMATED) 2020-09-30 10:46:00 Itu Oleksandr Mejía [facility] POCT GLUCOSE (AUTOMATED) 2020-09-30 05:37:00 Itu Oleksandr Mejía [facility] POCT GLUCOSE (AUTOMATED) 2020-09-30 03:06:00 Itu Oleksandr Mejía [facility] POCT GLUCOSE (AUTOMATED) 2020-09-30 00:32:00 Itu serenity-Oleksandr Guevara [facility] POCT GLUCOSE (AUTOMATED) 2020-09-29 21:52:00 Itu Oleksandr Mejía [facility] POCT GLUCOSE (AUTOMATED) 2020-09-29 18:30:00 Itu Oleksandr Mejía [facility] POCT GLUCOSE (AUTOMATED) 2020-09-29 14:48:00 Itu Oleksandr Mejía [facility] POCT GLUCOSE (AUTOMATED) 2020-09-29 11:31:00 Itu Oleksandr Mejía [facility] POCT GLUCOSE (AUTOMATED) 2020-09-29 07:37:00 Itu Oleksandr Mejía [facility] MAGNESIUM 2020-09-29 07:30:00 Shira Lund [facility] TROPONIN I 2020-09-29 07:30:00 Eva Limon [facility] BASIC METABOLIC PANEL (NA, K, CL, CO2, GLUCOSE, BUN, CREATININE, CA) 2020-09-29 07:30:00 Shira Lund [facility] GLYCOSYLATED HEMOGLOBIN (A1C) 2020-09-29 07:30:00 Lucille Raymundo [facility] ACTIVATED PARTIAL THRMPLAS RAY 2020-09-29 07:30:00 Eva Limon [facility] POCT GLUCOSE (AUTOMATED) 2020-09-29 04:36:00 Itu Oleksandr Mejía [facility] POCT GLUCOSE (AUTOMATED) 2020-09-29 01:31:00 Itu Oleksandr Mejía [facility] ACTIVATED PARTIAL THRMPLAS RAY 2020-09-28 22:33:00 Eva Limon [facility] HB ECG ROUTINE & RHYTHM STRIP 2020-09-28 20:09:53 Emily Kendall [facility] POCT GLUCOSE (AUTOMATED) 2020-09-28 12:15:00 Itu Oleksandr Mejía [facility] TROPONIN I 2020-09-28 09:42:00 [facility] ACTIVATED PARTIAL THRMPLAS RAY 2020-09-28 09:42:00 Eva Limon [facility] POCT GLUCOSE (AUTOMATED) 2020-09-28 06:29:00 Oleksandr Harris [facility] Cardiac catheterization, left heart<sup>2</sup> 2020-09-28 06:00:00 [facility] EKG-12 LEAD 2020-09-28 04:44:41 Oleksandr Winkler [facility] TROPONIN I 2020-09-28 03:26:00 [facility] LIPID PANEL (68972)(TOTAL CHOLESTEROL, TRIGLYCERIDES, HDL) 2020-09-28 03:26:00 Braxton [facility] ACTIVATED PARTIAL THRMPLAS RAY 2020-09-28 03:26:00 Braxton [facility] CT CHEST PULMONARY ANGIOGRAM 2020-09-27 21:31:11 Elisabet Deshpande [facility] LACTATE DEHYDROGENASE 2020-09-27 21:05:00 Mara Deshpande [facility] LIPASE 2020-09-27 19:09:00 Elisabet Deshpande [facility] TROPONIN I 2020-09-27 19:09:00 Elisabet Deshpande [facility] HEPATIC FUNCTION PANEL ([id number]) (ALB,T.PRO,BILI T,BU/BC,ALT,AST,ALK PHOS) 2020-09-27 19:09:00 Elisabet Deshpande [facility] BASIC METABOLIC PANEL (NA, K, CL, CO2, GLUCOSE, BUN, CREATININE, CA) 2020-09-27 19:09:00 Elisabet Deshpande [facility] CBC WITH DIFF 2020-09-27 19:09:00 Elisabet Deshpande [facility] PROTHROMBIN TIME / INR 2020-09-27 19:09:00 Yesenia Deshpande ala [facility] D-DIMER 2020-09-27 19:09:00 Elisabet Deshpande [facility] ACTIVATED PARTIAL THRMPLAS RAY 2020-09-27 19:09:00 Elisabet Deshpande [facility] N-TERMINAL PRO-BNP 2020-09-27 19:09:00 Elisabet Deshpande [facility] COVID-19 (ID NOW RAPID TESTING) 2020-09-27 19:09:00 Elisabet Deshpande [facility] LAB ONLY COVID INTERPRETATION 2020-09-27 19:09:00 Elisabet Deshpande [facility] HB ECG ROUTINE & RHYTHM STRIP 2020-09-27 18:52:44 Elisabet Deshpande [facility] XR CHEST 1 VW 2020-09-27 18:52:03 [facility] PRIVACY PRACT[facility] 2020-09-27 18:03:30 Doctor Unassigned, [place] [facility] CARDIAC CATHETERIZATION 2019-11-16 00:00:00 [facility] RIGHT SHOULDER SURGERY [facility] RIGHT FOOT SURGERY [facility] APPENDECTOMY [facility] Encounters Start Date/Time End Date/Time Encounter Type Admission Type Attending Clinicians Care Facility Care Department Encounter ID Source 2023-03-27 11:45:47 Outpatient [facility] [id number] [facility] 2023-01-05 12:32:47 Outpatient [facility] [id number] [facility] 2022-12-29 18:46:44 Outpatient [facility] [id number] [facility] 2022-08-27 18:04:34 Outpatient [facility] [id number] [facility] 2022-05-20 18:18:22 Outpatient KJ LOPEZ [facility] [id number] [facility] 2022-02-14 14:40:31 Outpatient BAYTN BAYTN [id number] [facility] 2022-02-12 13:10:48 Outpatient BAYTN ABDOULTN [id number] [facility] 2021-12-04 08:31:55 Outpatient KJ LOPEZ [facility] [id number] [facility] 2021-10-23 01:04:21 Outpatient MOI ESTRADA [facility] [id number] [facility] 2021-07-29 09:32:19 Outpatient MOI ESTRADA [facility] [id number] [facility] 2021-07-19 09:55:12 Outpatient MOI ESTRADA [id number] [facility] 2021-06-10 10:07:33 Outpatient MOI ESTRADA [facility] [id number] [facility] 2021-05-23 10:39:56 Outpatient MOI ESTRADA [facility] [id number] [facility] 2021-05-21 08:47:00 Outpatient MK PORTER [facility] [id number] [facility] 2021-03-26 01:03:33 Outpatient JESSICA KJ [facility] [id number] [facility] 2024-10-06 00:00:00 2024-10-06 14:18:56 Refill JessicaKj [facility] [place] [address] [facility] [id number]..[id number] [facility] 2024-04-18 00:00:00 2024-04-18 00:00:00 Garth Rios MD: [id number] [facility] [place] [facility], [address], [place] [address] , Ph. [facility] [place] [facility] [place] - VM_HOU_Shad ow [place] [id number] [facility] 2024-03-08 09:49:00 2024-03-08 23:59:00 Outpatient JESSICA KJ [facility] [id number] [facility] 2024-03-08 09:45:00 2024-03-08 09:45:00 External Contact KJ LOPEZ [facility] LOCATION [id number]..[id number] [facility] 2024-02-25 00:00:00 2024-02-25 00:00:00 Outpatient Getel_T_HO U_MD [facility] [id number] [facility] 2023-10-21 00:00:00 2023-10-21 00:00:00 Outpatient Getel_T_HO U_MD [facility] [id number] [facility] 2023-10-20 00:00:00 2023-10-20 00:00:00 Outpatient Daniel_T_HO U_MD VFP VFP [id number] [facility] 2023-10-20 00:00:00 2023-10-20 00:00:00 Garth Rios MD: [id number], [address], [place] [address] , Ph. V[facility] [place] - VM_HOU_[place] [id number] [facility] 2023-10-17 00:00:00 2023-10-17 00:00:00 Outpatient Daniel_T_HO U_MD VFP VFP [id number] [facility] 2023-09-01 09:31:00 2023-09-01 23:59:00 Outpatient KJ LOPEZ [facility] CAR [id number] [facility] 2023-09-01 10:45:00 2023-09-01 10:45:00 External Contact KJ LOPEZ EXT [facility] LOCATION [id number] [facility] 2023-04-20 00:00:00 2023-04-20 00:00:00 Outpatient Daniel_T VFP VFP [id number] [facility] 2023-04-20 00:00:00 2023-04-20 00:00:00 Outpatient Daniel_T VFP VFP [id number] [facility] e 2023-04-20 00:00:00 2023-04-20 00:00:00 Garth Rios MD: [id number], [address], [place] [address] , Ph. VFP [facility] [place] - VM_HOU_Shad [place] [id number] [facility] e 2023-04-17 00:00:00 2023-04-17 00:00:00 Outpatient Daniel_T VFP VFP [id number] [facility] 2023-03-02 11:03:00 2023-03-02 23:59:00 Outpatient KJ LOPEZ [facility] CAR [id number] [facility] 2023-03-02 10:30:00 2023-03-02 10:30:00 External Contact KJ LOPEZ EXT M[facility] LOCATION 1..840.114 [id number] [facility] 2023-01-13 00:00:00 2023-01-13 00:00:00 Outpatient Daniel_T VFP VFP [id number] [facility] 2023-01-13 00:00:00 2023-01-13 00:00:00 Outpatient Daniel_T VFP VFP [id number] [facility] 2023-01-13 00:00:00 2023-01-13 00:00:00 Garth Rios MD: [id number] [facility], [address], [place] [address] , Ph. [facility] [place] [facility] [place] [facility] [id number] 2022-09-10 09:39:00 2022-09-10 23:59:00 Outpatient JESSICACELSOIT [facility] [id number] [facility] 2022-08-26 10:09:00 2022-08-26 23:59:00 Outpatient JESSICACELSOIT [facility] [id number] [facility] 2022-08-26 10:15:00 2022-08-26 10:15:00 Office Visit KJ LOPEZ EXT [facility] LOCATION 1..840.114 [id number] [facility] 2022-07-28 00:00:00 2022-07-28 00:00:00 Outpatient Daniel_T VFP VFP [id number] [facility] 2022-07-25 00:00:00 2022-07-25 00:00:00 Outpatient Daniel_T VFP VFP [id number] [facility] 2022-07-25 00:00:00 2022-07-25 00:00:00 Garth Rios MD: [id number] [address] , Ph. VFP [place] - [facility] - VM_HOU_Shad ow [place] [id number] [facility] 2022-07-24 00:00:00 2022-07-24 00:00:00 Outpatient Daniel_T VFP VFP [id number] [facility] 2022-02-24 00:00:00 2022-02-24 00:00:00 Outpatient Daniel_T VFP VFP [id number] [facility] 2022-01-30 05:03:00 2022-01-30 05:03:00 Outpatient Daniel_T VFP VFP [id number] [facility] 2022-01-17 00:00:00 2022-01-17 00:00:00 Garth Rios MD: [id number], [address], [place] [address] , Ph. Daniel_T VFP [place] - [facility] - VM_HOU_Shad ow [place] [id number] [facility] 2021-12-27 15:53:00 2021-12-28 05:59:00 Outpatient nullFlavo r [facility] Cardiology [place] [id number] [place] 2021-12-27 09:53:00 2021-12-27 23:59:00 Outpatient KJ LOPEZ [facility] CAR 7509 [facility] 2021-12-25 07:43:00 2021-12-25 07:43:00 Outpatient Daniel_T VFP VFP [id number] [facility] 2021-12-23 19:05:00 2021-12-24 05:59:00 Outpt Diag Services nullFlavo r [facility] Outpatient Imaging [place] [id number] 03 [place] 2021-12-17 11:00:00 2021-12-17 13:01:59 Office Visit Moi Estrada [facility] 4 1.2.840.114 350.1.13.58 9.2.7.2.686 [id number] [facility] 2021-09-10 00:00:00 2021-09-10 00:00:00 EXT [facility] OP EXT MSRDP LOCATION 1.2.840.114 350.1.13.58 9.2.7.2.686 [id number] 0 [id number] [facility] 2021-09-10 00:00:00 2021-09-10 00:00:00 EXT [facility] OP EXT MSRDP LOCATION 1.2.840.114 350.1.13.58 9.2.7.2.686 [id number] 0 [id number] [facility] 2021-08-29 18:52:00 2021-08-30 04:59:00 Outpatient nullFlavo r [facility]iology [place] [id number] 04 [place] 2021-08-29 13:52:00 2021-08-29 23:59:00 Outpatient KJ LOPEZ [facility] CAR 7504 [facility] 2021-08-29 13:57:55 2021-08-29 14:12:55 Office Visit Kj Lopez EXT MSRDP LOCATION 1.2.840.114 350.1.13.58 9.2.7.2.686 [id number] 0 [id number] [facility] 2021-08-29 13:57:55 2021-08-29 14:12:55 Office Visit KJ LOPEZ EXT MSRDP LOCATION 1.2.840.114 350.1.13.58 9.2.7.2.686 [id number] 0 [id number] [facility] 2021-08-08 08:55:09 2021-08-08 10:19:56 Office Visit Moi Estrada [facility] 4 1.2.840.114 350.1.13.58 9.2.7.2.686 [id number] [facility] 2021-08-07 13:55:00 2021-08-08 04:59:00 Outpt Diag Services nullFlavo r [facility] Outpatient Imaging [facility] [id number] [place] 2021-08-07 00:00:00 2021-08-07 00:00:00 EXT [facility] OP Moi Estrada EXT MSRDP LOCATION 1.2840.114 350.1.13.58 9.2.7.2.686 [id number] [facility] 2021-08-07 00:00:00 2021-08-07 00:00:00 Telephone Paulette Harris Jacqueline [facility] 4 1.840.114 350.1.13.58 9.2.7.2.686 [id number] [facility] 2021-08-07 00:00:00 2021-08-07 00:00:00 EXT [facility] OP Moi Estrada EXT MSRDP LOCATION 1.84.114 350.1.13.58 9.2.7.2.686 [id number] 0 [id number] [facility] 2021-07-24 10:12:00 2021-07-29 21:27:00 Inpatient nullFlavo r [facility] [id number] [place] 2021-07-24 05:12:00 2021-07-29 16:27:00 Inpatient AIMEE MCGOWAN [facility] PUL 7507 [facility] 2021-07-29 00:00:00 2021-07-29 00:00:00 Telephone Fany Barrow Deanna [facility] 4 1.840.114 350.1.13.58 9.2.7.2.686 [id number] [facility] 2021-07-29 00:00:00 2021-07-29 00:00:00 Telephone Fany Barrow Deanna [facility] 4 1.2.840.114 350.1.13.58 9.2.7.2.686 [id number] [facility] 2021-07-29 00:00:00 2021-07-29 00:00:00 Orders Only Fany Barrow Danial Fany [facility] 4 1.2.840.114 350.1.13.58 9.2.7.2.686 [id number] [facility] 2021-07-29 00:00:00 2021-07-29 00:00:00 Telephone Danial Fanyjanie Barrow Fany [facility] 4 1.2.840.114 350.1.13.58 9.2.7.2.686 [id number] [facility] 2021-07-29 00:00:00 2021-07-29 00:00:00 Telephone BarrowMelissa wilcoxjanie Barrow, Fany [facility] 4 1.2.840.114 350.1.13.58 9.2.7.2.686 [id number] [facility] 2021-07-29 00:00:00 2021-07-29 00:00:00 Orders Only Fany Barrowliudmila Fany [facility] 4 1.2.840.114 350.1.13.58 9.2.7.2.686 [id number] [facility] 2021-07-24 07:13:11 2021-07-24 12:13:11 EXT [facility] OP Moi Estrada EXT MSRDP LOCATION 1.2.840.114 350.1.13.58 9.2.7.2.686 [id number] 1 [id number] [facility] 2021-07-24 07:13:11 2021-07-24 12:13:11 EXT [facility] OP Moi Estrada EXT MSRDP LOCATION 1.2.840.114 350.1.13.58 9.2.7.2.686 [id number] 1 [id number] [facility] 2021-07-23 17:10:00 2021-07-24 04:59:00 Outpt Diag Services nullFlavo r [facility] Outpatient Imaging [facility] [id number] [place] 2021-07-23 00:00:00 2021-07-23 00:00:00 EXT [facility] OP Moi Estrada EXT MSRDP LOCATION 1.2.840.114 350.1.13.58 9.2.7.2.686 [id number] 0 [id number] [facility] 2021-07-23 00:00:00 2021-07-23 00:00:00 EXT [facility] OP Moi Estrada EXT MSRDP LOCATION 1.2.840.114 350.1.13.58 9.2.7.2.686 [id number] 0 [id number] [facility] 2021-07-17 00:00:00 2021-07-17 00:00:00 EXT [facility] OP Moi Estrada EXT MSRDP LOCATION 1.2.840.114 350.1.13.58 9.2.7.2.686 [id number] [facility] 2021-07-17 00:00:00 2021-07-17 00:00:00 EXT [facility] OP Moi Estrada EXT MSRDP LOCATION 1.2.840.114 350.1.13.58 9.2.7.2.686 [id number] 0 [id number] [facility] 2021-07-16 09:09:17 2021-07-16 10:52:16 Office Visit Moi Estrada [facility] 4 1.2.840.114 350.1.13.58 9.2.7.2.686 [id number] [facility] 2021-07-16 09:09:17 2021-07-16 10:52:16 Office Visit Moi Estrada [facility] 4 1.2.840.114 350.1.13.58 9.2.7.2.686 [id number] [facility] 2021-07-16 00:00:00 2021-07-16 00:00:00 Telephone Fnay Barrow Deanna [facility] 4 1.2.840.114 350.1.13.58 9.2.7.2.686 [id number] 4 [id number] [facility] 2021-07-16 00:00:00 2021-07-16 00:00:00 Telephone Fany Barrow Deanna [facility] 4 1.2.840.114 350.1.13.58 9.2.7.2.686 [id number] [facility] 2021-06-26 18:08:00 2021-06-27 04:59:00 Outpt Diag Services nullFlavo r [facility] Outpatient [facility] [id number] [place] 2021-06-26 00:00:00 2021-06-26 00:00:00 EXT [facility] OP Moi Estrada EXT MSRDP LOCATION 1.2.840.114 350.1.13.58 9.2.7.2.686 [id number] 0 [id number] [facility] 2021-06-26 00:00:00 2021-06-26 00:00:00 EXT [facility] OP Moi Estrada EXT MSRDP LOCATION 1.2.840.114 350.1.13.58 9.2.7.2.686 [id number] 0 [id number] [facility] 2021-06-21 14:22:00 2021-06-22 04:59:00 Outpatient nullFlavo r [facility] [id number] [place] 2021-06-21 09:22:00 2021-06-21 23:59:00 Outpatient MOI ESTRADA [facility] [id number] [facility] 2021-06-21 05:45:00 2021-06-21 05:45:00 Outpatient Daniel_T VFP VFP [id number] [facility] 2021-06-19 00:00:00 2021-06-19 00:00:00 EXT [facility] OP Vishal Moi EXT MSRDP LOCATION 1.20.114 350.1.13.58 9.2.7.2.686 [id number] 0 [id number] [facility] 2021-06-19 00:00:00 2021-06-19 00:00:00 Telephone Fany Barrow Deanna [facility] 4 1.0.114 350.1.13.58 9.2.7.2.686 [id number] [facility] 2021-06-19 00:00:00 2021-06-19 00:00:00 EXT MHH OP Vishal Moi EXT MSRDP LOCATION 1.20.114 350.1.13.58 9.2.7.2.686 [id number] 0 [id number] [facility] 2021-06-18 00:00:00 2021-06-18 00:00:00 Garth Rios MD: [id number] [facility], [address], [place] [address] , Ph. Gabriel_T [facility] - _HOU_Shad [facility] [id number] [facility] 2021-06-14 00:00:00 2021-06-14 00:00:00 Telephone Fany Barrow Deanna [facility] 4 1.84.114 350.1.13.58 9.2.7.2.686 [id number] [facility] 2021-06-14 00:00:00 2021-06-14 00:00:00 Telephone Fany Barrow Deanna [facility] 4 1..114 350.1.13.58 9.2.7.2.686 [id number] [facility] 2021-06-11 09:03:20 2021-06-11 10:29:18 Office Visit Moi Estrada [facility] 4 1..840.114 350.1.13.58 9.2.7.2.686 [id number] 4 [id number] [facility] 2021-06-05 15:19:00 2021-06-05 20:30:00 Bedded Outpatient nullFlavo r [facility] [place] [id number] [facility] 2021-06-05 10:19:00 2021-06-05 15:30:00 Outpatient KJ LOPEZ [facility] CAR 7505 [facility] 2021-06-04 13:24:03 2021-06-04 14:16:53 Office Visit Mk Porter [facility] 1.2840.114 350.1.13.58 9.2.7.2.686 [id number] 1 [id number] [facility] 2021-05-23 14:59:00 2021-05-24 04:59:00 Outpatient nullFlavo r [facility] [place] [id number] [facility] 2021-05-23 09:59:00 2021-05-23 23:59:00 Outpatient KJ LOPEZ [facility] CAR 7501 [facility] 2021-05-23 11:22:49 2021-05-23 12:23:40 Office Visit Moi Estrada [facility] 4 1..840.114 350.1.13.58 9.2.7.2.686 [id number] [facility] 2021-05-21 00:00:00 2021-05-21 00:00:00 Telephone Mk Porter [facility] 1..840.114 350.1.13.58 9.2.7.2.686 [id number] [facility] 2021-05-11 21:02:00 2021-05-12 04:59:00 Outpatient nullFlavo r [facility] [id number] [facility] 2021-05-11 16:02:00 2021-05-11 23:59:00 Outpatient KJ LOPEZ [facility] CAR 7503 [facility] 2021-05-09 00:00:00 2021-05-09 00:00:00 EXT [facility] OP Kj Lopez EXT MSRDP LOCATION 1.2.840.114 350.1.13.58 9.2.7.2.686 [id number] [facility] 2021-05-09 00:00:00 2021-05-09 00:00:00 EXT [facility] OP Kj Lopez EXT MSRDP LOCATION 1.2.840.114 350.1.13.58 9.2.7.2.686 [id number] [facility] 2021-04-25 00:00:00 2021-04-25 00:00:00 Orders Only Doctor Unassigned, [place] [facility] 1.2.840.114 350.1.13.10 4.2.7.2.686 [id number] [facility] 2021-04-25 00:00:00 2021-04-25 00:00:00 Orders Only Doctor Unassigned, [place] [facility] 1.2.840.114 350.1.13.10 4.2.7.2.686 [id number] 2021-04-18 12:29:00 2021-04-18 17:55:00 Bedded Outpatient [facility] [id number] [place] 2021-04-18 07:29:00 2021-04-18 12:55:00 Outpatient KJ LOPEZ [facility] CAR 7502 [facility] 2021-04-10 00:00:00 2021-04-10 00:00:00 Orders Only Doctor Unassigned, [place] [facility] 1.2.840.114 350.1.13.10 4.2.7.2.686 [id number] [facility] 2021-04-10 00:00:00 2021-04-10 00:00:00 Orders Only Doctor Unassigned, [place] [facility] 1.2.840.114 350.1.13.10 4.2.7.2.686 [id number] 2021-03-22 15:30:00 2021-03-23 04:59:00 Outpatient marissaYosio sumi [facility] [place] [id number] [place] 2021-03-22 10:30:00 2021-03-22 23:59:00 Outpatient KJ LOPEZ [facility] CAR 7500 [facility] 2021-03-13 14:00:00 2021-03-13 14:00:00 Outpatient R JUAREZ [facility] [id number] [facility] 2021-03-11 10:00:00 2021-03-11 10:00:00 Outpatient RAEANN [facility] [id number] [facility] 2021-01-28 00:00:00 2021-01-28 00:00:00 Telephone Murray biju [facility] Medical Office Building 1.2.840.114 350.1.13.10 4.2.7.2.686 [id number] [facility] 2021-01-28 00:00:00 2021-01-28 00:00:00 Telephone Murray [facility] Medical Office Building 1.2.840.114 350.1.13.10 4.2.7.2.686 [id number] 2021-01-25 15:00:00 2021-01-25 15:00:00 Outpatient R MURRAY [facility] [id number] [facility] 2021-01-23 00:00:00 2021-01-23 00:00:00 Patient Outreach Huy Judge [facility] 1.2.840.114 350.1.13.10 4.2.7.2.686 [id number] [facility] 2021-01-23 00:00:00 2021-01-23 00:00:00 Patient Outreach Huy Judge [facility] 1.2840.114 350.1.13.10 4.2.7.2.686 [id number] 2021-01-09 16:00:00 2021-01-09 16:00:00 Outpatient R MURRAY [facility] [id number] [facility] 2021-01-09 14:27:31 2021-01-09 14:57:31 Office Visit Murray biju [facility] Office Building 1.2840.114 350.1.13.10 4.2.7.2.686 [id number] [facility] 2021-01-09 14:27:31 2021-01-09 14:57:31 Office Visit Murray [facility] Office Building 1.2840.114 350.1.13.10 4.2.7.2.686 [id number] 2020-12-21 15:00:00 2020-12-21 15:00:00 Outpatient R MRURAY [facility] [id number] [facility] 2020-12-21 13:50:24 2020-12-21 14:05:24 Door Frame Builder Visit Draw, [facility] Murray biju [facility] Office Building 1.2840.114 350.1.13.10 4.2.7.2.686 [id number] [facility] 2020-12-13 16:20:50 2020-12-13 16:35:50 Door Frame Builder Visit Draw, [facility] Marco Blaiseesmer Guillen [facility] Office Building 1.2840.114 350.1.13.10 4.2.7.2.686 [id number] [facility] 2020-12-13 15:03:01 2020-12-13 16:19:17 Office Visit Blaise Crouch [facility] Medical Office Building 1.2.840.114 350.1.13.10 4.2.7.2.686 [id number] [facility] 2020-12-13 15:15:00 2020-12-13 15:15:00 Outpatient R MARCO B[facility] [id number] [facility] 2020-11-23 00:00:00 2020-11-23 00:00:00 Refill Marcokirtelaine [facility] Medical Office Building 1.2.840.114 350.1.13.10 4.2.7.2.686 [id number] [facility] 2020-10-18 00:00:00 2020-10-18 00:00:00 Patient Outreach Cristina Stephens 1.2.840.114 350.1.13.10 4.2.7.2.686 [id number] [facility] 2020-10-10 16:44:39 2020-10-10 16:59:39 Door Frame Builder Visit Ezekiel, [facility] Murray [facility] Medical Office Building 1.2.840.114 350.1.13.10 4.2.7.2.686 [id number] [facility] 2020-10-10 15:37:28 2020-10-10 16:46:12 Office Visit Murray [facility] Medical Office Building 1.2.840.114 350.1.13.10 4.2.7.2.686 [id number] [facility] 2020-10-10 16:00:00 2020-10-10 16:00:00 Outpatient R MURRAY [facility] [id number] [facility] 2020-10-10 00:00:00 2020-10-10 00:00:00 Orders Only Doctor Unassigned, [place] [facility] 1.2.840.114 350.1.13.10 4.2.7.2.686 [id number] [facility] 2020-10-08 03:15:00 2020-10-08 03:15:00 Outpatient Daniel_T VFP VFP [id number] [facility] 2020-10-04 00:00:00 2020-10-04 00:00:00 Transition of Care Petrona Padilla 1.2.840.114 350.1.13.10 4.2.7.2.686 [id number] [facility] 2020-10-04 00:00:00 2020-10-04 00:00:00 Transition of Care Maya Jessica 1.2.840.114 350.1.13.10 4.2.7.2.686 [id number] [facility] 2020-09-27 12:25:00 2020-10-03 20:29:00 Hospital Encounter Elisabet Deshpande [facility] 1.2.840.114 350.1.13.10 4.2.7.2.686 [id number] [facility] 2020-09-27 12:06:00 2020-09-27 12:06:00 Emergency X [facility] ERT [id number] [facility] Results Test Description Test Time Test Comments Results Result Co mments Source [facility] [id number] 00:52:54SEE [employer] Data Hemoglobin A1c measurement device [id number] 09:30:58* Test Item Value Reference Range Interpretation Comme nts Hemoglobin A1c/Hemoglobin.to rocky in Blood (test code = 4548-4) 6.5 % 4.0-6.4 [facility]Mass/volume] in Capillary [id number] 09:26:40* Test Item Value Reference Range Interpretation Comme nts Blood Glucose: mg/dl (test c ode = Blood Glucose: mg/dl) 131 [facility] [id number] 10:27:06* Test Item Value Reference Range Interpretation Comme nts Hemoglobin A1c/Hemoglobin.to rocky in Blood (test code = 4548-4) 6.9 % 4.0-6.4 [facility] PracticeGl[facility] [Mass/volume] in Capillary [id number] 10:21:18* Test Item Value Reference Range Interpretation Comme nts Blood Glucose: mg/dl (test c ode = Blood Glucose: mg/dl) 153 [facility] device [id number] 13:53:22* Test Item Value Reference Range Interpretation Comme nts Hemoglobin A1c/Hemoglobin.to rocky in Blood (test code = 4548-4) 7.0 % 5.7-6.4 [facility] PracticeGlucose [Mass/volume] in Capillary [id number] 13:49:10* Test Item Value Reference Range Interpretation Comme nts Blood Glucose: mg/dl (test c ode = Blood Glucose: mg/dl) 149 [facility] device [id number] 10:40:31* Test Item Value Reference Range Interpretation Comme nts Hemoglobin A1c/Hemoglobin.to rocky in Blood (test code = 4548-4) 6.7 % 5.7-6.4 [facility] PracticeGlucose [Mass/volume] in Capillary [id number] 10:37:30* Test Item Value Reference Range Interpretation Comme nts Blood Glucose: mg/dl (test c ode = Blood Glucose: mg/dl) 149 [facility] device [id number] 08:51:25* Test Item Value Reference Range Interpretation Comme nts Hemoglobin A1C Fingerstick: (test code = Hemoglobin A1C Fingerstick:) 6.2 [facility] PracticeGlucose [Mass/volume] in Capillary [id number] 08:51:14* Test Item Value Reference Range Interpretation Comme nts Blood Glucose: mg/dl (test c ode = Blood Glucose: mg/dl) 127 [facility] [id number] 09:59:00* Test Item Value Reference Range Interpretation Comme nts Glucose Lvl (test code = Glucose Lvl) 101 70-[address] [facility]IxdcnrbURSSDKHDPF6054-62-33 09:59:00* Test Item Value Reference Range Interpretation Comme nts Segs (test code = Segs) 53.1 45.0-75.0 [facility]2021-09-12 15:37:00* Test Item Value Reference Range Interpretation Comme nts Glucose Lvl (test code = Glucose Lvl) 190 70- [facility] HospitalZccvxknTDPGGXGPAH3109-06-91 15:37:00* Test Item Value Reference Range Interpretation Comme nts WBC X 10x3 (test code = WBC X 10x3) 7.4 3.7-10.4 [facility]2021-09-11 07:38:00* Test Item Value Reference Range Interpretation Comme nts Glucose Lvl (test code = Glucose Lvl) 127 70- [facility] HospitalGpkqnbjQMTDBEMZTH8038-19-20 07:38:00* Test Item Value Reference Range Interpretation Comme nts Segs (test code = Segs) 63.3 45.0-75.0 [facility] [id number] 07:38:00* Test Item Value Reference Range Interpretation Comme nts Ca Ion WB (test code = Ca Ion WB) 1.15 1.05-1.25 [facility]X8443[facility]83-76 21:20:00* Test Item Value Reference Range Interpretation Comme nts Potassium Lvl (test code = P otassium Lvl) 3.8 3.5-5.1 [facility] [id number] 07:51:00* Test Item Value Reference Range Interpretation Comme nts Glucose Lvl (test code = Glucose Lvl) 178 70- [facility] HospitalOrkztjxAGQDDAYFPP9832-39-38 07:51:00* Test Item Value Reference Range Interpretation Comme nts WBC X 10x3 (test code = WBC X 10x3) 8.9 3.7-10.4 [facility] [id number] 07:51:00* Test Item Value Reference Range Interpretation Comme nts Ca Ion WB (test code = Ca Ion WB) 1.21 1.05-1.25 [facility] [id number] 02:59:00* Test Item Value Reference Range Interpretation Comme nts Lactic Acid Lvl (test code = Lactic Acid Lvl) 1.2 0.5-2.2 [facility] [id number] 20:42:00* Test Item Value Reference Range Interpretation Comme nts Lactic Acid Lvl (test code = Lactic Acid Lvl) 3.4 0.5-2.2 [facility]2021-09-09 14:34:00* Test Item Value Reference Range Interpretation Comme nts Lactic Acid Lvl (test code = Lactic Acid Lvl) 6.8 0.5-2.[address] [id number] 14:34:00* Test Item Value Reference Range Interpretation Comme nts Segs (test code = Segs) 83.9 45[facility]0-[facility].0 [id number] 14:34:00* Test Item Value Reference Range Interpretation Comme nts Ca Ion WB (test code = Ca Ion WB) 1.19 1.05-1.[address] [facility] Hos[id number] 07:44:00* Test Item Value Reference Range Interpretation Comme nts POC Activated Clotting Time (test code = POC Activated Clotting Time) 154 s [facility]2021-09-09 07:19:00* Test Item Value Reference Range Interpretation Comme nts Total Protein (test code = T otal Protein) 6.1 6.4-8.[address] [facility] [id number] 07:19:00* Test Item Value Reference Range Interpretation Comme nts PT (test code = PT) 16.4 s 12.0-14.[address] [facility] H[id number] 01:01:00* Test Item Value Reference Range Interpretation Comme nts PTT (test code = PTT) 33.1 s 22.9-35.8 [facility]2021-09-08 20:48:00* Test Item Value Reference Range Interpretation Comme nts Total Protein (test code = T otal Protein) 5.9 6.4-8.[address] [facility] [facility] H[id number] 20:44:00* Test Item Value Reference Range Interpretation Comme nts PTT (test code = PTT) 29.3 s 22.9-35.8 [facility] [id number] 19:21:00* Test Item Value Reference Range Interpretation Comme nts FFP product (test code = FFP product) Product available (07/24/21 2:21 PM) [facility] [id number] 14:50:00* Test Item Value Reference Range Interpretation Comme nts MRSA by PCR (test code = MRSA by PCR) Negative (07/23/21 9:50 AM) [facility] [id number] 14:50:00* Test Item Value Reference Range Interpretation Comme nts ABO/Rh (test code = ABO/Rh) A POS [id number] 14:50:00* Test Item Value Reference Range Interpretation Comme nts PTT (test code = PTT) 31.6 s 22.9-35.8 [id number] 14:50:00* Test Item Value Reference Range Interpretation Comme nts Trig (test code = Trig) 118 [facility]andSPECIAL [id number] 14:50:00* Test Item Value Reference Range Interpretation Comme nts Hgb A1C (test code = Hgb A1C) 7.2 [facility] [id number] 14:47:00* Test Item Value Reference Range Interpretation Comme nts RBC product (test code = RBC product) Product available (07/23/21 9:47 AM) [facility]andWczkmcfSRBIPQBBTD9546-68-77 13:23:00* Test Item Value Reference Range Interpretation Comme nts Coronavirus (COVID-19) JANNA (test code = Coronavirus (COVID-19) JANNA) Not Detected (07/23/21 8:23 AM) [facility] FPBreathing capacity [id number] 05:00:00SEE IMAGELINKInterface, [facility] Imaging Results - 07/23/2021 12:02 PM CDTFormatting of this note mightbe different from the original.SEE IMAGELINKUT HealthELECTROLYTES 2021-06-05 15:47:00* Test Item Value Reference Range Interpretation Comme nts POC Sodium (test code = POC Sodium) 141 135-145 [facility]andCHEM [id number] 15:37:00* Test Item Value Reference Range Interpretation Comme nts Glucose Lvl (test code = Glucose Lvl) 196 70-99 [facility]GmnpaqzKMNUCKPFJT0296-24-15 15:37:00* Test Item Value Reference Range Interpretation Comme nts WBC (test code = WBC) 7.7 3.7-10.4 [facility]andNurego [id number] 22:03:00* Test Item Value Reference Range Interpretation Comme nts POC Creatinine (test code = POC Creatinine) 1.0 0.5-1.4 [facility] HospitalCuenpuoEUSHKKWJEIFG7782-02-42 13:28:00* Test Item Value Reference Range Interpretation Comme nts POC Sodium (test code = POC Sodium) 140 135-145 [facility]andNurego [id number] 12:54:00* Test Item Value Reference Range Interpretation Comme nts Glucose Lvl (test code = Glucose Lvl) 158 70-99 [facility] HospitalGokhlexCAIEQDTWSQ9520-83-46 12:54:00* Test Item Value Reference Range Interpretation Comme nts WBC (test code = WBC) 6.9 3.7-10.4 [facility]andLkhbxlbLSRXBMHLPO8634-87-98 18:43:00* Test Item Value Reference Range Interpretation Comme nts Coronavirus (COVID-19) JANNA (test code = Coronavirus (COVID-19) JANNA) Not Detected (04/16/21 1:43 PM) [facility] GLUCOSE (AUTOMATED)2020-10-03 22:57:00* Test Item Value Reference Range Interpretation Comme nts POCT GLU (test code = 5859463628) 233 mg/dL 70-110 H Notified Provide r Lab Interpretation (test code = 05288-7) Abnormal [facility] GLUCOSE (AUTOMATED)2020-10-03 21:05:00* Test Item Value Reference Range Interpretation Comme nts POCT GLU (test code = 8148502870) 282 mg/dL 70-110 H Lab Interpretation (test cod e = 48198-7) Abnormal [facility] GLUCOSE (AUTOMATED)2020-10-03 20:12:00* Test Item Value Reference Range Interpretation Comme nts POCT GLU (test code = 0056387584) 307 mg/dL 70-110 H Lab Interpretation (test cod e = 69432-5) Abnormal [facility] GLUCOSE (AUTOMATED)2020-10-03 17:27:00* Test Item Value Reference Range Interpretation Comme nts POCT GLU (test code = 4363495650) 302 mg/dL 70-110 H Notified Provide r Lab Interpretation (test code = 04102-0) [facility]normal [facility]SE ([facility]OMATED)2020-10-03 13:41:00* Test Item Value Reference Range Interpretation Comme [facility] POCT GLU (test code = 1199108016) 140 mg/dL 70-110 H Notified Provide r Lab Interpretation (test code = 14904-5) Abnormal [facility] CenterN-TERMINAL LAI-[id number] 12:14:00* Test Item Value Reference Range Interpretation Comme [facility] NT-proBNP (test code = 2249114002) 722 pg/mL See_Comment H [Automated message] The system which generated this result transmitted reference range: <=125. The reference range was not used to interpret this result as normal/abnormal. KARSON (test code = KARSON) Biotin has been reported to cause a negative bias, interpret results relative to patient's use of biotin. Lab Interpretation (test code = 64140-0) Abnormal [facility] METABOLIC PANEL (NA, K, CL, CO2, GLUCOSE, BUN, CREATININE, CA)2020-10-03 12:01:00* Test Item Value Reference Range Interpretation Comme [facility] NA (test code = 6032722819) 135 mmol/L 135-145 K (test code = 8702206471) 3.5 mmol/L 3.5-5 CL (test code = 6096888408) 102 mmol/L 98-108 CO2 TOTAL (test code = 2652095410) 30 mmol/L 23-31 AGAP (test code = 3467880022) 2-16 BUN (test code = 9234947290) 28 mg/dL 7-23 H GLUCOSE (test code = 2011189910) 140 mg/dL 70-110 H CREATININE (test code = 2696103848) 0.96 mg/dL 0.6-1.25 CALCIUM (test code = 2600894724) 8.6 mg/dL 8.6-10.6 eGFR Calculation (Non-) (test code = 1753781499) mL/min/1.73m2 eGFR Calculation () (test code = 2230384145) mL/min/1.73m2 KARSON (test code = KARSON) Association [...] imaging tests). Lab Interpretation (test code = 24989-5) Abnormal [facility] CenterMAGNESIUM2020-11-18 12:01:00* Test Item Value Reference Range Interpretation Comme nts MAGNESIUM (test code = 6799522601) 2.2 mg/dL 1.7-2.4 Lab Interpretation (test cod e = 95539-2) Normal [facility] CenterLAB ONLY COVID [id number] 11:39:00COVID DMT InterpretationInterpretation/Recommendations: Molecular NAAT Test Results [...] a nasopharyngeal sample, there is approximately a hdi-cw-yhoiy chance that the patient was infected and [...] based upon aggregate COVID-19 test results pooledfrom [facility]. They apply to the following tests offered at [facility] and assume the acceptable specimen type(s) were used: A. Tests for the Identification of SARS-CoV-2 RNA (Molecular NAAT Tests):SARS-CoV-2 PCR assays including Antoine Aptima, Antoine Fusion, Mullins RealTime, and SupportBee Xpert Xpress. SARS-CoV-2 Rapid ID NOW by the ID NOW assay.? B. Tests for the Identification of SARS-CoV-2 Antibodies: Chemiluminescent immunoassays including Access SARS-CoV-2 IgM (DXI 600), Brighter Dental CareS Yces-HSVP-DyN-2 IgG (Vitros 5600 and Vitros 3600), and Mullins SARS-CoV-2 IgG (GREEN TIRE INSPECTOR I System). ?These interpretations are autopopulated into CM Sistemi based on computerized algorithms matching an interpretation code to the patient's set of test results, and a clinical pathologist evaluates the comments for accuracy. However, these comments do not consider testing a patient may have had outside of the [facility] system. If results for COVID-19 infection [...] bronchoalveolar lavage fluid (BAL), tracheal aspirate, etc.). ?[facility] LABORATORY SERVICESCOVID IhauuuxCRNQ-HbY-6 Rapid ID NOW (no units) ? ? Date ? Value ? 09/27/2020 ? Not Detected ? [facility] SERVICESUn[facility] ([facility]OMATED)2020-10-03 02:18:00* Test Item Value Reference Range Interpretation Comme nts POCT GLU (test code = 0533634871) 253 mg/dL 70-110 H Lab Interpretation (test cod e = 81347-9) Abnormal [facility] GLUCOSE (AUTOMATED)2020-10-03 00:29:00* Test Item Value Reference Range Interpretation Comme nts POCT GLU (test code = 6503411697) 203 mg/dL 70-110 H Notified Provide r Lab Interpretation (test code = 97835-2) Abnormal [facility] GLUCOSE (AUTOMATED)2020-10-02 20:08:00* Test Item Value Reference Range Interpretation Comme nts POCT GLU (test code = 1660856345) 207 mg/dL 70-110 H Lab Interpretation (test cod e = 59394-8) Abnormal [facility] GLUCOSE (AUTOMATED)2020-10-02 16:11:00* Test Item Value Reference Range Interpretation Comme nts POCT GLU (test code = 3038519383) 230 mg/dL 70-110 H Lab Interpretation (test cod e = 26944-0) Abnormal [facility] GLUCOSE (AUTOMATED)2020-10-02 14:12:00* Test Item Value Reference Range Interpretation Comme nts POCT GLU (test code = 0155439101) 165 mg/dL 70-110 H Notified Provide r Lab Interpretation (test code = 52977-9) Abnormal [facility] METABOLIC PANEL (NA, K, CL, CO2, GLUCOSE, BUN, CREATININE, CA)2020-10-02 13:48:00* Test Item Value Reference Range Interpretation Comme nts NA (test code = 1660292874) 136 mmol/L 135-145 K (test code = 9787340859) 4.0 mmol/L 3.5-5 CL (test code = 4515302014) 98 mmol/L 98-108 CO2 TOTAL (test code = 5579711866) 31 mmol/L 23-31 AGAP (test code = 0315579481) 2-16 BUN (test code = 0543501914) 29 mg/dL 7-23 H GLUCOSE (test code = 4854859094) 148 mg/dL 70-110 H CREATININE (test code = 6049715199) 1.11 mg/dL 0.6-1.25 CALCIUM (test code = 0709806683) 8.9 mg/dL 8.6-10.6 eGFR Calculation (Non-) (test code = 4317614603) mL/min/1.73m2 eGFR Calculation () (test code = 9258158951) mL/min/1.73m2 KARSON (test code = KARSON) Association [...] imaging tests). Lab Interpretation (test code = 59660-8) Abnormal [facility] CenterMAGNESIUM2020-11-17 13:48:00* Test Item Value Reference Range Interpretation Comme nts MAGNESIUM (test code = 7849034855) 2.2 mg/dL 1.7-2.4 Lab Interpretation (test cod e = 06039-8) Normal [facility] GLUCOSE (AUTOMATED)2020-10-02 10:37:00* Test Item Value Reference Range Interpretation Comme nts POCT GLU (test code = 9507527842) 150 mg/dL 70-110 H Lab Interpretation (test cod e = 14923-3) Abnormal [facility] GLUCOSE (AUTOMATED)2020-10-02 06:07:00* Test Item Value Reference Range Interpretation Comme nts POCT GLU (test code = 0248933742) 176 mg/dL 70-110 H Lab Interpretation (test cod e = 37729-5) Abnormal [facility] GLUCOSE (AUTOMATED)2020-10-02 02:30:00* Test Item Value Reference Range Interpretation Comme nts POCT GLU (test code = 1974975340) 246 mg/dL 70-110 H Lab Interpretation (test cod e = 25640-2) Abnormal [facility] GLUCOSE (AUTOMATED)2020-10-01 23:06:00* Test Item Value Reference Range Interpretation Comme nts POCT GLU (test code = 5160822326) 243 mg/dL 70-110 H Lab Interpretation (test cod e = 57371-7) Abnormal [facility] CenterNM MYOCARDIAL VIABILITY [id number] 22:15:07Impression: 1) Evidence of complete viability in [...] mL; ESV = 180 mL; EF= 21%. [facility] [place] Results Inft User - 10/01/2020 4:16 PM [...] by Dr Rey interpretation by Reji Randall MD.[facility] CenterPOCT GLUCOSE (AUTOMATED)2020-10-01 16:35:00 * Test Item Value Reference Range Interpretation Comme nts POCT GLU (test code = 7299923966) 229 mg/dL 70-110 H Lab Interpretation (test cod e = 70912-7) Abnormal [facility] CenterPOHI GLUCOSE (AUTOMATED)2020-10-01 13:40:00* Test Item Value Reference Range Interpretation Comme [facility] POCT GLU (test code = 7342437638) 244 mg/dL 70-110 H Lab Interpretation (test cod e = 32181-7) Abnormal [facility] METABOLIC PANEL (NA, K, CL, CO2, GLUCOSE, BUN, CREATININE, CA)2020-10-01 12:51:00* Test Item Value Reference Range Interpretation Comme [facility] NA (test code = 8384622995) 134 mmol/L 135-145 L K (test code = 8631211253) 3.9 mmol/L 3.5-5 CL (test code = 5243239406) 97 mmol/L 98-108 L CO2 TOTAL (test code = 7960257821) 32 mmol/L 23-31 H AGAP (test code = 2537656785) 2-16 BUN (test code = 4626800312) 23 mg/dL 7-23 GLUCOSE (test code = 1888730684) 237 mg/dL 70-110 H CREATININE (test code = 9146912135) 1.01 mg/dL 0.6-1.25 CALCIUM (test code = 1812183456) 8.6 mg/dL 8.6-10.6 eGFR Calculation (Non-) (test code = 3722672528) mL/min/1.73m2 eGFR Calculation () (test code = 5277372303) mL/min/1.73m2 KARSON (test code = KARSON) Association [...] imaging tests). Lab Interpretation (test code = 73172-3) [facility] 12:51:00* Test Item Value Reference Range Interpretation Comme nts MAGNESIUM (test code = 3310698893) 1.9 mg/dL 1.7-2.4 Lab Interpretation (test cod e = 00922-4) Normal [facility] GLUCOSE (AUTOMATED)2020-10-01 10:40:00* Test Item Value Reference Range Interpretation Comme nts POCT GLU (test code = 4783360692) 230 mg/dL 70-110 H Lab Interpretation (test cod e = 64536-5) Abnormal [facility] GLUCOSE (AUTOMATED)2020-10-01 06:00:00* Test Item Value Reference Range Interpretation Comme nts POCT GLU (test code = 6501489772) 281 mg/dL 70-110 H Lab Interpretation (test cod e = 21318-1) Abnormal [facility] GLUCOSE (AUTOMATED)2020-10-01 01:18:00* Test Item Value Reference Range Interpretation Comme nts POCT GLU (test code = 2693740227) 201 mg/dL 70-110 H Lab Interpretation (test cod e = 26959-5) Abnormal [facility] GLUCOSE (AUTOMATED)2020-09-30 22:45:00* Test Item Value Reference Range Interpretation Comme nts POCT GLU (test code = 2556281210) 239 mg/dL 70-110 H Lab Interpretation (test cod e = 01804-6) Abnormal [facility] GLUCOSE (AUTOMATED)2020-09-30 18:42:00* Test Item Value Reference Range Interpretation Comme [facility] POCT GLU (test code = 6188762617) 305 mg/dL 70-110 H Notified Provide r Lab Interpretation (test code = 55372-1) Abnormal [facility] CenterPO[facility] GLUCOSE (AUTOMATED)2020-09-30 15:23:00* Test Item Value Reference Range Interpretation Comme [facility] POCT GLU (test code = 9479022723) 259 mg/dL 70-110 H Lab Interpretation (test cod e = 22971-3) Abnormal [facility] METABOLIC PANEL (NA, K, CL, CO2, GLUCOSE, BUN, CREATININE, CA)2020-09-30 11:28:00* Test Item Value Reference Range Interpretation Comme [facility] NA (test code = 8311965611) 133 mmol/L 135-145 L K (test code = 0182844890) 4.1 mmol/L 3.5-5 CL (test code = 7101532138) 98 mmol/L 98-108 CO2 TOTAL (test code = 3252677444) 29 mmol/L 23-31 AGAP (test code = 4307550251) 2-16 BUN (test code = 0606557729) 23 mg/dL 7-23 GLUCOSE (test code = 0916149819) 275 mg/dL 70-110 H CREATININE (test code = 9944909491) 0.91 mg/dL 0.6-1.25 CALCIUM (test code = 7019474876) 8.6 mg/dL 8.6-10.6 eGFR Calculation (Non-) (test code = 3647235565) mL/min/1.73m2 eGFR Calculation () (test code = 5697267244) mL/min/1.73m2 KARSON (test code = KARSON) Association [...] imaging tests). Lab Interpretation (test code = 77054-7) Abnormal [facility] CenterMAGNESIUM2020-11-15 11:28:00* Test Item Value Reference Range Interpretation Comme nts MAGNESIUM (test code = 3138368213) 1.9 mg/dL 1.7-2.4 Lab Interpretation (test cod e = 37103-1) Normal [facility] CenteraPTT (for use with Heparin Drip)2020-09-30 11:23:00* Test Item Value Reference Range Interpretation Comme nts APTT Patient (test code = 3173-2) See_Comment [Automated Tiange ge] The system which generated this result transmitted reference range: 26 - 36 Seconds. The reference range was not used to interpret this result as normal/abnormal. Lab Interpretation (test code = 84254-5) Normal [facility] GLUCOSE (AUTOMATED)2020-09-30 10:54:00* Test Item Value Reference Range Interpretation Comme nts POCT GLU (test code = 7102483751) 267 mg/dL 70-110 H Lab Interpretation (test cod e = 30168-3) Abnormal [facility] GLUCOSE (AUTOMATED)2020-09-30 05:38:00* Test Item Value Reference Range Interpretation Comme nts POCT GLU (test code = 0614463720) 217 mg/dL 70-110 H Lab Interpretation (test cod e = 98866-3) Abnormal [facility] GLUCOSE (AUTOMATED)2020-09-30 03:07:00* Test Item Value Reference Range Interpretation Comme nts POCT GLU (test code = 1627099217) 234 mg/dL 70-110 H Lab Interpretation (test cod e = 71429-2) Abnormal [facility] GLUCOSE (AUTOMATED)2020-09-30 00:33:00* Test Item Value Reference Range Interpretation Comme nts POCT GLU (test code = 3728350000) 292 mg/dL 70-110 H Notified Provide r Lab Interpretation (test code = 62294-3) Abnormal [facility] GLUCOSE (AUTOMATED)2020-09-29 21:54:00* Test Item Value Reference Range Interpretation Comme nts POCT GLU (test code = 4879832430) 414 mg/dL 70-110 H Lab Interpretation (test cod e = 19934-4) Abnormal [facility] GLUCOSE (AUTOMATED)2020-09-29 18:31:00* Test Item Value Reference Range Interpretation Comme nts POCT GLU (test code = 3685899444) 341 mg/dL 70-110 H Notified Provide r Lab Interpretation (test code = 26410-8) Abnormal [facility] GLUCOSE (AUTOMATED)2020-09-29 14:49:00* Test Item Value Reference Range Interpretation Comme nts POCT GLU (test code = 9337117992) 146 mg/dL 70-110 H Lab Interpretation (test cod e = 74319-7) Abnormal [facility] GLUCOSE (AUTOMATED)2020-09-29 11:44:00* Test Item Value Reference Range Interpretation Comme nts POCT GLU (test code = 0796619673) 139 mg/dL 70-110 H Lab Interpretation (test cod e = 76024-3) Abnormal [facility] CenterGLYCOSYLATED HEMOGLOBIN (A1C)2020-09-29 09:15:00* Test Item Value Reference Range Interpretation Comme nts HGB A1C (test code = 4548-4) 8.8 % 4-6 H Lab Interpretation (test cod e = 50737-7) Abnormal [facility] CenterTroponin [id number] 08:42:00* Test Item Value Reference Range Interpretation Comme nts TROPONIN I (test code = 0345864092) 0.101 ng/mL See_Comment H [Automated message] The [...] biotin. ? Lab Interpretation (test code = 94619-4) [facility]normal [facility] (NA, K, CL, CO2, GLUCOSE, BUN, CREATININE, CA)2020-09-29 08:25:00* Test Item Value Reference Range Interpretation Comme nts NA (test code = 9943142365) 135 mmol/L 135-145 K (test code = 4608870973) 3.9 mmol/L 3.5-5 CL (test code = 5336263297) 100 mmol/L 98-108 CO2 TOTAL (test code = 3982277329) 32 mmol/L 23-31 H AGAP (test code = 0678051763) 2-16 BUN (test code = 3211401299) 17 mg/dL 7-23 GLUCOSE (test code = 8241599909) 213 mg/dL 70-110 H CREATININE (test code = 8615804117) 0.76 mg/dL 0.6-1.25 CALCIUM (test code = 9086474257) 8.8 mg/dL 8.6-10.6 eGFR Calculation (Non-) (test code = 7724484339) mL/min/1.73m2 eGFR Calculation () (test code = 6072743498) mL/min/1.73m2 KARSON (test code = KARSON) Association [...] imaging tests). Lab Interpretation (test code = 85499-1) Abnormal [facility] CenterMAGNESIUM2020-11-14 08:25:00* Test Item Value Reference Range Interpretation Comme [facility] MAGNESIUM (test code = 3945907971) 2.0 mg/dL 1.7-2.4 Lab Interpretation (test cod e = 09211-7) Normal [facility] CenteraPTT (for use with Heparin Drip)2020-09-29 08:02:00* Test Item Value Reference Range Interpretation Comme nts APTT Patient (test code = 3173-2) See_Comment H [Automated [employer]] The system which generated this result transmitted reference range: 26 - 36 Seconds. The reference range was not used to interpret this result as normal/abnormal. Lab Interpretation (test code = 67172-8) Abnormal [facility] GLUCOSE (AUTOMATED)2020-09-29 07:46:00* Test Item Value Reference Range Interpretation Comme nts POCT GLU (test code = 9636273681) 213 mg/dL 70-110 H Lab Interpretation (test cod e = 49596-1) Abnormal [facility] GLUCOSE (AUTOMATED)2020-09-29 04:38:00* Test Item Value Reference Range Interpretation Comme nts POCT GLU (test code = 4522031277) 335 mg/dL 70-110 H Lab Interpretation (test cod e = 15555-0) Abnormal [facility] GLUCOSE (AUTOMATED)2020-09-29 01:41:00* Test Item Value Reference Range Interpretation Comme nts POCT GLU (test code = 7904646522) 326 mg/dL 70-110 H Lab Interpretation (test cod e = 99245-2) Abnormal [facility] CenteraPTT (for use with Heparin Drip)2020-09-28 23:01:00* Test Item Value Reference Range Interpretation Comme nts APTT Patient (test code = 3173-2) See_Comment [Automated Tiange ge] The system which generated this result transmitted reference range: 26 - 36 Seconds. The reference range was not used to interpret this result as normal/abnormal. Lab Interpretation (test code = 51110-1) Normal [facility] GLUCOSE (AUTOMATED)2020-09-28 13:53:00* Test Item Value Reference Range Interpretation Comme nts POCT GLU (test code = 8522413712) 192 mg/dL 70-110 H Lab Interpretation (test cod e = 03603-1) Abnormal [facility] CenterTroponin L6160-37-96 11:02:00* Test Item Value Reference Range Interpretation Comme nts TROPONIN I (test code = 4786579565) 0.184 ng/mL See_Comment H [Automated message] The [...] biotin. ? Lab Interpretation (test code = 90449-3) Abnormal [facility] CenterLIPID PANEL (26421)(TOTAL CHOLESTEROL, TRIGLYCERIDES, HDL)2020-09-28 10:35:00* Test Item Value Reference Range Interpretation Comme nts CHOL (test code = 7358244322) 150 mg/dL 120-200 HDL (test code = 4631257131) 40 mg/dL >40 L HDLC RATIO (test code = 5016152292) See_Comment [[employer]] The system which generated this result transmitted reference range: <=5.0. The reference range was not used to interpret this result as normal/abnormal. TRIG (test code = 9858701186) 134 mg/dL 30-170 LDL CHOL (test code = 72608-8) 83 mg/dL See_Comment [Automated [employer]] The system which generated this result transmitted reference range: <=160. The reference range was not used to interpret this result as normal/abnormal. VLDL (test code = 6057891142) 27 mg/dL 5-60 Lab Interpretation (test code = 92750-3) Abnormal [facility] CenteraPTT (for use with Heparin Drip)2020-09-28 09:57:00* Test Item Value Reference Range Interpretation Comme nts APTT Patient (test code = 3173-2) See_Comment H [Automated [employer]] The system which generated this result transmitted reference range: 26 - 36 Seconds. The reference range was not used to interpret this result as normal/abnormal. Lab Interpretation (test code = 05265-1) Abnormal [facility] CenterPO[facility] GLUCOSE (AUTOMATED)2020-09-28 06:35:00* Test Item Value Reference Range Interpretation Comme [facility] POCT GLU (test code = 3246471174) 271 mg/dL 70-110 H Lab Interpretation (test cod e = 65233-6) Abnormal [facility] CenterTroponin [id number] 05:06:00* Test Item Value Reference Range Interpretation Comme [facility] TROPONIN I (test code = 0552283921) 0.189 ng/mL See_Comment H [Automated message] The [...] biotin. ? Lab Interpretation (test code = 72787-6) Abnormal [facility] CenteraPTT (for use with Heparin Drip)2020-09-28 03:55:00* Test Item Value Reference Range Interpretation Comme [facility] APTT Patient (test code = 3173-2) See_Comment H [Automated Mayi Zhaopina ge] The system which generated this result transmitted reference range: 26 - 36 Seconds. The reference range was not used to interpret this result as normal/abnormal. Lab Interpretation (test code = 82149-7) Abnormal [facility] CenterCT CHEST PULMONARY PPEEPMCBS4300-98-05 21:42:18HISTORY: Positive d-dimer, rule out P.E. TECHNIQUE: [...] chronic history of poorlycontrolled diabetes. Please correlate. Vtmb, Radiant Results InftUser - 09/27/2020 3:43 PM [...] chronic history of poorlycontrolled diabetes. Please correlate. [facility] CenterLAHIATE IEXVVTGCSFMJT4574-07-82 21:42:00* Test Item Value Reference Range Interpretation Comme nts LDH (test code = 3354785979) 678 U/L 300-600 H Lab Interpretation (test cod e = 28364-5) Abnormal [facility] CenterCOVID-19 (ID NOW RAPID TESTING)2020-09-27 19:56:00* Test Item Value Reference Range Interpretation Comme nts SARS-CoV-2 Rapid ID NOW (test code = 81806-5) Not Detected Not Detected KARSON (test code = KARSON) ID NOW COVID-19 As say is an isothermal nucleic acid amplification test intended for the qualitative detection of nucleic acid from SARS-CoV-2 viral RNA in nasopharyngeal ([employer]) specimens. It is used under Emergency Use [...] clinically indicated. Lab Interpretation (test code = 13643-8) Normal [facility] CenteraPTT2020-11-12 19:50:00* Test Item Value Reference Range Interpretation Comme [facility] APTT Patient (test code = 3173-2) See_Comment [Automated message] The system which generated this result transmitted reference range: 23 - 38 Seconds. The reference range was not used to interpret this result as normal/abnormal. KARSON (test code = KARSON) The [facility] patient population mean normal value for aPTT is 30 seconds. Lab Interpretation (test code = 61658-5) Normal [facility] / [id number] 19:50:00 * Test Item Value Reference Range Interpretation Comme [facility] PROTIME PATIENT (test code = 5964-2) See_Comment [Automated messa ge] The system which generated this result transmitted reference range: 12.0 - 14.7 Seconds. The reference range was not used to interpret this result as normal/abnormal. INR (test code = 6301-6) Normal INR <1.1; Warfarin Therapeutic range 2.0 to 3.0 or 2.5 to 3.5, depending upon the indications. Lab Interpretation (test code = 21207-8) Normal [facility] Center[facility] [id number] 19:48:00* Test Item Value Reference Range Interpretation Comme [facility] TROPONIN I (test code = 6701677119) 0.207 ng/mL See_Comment H [Automated message] The system which generated this result transmitted reference range: <=0.034. The reference range was not used to interpret this result as normal/abnormal. KASRON (test code = KARSON) Equal or Less [...] biotin. ? Lab Interpretation (test code = 03743-9) Abnormal [facility]MINAL [id number] 19:46:00* Test Item Value Reference Range Interpretation Comme nts NT-proBNP (test code = 4952929451) 1370 pg/mL See_Comment H [Automated message] The system which generated this result transmitted reference range: <=125. The reference range was not used to interpret this result as normal/abnormal. KARSON (test code = KARSON) Biotin has been reported to cause a negative bias, interpret results relative to patient's use of biotin. Lab Interpretation (test code = 51026-3) Abnormal [facility] CenterD-[id number] 19:37:00* Test Item Value Reference Range Interpretation Comments D-DIMER (test code = 8294212316) See_Comment H [Automated message] The system which [...] a diagnosis. Lab Interpretation (test code = 37474-0) [facility] (NA, K, CL, CO2, GLUCOSE, BUN, CREATININE, CA)2020-09-27 19:36:00* Test Item Value Reference Range Interpretation Comme nts NA (test code = 9134081681) 134 mmol/L 135-145 L K (test code = 2169881605) 4.9 mmol/L 3.5-5 CL (test code = 1508786222) 99 mmol/L 98-108 CO2 TOTAL (test code = 7063440719) 30 mmol/L 23-31 AGAP (test code = 0214008961) 2-16 BUN (test code = 3480796512) 22 mg/dL 7-23 GLUCOSE (test code = 6384119079) 216 mg/dL 70-110 H CREATININE (test code = 1258165599) 0.78 mg/dL 0.6-1.25 CALCIUM (test code = 4559932818) 9.3 mg/dL 8.6-10.6 eGFR Calculation (Non-) (test code = 1139739317) mL/min/1.73m2 eGFR Calculation () (test code = 4124406264) mL/min/1.73m2 KARSON (test code = KARSON) Association [...] imaging tests). Lab Interpretation (test code = 99404-9) Abnormal [facility] Center[facility] Function Panel (ALB, T.PRO, BILI T, BU/BC, ALT, AST, ALK PHOS)2020-09-27 19:36:00* Test Item Value Reference Range Interpretation Comme nts TOTAL BILI (test code = 6902176374) 1.4 mg/dL 0.1-1.1 H BILI UNCON (test code = 4664538104) 0.8 mg/dL 0.1-1.1 BILI CONJ (test code = 2538268890) 0.0 mg/dL 0-0.3 T PROTEIN (test code = 0174283054) 7.2 g/dL 6.3-8.2 ALBUMIN (test code = 2866360862) 4.2 g/dL 3.5-5 ALK PHOS (test code = 0012919661) 53 U/L 34-122 ALTv (test code = 1742-6) 106 U/L 5-50 H AST(SGOT) (test code = 2956871341) 61 U/L 13-40 H Lab Interpretation (test cod e = 79762-8) Abnormal [facility] CenterLipase [id number] 19:35:00* Test Item Value Reference Range Interpretation Comme nts LIPASE (test code = 9745426530) 41 U/L 0-220 Lab Interpretation (test cod e = 75885-3) Normal [facility] CenterCBC with [id number] 19:19:00* Test Item Value Reference Range Interpretation Comme nts WBC (test code = 6690-2) See_Comment [Automated Mayi Zhaopina Azuro] The system which generated this result transmitted reference range: 4.20 - 10.70 10*3/?L. The reference range was not used to interpret this result as normal/abnormal. RBC (test code = 789-8) See_Comment [Automated Mayi Zhaopina Azuro] The system which generated this result transmitted [...] 33.6 g/dL 31.2-35 RDW-SD (test code = 24442-6) 44.4 fL 38.5-51.6 RDW-CV (test code = 788-0) 13.2 % 12.1-15.4 PLT (test code = 777-3) See_Comment [Automated Mayi Zhaopina ge] The system which generated this result transmitted reference range: 150 - 328 10*3/?L. The reference range was not used to interpret this result as normal/abnormal. MPV (test code = 82889-4) 11.4 fL 9.8-13 NRBC/100 WBC (test code = 1498483676) See_Comment [Automated me ssage] The system which generated this result transmitted reference range: 0.0 - 10.0 /100 WBCs. The reference range was not used to interpret this result as normal/abnormal. NRBC x10^3 (test code = 6341936427) <0.01 See_Comment [Automated me ssage] The system which generated this result transmitted reference range: 10*3/?L. The reference range was not used to interpret this result as normal/abnormal. GRAN MAT (NEUT) % (test code = 770-8) 60.5 % IMM GRAN % (test code = 6863032249) 0.60 % LYMPH % (test code = 736-9) 27.0 % MONO % (test code = 5905-5) 8.4 % EOS % (test code = 713-8) 2.9 % BASO % (test code = 706-2) 0.6 % GRAN MAT x10^3(ANC) (test code = 7071173314) 4.80 10*3/uL 1.99-6.95 IMM GRAN x10^3 (test code = 6182853688) 0.05 10*3/uL 0-0.06 LYMPH x10^3 (test code = 731-0) 2.14 10*3/uL 1.09-3.23 MONO x10^3 (test code = 742-7) 0.67 10*3/uL 0.36-1.02 EOS x10^3 (test code = 711-2) 0.23 10*3/uL 0.06-0.53 BASO x10^3 (test code = 704-7) 0.05 10*3/uL 0.01-0.09 [facility] CenterChest 1 [id number] 19:01:56CHEST PORTABLE ONE VIEW HISTORY:CP, SOB TECHNIQUE: [...] is seen.CONCLUSIONS:1. Mild pulmonary edema and [facility] Date/Time Note Provider Source 2024-10-06 14:19:01 Radha Santana2024-11-21 14:19:01 Radha Santana
[2025-01-31] MEDS ORDERED: WATER FOR INJ,STERILE 10 ML ONE (15:07)
[2025-01-31] MEDS ORDERED: ALTEPLASE 2 MG/VIAL IV ONE (15:10)
--- NOTE | 2025-01-31 16:03 | ER ---
Nurse's Notes [facility] Name: Artem Pena Age: 64 yrs Sex: Male : 1960 Arrival Date: 01/31/2025 Time: 13:16 Bed 25 Private MD: Diagnosis: Encounter for mechanical complication of PICC line, resolved Presentation: 01/31 13:50 Chief complaint: Patient states: his PICC line is clogged, it's been taking longer to iw do my infusions, today the home health nurse could not get anything out of it , is prescribed vancomycin and meropenem , for osteomyelitis in left foot , sees Dr. Barron. Coronavirus screen: At this time, the client does not indicate any symptoms associated with coronavirus-19. Ebola Screen: No symptoms or risks identified at this time. Initial Sepsis Screen: Does the patient meet any 2 criteria? No. Patient's initial sepsis screen is negative. Does the patient have a suspected source of infection? No. Patient's initial sepsis screen is negative. Risk Assessment: Do you want to hurt yourself or someone else? Patient reports no desire to harm self or others. Onset of symptoms was January 31, 2025. 13:50 Method Of Arrival: Ambulatory iw 13:50 Acuity: TANGELA 3 iw Historical: - Allergies: 13:52 Latex; iw 13:52 Cipro; iw 13:52 Lisinopril; iw 13:52 metformin; iw 13:52 Piryhxx-Ldb-Ymq Reductase Inhibitors; iw - PMHx: 13:52 Hypertension; diabetes mellitus; Congestive heart failure; Myocardial infarction; iw - PSHx: 13:52 Coronary artery bypass graft; iw - Immunization history:: Adult Immunizations up to date. - Infectious Disease History:: Denies. - Social history:: Smoking status: Patient denies any tobacco usage or history of. Screenin:10 [facility] ED Fall Risk Assessment (Adult) History of falling in the last 3 months, me1 including since admission No falls in past 3 months (0 pts) Confusion or Disorientation No (0 pts) Intoxicated or Sedated No (0 pts) Impaired Gait No (0 pts) Mobility Assist Device Used No (0 pt) Altered Elimination No (0 pt) Score/Fall Risk Level 0 - 2 = Low Risk Maintained a safe environment, Provided non-skid footwear, Hourly rounding (assess needs \T\ fall precautionary measures) done. Abuse screen: Denies threats or abuse. Nutritional screening: No deficits noted. Tuberculosis screening: No symptoms or risk factors identified. Assessment: 15:10 General: Appears in no apparent distress. well groomed, well developed, well nourished, me1 Behavior is calm, cooperative, appropriate for age, Reports his PICC line is clogged, it's been taking longer to do my infusions, today the home health nurse could not get anything out of it , is prescribed vancomycin and meropenem , for osteomyelitis in left foot , sees Dr. Barron. Pain: Denies pain. Neuro: Level of Consciousness is awake, alert, obeys commands, Oriented to person, place, time, situation, Appropriate for age. Cardiovascular: Patient's skin is warm and dry. Respiratory: Airway is patent Respiratory effort is even, unlabored, Respiratory pattern is regular, symmetrical. GI: No signs and/or symptoms were reported involving the gastrointestinal system. : No signs and/or symptoms were reported regarding the genitourinary system. EENT: No signs and/or symptoms were reported regarding the EENT system. Derm: Skin is healthy with good turgor, Skin is pink, warm \T\ dry. Wound noted toe. Musculoskeletal: No signs and/or symptoms reported regarding the musculoskeletal system. Vital Signs: 13:50 BP 135 / 76; Pulse 77; Resp 18; Temp 97.8(O); Pulse Ox 100% on R/A; Weight 129.27 kg; iw Height 6 ft. 4 in. ; Pain 0/10; 16:04 BP 132 / 74; Pulse 73; Resp 17; Temp 98.6; Pulse Ox 100% ; me1 13:50 Body Mass Index 34.69 (129.27 kg, 193.04 cm) iw 13:50 Pain Scale: Adult iw ED Course: 13:22 Patient arrived in ED. al6 13:26 Martha Diez PA-C is PHCP. sb4 13:26 Krzysztof Stiles DO is Attending Physician. sb4 13:51 Triage completed. iw 13:52 Arm band placed on. iw 15:09 Mayra Jett, RA is Primary Nurse. me1 15:10 Patient has correct armband on for positive identification. Bed in low position. Call me1 light in reach. Side rails up X2. Provided Education on: POC. Verbalized understanding.. Client placed on continuous cardiac and pulse oximetry monitoring. NIBP monitoring applied. Pulse ox on. NIBP on. 15:10 No provider procedures requiring assistance completed. Flushed right PICC line cath radu me1 and then victoria back 5 ml of blood, flushed with 10 ml NS in each lumen. 16:[address] me1 Administered Medications: 15:19 Drug: Cathflo Activase IV Thrombolytics 2 mg IV Thrombolytics once; into each catheter me1 lumen, may repeat once Route: IV Thrombolytics; 15:20 Follow up: Response: No adverse reaction me1 16:00 Follow up: Response: No adverse reaction; Marked relief of symptoms me1 Medication: 15:10 VIS not applicable for this client. me1 Outcome: 16:02 Discharge ordered by . sb4 16:17 Discharged to home ambulatory, me1 16:17 Condition: stable 16:17 Discharge instructions given to patient, Instructed on discharge instructions, follow up and referral plans. Demonstrated understanding of instructions, follow-up care, 16:19 Patient left the ED. me1 Signatures: Demetria Cabrera RN RN iw Martha Diez PA-C PATadeo sb4 Mayra Jett RN RN me1 Kristin Larsen6 Corrections: (The following items were deleted from the chart) 13:53 13:50 BP 135 / 76; Pulse 77bpm; Resp 18bpm; Pulse Ox 100% RA; 129.27 kg; Height 6 ft. 4 iw in.; BMI: 34.6; Pain 0/10, Adult; iw 16:00 13:50 Chief complaint: Patient states: his PICC line is clogged, it's been taking me1 longer to do my infusions, today the home health nurse could not get anything out of it , is prescribed vancomycin and meropenem , for osteomyelitis in left foot , sees Dr. Barron iw
--- NOTE | 2025-01-31 16:03 | EDPHYS ---
Physician Documentation [facility] Name: Artem Pena Age: 64 yrs Sex: Male : 1960 Arrival Date: 01/31/2025 Time: 13:16 Bed 25 Private MD: ED Physician Krzysztof Stiles HPI: 01/31 15:12 This 64 yrs old Male presents to ER via Ambulatory with complaints of picc line problem.sb4 15:12 Patient states that he has had a PICC line in his right upper arm for 2 months now, is sb4 receiving IV antibiotics for a skin infection. States that he has noticed over the past few days that his antibiotics are not administering as quickly as normal. Additionally, he states his home health nurse came by today and was unable to draw blood from it. He denies any pain in the area. Historical: - Allergies: 13:52 Latex; iw 13:52 Cipro; iw 13:52 Lisinopril; iw 13:52 metformin; iw 13:52 Dlncnyz-Njj-Bsb Reductase Inhibitors; iw - PMHx: 13:52 Hypertension; diabetes mellitus; Congestive heart failure; Myocardial infarction; iw - PSHx: 13:52 Coronary artery bypass graft; iw - Immunization history:: Adult Immunizations up to date. - Infectious Disease History:: Denies. - Social history:: Smoking status: Patient denies any tobacco usage or history of. ROS: 15:13 Constitutional: Negative for fever, chills, and weight loss, sb4 15:13 All other systems are negative, Exam: 15:13 Constitutional: This is a well developed, well nourished patient who is awake, alert, sb4 and in no acute distress. Head/Face: Normocephalic, atraumatic. Eyes: Extra-ocular motions intact. Periorbital areas with no swelling, redness, or edema. Respiratory: No increased work of breathing, no retractions or nasal flaring. Skin: Warm, dry with normal turgor. Normal color with no rashes, no lesions, and no evidence of cellulitis. 15:13 Skin: PICC line right bicep area. No swelling, bruising, warmth, signs of infiltration. Vital Signs: 13:50 BP 135 / 76; Pulse 77; Resp 18; Temp 97.8(O); Pulse Ox 100% on R/A; Weight 129.27 kg; iw Height 6 ft. 4 in. ; Pain 0/10; 16:04 BP 132 / 74; Pulse 73; Resp 17; Temp 98.6; Pulse Ox 100% ; me1 13:50 Body Mass Index 34.69 (129.27 kg, 193.04 cm) iw 13:50 Pain Scale: Adult iw MDM: 13:27 Medical Screening Exam initiated sb4 16:12 Data reviewed: vital signs, nurses notes, and as a result, I will discharge patient. sb4 Counseling: I had a detailed discussion with the patient and/or guardian regarding the historical points, exam findings, and any diagnostic results supporting the discharge/admit diagnosis, the need for outpatient follow up, for definitive care, to return to the emergency department if symptoms worsen or persist or if there are any questions or concerns that arise at home. ED course: PICC line functioning properly after cathflo, will safely discharge patient home at this time. Administered Medications: 15:19 Drug: Cathflo Activase IV Thrombolytics 2 mg IV Thrombolytics once; into each catheter me1 lumen, may repeat once Route: IV Thrombolytics; 15:20 Follow up: Response: No adverse reaction me1 16:00 Follow up: Response: No adverse reaction; Marked relief of symptoms me1 Disposition: 16:30 I was immediately available on-site in the Emergency Department for consultation in the ms3 care of the patient. Disposition Summary: 01/31/25 16:02 Discharge Ordered Notes: Location: Home sb4 Problem: new sb4 Symptoms: have improved sb4 Condition: Stable sb4 Diagnosis - Encounter for mechanical complication of PICC line, resolved sb4 Followup: sb4 - With: Private Physician - When: 1 week - Reason: Recheck today's complaints, Continuance of care, Re-evaluation by your physician Discharge Instructions: - Discharge Summary Sheet sb4 - PICC Home Care Guide sb4 Forms: - Patient Portal Instructions sb4 - Leadership Thank You Letter sb4 Signatures: Demetria Cabrera, RN RN Krzysztof Stiles DO DO ms3 Martha Diez PA-C PA-C sb4 Mayra Jett RN RN me1
[2025-01-31 19:34] VITALS: O2SAT 100
[2025-01-31 19:36] VITALS: BP 132/74; TEMP 98.6
== END 2025-01-31 16:19 | disposition home or self-care (01) ==
LOC: ER 13:16
DX: T82.594A Other mechanical complication of infusion catheter, initial encounter (principal)
CPT/HCPCS: 36593; J2997